=== PATIENT | female | born 1985 | race Caucasian/White ===

== ENCOUNTER 2021-06-14 04:26 | Emergency (ER) | payer SELFPAY ==
--- NOTE | ~2021-06-14 | XR_ITS ---
EXAMINATION: XR CHEST CLINICAL INFORMATION: COVID, difficulty breathing. COMPARISON: None TECHNIQUE: Frontal view of the chest was obtained. FINDINGS: No significant abnormality is noted involving the heart, lungs, mediastinum, bony thorax or soft tissues. XR/XR chest 1V IMPRESSION: No acute cardiopulmonary process.
[2021-06-14 04:44] VITALS: BP 108/59; PULSE 92; RESP 20; TEMP 36.6; O2SAT 99; BMI 21.9
--- NOTE | 2021-06-14 07:01 | ED_ITS ---
HPI - General Adult General Chief complaint: General Medical Stated complaint: COVID + Time Seen by Provider: 06/14/21 06:47 Source: patient and cloud consultant Mode of arrival: ambulatory Limitations: no limitations History of Present Illness HPI narrative: 35 years old female with history of asthma presented with COVID like symptoms. [place] from [place], is sick with COVID like symptoms and patient think she contracted the infection from her , patient is known asthmatic, in having difficulty breathing and wheezing, subjective fever. Been having productive cough with clear sputum. And mild headache, generalized body ache, subjective fever. No lower extremity swelling, Related Data Previous Rx's Medication Instructions Recorded acetaminophen 325 mg tablet 325 mg PO QID PRN #30 tab 06/14/21 (Athenol) albuterol sulfate 90 mcg/actuation 1 puff INHALATION QID PRN #6.7 g 06/14/21 aerosol inhaler (ProAir HFA) Allergies Allergy/AdvReac Type Severity Reaction Status Date / Time Penicillins Allergy Severe Anaphylaxis Verified 06/14/21 06:59 Review of Systems Review of Systems: All other systems are reviewed and are negative Constitutional: Reports as per HPI and Reports no additional constitutional complaints Eyes: Reports as per HPI and Reports no additional eye complaints Reports system reviewed and no additional complaints, except as documented Cardiovascular: Reports as per HPI and Reports no additional cardiovascular complaints Respiratory: Reports as per HPI and Reports no additional respiratory complaints Gastrointestinal: Reports as per HPI and Reports no additional gastrointestinal complaints Genitourinary: Reports no additional female genitourinary complaints Musculoskeletal: Reports no additional musculoskeletal complaints Skin/Breast: Reports system reviewed and no additional complaints, except as docu Psychiatric: Reports no additional psychiatric complaints Endocrine: Reports no additional endocrine complaints Hematologic/Lymphatic: Reports no additional hematologic/lymphatic complaints Allergic/Immunologic: Reports no additional allergic/immunologic complaints Reports system reviewed and no additional complaints, except as documented and Reports Abnormal speech present [facility] Social History Social History Advance Directives: No Advance Directives Information Provided: Yes Physical Exam Vital Signs: Vital Signs: Last Vital Signs Temp 98.5 F 06/14/21 07:27 Pulse 84 06/14/21 08:06 Resp 18 06/14/21 08:06 BP 107/62 06/14/21 07:27 Pulse Ox 96 06/14/21 07:27 BMI result Body Mass Index 21.9 Vital signs have been reviewed as appeared to be correct. Blood pressure normal. Heart rate normal. Respiration rate normal. Temperature normal. Oxygen saturation normal. Appearance: Alert. Oriented X3. No acute distress. Head: Normal external exam. Normocephalic. Atraumatic. No Nice signs noted. No raccoon eyes noted Eyes: PERRLA. EOMI. Conjunctiva and sclera normal. Eyelids normal. ENT: TM's Normal. Pharynx normal. Uvula midline. Moist mucous membranes. No trismus noted. No drooling noted. No muffled voice noted. Neck: Normal inspection. Neck supple. FROM. No adenopathy. Thyroid Normal. No meningeal signs. No neck mass noted. CVS: Normal heart rate and rhythm. Heart sound normal. No murmurs noted. Pulses normal throughout. Respiratory: No respiratory distress. Painless inspiration. Breath sounds normal. Bilateral diffuse mild expiratory wheezing, with prolonged expiration. Abdomen: Soft and nontender. Bowel sounds normal in all 4 quadrants. No distention noted. No organomegaly noted. No visible injury noted. Back: No CVA tenderness. Full range of motion noted. Skin: Skin warm and dry. Normal skin color. Normal skin turgor. No rashes/lesions/lacerations noted. Extremities: No lower extremity edema. Extremities exhibit normal range of motion. Extremities nontender. Neuro: Oriented X 3. Cranial nerve exam: II-XII are grossly intact No motor deficit. No sensory deficit. Reflexes normal. Course Course Course Narrative: Assessment and plan. 35-year-old female came in with flu-like symptoms, patient tested positive for COVID, patient has a sick contact (). Patient with history of asthma physical exam is consistent with acute asthma exacerbation, patient is improving with bronchodilator. Patient also complain of headache as part of COVID infection patient was instructed to take Tylenol for it. Medical Decision Making Lab Data Lab results reviewed: Yes I reviewed the patient's lab results. Labs: Lab Results 06/14/21 06/14/21 06/14/21 Range/Units 07:37 07:37 07:42 Urine Color YELLOW Urine Appearance CLEAR Urine pH 6.0 (5.0-8.0) Ur Specific [place] 1.015 (1.005-1.025) Urine Protein NEG (NEG-TRACE) MG/DL Urine Glucose (UA) NEG (NEG) MG/DL Urine Ketones NEG (NEG) MG/DL Urine Blood TRACE (NEG) Urine Nitrite NEG (NEG) Ur Leukocyte Esterase NEG (NEG) Urine RBC 0-2 (0) /HPF Urine WBC 0-2 (0-4) /HPF Ur Squamous Epith Cells TRACE /LPF Urine Bacteria TRACE /LPF Urine Test NEGATIVE (NEGATIVE) Influenza Type A (PCR) NEGATIVE (Negative) Influenza Type B (PCR) NEGATIVE (Negative) RSV RNA Qual (PCR) NEGATIVE (Negative) SARS-CoV-2 RNA (RT-PCR) POSITIVE A (Negative) Imaging Data Chest x-ray: Attestation: I personally reviewed and interpreted this imaging study as follows: Radiologist's impression: No acute cardiopulmonary process. Discharge Plan Discharge Clinical Impression: COVID-19 virus infection, Asthma exacerbation Patient Disposition: Home, Self-Care Instructions: Asthma (ED), COVID-19 (Coronavirus Disease 2019) (ED) Prescriptions: New albuterol sulfate [ProAir HFA] 90 mcg/actuation HFA aerosol inhaler 1 puff inhalation QID PRN (Reason: shortness of breath or wheezing) Qty: 6.7 RF: 0 acetaminophen [Athenol] 325 mg tablet 325 mg PO QID PRN (Reason: fever or pain) Qty: 30 RF: 0 Referrals: Physician,Unknown J [Primary Care Provider] - 2 days
[2021-06-14] MEDS: Acetaminophen 325 MG TABLET 650 MG PO ×2 (07:25→09:38)
[2021-06-14 07:27] VITALS: BP 107/62; PULSE 86; RESP 16; TEMP 36.9; O2SAT 96
[2021-06-14 07:48] LABS: Appearance Urine CLEAR; Color Urine YELLOW; Glucose Urine UA NEG (NEG); Leukocyte Esterase Urine NEG (NEG); Nitrite Urine NEG (NEG); Specific Gravity - Urine 1.015 (1.005-1.025); UACC Culture Trigger NO; Urine Blood TRACE (NEG); Urine Ketones NEG (NEG); Urine Protein NEG (NEG-TRACE)
[2021-06-14 07:50] LABS: UPreg QC Valid YES; Urine Pregnancy NEGATIVE (NEGATIVE)
[2021-06-14 08:00] LABS: Squamous Epithelial Cell Urine TRACE /LPF
[2021-06-14 08:01] LABS: Bacteria Urine TRACE /LPF; RBC Urine 0-2 /HPF (0); WBC Urine 0-2 /HPF (0-4)
[2021-06-14] MEDS: Albuterol Sulfate 90 MCG 8 GM INHALER 2 PUFF INHALE (08:05)
[2021-06-14 08:06] VITALS: PULSE 84; RESP 18; O2SAT 95
[2021-06-14 08:26] LABS: Influenza A PCR NEGATIVE (Negative); Influenza B PCR NEGATIVE (Negative); Resp Syncy Virus RNA Qual PCR NEGATIVE (Negative); SARS COV2 PCR INHOUSE POSITIVE (Negative)
[2021-06-14 09:38] VITALS: BP 111/42; PULSE 77; RESP 16; TEMP 36.7; O2SAT 99
== END 2021-06-14 09:43 | disposition home or self-care (01) ==
PROVIDERS: Emergency Provider Emergency Medicine
DX: U07.1 COVID-19 (principal); J45.901 Unspecified asthma with (acute) exacerbation; R51.9 Headache, unspecified
CPT/HCPCS: 0241U; 71045; 81001; 81025; 94640; 99284

== ENCOUNTER 2021-08-30 15:41 | Emergency (ER) | payer MEDICAID, SELFPAY ==
[2021-08-30 16:17] VITALS: BP 107/52; PULSE 88; RESP 18; TEMP 36.8; O2SAT 100; BMI 21.1
--- NOTE | 2021-08-30 16:47 | ECG_ITS ---
Test Reason : CP Blood Pressure : / mmHG Vent. Rate : 081 BPM Atrial Rate : 081 BPM P-R Int : 102 ms QRS Dur : 078 ms QT Int : 370 ms P-R-T Axes : -20 079 061 degrees QTc Int : 429 ms Sinus rhythm with short AK Otherwise normal ECG No previous ECGs available Referred By: Barbara Catherine Electronically Signed By:CRISTHIAN LANDAVERDE
--- NOTE | 2021-08-30 16:50 | ED_ITS ---
HPI - General Adult General Chief complaint: General Medical Stated complaint: body aches,chest pain ,vomiting Time Seen by Provider: 08/30/21 16:30 Source: patient Mode of arrival: ambulatory Limitations: no limitations History of Present Illness HPI narrative: Patient is a 35-year-old female with a past medical history of asthma. She presents emergency department today for evaluation of body aches, chest pain, and nausea/vomiting/diarrhea. Diffuse anterior chest pain , made worse by coughing deep breathing, states she has vomited about 5 times, yellow bile, and a couple episodes of diarrhea. She received her COVID-19 booster vaccination yesterday; Moderna. About 4 hours later she developed her symptoms. Reports feeling completely well prior to receiving booster vaccination. She received her 1st 2 doses with Moderna as well, and had no symptoms after. Related Data Previous Rx's Medication Instructions Recorded acetaminophen 325 mg tablet 325 mg PO QID PRN #30 tab 06/14/21 (Athenol) albuterol sulfate 90 mcg/actuation 1 puff INHALATION QID PRN #6.7 g 06/14/21 aerosol inhaler (ProAir HFA) ondansetron 4 mg disintegrating 4 mg PO Q8H PRN #12 tab 08/30/21 tablet Allergies Allergy/AdvReac Type Severity Reaction Status Date / Time Penicillins Allergy Severe Anaphylaxis Verified 06/14/21 06:59 Review of Systems Review of Systems: Constitutional: No weight loss, fever, chills, weakness or fatigue. ENT: No sneezing, congestion, runny nose or sore throat. Skin: No rash or itching. Cardiovascular: Positive chest pain. No palpitations or pedal edema. Respiratory: No shortness of breath, cough or sputum production. Gastrointestinal: Positive nausea, vomiting, diarrhea. No abdominal pain or blood in stool. Genitourinary: No burning micturition. No urinary frequency or incontinence. Neurologic: No headache, dizziness, syncope, unilateral weakness, ataxia, numbness or tingling in the extremities. Musculoskeletal: Generalized body aches Hematologic: No bleeding or bruising. Lymphatics: No enlarged lymph nodes. Psychiatric:No depression or anxiety. Endocrine: No polyuria or polydipsia. Yes all other systems are reviewed and are negative PMFSH Past Medical History Attestation statement: The following information was validated with the patient. Source: old records reviewed Social History Social History Advance Directives: No Advance Directives Information Provided: No Physical Exam ED Vital Signs: Vital Signs - 24 hr 08/30/21 16:17 08/30/21 18:54 Temperature 98.2 F 98.6 F Pulse Rate 88 96 Respiratory Rate 18 16 Blood Pressure 107/52 L 109/55 L Pulse Oximetry 100 99 BMI result Body Mass Index 21.1 Vital signs have been reviewed as normal and appeared to be correct. Blood pressure normal.? Heart rate normal.? Respiration rate normal. Temperature normal.? Oxygen saturation normal. Appearance: Alert.?Oriented to person, place and time. No acute distress.?Normal affect. Eyes: Pupils equal, round and reactive to light.? ENT: Pharynx normal.?? Neck: Normal inspection.? Neck supple.?? CVS: Heart sounds normal. Normal heart rate and rhythm.? Pulses normal.?? Respiratory: No respiratory distress.? Lung sounds clear to auscultation bilaterally?? Abdomen: Soft and non-tender. Normoactive bowel sounds. No pulsatile mass.?? Skin: Skin warm and dry.? Normal skin color.? Normal skin turgor.?? Extremities: No lower extremity edema.? Neuro: Moves all extremities spontaneously. Sensation intact bilaterally. CN II- XII intact. No focal neuro deficits. Ambulates with normal steady gait. Course Course Course Narrative: Patient improved old male being evaluated for body aches, chest pain, N/V/D after receiving COVID-19 booster vaccination. Will obtain basic labs to evaluate for leukocytosis, anemia, abnormal electrolytes, abnormal renal function. EKG and troponin to evaluate for ischemia, possible myocarditis after receiving COVID-19 vaccine, no risk factors so unlikely to be ACS. COVID-19 and influenza testing to be obtained. Patient will receive Tylenol and ibuprofen for body aches, denies nausea at this time. Disposition will be pending results. Reevaluation(s) Reevaluation #1: COVID-19 and influenza testing are negative. CBC reveals a mild leukocytosis. BMP with hypokalemia, 3.0, will replace with potassium chloride 40 mEq, magnesium is normal 2.0. Troponin undetectable, EKG reveals sinus rhythm, no acute concerns for ischemia, therefore unlikely to be ACS or myocarditis. Patient tolerating foor and drink, no nausea or vomiting. Time: 18:58 Medical Decision Making Medical Records Medical records reviewed: Yes I reviewed the patient's medical records. Lab Data Lab results reviewed: Yes I reviewed the patient's lab results. Result diagrams: 08/30/21 17:45 08/30/21 17:45 Labs: Lab Results 08/30/21 08/30/21 08/30/21 Range/Units 17:45 17:45 17:45 WBC 11.9 H (4.8-10.8) X10*3/uL RBC 4.66 (4.20-5.50) X10*6/uL Hgb 12.4 (12.0-16.0) g/dl Hct 37.9 (37.0-47.0) % MCV 81.3 (80.0-98.0) fL MCH 26.6 L (27.0-33.0) pg MCHC 32.7 (31.0-35.0) g/dl RDW 13.6 (11.0-16.0) % Plt Count 298 (160-400) X10*3/uL MPV 10.2 (9.4-12.3) fL Immature Gran % (Auto) 0.5 H (0.0-0.4) % Neut % (Auto) 80.2 H (45-73) % Lymph % (Auto) 10.9 L (20-40) % Whitman % (Auto) 8.0 (2-11) % Eos % (Auto) 0.1 (0-4) % Baso % (Auto) 0.3 (0-2) % Lymph # (Auto) 1.3 (1.2-4.9) X10*3/uL Whitman # (Auto) 1.0 (0.1-1.2) X10*3/uL Eos # (Auto) 0.0 (0.0-0.4) X10*3/uL Baso # (Auto) 0.0 (0.0-0.2) X10*3/uL Abs Immat Gran (auto) 0.06 H (0.00-0.03) X10*3/uL Absolute Neuts (auto) 9.6 H (2.0-8.3) x10*3/uL Absolute Nucleated RBC 0.000 (0.0-0.012) X10*3/uL Nucleated RBC % (auto) 0.0 (0.0-0.2) /100WBC Sodium (135-145) mmol/L Potassium (3.3-5.1) mmol/L Chloride (96-108) mmol/L Carbon Dioxide (22-29) mmol/L Anion Gap (12-20) BUN (9-16) mg/dL Creatinine (0.5-1.4) mg/dL Estim Creat Clear Calc Estimated GFR Random Glucose (60-115) mg/dL Calcium (8.4-10.2) mg/dL Magnesium (1.6-2.6) mg/dL Troponin I High Sens (<3.5-17.0) ng/L COVID-19 (FREDDIE) Negative (Negative) COVID-19 Clin Com See Note Influenza Type A (KIMBERLEY) Negative (Negative) Influenza Type B (KIMBERLEY) Negative (Negative) Influenza A & B Note See Note 08/30/21 08/30/21 Range/Units 17:45 17:45 WBC (4.8-10.8) X10*3/uL RBC (4.20-5.50) X10*6/uL Hgb (12.0-16.0) g/dl Hct (37.0-47.0) % MCV (80.0-98.0) fL MCH (27.0-33.0) pg MCHC (31.0-35.0) g/dl RDW (11.0-16.0) % Plt Count (160-400) X10*3/uL MPV (9.4-12.3) fL Immature Gran % (Auto) (0.0-0.4) % Neut % (Auto) (45-73) % Lymph % (Auto) (20-40) % Whitman % (Auto) (2-11) % Eos % (Auto) (0-4) % Baso % (Auto) (0-2) % Lymph # (Auto) (1.2-4.9) X10*3/uL Whitman # (Auto) (0.1-1.2) X10*3/uL Eos # (Auto) (0.0-0.4) X10*3/uL Baso # (Auto) (0.0-0.2) X10*3/uL Abs Immat Gran (auto) (0.00-0.03) X10*3/uL Absolute Neuts (auto) (2.0-8.3) x10*3/uL Absolute Nucleated RBC (0.0-0.012) X10*3/uL Nucleated RBC % (auto) (0.0-0.2) /100WBC Sodium 137 (135-145) mmol/L Potassium 3.0 L (3.3-5.1) mmol/L Chloride 104 (96-108) mmol/L Carbon Dioxide 22 (22-29) mmol/L Anion Gap 14 (12-20) BUN 11 (9-16) mg/dL Creatinine 0.66 (0.5-1.4) mg/dL Estim Creat Clear Calc 122.9 Estimated GFR > 60 Random Glucose 91 (60-115) mg/dL Calcium 9.5 (8.4-10.2) mg/dL Magnesium 2.0 (1.6-2.6) mg/dL Troponin I High Sens < 3.5 (<3.5-17.0) ng/L COVID-19 (FREDDIE) (Negative) COVID-19 Clin Com Influenza Type A (KIMBERLEY) (Negative) Influenza Type B (KIMBERLEY) (Negative) Influenza A & B Note ECG Data Attestation: I personally reviewed and interpreted this ECG as follows: Prior ECG tracings: not available for review Interpretation: Rate: 80 Rhythm:? Sinus rhythm [place]:? Normal Normal P waves.? Short TN interval; 102, no delta wave Normal QRS complex.?? ST T wave :??No ST elevation, no ST depression, no T-wave inversion qTC: 429 prior studies:?none available The study has been interpreted contemporaneously by me. Discharge Plan Discharge Clinical Impression: Body aches after vaccination, Vomiting Patient Disposition: Home, Self-Care Additional Instructions: Your potassium was low, therefore we replaced that while you were here. Your symptoms are most consistent with reaction after receiving COVID-19 booster vaccination. Please use Tylenol and ibuprofen as needed for body aches, be sure to rest and drink plenty of fluids. You can use Zofran as needed for nausea and vomiting. Please contact your primary care provider to schedule a follow-up appointment within 3 days. You can return to the emergency department with any new or worsening symptoms or concerns. Prescriptions: New ondansetron 4 mg tablet,disintegrating 4 mg PO Q8H PRN (Reason: nausea and vomiting) Qty: 12 0RF No Action albuterol sulfate [ProAir HFA] 90 mcg/actuation HFA aerosol inhaler 1 puff inhalation QID PRN (Reason: shortness of breath or wheezing) Qty: 6.7 0RF acetaminophen [Athenol] 325 mg tablet 325 mg PO QID PRN (Reason: fever or pain) Qty: 30 0RF Interventions: ED Discharge Assessment Last Done: 08/30/21 19:43 Discharge Date/Time: 08/30/21 19:46
[2021-08-30] MEDS: Acetaminophen 325 MG TABLET 975 MG PO (17:04)
[2021-08-30] MEDS: Ibuprofen 600 MG TABLET PO (17:05)
[2021-08-30 17:52] LABS: MANUAL DIFF FLAG NO
[2021-08-30 17:55] LABS: Basophils Percent Auto 0.3 % (0-2); Eosinophils Percent Auto 0.1 % (0-4); Hematocrit 37.9 % (37.0-47.0); Hemoglobin 12.4 g/dl (12.0-16.0); Imm Gran Abs Auto 0.06 X10*3/uL (0.00-0.03); Imm Gran Pct Auto 0.5 % (0.0-0.4); Lymphocytes Absolute Auto 1.3 X10*3/uL (1.2-4.9); Lymphocytes Percent Auto 10.9 % (20-40); Mean Corpuscular HGB Conc 32.7 g/dl (31.0-35.0); Mean Corpuscular Hemoglobin 26.6 pg (27.0-33.0); Mean Corpuscular Volume 81.3 fL (80.0-98.0); Mean Platelet Volume 10.2 fL (9.4-12.3); Neutrophils Absolute Auto 9.6 x10*3/uL (2.0-8.3); Neutrophils Percent Auto 80.2 % (45-73); Platelet Count 298 X10*3/uL (160-400); Red Blood Count 4.66 X10*6/uL (4.20-5.50); Red Cell Distribution Width 13.6 % (11.0-16.0); White Blood Count 11.9 X10*3/uL (4.8-10.8)
[2021-08-30 18:09] LABS: Anion Gap 14 (12-20); Blood Urea Nitrogen 11 mg/dL (9-16); Calcium 9.5 mg/dL (8.4-10.2); Carbon Dioxide 22 mmol/L (22-29); Chloride 104 mmol/L (96-108); Creatinine Clr Calc Pharmacy 122.9; Estimated Glomerular Filt Rate > 60; Glucose Random 91 mg/dL (60-115); Sodium 137 mmol/L (135-145)
[2021-08-30 18:14] LABS: Influenza A Negative (Negative); Influenza B2 Negative (Negative)
[2021-08-30 18:16] LABS: COVID-19 Test Negative (Negative); Troponin-I High Sensitivity < 3.5 ng/L (<3.5-17.0)
[2021-08-30] MEDS: Potassium Chloride Packet 20 MEQ PACKET 40 MEQ PO (18:52)
[2021-08-30 18:54] VITALS: BP 109/55; PULSE 96; RESP 16; TEMP 37; O2SAT 99
--- NOTE | 2021-08-30 19:03 | PC.NURSE ---
PT GIVEN SANDWICH AND DRINK.
== END 2021-08-30 19:46 | disposition home or self-care (01) ==
PROVIDERS: Nurse Practitioner Family; Emergency Provider Emergency Medicine
DX: M79.10 Myalgia, unspecified site (principal); R07.89 Other chest pain; R11.10 Vomiting, unspecified; Z20.822 Contact with and (suspected) exposure to COVID-19; Z79.899 Other long term (current) drug therapy
CPT/HCPCS: 36415; 80048; 83735; 84484; 85025; 87502; 87635; 93005; 99283; 99284

== ENCOUNTER 2021-09-21 13:03 | Outpatient (REF) | payer MEDICAID, SELFPAY ==
--- NOTE | ~2021-09-21 | MM_ITS ---
EXAMINATION: MM DIAGNOSTIC DIGITAL BREAST TOMOSYNTHESIS, BILATERAL US DIAGNOSTIC ULTRASOUND BREAST, LEFT CLINICAL INFORMATION: 35-year-old with superior left breast pain for 1-2 weeks. No erythema or palpable mass. Intermittent milky unilateral left nipple discharge. Breast feeding discontinued approximately 18 months ago. No discharge from right. Bilateral nipple piercings performed approximately 5 days ago. No prior breast imaging. Family history breast cancer, paternal grandmother. The lifetime risk of breast cancer based on the Tyrer-Cuzick Model is 13%. COMPARISON: None (current study represents initial baseline exam). TECHNIQUE: Digital breast tomosynthesis is performed in both the craniocaudal and mediolateral oblique views along with computer-aided detection (CAD). Synthesized 2D images are generated from the tomosynthesis. Additional views are provided: Exaggerated left CC, spot left MLO x2, exaggerated right CC, spot right MLO. Ultrasound left breast is targeted to the area of clinical concern 10:00 through 2:00 position. In addition, subareolar and circumferential periareolar left breast also evaluated with ultrasound. Grayscale imaging and color Doppler are performed without and with harmonics. FINDINGS: The breasts are heterogeneously dense, which may obscure small masses (ACR BI-RADS breast composition Category c). There are no significant masses, abnormal calcifications, or other abnormalities. There is no skin thickening or coarsening of the Panchito's ligaments. The axilla and skin contours are unremarkable. There are bilateral nipple piercings. Ultrasound left breast demonstrates no cystic or solid mass or architectural abnormality. There is no architectural abnormality or focal duct ectasia. No skin thickening or edema tracking in soft tissue planes. Results are discussed with the patient at time of visit. Patient's breast pain may be managed based on the clinical impression. If the spontaneous unilateral left nipple discharge is persistent or increasing, further assessment may be considered with breast MRI without and with contrast. MM/MM tomosynthesis diagnostic BI IMPRESSION: -No mammographic evidence of malignancy or inflammatory changes. -Unremarkable left breast ultrasound.. ASSESSMENT: BI-RADS 1: Negative RECOMMENDATION: 1. Patient's breast pain should be managed based on the clinical impression. If the spontaneous unilateral left nipple discharge is persistent or increasing, further assessment may be considered with breast MRI without and with contrast. 2. Otherwise, routine annual screening mammography, beginning age 40 or earlier as clinical risk factors warrant. This patient's information was entered into a reminder system with a target due date for their next mammogram.
== END 2021-09-21 13:04 | disposition home or self-care (01) ==
LOC: HO.MAMMO 13:03
PROVIDERS: PCP Internal Medicine; Visit Provider Advanced Practice Midwife
DX: N64.4 Mastodynia (principal)
CPT/HCPCS: 76642; 77062; 77066

== ENCOUNTER 2021-10-23 15:13 | Outpatient (REF) | payer MEDICAID, SELFPAY ==
--- NOTE | ~2021-10-23 | MR_ITS ---
EXAMINATION: MR BRAIN WITHOUT AND WITH CONTRAST CLINICAL INFORMATION: 36-year-old female with epilepsy. Patient states syncopal episodes and loss of bladder control with vomiting. COMPARISON: None. TECHNIQUE: Multiplanar, multisequence MRI of the brain was obtained before and after the intravenous administration of 7 mL Gadavist. FINDINGS: Brain Volume: Within normal limits within the limitations of a qualitative assessment. Structural: 6 mm benign pineal cyst. Brain and Meninges: DWI sequence demonstrates no restricted diffusion to suggest acute or subacute cerebral ischemia or postictal state. Gradient refocused imaging demonstrates no evidence for hemorrhage, hemosiderin staining or abnormal mineral deposition. No extra-axial fluid collections are identified. The mesial temporal lobe structures are relatively symmetric in appearance bilaterally and normal in signal intensity without focal mass or abnormal enhancement. Note that the coronal T2-weighted images only acquired half of the normal acquisition. A few punctate FLAIR/T2 signal hyperintensities are seen in the right subinsular white matter and left external capsule which are nonspecific findings without abnormal enhancement. Otherwise, the remainder of the brain is normal in morphology and signal intensity. No intracranial mass lesion, abnormal brain parenchymal or leptomeningeal enhancement, space-occupying process or mass effect. Garcia-white matter interface appears preserved. Ventricles and Subarachnoid Spaces: The ventricular system and subarachnoid spaces are within normal limits without hydrocephalus with a small cavum septum pellucidum. Orbital Structures: Limited visualization. Grossly unremarkable within the limitations of the study. Vascular: Signal voids are noted in the visualized major intracranial vessels. Osseous Structures, Sinuses/Mastoids, Extracranial Soft Tissues: Unremarkable MR/MR head/brain wo/w con IMPRESSION: A few nonspecific nonenhancing punctate T2 hyperintensities in the right subcortical insular white matter and left external capsule posteriorly. Otherwise, unremarkable MRI of the brain without and with contrast.
== END 2021-10-23 15:14 | disposition home or self-care (01) ==
LOC: HO.MRI 15:13
PROVIDERS: Visit Provider Psychiatry & Neurology Neurology
DX: G40.909 Epilepsy, unspecified, not intractable, without status epilepticus (principal)
CPT/HCPCS: 70553; A9585

== ENCOUNTER 2022-02-01 15:09 | Outpatient (REF) | payer MEDICAID, SELFPAY ==
--- NOTE | ~2022-02-01 | US_ITS ---
EXAMINATION: US PELVIS CLINICAL INFORMATION: Ovarian cyst, last menstrual period about 3 years ago. Per maintenance shop welder, patient states history of bilateral ovarian torsion and patient was unsure if her ovaries have been removed. COMPARISON: None TECHNIQUE: Ultrasound of the pelvis is performed using both transabdominal and transvaginal transducers along with Doppler. Transvaginal imaging is performed due to inadequate visualization transabdominally. FINDINGS: The uterus is diffusely heterogeneous and measures 8.2 x 3.9 x 3.8 cm. No discrete fibroids identified. Uterus is retropositioned. No significant free fluid. Endometrium difficult to evaluate as margins are ill defined and demonstrates a possible thickness of 0.3 cm. Right ovary measures 4.4 x 3.5 x 3.6 cm, volume 29.0 mL. 4.3 x 3.3 x 3.4 cm right ovarian cyst is likely simple. Left ovary measures 3.7 x 1.3 x 1.6 cm, volume 4.0 mL. 1.6 x 0.9 x 1.3 cm left ovarian cyst is likely physiologic. Multiple nabothian cysts identified. US/US pelvic and transvaginal IMPRESSION: 1. Endometrium very difficult to visualize and evaluate due to uterine retropositioning and heterogeneity. Imaged portion of endometrium possibly demonstrates thickness of 0.3 cm. 2. Right ovarian 4.3 cm cyst and left ovarian 1.6 cm cyst are likely simple and likely physiologic. 3. No significant free fluid. Recommend correlation with clinical exam, possible gynecologic consultation and followup ultrasound in 6-8 weeks.
== END 2022-02-01 15:10 | disposition home or self-care (01) ==
LOC: HO.US 15:09
PROVIDERS: Visit Provider Advanced Practice Midwife
DX: N83.299 Other ovarian cyst, unspecified side (principal)
CPT/HCPCS: 76830; 76856

== ENCOUNTER 2022-04-04 14:39 | Emergency (ER) | payer OTHER, MEDICAID, SELFPAY ==
[2022-04-04 16:23] VITALS: BP 129/72; PULSE 88; RESP 18; TEMP 37.2; O2SAT 100; BMI 25.1
--- NOTE | 2022-04-04 17:58 | ED_ITS ---
HPI - Wound/Laceration General Chief Complaint: Wound/Laceration Stated Complaint: HAND LACERATION AT WORK Time Seen by Provider: 04/04/22 17:47 Source: patient Mode of arrival: ambulatory Limitations: no limitations History of Present Illness HPI narrative: 36 yo female presents to the ER for evaluation a laceration on her left thumb sustained 1 week ago at work with a snuff box finisher. She reports the laceration aureliano ps opening up whenever she moves her thumb or lifts boxes at work. Today it opened up again and bled. She came to the ER for further evaluation. She reports pain with her fist closing and numbness of the cut itself. Onset (ago): week(s) (1) Extremity Location: left: hand (thenar emienence ) Place: work Patient tetanus UTD: Yes Context: accidental Associated symptoms: pain Treatments prior to arrival: bandage Related Data Previous Rx's Medication Instructions Recorded acetaminophen 325 mg tablet 325 mg PO QID PRN fever or pain 06/14/21 (Athenol) #30 tabs albuterol sulfate 90 mcg/actuation 1 puff inhalation QID PRN 06/14/21 aerosol inhaler (ProAir HFA) shortness of breath or wheezing #6.7 grams ondansetron 4 mg disintegrating 4 mg PO Q8H PRN nausea and 08/30/21 tablet vomiting #12 tabs ibuprofen 600 mg tablet 600 mg PO Q8H PRN pain #20 tabs 04/04/22 Allergies Allergy/AdvReac Type Severity Reaction Status Date / Time Penicillins Allergy Severe Anaphylaxis Verified 06/14/21 06:59 Review of Systems Review of Systems: Constitutional: No Fever, No Chills Cardiovascular: No Chest Pain, No SOB Gastrointestinal: No Nausea, No Vomiting Musculoskeletal: No joint pain, No Myalgias Skin: + Skin Lesions, No rash Neuro: + Weakness, No Numbness Psych: No Anxiety/Panic, No Depression Heme/Lymph: No Bruising, No Lymphadenopathy Physical Exam Vital Signs: Vital Signs: Last Vital Signs Temp 98.9 F 04/04/22 16:23 Pulse 88 04/04/22 16:23 Resp 18 04/04/22 16:23 BP 129/72 04/04/22 16:23 Pulse Ox 100 04/04/22 16:23 O2 Del Method 04/04/22 16:23 BMI result Body Mass Index 25.1 Appearance: Alert. Oriented X3. No acute distress. HEENT: normal inspection CVS: Normal heart rate and rhythm. Pulses normal. Respiratory: No respiratory distress. Skin: Skin warm and dry. Normal skin color. Normal skin turgor. No rashes. Extremities: left thenar eminence with a 2cm linear laceration, well approximate edges, mild surrounding erythema of the wound margins itself, no warmth or drainage. normal ROM of all digits with pain with flexion of thumb at MCP Neuro: Oriented X 3. No motor deficit. No sensory deficit. Course Course Course Narrative: 36-year-old female presents to the ER for evaluation of a linear laceration on her left thenar eminence sustained with a snuff box finisher 1 week ago. The wound is well-approximated and not gaping. She reports it opened up again today with frequent usage at work. For reinforcement and stability the wound reinforced with Steri-Strips for adequate closure. A thumb spica was applied for support. No evidence of tendon involvement as she has normal sensation and range of motion. Wound care discussed. Work note provided for tomorrow per request. Stable for discharge home. Patient agrees with plan. Procedures Laceration Laceration 1: Site: hand Side (If applicable): left Size (cm): 3 Description: linear Depth: simple, single layer Skin layer closed with: other (steri-strips) Discharge Plan Discharge Clinical Impression: Laceration Patient Disposition: Home, Self-Care Additional Instructions: Do not get your steri-strips wet today. After tomorrow you can gently wash with soap and water, then pat dry. Wear the provided splint as needed for support. Take the prescribed anti-inflammatory medication as needed for pain and swelling Prescriptions: New ibuprofen 600 mg tablet 600 mg PO Q8H PRN (Reason: pain) Qty: 20 0RF No Action albuterol sulfate [ProAir HFA] 90 mcg/actuation HFA aerosol inhaler 1 puff inhalation QID PRN (Reason: shortness of breath or wheezing) Qty: 6.7 0RF acetaminophen [Athenol] 325 mg tablet 325 mg PO QID PRN (Reason: fever or pain) Qty: 30 0RF ondansetron 4 mg tablet,disintegrating 4 mg PO Q8H PRN (Reason: nausea and vomiting) Qty: 12 0RF Stand Alone Forms: Work/School Release
== END 2022-04-04 19:37 | disposition home or self-care (01) ==
LOC: HO.ED 18:58
PROVIDERS: Emergency Provider Emergency Medicine; PCP Internal Medicine
DX: S61.012A Laceration without foreign body of left thumb without damage to nail, initial encounter (principal); W27.8XXA Contact with other nonpowered hand tool, initial encounter; Y93.89 Activity, other specified; Y92.512 Supermarket, store or market as the place of occurrence of the external cause; Y99.0 Civilian activity done for income or pay
CPT/HCPCS: 29125; 99283

== ENCOUNTER 2022-05-03 12:35 | Outpatient (REF) | payer MEDICAID, SELFPAY ==
--- NOTE | ~2022-05-03 | US_ITS ---
EXAMINATION: US PELVIS CLINICAL INFORMATION: Bilateral ovarian cysts. COMPARISON: Ultrasound pelvis 02/01/2022. TECHNIQUE: Ultrasound of the pelvis is performed using both transabdominal and transvaginal transducers along with Doppler. Transvaginal imaging is performed due to inadequate visualization transabdominally. FINDINGS: Uterus: The uterus is anteverted and measures 8.2 x 3.6 x 4.7 cm. The ill-defined double wall endometrial thickness is 4 mm. The uterus is smooth in contour and has normal myometrial echogenicity. A small fundal fibroid seen on transabdominal imaging only measuring 1.2 cm is seen, not appreciated previously. Adnexa: Both ovaries are visualized. There is normal color flow to the adnexa. There is no ovarian torsion. There is no pelvic ascites or fluid collection. Right ovary measures 5.1 x 3.3 x 3.7 cm which includes a 3.8 x 2.3 x 4.1 cm (previously 4.3 x 3.3 x 3.4 cm) probable hemorrhagic cyst. Left ovary measures 2.8 x 1.8 x 1.4 cm for a volume of 3.7 mL which includes a 1.7 x 1.6 x 1.2 cm corpus luteum cyst. US/US pelvic and transvaginal IMPRESSION: Bilateral ovarian cysts. No follow up is needed.
== END 2022-05-03 12:36 | disposition home or self-care (01) ==
LOC: HO.US 12:35
PROVIDERS: Visit Provider Advanced Practice Midwife
DX: N83.291 Other ovarian cyst, right side (principal); N83.292 Other ovarian cyst, left side
CPT/HCPCS: 76830; 76856

== ENCOUNTER 2022-07-12 21:08 | Emergency (ER) | payer MEDICAID, SELFPAY ==
--- NOTE | ~2022-07-12 | XR_ITS ---
EXAMINATION: PORTABLE CHEST 1 VIEW CLINICAL INFORMATION: chest wall pain w/ cough . COMPARISON: No recent pertinent prior studies are available for comparison. TECHNIQUE: Portable frontal view of the chest was obtained. FINDINGS: The lungs are well expanded. No focal infiltrate, effusion, edema, or pneumothorax. Cardiac and mediastinal silhouettes are within normal limits for technique. No acute bony abnormality seen. Chronic dense calcification within the right proximal femoral diaphysis again noted XR/XR chest 1V IMPRESSION: No evidence of acute disease.
[2022-07-12 21:18] VITALS: BP 107/42; PULSE 69; RESP 16; TEMP 36.8; O2SAT 99; BMI 23.8
[2022-07-12 22:39] VITALS: BP 114/63; PULSE 81; RESP 16; TEMP 36.7; O2SAT 99
[2022-07-12 23:24] LABS: Influenza A PCR NEGATIVE (Negative); Influenza B PCR NEGATIVE (Negative); Resp Syncy Virus RNA Qual PCR NEGATIVE (Negative); SARS COV2 PCR INHOUSE NEGATIVE (Negative)
--- NOTE | 2022-07-12 23:31 | ED_ITS ---
HPI - General Adult General Chief complaint: General Medical Stated complaint: chest pain,sore throat vomiting Time Seen by Provider: 07/12/22 23:06 Source: patient Mode of arrival: ambulatory Limitations: no limitations History of Present Illness HPI narrative: Patient comes to the emergency room complaining of 4 days of diffuse body aches, eye burning sensation, cough, congestion. Denies fever chills. Patient complaining of nausea, states she has nausea medication at home but make her more nauseous. Related Data Previous Rx's Medication Instructions Recorded acetaminophen 325 mg tablet 325 mg PO QID PRN fever or pain 06/14/21 (Athenol) #30 tabs albuterol sulfate 90 mcg/actuation 1 puff inhalation QID PRN 06/14/21 aerosol inhaler (ProAir HFA) shortness of breath or wheezing #6.7 grams ondansetron 4 mg disintegrating 4 mg PO Q8H PRN nausea and 08/30/21 tablet vomiting #12 tabs ibuprofen 600 mg tablet 600 mg PO Q8H PRN pain #20 tabs 04/04/22 prochlorperazine 25 mg rectal 25 mg SD BID PRN nausea and 07/12/22 suppository (Compazine) vomiting #10 ea Allergies Allergy/AdvReac Type Severity Reaction Status Date / Time Penicillins Allergy Severe Anaphylaxis Verified 06/14/21 06:59 Review of Systems Review of Systems: Constitutional : No Weight loss, No Fever, No Chills, No Night Sweats, No Fatigue, No Malaise ENT/Mouth : No Hearing loss, No Ear Pain, No Nasal Congestion, No Sinus Pain, No Hoarseness, No sore throat, No Rhinorrhea, No Swallowing Difficulty Eyes: No Eye Pain, No Swelling, No Redness, No Foreign Body, No Discharge, No Vision Changes Cardiovascular : No Chest Pain, No SOB, No Dyspnea on Exertion, No Orthopnea, No Edema, No Palpitations Respiratory : Complaining of cough, burning sensation with deep inspiration, no shortness of breath Gastrointestinal : No Nausea, No Vomiting, No Diarrhea, No Constipation, No abdominal Pain, No Hematochezia, No Melena Genitourinary : no irregular bleeding, No Dysuria, No Urinary Frequency, No Hematuria, No Urinary Incontinence, No Urgency, No Flank Pain, No Urinary Flow Changes, No Hesitancy Musculoskeletal : No joint pain, No Myalgias, No Joint Swelling Skin : No Skin Lesions, No rash Neuro : No Weakness, No Numbness, No Paresthesias, No Loss of Consciousness, No Dizziness, No Headache Psych : No Anxiety/Panic, No Depression, No SI/HI/AH/VH, No Social Issues, Heme/Lymph: No Bruising, No Bleeding,No Lymphadenopathy Endocrine : No Polyuria, No Polydipsia, No Temperature Intolerance PMF Past Medical History Medical History (Updated 07/12/22 @ 23:37 by Amber Dickens MD) Asthma exacerbation Social History Social History Advance Directives: No Physical Exam ED Vital Signs: Vital Signs - 24 hr 07/12/22 21:18 07/12/22 22:39 Temperature 98.3 F 98.1 F Pulse Rate 69 81 Respiratory Rate 16 16 Blood Pressure 107/42 L 114/63 Pulse Oximetry 99 99 Oxygen Delivery Method Room Air Room Air BMI result Body Mass Index 23.8 Const Other: Appearance: Alert. Oriented X3. No acute distress. Eyes: Pupils equal, round and reactive to light. Injected sclera bilaterally, no discharge ENT: Pharynx normal. Neck: Normal inspection. Neck supple. No lymph nodes noted. No crepitus CVS: Normal heart rate and rhythm. Pulses normal. Normal S1 and S2 Respiratory: No respiratory distress. Breath sounds normal. No Wheezing. No rales Abdomen: Soft and nontender. No rigidity. No distention. Skin: Skin warm and dry. Normal skin color. Normal skin turgor. Extremities: No lower extremity edema. No Lacerations. No Rash Neuro: Oriented X 3. No motor deficit. No sensory deficit. Moving all extremities. No slurred speech. CN 2 through 12 grossly intact Psych: calm, cooperative, normal affect Course Course Course Narrative: -patient's serology pending. Chest x-ray pending. Medical Decision Making Medical Decision Making [facility] Narrative: -chest x-ray within normal limits, no acute findings. -patient requesting rectal suppositories Lab Data [facility] Lab Attestation statement: I reviewed the patient's lab results. Labs: Lab Results 07/12/22 Range/Units 22:33 Influenza Type A (PCR) NEGATIVE (Negative) Influenza Type B (PCR) NEGATIVE (Negative) RSV RNA Qual (PCR) NEGATIVE (Negative) SARS-CoV-2 RNA (RT-PCR) NEGATIVE (Negative) Independent Interpretation I performed an independent interpretation of an: Plain X-Ray (Chest x-ray main to patient, no acute findings) Radiology Impression Discussion of test interpretation with radiology: I have reviewed the radiologist's reading. Radiologist Impression: FINDINGS: The lungs are well expanded. No focal infiltrate, effusion, edema, or pneumothorax. Cardiac and mediastinal silhouettes are within normal limits for technique. No acute bony abnormality seen. Chronic dense calcification within the right proximal femoral diaphysis again noted XR/XR chest 1V IMPRESSION: No evidence of acute disease. Discharge Plan Discharge Clinical Impression: Acute viral syndrome Patient Disposition: Home, Self-Care Instructions: Viral Syndrome (ED) Additional Instructions: Please follow-up with your primary care physician tomorrow. If you have any worsening or new symptoms, please return to the emergency room or call 911 Prescriptions: New prochlorperazine [Compazine] 25 mg suppository 25 mg SD BID PRN (Reason: nausea and vomiting) Qty: 10 0RF No Action albuterol sulfate [ProAir HFA] 90 mcg/actuation HFA aerosol inhaler 1 puff inhalation QID PRN (Reason: shortness of breath or wheezing) Qty: 6.7 0RF acetaminophen [Athenol] 325 mg tablet 325 mg PO QID PRN (Reason: fever or pain) Qty: 30 0RF ondansetron 4 mg tablet,disintegrating 4 mg PO Q8H PRN (Reason: nausea and vomiting) Qty: 12 0RF ibuprofen 600 mg tablet 600 mg PO Q8H PRN (Reason: pain) Qty: 20 0RF
[2022-07-13] MEDS: Magnesium Hydrox/Alum Hydrox 30 ML ORAL.SUSP PO
[2022-07-13] MEDS: Lidocaine HCl Viscous 2 % 15 ML SOLUTION MUCOUS MEM
== END 2022-07-13 00:14 | disposition home or self-care (01) ==
PROVIDERS: Emergency Provider Emergency Medicine
DX: B34.9 Viral infection, unspecified (principal); R07.89 Other chest pain; M79.10 Myalgia, unspecified site; Z20.822 Contact with and (suspected) exposure to COVID-19; Z20.828 Contact with and (suspected) exposure to other viral communicable diseases; Z79.899 Other long term (current) drug therapy
CPT/HCPCS: 0241U; 71045; 99283

== ENCOUNTER 2022-08-16 12:58 | Outpatient (REF) | payer MEDICAID, SELFPAY ==
--- NOTE | ~2022-08-16 | US_ITS ---
EXAMINATION: US PELVIS CLINICAL INFORMATION: Pelvic and perineal pain; the last menstrual period was on 07/25/2022. COMPARISON: None TECHNIQUE: Ultrasound of the pelvis is performed using both transabdominal and transvaginal transducers along with Doppler. Transvaginal imaging is performed due to inadequate visualization transabdominally. FINDINGS: Uterus: The uterus is anteverted and anteflexed. The uterus measures 8.3 x 3.2 x 4.6 cm. Nabothian cysts are seen within the cervix. The double wall endometrial thickness is 4 mm. The uterus is smooth in contour and has normal myometrial echogenicity. No visible fibroid. Adnexa: Both ovaries are visualized. There is normal color flow to the adnexa. There is no ovarian torsion. There is no pelvic ascites or fluid collection. Right ovary measures 3.0 x 1.3 x 1.9 cm, volume 3.9 mL. The right ovary contains a 1.6 x 1.2 x 1.5 cm hemorrhagic cyst with internal reticulated contents. Left ovary measures 5.1 x 3.5 and 3.4 cm, volume 32.0 mL. The left ovary contains a 3.2 x 2.1 x 2.8 cm hemorrhagic cyst with internal reticulated contents and a further 1.6 x 1.4 x 1.5 cm probable hemorrhagic cyst. US/US pelvic and transvaginal IMPRESSION: 1. There are bilateral ovarian probable hemorrhagic cysts. Recommend repeat pelvic ultrasound examination 6-12 weeks to ensure regression/resolution. 2. Nabothian cysts are seen within the cervix.
== END 2022-08-16 12:59 | disposition home or self-care (01) ==
LOC: HO.US 12:58
PROVIDERS: Visit Provider Nurse Practitioner Family
DX: R10.2 Pelvic and perineal pain (principal)
CPT/HCPCS: 76830; 76856

== ENCOUNTER 2022-10-02 21:03 | Emergency (ER) | payer MEDICAID, SELFPAY ==
[2022-10-02 21:07] VITALS: BP 152/103; PULSE 113; RESP 25; TEMP 37.1; O2SAT 96; BMI 21.1
--- NOTE | 2022-10-02 21:09 | ECG_ITS ---
Test Reason : CHEST PAIN Blood Pressure : / mmHG Vent. Rate : 072 BPM Atrial Rate : 072 BPM P-R Int : 118 ms QRS Dur : 074 ms QT Int : 362 ms P-R-T Axes : 056 071 053 degrees QTc Int : 396 ms Normal sinus rhythm Normal ECG When compared with ECG of 30-AUG-2021 17:30, No significant change was found Referred By: Generic ED Physician Electronically Signed By:CRISTHIAN LANDAVERDE
[2022-10-02 21:30] LABS: MANUAL DIFF FLAG NO
[2022-10-02 21:32] LABS: Basophils Percent Auto 0.2 % (0-2); Eosinophils Absolute Auto 0.1 X10*3/uL (0.0-0.4); Eosinophils Percent Auto 0.5 % (0-4); Hematocrit 40.4 % (37.0-47.0); Imm Gran Abs Auto 0.04 X10*3/uL (0.00-0.03); Imm Gran Pct Auto 0.3 % (0.0-0.4); Lymphocytes Absolute Auto 2.8 X10*3/uL (1.2-4.9); Lymphocytes Percent Auto 23.2 % (20-40); Mean Corpuscular HGB Conc 32.2 g/dl (31.0-35.0); Mean Corpuscular Hemoglobin 25.7 pg (27.0-33.0); Mean Corpuscular Volume 79.8 fL (80.0-98.0); Mean Platelet Volume 10.5 fL (9.4-12.3); Monocytes Absolute Auto 0.6 X10*3/uL (0.1-1.2); Monocytes Percent Auto 4.7 % (2-11); Neutrophils Absolute Auto 8.7 x10*3/uL (2.0-8.3); Neutrophils Percent Auto 71.1 % (45-73); Platelet Count 434 X10*3/uL (160-400); Red Blood Count 5.06 X10*6/uL (4.20-5.50); White Blood Count 12.2 X10*3/uL (4.8-10.8)
[2022-10-02 21:55] LABS: Anion Gap 16 (12-20); Blood Urea Nitrogen 10 mg/dL (9-16); Calcium 9.8 mg/dL (8.4-10.2); Carbon Dioxide 23 mmol/L (22-29); Chloride 106 mmol/L (96-108); Creatinine Clr Calc Pharmacy 105.4; Estimated Glomerular Filt Rate > 60; Glucose Random 86 mg/dL (60-115); Potassium 3.6 mmol/L (3.3-5.1); Sodium 141 mmol/L (135-145)
[2022-10-02 22:14] LABS: Troponin-I High Sensitivity < 2.7 ng/L (<3.5-17.0)
--- NOTE | 2022-10-02 23:42 | ED_ITS ---
HPI - Chest Pain General Chief Complaint: Chest Pain Stated Complaint: Chest pain/anxiety Time Seen by Provider: 10/02/22 23:35 Source: patient, RN notes reviewed and old records reviewed Mode of arrival: ambulatory Limitations: no limitations History of Present Illness HPI narrative: 36-year-old female past medical history significant for asthma, anxiety presents for evaluation of ?panic attacks. ? Patient reports that she got an unexpected call from our baby's father yesterday She stays is a her very stressed and anxious. She is not able to sleep all night and then she felt as if she is having panic attacks all day today She describes this as ?my heart skipping beats, being very tearful and vomiting. ? Denies any abdominal pain. She does endorse some chest pain Denies shortness of breath She states that she takes Risperdal, sertraline and clonazepam at home for her anxiety Denies any history of cardiac disease Related Data Previous Rx's Medication Instructions Recorded acetaminophen 325 mg tablet 325 mg PO QID PRN fever or pain 06/14/21 (Athenol) #30 tabs albuterol sulfate 90 mcg/actuation 1 puff inhalation QID PRN 06/14/21 aerosol inhaler (ProAir HFA) shortness of breath or wheezing #6.7 grams ondansetron 4 mg disintegrating 4 mg PO Q8H PRN nausea and 08/30/21 tablet vomiting #12 tabs ibuprofen 600 mg tablet 600 mg PO Q8H PRN pain #20 tabs 04/04/22 prochlorperazine 25 mg rectal 25 mg RI BID PRN nausea and 07/12/22 suppository (Compazine) vomiting #10 ea Allergies Allergy/AdvReac Type Severity Reaction Status Date / Time Penicillins Allergy Severe Anaphylaxis Verified 06/14/21 06:59 Review of Systems Constitutional: Constitutional: Reports as per HPI, Denies chills, Denies fatigue, Denies fever(s) and Denies headache(s) ENT: Denies headache(s) Cardiovascular: Cardiovascular: Reports chest pain and Denies dyspnea Respiratory: Respiratory: Denies cough and Denies dyspnea Gastrointestinal: Gastrointestinal: Denies abdominal pain, Denies constipation, Reports nausea and Reports vomiting Genitourinary: Genitourinary: Denies dysuria Neurologic: Denies headache(s) and Denies focal weakness Psychiatric: Psychiatric: Reports abnormal sleep pattern and Reports anxiety Endocrine: Endocrine: Denies fatigue PMFSH Past Medical History Medical History (Updated 10/02/22 @ 23:58 by Davin Castorena) Asthma exacerbation Social History Social History Smoked in Last 30 Days: No Use of substances other than those prescribed or required for medical reasons: No Advance Directives: No Advance Directives Information Provided: Yes Physical Exam Vital Signs: Vital Signs: Last Vital Signs Temp 98.8 F 10/02/22 21:07 Pulse 69 10/03/22 00:05 Resp 12 10/03/22 00:05 BP 106/66 10/03/22 00:05 Pulse Ox 98 10/03/22 00:05 O2 Del Method Room Air 10/03/22 00:05 BMI result Body Mass Index 21.1 Const: General: healthy appearing, comfortable, no acute distress, alert and awake Nutritional Appearance: well nourished Orientation/consciousness: patient oriented x3 HEENT: Head: Yes normocephalic and Yes atraumatic Throat: Yes posterior oropharynx normal Eyes: Eyelids: Yes eyelids normal Conjunctivae: conjunctivae normal Sclerae: sclerae normal Corneas: corneas normal Pupils: Equal, round and r eactive pupils present EOM: EOMs intact bilaterally Neck: Neck: Yes full ROM Resp: Effort & Inspection: normal respiratory effort, able to speak in complete sentences, no audible wheezes and not labored Auscultation: clear to auscultation bilaterally Cardio: Rate: regular rate Rhythm: regular rhythm GI: Inspection: No distended Palpation (GI): Soft to palpation, not firm, n ontender, no guarding and not rigid Auscultation: normoactive bowel sounds Skin: General skin exam: no rashes or lesions noted and elasticity normal Neuro: General: patient oriented x3 Cranial nerves: Yes CN's II-XII intact bilaterally, Yes Equal, round and reactive pupils present and Yes Bilaterally intact EOM present Cognition (Neuro): normal cognition Psych: Appearance: grossly normal Mental Status: mental status grossly no rmal Speech and movement: Normal speech and movement present Affect: normal affect and Anxious affect present Attitude: cooperative Course Reevaluation(s) Reevaluation #1: Patient re-evaluated, she normally feels anxious, she also no longer has burning upper abdominal pain. She feels ready for discharge at this time. Time: 00:48 Medications Administered Discontinued Medications Generic Name Dose Route Start Last Admin Trade Name Serena PRN Reason Stop Dose Admin Al Hydroxide/Mg Hydroxide 30 ml 10/02/22 23:49 10/03/22 00:29 Magnesium Hydrox/Alum Hydrox 30 Ml Oral.Susp PO 10/02/22 23:50 30 ml ONCE ONE Administration Lidocaine HCl 15 ml 10/02/22 23:49 10/03/22 00:29 Lidocaine Hcl Viscous 2 % 15 Ml Solution MUCOUS MEM 10/02/22 23:50 15 ml ONCE ONE Administration Lorazepam 2 mg 10/02/22 23:49 10/03/22 00:29 Lorazepam 1 Mg Tablet PO 10/02/22 23:50 2 mg ONCE ONE Administration Ondansetron HCl 4 mg 10/02/22 23:49 10/03/22 00:29 Ondansetron Odt 4 Mg Tab.Rapdis TRANSLINGU 10/02/22 23:50 4 mg ONCE ONE Administration Medical Decision Making Medical Decision Making [facility] Narrative: 36-year-old female presenting for what she describes as panic attacks. The patient does appear very anxious. She had a cardiac workup that included labs, EKG all of which was reassuring. EKG was sinus rhythm without any ischemic changes or ectopy. Will treat the patient's anxiety with Ativan p.o.. She reports that she is having some heartburn due to the vomiting she has been having throughout the day. This which he with a GI cocktail Differential Diagnosis Anxiety Panic disorder Stress Gastritis Gastroenteritis Chest pain ACS less likely Lab Data [facility] Lab Attestation statement: I reviewed the patient's lab results. 10/02/22 21:15 10/02/22 21:15 Labs: Lab Results 10/02/22 10/02/22 10/02/22 Range/Units 21:15 21:15 21:15 WBC 12.2 H (4.8-10.8) X10*3/uL RBC 5.06 (4.20-5.50) X10*6/uL Hgb 13.0 (12.0-16.0) g/dl Hct 40.4 (37.0-47.0) % MCV 79.8 L (80.0-98.0) fL MCH 25.7 L (27.0-33.0) pg MCHC 32.2 (31.0-35.0) g/dl RDW 14.0 (11.0-16.0) % Plt Count 434 H D (160-400) X10*3/uL MPV 10.5 (9.4-12.3) fL Immature Gran % (Auto) 0.3 (0.0-0.4) % Neut % (Auto) 71.1 (45-73) % Lymph % (Auto) 23.2 (20-40) % [place] % (Auto) 4.7 (2-11) % Eos % (Auto) 0.5 (0-4) % Baso % (Auto) 0.2 (0-2) % Lymph # (Auto) 2.8 (1.2-4.9) X10*3/uL [place] # (Auto) 0.6 (0.1-1.2) X10*3/uL Eos # (Auto) 0.1 (0.0-0.4) X10*3/uL Baso # (Auto) 0.0 (0.0-0.2) X10*3/uL Abs Immat Gran (auto) 0.04 H (0.00-0.03) X10*3/uL Absolute Neuts (auto) 8.7 H (2.0-8.3) x10*3/uL Absolute Nucleated RBC 0.000 (0.0-0.012) X10*3/uL Nucleated RBC % (auto) 0.0 (0.0-0.2) /100WBC Sodium 141 (135-145) mmol/L Potassium 3.6 (3.3-5.1) mmol/L Chloride 106 (96-108) mmol/L Carbon Dioxide 23 (22-29) mmol/L Anion Gap 16 (12-20) BUN 10 (9-16) mg/dL Creatinine 0.72 (0.5-1.4) mg/dL Estim Creat Clear Calc 105.4 Estimated GFR > 60 Random Glucose 86 (60-115) mg/dL Calcium 9.8 (8.4-10.2) mg/dL Troponin I High Sens < 2.7 (<3.5-17.0) ng/L Independent Interpretation I performed an independent interpretation of an: EKG Discharge Plan Discharge Clinical Impression: Anxiety Patient Disposition: Home, Self-Care Instructions: Anxiety (ED) Additional Instructions: Your workup in the emergency department today was reassuring. This includes your blood work, EKG Your symptoms are most likely related to anxiety Continue taking your home medications as prescribed Follow-up with your primary doctor Prescriptions: No Action albuterol sulfate [ProAir HFA] 90 mcg/actuation HFA aerosol inhaler 1 puff inhalation QID PRN (Reason: shortness of breath or wheezing) Qty: 6.7 0RF acetaminophen [Athenol] 325 mg tablet 325 mg PO QID PRN (Reason: fever or pain) Qty: 30 0RF ondansetron 4 mg tablet,disintegrating 4 mg PO Q8H PRN (Reason: nausea and vomiting) Qty: 12 0RF ibuprofen 600 mg tablet 600 mg PO Q8H PRN (Reason: pain) Qty: 20 0RF prochlorperazine [Compazine] 25 mg suppository 25 mg RI BID PRN (Reason: nausea and vomiting) Qty: 10 0RF Stand Alone Forms: Work/School Release
[2022-10-03 00:05] VITALS: BP 106/66; PULSE 69; RESP 12; O2SAT 98
[2022-10-03] MEDS: LORazepam 1 MG TABLET 2 MG PO (00:29)
[2022-10-03] MEDS: Magnesium Hydrox/Alum Hydrox 30 ML ORAL.SUSP PO (00:29)
[2022-10-03] MEDS: Lidocaine HCl Viscous 2 % 15 ML SOLUTION MUCOUS MEM (00:29)
[2022-10-03] MEDS: Ondansetron ODT 4 MG TAB.RAPDIS TRANSLINGU (00:29)
--- NOTE | 2022-10-03 00:32 | PC.NURSE ---
pt changed into hospial attire, placed on bedside monitor, medicated per mar, Will continue to monitor.
--- NOTE | 2022-10-03 01:04 | PC.NURSE ---
Reviewed discharge instructions with pt, pt verbalized understanding,
== END 2022-10-03 01:11 | disposition home or self-care (01) ==
PROVIDERS: Emergency Provider Emergency Medicine
DX: F41.9 Anxiety disorder, unspecified (principal)
CPT/HCPCS: 36415; 80048; 84484; 85025; 93005; 99284; 99285

== ENCOUNTER 2023-06-05 12:17 | Outpatient (REF) | payer MEDICAID, SELFPAY ==
[2023-06-05 13:54] LABS: HCG Quantitative < 2 mIU/mL
== END 2023-06-05 12:18 | disposition home or self-care (01) ==
LOC: HO.HHCL 12:17
PROVIDERS: Visit Provider Emergency Medicine
DX: R11.2 Nausea with vomiting, unspecified (principal)
CPT/HCPCS: 36415; 84702

== ENCOUNTER 2023-06-06 12:03 | Outpatient (REF) | payer MEDICAID, SELFPAY | END 2023-06-06 12:04 | disposition home or self-care (01) | LOC: HO.HHCLNP 12:03 | PROVIDERS: Visit Provider Emergency Medicine | DX: R10.13 Epigastric pain (principal) | CPT/HCPCS: 87338 ==

== ENCOUNTER 2023-06-19 12:52 | Inpatient (IN) | payer MEDICAID, OTHER, SELFPAY ==
--- NOTE | 2023-06-19 13:31 | ED.ANXIETY ---
HPI - Anxiety General Chief Complaint: Anxiety Stated Complaint: Panic Attack Time Seen by Provider: 06/19/23 23:20 Source: patient and family Mode of arrival: ambulatory Limitations: no limitations History of Present Illness HPI narrative: 37-year-old female history of anxiety that has been hospitalized in the past at [place] patient takes sertraline and hydroxyzine to control her anxiety patient feels more anxious than her usual is crying, feel SI but no HI, no visual or auditory hallucination. Patient is getting chest tightness. Patient is tearful during the interview, cannot stop the thought racing in her head Related Data Previous Rx's Medication Instructions Recorded acetaminophen 325 mg tablet 325 mg PO QID PRN fever or pain 06/14/21 (Athenol) #30 tabs albuterol sulfate 90 mcg/actuation 1 puff inhalation QID PRN 06/14/21 aerosol inhaler (ProAir HFA) shortness of breath or wheezing #6.7 grams ondansetron 4 mg disintegrating 4 mg PO Q8H PRN nausea and 08/30/21 tablet vomiting #12 tabs ibuprofen 600 mg tablet 600 mg PO Q8H PRN pain #20 tabs 04/04/22 prochlorperazine 25 mg rectal 25 mg PA BID PRN nausea and 07/12/22 suppository (Compazine) vomiting #10 ea Allergies Allergy/AdvReac Type Severity Reaction Status Date / Time Penicillins Allergy Severe Anaphylaxis Verified 06/14/21 06:59 almond Allergy Anaphylaxis Verified 06/19/23 13:36 shrimp Allergy Anaphylaxis Verified 06/19/23 13:36 Review of Systems Review of Systems: All other systems are reviewed and are negative Constitutional: Reports as per HPI and Reports no additional constitutional complaints Eyes: Reports as per HPI and Reports no additional eye complaints Reports system reviewed and no additional complaints, except as documented Cardiovascular: Reports as per HPI and Reports no additional cardiovascular complaints Respiratory: Reports as per HPI and Reports no additional respiratory complaints Gastrointestinal: Reports as per HPI and Reports no additional gastrointestinal complaints Genitourinary: Reports no additional female genitourinary complaints Musculoskeletal: Reports no additional musculoskeletal complaints Skin/Breast: Reports system reviewed and no additional complaints, except as docu Psychiatric: Reports no additional psychiatric complaints Endocrine: Reports no additional endocrine complaints Hematologic/Lymphatic: Reports no additional hematologic/lymphatic complaints Allergic/Immunologic: Reports no additional allergic/immunologic complaints Reports system reviewed and no additional complaints, except as documented and Reports Abnormal speech present [facility] Past Medical History Onset Date is defined in the Problem List Problems that require an onset date and time if occurred within 24 hrs of arrival to the ED Aortic Dissection and Rupture; Neurologic impairment; Cardiopulmonary Arrest; Endotracheal Intubation; Insertion or Replacement of Mechanical Circulatory Assist Device Medical History Asthma exacerbation Social History Social History Alcohol intake: former Smoked in Last 30 Days: No Use of substances other than those prescribed or required for medical reasons: Yes Substance Use Type: Marijuana Substance Use Frequency: Daily Advance Directives: No Advance Directives Information Provided: Yes Physical Exam Vital Signs: Vital Signs: Last Vital Signs Temp 98.3 F 06/20/23 00:18 Pulse 63 06/20/23 06:19 Resp 14 06/20/23 06:19 BP 116/60 06/20/23 06:19 Pulse Ox 97 06/20/23 06:19 O2 Del Method Room Air 06/20/23 06:19 BMI result Body Mass Index 25.7 Vital signs have been reviewed and appear to be correct. Blood pressure elevated. Heart rate normal. Respiratory rate normal. Temperature normal. Oxygen saturation normal. Appearance: Alert. Oriented X3. No acute distress. Tearful during the exam Head: Normal external exam. Normocephalic. Atraumatic. No Nice signs noted. No raccoon eyes noted Eyes: PERRLA. EOMI. Conjunctiva and sclera normal. Eyelids normal. ENT: TM's Normal. Pharynx normal. Uvula midline. Moist mucous membranes. No trismus noted. No drooling noted. No muffled voice noted. Neck: Normal inspection. Neck supple. FROM. No adenopathy. Thyroid Normal. No meningeal signs. No neck mass noted. CVS: Normal heart rate and rhythm. Heart sound normal. No murmurs noted. Pulses normal throughout. Respiratory: No respiratory distress. Painless inspiration. Breath sounds normal. No wheezes/rales/rhonchi noted. Chest nontender. No accessory muscle usage noted or decreased air movement noted. Abdomen: Soft and nontender. Bowel sounds normal in all 4 quadrants. No distention noted. No organomegaly noted. No visible injury noted. Back: No CVA tenderness. Full range of motion noted. Skin: Skin warm and dry. Normal skin color. Normal skin turgor. No rashes/lesions/lacerations noted. Extremities: No lower extremity edema. Extremities exhibit normal range of motion. Extremities nontender. Neuro: Oriented X 3. Cranial nerve exam: II-XII are grossly intact No motor deficit. No sensory deficit. Reflexes normal. Patient Orientation: Person, Place, Time and Situation, okay hygiene and grooming. Fair eye contact, attentive, no tics or tremors. Level of Consciousness: Awake, Appropriate and Alert Patient Behavior: Appropriate, Guarded, Cooperative and Anxious Mood Description: Constricted, Blunted and Apprehensive Affect Description: Constricted, Blunted and Apprehensive Patient Cognition Impaired: No Ability to Follow Directions: Excellent Speech Pattern: Clear, Appropriate and Spontaneous Speech, nonpressured, spontaneous with regular rate and rhythm, normal volume and prosody. No dysarthria. Memory Description: Intact, Immediate Intact and Short Term Intact Hallucinations: None Delusions: Not Present Thought Process: Intact Thought Content: positive for Intact, positive for Logical, denies Homicidal Ideation, admit to suicidal ideation with no plan Depressive Symptoms: Not present. Judgement and Insight: Limited but adequate. Course Course Course Narrative: RME: 37 yo F w/PMHx anxiety presenting to the ED c/o increasing panic attacks x few days. takes Hydroxyzine at home w/o relief, admits to taking 1 extra dose yesterday. admits to assoc chest tightness &abdominal discomfort, N/V. +THC use denies other drugs or ETOH tearful, anxious, crying SL Zofran given in triage Full HPI, ROS and PE to be performed by primary ED provider. Reevaluation(s) Reevaluation #1: Known to have anxiety attacks, came in for panic attack with SI patient only admit to smoking marijuana but no other drug abuse or alcohol abuse, will administer Ativan to calm the patient down, will get care team evaluation. Time: 23:38 Reevaluation #2: 37-year-old female who is evaluated by the care team and due to significant anxiety and suicidality as per the care team patient is inpatient bed search and will be transferred into the pot at this time. Time: 09:53 Medications Administered Generic Name Dose Route Start Last Admin Trade Name Serena PRN Reason Stop Dose Admin Nitrofurantoin Macrocrystals 100 mg 06/20/23 01:00 06/20/23 09:10 Nitrofurantoin Monohyd/M-Cryst 100 Mg Capsule PO 100 mg BID SERENA Administration Discontinued Medications Generic Name Dose Route Start Last Admin Trade Name Serena PRN Reason Stop Dose Admin Acetaminophen 650 mg 06/20/23 00:02 06/20/23 00:08 Acetaminophen 325 Mg Tablet PO 06/20/23 00:03 650 mg ONCE ONE Administration Diphenhydramine HCl 50 mg 06/19/23 23:30 06/20/23 00:08 Diphenhydramine Hcl 25 Mg Capsule PO 06/19/23 23:31 50 mg ONCE ONE Administration Lorazepam 2 mg 06/19/23 23:30 06/20/23 00:09 Lorazepam 1 Mg Tablet PO 06/19/23 23:31 2 mg ONCE ONE Administration Ondansetron HCl 4 mg 06/19/23 13:35 06/19/23 13:38 Ondansetron Odt 4 Mg Tab.Rapdis TRANSLINGU 06/19/23 13:36 4 mg ONCE ONE Administration Medical Decision Making Differential Diagnosis Differential Diagnoses: The differential diagnosis associated with the presentation includes (Anxiety, depression, ACS, electrolyte abnormality, severe anemia.) Admission/Observation Consideration of admission/observation: Escalation of care including admission/observation considered Lab Data MDM Lab Attestation statement: I reviewed the patient's lab results. 06/20/23 00:33 06/20/23 00:33 Labs: Lab Results 06/20/23 Range/Units 00:33 WBC 12.5 H (4.8-10.8) X10*3/uL RBC 4.77 (4.20-5.50) X10*6/uL Hgb 12.2 (12.0-16.0) g/dl Hct 37.1 (37.0-47.0) % MCV 77.8 L (80.0-98.0) fL MCH 25.6 L (27.0-33.0) pg MCHC 32.9 (31.0-35.0) g/dl RDW 13.6 (11.0-16.0) % Plt Count 361 (160-400) X10*3/uL MPV 10.0 (9.4-12.3) fL Immature Gran % (Auto) 0.4 (0.0-0.4) % Neut % (Auto) 63.9 (45-73) % Lymph % (Auto) 28.4 (20-40) % Rich % (Auto) 6.0 (2-11) % Eos % (Auto) 1.0 (0-4) % Baso % (Auto) 0.3 (0-2) % Lymph # (Auto) 3.6 (1.2-4.9) X10*3/uL Rich # (Auto) 0.8 (0.1-1.2) X10*3/uL Eos # (Auto) 0.1 (0.0-0.4) X10*3/uL Baso # (Auto) 0.0 (0.0-0.2) X10*3/uL Abs Immat Gran (auto) 0.05 H (0.00-0.03) X10*3/uL Absolute Neuts (auto) 8.0 (2.0-8.3) x10*3/uL Absolute Nucleated RBC 0.000 (0.0-0.012) X10*3/uL Nucleated RBC % (auto) 0.0 (0.0-0.2) /100WBC Smear Tech's Comments VERIFIED Sodium 140 (135-145) mmol/L Potassium 3.2 L (3.3-5.1) mmol/L Chloride 105 (96-108) mmol/L Carbon Dioxide 27 (22-29) mmol/L Anion Gap 11 L (12-20) BUN 13 (9-16) mg/dL Creatinine 0.76 (0.5-1.4) mg/dL Estim Creat Clear Calc 106.9 Estimated GFR > 60 Random Glucose 101 (60-115) mg/dL Calcium 9.2 D (8.4-10.2) mg/dL Troponin I High Sens < 2.7 (<3.5-17.0) ng/L Lipase 23 (8-78) U/L Urine Color Dark Yellow Urine Appearance Turbid Urine pH 6.0 (5.0-9.0) Ur Specific [place] >= 1.030 H (1.005-1.025) Urine Protein 30 (1+) H (Neg-Trace) mg/dL Urine Glucose (UA) Negative (Negative) mg/dL Urine Ketones 40 (Negative) mg/dL Urine Blood Large (3+) H (Negative) Urine Nitrite Negative (Negative) Ur Leukocyte Esterase Moderate (2+) H (Negative) Urine RBC 11-20 H (0-2) /HPF Urine WBC 21-50 H (0-5) /HPF Ur Squamous Epith Cells >20 (0-2) /HPF Urine Bacteria 4+ (None Seen) Hyaline Casts 0-2 (0-2) /LPF Urine Test NEGATIVE (NEGATIVE) Urine Opiates Screen Not Detected (Not Detect) Urine Fentanyl Screen Not Detected (Not Detect) Ur Barbiturates Screen Not Detected (Not Detect) Ur Phencyclidine Scrn Not Detected (Not Detect) Ur Amphetamines Screen Not Detected (Not Detect) U Benzodiazepines Scrn Not Detected (Not Detect) Urine Cocaine Screen POSITIVE H (Not Detect) U Marijuana (THC) Screen POSITIVE H (Not Detect) Ethyl Alcohol < 10 mg/dL Discharge Plan Discharge Clinical Impression: Acute anxiety, UTI (urinary tract infection), Substance abuse Patient Disposition: Still a Patient Prescriptions: No Action albuterol sulfate [ProAir HFA] 90 mcg/actuation HFA aerosol inhaler 1 puff inhalation QID PRN (Reason: shortness of breath or wheezing) Qty: 6.7 0RF acetaminophen [Athenol] 325 mg tablet 325 mg PO QID PRN (Reason: fever or pain) Qty: 30 0RF ondansetron 4 mg tablet,disintegrating 4 mg PO Q8H PRN (Reason: nausea and vomiting) Qty: 12 0RF ibuprofen 600 mg tablet 600 mg PO Q8H PRN (Reason: pain) Qty: 20 0RF prochlorperazine [Compazine] 25 mg suppository 25 mg PA BID PRN (Reason: nausea and vomiting) Qty: 10 0RF
[2023-06-19 13:33] VITALS: BP 122/89; PULSE 96; RESP 22; TEMP 36.7; O2SAT 98; BMI 25.7
[2023-06-20 00:18] VITALS: BP 112/65; PULSE 75; RESP 12; TEMP 36.8; O2SAT 98
--- NOTE | 2023-06-20 00:28 | PC.NURSE ---
Patient is a 37 years old female presenting to ED for evaluation of worsening anxiety, chest tightness, headache, poor PO tolerance d/t nausea and diarrhea. Patient takes Sertraline and Hydroxyzine to control anxiety, patient endorses intermittent visual and auditory hallucinations, denies SI/HI at present. EKG completed and labs drawn by education technician. Patient placed on lunchroom monitor HR 78-80, normal sinus rhythm. Patient medicated per AUG, call zhao within patient's reach. 1:1 sitter at bedside.
[2023-06-20 00:41] LABS: Basophils Percent Auto 0.3 % (0-2); Eosinophils Absolute Auto 0.1 X10*3/uL (0.0-0.4); Hematocrit 37.1 % (37.0-47.0); Hemoglobin 12.2 g/dl (12.0-16.0); Imm Gran Abs Auto 0.05 X10*3/uL (0.00-0.03); Imm Gran Pct Auto 0.4 % (0.0-0.4); Lymphocytes Absolute Auto 3.6 X10*3/uL (1.2-4.9); Lymphocytes Percent Auto 28.4 % (20-40); MANUAL DIFF FLAG SCAN; Mean Corpuscular HGB Conc 32.9 g/dl (31.0-35.0); Mean Corpuscular Hemoglobin 25.6 pg (27.0-33.0); Mean Corpuscular Volume 77.8 fL (80.0-98.0); Monocytes Absolute Auto 0.8 X10*3/uL (0.1-1.2); Neutrophils Percent Auto 63.9 % (45-73); Platelet Count 361 X10*3/uL (160-400); Red Blood Count 4.77 X10*6/uL (4.20-5.50); Red Cell Distribution Width 13.6 % (11.0-16.0); SCAN SMEAR FLAG 1; White Blood Count 12.5 X10*3/uL (4.8-10.8)
[2023-06-20 00:43] LABS: Appearance Urine Turbid; Color Urine Dark Yellow; Glucose Urine UA Negative (Negative); Leukocyte Esterase Urine Moderate (2+) (Negative); Nitrite Urine Negative (Negative); Specific Gravity - Urine >= 1.030 (1.005-1.025); UMIC TRIGGER UACC YES; Urine Blood Large (3+) (Negative); Urine Ketones 40 mg/dL (Negative); Urine Protein 30 (1+) mg/dL (Neg-Trace)
[2023-06-20 00:44] LABS: UPreg QC Valid YES; Urine Pregnancy NEGATIVE (NEGATIVE)
[2023-06-20 00:47] LABS: Bacteria Urine 4+ (None Seen); Hyaline Casts Urine 0-2 /LPF (0-2); Squamous Epithelial Cell Urine >20 /HPF (0-2); UACC Culture Trigger YES; WBC Urine 21-50 /HPF (0-5)
[2023-06-20 00:50] LABS: Amphetamine Screen Urine Not Detected (Not Detect); Barbiturates, Urine Not Detected (Not Detect); Benzodiazepines Screen Urine Not Detected (Not Detect); Cannabinoid Screen Urine POSITIVE (Not Detect); Cocaine Screen Urine POSITIVE (Not Detect); Fentanyl, urine Not Detected (Not Detect); Opiate Screen Urine Not Detected (Not Detect); Phencyclidine Screen Urine Not Detected (Not Detect)
[2023-06-20 00:54] LABS: Anion Gap 11 (12-20); Blood Urea Nitrogen 13 mg/dL (9-16); Calcium 9.2 mg/dL (8.4-10.2); Carbon Dioxide 27 mmol/L (22-29); Chloride 105 mmol/L (96-108); Creatinine Clr Calc Pharmacy 106.9; Estimated Glomerular Filt Rate > 60; Glucose Random 101 mg/dL (60-115); Lipase 23 U/L (8-78); Potassium 3.2 mmol/L (3.3-5.1); Sodium 140 mmol/L (135-145)
[2023-06-20 00:55] LABS: Ethanol < 10 mg/dL
[2023-06-20 01:08] LABS: Troponin-I High Sensitivity < 2.7 ng/L (<3.5-17.0)
[2023-06-20 01:10] LABS: SLIDE REVIEW VERIFIED
[2023-06-20 02:12] VITALS: BP 126/62; PULSE 82; RESP 16; TEMP 37.1; O2SAT 99
[2023-06-20 02:32] VITALS: PULSE 68; RESP 16; O2SAT 96
[2023-06-20 04:10] VITALS: PULSE 68; RESP 16; O2SAT 98
[2023-06-20 06:19] VITALS: BP 116/60; PULSE 63; RESP 14; O2SAT 97
--- NOTE | 2023-06-20 09:59 | PHA.MEDREC ---
Pharmacy Consult ? Medication Reconciliation Pharmacy has completed the medication reconciliation. Spoke to patient at bedside, she was able to name hydroxyzine and sertraline, agreeable to other listed meds from claim history. Did state that she no longer takes clonazepam.
--- NOTE | 2023-06-20 15:46 | PC.NURSE ---
pt arrived on the unit at 1407 on a CV via wheelchair. Skin check performed, vitals taken and wnl. Pt placed on 15min checks for safety. Admission to be complete.
[2023-06-20 17:03] VITALS: BP 116/59; PULSE 78; TEMP 36.8; O2SAT 97
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
[2023-06-21 09:21] VITALS: BP 116/60; PULSE 75; TEMP 36.9; O2SAT 98
[2023-06-21 09:27] LABS: Alanine Aminotransferase 17 U/L (0-31); Albumin Level 4.5 g/dL (3.5-5.0); Alkaline Phosphatase 92 U/L (39-117); Anion Gap 13 (12-20); Aspartate Amino Transferase 20 U/L (5-31); Bilirubin Total 0.7 mg/dL (0.0-1.0); Blood Urea Nitrogen 13 mg/dL (9-16); Calcium 9.7 mg/dL (8.4-10.2); Carbon Dioxide 27 mmol/L (22-29); Chloride 105 mmol/L (96-108); Cholesterol 121 mg/dL (<200); Creatinine Clr Calc Pharmacy 99.1; Estimated Glomerular Filt Rate > 60; Glucose Random 101 mg/dL (60-115); HDL Cholesterol 31 mg/dL (>40); LDL Cholesterol Calculated 68 mg/dL (<100); Magnesium 2.4 mg/dL (1.6-2.6); Potassium 3.9 mmol/L (3.3-5.1); Sodium 141 mmol/L (135-145); Total Protein 8.3 g/dL (6.5-8.0); Triglycerides 111 mg/dL (<150)
[2023-06-21 09:41] LABS: Free T4 (Free Thyroxine) 1.22 ng/dL (0.71-1.85); Thyroid Stimulating Hormone 0.65 uIU/mL (0.32-4.0)
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
[2023-06-21 18:00] VITALS: BP 124/70; PULSE 93; RESP 16; TEMP 36.5; O2SAT 99
--- NOTE | 2023-06-21 19:46 | PC.NURSE ---
Assumed care of this pt at 19:00. PT visibly anxious and pacing, pt report she is having a difficult time due to the intensity of the milieu at this time as several patients have had outbursts. PT requested evening medications and withdrew to her room where she feels safest. Plan of care ongoing.
[2023-06-22 08:10] VITALS: BP 119/56; PULSE 64; RESP 18; TEMP 36.6; O2SAT 98
[2023-06-22] MEDS: Ibuprofen 400 MG TABLET PO (14:23)
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
[2023-06-22 18:00] VITALS: BP 112/55; PULSE 95; O2SAT 99
[2023-06-23 08:30] VITALS: BP 114/56; PULSE 85; RESP 18; TEMP 36.7; O2SAT 99
[2023-06-23] MEDS: Throat Lozenge, Medicated LOZENGE 1 LOZENGE MUCOUS MEM (10:28)
[2023-06-23 18:00] VITALS: BP 117/54; PULSE 80; RESP 18; TEMP 36.7; O2SAT 99
[2023-06-24 08:20] VITALS: BP 114/68; PULSE 109; RESP 18; TEMP 37.1; O2SAT 98
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
[2023-06-24 15:45] VITALS: BP 118/59; PULSE 102; RESP 16; TEMP 37.1; O2SAT 97
[2023-06-24] MEDS: hydrOXYzine HCL 50 MG TABLET PO (17:26)
[2023-06-24] MEDS: risperiDONE 1 MG TABLET PO (17:26)
[2023-06-24] MEDS: Benztropine Mesylate 0.5 MG TABLET PO (20:13)
[2023-06-24] MEDS: Prazosin HCL 1 MG CAPSULE 2 MG PO (20:13)
[2023-06-24] MEDS: QUEtiapine Fumarate 25 MG TABLET PO (20:14)
[2023-06-24] MEDS: Nitrofurantoin Monohyd/M-Cryst 100 MG CAPSULE PO (20:14)
[2023-06-24] MEDS: traZODone HCL 50 MG TABLET PO (20:14)
[2023-06-24] MEDS: QUEtiapine Fumarate 50 MG TABLET PO (20:14)
[2023-06-25 06:00] VITALS: BP 140/77; PULSE 123; RESP 18; TEMP 36.6; O2SAT 99
[2023-06-25] MEDS: Sertraline HCL 25 MG TABLET 75 MG PO (08:05)
[2023-06-25] MEDS: Multivitamin TABLET 1 TAB PO (08:05)
[2023-06-25] MEDS: Nitrofurantoin Monohyd/M-Cryst 100 MG CAPSULE PO ×3 (08:05→19:36)
[2023-06-25] MEDS: Benztropine Mesylate 0.5 MG TABLET PO ×3 (08:05→19:36)
[2023-06-25] MEDS: QUEtiapine Fumarate 25 MG TABLET PO ×3 (08:05→19:31)
[2023-06-25] MEDS: LORazepam 1 MG TABLET PO ×4 (08:12→21:36)
[2023-06-25] MEDS: Throat Lozenge, Medicated LOZENGE 1 LOZENGE MUCOUS MEM (08:14)
[2023-06-25] MEDS: Acetaminophen 325 MG TABLET 650 MG PO (09:54)
[2023-06-25 12:36] VITALS: BP 117/64; PULSE 124
[2023-06-25] MEDS: cloNIDine HCL 0.1 MG TABLET PO (12:37)
[2023-06-25] MEDS: Magnesium Hydrox/Alum Hydrox 30 ML ORAL.SUSP PO (14:45)
[2023-06-25 16:20] VITALS: BP 110/59; PULSE 92; RESP 16; TEMP 36.7; O2SAT 98
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
[2023-06-25] MEDS: hydrOXYzine HCL 50 MG TABLET PO (17:14)
[2023-06-25 19:30] VITALS: BP 117/59; PULSE 99
[2023-06-25] MEDS: traZODone HCL 50 MG TABLET PO ×2 (19:31→21:36)
[2023-06-25] MEDS: risperiDONE 2 MG TABLET PO ×2 (19:32→19:35)
[2023-06-25] MEDS: Prazosin HCL 1 MG CAPSULE 2 MG PO (19:32)
[2023-06-25] MEDS: Dry Mouth Spray 60 ML SPRAY 1 SPRAY MUCOUS MEM (19:41)
[2023-06-25] MEDS: Clindamycin HCL 300 MG CAPSULE PO (20:17)
[2023-06-26] MEDS: Omeprazole 20 MG CAPSULE.DR PO ×2 (06:16→16:00)
[2023-06-26] MEDS: Benztropine Mesylate 0.5 MG TABLET PO ×2 (08:19→19:47)
[2023-06-26] MEDS: Sertraline HCL 25 MG TABLET 75 MG PO (08:19)
[2023-06-26] MEDS: Clindamycin HCL 300 MG CAPSULE PO ×2 (08:19→19:47)
[2023-06-26] MEDS: Nitrofurantoin Monohyd/M-Cryst 100 MG CAPSULE PO ×2 (08:19→19:47)
[2023-06-26] MEDS: Multivitamin TABLET 1 TAB PO (08:19)
[2023-06-26] MEDS: Phenazopyridine HCL 100 MG TABLET PO ×2 (08:19→19:00)
[2023-06-26] MEDS: QUEtiapine Fumarate 25 MG TABLET PO ×3 (08:19→19:47)
[2023-06-26] MEDS: cloNIDine HCL 0.1 MG TABLET PO (08:20)
[2023-06-26] MEDS: Ibuprofen 400 MG TABLET PO (08:23)
[2023-06-26 08:25] VITALS: BP 125/64; PULSE 133; RESP 18; TEMP 36.5; O2SAT 98
[2023-06-26] MEDS: LORazepam 1 MG TABLET PO ×2 (09:31→16:01)
[2023-06-26] MEDS: Magnesium Hydrox/Alum Hydrox 30 ML ORAL.SUSP PO (11:03)
[2023-06-26] MEDS: hydrOXYzine HCL 50 MG TABLET PO (11:03)
[2023-06-26] MEDS: QUEtiapine Fumarate 50 MG TABLET PO (12:23)
[2023-06-26] MEDS: Gabapentin 100 MG CAPSULE 200 MG PO (14:12)
[2023-06-26] MEDS: Milk of Magnesia 30 ML ORAL.SUSP PO (15:09)
[2023-06-26] MEDS: risperiDONE 1 MG TABLET PO ×2 (16:01→20:29)
[2023-06-26 16:50] VITALS: BP 114/63; PULSE 91; RESP 16; TEMP 36.8; O2SAT 96
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
[2023-06-26 19:45] VITALS: BP 116/61; PULSE 97
[2023-06-26] MEDS: Docusate Sodium 100 MG CAPSULE PO (19:47)
[2023-06-26] MEDS: traZODone HCL 50 MG TABLET PO ×2 (19:47→20:30)
[2023-06-26] MEDS: Prazosin HCL 1 MG CAPSULE 2 MG PO (19:47)
[2023-06-26] MEDS: risperiDONE 2 MG TABLET PO (19:47)
[2023-06-26] MEDS: Acetaminophen 325 MG TABLET 650 MG PO (20:29)
[2023-06-27] MEDS: Omeprazole 20 MG CAPSULE.DR PO ×2 (05:48→16:41)
[2023-06-27 08:20] VITALS: BP 127/66; PULSE 100; RESP 18; TEMP 36.9; O2SAT 99
[2023-06-27] MEDS: Sertraline HCL 25 MG TABLET 75 MG PO (08:26)
[2023-06-27] MEDS: Benztropine Mesylate 0.5 MG TABLET PO ×2 (08:27→19:38)
[2023-06-27] MEDS: Multivitamin TABLET 1 TAB PO (08:27)
[2023-06-27] MEDS: QUEtiapine Fumarate 25 MG TABLET PO ×3 (08:27→19:39)
[2023-06-27] MEDS: Clindamycin HCL 300 MG CAPSULE PO ×2 (08:27→19:40)
[2023-06-27] MEDS: Phenazopyridine HCL 100 MG TABLET PO ×2 (08:27→16:42)
[2023-06-27] MEDS: Docusate Sodium 100 MG CAPSULE PO ×2 (08:27→19:40)
[2023-06-27] MEDS: Nitrofurantoin Monohyd/M-Cryst 100 MG CAPSULE PO ×2 (08:27→19:40)
[2023-06-27] MEDS: Gabapentin 100 MG CAPSULE 200 MG PO ×2 (08:27→14:55)
[2023-06-27] MEDS: polyethylene glycoL 3350 17 GM POWD.PACK PO (09:53)
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
[2023-06-27] MEDS: Dry Mouth Spray 60 ML SPRAY 1 SPRAY MUCOUS MEM (10:54)
[2023-06-27] MEDS: LORazepam 1 MG TABLET PO ×2 (10:55→16:43)
[2023-06-27 11:53] VITALS: BMI 26.8
[2023-06-27] MEDS: bisacodyL 5 MG TABLET.DR 10 MG PO (12:49)
[2023-06-27] MEDS: hydrOXYzine HCL 50 MG TABLET PO (12:54)
[2023-06-27] MEDS: risperiDONE 1 MG TABLET PO (16:41)
[2023-06-27] MEDS: Acetaminophen 325 MG TABLET 650 MG PO (16:41)
[2023-06-27 19:35] VITALS: BP 121/87; PULSE 99; TEMP 36.6
[2023-06-27] MEDS: traZODone HCL 100 MG TABLET PO (19:38)
[2023-06-27] MEDS: risperiDONE 2 MG TABLET PO (19:39)
[2023-06-27] MEDS: Prazosin HCL 1 MG CAPSULE 2 MG PO (19:40)
[2023-06-28] MEDS: Omeprazole 20 MG CAPSULE.DR PO ×2 (06:07→15:39)
[2023-06-28] MEDS: Nitrofurantoin Monohyd/M-Cryst 100 MG CAPSULE PO ×2 (08:10→19:46)
[2023-06-28] MEDS: Benztropine Mesylate 0.5 MG TABLET PO ×2 (08:10→19:44)
[2023-06-28] MEDS: Clindamycin HCL 300 MG CAPSULE PO ×2 (08:11→19:46)
[2023-06-28] MEDS: Multivitamin TABLET 1 TAB PO (08:11)
[2023-06-28] MEDS: QUEtiapine Fumarate 25 MG TABLET PO ×3 (08:11→19:46)
[2023-06-28] MEDS: Sertraline HCL 25 MG TABLET 75 MG PO (08:11)
[2023-06-28] MEDS: Gabapentin 100 MG CAPSULE 200 MG PO ×2 (08:11→14:09)
[2023-06-28] MEDS: Docusate Sodium 100 MG CAPSULE PO ×2 (08:11→19:45)
[2023-06-28 08:25] VITALS: BP 145/82; PULSE 86; RESP 16; TEMP 36.6; O2SAT 100
[2023-06-28] MEDS: polyethylene glycoL 3350 17 GM POWD.PACK PO (08:33)
[2023-06-28] MEDS: Acetaminophen 325 MG TABLET 650 MG PO (09:53)
[2023-06-28] MEDS: LORazepam 1 MG TABLET PO ×2 (09:53→15:39)
[2023-06-28] MEDS: Dry Mouth Spray 60 ML SPRAY 1 SPRAY MUCOUS MEM (10:40)
[2023-06-28] MEDS: hydrOXYzine HCL 50 MG TABLET PO (10:41)
[2023-06-28] MEDS: risperiDONE 1 MG TABLET PO (13:14)
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
[2023-06-28 18:00] VITALS: BP 123/79; PULSE 85; RESP 17; TEMP 36.9; O2SAT 97
[2023-06-28] MEDS: Prazosin HCL 1 MG CAPSULE 3 MG PO (19:45)
[2023-06-28] MEDS: risperiDONE 2 MG TABLET PO (19:46)
[2023-06-28] MEDS: traZODone HCL 100 MG TABLET PO (19:46)
[2023-06-28] MEDS: Cocoa Butter/Zinc Oxide SUPP.RECT 1 SUPP PR (19:50)
[2023-06-29] MEDS: Omeprazole 20 MG CAPSULE.DR PO ×2 (06:41→16:10)
[2023-06-29] MEDS: Benztropine Mesylate 0.5 MG TABLET PO ×2 (08:09→19:38)
[2023-06-29] MEDS: Gabapentin 100 MG CAPSULE 200 MG PO ×2 (08:10→14:18)
[2023-06-29] MEDS: QUEtiapine Fumarate 25 MG TABLET PO ×3 (08:10→19:38)
[2023-06-29] MEDS: Sertraline HCL 25 MG TABLET 75 MG PO (08:10)
[2023-06-29] MEDS: Multivitamin TABLET 1 TAB PO (08:10)
[2023-06-29] MEDS: Docusate Sodium 100 MG CAPSULE PO ×2 (08:10→19:38)
[2023-06-29] MEDS: Clindamycin HCL 300 MG CAPSULE PO ×2 (08:13→19:38)
[2023-06-29] MEDS: Acetaminophen 325 MG TABLET 650 MG PO ×2 (08:42→16:10)
[2023-06-29] MEDS: Nitrofurantoin Monohyd/M-Cryst 100 MG CAPSULE PO ×2 (08:42→19:38)
[2023-06-29] MEDS: Magnesium Hydrox/Alum Hydrox 30 ML ORAL.SUSP PO (08:42)
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
[2023-06-29] MEDS: polyethylene glycoL 3350 17 GM POWD.PACK PO (09:49)
[2023-06-29] MEDS: LORazepam 1 MG TABLET PO ×2 (10:26→16:10)
[2023-06-29] MEDS: hydrOXYzine HCL 50 MG TABLET PO ×2 (10:26→20:42)
[2023-06-29 11:42] VITALS: BP 119/67; PULSE 95; RESP 18; TEMP 36.4; O2SAT 98
[2023-06-29] MEDS: risperiDONE 1 MG TABLET PO (12:33)
[2023-06-29] MEDS: Ibuprofen 400 MG TABLET PO (12:33)
[2023-06-29 18:00] VITALS: BP 119/67; PULSE 97; RESP 16; TEMP 36.9; O2SAT 98
[2023-06-29] MEDS: Prazosin HCL 1 MG CAPSULE 3 MG PO (19:37)
[2023-06-29] MEDS: traZODone HCL 100 MG TABLET PO (19:38)
[2023-06-29] MEDS: Cocoa Butter/Zinc Oxide SUPP.RECT 1 SUPP PR (19:38)
[2023-06-29] MEDS: risperiDONE 2 MG TABLET PO (19:38)
[2023-06-30] MEDS: Omeprazole 20 MG CAPSULE.DR PO ×2 (06:44→16:22)
[2023-06-30] MEDS: Sertraline HCL 25 MG TABLET 75 MG PO (07:58)
[2023-06-30] MEDS: Clindamycin HCL 300 MG CAPSULE PO ×2 (07:59→18:57)
[2023-06-30] MEDS: Docusate Sodium 100 MG CAPSULE PO ×2 (07:59→19:49)
[2023-06-30] MEDS: QUEtiapine Fumarate 25 MG TABLET PO ×3 (07:59→19:48)
[2023-06-30] MEDS: Multivitamin TABLET 1 TAB PO (07:59)
[2023-06-30] MEDS: Gabapentin 100 MG CAPSULE 200 MG PO ×2 (07:59→14:15)
[2023-06-30] MEDS: Benztropine Mesylate 0.5 MG TABLET PO ×2 (07:59→19:48)
[2023-06-30 08:15] VITALS: BP 127/61; PULSE 104; RESP 18; TEMP 36.6; O2SAT 98
[2023-06-30] MEDS: polyethylene glycoL 3350 17 GM POWD.PACK PO (09:19)
[2023-06-30] MEDS: LORazepam 1 MG TABLET PO ×2 (09:19→13:24)
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
[2023-06-30] MEDS: hydrOXYzine HCL 50 MG TABLET PO (10:18)
[2023-06-30] MEDS: Ibuprofen 400 MG TABLET PO ×2 (12:46→18:57)
[2023-06-30] MEDS: Acetaminophen 325 MG TABLET 650 MG PO ×2 (13:24→18:57)
[2023-06-30] MEDS: Dry Mouth Spray 60 ML SPRAY 1 SPRAY MUCOUS MEM (14:30)
[2023-06-30 17:24] VITALS: BP 131/65; PULSE 100; RESP 18; TEMP 36.6; O2SAT 97
[2023-06-30] MEDS: Cocoa Butter/Zinc Oxide SUPP.RECT 1 SUPP PR (19:48)
[2023-06-30] MEDS: traZODone HCL 100 MG TABLET PO (19:48)
[2023-06-30] MEDS: Prazosin HCL 5 MG CAPSULE PO (19:49)
[2023-07-01] MEDS: Omeprazole 20 MG CAPSULE.DR PO ×2 (05:36→16:43)
[2023-07-01 08:09] VITALS: BP 128/62; PULSE 106; RESP 16; TEMP 36.4; O2SAT 98
[2023-07-01] MEDS: Gabapentin 100 MG CAPSULE 200 MG PO (08:26)
[2023-07-01] MEDS: Sertraline HCL 25 MG TABLET 75 MG PO (08:26)
[2023-07-01] MEDS: Benztropine Mesylate 0.5 MG TABLET PO ×2 (08:27→19:37)
[2023-07-01] MEDS: QUEtiapine Fumarate 25 MG TABLET PO (08:27)
[2023-07-01] MEDS: Docusate Sodium 100 MG CAPSULE PO ×2 (08:27→19:37)
[2023-07-01] MEDS: Multivitamin TABLET 1 TAB PO (08:27)
[2023-07-01] MEDS: Clindamycin HCL 300 MG CAPSULE PO ×2 (08:27→19:37)
[2023-07-01] MEDS: polyethylene glycoL 3350 17 GM POWD.PACK PO (09:07)
[2023-07-01] MEDS: hydrOXYzine HCL 50 MG TABLET PO ×2 (09:10→15:48)
[2023-07-01] MEDS: LORazepam 1 MG TABLET PO ×2 (09:41→19:36)
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
[2023-07-01] MEDS: OLANZapine 5 MG TABLET PO (15:09)
--- NOTE | 2023-07-01 15:29 | PC.NURSE ---
suture removal not performed. worklist item documented on wrong pt
[2023-07-01 16:10] VITALS: BP 105/66; PULSE 100; RESP 18; TEMP 36.9; O2SAT 98
[2023-07-01] MEDS: HaloperidoL 5 MG TABLET PO (17:52)
[2023-07-01] MEDS: Cocoa Butter/Zinc Oxide SUPP.RECT 1 SUPP PR (19:36)
[2023-07-01] MEDS: Prazosin HCL 5 MG CAPSULE PO (19:36)
[2023-07-01] MEDS: OLANZapine 10 MG TABLET PO (19:36)
[2023-07-01] MEDS: Ibuprofen 400 MG TABLET PO (19:36)
[2023-07-01] MEDS: traZODone HCL 100 MG TABLET PO (19:37)
--- NOTE | 2023-07-01 19:42 | PC.NURSE ---
Assumed care of this pt at 19:30. Pt standing in hallway and receiving evening scheduled meds from FREDERICK Mcclain. Offers no complaints at this time. Plan of care ongoing.
[2023-07-02] MEDS: Omeprazole 20 MG CAPSULE.DR PO ×3 (06:22→19:32)
[2023-07-02 08:17] VITALS: BP 116/63; PULSE 98; RESP 16; TEMP 36.7; O2SAT 98
[2023-07-02] MEDS: OLANZapine 10 MG TABLET PO ×2 (08:17→19:32)
[2023-07-02] MEDS: Multivitamin TABLET 1 TAB PO (08:17)
[2023-07-02] MEDS: Sertraline HCL 25 MG TABLET 75 MG PO (08:17)
[2023-07-02] MEDS: Docusate Sodium 100 MG CAPSULE PO ×2 (08:17→19:32)
[2023-07-02] MEDS: Benztropine Mesylate 0.5 MG TABLET PO ×2 (08:17→19:32)
[2023-07-02] MEDS: Clindamycin HCL 300 MG CAPSULE PO (08:17)
[2023-07-02] MEDS: OLANZapine 5 MG TABLET PO ×2 (09:19→15:35)
[2023-07-02] MEDS: polyethylene glycoL 3350 17 GM POWD.PACK PO (11:24)
[2023-07-02] MEDS: hydrOXYzine HCL 50 MG TABLET PO ×2 (11:28→17:30)
[2023-07-02] MEDS: LORazepam 1 MG TABLET PO ×2 (13:02→19:32)
[2023-07-02 18:00] VITALS: BP 122/66; PULSE 100; RESP 16; TEMP 36.8; O2SAT 98
[2023-07-02] MEDS: Cocoa Butter/Zinc Oxide SUPP.RECT 1 SUPP PR (19:32)
[2023-07-02] MEDS: Loperamide HCl 2 MG CAPSULE PO (19:32)
[2023-07-02] MEDS: traZODone HCL 100 MG TABLET PO (19:32)
[2023-07-02] MEDS: Prazosin HCL 5 MG CAPSULE PO (19:32)
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
[2023-07-03 08:15] VITALS: BP 130/65; PULSE 110; RESP 18; TEMP 36.8; O2SAT 98
[2023-07-03] MEDS: OLANZapine 10 MG TABLET PO ×2 (08:19→19:29)
[2023-07-03] MEDS: Benztropine Mesylate 0.5 MG TABLET PO ×2 (08:20→19:29)
[2023-07-03] MEDS: Sertraline HCL 25 MG TABLET 75 MG PO (08:20)
[2023-07-03] MEDS: Omeprazole 20 MG CAPSULE.DR PO ×2 (08:20→15:49)
[2023-07-03] MEDS: Multivitamin TABLET 1 TAB PO (08:20)
[2023-07-03] MEDS: Docusate Sodium 100 MG CAPSULE PO ×2 (08:20→19:29)
[2023-07-03] MEDS: polyethylene glycoL 3350 17 GM POWD.PACK PO (09:39)
[2023-07-03] MEDS: LORazepam 1 MG TABLET PO ×3 (09:40→19:29)
[2023-07-03] MEDS: OLANZapine 5 MG TABLET PO (10:59)
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
[2023-07-03] MEDS: Acetaminophen 325 MG TABLET 650 MG PO (14:02)
[2023-07-03] MEDS: hydrOXYzine HCL 50 MG TABLET PO ×2 (14:29→22:08)
[2023-07-03] MEDS: Ibuprofen 400 MG TABLET PO (15:49)
[2023-07-03] MEDS: Magnesium Hydrox/Alum Hydrox 30 ML ORAL.SUSP PO (17:40)
[2023-07-03 18:00] VITALS: BP 124/68; PULSE 95; RESP 17; TEMP 36.7; O2SAT 98
[2023-07-03] MEDS: traZODone HCL 100 MG TABLET PO (19:28)
[2023-07-03] MEDS: Prazosin HCL 5 MG CAPSULE PO (19:28)
[2023-07-03] MEDS: Cocoa Butter/Zinc Oxide SUPP.RECT 1 SUPP PR (19:29)
[2023-07-04] MEDS: Omeprazole 20 MG CAPSULE.DR PO ×2 (05:48→16:16)
[2023-07-04] MEDS: Docusate Sodium 100 MG CAPSULE PO ×2 (08:18→19:41)
[2023-07-04] MEDS: Multivitamin TABLET 1 TAB PO (08:18)
[2023-07-04] MEDS: OLANZapine 10 MG TABLET PO ×2 (08:18→19:42)
[2023-07-04] MEDS: Benztropine Mesylate 0.5 MG TABLET PO ×2 (08:18→19:41)
[2023-07-04] MEDS: Sertraline HCL 25 MG TABLET 75 MG PO (08:18)
[2023-07-04 08:20] VITALS: BP 146/70; PULSE 118; RESP 18; TEMP 36.4; O2SAT 97
[2023-07-04] MEDS: Dry Mouth Spray 60 ML SPRAY 1 SPRAY MUCOUS MEM ×3 (08:33→19:45)
[2023-07-04] MEDS: Magnesium Hydrox/Alum Hydrox 30 ML ORAL.SUSP PO (08:48)
[2023-07-04] MEDS: LORazepam 1 MG TABLET PO ×3 (09:34→19:42)
[2023-07-04] MEDS: polyethylene glycoL 3350 17 GM POWD.PACK PO (10:08)
[2023-07-04 11:01] VITALS: BMI 27.6
[2023-07-04] MEDS: hydrOXYzine HCL 50 MG TABLET PO ×2 (11:44→18:45)
[2023-07-04] MEDS: HaloperidoL 5 MG TABLET PO ×2 (11:45→18:45)
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
[2023-07-04 18:00] VITALS: BP 123/69; PULSE 99; RESP 12; TEMP 36.9; O2SAT 97
[2023-07-04] MEDS: Acetaminophen 325 MG TABLET 650 MG PO (18:44)
[2023-07-04 19:35] VITALS: BP 142/72; PULSE 97
[2023-07-04] MEDS: traZODone HCL 100 MG TABLET PO (19:41)
[2023-07-04] MEDS: Cocoa Butter/Zinc Oxide SUPP.RECT 1 SUPP PR (19:41)
[2023-07-04] MEDS: Prazosin HCL 5 MG CAPSULE PO (19:42)
[2023-07-04] MEDS: OLANZapine 5 MG TABLET PO (21:31)
[2023-07-05] MEDS: Omeprazole 20 MG CAPSULE.DR PO (06:19)
[2023-07-05 08:15] VITALS: BP 135/74; PULSE 98; RESP 18; TEMP 36.8; O2SAT 100
[2023-07-05] MEDS: polyethylene glycoL 3350 17 GM POWD.PACK PO (08:30)
[2023-07-05] MEDS: Multivitamin TABLET 1 TAB PO (08:30)
[2023-07-05] MEDS: Benztropine Mesylate 0.5 MG TABLET PO (08:30)
[2023-07-05] MEDS: Sertraline HCL 25 MG TABLET 75 MG PO (08:30)
[2023-07-05] MEDS: Docusate Sodium 100 MG CAPSULE PO (08:30)
[2023-07-05] MEDS: OLANZapine 10 MG TABLET PO (08:30)
[2023-07-05] MEDS: LORazepam 1 MG TABLET PO (09:19)
[2023-07-05] MEDS: hydrOXYzine HCL 50 MG TABLET PO (10:33)
[2023-07-05] MEDS: HaloperidoL 5 MG TABLET PO (10:33)
--- NOTE | 2023-07-06 00:26 | PC.NURSE ---
Late entry for 06/26/23 at 2034. Patient was given Ativan 1 mg po prn for anxiety. The medication did not show as being scanned.
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
== END 2023-07-05 11:30 | disposition home or self-care (01) | DRG 755 ==
LOC: HO.ED 06-20 10:09 → HO.PM5 06-20 13:08
PROVIDERS: Psychiatry & Neurology Psychiatry; Admitting Provider Clinical Nurse Specialist Psychiatric/Mental Health, Adult; Emergency Provider Emergency Medicine; Visit Provider Clinical Nurse Specialist Psychiatric/Mental Health, Adult
DX: F43.11 Post-traumatic stress disorder, acute (principal); R45.851 Suicidal ideations; N39.0 Urinary tract infection, site not specified; F41.1 Generalized anxiety disorder; F19.10 Other psychoactive substance abuse, uncomplicated; Z20.822 Contact with and (suspected) exposure to COVID-19; Z23 Encounter for immunization; Z62.810 Personal history of physical and sexual abuse in childhood; Z79.51 Long term (current) use of inhaled steroids; Z87.891 Personal history of nicotine dependence; Z79.899 Other long term (current) drug therapy
CPT/HCPCS: 0241U; 36415; 70220; 71046; 80048; 80053; 80061; 80307; 81001; 81025; 82607; 82746; 83036; 83690; 83735; 84439; 84443; 84484; 85025; 87070; 87086; 87088; 87186; 87205; 87635; 90686; 93005; 99285; S9485

== ENCOUNTER → 2023-06-19 13:36 | Outpatient (BNV) | payer MEDICAID, SELFPAY | PROVIDERS: Visit Provider Internal Medicine Cardiovascular Disease | DX: R41.9 Unspecified symptoms and signs involving cognitive functions and awareness (principal) | CPT/HCPCS: 93010 ==

== ENCOUNTER → 2023-06-20 12:51 | Outpatient (BNV) | payer OTHER, SELFPAY | PROVIDERS: Admitting Provider Clinical Nurse Specialist Psychiatric/Mental Health, Adult; Emergency Provider Emergency Medicine; Visit Provider Clinical Nurse Specialist Psychiatric/Mental Health, Adult | DX: F43.11 Post-traumatic stress disorder, acute (principal); N39.0 Urinary tract infection, site not specified | CPT/HCPCS: 99231; 99232 ==

== ENCOUNTER → 2023-07-17 13:15 | Outpatient (BNV) | payer OTHER, SELFPAY | PROVIDERS: Visit Provider Psychiatry & Neurology Psychiatry | DX: F31.9 Bipolar disorder, unspecified (principal); F43.10 Post-traumatic stress disorder, unspecified; F41.3 Other mixed anxiety disorders; F14.10 Cocaine abuse, uncomplicated; F12.10 Cannabis abuse, uncomplicated | CPT/HCPCS: 90837; 99213; 99214 ==

== ENCOUNTER → 2023-07-23 13:18 | Outpatient (REF) | payer MEDICAID, SELFPAY ==
--- NOTE | 2023-07-23 13:22 | ECG_ITS ---
Test Reason : QTC PROLONGNATION Blood Pressure : / mmHG Vent. Rate : 086 BPM Atrial Rate : 086 BPM P-R Int : 128 ms QRS Dur : 078 ms QT Int : 372 ms P-R-T Axes : 048 074 046 degrees QTc Int : 445 ms Normal sinus rhythm Normal ECG When compared with ECG of 20-JUN-2023 00:10, No significant change was found Referred By: Janelle Pierson Electronically Signed By:CRISTHIAN LANDAVERDE
== END ==
LOC: HO.CARD 13:18
PROVIDERS: Visit Provider Psychiatry & Neurology Psychiatry
DX: F40.01 Agoraphobia with panic disorder (principal)
CPT/HCPCS: 93005

== ENCOUNTER → 2023-07-23 13:22 | Outpatient (BNV) | payer MEDICAID, SELFPAY | PROVIDERS: Visit Provider Internal Medicine | DX: I45.81 Long QT syndrome (principal) | CPT/HCPCS: 93010 ==

== ENCOUNTER 2023-07-26 13:15 | Outpatient (RCR) | payer OTHER, SELFPAY ==
[2023-07-11 10:51] VITALS: BP 130/77; PULSE 77; TEMP 37.2
[2023-07-11 10:57] VITALS: BMI 28.2
--- NOTE | 2023-07-11 12:05 | PC.ADMIT ---
Patient is a 37 year old female who was referred by [facility] where she was admitted d/t severe anxiety, depression, SI, AH, and VH. Patient stated her brought her to the hospital after she spoke to crisis on the phone as they recommended she go to the hospital for an evaluation. Prior to hospitalization she reports she was having severe anxiety VH- seeing shadows and AH-hearing someone calling her when there was no one present. She stated she was scared when she started to hear a voice telling her to hang herself and that is why she called crisis. Patient reports trauma history. Patient currently is unemployed. She stated she I quit her job of 2 years d/t severe anxiety and panic attacks. She reports smoking marijuana up to 1/2 to 1 joint BID. Patient currently is alert and oriented x4. Calm and cooerative. She presented with depressed mood and anxious affect. Denied SI, AH, VH. She was given a copy of her safety plan if needed and I reviewed the plan with her. Medications reconciled with patient and patient's discharge paperwork from inpatient loc.
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
--- NOTE | 2023-07-11 18:40 | HO.PHP ---
Client's case has been opened and reviewed in treatment team.
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
[2023-07-16 14:24] LABS: Amphetamine Screen Urine Not Detected (Not Detect); Barbiturates, Urine Not Detected (Not Detect); Benzodiazepines Screen Urine Not Detected (Not Detect); Cocaine Screen Urine Not Detected (Not Detect); Opiate Screen Urine Not Detected (Not Detect); Phencyclidine Screen Urine Not Detected (Not Detect)
[2023-07-16 14:25] LABS: Cannabinoid Screen Urine POSITIVE (Not Detect); Fentanyl, urine Not Detected (Not Detect)
--- NOTE | 2023-07-16 17:19 | HO.PHP ---
PHP staff member faxed over a referral for OP therapy and Med Management to [facility][NOTE 3] lydia Traylor. PHP staff is awaiting scheduled dates and times.
--- NOTE | 2023-07-17 13:44 | HO.PHP ---
[facility] staff member received Kymberly's appointments from [facility], through [facility]. Kymberly has an OP intake appointment on July 22, 2023 at 12 PM with Henrry Farris at [address] [place] [address]. Kymberly has a med provider appointment on July 31, 2023 at 9 AM with Yonny Du at [address] [place] [address].
--- NOTE | 2023-07-18 17:23 | HO.PHPPROGNO ---
Subjective Subjective Date of Service: 07/18/23 Reason For Visit: PTSD,DAVE Interim History: For the past few days just feeling like everything is too much Patient reports a lot of mood instability, mood swings laughing, crying at the same time, for no reason she says she has no control over her emotions. Describes a lot of anger, lability and emotional incontinence. She can not separate her emotions, they are often just welling up in her at the same time. She was diagnosed many times with Bipolar Disorder back in [place]. SHe says she generally does not have long high or low episodes, but rather experiences constant emotional turmoil all the time, everyday, which is becomes more severe and dysregulated with stressors. She can not recall a recent time when her mood was stable. She continues to assert that her new medications have made little impact on stabilizing or improving her overall mood. She reports her was concerned because she was fighting in her sleep (he was up watching tv). He tried waking her but apparently she fell back asleep. Her reports she had a similar episode the following night (last night). She does not recall these episodes. She still feels depressed, sad, angry and fearful. She endorses feelings of hopelessness, helplessness and questioning the point of life, but denies any SI and cites her son as protective against those types of thoughts. She reports that Wednesdays are particularly difficult. She has a scheduled phone call with her son, but sometimes she gets so unraveled she will experience panic attacks or get so overwhelmed to the point to is unable to make the call. For these reasons, she delayed making the call to her son and once she did she was unable to speak to him because she was unable to reach his father. She complains of excessive sweating for the past 2 months, especially prevalent in the AM, however she reports sweating precedes starting on olanzapine and Haldol, and she is not clear whether the sweating is caused by any of her medications. VS from 07/11 was stable. She is agreeable to getting lab work done. In reviewing history, patient has reports 2 month hx of high anxiety, agoraphobia, restlessness, insomnia,nightmares, agitation, sweating, worsening mood,depression, hallucinations (apparently BZD withdrawal can extend for several weeks (according to [facility]). We had started on gabapentin to target anxiety, and also aim to potentially modulate any benzodiazepine withdrawal symptoms. She has been taking 300 mg BID, denies any adverse effects, has not appreciated any benefit thus far. We will continue to titrate gabapentin to 600 mg BID-TID as tolerated. At this point, i am not sure there would be any benefit from restabilishing a Klonopin taper, since perhaps the worst of the withdrawal sx would have passed weeks ago. We also discussed moving some of the prazosin to the AM to cover anxiety during the day, seeing as her BP may not allow for much further increased to overall prazosin dose, which is currently at 1 mg in AM/5 mg at night. Will increase AM dose to 2 mg and reduce night time to 3 mg and reassess next week. Medication Compliance: Yes Side effects from medications: No Attending Groups: Yes Review of Systems Acute medical concerns: No Mental Status Exam Mental Status Exam Narrative: MSE Alert, oriented, in no acute distress. Calm, cooperative, engaged. No psychomotor agitation or neurovegetative retardation. Eye contact maintained. Mood anxious, depressed, affect variable.. Speech normal. Thought process linear, coherent. Thought content related to stressors, denies hopelessness,SI or HI. No paranoia or delusional content elicited. No evidence of psychosis. Insight and judgment impaired. Diagnostics Vital Signs (24Hr): BMI result Body Mass Index 28.2 Assessment & Plan Assessment & Plan (1) Bipolar disorder, unspecified: Status: Acute Code(s): F31.9 - Bipolar disorder, unspecified (2) PTSD (post-traumatic stress disorder): Status: Acute Code(s): F43.10 - Post-traumatic stress disorder, unspecified (3) Other mixed anxiety disorders: Status: Acute Code(s): F41.3 - Other mixed anxiety disorders (4) Cannabis abuse: Status: Acute Code(s): F12.10 - Cannabis abuse, uncomplicated (5) Cocaine abuse: Status: Acute Code(s): F14.10 - Cocaine abuse, uncomplicated Plan increase gabapentin to 600 mg BID (will consider TID) increase prazosin to 2 mg qAM decrease prazosin to 3 mg qHS start lithium 150 mg BID, will increase to 300 mg BID as tolerated, then lithium level from after 5 days hold olanzapine 10 mg qAM continue olanzapine 10 mg qHS switch Haldol 5 mg BID to PRN dosing twice during the day as needed for acute anxiety for now will continue benztropine 0.5 mg BID (to be taken with Haldol) offered to send her short script of clonazepam to take weekly for phone call with her son Patient educated on: diagnosis, medication risk/benefits and substance abuse Informed Consent: understands Reason for contiued partial hosp. stay Substantial Risk for: inability to function, rapid decompensation and med/psych decompensation Certification I certify that partial hospital treatment is medically necessary due to the symptoms and problems resulting from the patient's mental illness and the failure to treat the patient at the partial hospital level of care would likely result in the patient requiring inpatient psychiatric care which could not be prevented at a less intensive level of care. Total time managing care of this patient today __30__ minutes. Discharge Plan Discharge Attending provider: Janelle Pierson Additional Instructions: Kymberly has an OP intake appointment on July 22, 2023 at 12 PM with Henrry Farris at [address] [place] [address]. Kymberly has a med provider appointment on July 31, 2023 at 9 AM with Yonny Du at [address] [place] [address]. Medications: New sertraline 100 mg tablet 100 mg PO DAILY Qty: 20 0RF metformin 500 mg tablet 500 mg PO .QHS Qty: 20 0RF gabapentin 600 mg tablet See Rx Instructions .ROUTE .COMPLEX Qty: 20 0RF Rx Instructions: start at 1/2 tablet po BID for one week, then increase to 1 tablet po BID lithium carbonate 300 mg tablet See Rx Instructions .ROUTE .COMPLEX Qty: 30 0RF Rx Instructions: start 1/2 tablet po BID for 4 days, then increase to 1 tablet po BID prazosin 2 mg capsule 2 mg PO BID Qty: 30 0RF Continued fluticasone propionate [Flovent HFA] 110 mcg/actuation HFA aerosol inhaler 1 puff inhalation BID Vitamin Plus Low Iron 27 mg iron- 1 mg tablet 1 tab PO DAILY sertraline 25 mg Tablet 75 mg PO DAILY Qty: 90 0RF albuterol sulfate [Ventolin HFA] 90 mcg/actuation Hfa Aerosol Inhaler 1 puff inhalation RQ4H PRN (Reason: Wheezing) Qty: 1 0RF polyethylene glycol 3350 17 gram Powder In Packet 17 g PO DAILY Qty: 226.8 0RF Calmol-4 76-10 % Suppository 1 supp [place] BEDTIME Qty: 0 0RF benztropine 0.5 mg Tablet 0.5 mg PO BID Qty: 20 0RF olanzapine 10 mg Tablet 10 mg PO BID Qty: 20 0RF prazosin 5 mg Capsule 5 mg PO BEDTIME Qty: 10 1RF Protocol: Hold for SBP< HOLD for SBP < : 90 trazodone 100 mg Tablet 100 mg PO BEDTIME Qty: 10 1RF docusate sodium 100 mg Capsule 100 mg PO BID Qty: 20 0RF omeprazole 20 mg Capsule,Delayed Release(Dr/Ec) 20 mg PO BID@0630,1630 Qty: 20 0RF hydroxyzine pamoate 25 mg capsule 50 mg PO Q6H PRN (Reason: anxiety) Qty: 30 1RF Changed prazosin 1 mg capsule 1 mg PO QAM Qty: 30 0RF Discontinued haloperidol 5 mg Tablet 5 mg PO BID PRN (Reason: agitation, grounding) Qty: 14 0RF olanzapine 5 mg Tablet 5 mg PO BID PRN (Reason: anxiety, agitation) Qty: 10 0RF Stand Alone Forms: Patient Portal Discharge page
--- NOTE | 2023-07-24 14:27 | PC.NURSE ---
Reviewed with Dr Pierson that Kymberly's rash on her forehead has improved however patient has a rash on her L upper arm. Per Dr Pierson patient is to continue holding H. Rivera Colon and also hold Gabapentin and she will see patient tomorrow. Reviewed instructions with Kymberly to continue to hold H. Rivera Colon in addition to holding Gabapentin which she agreed to do.
--- NOTE | 2023-07-25 17:50 | HO.PHPPROGNO ---
Subjective Subjective Date of Service: 07/25/23 Reason For Visit: PTSD,DAVE Interim History: Patient seen for follow up. SHe is noting a rash that is across her forehead and ears and neck. She is also noted to have dyed her hair bright pink and also says she believes she has had rashes similar to this before, but could not give any specific history regarding this. Nonethless she will be leaving tomorrow and it is unclear whether this may be due to the gabapentin or lithium, for safety sake I will have her hold both. This is unfortunate as she seems calmer with the addition of lithium over the weekend. Mood is more stable, since she started on the lithium 1/2 tablet of 300 mg and increased to BID dosing. SHe is still dealing with anxiety. She found the clonazepam very helpful and was able to make phone call with her son. She. She reports her mood is good, just anxiety is the main issue. She is open to starting on ziprasidone as a PRN medication for her anxiety and says she will start today so that we can review findings tomorrow. She says she is feeling more motivated and more hopeful. She denies any hopelessness or SI. Medication Compliance: Yes Side effects from medications: No Attending Groups: Yes Review of Systems Acute medical concerns: No Mental Status Exam Mental Status Exam Narrative: Alert, oriented, in no acute distress. Calm, cooperative. Eye contact good. Mood anxious but otherwise okay , affect variable, some anxiety. Speech normal. Thought process linear, coherent. Thought content related to stressors, denies any helplessness, hopelessness or SI.? No aggressive ideation or HI. No paranoia or delusional content elicited. No evidence of psychosis. Insight and judgment fair-good. Diagnostics Vital Signs (24Hr): BMI result Body Mass Index 28.2 Assessment & Plan Assessment & Plan (1) Bipolar disorder, unspecified: Status: Acute Code(s): F31.9 - Bipolar disorder, unspecified (2) PTSD (post-traumatic stress disorder): Status: Acute Code(s): F43.10 - Post-traumatic stress disorder, unspecified (3) Other mixed anxiety disorders: Status: Acute Code(s): F41.3 - Other mixed anxiety disorders (4) Cocaine abuse: Status: Acute Code(s): F14.10 - Cocaine abuse, uncomplicated (5) Cannabis abuse: Status: Acute Code(s): F12.10 - Cannabis abuse, uncomplicated Plan stop gabapentin (@600 mg BID) - unclear if med is causing rash, she can revisit this with her OP provider stop lithium (@150 mg BID) - unclear if med is causing rash, she can revisit this with her OP provider will start ziprasidone 20 mg BID PRN for anxiety,agitation, PTSD symptoms continue clonazepam 0.5 mg, 30-45 min prior to phone call with son on Wednesdays continue prazosin 2 mg BID continue olanzapine 10 mg qHS metformin 500 mg (split bid dosing) follow up tomorrow anticipate discharge tomorrow Patient educated on: diagnosis, medication risk/benefits and substance abuse Informed Consent: understands Reason for contiued partial hosp. stay Substantial Risk for: med/psych decompensation Certification I certify that partial hospital treatment is medically necessary due to the symptoms and problems resulting from the patient's mental illness and the failure to treat the patient at the partial hospital level of care would likely result in the patient requiring inpatient psychiatric care which could not be prevented at a less intensive level of care. Total time managing care of this patient today __30__ minutes. Discharge Plan Discharge Attending provider: Janelle Pierson Additional Instructions: Kymberly has an OP intake appointment on July 22, 2023 at 12 PM with Henrry Farris at [address] [place] [address]. Kymberly has a med provider appointment on July 31, 2023 at 9 AM with Yonny Du at [address] [place] [address]. Medications: New ziprasidone HCl 20 mg capsule 20 mg PO BID PRN (Reason: agitation) Qty: 20 0RF Rx Instructions: give with food (meal/snack) olanzapine 10 mg tablet 10 mg PO BEDTIME Qty: 20 0RF Continued fluticasone propionate [Flovent HFA] 110 mcg/actuation HFA aerosol inhaler 1 puff inhalation BID Vitamin Plus Low Iron 27 mg iron- 1 mg tablet 1 tab PO DAILY albuterol sulfate [Ventolin HFA] 90 mcg/actuation Hfa Aerosol Inhaler 1 puff inhalation RQ4H PRN (Reason: Wheezing) Qty: 1 0RF polyethylene glycol 3350 17 gram Powder In Packet 17 g PO DAILY Qty: 226.8 0RF Calmol-4 76-10 % Suppository 1 supp IN BEDTIME Qty: 0 0RF clonazepam 0.5 mg tablet 0.5 mg PO DAILY PRN (Reason: as directed) Qty: 8 0RF metformin 500 mg tablet 500 mg PO .QHS Qty: 30 0RF sertraline 100 mg tablet 100 mg PO DAILY 30 Days Qty: 30 0RF docusate sodium 100 mg Capsule 100 mg PO BID Qty: 30 0RF omeprazole 20 mg Capsule,Delayed Release(Dr/Ec) 20 mg PO BID@0630,1630 Qty: 30 0RF prazosin 2 mg capsule 2 mg PO BID Qty: 60 0RF Changed hydroxyzine pamoate 25 mg capsule 25 mg PO BID PRN (Reason: anxiety) Qty: 60 0RF Discontinued benztropine 0.5 mg Tablet 0.5 mg PO BID Qty: 30 1RF haloperidol 5 mg Tablet 5 mg PO BID PRN (Reason: agitation, grounding) Qty: 14 0RF olanzapine 5 mg Tablet 5 mg PO BID PRN (Reason: anxiety, agitation) Qty: 10 0RF olanzapine 10 mg Tablet 10 mg PO BID Qty: 30 1RF prazosin 5 mg Capsule 5 mg PO BEDTIME Qty: 15 1RF Protocol: Hold for SBP< HOLD for SBP < : 90 trazodone 100 mg Tablet 100 mg PO BEDTIME Qty: 15 1RF sertraline 25 mg Tablet 75 mg PO DAILY Qty: 90 0RF Stand Alone Forms: Patient Portal Discharge page Patient Education: Depression (DC)
--- NOTE | 2023-07-26 15:24 | HO.PHPPROGNO ---
Subjective Subjective Date of Service: 07/26/23 Reason For Visit: PTSD,DAVE Interim History: Patient seen for follow-up, anticipating discharge at the end of program today.? Reports no acute issues or concerns. Medication compliant, medications well-tolerated. Denies any adverse effects.? Mood is stable.? Denies any hopelessness or SI. Denies thoughts of harming self or others at this time. Denies any aggressive ideation or HI. Denies any paranoia or AH or VH. Sleep, appetite, energy stable. Mental Status Exam Mental Status Exam Narrative: Alert, oriented, in no acute distress. Calm, cooperative. Eye contact good. Mood euthymic, affect variable, some anxiety, appropriate. Speech normal. Thought process linear, coherent. Thought content related to stressors, denies any helplessness, hopelessness or SI.? No aggressive ideation or HI. No paranoia or delusional content elicited. No evidence of psychosis. Insight and judgment fair-good. Diagnostics Vital Signs (24Hr): BMI result Body Mass Index 28.2 Assessment & Plan Assessment & Plan (1) Bipolar disorder, unspecified: Status: Acute Code(s): F31.9 - Bipolar disorder, unspecified (2) PTSD (post-traumatic stress disorder): Status: Acute Code(s): F43.10 - Post-traumatic stress disorder, unspecified (3) Other mixed anxiety disorders: Status: Acute Code(s): F41.3 - Other mixed anxiety disorders (4) Cannabis abuse: Status: Acute Code(s): F12.10 - Cannabis abuse, uncomplicated Plan Discharge from [facility] continue regular medications Medication changes: Olanzapine decreased from 20 mg to 10 mg/d. Prazosin changed from 5 mg QHS to 2 mg BID. Zoloft increased to 100 mg. Discontinued meds: Haldol 5 mg BID. benztropine 0.5 mg BID. trazodone 100 mg. (gabapentin or lithium caused rash, both were discontinued) New medications: Geodon 20 mg BID, metformin 500 mg qd, clonazepam 0.5 mg on Wednesdays, will defer further medication management to outpatient provider Refills sent to pharmacy Patient educated on: diagnosis, medication risk/benefits and substance abuse Informed Consent: understands Reason for contiued partial hosp. stay Substantial Risk for: stable for discharge Certification I certify that partial hospital treatment is medically necessary due to the symptoms and problems resulting from the patient's mental illness and the failure to treat the patient at the partial hospital level of care would likely result in the patient requiring inpatient psychiatric care which could not be prevented at a less intensive level of care. Total time managing care of this patient today _30___ minutes. Discharge Plan Discharge Attending provider: Janelle Pierson Additional Instructions: Kymberly has an OP intake appointment on July 22, 2023 at 12 PM with Henrry Farris at [address] [place] [address]. Kymberly has a med provider appointment on July 31, 2023 at 9 AM with Yonny Du at [address] [place] [address]. Medications: New ziprasidone HCl 20 mg capsule 20 mg PO BID PRN (Reason: agitation) Qty: 20 0RF Rx Instructions: give with food (meal/snack) olanzapine 10 mg tablet 10 mg PO BEDTIME Qty: 20 0RF Continued fluticasone propionate [Flovent HFA] 110 mcg/actuation HFA aerosol inhaler 1 puff inhalation BID Vitamin Plus Low Iron 27 mg iron- 1 mg tablet 1 tab PO DAILY albuterol sulfate [Ventolin HFA] 90 mcg/actuation Hfa Aerosol Inhaler 1 puff inhalation RQ4H PRN (Reason: Wheezing) Qty: 1 0RF polyethylene glycol 3350 17 gram Powder In Packet 17 g PO DAILY Qty: 226.8 0RF Calmol-4 76-10 % Suppository 1 supp [place] BEDTIME Qty: 0 0RF clonazepam 0.5 mg tablet 0.5 mg PO DAILY PRN (Reason: as directed) Qty: 8 0RF metformin 500 mg tablet 500 mg PO .QHS Qty: 30 0RF sertraline 100 mg tablet 100 mg PO DAILY 30 Days Qty: 30 0RF docusate sodium 100 mg Capsule 100 mg PO BID Qty: 30 0RF omeprazole 20 mg Capsule,Delayed Release(Dr/Ec) 20 mg PO BID@0630,1630 Qty: 30 0RF prazosin 2 mg capsule 2 mg PO BID Qty: 60 0RF Changed hydroxyzine pamoate 25 mg capsule 25 mg PO BID PRN (Reason: anxiety) Qty: 60 0RF Discontinued benztropine 0.5 mg Tablet 0.5 mg PO BID Qty: 30 1RF haloperidol 5 mg Tablet 5 mg PO BID PRN (Reason: agitation, grounding) Qty: 14 0RF olanzapine 5 mg Tablet 5 mg PO BID PRN (Reason: anxiety, agitation) Qty: 10 0RF olanzapine 10 mg Tablet 10 mg PO BID Qty: 30 1RF prazosin 5 mg Capsule 5 mg PO BEDTIME Qty: 15 1RF Protocol: Hold for SBP< HOLD for SBP < : 90 trazodone 100 mg Tablet 100 mg PO BEDTIME Qty: 15 1RF sertraline 25 mg Tablet 75 mg PO DAILY Qty: 90 0RF Stand Alone Forms: Patient Portal Discharge page Patient Education: Depression (DC)
== END 2023-07-26 23:59 | disposition home or self-care (01) ==
LOC: HO.PHPA 13:15
PROVIDERS: Visit Provider Psychiatry & Neurology Psychiatry
DX: F31.9 Bipolar disorder, unspecified (principal); F43.10 Post-traumatic stress disorder, unspecified; F41.3 Other mixed anxiety disorders; F12.10 Cannabis abuse, uncomplicated; F14.10 Cocaine abuse, uncomplicated; Z79.899 Other long term (current) drug therapy
CPT/HCPCS: 80307; 90791; 90853

== ENCOUNTER 2023-07-31 10:44 | Outpatient (REF) | payer MEDICAID, SELFPAY ==
[2023-07-31 12:26] LABS: Lithium 0.39 mmol/L (0.60-1.20)
[2023-07-31 12:50] LABS: Anion Gap 12 (12-20); Blood Urea Nitrogen 12 mg/dL (9-16); Calcium 9.7 mg/dL (8.4-10.2); Carbon Dioxide 27 mmol/L (22-29); Chloride 105 mmol/L (96-108); Estimated Glomerular Filt Rate > 60; Glucose Random 99 mg/dL (60-115); Potassium 3.8 mmol/L (3.3-5.1); Sodium 140 mmol/L (135-145); Thyroid Stimulating Hormone 2.27 uIU/mL (0.32-4.0)
== END 2023-07-31 10:45 | disposition home or self-care (01) ==
LOC: HO.HHCL 10:44
PROVIDERS: Visit Provider Clinical Nurse Specialist Psychiatric/Mental Health, Adult
DX: Z79.899 Other long term (current) drug therapy (principal)
CPT/HCPCS: 36415; 80048; 80178; 84443

== ENCOUNTER 2023-08-23 05:13 | Inpatient (IN) | payer OTHER, SELFPAY ==
--- NOTE | 2023-08-23 | ECG_ITS ---
Test Reason : CHECK QT Blood Pressure : / mmHG Vent. Rate : 082 BPM Atrial Rate : 082 BPM P-R Int : 138 ms QRS Dur : 076 ms QT Int : 352 ms P-R-T Axes : 048 065 044 degrees QTc Int : 411 ms Normal sinus rhythm with sinus arrhythmia Normal ECG When compared with ECG of 23-JUL-2023 13:24, No significant change was found Referred By: Marcos Perez Electronically Signed By:Lavon Huynh
--- NOTE | ~2023-08-23 | US_ITS ---
EXAMINATION: US ABDOMEN LIMITED CLINICAL INFORMATION: Right upper quadrant pain. COMPARISON: None available. TECHNIQUE: Real-time imaging of the right upper quadrant abdominal viscera. FINDINGS: PANCREAS: Normal. LIVER: The liver is normal in size. The liver contour is normal. Parenchymal echogenicity is increased. No focal hepatic lesion. There is no intrahepatic biliary duct dilatation seen. GALLBLADDER: The gallbladder wall thickness is 0.2 cm. The gallbladder is physiologically distended without evidence of stones, sludge, polyps, wall thickening or pericholecystic fluid. COMMON BILE DUCT: Normal in caliber measuring 0.4 cm in diameter. RIGHT KIDNEY: Normal. No hydronephrosis. No renal calculi or focal parenchymal lesions. The kidney measures 12.0 cm in maximum dimension. FREE FLUID: None. US/US abdomen limited IMPRESSION: 1. Diffusely echogenic liver without focal lesion. 2. Visualized pancreas, gallbladder, CBD and right kidney is unremarkable.
--- NOTE | ~2023-08-23 | CT_ITS ---
EXAMINATION: CT ABDOMEN AND PELVIS WITH CONTRAST CLINICAL INFORMATION: Abdominal pain COMPARISON: None available. TECHNIQUE: Multidetector volumetric images were obtained from the superior aspect of the liver through the pubic symphysis following administration 85 mL of Omnipaque 350 intravenous contrast. Sagittal and coronal reformatted images were obtained on the technologist's workstation. Oral contrast: No This CT examination was performed using dose optimization techniques as appropriate, variously including the following: *Automated exposure control *Adjustment of mA and/or kV according to patient size (this includes techniques or standardized protocols for targeted exams where dose is matched to indication/reason for exam; i.e. extremities or head) *Use of iterative reconstruction technique DLP: 598 mGy-cm FINDINGS: BEEF BONER: Right abdominal surgical clips. Nonobstructive bowel pattern. Right iliac sclerotic focus. LUNG BASES: Mild atelectasis. Nonenlarged heart. No pericardial effusion. LIVER, GALLBLADDER, AND BILIARY TREE: Prominent liver with diffuse mild hypoattenuation to the liver parenchyma. Too small to characterize right hepatic subcapsular hypodensities. No biliary ductal dilatation is present. The gallbladder is unremarkable with no evidence of radiopaque gallstones, gallbladder wall thickening, or obvious pericholecystic inflammatory changes. PANCREAS: Unremarkable. SPLEEN: Unremarkable. ADRENAL GLANDS: Unremarkable. KIDNEYS AND URETERS: The kidneys are normal in size, shape, and attenuation. No hydronephrosis or hydroureter. 3 mm right lower pole nonobstructing renal calculus. No perinephric stranding. BLADDER: Decompressed. GASTROINTESTINAL TRACT: Small hiatal hernia. Decompressed stomach. Nonobstructive bowel pattern. Appendix not seen with certainty. Right lower quadrant clips are identified. Mild diverticulosis without diverticulitis. Redundant sigmoid colon. ABDOMINAL WALL: Small fat filled umbilical hernia. LYMPH NODES: Normal. VASCULAR: Unremarkable. PELVIC VISCERA: Anteriorly positioned ovaries with right dominant follicles/cysts. OSSEOUS AND SOFT TISSUE STRUCTURES: Left groin surgical clips. Likely benign right iliac bone island. No suspicious osseous lesions. Unremarkable. CT/CT abdomen pelvis w IV con IMPRESSION: No acute intra-abdominal or pelvic pathology. Diverticulosis without diverticulitis. 3 mm nonobstructing right lower pole renal calculus. Enlarged fatty liver, question too small to characterize hepatic cyst(s). Fleischner guidelines were followed.
[2023-08-23 05:24] VITALS: BP 130/79; PULSE 91; RESP 18; TEMP 36.7; O2SAT 99; BMI 29.7
[2023-08-23] MEDS: Ondansetron ODT 4 MG TAB.RAPDIS TRANSLINGU (06:03)
[2023-08-23] MEDS: LORazepam 2 MG/ML VIAL IM (06:03)
[2023-08-23] MEDS: Magnesium Hydrox/Alum Hydrox 30 ML ORAL.SUSP PO ×3 (06:03→17:27)
[2023-08-23] MEDS: Lidocaine HCl Viscous 2 % 15 ML SOLUTION MUCOUS MEM (06:03)
[2023-08-23 06:05] LABS: MANUAL DIFF FLAG NO
--- NOTE | 2023-08-23 06:06 | ED_ITS ---
HPI - Psych General Chief Complaint: Psychiatric Symptoms Stated Complaint: SI Time Seen by Provider: 08/23/23 05:43 Source: patient and old records reviewed Mode of arrival: ambulatory Limitations: no limitations History of Present Illness HPI Narrative: 37 yo female with PMH Of MDD, anxiety, PTSD, substance abuse, PTSD notes she has had increased nausea/vomiting, stress, acid reflux then started with vomiting, increased GERD symptoms and diarrhea. She has not taken her medications in 4 days due to this. She has had to go through this before. She now has SI and wants to jump out of window of her house. complaint: suicidal ideation, feels depressed and anxiety Onset (ago): day(s) (4) Duration: getting worse History of same: Yes Relieving factors: none Exacerbating factors: other Context: not taking psychiatric medications Associated psychiatric symptoms: depression and suicidal ideation Associated symptoms: nausea and vomiting Treatments prior to arrival: none If self harm: admits thoughts of self harm and has plan Related Data Home Medications Medication Instructions Recorded Confirmed fluticasone propionate 110 1 puff inhalation BID 06/20/23 07/11/23 mcg/actuation HFA aerosol inhaler (Flovent HFA) vitamin with calcium 1 tab PO DAILY 06/20/23 07/11/23 no.72-iron 27 mg-folic acid 1 mg tablet ( Vitamins Plus Low Iron) Previous Rx's Medication Instructions Recorded albuterol sulfate 90 mcg/actuation 1 puff inhalation RQ4H PRN 07/04/23 aerosol inhaler (Ventolin HFA) Wheezing #1 inhaler cocoa butter-zinc oxide 76 %-10 % 1 supp OK BEDTIME #0 ea 07/04/23 rectal suppository (Calmol-4) polyethylene glycol 3350 17 gram 17 g PO DAILY #226.8 grams 07/04/23 oral powder packet clonazepam 0.5 mg tablet 0.5 mg PO DAILY PRN as directed #8 07/25/23 tabs olanzapine 10 mg tablet 10 mg PO BEDTIME #20 tabs 07/25/23 ziprasidone HCl 20 mg capsule 20 mg PO BID PRN agitation #20 caps 07/25/23 docusate sodium 100 mg capsule 100 mg PO BID #30 caps 07/26/23 hydroxyzine pamoate 25 mg capsule 25 mg PO BID PRN anxiety #60 caps 07/26/23 metformin 500 mg tablet 500 mg PO .QHS #30 tabs 07/26/23 omeprazole 20 mg capsule,delayed 20 mg PO BID@0630,1630 #30 caps 07/26/23 release prazosin 2 mg capsule 2 mg PO BID #60 caps 07/26/23 sertraline 100 mg tablet 100 mg PO DAILY 30 days #30 tabs 07/26/23 Allergies Allergy/AdvReac Type Severity Reaction Status Date / Time Penicillins Allergy Severe Anaphylaxis Verified 06/14/21 06:59 almond Allergy Anaphylaxis Verified 06/19/23 13:36 shrimp Allergy Anaphylaxis Verified 06/19/23 13:36 peanuts Allergy Severe Anaphylaxis Uncoded 06/21/23 11:26 Review of Systems 2 Review of Systems: Constitutional : No Weight loss, No Fever, No Chills ENT/Mouth : No sore throat, No Rhinorrhea Eyes: No Swelling, No Redness Cardiovascular : No Chest Pain, No SOB, NoEdema Respiratory : No Cough, No Sputum, No Wheezing Gastrointestinal : Positive Nausea, Positive Vomiting, positive Diarrhea, positive abdominal Pain, No Hematochezia, No Melena Genitourinary : No Dysuria, No Urinary Frequency, No Hematuria, No Urgency Musculoskeletal : No joint pain, No Myalgias, No Joint Swelling Skin : No Skin Lesions, No rash Neuro : No Weakness, No Numbness, No Dizziness, No Headache Psych : pos Anxiety/Panic, pos Depression, pos SI, no HI All other systems reviewed and are negative. [facility] Past Medical History Attestation statement: The following information was validated with the patient. Source: old records reviewed Medical History History of irregular heartbeat Acute posttraumatic stress disorder UTI (urinary tract infection) Asthma exacerbation Social History Social History Household Members: Significant Other Household Members Other:: Every other week, partners 2 children come to stay with him Saturday- Saturday Housing: Apartment Do you presently have visiting nurse or other home services: No Alcohol intake: former Patient Tobacco Use Status: Former Tobacco user e-Cigarette/Vaping Use: Former Use Second Hand Smoke Exposure: Yes Substance Use Type: Marijuana and Caffiene Advance Directives: No Advance Directives Information Provided: No Patient : No service: No Sexual orientation: Straight/Heterosexual Physical Exam 2 Vital Signs: Vital Signs: Last Vital Signs Temp 98.0 F 08/23/23 05:24 Pulse 91 08/23/23 05:24 Resp 18 08/23/23 05:24 BP 130/79 08/23/23 05:24 Pulse Ox 99 08/23/23 05:24 O2 Del Method Room Air 08/23/23 05:24 BMI result Body Mass Index 29.7 Appearance: Alert. Oriented X3. No acute distress. Eyes: Pupils equal, round and reactive to light. ENT: Pharynx normal. Neck: Normal inspection. Neck supple. CVS: Normal heart rate and rhythm. Pulses normal. Respiratory: No respiratory distress. Breath sounds normal. Abdomen: Soft and mild epigastric pain no rebound or guarding Skin: Skin warm and dry. Normal skin color. Normal skin turgor. Extremities: No lower extremity edema. No calf ttp Neuro: Oriented X 3. No motor deficit. No sensory deficit. CN2-12 intact Course Course Course Narrative: signed out to Dr. Perez pending US and labs, CARE team. Medications Administered Discontinued Medications Generic Name Dose Route Start Last Admin Trade Name Tobyq PRN Reason Stop Dose Admin Al Hydroxide/Mg Hydroxide 30 ml 08/23/23 05:53 08/23/23 06:03 Magnesium Hydrox/Alum Hydrox 30 Ml Oral.Susp PO 08/23/23 05:54 30 ml ONCE ONE Administration Lidocaine HCl 15 ml 08/23/23 05:53 08/23/23 06:03 Lidocaine Hcl Viscous 2 % 15 Ml Solution MUCOUS MEM 08/23/23 05:54 15 ml ONCE ONE Administration Lorazepam 2 mg 08/23/23 05:53 08/23/23 06:03 Lorazepam 2 Mg/Ml Vial IM 08/23/23 05:54 2 mg STAT STA Administration Ondansetron HCl 4 mg 08/23/23 05:53 08/23/23 06:03 Ondansetron Odt 4 Mg Tab.Rapdis TRANSLINGU 08/23/23 05:54 4 mg ONCE ONE Administration Medical Decision Making Medical Decision Making [facility] Narrative: 37 yo female with PMH Of MDD, anxiety, PTSD, substance abuse, PTSD here with n/v/d and upper abdominal pain she has had appendectomy in the past. At this time will need basic labs, UA, US to evaluate gallbladder. She will be given GI cocktail, ODT zofran, IM ativan at her request for anxiety this is not sedation or restraint. Possible PUD, biliary colic, cyclical vomiting, anxiety Differential Diagnosis Differential Diagnoses: The differential diagnosis associated with the presentation includes PUD, biliary colic, cyclical vomiting, anxiety, depression Admission/Observation Consideration of admission/observation: Escalation of care including admission/observation considered Lab Data MDM Lab Attestation statement: I reviewed the patient's lab results. 08/23/23 06:04 08/23/23 06:04 Labs: Lab Results 08/23/23 Range/Units 06:04 WBC 17.5 H (4.8-10.8) X10*3/uL RBC 4.92 (4.20-5.50) X10*6/uL Hgb 12.4 (12.0-16.0) g/dl Hct 38.2 (37.0-47.0) % MCV 77.6 L (80.0-98.0) fL MCH 25.2 L (27.0-33.0) pg MCHC 32.5 (31.0-35.0) g/dl RDW 14.0 (11.0-16.0) % Plt Count 514 H D (160-400) X10*3/uL MPV 9.5 (9.4-12.3) fL Immature Gran % (Auto) 0.6 H (0.0-0.4) % Neut % (Auto) 85.9 H (45-73) % Lymph % (Auto) 9.3 L (20-40) % Towner % (Auto) 3.3 (2-11) % Eos % (Auto) 0.6 (0-4) % Baso % (Auto) 0.3 (0-2) % Lymph # (Auto) 1.6 (1.2-4.9) X10*3/uL Towner # (Auto) 0.6 (0.1-1.2) X10*3/uL Eos # (Auto) 0.1 (0.0-0.4) X10*3/uL Baso # (Auto) 0.1 (0.0-0.2) X10*3/uL Abs Immat Gran (auto) 0.11 H (0.00-0.03) X10*3/uL Absolute Neuts (auto) 15.0 H (2.0-8.3) x10*3/uL Absolute Nucleated RBC 0.000 (0.0-0.012) X10*3/uL Nucleated RBC % (auto) 0.0 (0.0-0.2) /100WBC Sodium 139 (135-145) mmol/L Potassium 3.8 (3.3-5.1) mmol/L Chloride 106 (96-108) mmol/L Carbon Dioxide 25 (22-29) mmol/L Anion Gap 12 (12-20) BUN 11 (9-16) mg/dL Creatinine 0.77 (0.5-1.4) mg/dL Estim Creat Clear Calc 121.6 Estimated GFR > 60 Random Glucose 127 H (60-115) mg/dL Calcium 9.6 (8.4-10.2) mg/dL Magnesium 1.9 (1.6-2.6) mg/dL Total Bilirubin 0.4 (0.0-1.0) mg/dL Direct Bilirubin 0.2 (0.0-0.5) mg/dL AST 15 (5-31) U/L ALT 16 (0-31) U/L Alkaline Phosphatase 88 (39-117) U/L Total Protein 8.1 H (6.5-8.0) g/dL Albumin 4.3 (3.5-5.0) g/dL Lipase 17 (8-78) U/L Ethyl Alcohol < 10 mg/dL Influenza Type A (PCR) NEGATIVE (Negative) Influenza Type B (PCR) NEGATIVE (Negative) RSV RNA Qual (PCR) NEGATIVE (Negative) SARS-CoV-2 RNA (RT-PCR) NEGATIVE (Negative) External Record Review External record reviewed: Inpatient record Discharge Plan Discharge Clinical Impression: Anxiety and depression Nausea & vomiting Qualifiers: Vomiting type: unspecified Qualified Code(s): R11.2 - Nausea with vomiting, unspecified Patient Disposition: Still a Patient Prescriptions: No Action fluticasone propionate [Flovent HFA] 110 mcg/actuation HFA aerosol inhaler 1 puff inhalation BID Vitamin Plus Low Iron 27 mg iron- 1 mg tablet 1 tab PO DAILY albuterol sulfate [Ventolin HFA] 90 mcg/actuation Hfa Aerosol Inhaler 1 puff inhalation RQ4H PRN (Reason: Wheezing) Qty: 1 0RF polyethylene glycol 3350 17 gram Powder In Packet 17 g PO DAILY Qty: 226.8 0RF Calmol-4 76-10 % Suppository 1 supp OK BEDTIME Qty: 0 0RF clonazepam 0.5 mg tablet 0.5 mg PO DAILY PRN (Reason: as directed) Qty: 8 0RF ziprasidone HCl 20 mg capsule 20 mg PO BID PRN (Reason: agitation) Qty: 20 0RF Rx Instructions: give with food (meal/snack) olanzapine 10 mg tablet 10 mg PO BEDTIME Qty: 20 0RF metformin 500 mg tablet 500 mg PO .QHS Qty: 30 0RF sertraline 100 mg tablet 100 mg PO DAILY 30 Days Qty: 30 0RF docusate sodium 100 mg Capsule 100 mg PO BID Qty: 30 0RF omeprazole 20 mg Capsule,Delayed Release(Dr/Ec) 20 mg PO BID@0630,1630 Qty: 30 0RF hydroxyzine pamoate 25 mg capsule 25 mg PO BID PRN (Reason: anxiety) Qty: 60 0RF prazosin 2 mg capsule 2 mg PO BID Qty: 60 0RF Interventions: Mitchell-Suicide Risk Severity Scale Last Done: 08/23/23 06:07
[2023-08-23 06:10] LABS: Basophils Absolute Auto 0.1 X10*3/uL (0.0-0.2); Basophils Percent Auto 0.3 % (0-2); Eosinophils Absolute Auto 0.1 X10*3/uL (0.0-0.4); Eosinophils Percent Auto 0.6 % (0-4); Hematocrit 38.2 % (37.0-47.0); Hemoglobin 12.4 g/dl (12.0-16.0); Imm Gran Abs Auto 0.11 X10*3/uL (0.00-0.03); Imm Gran Pct Auto 0.6 % (0.0-0.4); Lymphocytes Absolute Auto 1.6 X10*3/uL (1.2-4.9); Lymphocytes Percent Auto 9.3 % (20-40); Mean Corpuscular HGB Conc 32.5 g/dl (31.0-35.0); Mean Corpuscular Hemoglobin 25.2 pg (27.0-33.0); Mean Corpuscular Volume 77.6 fL (80.0-98.0); Mean Platelet Volume 9.5 fL (9.4-12.3); Monocytes Absolute Auto 0.6 X10*3/uL (0.1-1.2); Monocytes Percent Auto 3.3 % (2-11); Neutrophils Percent Auto 85.9 % (45-73); Platelet Count 514 X10*3/uL (160-400); Red Blood Count 4.92 X10*6/uL (4.20-5.50); White Blood Count 17.5 X10*3/uL (4.8-10.8)
[2023-08-23 06:33] LABS: Alanine Aminotransferase 16 U/L (0-31); Albumin Level 4.3 g/dL (3.5-5.0); Alkaline Phosphatase 88 U/L (39-117); Anion Gap 12 (12-20); Aspartate Amino Transferase 15 U/L (5-31); Bilirubin Direct 0.2 mg/dL (0.0-0.5); Bilirubin Total 0.4 mg/dL (0.0-1.0); Blood Urea Nitrogen 11 mg/dL (9-16); Calcium 9.6 mg/dL (8.4-10.2); Carbon Dioxide 25 mmol/L (22-29); Chloride 106 mmol/L (96-108); Creatinine Clr Calc Pharmacy 121.6; Estimated Glomerular Filt Rate > 60; Ethanol < 10 mg/dL; Glucose Random 127 mg/dL (60-115); Lipase 17 U/L (8-78); Magnesium 1.9 mg/dL (1.6-2.6); Potassium 3.8 mmol/L (3.3-5.1); Sodium 139 mmol/L (135-145); Total Protein 8.1 g/dL (6.5-8.0)
[2023-08-23 06:42] LABS: Influenza A PCR NEGATIVE (Negative); Influenza B PCR NEGATIVE (Negative); Resp Syncy Virus RNA Qual PCR NEGATIVE (Negative); SARS COV2 PCR INHOUSE NEGATIVE (Negative)
[2023-08-23 07:46] VITALS: BP 97/52; PULSE 80; RESP 17; TEMP 36.7; O2SAT 100
--- NOTE | 2023-08-23 08:22 | PC.NURSE ---
patient resting quietly in room, awaiting results from ultrasound. plan for patient to be moved to pod pending results of ultrasound - patient observer remains in place for patient safety.
[2023-08-23 08:44] VITALS: BP 117/58; PULSE 100; RESP 18; O2SAT 98
[2023-08-23 08:55] LABS: MANUAL DIFF FLAG NO
[2023-08-23 08:57] LABS: Basophils Absolute Auto 0.1 X10*3/uL (0.0-0.2); Basophils Percent Auto 0.3 % (0-2); Eosinophils Percent Auto 0.2 % (0-4); Hematocrit 37.9 % (37.0-47.0); Hemoglobin 12.1 g/dl (12.0-16.0); Imm Gran Pct Auto 0.6 % (0.0-0.4); Lymphocytes Absolute Auto 2.4 X10*3/uL (1.2-4.9); Lymphocytes Percent Auto 13.7 % (20-40); Mean Corpuscular HGB Conc 31.9 g/dl (31.0-35.0); Mean Corpuscular Hemoglobin 24.7 pg (27.0-33.0); Mean Corpuscular Volume 77.3 fL (80.0-98.0); Mean Platelet Volume 9.4 fL (9.4-12.3); Monocytes Absolute Auto 0.6 X10*3/uL (0.1-1.2); Monocytes Percent Auto 3.6 % (2-11); Neutrophils Absolute Auto 14.4 x10*3/uL (2.0-8.3); Neutrophils Percent Auto 81.6 % (45-73); Platelet Count 466 X10*3/uL (160-400); Red Cell Distribution Width 13.9 % (11.0-16.0); White Blood Count 17.7 X10*3/uL (4.8-10.8)
--- NOTE | 2023-08-23 09:00 | PC.NURSE ---
patient complaining of dizziness to patient observer, vss. ambulated with steady gait to the bathroom to provide urine sample. repeat cbc obtained
[2023-08-23 09:07] LABS: Appearance Urine Cloudy; Color Urine Dark Yellow; Glucose Urine UA Negative (Negative); Leukocyte Esterase Urine Moderate (2+) (Negative); Nitrite Urine Negative (Negative); Specific Gravity - Urine 1.025 (1.005-1.025); UMIC TRIGGER UACC YES; Urine Blood Small (1+) (Negative); Urine Ketones Trace mg/dL (Negative); Urine Protein Trace mg/dL (Neg-Trace)
[2023-08-23 09:08] LABS: UPreg QC Valid YES; Urine Pregnancy NEGATIVE (NEGATIVE)
[2023-08-23 09:19] LABS: Bacteria Urine 3+ (None Seen); Squamous Epithelial Cell Urine >20 /HPF (0-2); UACC Culture Trigger YES
[2023-08-23 09:22] LABS: Amphetamine Screen Urine Not Detected (Not Detect); Barbiturates, Urine Not Detected (Not Detect); Benzodiazepines Screen Urine Not Detected (Not Detect); Cannabinoid Screen Urine POSITIVE (Not Detect); Cocaine Screen Urine POSITIVE (Not Detect); Fentanyl, urine Not Detected (Not Detect); Opiate Screen Urine Not Detected (Not Detect); Phencyclidine Screen Urine Not Detected (Not Detect)
[2023-08-23] MEDS: 0.9 % Sodium Chloride 1,000 ML 999 ML IVCONT (09:28)
--- NOTE | 2023-08-23 09:29 | PC.NURSE ---
repeat cbc continues to show elevated wbc. IV established, labs drawn and sent. fluids infusing at this time. awaiting ct scan
[2023-08-23 09:45] LABS: Lactic Acid 0.7 mmol/L (0.5-2.0)
[2023-08-23] MEDS: iohexoL 350 MG/ML 100 ML INFUS..BTL 85 ML IV (09:53)
[2023-08-23 10:52] VITALS: BP 117/64; PULSE 79; RESP 18; TEMP 36.9; O2SAT 98
[2023-08-23] MEDS: Acetaminophen 325 MG TABLET 650 MG PO ×2 (12:49→20:54)
--- NOTE | 2023-08-23 15:38 | PC.NURSE ---
requesting medication for her abd pain, this RN requested Maalox from MD Perez, awaiting orders.
--- NOTE | 2023-08-23 16:18 | PC.NURSE ---
nurse to nurse report given to M3 RN
[2023-08-23 17:08] VITALS: BP 119/67; PULSE 76; RESP 18; TEMP 36.5; O2SAT 97
[2023-08-23] MEDS: Omeprazole 20 MG CAPSULE.DR PO (17:13)
[2023-08-23] MEDS: clonazePAM 0.5 MG TABLET PO (17:15)
[2023-08-23 18:15] VITALS: BMI 30.1
--- NOTE | 2023-08-23 18:57 | PC.NURSE ---
Pt is on 15 min checks, skin check completed, meal for 08/23/23 and 08/24/23 done and ordered, safety tool done, will pass on to next RN
[2023-08-23] MEDS: traZODone HCL 50 MG TABLET PO (20:49)
[2023-08-23] MEDS: metFORMIN HCl 500 MG TABLET PO (20:49)
[2023-08-23] MEDS: Prazosin HCL 1 MG CAPSULE 2 MG PO (20:50)
[2023-08-23] MEDS: hydrOXYzine HCL 25 MG TABLET PO (20:50)
[2023-08-23] MEDS: OLANZapine 10 MG TABLET PO (20:50)
[2023-08-23] MEDS: Docusate Sodium 100 MG CAPSULE PO (20:50)
[2023-08-23] MEDS: Fluticasone Propionate 100 MCG BLST.W.DEV 1 PUFF INHALE (20:54)
--- NOTE | 2023-08-24 00:09 | PC.ADMIT ---
Pt is a 37 yearold female who self presented to [facility] ED via EMS reporting abdominal pain, not taking her psychiatric medication and suicidal thoughts to jump out of her house. Pt is known to [facility] and CARE Team from prior interventions. Pt was last assessed by the CARE Team on for increased panic, auditory hallucinations/ hearing voices of children and suicidal ideation with hopelessness. Pt was discharged on 07/06/23 from and completed PHP 07/11/23 to 07/26/23. Pt was referred to the CARE Team upon medical clearance for treatment recommendations. Pt states she has been struggling with her mental health for the past week; Pt has been experiencing increased in suicidal thoughts, hearing voices and feeling unsafe being alone. Precipitating Factors: Pt reports the exacerbation of her mental health complaints appear to be related to psychosocial stressors; Pt states her daughters father recently had a medical event, she has [place], she has had increase in panic attacks and not feeling medically well. Pt reports she has not been medication complaint for 5 days. Patient reported elevated anxiety and depression, reporting panic attach in the past few days. Patient reports having suicidal thoughts. Her plan was to jump out her 4th floor window. No plan reported in the hospital. Patient reports auditory hallucinations of children's voices. Patient was placed on 15 minute visual safety checks. Cooperative with nursing assessment.
[2023-08-24 07:40] VITALS: BP 97/59; PULSE 88; RESP 14; TEMP 36.2; O2SAT 99
[2023-08-24 07:41] LABS: MANUAL DIFF FLAG NO
[2023-08-24 07:49] LABS: Basophils Percent Auto 0.4 % (0-2); Eosinophils Absolute Auto 0.2 X10*3/uL (0.0-0.4); Eosinophils Percent Auto 1.6 % (0-4); Hematocrit 37.5 % (37.0-47.0); Hemoglobin 12.1 g/dl (12.0-16.0); Imm Gran Abs Auto 0.05 X10*3/uL (0.00-0.03); Imm Gran Pct Auto 0.5 % (0.0-0.4); Lymphocytes Absolute Auto 2.7 X10*3/uL (1.2-4.9); Lymphocytes Percent Auto 24.5 % (20-40); Mean Corpuscular HGB Conc 32.3 g/dl (31.0-35.0); Mean Corpuscular Hemoglobin 25.1 pg (27.0-33.0); Mean Corpuscular Volume 77.8 fL (80.0-98.0); Mean Platelet Volume 9.6 fL (9.4-12.3); Monocytes Absolute Auto 0.6 X10*3/uL (0.1-1.2); Monocytes Percent Auto 5.3 % (2-11); Neutrophils Absolute Auto 7.4 x10*3/uL (2.0-8.3); Neutrophils Percent Auto 67.7 % (45-73); Platelet Count 446 X10*3/uL (160-400); Red Blood Count 4.82 X10*6/uL (4.20-5.50)
[2023-08-24] MEDS: Fluticasone Propionate 100 MCG BLST.W.DEV 1 PUFF INHALE ×2 (08:25→20:08)
[2023-08-24] MEDS: Docusate Sodium 100 MG CAPSULE PO ×2 (08:26→20:07)
[2023-08-24] MEDS: Prazosin HCL 1 MG CAPSULE 2 MG PO ×2 (08:26→20:06)
[2023-08-24] MEDS: Sertraline HCL 100 MG TABLET PO (08:26)
[2023-08-24] MEDS: Multivitamin TABLET 1 TAB PO (08:26)
[2023-08-24] MEDS: Omeprazole 20 MG CAPSULE.DR PO ×2 (08:26→15:33)
[2023-08-24] MEDS: polyethylene glycoL 3350 17 GM POWD.PACK PO (08:26)
[2023-08-24] MEDS: Magnesium Hydrox/Alum Hydrox 30 ML ORAL.SUSP PO ×2 (09:21→19:33)
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
[2023-08-24] MEDS: hydrOXYzine HCL 25 MG TABLET PO ×2 (13:29→17:07)
[2023-08-24] MEDS: clonazePAM 0.5 MG TABLET PO (13:29)
[2023-08-24] MEDS: Ondansetron ODT 4 MG TAB.RAPDIS TRANSLINGU (14:32)
[2023-08-24] MEDS: Sucralfate 1 GM TABLET PO ×2 (15:33→20:07)
[2023-08-24 20:00] VITALS: BP 112/60; PULSE 74; RESP 16; TEMP 36.5; O2SAT 98
[2023-08-24] MEDS: traZODone HCL 50 MG TABLET PO ×2 (20:06→21:10)
[2023-08-24] MEDS: OLANZapine 10 MG TABLET PO (20:07)
[2023-08-24] MEDS: metFORMIN HCl 500 MG TABLET PO (20:07)
[2023-08-24] MEDS: Ziprasidone 20 MG CAPSULE PO (20:08)
[2023-08-25 07:50] VITALS: BP 104/49; PULSE 80; RESP 14; TEMP 36.5; O2SAT 97
[2023-08-25] MEDS: Docusate Sodium 100 MG CAPSULE PO (08:26)
[2023-08-25] MEDS: Sertraline HCL 100 MG TABLET PO (08:27)
[2023-08-25] MEDS: Multivitamin TABLET 1 TAB PO (08:27)
[2023-08-25] MEDS: Omeprazole 20 MG CAPSULE.DR PO ×2 (08:27→16:13)
[2023-08-25] MEDS: Sucralfate 1 GM TABLET PO ×4 (08:28→20:35)
[2023-08-25] MEDS: Prazosin HCL 1 MG CAPSULE 2 MG PO ×2 (08:28→20:34)
[2023-08-25] MEDS: Fluticasone Propionate 100 MCG BLST.W.DEV 1 PUFF INHALE ×2 (09:22→20:43)
[2023-08-25] MEDS: Ondansetron ODT 4 MG TAB.RAPDIS TRANSLINGU (09:23)
[2023-08-25] MEDS: clonazePAM 0.5 MG TABLET PO ×2 (10:58→13:18)
[2023-08-25] MEDS: Ziprasidone 20 MG CAPSULE PO (10:58)
[2023-08-25] MEDS: hydrOXYzine HCL 25 MG TABLET PO ×3 (13:18→20:34)
--- NOTE | 2023-08-25 14:12 | P.PNPSI_ITS ---
Subjective Subjective Date of Service: 08/25/23 Reason For Visit: SI Subjective Notes: Conditional Voluntary Interim History: Attending groups. Anxious- also trying non med approaches for same. Sleep broken. Still AH- noises. No SI today. Feels safe. No abdo pain today Review of Systems Review of Systems nil acute Mental Status Exam Mental Status Exam Narrative: Pleasant. Engaged. Hospital clothing. Fair self-care. Alert and oriented. Endorses depression, suicidal thoughts and hallucinations telling her to kill herself. That being said does feels safe and supported in the hospital setting. No delusions. Insight and judgment fair Diagnostics Vital Signs (24Hr): Vital Signs - 24 hr 08/24/23 20:00 08/25/23 07:50 Temperature 97.7 F 97.7 F Pulse Rate 74 80 Respiratory Rate 16 14 Blood Pressure 112/60 104/49 L Pulse Oximetry 98 97 Oxygen Delivery Method Room Air Room Air BMI result Body Mass Index 30.1 Labs 08/24/23 07:35 08/23/23 06:04 Labs: Laboratory Results - last 48 hr 08/24/23 07:35 WBC 11.0 H RBC 4.82 Hgb 12.1 Hct 37.5 MCV 77.8 L MCH 25.1 L MCHC 32.3 RDW 14.0 Plt Count 446 H MPV 9.6 Immature Gran % (Auto) 0.5 H Neut % (Auto) 67.7 Lymph % (Auto) 24.5 [place] % (Auto) 5.3 Eos % (Auto) 1.6 Baso % (Auto) 0.4 Lymph # (Auto) 2.7 [place] # (Auto) 0.6 Eos # (Auto) 0.2 Baso # (Auto) 0.0 Abs Immat Gran (auto) 0.05 H Absolute Neuts (auto) 7.4 Absolute Nucleated RBC 0.000 Nucleated RBC % (auto) 0.0 Imaging Radiology Impressions: ITS Impressions Abdomen Ultrasound 08/23/23 07:33 IMPRESSION: 1. Diffusely echogenic liver without focal lesion. 2. Visualized pancreas, gallbladder, CBD and right kidney is unremarkable. Abdomen/Pelvis CT 08/23/23 09:48 IMPRESSION: No acute intra-abdominal or pelvic pathology. Diverticulosis without diverticulitis. 3 mm nonobstructing right lower pole renal calculus. Enlarged fatty liver, question too small to characterize hepatic cyst(s). Fleischner guidelines were followed. Medications Medications Current Medications Acetaminophen (Acetaminophen 325 Mg Tablet) 650 mg PO Q6H PRN PRN Reason: Headache/Pain Mild Scale (1-3) Last Admin: 08/23/23 20:54 Dose: 650 mg Al Hydroxide/Mg Hydroxide (Magnesium Hydrox/Alum Hydrox 30 Ml Oral.Susp) 30 ml PO Q6H PRN PRN Reason: Heartburn/Nausea Last Admin: 08/24/23 19:33 Dose: 30 ml Albuterol Sulfate (Albuterol Sulfate 90 Mcg 8 Gm Inhaler) 1 puff INHALE RQ4H PRN PRN Reason: Wheezing Clonazepam (Clonazepam 0.5 Mg Tablet) 0.5 mg PO DAILY PRN PRN Reason: as directed Last Admin: 08/25/23 10:58 Dose: 0.5 mg Docusate Sodium (Docusate Sodium 100 Mg Capsule) 100 mg PO BID [facility] Last Admin: 08/25/23 08:26 Dose: 100 mg Fluticasone Propionate (Fluticasone Propionate 100 Mcg Blst.W.Dev) 1 puff INHALE RBID [facility] Last Admin: 08/25/23 09:22 Dose: 1 puff Hydroxyzine HCl (Hydroxyzine Hcl 25 Mg Tablet) 25 mg PO Q6H PRN PRN Reason: Anxiety Last Admin: 08/24/23 17:07 Dose: 25 mg Hydroxyzine HCl (Hydroxyzine Hcl 25 Mg Tablet) 25 mg PO QID [facility] Last Admin: 08/25/23 13:18 Dose: 25 mg Magnesium Hydroxide (Milk Of Magnesia 30 Ml Oral.Susp) 30 ml PO DAILY PRN PRN Reason: Constipation Metformin HCl (Metformin Hcl 500 Mg Tablet) 500 mg PO BEDTIME [facility] Last Admin: 08/24/23 20:07 Dose: 500 mg Multivitamins/Vitamin C (Multivitamin Tablet) 1 tab PO DAILY [facility] Last Admin: 08/25/23 08:27 Dose: 1 tab Nicotine Polacrilex (Nicotine Polacrilex 2 Mg Gum) 4 mg BUCCAL Q2H PRN PRN Reason: Nicotine Cravings Olanzapine (Olanzapine 10 Mg Tablet) 10 mg PO BEDTIME [facility] Last Admin: 08/24/23 20:07 Dose: 10 mg Omeprazole (Omeprazole 20 Mg Capsule.Dr) 20 mg PO BID@0630,1630 [facility] Last Admin: 08/25/23 08:27 Dose: 20 mg Ondansetron HCl (Ondansetron Odt 4 Mg Tab.Rapdis) 4 mg TRANSLINGU Q6H PRN PRN Reason: Nausea and Vomiting Last Admin: 08/25/23 09:23 Dose: 4 mg Polyethylene Glycol (Polyethylene Glycol 3350 17 Gm Powd.Pack) 17 gm PO DAILY [facility] Last Admin: 08/25/23 09:19 Dose: Not Given Prazosin HCl (Prazosin Hcl 1 Mg Capsule) 2 mg PO BID [facility]; Protocol Last Admin: 08/25/23 08:28 Dose: 2 mg Sertraline HCl (Sertraline Hcl 100 Mg Tablet) 100 mg PO DAILY [facility] Last Admin: 08/25/23 08:27 Dose: 100 mg Sucralfate (Sucralfate 1 Gm Tablet) 1 gm PO QIDACHS [facility] Last Admin: 08/25/23 12:26 Dose: 1 gm Trazodone HCl (Trazodone Hcl 50 Mg Tablet) 50 mg PO BEDTIME MRX1 PRN PRN Reason: Insomnia Last Admin: 08/24/23 21:10 Dose: 50 mg Trazodone HCl (Trazodone Hcl 100 Mg Tablet) 100 mg PO BEDTIME [facility] Ziprasidone (Ziprasidone 20 Mg Capsule) 20 mg PO BID PRN PRN Reason: agitation Last Admin: 08/25/23 10:58 Dose: 20 mg Allergies Allergies Allergy/AdvReac Type Severity Reaction Status Date / Time Penicillins Allergy Severe Anaphylaxis Verified 08/23/23 13:22 almond Allergy Anaphylaxis Verified 08/23/23 13:22 shrimp Allergy Anaphylaxis Verified 08/23/23 13:22 peanuts Allergy Severe Anaphylaxis Uncoded 08/23/23 13:22 Assessment & Plan Assessment & Plan (1) PTSD (post-traumatic stress disorder): Status: Acute Code(s): F43.10 - Post-traumatic stress disorder, unspecified (2) Major depression with psychotic features: Status: Acute Code(s): F32.3 - Major depressive disorder, single episode, severe with psychotic features Plan Presents with major depressive disorder and psychosis in the context of recent psychiatricocial stressors, being off medications in the context of anxiety and nausea. Experiencing command hallucinations and suicidal ideation and therefore potential danger to self. Medical workup reassuring. Will order Carafate in addition to omeprazole and maintain medications from recent discharge ie restart same , having been off them for around 3-4 days. 08/24: increase olanzapine to 15mg. Schedule atarax and prn doses too Reason for continued inpatient stay Substantial Risk for: harm to self Time Spent With Patient Time: Total time managing care of this patient today ____ minutes.
[2023-08-25 20:20] VITALS: BP 129/65; PULSE 82; RESP 16; TEMP 36.9; O2SAT 98
[2023-08-25] MEDS: Acetaminophen 325 MG TABLET 650 MG PO (20:33)
[2023-08-25] MEDS: OLANZapine 7.5 MG TABLET 15 MG PO (20:34)
[2023-08-25] MEDS: traZODone HCL 50 MG TABLET 150 MG PO (20:35)
[2023-08-25] MEDS: metFORMIN HCl 500 MG TABLET PO (20:35)
[2023-08-26] MEDS: Ondansetron ODT 4 MG TAB.RAPDIS TRANSLINGU (07:55)
[2023-08-26] MEDS: Sertraline HCL 100 MG TABLET PO (08:23)
[2023-08-26] MEDS: Fluticasone Propionate 100 MCG BLST.W.DEV 1 PUFF INHALE ×2 (08:23→21:13)
[2023-08-26] MEDS: Multivitamin TABLET 1 TAB PO (08:24)
[2023-08-26] MEDS: Omeprazole 20 MG CAPSULE.DR PO ×2 (08:24→15:41)
[2023-08-26] MEDS: hydrOXYzine HCL 25 MG TABLET PO ×6 (08:24→22:19)
[2023-08-26] MEDS: Sucralfate 1 GM TABLET PO ×4 (08:24→21:10)
[2023-08-26] MEDS: Prazosin HCL 1 MG CAPSULE 2 MG PO (08:24)
[2023-08-26 08:25] VITALS: BP 114/54; PULSE 90; RESP 16; TEMP 37.4; O2SAT 98
[2023-08-26] MEDS: clonazePAM 0.5 MG TABLET PO (10:19)
[2023-08-26] MEDS: Ziprasidone 20 MG CAPSULE PO (12:04)
--- NOTE | 2023-08-26 12:27 | MHC.CLN ---
NUTRITION CONSULT FOR ABDOMINAL ISSUES RELATED TO STRESS. REVIEW OF EMR SHOWS PATIENT NOT TAKING PSYCH MEDS PRIOR TO ADM DUE TO VOMITING. WEIGHT HX SHOWS WEIGHT GAIN TREND X 2 YEARS WITH SIGNIFICANT WEIGHT GAIN +12% X 2 MONTHS. ANTICIPATE RESOLUTION OF ABDOMINAL ISSUES WITH REDUCED STRESS/MEDS DURING PSYCH ADM.
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
[2023-08-26 20:53] VITALS: BP 116/57; PULSE 72; RESP 16; TEMP 36.8; O2SAT 98
[2023-08-26] MEDS: traZODone HCL 50 MG TABLET 150 MG PO (21:10)
[2023-08-26] MEDS: OLANZapine 7.5 MG TABLET 15 MG PO (21:10)
[2023-08-26] MEDS: Prazosin HCL 1 MG CAPSULE 3 MG PO (21:10)
[2023-08-26] MEDS: Docusate Sodium 100 MG CAPSULE PO (21:10)
[2023-08-26] MEDS: metFORMIN HCl 500 MG TABLET PO (21:10)
[2023-08-26] MEDS: Acetaminophen 325 MG TABLET 650 MG PO (22:19)
[2023-08-26] MEDS: traZODone HCL 50 MG TABLET PO (22:19)
[2023-08-27 08:16] VITALS: BP 120/56; PULSE 85; RESP 16; TEMP 36.4; O2SAT 97
[2023-08-27] MEDS: Docusate Sodium 100 MG CAPSULE PO ×2 (08:28→20:25)
[2023-08-27] MEDS: Multivitamin TABLET 1 TAB PO (08:28)
[2023-08-27] MEDS: Sucralfate 1 GM TABLET PO ×4 (08:29→20:24)
[2023-08-27] MEDS: hydrOXYzine HCL 25 MG TABLET PO ×5 (08:29→20:24)
[2023-08-27] MEDS: Prazosin HCL 1 MG CAPSULE 2 MG PO (08:29)
[2023-08-27] MEDS: Ondansetron ODT 4 MG TAB.RAPDIS TRANSLINGU (08:30)
[2023-08-27] MEDS: Omeprazole 20 MG CAPSULE.DR PO ×2 (08:30→16:58)
[2023-08-27] MEDS: Sertraline HCL 100 MG TABLET PO (08:30)
[2023-08-27] MEDS: polyethylene glycoL 3350 17 GM POWD.PACK PO (08:31)
[2023-08-27] MEDS: Fluticasone Propionate 100 MCG BLST.W.DEV 1 PUFF INHALE ×2 (08:31→20:23)
[2023-08-27] MEDS: clonazePAM 0.5 MG TABLET PO (10:22)
[2023-08-27] MEDS: Acetaminophen 325 MG TABLET 650 MG PO (10:22)
[2023-08-27] MEDS: Capsaicin 0.025% Cream 60 GM TUBE 1 APPL TOPICAL ×2 (10:23→18:47)
[2023-08-27] MEDS: Ziprasidone 20 MG CAPSULE PO ×2 (12:27→18:57)
[2023-08-27] MEDS: Sulfamethox/Trimeth 800/160 TABLET 1 TAB PO (15:39)
--- NOTE | 2023-08-27 15:39 | HO.PSYCHPN ---
Subjective Subjective Date of Service: 08/27/23 Reason For Visit: SI Interim History: calm, coopperative. nightmares and poor sleep, agrees to increase HS prazosin to 5 mg. UA results noted, antibiotics ordered for 3 days. per staff, dep/anx 10. attending groups. taking lots of PRNs. taking meds. some SI. no plan or intent. slept about 8 hours. Mental Status Exam Mental Status Exam Narrative: Pleasant. Engaged. adequately dressed and groomed. Alert and oriented. no PMA/PMR. speech nml rate and amount, nml ZANDRA. thoughts linear and logical. affect non-labile, constricted. mood anxious. no SI/HI/AVH expressed. Diagnostics Vital Signs (24Hr): Vital Signs - 24 hr 08/26/23 20:53 08/27/23 08:16 Temperature 98.2 F 97.5 F Pulse Rate 72 85 Respiratory Rate 16 16 Blood Pressure 116/57 L 120/56 L Pulse Oximetry 98 97 Oxygen Delivery Method Room Air Room Air BMI result Body Mass Index 30.1 Labs 08/24/23 07:35 08/23/23 06:04 Imaging Radiology Impressions: ITS Impressions Abdomen Ultrasound 08/23/23 07:33 IMPRESSION: 1. Diffusely echogenic liver without focal lesion. 2. Visualized pancreas, gallbladder, CBD and right kidney is unremarkable. Abdomen/Pelvis CT 08/23/23 09:48 IMPRESSION: No acute intra-abdominal or pelvic pathology. Diverticulosis without diverticulitis. 3 mm nonobstructing right lower pole renal calculus. Enlarged fatty liver, question too small to characterize hepatic cyst(s). Fleischner guidelines were followed. Medications Medications Current Medications Acetaminophen (Acetaminophen 325 Mg Tablet) 650 mg PO Q6H PRN PRN Reason: Headache/Pain Mild Scale (1-3) Last Admin: 08/27/23 10:22 Dose: 650 mg Al Hydroxide/Mg Hydroxide (Magnesium Hydrox/Alum Hydrox 30 Ml Oral.Susp) 30 ml PO Q6H PRN PRN Reason: Heartburn/Nausea Last Admin: 08/24/23 19:33 Dose: 30 ml Albuterol Sulfate (Albuterol Sulfate 90 Mcg 8 Gm Inhaler) 1 puff INHALE RQ4H PRN PRN Reason: Wheezing Capsaicin (Capsaicin 0.025% Cream 60 Gm Tube) 1 appl TOPICAL QID PRN; Protocol PRN Reason: low back pain Last Admin: 08/27/23 10:23 Dose: 1 appl Clonazepam (Clonazepam 0.5 Mg Tablet) 0.5 mg PO DAILY PRN PRN Reason: as directed Last Admin: 08/27/23 10:22 Dose: 0.5 mg Docusate Sodium (Docusate Sodium 100 Mg Capsule) 100 mg PO BID [facility] Last Admin: 08/27/23 08:28 Dose: 100 mg Fluticasone Propionate (Fluticasone Propionate 100 Mcg Blst.W.Dev) 1 puff INHALE RBID [facility] Last Admin: 08/27/23 08:31 Dose: 1 puff Hydroxyzine HCl (Hydroxyzine Hcl 25 Mg Tablet) 25 mg PO Q6H PRN PRN Reason: Anxiety Last Admin: 08/27/23 15:03 Dose: 25 mg Hydroxyzine HCl (Hydroxyzine Hcl 25 Mg Tablet) 25 mg PO QID [facility] Last Admin: 08/27/23 12:27 Dose: 25 mg Magnesium Hydroxide (Milk Of Magnesia 30 Ml Oral.Susp) 30 ml PO DAILY PRN PRN Reason: Constipation Metformin HCl (Metformin Hcl 500 Mg Tablet) 500 mg PO BEDTIME [facility] Last Admin: 08/26/23 21:10 Dose: 500 mg Multivitamins/Vitamin C (Multivitamin Tablet) 1 tab PO DAILY [facility] Last Admin: 08/27/23 08:28 Dose: 1 tab Nicotine Polacrilex (Nicotine Polacrilex 2 Mg Gum) 4 mg BUCCAL Q2H PRN PRN Reason: Nicotine Cravings Olanzapine (Olanzapine 7.5 Mg Tablet) 15 mg PO BEDTIME [facility] Last Admin: 08/26/23 21:10 Dose: 15 mg Omeprazole (Omeprazole 20 Mg Capsule.Dr) 20 mg PO BID@0630,1630 [facility] Last Admin: 08/27/23 08:30 Dose: 20 mg Ondansetron HCl (Ondansetron Odt 4 Mg Tab.Rapdis) 4 mg TRANSLINGU Q6H PRN PRN Reason: Nausea and Vomiting Last Admin: 08/27/23 08:30 Dose: 4 mg Polyethylene Glycol (Polyethylene Glycol 3350 17 Gm Powd.Pack) 17 gm PO DAILY [facility] Last Admin: 08/27/23 08:31 Dose: 17 gm Prazosin HCl (Prazosin Hcl 1 Mg Capsule) 2 mg PO DAILY [facility]; Protocol Last Admin: 08/27/23 08:29 Dose: 2 mg Prazosin HCl (Prazosin Hcl 5 Mg Capsule) 5 mg PO BEDTIME [facility]; Protocol Sertraline HCl (Sertraline Hcl 100 Mg Tablet) 100 mg PO DAILY [facility] Last Admin: 08/27/23 08:30 Dose: 100 mg Sucralfate (Sucralfate 1 Gm Tablet) 1 gm PO QIDACHS [facility] Last Admin: 08/27/23 12:27 Dose: 1 gm Trazodone HCl (Trazodone Hcl 50 Mg Tablet) 50 mg PO BEDTIME MRX1 PRN PRN Reason: Insomnia Last Admin: 08/26/23 22:19 Dose: 50 mg Trazodone HCl (Trazodone Hcl 50 Mg Tablet) 150 mg PO BEDTIME [facility] Last Admin: 08/26/23 21:10 Dose: 150 mg Trimethoprim/Sulfamethoxazole (Sulfamethox/Trimeth 800/160 Tablet) 1 tab PO Q12H [facility] Stop: 08/30/23 14:14 Ziprasidone (Ziprasidone 20 Mg Capsule) 20 mg PO BID PRN PRN Reason: agitation Last Admin: 08/27/23 12:27 Dose: 20 mg Allergies Allergies Allergy/AdvReac Type Severity Reaction Status Date / Time Penicillins Allergy Severe Anaphylaxis Verified 08/23/23 13:22 almond Allergy Anaphylaxis Verified 08/23/23 13:22 shrimp Allergy Anaphylaxis Verified 08/23/23 13:22 peanuts Allergy Severe Anaphylaxis Uncoded 08/23/23 13:22 Assessment & Plan Assessment & Plan (1) PTSD (post-traumatic stress disorder): Status: Acute Code(s): F43.10 - Post-traumatic stress disorder, unspecified (2) Major depression with psychotic features: Status: Acute Code(s): F32.3 - Major depressive disorder, single episode, severe with psychotic features Plan Presents with major depressive disorder and psychosis in the context of recent psychiatricocial stressors, being off medications in the context of anxiety and nausea. Experiencing command hallucinations and suicidal ideation and therefore potential danger to self. Medical workup reassuring. Will order Carafate in addition to omeprazole and maintain medications from recent discharge ie restart same , having been off them for around 3-4 days. 08/24: increase olanzapine to 15mg. Schedule atarax and prn doses too. 08/25: increase prazosin to 3 mg. encouraged to use geodon PRNs. anxious, tearful. c/o trauma nightmares. 08/26: calm, cooperative. poor sleep with nightmares, increase prazosin to 5 QHS. continue morning prazosin of 2 mg. Reason for continued inpatient stay Substantial Risk for: harm to self, inability to function and rapid decompensation Time Spent With Patient Time: Total time managing care of this patient today __25__ minutes.
[2023-08-27 20:15] VITALS: BP 120/57; PULSE 68; RESP 16; TEMP 36.7; O2SAT 100
[2023-08-27] MEDS: OLANZapine 7.5 MG TABLET 15 MG PO (20:23)
[2023-08-27] MEDS: traZODone HCL 50 MG TABLET 150 MG PO (20:24)
[2023-08-27] MEDS: metFORMIN HCl 500 MG TABLET PO (20:25)
[2023-08-27] MEDS: Prazosin HCL 5 MG CAPSULE PO (20:25)
[2023-08-27] MEDS: traZODone HCL 50 MG TABLET PO (21:18)
[2023-08-28] MEDS: Sulfamethox/Trimeth 800/160 TABLET 1 TAB PO ×2 (05:02→14:10)
[2023-08-28 08:47] VITALS: BP 117/53; PULSE 73; RESP 14; TEMP 37.1; O2SAT 97
[2023-08-28] MEDS: Omeprazole 20 MG CAPSULE.DR PO ×2 (09:13→16:48)
[2023-08-28] MEDS: Docusate Sodium 100 MG CAPSULE PO ×2 (09:15→19:57)
[2023-08-28] MEDS: Prazosin HCL 1 MG CAPSULE 2 MG PO (09:15)
[2023-08-28] MEDS: Multivitamin TABLET 1 TAB PO (09:16)
[2023-08-28] MEDS: Sucralfate 1 GM TABLET PO ×4 (09:16→19:58)
[2023-08-28] MEDS: hydrOXYzine HCL 25 MG TABLET PO ×3 (09:16→18:33)
[2023-08-28] MEDS: polyethylene glycoL 3350 17 GM POWD.PACK PO (09:16)
[2023-08-28] MEDS: Sertraline HCL 100 MG TABLET PO (09:31)
[2023-08-28] MEDS: Fluticasone Propionate 100 MCG BLST.W.DEV 1 PUFF INHALE ×2 (09:34→19:59)
[2023-08-28] MEDS: Capsaicin 0.025% Cream 60 GM TUBE 1 APPL TOPICAL ×3 (09:34→19:59)
[2023-08-28] MEDS: clonazePAM 0.5 MG TABLET PO (11:18)
[2023-08-28 13:04] LABS: Influenza A PCR NEGATIVE (Negative); Influenza B PCR NEGATIVE (Negative); Resp Syncy Virus RNA Qual PCR NEGATIVE (Negative); SARS COV2 PCR INHOUSE NEGATIVE (Negative)
[2023-08-28] MEDS: Ziprasidone 20 MG CAPSULE PO (14:10)
--- NOTE | 2023-08-28 15:01 | P.PNPSI_ITS ---
Subjective Subjective Date of Service: 08/28/23 Reason For Visit: SI Interim History: reports she is feeling manic and sad at the same time. reports anxiety has improved a bit. still struggling with sleep and nightmares, agrees to increase HS prazosin to 6 mg and HS olanzapine to 20 mg. also agrees to increase zoloft from 100 to 150 mg as of tomorrow for depression and anxiety. per staff, dep 10 anx 8. visible, bad dreams. anxious and mad. using lots of PRNs. +AH. + nightmares. slept about 4 hours. Mental Status Exam Mental Status Exam Narrative: Pleasant. Engaged. adequately dressed and groomed. Alert and oriented. no PMA/PMR. speech nml rate and amount, nml ZANDRA. thoughts linear and logical. affect non-labile, constricted. mood manic and sad at the same time. no SI/HI/AVH expressed. Diagnostics Vital Signs (24Hr): Vital Signs - 24 hr 08/27/23 20:15 08/28/23 08:47 Temperature 98.1 F 98.8 F Pulse Rate 68 73 Respiratory Rate 16 14 Blood Pressure 120/57 L 117/53 L Pulse Oximetry 100 97 Oxygen Delivery Method Room Air Room Air BMI result Body Mass Index 30.1 Labs 08/24/23 07:35 08/23/23 06:04 Labs: Laboratory Results - last 48 hr 08/28/23 11:00 Influenza Type A (PCR) NEGATIVE Influenza Type B (PCR) NEGATIVE RSV RNA Qual (PCR) NEGATIVE SARS-CoV-2 RNA (RT-PCR) NEGATIVE Imaging Radiology Impressions: ITS Impressions Abdomen Ultrasound 08/23/23 07:33 IMPRESSION: 1. Diffusely echogenic liver without focal lesion. 2. Visualized pancreas, gallbladder, CBD and right kidney is unremarkable. Abdomen/Pelvis CT 08/23/23 09:48 IMPRESSION: No acute intra-abdominal or pelvic pathology. Diverticulosis without diverticulitis. 3 mm nonobstructing right lower pole renal calculus. Enlarged fatty liver, question too small to characterize hepatic cyst(s). Fleischner guidelines were followed. Medications Medications Current Medications Acetaminophen (Acetaminophen 325 Mg Tablet) 650 mg PO Q6H PRN PRN Reason: Headache/Pain Mild Scale (1-3) Last Admin: 08/27/23 10:22 Dose: 650 mg Al Hydroxide/Mg Hydroxide (Magnesium Hydrox/Alum Hydrox 30 Ml Oral.Susp) 30 ml PO Q6H PRN PRN Reason: Heartburn/Nausea Last Admin: 08/24/23 19:33 Dose: 30 ml Albuterol Sulfate (Albuterol Sulfate 90 Mcg 8 Gm Inhaler) 1 puff INHALE RQ4H PRN PRN Reason: Wheezing Capsaicin (Capsaicin 0.025% Cream 60 Gm Tube) 1 appl TOPICAL QID PRN; Protocol PRN Reason: low back pain Last Admin: 08/28/23 14:10 Dose: 1 appl Clonazepam (Clonazepam 0.5 Mg Tablet) 0.5 mg PO DAILY PRN PRN Reason: as directed Last Admin: 08/28/23 11:18 Dose: 0.5 mg Docusate Sodium (Docusate Sodium 100 Mg Capsule) 100 mg PO BID [facility] Last Admin: 08/28/23 09:15 Dose: 100 mg Fluticasone Propionate (Fluticasone Propionate 100 Mcg Blst.W.Dev) 1 puff INHALE RBID [facility] Last Admin: 08/28/23 09:34 Dose: 1 puff Hydroxyzine HCl (Hydroxyzine Hcl 25 Mg Tablet) 25 mg PO Q6H PRN PRN Reason: Anxiety Last Admin: 08/28/23 11:18 Dose: 25 mg Magnesium Hydroxide (Milk Of Magnesia 30 Ml Oral.Susp) 30 ml PO DAILY PRN PRN Reason: Constipation Metformin HCl (Metformin Hcl 500 Mg Tablet) 500 mg PO BEDTIME [facility] Last Admin: 08/27/23 20:25 Dose: 500 mg Multivitamins/Vitamin C (Multivitamin Tablet) 1 tab PO DAILY [facility] Last Admin: 08/28/23 09:16 Dose: 1 tab Nicotine Polacrilex (Nicotine Polacrilex 2 Mg Gum) 4 mg BUCCAL Q2H PRN PRN Reason: Nicotine Cravings Olanzapine (Olanzapine 10 Mg Tablet) 20 mg PO BEDTIME [facility] Omeprazole (Omeprazole 20 Mg Capsule.Dr) 20 mg PO BID@0630,1630 [facility] Last Admin: 08/28/23 09:13 Dose: 20 mg Ondansetron HCl (Ondansetron Odt 4 Mg Tab.Rapdis) 4 mg TRANSLINGU Q6H PRN PRN Reason: Nausea and Vomiting Last Admin: 08/27/23 08:30 Dose: 4 mg Polyethylene Glycol (Polyethylene Glycol 3350 17 Gm Powd.Pack) 17 gm PO DAILY [facility] Last Admin: 08/28/23 09:16 Dose: 17 gm Prazosin HCl (Prazosin Hcl 1 Mg Capsule) 2 mg PO DAILY [facility]; Protocol Last Admin: 08/28/23 09:15 Dose: 2 mg Prazosin HCl (Prazosin Hcl 1 Mg Capsule) 6 mg PO BEDTIME [facility]; Protocol Sertraline HCl (Sertraline Hcl 50 Mg Tablet) 150 mg PO DAILY [facility] Sucralfate (Sucralfate 1 Gm Tablet) 1 gm PO QIDACHS [facility] Last Admin: 08/28/23 11:18 Dose: 1 gm Trazodone HCl (Trazodone Hcl 50 Mg Tablet) 50 mg PO BEDTIME MRX1 PRN PRN Reason: Insomnia Last Admin: 08/27/23 21:18 Dose: 50 mg Trazodone HCl (Trazodone Hcl 50 Mg Tablet) 150 mg PO BEDTIME [facility] Last Admin: 08/27/23 20:24 Dose: 150 mg Trimethoprim/Sulfamethoxazole (Sulfamethox/Trimeth 800/160 Tablet) 1 tab PO Q12H [facility] Stop: 08/30/23 14:14 Last Admin: 08/28/23 14:10 Dose: 1 tab Ziprasidone (Ziprasidone 20 Mg Capsule) 20 mg PO BID PRN PRN Reason: agitation Last Admin: 08/28/23 14:10 Dose: 20 mg Allergies Allergies Allergy/AdvReac Type Severity Reaction Status Date / Time Penicillins Allergy Severe Anaphylaxis Verified 08/23/23 13:22 almond Allergy Anaphylaxis Verified 08/23/23 13:22 shrimp Allergy Anaphylaxis Verified 08/23/23 13:22 peanuts Allergy Severe Anaphylaxis Uncoded 08/23/23 13:22 Assessment & Plan Assessment & Plan (1) PTSD (post-traumatic stress disorder): Status: Acute Code(s): F43.10 - Post-traumatic stress disorder, unspecified (2) Major depression with psychotic features: Status: Acute Code(s): F32.3 - Major depressive disorder, single episode, severe with psychotic features Plan Presents with major depressive disorder and psychosis in the context of recent psychiatricocial stressors, being off medications in the context of anxiety and nausea. Experiencing command hallucinations and suicidal ideation and therefore potential danger to self. Medical workup reassuring. Will order Carafate in addition to omeprazole and maintain medications from recent discharge ie restart same , having been off them for around 3-4 days. 08/24: increase olanzapine to 15mg. Schedule atarax and prn doses too. 08/25: increase prazosin to 3 mg. encouraged to use geodon PRNs. anxious, tearful. c/o trauma nightmares. 08/26: calm, cooperative. poor sleep with nightmares, increase prazosin to 5 QHS. continue morning prazosin of 2 mg. 08/27: stable presentation. nightmares and insomnia continue. prazosin increased to 6 mg QHS, olanzapine increased to 20 mg QHS. sertraline increased to 150 mg for depression and anxiety. Reason for continued inpatient stay Substantial Risk for: inability to function and rapid decompensation Time Spent With Patient Time: Total time managing care of this patient today __ 25__ minutes.
[2023-08-28] MEDS: Ondansetron ODT 4 MG TAB.RAPDIS TRANSLINGU (19:26)
[2023-08-28 19:48] VITALS: BP 121/58; PULSE 96; RESP 18; TEMP 36.9; O2SAT 99
[2023-08-28] MEDS: OLANZapine 10 MG TABLET 20 MG PO (19:57)
[2023-08-28] MEDS: traZODone HCL 50 MG TABLET 150 MG PO (19:57)
[2023-08-28] MEDS: metFORMIN HCl 500 MG TABLET PO (19:57)
[2023-08-28] MEDS: Prazosin HCL 1 MG CAPSULE 6 MG PO (19:58)
[2023-08-28] MEDS: Acetaminophen 325 MG TABLET 650 MG PO (21:25)
[2023-08-28] MEDS: traZODone HCL 50 MG TABLET PO (21:25)
[2023-08-29] MEDS: Ondansetron ODT 4 MG TAB.RAPDIS TRANSLINGU ×2 (01:35→21:31)
[2023-08-29] MEDS: Omeprazole 20 MG CAPSULE.DR PO ×2 (06:01→17:30)
[2023-08-29] MEDS: Sulfamethox/Trimeth 800/160 TABLET 1 TAB PO ×2 (06:01→18:59)
[2023-08-29 07:00] VITALS: BMI 29.3
[2023-08-29 08:10] VITALS: BP 118/56; PULSE 87; RESP 16; TEMP 37.2; O2SAT 96
[2023-08-29] MEDS: Fluticasone Propionate 100 MCG BLST.W.DEV 1 PUFF INHALE ×2 (08:16→20:22)
[2023-08-29] MEDS: polyethylene glycoL 3350 17 GM POWD.PACK PO (08:17)
[2023-08-29] MEDS: Sertraline HCL 50 MG TABLET 150 MG PO (08:19)
[2023-08-29] MEDS: Sucralfate 1 GM TABLET PO ×4 (08:19→20:24)
[2023-08-29] MEDS: Docusate Sodium 100 MG CAPSULE PO ×2 (08:20→20:22)
[2023-08-29] MEDS: Prazosin HCL 1 MG CAPSULE 2 MG PO (08:20)
[2023-08-29] MEDS: Multivitamin TABLET 1 TAB PO (08:20)
[2023-08-29] MEDS: hydrOXYzine HCL 25 MG TABLET PO ×2 (11:32→17:31)
[2023-08-29 11:58] LABS: Appearance Urine Cloudy; Color Urine Yellow; Glucose Urine UA Negative (Negative); Leukocyte Esterase Urine Trace (Negative); Nitrite Urine Negative (Negative); Specific Gravity - Urine 1.015 (1.005-1.025); UMIC TRIGGER UACC YES; Urine Blood Trace (Negative); Urine Ketones Negative (Negative); Urine Protein Negative (Neg-Trace)
[2023-08-29] MEDS: Capsaicin 0.025% Cream 60 GM TUBE 1 APPL TOPICAL ×2 (11:58→19:00)
[2023-08-29 12:01] LABS: Bacteria Urine 2+ (None Seen); Hyaline Casts Urine 0-2 /LPF (0-2); Squamous Epithelial Cell Urine >20 /HPF (0-2); UACC Culture Trigger YES
[2023-08-29] MEDS: clonazePAM 0.5 MG TABLET PO (14:08)
--- NOTE | 2023-08-29 15:33 | P.PNPSI_ITS ---
Subjective Subjective Date of Service: 08/29/23 Reason For Visit: SI Interim History: slept well, no nightmares. c/o dysuria, will collect second U/A. susceptibilities from initial U/A reviewed, bactrim should work. prt staff, taking meds. attended 1 group last night. quiet, pleasant. +AH. c/o back pain. slept about 8 hours. Mental Status Exam Mental Status Exam Narrative: Pleasant. Engaged. adequately dressed and groomed. Alert and oriented. no PMA/PMR. speech nml rate and amount, nml ZANDRA. thoughts linear and logical. affect non-labile, constricted. mood improved. no SI/HI/AVH expressed. Diagnostics Vital Signs (24Hr): Vital Signs - 24 hr 08/28/23 19:48 08/29/23 08:10 Temperature 98.4 F 99.0 F Pulse Rate 96 87 Respiratory Rate 18 16 Blood Pressure 121/58 L 118/56 L Pulse Oximetry 99 96 Oxygen Delivery Method Room Air Room Air BMI result Body Mass Index 29.3 Labs 08/24/23 07:35 08/23/23 06:04 Labs: Laboratory Results - last 48 hr 08/28/23 08/29/23 11:00 11:49 Urine Color Yellow Urine Appearance Cloudy Urine pH 7.0 Ur Specific Lee 1.015 Urine Protein Negative Urine Glucose (UA) Negative Urine Ketones Negative Urine Blood Trace H Urine Nitrite Negative Ur Leukocyte Esterase Trace H Urine RBC 11-20 H Urine WBC 6-10 H Ur Squamous Epith Cells >20 Urine Bacteria 2+ Hyaline Casts 0-2 Influenza Type A (PCR) NEGATIVE Influenza Type B (PCR) NEGATIVE RSV RNA Qual (PCR) NEGATIVE SARS-CoV-2 RNA (RT-PCR) NEGATIVE Imaging Radiology Impressions: ITS Impressions Abdomen Ultrasound 08/23/23 07:33 IMPRESSION: 1. Diffusely echogenic liver without focal lesion. 2. Visualized pancreas, gallbladder, CBD and right kidney is unremarkable. Abdomen/Pelvis CT 08/23/23 09:48 IMPRESSION: No acute intra-abdominal or pelvic pathology. Diverticulosis without diverticulitis. 3 mm nonobstructing right lower pole renal calculus. Enlarged fatty liver, question too small to characterize hepatic cyst(s). Fleischner guidelines were followed. Medications Medications Current Medications Acetaminophen (Acetaminophen 325 Mg Tablet) 650 mg PO Q6H PRN PRN Reason: Headache/Pain Mild Scale (1-3) Last Admin: 08/28/23 21:25 Dose: 650 mg Al Hydroxide/Mg Hydroxide (Magnesium Hydrox/Alum Hydrox 30 Ml Oral.Susp) 30 ml PO Q6H PRN PRN Reason: Heartburn/Nausea Last Admin: 08/24/23 19:33 Dose: 30 ml Albuterol Sulfate (Albuterol Sulfate 90 Mcg 8 Gm Inhaler) 1 puff INHALE RQ4H PRN PRN Reason: Wheezing Capsaicin (Capsaicin 0.025% Cream 60 Gm Tube) 1 appl TOPICAL QID PRN; Protocol PRN Reason: low back pain Last Admin: 08/29/23 11:58 Dose: 1 appl Clonazepam (Clonazepam 0.5 Mg Tablet) 0.5 mg PO DAILY PRN PRN Reason: as directed Last Admin: 08/29/23 14:08 Dose: 0.5 mg Docusate Sodium (Docusate Sodium 100 Mg Capsule) 100 mg PO BID [facility] Last Admin: 08/29/23 08:20 Dose: 100 mg Fluticasone Propionate (Fluticasone Propionate 100 Mcg Blst.W.Dev) 1 puff INHALE RBID [facility] Last Admin: 08/29/23 08:16 Dose: 1 puff Hydroxyzine HCl (Hydroxyzine Hcl 25 Mg Tablet) 25 mg PO Q6H PRN PRN Reason: Anxiety Last Admin: 08/29/23 11:32 Dose: 25 mg Magnesium Hydroxide (Milk Of Magnesia 30 Ml Oral.Susp) 30 ml PO DAILY PRN PRN Reason: Constipation Metformin HCl (Metformin Hcl 500 Mg Tablet) 500 mg PO BEDTIME [facility] Last Admin: 08/28/23 19:57 Dose: 500 mg Multivitamins/Vitamin C (Multivitamin Tablet) 1 tab PO DAILY [facility] Last Admin: 08/29/23 08:20 Dose: 1 tab Nicotine Polacrilex (Nicotine Polacrilex 2 Mg Gum) 4 mg BUCCAL Q2H PRN PRN Reason: Nicotine Cravings Olanzapine (Olanzapine 10 Mg Tablet) 20 mg PO BEDTIME [facility] Last Admin: 08/28/23 19:57 Dose: 20 mg Omeprazole (Omeprazole 20 Mg Capsule.Dr) 20 mg PO BID@0630,1630 [facility] Last Admin: 08/29/23 06:01 Dose: 20 mg Ondansetron HCl (Ondansetron Odt 4 Mg Tab.Rapdis) 4 mg TRANSLINGU Q6H PRN PRN Reason: Nausea and Vomiting Last Admin: 08/29/23 01:35 Dose: 4 mg Polyethylene Glycol (Polyethylene Glycol 3350 17 Gm Powd.Pack) 17 gm PO DAILY [facility] Last Admin: 08/29/23 08:17 Dose: 17 gm Prazosin HCl (Prazosin Hcl 1 Mg Capsule) 2 mg PO DAILY [facility]; Protocol Last Admin: 08/29/23 08:20 Dose: 2 mg Prazosin HCl (Prazosin Hcl 1 Mg Capsule) 6 mg PO BEDTIME [facility]; Protocol Last Admin: 08/28/23 19:58 Dose: 6 mg Sertraline HCl (Sertraline Hcl 50 Mg Tablet) 150 mg PO DAILY [facility] Last Admin: 08/29/23 08:19 Dose: 150 mg Sucralfate (Sucralfate 1 Gm Tablet) 1 gm PO QIDACHS [facility] Last Admin: 08/29/23 11:32 Dose: 1 gm Trazodone HCl (Trazodone Hcl 50 Mg Tablet) 50 mg PO BEDTIME MRX1 PRN PRN Reason: Insomnia Last Admin: 08/28/23 21:25 Dose: 50 mg Trazodone HCl (Trazodone Hcl 50 Mg Tablet) 150 mg PO BEDTIME [facility] Last Admin: 08/28/23 19:57 Dose: 150 mg Trimethoprim/Sulfamethoxazole (Sulfamethox/Trimeth 800/160 Tablet) 1 tab PO Q12H [facility] Last Admin: 08/29/23 06:01 Dose: 1 tab Ziprasidone (Ziprasidone 20 Mg Capsule) 20 mg PO BID PRN PRN Reason: agitation Last Admin: 08/28/23 14:10 Dose: 20 mg Allergies Allergies Allergy/AdvReac Type Severity Reaction Status Date / Time Penicillins Allergy Severe Anaphylaxis Verified 08/23/23 13:22 almond Allergy Anaphylaxis Verified 08/23/23 13:22 shrimp Allergy Anaphylaxis Verified 08/23/23 13:22 peanuts Allergy Severe Anaphylaxis Uncoded 08/23/23 13:22 Assessment & Plan Assessment & Plan (1) PTSD (post-traumatic stress disorder): Status: Acute Code(s): F43.10 - Post-traumatic stress disorder, unspecified (2) Major depression with psychotic features: Status: Acute Code(s): F32.3 - Major depressive disorder, single episode, severe with psychotic features Plan Presents with major depressive disorder and psychosis in the context of recent psychiatricocial stressors, being off medications in the context of anxiety and nausea. Experiencing command hallucinations and suicidal ideation and therefore potential danger to self. Medical workup reassuring. Will order Carafate in addition to omeprazole and maintain medications from recent discharge ie restart same , having been off them for around 3-4 days. 08/24: increase olanzapine to 15mg. Schedule atarax and prn doses too. 08/25: increase prazosin to 3 mg. encouraged to use geodon PRNs. anxious, tearful. c/o trauma nightmares. 08/26: calm, cooperative. poor sleep with nightmares, increase prazosin to 5 QHS. continue morning prazosin of 2 mg. 08/27: stable presentation. nightmares and insomnia continue. prazosin increased to 6 mg QHS, olanzapine increased to 20 mg QHS. sertraline increased to 150 mg for depression and anxiety. 08/28: slept well, no nightmares last night. happy with current regimen. continue current mgmt. Reason for continued inpatient stay Substantial Risk for: harm to self, inability to function and rapid decompensation Time Spent With Patient Time: Total time managing care of this patient today __25__ minutes.
[2023-08-29 20:15] VITALS: BP 123/67; PULSE 82; RESP 18; TEMP 36.8; O2SAT 100
[2023-08-29] MEDS: metFORMIN HCl 500 MG TABLET PO (20:22)
[2023-08-29] MEDS: OLANZapine 10 MG TABLET 20 MG PO (20:23)
[2023-08-29] MEDS: Prazosin HCL 1 MG CAPSULE 6 MG PO (20:24)
[2023-08-29] MEDS: traZODone HCL 50 MG TABLET PO ×2 (20:25→21:30)
[2023-08-29] MEDS: traZODone HCL 50 MG TABLET 150 MG PO (20:25)
[2023-08-29] MEDS: Ziprasidone 20 MG CAPSULE PO (20:25)
[2023-08-29] MEDS: Magnesium Hydrox/Alum Hydrox 30 ML ORAL.SUSP PO (20:29)
[2023-08-29] MEDS: Acetaminophen 325 MG TABLET 650 MG PO (20:43)
[2023-08-30] MEDS: Omeprazole 20 MG CAPSULE.DR PO ×2 (06:48→16:47)
[2023-08-30 07:58] VITALS: BP 113/53; PULSE 77; RESP 18; TEMP 36.8; O2SAT 96
[2023-08-30] MEDS: polyethylene glycoL 3350 17 GM POWD.PACK PO (08:01)
[2023-08-30] MEDS: Sertraline HCL 50 MG TABLET 150 MG PO (08:02)
[2023-08-30] MEDS: Fluticasone Propionate 100 MCG BLST.W.DEV 1 PUFF INHALE ×2 (08:03→20:28)
[2023-08-30] MEDS: Multivitamin TABLET 1 TAB PO (08:03)
[2023-08-30] MEDS: Sucralfate 1 GM TABLET PO ×4 (08:03→20:28)
[2023-08-30] MEDS: Prazosin HCL 1 MG CAPSULE 2 MG PO (08:03)
[2023-08-30] MEDS: Docusate Sodium 100 MG CAPSULE PO ×2 (08:03→20:28)
[2023-08-30] MEDS: Sulfamethox/Trimeth 800/160 TABLET 1 TAB PO ×3 (08:03→20:28)
[2023-08-30] MEDS: Acetaminophen 325 MG TABLET 650 MG PO (08:09)
[2023-08-30 08:54] LABS: COVID-19 Test Negative (Negative); IDNOW Serial# 152EDE1D
[2023-08-30 08:58] LABS: Creatinine Clr Calc Pharmacy 96.8; Estimated Glomerular Filt Rate > 60
[2023-08-30] MEDS: hydrOXYzine HCL 25 MG TABLET PO ×2 (10:38→14:51)
[2023-08-30] MEDS: clonazePAM 0.5 MG TABLET PO (14:02)
[2023-08-30] MEDS: Capsaicin 0.025% Cream 60 GM TUBE 1 APPL TOPICAL (14:03)
--- NOTE | 2023-08-30 16:00 | HO.PSYCHPN ---
Subjective Subjective Date of Service: 08/30/23 Reason For Visit: SI Interim History: reports increased anxiety last night due to disturbances on the unit. poor sleep because of that. concerned about new teeth grinding as well. would like to continue current regimen. per staff, depressed and anxious. showered. taking meds. seeing shadows. no AH. pleasant. slept 8 hours. COVID NEG today. Mental Status Exam Mental Status Exam Narrative: Pleasant. Engaged. adequately dressed and groomed. Alert and oriented. no PMA/PMR. speech nml rate and amount, nml ZANDRA. thoughts linear and logical. affect non-labile, constricted. mood anxious. no SI/HI/AVH expressed. Diagnostics Vital Signs (24Hr): Vital Signs - 24 hr 08/29/23 20:15 08/30/23 07:58 Temperature 98.2 F 98.2 F Pulse Rate 82 77 Respiratory Rate 18 18 Blood Pressure 123/67 113/53 L Pulse Oximetry 100 96 Oxygen Delivery Method Room Air Room Air BMI result Body Mass Index 29.3 Labs 08/24/23 07:35 08/30/23 08:22 Labs: Laboratory Results - last 48 hr 08/29/23 08/30/23 08/30/23 11:49 08:22 08:26 Creatinine 0.96 Estim Creat Clear Calc 96.8 Estimated GFR > 60 Urine Color Yellow Urine Appearance Cloudy Urine pH 7.0 Ur Specific [place] 1.015 Urine Protein Negative Urine Glucose (UA) Negative Urine Ketones Negative Urine Blood Trace H Urine Nitrite Negative Ur Leukocyte Esterase Trace H Urine RBC 11-20 H Urine WBC 6-10 H Ur Squamous Epith Cells >20 Urine Bacteria 2+ Hyaline Casts 0-2 COVID-19 (FREDDIE) Negative COVID-19 Clin Com See Note Imaging Radiology Impressions: ITS Impressions Abdomen Ultrasound 08/23/23 07:33 IMPRESSION: 1. Diffusely echogenic liver without focal lesion. 2. Visualized pancreas, gallbladder, CBD and right kidney is unremarkable. Abdomen/Pelvis CT 08/23/23 09:48 IMPRESSION: No acute intra-abdominal or pelvic pathology. Diverticulosis without diverticulitis. 3 mm nonobstructing right lower pole renal calculus. Enlarged fatty liver, question too small to characterize hepatic cyst(s). Fleischner guidelines were followed. Medications Medications Current Medications Acetaminophen (Acetaminophen 325 Mg Tablet) 650 mg PO Q6H PRN PRN Reason: Headache/Pain Mild Scale (1-3) Last Admin: 08/30/23 08:09 Dose: 650 mg Al Hydroxide/Mg Hydroxide (Magnesium Hydrox/Alum Hydrox 30 Ml Oral.Susp) 30 ml PO Q6H PRN PRN Reason: Heartburn/Nausea Last Admin: 08/29/23 20:29 Dose: 30 ml Albuterol Sulfate (Albuterol Sulfate 90 Mcg 8 Gm Inhaler) 1 puff INHALE RQ4H PRN PRN Reason: Wheezing Capsaicin (Capsaicin 0.025% Cream 60 Gm Tube) 1 appl TOPICAL QID PRN; Protocol PRN Reason: low back pain Last Admin: 08/30/23 14:03 Dose: 1 appl Clonazepam (Clonazepam 0.5 Mg Tablet) 0.5 mg PO DAILY PRN PRN Reason: as directed Last Admin: 08/30/23 14:02 Dose: 0.5 mg Docusate Sodium (Docusate Sodium 100 Mg Capsule) 100 mg PO BID [facility] Last Admin: 08/30/23 08:03 Dose: 100 mg Fluticasone Propionate (Fluticasone Propionate 100 Mcg Blst.W.Dev) 1 puff INHALE RBID [facility] Last Admin: 08/30/23 08:03 Dose: 1 puff Hydroxyzine HCl (Hydroxyzine Hcl 25 Mg Tablet) 25 mg PO Q4H PRN PRN Reason: Anxiety Last Admin: 08/30/23 14:51 Dose: 25 mg Magnesium Hydroxide (Milk Of Magnesia 30 Ml Oral.Susp) 30 ml PO DAILY PRN PRN Reason: Constipation Metformin HCl (Metformin Hcl 500 Mg Tablet) 500 mg PO BEDTIME [facility] Last Admin: 08/29/23 20:22 Dose: 500 mg Multivitamins/Vitamin C (Multivitamin Tablet) 1 tab PO DAILY [facility] Last Admin: 08/30/23 08:03 Dose: 1 tab Nicotine Polacrilex (Nicotine Polacrilex 2 Mg Gum) 4 mg BUCCAL Q2H PRN PRN Reason: Nicotine Cravings Olanzapine (Olanzapine 10 Mg Tablet) 20 mg PO BEDTIME [facility] Last Admin: 08/29/23 20:23 Dose: 20 mg Omeprazole (Omeprazole 20 Mg Capsule.Dr) 20 mg PO BID@0630,1630 [facility] Last Admin: 08/30/23 06:48 Dose: 20 mg Ondansetron HCl (Ondansetron Odt 4 Mg Tab.Rapdis) 4 mg TRANSLINGU Q6H PRN PRN Reason: Nausea and Vomiting Last Admin: 08/29/23 21:31 Dose: 4 mg Polyethylene Glycol (Polyethylene Glycol 3350 17 Gm Powd.Pack) 17 gm PO DAILY [facility] Last Admin: 08/30/23 08:01 Dose: 17 gm Prazosin HCl (Prazosin Hcl 1 Mg Capsule) 2 mg PO DAILY [facility]; Protocol Last Admin: 08/30/23 08:03 Dose: 2 mg Prazosin HCl (Prazosin Hcl 1 Mg Capsule) 6 mg PO BEDTIME [facility]; Protocol Last Admin: 08/29/23 20:24 Dose: 6 mg Sertraline HCl (Sertraline Hcl 50 Mg Tablet) 150 mg PO DAILY [facility] Last Admin: 08/30/23 08:02 Dose: 150 mg Sucralfate (Sucralfate 1 Gm Tablet) 1 gm PO QIDACHS [facility] Last Admin: 08/30/23 11:40 Dose: 1 gm Trazodone HCl (Trazodone Hcl 50 Mg Tablet) 50 mg PO BEDTIME [facility] PRN PRN Reason: Insomnia Last Admin: 08/29/23 21:30 Dose: 50 mg Trazodone HCl (Trazodone Hcl 50 Mg Tablet) 150 mg PO BEDTIME [facility] Last Admin: 08/29/23 20:25 Dose: 150 mg Trimethoprim/Sulfamethoxazole (Sulfamethox/Trimeth 800/160 Tablet) 1 tab PO BID [facility] Last Admin: 08/30/23 11:40 Dose: 1 tab Ziprasidone (Ziprasidone 20 Mg Capsule) 20 mg PO BID PRN PRN Reason: agitation Last Admin: 08/29/23 20:25 Dose: 20 mg Allergies Allergies Allergy/AdvReac Type Severity Reaction Status Date / Time Penicillins Allergy Severe Anaphylaxis Verified 08/23/23 13:22 almond Allergy Anaphylaxis Verified 08/23/23 13:22 shrimp Allergy Anaphylaxis Verified 08/23/23 13:22 peanuts Allergy Severe Anaphylaxis Uncoded 08/23/23 13:22 Assessment & Plan Assessment & Plan (1) PTSD (post-traumatic stress disorder): Status: Acute Code(s): F43.10 - Post-traumatic stress disorder, unspecified (2) Major depression with psychotic features: Status: Acute Code(s): F32.3 - Major depressive disorder, single episode, severe with psychotic features Plan Presents with major depressive disorder and psychosis in the context of recent psychiatricocial stressors, being off medications in the context of anxiety and nausea. Experiencing command hallucinations and suicidal ideation and therefore potential danger to self. Medical workup reassuring. Will order Carafate in addition to omeprazole and maintain medications from recent discharge ie restart same , having been off them for around 3-4 days. 08/24: increase olanzapine to 15mg. Schedule atarax and prn doses too. 08/25: increase prazosin to 3 mg. encouraged to use geodon PRNs. anxious, tearful. c/o trauma nightmares. 08/26: calm, cooperative. poor sleep with nightmares, increase prazosin to 5 QHS. continue morning prazosin of 2 mg. 08/27: stable presentation. nightmares and insomnia continue. prazosin increased to 6 mg QHS, olanzapine increased to 20 mg QHS. sertraline increased to 150 mg for depression and anxiety. 08/28: slept well, no nightmares last night. happy with current regimen. continue current mgmt. 08/29: more anxious and worse sleep last night due to multiple disturbances on the unit. reports new-onset bruxism; T/C if increase in SSRI dosing responsible. wants to keep regimen as it is for now. Reason for continued inpatient stay Substantial Risk for: inability to function and rapid decompensation Time Spent With Patient Time: Total time managing care of this patient today __25__ minutes.
[2023-08-30 19:45] VITALS: BP 131/64; PULSE 96; RESP 18; TEMP 36.7; O2SAT 99
[2023-08-30] MEDS: OLANZapine 10 MG TABLET 20 MG PO (20:27)
[2023-08-30] MEDS: metFORMIN HCl 500 MG TABLET PO (20:28)
[2023-08-30] MEDS: Prazosin HCL 1 MG, Prazosin HCL 5 MG 6 MG PO (21:19)
[2023-08-30] MEDS: traZODone HCL 100 MG TABLET 250 MG PO (21:20)
[2023-08-31 06:00] VITALS: BP 112/56; PULSE 87; RESP 14; TEMP 37.5
[2023-08-31] MEDS: Fluticasone Propionate 100 MCG BLST.W.DEV 1 PUFF INHALE ×2 (08:42→20:23)
[2023-08-31] MEDS: Sulfamethox/Trimeth 800/160 TABLET 1 TAB PO ×2 (08:43→20:16)
[2023-08-31] MEDS: Docusate Sodium 100 MG CAPSULE PO ×2 (08:43→20:17)
[2023-08-31] MEDS: Multivitamin TABLET 1 TAB PO (08:43)
[2023-08-31] MEDS: Sertraline HCL 50 MG TABLET 150 MG PO (08:43)
[2023-08-31] MEDS: Prazosin HCL 1 MG CAPSULE 2 MG PO (08:43)
[2023-08-31] MEDS: Sucralfate 1 GM TABLET PO ×4 (08:44→20:17)
[2023-08-31] MEDS: Omeprazole 20 MG CAPSULE.DR PO ×2 (08:44→17:03)
[2023-08-31] MEDS: Capsaicin 0.025% Cream 60 GM TUBE 1 APPL TOPICAL ×2 (08:48→17:04)
[2023-08-31] MEDS: polyethylene glycoL 3350 17 GM POWD.PACK PO (09:06)
[2023-08-31] MEDS: hydrOXYzine HCL 25 MG TABLET PO ×2 (11:03→19:06)
[2023-08-31] MEDS: clonazePAM 0.5 MG TABLET PO (11:41)
--- NOTE | 2023-08-31 11:55 | HO.PSYCHPN ---
Subjective Subjective Date of Service: 08/31/23 Reason For Visit: SI Subjective Notes: Conditional Voluntary Interim History: Pt reports feeling better but being triggered by loud and agitated pts on the unit. She denied SI/HI. She denies side effects with medications. She reports seroquel has been very helpful for anxiety. She states she had nightmare last night. Review of Systems Review of Systems nil acute Mental Status Exam Mental Status Exam Narrative: Pleasant. Engaged. adequately dressed and groomed. Alert and oriented. no PMA/PMR. speech nml rate and amount, nml ZANDRA. thoughts linear and logical. affect non-labile, constricted. mood anxious. no SI/HI/AVH expressed. Diagnostics Vital Signs (24Hr): Vital Signs - 24 hr 08/30/23 19:45 08/31/23 06:00 Temperature 98.1 F 99.5 F Pulse Rate 96 87 Respiratory Rate 18 14 Blood Pressure 131/64 112/56 L Pulse Oximetry 99 Oxygen Delivery Method Room Air Room Air BMI result Body Mass Index 29.3 Labs 08/24/23 07:35 08/30/23 08:22 Labs: Laboratory Results - last 48 hr 08/29/23 08/30/23 08/30/23 11:49 08:22 08:26 Creatinine 0.96 Estim Creat Clear Calc 96.8 Estimated GFR > 60 Urine Color Yellow Urine Appearance Cloudy Urine pH 7.0 Ur Specific [place] 1.015 Urine Protein Negative Urine Glucose (UA) Negative Urine Ketones Negative Urine Blood Trace H Urine Nitrite Negative Ur Leukocyte Esterase Trace H Urine RBC 11-20 H Urine WBC 6-10 H Ur Squamous Epith Cells >20 Urine Bacteria 2+ Hyaline Casts 0-2 COVID-19 ([facility]EDDIE) Negative COVID-19 Clin Com See Note Imaging Radiology Impressions: ITS Impressions Abdomen Ultrasound 08/23/23 07:33 IMPRESSION: 1. Diffusely echogenic liver without focal lesion. 2. Visualized pancreas, gallbladder, CBD and right kidney is unremarkable. Abdomen/Pelvis CT 08/23/23 09:48 IMPRESSION: No acute intra-abdominal or pelvic pathology. Diverticulosis without diverticulitis. 3 mm nonobstructing right lower pole renal calculus. Enlarged fatty liver, question too small to characterize hepatic cyst(s). Fleischner guidelines were followed. Medications Medications Current Medications Acetaminophen (Acetaminophen 325 Mg Tablet) 650 mg PO Q6H PRN PRN Reason: Headache/Pain Mild Scale (1-3) Last Admin: 08/30/23 08:09 Dose: 650 mg Al Hydroxide/Mg Hydroxide (Magnesium Hydrox/Alum Hydrox 30 Ml Oral.Susp) 30 ml PO Q6H PRN PRN Reason: Heartburn/Nausea Last Admin: 08/29/23 20:29 Dose: 30 ml Albuterol Sulfate (Albuterol Sulfate 90 Mcg 8 Gm Inhaler) 1 puff INHALE RQ4H PRN PRN Reason: Wheezing Capsaicin (Capsaicin 0.025% Cream 60 Gm Tube) 1 appl TOPICAL QID PRN; Protocol PRN Reason: low back pain Last Admin: 08/31/23 08:48 Dose: 1 appl Clonazepam (Clonazepam 0.5 Mg Tablet) 0.5 mg PO DAILY PRN PRN Reason: as directed Last Admin: 08/31/23 11:41 Dose: 0.5 mg Docusate Sodium (Docusate Sodium 100 Mg Capsule) 100 mg PO BID [facility] Last Admin: 08/31/23 08:43 Dose: 100 mg Fluticasone Propionate (Fluticasone Propionate 100 Mcg Blst.W.Dev) 1 puff INHALE RBID [facility] Last Admin: 08/31/23 08:42 Dose: 1 puff Hydroxyzine HCl (Hydroxyzine Hcl 25 Mg Tablet) 25 mg PO Q4H PRN PRN Reason: Anxiety Last Admin: 08/31/23 11:03 Dose: 25 mg Magnesium Hydroxide (Milk Of Magnesia 30 Ml Oral.Susp) 30 ml PO DAILY PRN PRN Reason: Constipation Metformin HCl (Metformin Hcl 500 Mg Tablet) 500 mg PO BEDTIME [facility] Last Admin: 08/30/23 20:28 Dose: 500 mg Multivitamins/Vitamin C (Multivitamin Tablet) 1 tab PO DAILY [facility] Last Admin: 08/31/23 08:43 Dose: 1 tab Nicotine Polacrilex (Nicotine Polacrilex 2 Mg Gum) 4 mg BUCCAL Q2H PRN PRN Reason: Nicotine Cravings Olanzapine (Olanzapine 10 Mg Tablet) 20 mg PO BEDTIME [facility] Last Admin: 08/30/23 20:27 Dose: 20 mg Omeprazole (Omeprazole 20 Mg Capsule.Dr) 20 mg PO BID@0630,1630 [facility] Last Admin: 08/31/23 08:44 Dose: 20 mg Ondansetron HCl (Ondansetron Odt 4 Mg Tab.Rapdis) 4 mg TRANSLINGU Q6H PRN PRN Reason: Nausea and Vomiting Last Admin: 08/29/23 21:31 Dose: 4 mg Polyethylene Glycol (Polyethylene Glycol 3350 17 Gm Powd.Pack) 17 gm PO DAILY [facility] Last Admin: 08/31/23 09:06 Dose: 17 gm Prazosin HCl (Prazosin Hcl 1 Mg Capsule) 2 mg PO DAILY [facility]; Protocol Last Admin: 08/31/23 08:43 Dose: 2 mg Prazosin HCl 1 mg/ Prazosin (HCl 5 mg) 6 mg PO BEDTIME [facility]; Protocol Last Admin: 08/30/23 21:19 Dose: 6 mg Sertraline HCl (Sertraline Hcl 50 Mg Tablet) 150 mg PO DAILY [facility] Last Admin: 08/31/23 08:43 Dose: 150 mg Sucralfate (Sucralfate 1 Gm Tablet) 1 gm PO QIDACHS [facility] Last Admin: 08/31/23 11:03 Dose: 1 gm Trazodone HCl (Trazodone Hcl 100 Mg Tablet) 250 mg PO BEDTIME [facility] Last Admin: 08/30/23 21:20 Dose: 250 mg Trimethoprim/Sulfamethoxazole (Sulfamethox/Trimeth 800/160 Tablet) 1 tab PO BID [facility] Last Admin: 08/31/23 08:43 Dose: 1 tab Ziprasidone (Ziprasidone 20 Mg Capsule) 20 mg PO BID PRN PRN Reason: agitation Last Admin: 08/29/23 20:25 Dose: 20 mg Allergies Allergies Allergy/AdvReac Type Severity Reaction Status Date / Time Penicillins Allergy Severe Anaphylaxis Verified 08/23/23 13:22 almond Allergy Anaphylaxis Verified 08/23/23 13:22 shrimp Allergy Anaphylaxis Verified 08/23/23 13:22 peanuts Allergy Severe Anaphylaxis Uncoded 08/23/23 13:22 Assessment & Plan Assessment & Plan (1) PTSD (post-traumatic stress disorder): Status: Acute Code(s): F43.10 - Post-traumatic stress disorder, unspecified (2) Major depression with psychotic features: Status: Acute Code(s): F32.3 - Major depressive disorder, single episode, severe with psychotic features Plan Presents with major depressive disorder and psychosis in the context of recent psychiatricocial stressors, being off medications in the context of anxiety and nausea. Experiencing command hallucinations and suicidal ideation and therefore potential danger to self. Medical workup reassuring. Will order Carafate in addition to omeprazole and maintain medications from recent discharge ie restart same , having been off them for around 3-4 days. 08/24: increase olanzapine to 15mg. Schedule atarax and prn doses too. 08/25: increase prazosin to 3 mg. encouraged to use geodon PRNs. anxious, tearful. c/o trauma nightmares. 08/26: calm, cooperative. poor sleep with nightmares, increase prazosin to 5 QHS. continue morning prazosin of 2 mg. 08/27: stable presentation. nightmares and insomnia continue. prazosin increased to 6 mg QHS, olanzapine increased to 20 mg QHS. sertraline increased to 150 mg for depression and anxiety. 08/28: slept well, no nightmares last night. happy with current regimen. continue current mgmt. 08/29: more anxious and worse sleep last night due to multiple disturbances on the unit. reports new-onset bruxism; T/C if increase in SSRI dosing responsible. wants to keep regimen as it is for now. 08/30 continue tx. Reason for continued inpatient stay Substantial Risk for: inability to function Time Spent With Patient Time: Total time managing care of this patient today ____ minutes.
[2023-08-31] MEDS: QUEtiapine Fumarate 50 MG TABLET PO ×3 (13:04→20:18)
[2023-08-31] MEDS: Magnesium Hydrox/Alum Hydrox 30 ML ORAL.SUSP PO (13:36)
[2023-08-31 19:58] VITALS: BP 131/62; PULSE 90; RESP 16; TEMP 36.8; O2SAT 99
[2023-08-31] MEDS: traZODone HCL 100 MG TABLET 250 MG PO (20:16)
[2023-08-31] MEDS: Prazosin HCL 1 MG, Prazosin HCL 5 MG 6 MG PO (20:16)
[2023-08-31] MEDS: metFORMIN HCl 500 MG TABLET PO (20:16)
[2023-08-31] MEDS: OLANZapine 10 MG TABLET 20 MG PO (20:17)
[2023-09-01 09:35] VITALS: BP 128/65; PULSE 120; RESP 16; TEMP 37.1; O2SAT 99
[2023-09-01] MEDS: Omeprazole 20 MG CAPSULE.DR PO ×2 (09:37→17:02)
[2023-09-01] MEDS: Sertraline HCL 50 MG TABLET 150 MG PO (09:37)
[2023-09-01] MEDS: polyethylene glycoL 3350 17 GM POWD.PACK PO (09:37)
[2023-09-01] MEDS: Fluticasone Propionate 100 MCG BLST.W.DEV 1 PUFF INHALE ×2 (09:37→20:07)
[2023-09-01] MEDS: QUEtiapine Fumarate 50 MG TABLET PO ×3 (09:38→20:08)
[2023-09-01] MEDS: Docusate Sodium 100 MG CAPSULE PO ×2 (09:38→20:09)
[2023-09-01] MEDS: Sucralfate 1 GM TABLET PO ×4 (09:38→20:09)
[2023-09-01] MEDS: Prazosin HCL 1 MG CAPSULE 3 MG PO (09:38)
[2023-09-01] MEDS: Multivitamin TABLET 1 TAB PO (09:38)
[2023-09-01] MEDS: Sulfamethox/Trimeth 800/160 TABLET 1 TAB PO ×2 (09:38→20:09)
[2023-09-01] MEDS: hydrOXYzine HCL 25 MG TABLET PO ×3 (11:59→21:20)
[2023-09-01] MEDS: clonazePAM 0.5 MG TABLET PO (14:29)
[2023-09-01] MEDS: Capsaicin 0.025% Cream 60 GM TUBE 1 APPL TOPICAL (18:54)
[2023-09-01 20:00] VITALS: BP 130/68; PULSE 86; RESP 16; TEMP 36.5; O2SAT 99
[2023-09-01] MEDS: traZODone HCL 100 MG TABLET 250 MG PO (20:07)
[2023-09-01] MEDS: Prazosin HCL 1 MG, Prazosin HCL 5 MG 6 MG PO (20:07)
[2023-09-01] MEDS: OLANZapine 10 MG TABLET 20 MG PO (20:08)
[2023-09-01] MEDS: metFORMIN HCl 500 MG TABLET PO (20:08)
--- NOTE | 2023-09-01 20:11 | HO.PSYCHPN ---
Subjective Subjective Date of Service: 09/01/23 Reason For Visit: SI Subjective Notes: Conditional Voluntary Interim History: Pt reports feeling better but being triggered by loud and agitated pts on the unit. She denied SI/HI. She denies side effects with medications. She reports seroquel has been very helpful for anxiety. She states last night she did not have nightmares. Review of Systems Review of Systems nil acute Mental Status Exam Mental Status Exam Narrative: Pleasant. Engaged. adequately dressed and groomed. Alert and oriented. no PMA/PMR. speech nml rate and amount, nml ZANDRA. thoughts linear and logical. affect non-labile, constricted. mood anxious. no SI/HI/AVH expressed. Diagnostics Vital Signs (24Hr): Vital Signs - 24 hr 09/01/23 09:35 Temperature 98.8 F Pulse Rate 120 H Respiratory Rate 16 Blood Pressure 128/65 Pulse Oximetry 99 Oxygen Delivery Method Room Air BMI result Body Mass Index 29.3 Labs 08/24/23 07:35 08/30/23 08:22 Imaging Radiology Impressions: ITS Impressions Abdomen Ultrasound 08/23/23 07:33 IMPRESSION: 1. Diffusely echogenic liver without focal lesion. 2. Visualized pancreas, gallbladder, CBD and right kidney is unremarkable. Abdomen/Pelvis CT 08/23/23 09:48 IMPRESSION: No acute intra-abdominal or pelvic pathology. Diverticulosis without diverticulitis. 3 mm nonobstructing right lower pole renal calculus. Enlarged fatty liver, question too small to characterize hepatic cyst(s). Fleischner guidelines were followed. Medications Medications Current Medications Acetaminophen (Acetaminophen 325 Mg Tablet) 650 mg PO Q6H PRN PRN Reason: Headache/Pain Mild Scale (1-3) Last Admin: 08/30/23 08:09 Dose: 650 mg Al Hydroxide/Mg Hydroxide (Magnesium Hydrox/Alum Hydrox 30 Ml Oral.Susp) 30 ml PO Q6H PRN PRN Reason: Heartburn/Nausea Last Admin: 08/31/23 13:36 Dose: 30 ml Albuterol Sulfate (Albuterol Sulfate 90 Mcg 8 Gm Inhaler) 1 puff INHALE RQ4H PRN PRN Reason: Wheezing Capsaicin (Capsaicin 0.025% Cream 60 Gm Tube) 1 appl TOPICAL QID PRN; Protocol PRN Reason: low back pain Last Admin: 09/01/23 18:54 Dose: 1 appl Clonazepam (Clonazepam 0.5 Mg Tablet) 0.5 mg PO DAILY PRN PRN Reason: as directed Last Admin: 09/01/23 14:29 Dose: 0.5 mg Docusate Sodium (Docusate Sodium 100 Mg Capsule) 100 mg PO BID [facility] Last Admin: 09/01/23 20:09 Dose: 100 mg Fluticasone Propionate (Fluticasone Propionate 100 Mcg Blst.W.Dev) 1 puff INHALE RBID [facility] Last Admin: 09/01/23 20:07 Dose: 1 puff Hydroxyzine HCl (Hydroxyzine Hcl 25 Mg Tablet) 25 mg PO Q4H PRN PRN Reason: Anxiety Last Admin: 09/01/23 17:03 Dose: 25 mg Magnesium Hydroxide (Milk Of Magnesia 30 Ml Oral.Susp) 30 ml PO DAILY PRN PRN Reason: Constipation Metformin HCl (Metformin Hcl 500 Mg Tablet) 500 mg PO BEDTIME [facility] Last Admin: 09/01/23 20:08 Dose: 500 mg Multivitamins/Vitamin C (Multivitamin Tablet) 1 tab PO DAILY [facility] Last Admin: 09/01/23 09:38 Dose: 1 tab Nicotine Polacrilex (Nicotine Polacrilex 2 Mg Gum) 4 mg BUCCAL Q2H PRN PRN Reason: Nicotine Cravings Olanzapine (Olanzapine 10 Mg Tablet) 20 mg PO BEDTIME [facility] Last Admin: 09/01/23 20:08 Dose: 20 mg Omeprazole (Omeprazole 20 Mg Capsule.Dr) 20 mg PO BID@0630,1630 [facility] Last Admin: 09/01/23 17:02 Dose: 20 mg Ondansetron HCl (Ondansetron Odt 4 Mg Tab.Rapdis) 4 mg TRANSLINGU Q6H PRN PRN Reason: Nausea and Vomiting Last Admin: 08/29/23 21:31 Dose: 4 mg Polyethylene Glycol (Polyethylene Glycol 3350 17 Gm Powd.Pack) 17 gm PO DAILY [facility] Last Admin: 09/01/23 09:37 Dose: 17 gm Prazosin HCl 1 mg/ Prazosin (HCl 5 mg) 6 mg PO BEDTIME [facility]; Protocol Last Admin: 09/01/23 20:07 Dose: 6 mg Prazosin HCl (Prazosin Hcl 1 Mg Capsule) 3 mg PO DAILY [facility]; Protocol Last Admin: 09/01/23 09:38 Dose: 3 mg Quetiapine Fumarate (Quetiapine Fumarate 50 Mg Tablet) 50 mg PO TID [facility] Last Admin: 09/01/23 20:08 Dose: 50 mg Sertraline HCl (Sertraline Hcl 50 Mg Tablet) 150 mg PO DAILY [facility] Last Admin: 09/01/23 09:37 Dose: 150 mg Sucralfate (Sucralfate 1 Gm Tablet) 1 gm PO QIDACHS [facility] Last Admin: 09/01/23 20:09 Dose: 1 gm Trazodone HCl (Trazodone Hcl 100 Mg Tablet) 250 mg PO BEDTIME [facility] Last Admin: 09/01/23 20:07 Dose: 250 mg Trimethoprim/Sulfamethoxazole (Sulfamethox/Trimeth 800/160 Tablet) 1 tab PO BID [facility] Last Admin: 09/01/23 20:09 Dose: 1 tab Ziprasidone (Ziprasidone 20 Mg Capsule) 20 mg PO BID PRN PRN Reason: agitation Last Admin: 08/29/23 20:25 Dose: 20 mg Allergies Allergies Allergy/AdvReac Type Severity Reaction Status Date / Time Penicillins Allergy Severe Anaphylaxis Verified 08/23/23 13:22 almond Allergy Anaphylaxis Verified 08/23/23 13:22 shrimp Allergy Anaphylaxis Verified 08/23/23 13:22 peanuts Allergy Severe Anaphylaxis Uncoded 08/23/23 13:22 Assessment & Plan Assessment & Plan (1) PTSD (post-traumatic stress disorder): Status: Acute Code(s): F43.10 - Post-traumatic stress disorder, unspecified (2) Major depression with psychotic features: Status: Acute Code(s): F32.3 - Major depressive disorder, single episode, severe with psychotic features Plan Presents with major depressive disorder and psychosis in the context of recent psychiatricocial stressors, being off medications in the context of anxiety and nausea. Experiencing command hallucinations and suicidal ideation and therefore potential danger to self. Medical workup reassuring. Will order Carafate in addition to omeprazole and maintain medications from recent discharge ie restart same , having been off them for around 3-4 days. 08/24: increase olanzapine to 15mg. Schedule atarax and prn doses too. 08/25: increase prazosin to 3 mg. encouraged to use geodon PRNs. anxious, tearful. c/o trauma nightmares. 08/26: calm, cooperative. poor sleep with nightmares, increase prazosin to 5 QHS. continue morning prazosin of 2 mg. 08/27: stable presentation. nightmares and insomnia continue. prazosin increased to 6 mg QHS, olanzapine increased to 20 mg QHS. sertraline increased to 150 mg for depression and anxiety. 08/28: slept well, no nightmares last night. happy with current regimen. continue current mgmt. 08/29: more anxious and worse sleep last night due to multiple disturbances on the unit. reports new-onset bruxism; T/C if increase in SSRI dosing responsible. wants to keep regimen as it is for now. 08/30 continue tx 08/31 continue tx. Reason for continued inpatient stay Substantial Risk for: inability to function Time Spent With Patient Time: Total time managing care of this patient today ____ minutes.
--- NOTE | 2023-09-01 21:21 | PC.NURSE ---
Kymberly reported some anxiety, was given Atarax Po prn.
[2023-09-02 07:15] VITALS: BP 106/57; PULSE 108; RESP 16; TEMP 36.3; O2SAT 100
[2023-09-02] MEDS: Fluticasone Propionate 100 MCG BLST.W.DEV 1 PUFF INHALE ×2 (08:10→20:20)
[2023-09-02] MEDS: polyethylene glycoL 3350 17 GM POWD.PACK PO (08:11)
[2023-09-02] MEDS: Prazosin HCL 1 MG CAPSULE 3 MG PO (08:12)
[2023-09-02] MEDS: Multivitamin TABLET 1 TAB PO (08:12)
[2023-09-02] MEDS: Sertraline HCL 50 MG TABLET 150 MG PO (08:13)
[2023-09-02] MEDS: Omeprazole 20 MG CAPSULE.DR PO ×2 (08:13→18:12)
[2023-09-02] MEDS: Sucralfate 1 GM TABLET PO ×4 (08:13→20:22)
[2023-09-02] MEDS: Docusate Sodium 100 MG CAPSULE PO ×2 (08:13→20:20)
[2023-09-02] MEDS: Sulfamethox/Trimeth 800/160 TABLET 1 TAB PO ×2 (08:13→20:21)
[2023-09-02] MEDS: QUEtiapine Fumarate 50 MG TABLET PO ×3 (08:13→20:21)
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
[2023-09-02] MEDS: hydrOXYzine HCL 25 MG TABLET PO ×2 (12:15→18:13)
[2023-09-02] MEDS: clonazePAM 0.5 MG TABLET PO (14:44)
[2023-09-02] MEDS: Acetaminophen 325 MG TABLET 650 MG PO (14:59)
[2023-09-02] MEDS: Capsaicin 0.025% Cream 60 GM TUBE 1 APPL TOPICAL ×2 (15:01→20:24)
[2023-09-02 20:00] VITALS: BP 119/58; PULSE 92; RESP 15; TEMP 36.7; O2SAT 98
[2023-09-02] MEDS: OLANZapine 10 MG TABLET 20 MG PO (20:20)
[2023-09-02] MEDS: metFORMIN HCl 500 MG TABLET PO (20:21)
[2023-09-02] MEDS: Prazosin HCL 1 MG, Prazosin HCL 5 MG 6 MG PO (20:21)
[2023-09-02] MEDS: traZODone HCL 100 MG TABLET 250 MG PO (20:22)
[2023-09-03 07:45] VITALS: BP 123/58; PULSE 96; RESP 20; TEMP 37; O2SAT 96
[2023-09-03] MEDS: Fluticasone Propionate 100 MCG BLST.W.DEV 1 PUFF INHALE (08:23)
[2023-09-03] MEDS: polyethylene glycoL 3350 17 GM POWD.PACK PO (08:25)
[2023-09-03] MEDS: Prazosin HCL 1 MG CAPSULE 3 MG PO (08:26)
[2023-09-03] MEDS: Docusate Sodium 100 MG CAPSULE PO (08:27)
[2023-09-03] MEDS: QUEtiapine Fumarate 50 MG TABLET PO (08:27)
[2023-09-03] MEDS: Sulfamethox/Trimeth 800/160 TABLET 1 TAB PO (08:27)
[2023-09-03] MEDS: Omeprazole 20 MG CAPSULE.DR PO (08:27)
[2023-09-03] MEDS: Sucralfate 1 GM TABLET PO (08:27)
[2023-09-03] MEDS: Multivitamin TABLET 1 TAB PO (08:27)
[2023-09-03] MEDS: Sertraline HCL 50 MG TABLET 150 MG PO (08:28)
[2023-09-03] MEDS: clonazePAM 0.5 MG TABLET PO (09:54)
== END 2023-09-03 11:24 | disposition home or self-care (01) | DRG 751 ==
LOC: HO.ED 12:38 → HO.PADLT16 16:16
PROVIDERS: Emergency Medicine; Admitting Provider Psychiatry & Neurology Psychiatry; Emergency Provider Emergency Medicine; Visit Provider Psychiatry & Neurology Psychiatry
DX: F33.1 Major depressive disorder, recurrent, moderate (principal); R45.851 Suicidal ideations; F43.12 Post-traumatic stress disorder, chronic; K21.9 Gastro-esophageal reflux disease without esophagitis; Z20.822 Contact with and (suspected) exposure to COVID-19; Z79.84 Long term (current) use of oral hypoglycemic drugs; Z87.891 Personal history of nicotine dependence; Z79.899 Other long term (current) drug therapy
CPT/HCPCS: 0241U; 36415; 74177; 76705; 80048; 80076; 80307; 81001; 81025; 82565; 83605; 83690; 83735; 85025; 87040; 87086; 87088; 87186; 87635; 93005; 99285; J2060; Q9967; S9485

== ENCOUNTER → 2023-08-23 12:39 | Outpatient (BNV) | payer MEDICAID, SELFPAY | PROVIDERS: Admitting Provider Psychiatry & Neurology Psychiatry; Emergency Provider Emergency Medicine; Visit Provider Internal Medicine Cardiovascular Disease | DX: I45.81 Long QT syndrome (principal) | CPT/HCPCS: 93010 ==

== ENCOUNTER → 2023-08-23 15:27 | Outpatient (BNV) | payer OTHER, SELFPAY | PROVIDERS: Admitting Provider Psychiatry & Neurology Psychiatry; Emergency Provider Emergency Medicine; Visit Provider Psychiatry & Neurology Psychiatry | DX: F33.3 Major depressive disorder, recurrent, severe with psychotic symptoms (principal); F43.12 Post-traumatic stress disorder, chronic | CPT/HCPCS: 99231; 99232 ==

== ENCOUNTER 2023-10-30 12:53 | Day surgery (SDC) | payer MEDICAID, SELFPAY ==
[2023-10-07 14:31] VITALS: BMI 31.0
--- NOTE | 2023-10-08 09:59 | HO.ANESPROP2 ---
Documented by User: Shruti Back NP 10/15/23 12:32 HPI - Anesthesia Eval Consult details Narrative: 37yo F for Upper Endoscopy, 10/30/23 +tox screen 08/2023 PMF Active Problems Active Problems: All Active Problems Major depression with psychotic features (Acute) Anxiety and depression (Acute) Nausea & vomiting (Acute) Bipolar disorder, unspecified (Acute) Other mixed anxiety disorders (Acute) Cocaine abuse (Acute) Cannabis abuse (Acute) PTSD (post-traumatic stress disorder) (Acute) DAVE (generalized anxiety disorder) (Acute) MDD (major depressive disorder), recurrent episode (Acute) Substance abuse (Acute) Acute anxiety (Acute) COVID-19 virus infection (Acute) Acute posttraumatic stress disorder (Acute) Past Medical History Medical History (Updated 10/07/23 @ 14:31 by Yajaira Holman RN) Substance abuse Bipolar disorder Anxiety Depression History of irregular heartbeat Acute posttraumatic stress disorder UTI (urinary tract infection) Asthma exacerbation Surgical History Surgical History (Updated 10/07/23 @ 14:30 by Yajaira Holman RN) History of surgery Hx of section Social History Social History Household Members: Unknown / Unable to assess Household Members Other:: Every other week, partners 2 children come to stay with him Saturday- Saturday Housing: Apartment Do you presently have visiting nurse or other home services: No Alcohol intake: former Patient Tobacco Use Status: Former Tobacco user Quit Date: 2 years e-Cigarette/Vaping Use: Former Use Second Hand Smoke Exposure: Yes Use of substances other than those prescribed or required for medical reasons: Yes Substance Use Type: Marijuana Are you DNR?: No Advance Directives: No Advance Directives Information Provided: Yes service: No Sexual orientation: Straight/Heterosexual Meds Allergies Allergy/AdvReac Type Severity Reaction Status Date / Time almond Allergy Severe Anaphylaxis Verified 10/30/23 13:20 Penicillins Allergy Severe Anaphylaxis Verified 10/30/23 13:20 shrimp Allergy Severe Anaphylaxis Verified 10/30/23 13:20 peanuts Allergy Severe Anaphylaxis Uncoded 10/30/23 13:20 Home Medications ?Medication ?Instructions ?Recorded ?Confirmed ?Last Taken ?Type vitamin with calcium 1 tab PO DAILY 06/20/23 10/07/23 08/19/23 History no.72-iron 27 mg-folic acid 1 mg tablet ( Vitamins Plus Low Iron) fluticasone furoate 100 1 inh inhalation DAILY 10/07/23 10/07/23 Unknown History mcg/actuation blister powder for inhalation (Arnuity Ellipta) Exam Height,Weight and Vital Signs: Height 5 ft 9 in Weight 95.254 kg Assessment and Plan Assessment Anesthesia Assessment: Chart Reviewed Documented by User: Franki Tavarez MD 10/30/23 14:06 [facility] Past Medical History Medical History (Updated 10/07/23 @ 14:31 by Yajaira Holman RN) Substance abuse Bipolar disorder Anxiety Depression History of irregular heartbeat Acute posttraumatic stress disorder UTI (urinary tract infection) Asthma exacerbation Family History Family history of problems with anesthesia: No Surgical History Surgical History (Updated 10/07/23 @ 14:30 by Yajaira Holman RN) History of surgery Hx of section History of Problems with Anesthesia: No Social History Social History Household Members: Unknown / Unable to assess Household Members Other:: Every other week, partners 2 children come to stay with him Saturday- Saturday Housing: Apartment Do you presently have visiting nurse or other home services: No Alcohol intake: former Patient Tobacco Use Status: Former Tobacco user Quit Date: 2 years e-Cigarette/Vaping Use: Former Use Second Hand Smoke Exposure: Yes Use of substances other than those prescribed or required for medical reasons: Yes Substance Use Type: Marijuana Are you DNR?: No Advance Directives: No Advance Directives Information Provided: Yes service: No Sexual orientation: Straight/Heterosexual Meds Allergies Allergy/AdvReac Type Severity Reaction Status Date / Time almond Allergy Severe Anaphylaxis Verified 10/30/23 13:20 Penicillins Allergy Severe Anaphylaxis Verified 10/30/23 13:20 shrimp Allergy Severe Anaphylaxis Verified 10/30/23 13:20 peanuts Allergy Severe Anaphylaxis Uncoded 10/30/23 13:20 Home Medications ?Medication ?Instructions ?Recorded ?Confirmed ?Last Taken ?Type vitamin with calcium 1 tab PO DAILY 06/20/23 10/07/23 08/19/23 History no.72-iron 27 mg-folic acid 1 mg tablet ( Vitamins Plus Low Iron) fluticasone furoate 100 1 inh inhalation DAILY 10/07/23 10/07/23 Unknown History mcg/actuation blister powder for inhalation (Arnuity Ellipta) Exam Airway Mallampati Class: II TM Dist: <=3cm Neck ROM: Full Loose/Missing/Broken Teeth: No Heart: rrr Lungs: cta Assessment and Plan Assessment Anesthesia Assessment: Anesthesia Plan Discussed Final Anesthetic Review Family History of Problems with Anesthesia: No History of Problems with Anesthesia: No NPO: Yes ASA Class: II Final Preanesthetic Review: No Changes in Pt Med Stat, Meds/Allgs Chart Reviewed, Consent Obtained/Reviewed and Anes Risks/Benef Reviewed Patient Risk: Intermediate Procedure Risk: Intermediate Anesthetic Plan Anesthetic Plan: MAC: Disposition: Standard PACU
[2023-10-30 13:07] VITALS: BMI 22.0
[2023-10-30 13:12] VITALS: BP 123/71; PULSE 90; RESP 18; TEMP 36.2; O2SAT 96
[2023-10-30 13:13] LABS: UPreg QC Valid YES; Urine Pregnancy NEGATIVE (NEGATIVE)
[2023-10-30 13:19] LABS: Amphetamine Screen Urine Not Detected (Not Detect); Barbiturates, Urine Not Detected (Not Detect); Benzodiazepines Screen Urine Not Detected (Not Detect); Buprenorphine Scr Not Detected (Not Detect); Cannabinoid Screen Urine POSITIVE (Not Detect); Cocaine Screen Urine Not Detected (Not Detect); Fentanyl, urine Not Detected (Not Detect); Methadone Screen, Urine Not Detected (Not Detect); Opiate Screen Urine Not Detected (Not Detect); Oxycodone Screen Urine Not Detected (Not Detect); Phencyclidine Screen Urine Not Detected (Not Detect)
[2023-10-30] MEDS: Lactated Ringers 1,000 ML 100 ML IVCONT (13:35)
--- NOTE | 2023-10-30 14:05 | MHC.SHP ---
Pre-Procedural Eval Section A - 24 Hr Update-Section A only Date of Service: 10/30/23 Section B - Complete if H&P > 30 days Chief Complaint: Epigastric pain Details of Present Illness: see H&P no changes Relevant Family History (Specify if Yes): No Relevant Social History: None Present Medications: see Short Stay Collaborative assessment Medical History: No relevant PMH History of Previous Operations: No relevant previous surgery Allergies: Allergies Allergy/AdvReac Type Severity Reaction Status Date / Time almond Allergy Severe Anaphylaxis Verified 10/30/23 13:20 Penicillins Allergy Severe Anaphylaxis Verified 10/30/23 13:20 shrimp Allergy Severe Anaphylaxis Verified 10/30/23 13:20 peanuts Allergy Severe Anaphylaxis Uncoded 10/30/23 13:20 Review of Systems Sugical H&P ROS: Negative: Constitution, Cardiovascular, Respiratory, Neurological, Psychiatric, Hem-Onc, Allergic/Immunologic, Gastrointestinal, Genitourinary, Musculoskeletal, Integumentary, Endocrine and Eyes/Ears/Nose/Throat Exam Surgical H&P Exam: Normal: HEENT, Normal: Heart, Normal: Lungs, Normal: Extremities, Normal: Abdomen, Normal: Skin and Normal: Neurological Plan Diagnosis/Plan: Unchanged I have reviewed the history and physical and performed a pertinent physical examination on my patient. No changes have occurred unless specified. Time Spent With Patient Time: Total time managing care of this patient today ____ minutes.
[2023-10-30 14:33] VITALS: BP 115/66; PULSE 79; RESP 19; TEMP 36.4; O2SAT 96
[2023-10-30 14:48] VITALS: BP 118/71; PULSE 78; RESP 18; TEMP 36.6; O2SAT 96
--- NOTE | 2023-10-30 16:11 | OP_ITS ---
DATE OF SERVICE: 10/30/2023 SURGEON: Arnulfo Amezquita MD INDICATIONS: Epigastric pain. PREOPERATIVE DIAGNOSIS: POSTOPERATIVE DIAGNOSIS: PROCEDURE PERFORMED: Upper endoscopy with biopsy. ESTIMATED BLOOD LOSS: COMPLICATIONS: ANESTHESIA: Monitored anesthesia care. ASSISTANTS: SPECIMENS: DESCRIPTION OF PROCEDURE: A history and physical was performed. The risks and benefits of the procedure explained to the patient and informed consent was obtained. The patient was placed in the left lateral decubitus position. The Olympus video gastroscope was introduced into the esophagus, stomach, and duodenum. Examination was performed and the scope was removed. She tolerated the procedure well and was returned to recovery area in stable condition. FINDINGS: Esophagus: The esophagus was normal. There was a prolapsing hiatal hernia. Biopsies were obtained from the EG junction. Stomach: The stomach showed no evidence of masses, ulcers, or polyps. Antral biopsies were obtained. Duodenum: The bulb and 2nd portion were normal. Random biopsies were obtained from the 2nd portion. IMPRESSION: Gastroesophageal reflux disease. RECOMMENDATION: Follow up the biopsy results. MD VALERIE Houston/MOD[facility] / [id number]
== END 2023-10-30 15:22 | disposition home or self-care (01) ==
PROVIDERS: Nurse Practitioner; Visit Provider Internal Medicine Gastroenterology
PROC: 0DJ08ZZ Inspection of Upper Intestinal Tract, Via Natural or Artificial Opening Endoscopic (ICD-10-PCS; CPT 43235; principal; 2023-10-30 14:00)
DX: R10.13 Epigastric pain (principal); K92.0 Hematemesis; K21.00 Gastro-esophageal reflux disease with esophagitis, without bleeding; K44.9 Diaphragmatic hernia without obstruction or gangrene; J45.909 Unspecified asthma, uncomplicated; Z88.0 Allergy status to penicillin
CPT/HCPCS: 43239; 80307; 81025; 88305; 88313; 88342; J2250; J2704

== ENCOUNTER 2023-11-11 09:25 | Inpatient (IN) | payer OTHER, MEDICAID, SELFPAY ==
--- NOTE | ~2023-11-11 | XR_ITS ---
EXAMINATION: XR ABDOMEN COMPLETE CLINICAL INDICATION: Assess stool burden COMPARISON: None available. TECHNIQUE: 2 supine and upright views of the abdomen. FINDINGS: The bowel gas pattern is normal with no evidence of ileus or obstruction. There are no significant air-fluid levels. There is a moderate amount stool from cecum through the descending colon consistent with constipation. No unusual soft tissue calcifications are noted. The bones are unremarkable. Surgical clip is seen in the right lower quadrant. 2 coils project over the right ilium. A metallic ornament is seen in the region of the umbilicus. The upright view does not include dome of the diaphragm precluding evaluation for free air. XR/XR abdomen min 2V IMPRESSION: Moderate amount of stool from the cecum through the descending colon consistent with constipation.
[2023-11-11 09:30] VITALS: BP 113/80; PULSE 97; RESP 18; TEMP 36.6; O2SAT 97; BMI 31.7
[2023-11-11 10:00] VITALS: BP 110/58; PULSE 66; RESP 18; TEMP 37.1; O2SAT 95
--- NOTE | 2023-11-11 10:17 | ED.PSYCH ---
HPI - Psych General Chief Complaint: Psychiatric Symptoms Stated Complaint: Crisis SI Time Seen by Provider: 11/11/23 10:08 Source: patient and RN notes reviewed Mode of arrival: ambulatory Limitations: no limitations History of Present Illness ED Provider: Tiesha Ingram PA-C HPI Narrative: This is a 38-year-old female, with a history of bipolar disorder, PTSD, GERD, MDD, who presents emergency department with complaints of suicidal ideation with plan to jump out of her window. Patient states that she has been out of her medications for the last 3 weeks as her psychiatrist has retired. She states that over the last several weeks she has been very anxious and has had thoughts of harming herself which started yesterday. She informed her that she was experiencing these symptoms and was told to come to the emergency room. She also endorses epigastric burning sensation with associated nausea and vomiting. She denies any headaches, dizziness, blurred vision, chest pain, shortness of breath, diarrhea or constipation. No bloody or black stool. Denies alcohol or drug use. Reporting urinary frequency, no other urinary symptoms. No other complaints or concerns at this time. MD complaint: suicidal ideation and feels depressed Duration: constant History of same: Yes Relieving factors: none Exacerbating factors: medication Associated psychiatric symptoms: suicidal ideation Treatments prior to arrival: none If self harm: admits thoughts of self harm and has plan Details of plan: Jump out of window Related Data Home Medications ?Medication ?Instructions ?Recorded ?Confirmed fluticasone furoate 100 1 inh inhalation DAILY 10/07/23 11/11/23 mcg/actuation blister powder for inhalation (Arnuity Ellipta) benztropine 0.5 mg tablet 0.5 mg PO BID 11/11/23 11/11/23 sertraline 100 mg tablet 100 mg PO DAILY 11/11/23 11/11/23 Previous Rx's ?Medication ?Instructions ?Recorded albuterol sulfate 90 mcg/actuation 1 puff inhalation RQ4H PRN 07/04/23 aerosol inhaler (Ventolin HFA) Wheezing #1 inhaler ziprasidone HCl 20 mg capsule 20 mg PO BID PRN agitation #20 caps 07/25/23 docusate sodium 100 mg capsule 100 mg PO BID #30 caps 07/26/23 hydroxyzine pamoate 25 mg capsule 25 mg PO BID PRN anxiety #60 caps 07/26/23 omeprazole 20 mg capsule,delayed 20 mg PO BID@0630,1630 #30 caps 07/26/23 release olanzapine 10 mg tablet 20 mg (2 x 10 mg) PO BEDTIME 30 09/02/23 days #60 tabs prazosin 1 mg capsule 3 mg PO DAILY 30 days #90 caps 09/02/23 quetiapine 50 mg tablet 50 mg PO TID 30 days #90 tabs 09/02/23 sucralfate 1 gram tablet 1 g PO QIDACHS #0 tabs 09/02/23 trazodone 100 mg tablet 250 mg (2.5 x 100 mg) PO BEDTIME 09/02/23 30 days #75 tabs Allergies Allergy/AdvReac Type Severity Reaction Status Date / Time almond Allergy Severe Anaphylaxis Verified 11/11/23 09:31 Penicillins Allergy Severe Anaphylaxis Verified 11/11/23 09:31 shrimp Allergy Severe Anaphylaxis Verified 11/11/23 09:31 peanuts Allergy Severe Anaphylaxis Uncoded 11/11/23 09:31 Review of Systems Review of Systems: Yes all other systems are reviewed and are negative Constitutional: Constitutional: Reports as per [facility] Past Medical History Attestation statement: The following information was validated with the patient. Medical History Substance abuse Bipolar disorder Anxiety Depression Anxiety and depression Nausea & vomiting History of irregular heartbeat Acute posttraumatic stress disorder UTI (urinary tract infection) Asthma exacerbation Surgical History History of surgery Hx of section Social History Social History Household Members: Unknown / Unable to assess Household Members Other:: Every other week, partners 2 children come to stay with him Saturday- Saturday Housing: Apartment Do you presently have visiting nurse or other home services: No Alcohol intake: former Patient Tobacco Use Status: Former Tobacco user Quit Date: 2 years Smoked in Last 30 Days: No e-Cigarette/Vaping Use: Former Use Second Hand Smoke Exposure: Yes Use of substances other than those prescribed or required for medical reasons: Yes Substance Use Type: Marijuana Substance Use Frequency: Daily Last Used Substance: Days (ago) Any prior treatment program specific to substance use: No Advance Directives: No Advance Directives Information Provided: No Do you have a plan to hurt others: No Plan Patient : No service: No Sexual orientation: Straight/Heterosexual Physical Exam Vital Signs: Vital Signs: Last Vital Signs Temp 97.7 F 11/12/23 06:44 Pulse 67 11/12/23 06:44 Resp 18 11/12/23 06:44 BP 117/58 L 11/12/23 06:44 Pulse Ox 98 11/12/23 06:44 O2 Del Method Room Air 11/12/23 06:44 BMI result Body Mass Index 31.7 Const: General: cooperative, comfortable and no acute distress Orientation/consciousness: patient oriented x3 Limitations: no limitations HEENT: Head: Yes normal to inspection, Yes normocephalic and Yes atraumatic Ears: hearing grossly normal bilaterally General nose exam: Normal external nose present Face and sinus: Yes normal facial exam Mouth: Normal oral and palatal mucosa present, oropharynx normal and moist mucous membranes Throat: Yes posterior oropharynx normal Eyes: General: appearance normal, both eyes and all related structures Eyelids: Yes eyelids normal Conjunctivae: conjunctivae normal Sclerae: sclerae normal Pupils: Equal, round and reactive pupils present EOM: EOMs intact bilaterally Neck: Neck: Yes normal visual inspection, Yes full ROM and Yes no lymphadenopathy Lymphatic: no lymphadenopathy noted Chest: Chest palpation & inspection: normal inspection of the chest Resp: Effort & Inspection: normal respiratory effort and able to speak in complete sentences Auscultation: clear to auscultation bilaterally, no crackles, no rales, no rhonchi and no wheezes Cardio: Rate: regular rate Rhythm: regular rhythm Heart sounds: S1 normal heart sound present and S2 normal heart sound present GI: Inspection: Yes normal to inspection Skin: General skin exam: no rashes or lesions noted Trauma: no lacerations or abrasions Wounds: no wounds Neuro: General: patient oriented x3 and moves all extremities Cranial nerves: Yes Equal, round and reactive pupils present Extrem: General: Yes normal to inspection Right upper extremity: normal to inspection Left upper extremity: normal to inspection Right lower extremity: normal to inspection Left lower extremity: normal to inspection Course Reevaluation(s) Reevaluation #1: Labs and urine returns, patient has slight leukocytosis at 14.6, likely reactive secondary to increasing anxiety. Patient feeling better after receiving Zofran and Maalox with lidocaine. Viral swabs negative. EKG nondiagnostic. Does not require repeat troponin as epigastric pain has been occurring for several days. Urine appears to be contaminated > will await culture for ?UTI. She only has urinary frequency. At this time, patient is medically cleared. Patient placed in physician observation pending care team consult Time: 13:28 Reevaluation #2: Physician observation continued. No acute events overnight, voluntary bed search. VS stable. will continue to monitor. 11/12/23 11am Medications Administered Generic Name Dose Route Start Last Admin Trade Name Freq PRN Reason Stop Dose Admin Benztropine Mesylate 0.5 mg 11/11/23 14:45 11/12/23 08:06 Benztropine Mesylate 0.5 Mg Tablet PO 0.5 mg BID SERENA Administration Docusate Sodium 100 mg 11/11/23 14:45 11/12/23 08:05 Docusate Sodium 100 Mg Capsule PO 100 mg BID SERENA Administration Pt Own (Fluticasone 1 inhalation 11/11/23 18:30 11/12/23 08:05 Furoate [Arnuity INHALE 1 inhalation Ellipta] 100 Mcg/ DAILY SERENA Administration Actuation Blister Olanzapine 20 mg 11/11/23 21:00 11/11/23 19:48 Olanzapine 10 Mg Tablet PO 20 mg BEDTIME SERENA Administration Omeprazole 20 mg 11/11/23 16:30 11/12/23 08:06 Omeprazole 20 Mg Capsule. PO 20 mg BID@0630,1630 SERENA Administration Prazosin HCl 3 mg 11/11/23 14:45 11/12/23 08:06 Prazosin Hcl 1 Mg Capsule PO 3 mg DAILY SERENA Administration Protocol Quetiapine Fumarate 50 mg 11/11/23 15:00 11/12/23 08:06 Quetiapine Fumarate 50 Mg Tablet PO 50 mg TID SERENA Administration Sertraline HCl 100 mg 11/11/23 14:45 11/12/23 08:06 Sertraline Hcl 100 Mg Tablet PO 100 mg DAILY SERENA Administration Sucralfate 1 gm 11/11/23 16:30 11/12/23 08:06 Sucralfate 1 Gm Tablet PO 1 gm QIDACHS SERENA Administration Trazodone HCl 250 mg 11/11/23 21:00 11/11/23 19:48 Trazodone Hcl 50 Mg Tablet PO 250 mg BEDTIME SERENA Administration Discontinued Medications Generic Name Dose Route Start Last Admin Trade Name Serena PRN Reason Stop Dose Admin Al Hydroxide/Mg Hydroxide 30 ml 11/11/23 11:01 11/11/23 11:11 Magnesium Hydrox/Alum Hydrox 30 Ml Oral.Susp PO 11/11/23 11:02 30 ml ONCE ONE Administration Lidocaine HCl 15 ml 11/11/23 11:01 11/11/23 11:11 Lidocaine Hcl Viscous 2 % 15 Ml Solution MUCOUS MEM 11/11/23 11:02 15 ml ONCE ONE Administration Lorazepam 1 mg 11/11/23 10:23 11/11/23 10:28 Lorazepam 1 Mg Tablet PO 11/11/23 10:24 1 mg ONCE ONE Administration Ondansetron HCl 4 mg 11/11/23 11:11/11/23 11:11 Ondansetron Odt 4 Mg Tab.Rapdis TRANSLINGU 11/11/23 11:02 4 mg ONCE ONE Administration Medical Decision Making Medical Decision Making [facility] Narrative: This is a 38-year-old female, with a history of bipolar disorder, PTSD, GERD, MDD, who presents emergency department with complaints of suicidal ideation with plan to jump out of her window. On arrival, pt anxious appearing. VSS. She is cooperative alert and A&Ox4. Has been without her psych medications for 3 weeks. She is also endorsing epigastric burning and GERD symptoms which she has had for several days.Lungs CTA, abdomen soft, NTTP. Plan: Labs, EKG, Differential Diagnosis Differential Diagnoses: The differential diagnosis associated with the presentation includes SI, HI, anxiety, depression Admission/Observation Consideration of admission/observation: Escalation of care including admission/observation considered pt requiring psych admission Lab Data [facility] Lab Attestation statement: I reviewed the patient's lab results. Slight leukocytosis at 14.6, likely reactive due to anxiety. chemistry nondiagnostic, trop neg. urine contaminated - unable to discern if infectious, will await culture 11/11/23 10:33 11/11/23 10:33 Labs: Lab Results 11/11/23 11/11/23 Range/Units 10: 13:39 WBC 14.6 H (4.8-10.8) X10*3/uL RBC 5.20 (4.20-5.50) X10*6/uL Hgb 12.6 (12.0-16.0) g/dl Hct 38.5 (37.0-47.0) % MCV 74.0 L (80.0-98.0) fL MCH 24.2 L (27.0-33.0) pg MCHC 32.7 (31.0-35.0) g/dl RDW 14.7 (11.0-16.0) % Plt Count 469 H (160-400) X10*3/uL MPV 9.9 (9.4-12.3) fL Immature Gran % (Auto) 0.5 H (0.0-0.4) % Neut % (Auto) 86.5 H (45-73) % Lymph % (Auto) 9.3 L (20-40) % [place] % (Auto) 3.3 (2-11) % Eos % (Auto) 0.2 (0-4) % Baso % (Auto) 0.2 (0-2) % Lymph # (Auto) 1.4 (1.2-4.9) X10*3/uL [place] # (Auto) 0.5 (0.1-1.2) X10*3/uL Eos # (Auto) 0.0 (0.0-0.4) X10*3/uL Baso # (Auto) 0.0 (0.0-0.2) X10*3/uL Abs Immat Gran (auto) 0.08 H (0.00-0.03) X10*3/uL Absolute Neuts (auto) 12.6 H (2.0-8.3) x10*3/uL Absolute Nucleated RBC 0.000 (0.0-0.012) X10*3/uL Nucleated RBC % (auto) 0.0 (0.0-0.2) /100WBC Sodium 142 (135-145) mmol/L Potassium 4.2 (3.3-5.1) mmol/L Chloride 109 H (96-108) mmol/L Carbon Dioxide 25 (22-29) mmol/L Anion Gap 12 (12-20) BUN 16 (9-16) mg/dL Creatinine 0.84 (0.5-1.4) mg/dL Estim Creat Clear Calc 113.9 Estimated GFR > 60 Random Glucose 112 (60-115) mg/dL Calcium 9.9 (8.4-10.2) mg/dL Total Bilirubin 0.8 (0.0-1.0) mg/dL Direct Bilirubin 0.3 (0.0-0.5) mg/dL AST 20 (5-31) U/L ALT 27 (0-31) U/L Alkaline Phosphatase 114 (39-117) U/L Troponin I High Sens < 2.7 (<3.5-17.0) ng/L Total Protein 8.7 H (6.5-8.0) g/dL Albumin 4.6 (3.5-5.0) g/dL Lipase 20 (8-78) U/L Urine Color Dark Yellow Yellow Urine Appearance Cloudy Cloudy Urine pH 6.5 7.0 (5.0-9.0) Ur Specific [place] >= 1.030 H >= 1.030 H (1.005-1.025) Urine Protein 30 (1+) H Negative (Neg-Trace) mg/dL Urine Glucose (UA) Negative Negative (Negative) mg/dL Urine Ketones Trace Trace (Negative) mg/dL Urine Blood Moderate (2+) H Small (1+) H (Negative) Urine Nitrite Negative Negative (Negative) Ur Leukocyte Esterase Trace H Negative (Negative) Urine RBC >20 H >20 H (0-2) /HPF Urine WBC 0-5 0-5 (0-5) /HPF Ur Squamous Epith Cells >20 11-20 (0-2) /HPF Urine Bacteria 3+ 2+ (None Seen) Hyaline Casts 0-2 0-2 (0-2) /LPF Urine Test NEGATIVE (NEGATIVE) Urine Opiates Screen Not Detected (Not Detect) Ur Buprenorphine Scrn Not Detected (Not Detect) ng/mL Ur Oxycodone Screen Not Detected (Not Detect) ng/mL Urine Methadone Screen Not Detected (Not Detect) ng/mL Urine Fentanyl Screen Not Detected (Not Detect) Ur Barbiturates Screen Not Detected (Not Detect) Ur Phencyclidine Scrn Not Detected (Not Detect) Ur Amphetamines Screen Not Detected (Not Detect) U Benzodiazepines Scrn Not Detected (Not Detect) Urine Cocaine Screen POSITIVE H (Not Detect) U Marijuana (THC) Screen POSITIVE H (Not Detect) Influenza Type A (PCR) NEGATIVE (Negative) Influenza Type B (PCR) NEGATIVE (Negative) RSV RNA Qual (PCR) NEGATIVE (Negative) SARS-CoV-2 RNA (RT-PCR) NEGATIVE (Negative) Independent Interpretation I performed an independent interpretation of an: EKG Interpretation: Test Reason : QT INTERVAL Blood Pressure : / mmHG Vent. Rate : 061 BPM Atrial Rate : 061 BPM P-R Int : 130 ms QRS Dur : 076 ms QT Int : 398 ms P-R-T Axes : -07 065 058 degrees QTc Int : 400 ms Normal sinus rhythm Normal ECG When compared with ECG of 23-AUG-2023 12:39, No significant change was found NSR at a ventricular rate of 61bpm, MO interval 130, qtc 400, no st elevation or depression Discharge Plan Discharge Clinical Impression: Anxiety, Suicide ideation Prescriptions: No Action albuterol sulfate [Ventolin HFA] 90 mcg/actuation Hfa Aerosol Inhaler 1 puff inhalation RQ4H PRN (Reason: Wheezing) Qty: 1 0RF ziprasidone HCl 20 mg capsule 20 mg PO BID PRN (Reason: agitation) Qty: 20 0RF Rx Instructions: give with food (meal/snack) docusate sodium 100 mg Capsule 100 mg PO BID Qty: 30 0RF omeprazole 20 mg Capsule,Delayed Release(Dr/Ec) 20 mg PO BID@0630,1630 Qty: 30 0RF hydroxyzine pamoate 25 mg capsule 25 mg PO BID PRN (Reason: anxiety) Qty: 60 0RF prazosin 1 mg Capsule 3 mg PO DAILY 30 Days Qty: 90 0RF Protocol: Hold for SBP< HOLD for SBP < : 90 sucralfate 1 gram Tablet 1 g PO QIDACHS Qty: 0 0RF olanzapine 10 mg Tablet 20 mg PO BEDTIME 30 Days Qty: 60 0RF trazodone 100 mg Tablet 250 mg PO BEDTIME 30 Days Qty: 75 0RF quetiapine 50 mg Tablet 50 mg PO TID 30 Days Qty: 90 0RF Arnuity Ellipta 100 mcg/actuation blister with device 1 inh INHALATION DAILY benztropine 0.5 mg tablet 0.5 mg PO BID sertraline 100 mg tablet 100 mg PO DAILY Interventions: [place]-Suicide Risk Severity Scale Last Done: 11/11/23 09:52 Print Language: Somali
--- NOTE | 2023-11-11 10:23 | ECG_ITS ---
Test Reason : QT INTERVAL Blood Pressure : / mmHG Vent. Rate : 061 BPM Atrial Rate : 061 BPM P-R Int : 130 ms QRS Dur : 076 ms QT Int : 398 ms P-R-T Axes : -07 065 058 degrees QTc Int : 400 ms Normal sinus rhythm Normal ECG When compared with ECG of 23-AUG-2023 12:39, No significant change was found Referred By: Tiesha Ingram Electronically Signed By:CRISTHIAN LANDAVERDE
[2023-11-11] MEDS: LORazepam 1 MG TABLET PO (10:28)
[2023-11-11 10:38] LABS: MANUAL DIFF FLAG NO
[2023-11-11 10:42] LABS: Appearance Urine Cloudy; Color Urine Dark Yellow; Glucose Urine UA Negative (Negative); Leukocyte Esterase Urine Trace (Negative); Nitrite Urine Negative (Negative); PH 6.5 (5.0-9.0); Specific Gravity - Urine >= 1.030 (1.005-1.025); UMIC TRIGGER UACC YES; Urine Blood Moderate (2+) (Negative); Urine Ketones Trace mg/dL (Negative); Urine Protein 30 (1+) mg/dL (Neg-Trace)
[2023-11-11 10:44] LABS: Bacteria Urine 3+ (None Seen); Hyaline Casts Urine 0-2 /LPF (0-2); RBC Urine >20 /HPF (0-2); Squamous Epithelial Cell Urine >20 /HPF (0-2); WBC Urine 0-5 /HPF (0-5)
[2023-11-11 10:49] LABS: Basophils Percent Auto 0.2 % (0-2); Eosinophils Percent Auto 0.2 % (0-4); Hematocrit 38.5 % (37.0-47.0); Hemoglobin 12.6 g/dl (12.0-16.0); Imm Gran Abs Auto 0.08 X10*3/uL (0.00-0.03); Imm Gran Pct Auto 0.5 % (0.0-0.4); Lymphocytes Absolute Auto 1.4 X10*3/uL (1.2-4.9); Lymphocytes Percent Auto 9.3 % (20-40); Mean Corpuscular HGB Conc 32.7 g/dl (31.0-35.0); Mean Corpuscular Hemoglobin 24.2 pg (27.0-33.0); Mean Platelet Volume 9.9 fL (9.4-12.3); Monocytes Absolute Auto 0.5 X10*3/uL (0.1-1.2); Monocytes Percent Auto 3.3 % (2-11); Neutrophils Absolute Auto 12.6 x10*3/uL (2.0-8.3); Neutrophils Percent Auto 86.5 % (45-73); Platelet Count 469 X10*3/uL (160-400); Red Cell Distribution Width 14.7 % (11.0-16.0); White Blood Count 14.6 X10*3/uL (4.8-10.8)
[2023-11-11 10:54] LABS: Alanine Aminotransferase 27 U/L (0-31); Albumin Level 4.6 g/dL (3.5-5.0); Alkaline Phosphatase 114 U/L (39-117); Anion Gap 12 (12-20); Aspartate Amino Transferase 20 U/L (5-31); Bilirubin Direct 0.3 mg/dL (0.0-0.5); Bilirubin Total 0.8 mg/dL (0.0-1.0); Blood Urea Nitrogen 16 mg/dL (9-16); Calcium 9.9 mg/dL (8.4-10.2); Carbon Dioxide 25 mmol/L (22-29); Chloride 109 mmol/L (96-108); Creatinine Clr Calc Pharmacy 113.9; Estimated Glomerular Filt Rate > 60; Glucose Random 112 mg/dL (60-115); Lipase 20 U/L (8-78); Potassium 4.2 mmol/L (3.3-5.1); Sodium 142 mmol/L (135-145); Total Protein 8.7 g/dL (6.5-8.0)
[2023-11-11 11:00] LABS: Troponin-I High Sensitivity < 2.7 ng/L (<3.5-17.0)
[2023-11-11] MEDS: Ondansetron ODT 4 MG TAB.RAPDIS TRANSLINGU (11:11)
[2023-11-11] MEDS: Lidocaine HCl Viscous 2 % 15 ML SOLUTION MUCOUS MEM (11:11)
[2023-11-11] MEDS: Magnesium Hydrox/Alum Hydrox 30 ML ORAL.SUSP PO (11:11)
[2023-11-11 11:20] LABS: Influenza A PCR NEGATIVE (Negative); Influenza B PCR NEGATIVE (Negative); Resp Syncy Virus RNA Qual PCR NEGATIVE (Negative); SARS COV2 PCR INHOUSE NEGATIVE (Negative)
[2023-11-11 13:49] LABS: Appearance Urine Cloudy; Color Urine Yellow; Glucose Urine UA Negative (Negative); Leukocyte Esterase Urine Negative (Negative); Nitrite Urine Negative (Negative); Specific Gravity - Urine >= 1.030 (1.005-1.025); UMIC TRIGGER UACC YES; Urine Blood Small (1+) (Negative); Urine Ketones Trace mg/dL (Negative); Urine Protein Negative (Neg-Trace)
[2023-11-11 13:50] LABS: UPreg QC Valid YES; Urine Pregnancy NEGATIVE (NEGATIVE)
[2023-11-11 13:51] LABS: Bacteria Urine 2+ (None Seen); Hyaline Casts Urine 0-2 /LPF (0-2); RBC Urine >20 /HPF (0-2); WBC Urine 0-5 /HPF (0-5)
[2023-11-11 13:57] LABS: Amphetamine Screen Urine Not Detected (Not Detect); Barbiturates, Urine Not Detected (Not Detect); Benzodiazepines Screen Urine Not Detected (Not Detect); Buprenorphine Scr Not Detected (Not Detect); Cannabinoid Screen Urine POSITIVE (Not Detect); Cocaine Screen Urine POSITIVE (Not Detect); Fentanyl, urine Not Detected (Not Detect); Methadone Screen, Urine Not Detected (Not Detect); Opiate Screen Urine Not Detected (Not Detect); Oxycodone Screen Urine Not Detected (Not Detect); Phencyclidine Screen Urine Not Detected (Not Detect)
--- NOTE | 2023-11-11 14:50 | PHA.MEDREC ---
Pharmacy Consult ? Medication Reconciliation Pharmacy has completed the medication reconciliation. Reviewed med rec done by nursing
[2023-11-11] MEDS: Prazosin HCL 1 MG CAPSULE 3 MG PO (15:05)
[2023-11-11] MEDS: Benztropine Mesylate 0.5 MG TABLET PO ×2 (15:05→19:49)
[2023-11-11] MEDS: Sertraline HCL 100 MG TABLET PO (15:05)
[2023-11-11] MEDS: Docusate Sodium 100 MG CAPSULE PO ×2 (15:06→19:48)
[2023-11-11] MEDS: QUEtiapine Fumarate 50 MG TABLET PO ×2 (15:06→19:48)
--- NOTE | 2023-11-11 15:44 | PC.NURSE ---
Medication Communication Pharmacy requesting patient bring in Arnuity inhaler from home. Informed patient of request. Patient informed RN that she will contact her to have it brought it. Will pass on in report.
[2023-11-11 16:20] VITALS: BP 121/48; PULSE 82; TEMP 37.3; O2SAT 98
[2023-11-11] MEDS: Sucralfate 1 GM TABLET PO ×2 (16:28→19:48)
[2023-11-11] MEDS: Omeprazole 20 MG CAPSULE.DR PO (16:28)
[2023-11-11] MEDS: traZODone HCL 50 MG TABLET 250 MG PO (19:48)
[2023-11-11] MEDS: OLANZapine 10 MG TABLET 20 MG PO (19:48)
--- NOTE | 2023-11-12 06:34 | PC.NURSE ---
Patient slept through the night, meds and meals compliant, denied SI/HI/AVH, no other distress observed/reported, VSS, patient was assessed by care team disposition is voluntary inpatient bed search, will continue to monitor.
[2023-11-12 06:44] VITALS: BP 117/58; PULSE 67; RESP 18; TEMP 36.5; O2SAT 98
[2023-11-12] MEDS: Docusate Sodium 100 MG CAPSULE PO ×2 (08:05→20:56)
[2023-11-12] MEDS: Benztropine Mesylate 0.5 MG TABLET PO ×2 (08:06→20:56)
[2023-11-12] MEDS: Sucralfate 1 GM TABLET PO ×4 (08:06→20:56)
[2023-11-12] MEDS: QUEtiapine Fumarate 50 MG TABLET PO ×3 (08:06→20:57)
[2023-11-12] MEDS: Prazosin HCL 1 MG CAPSULE 3 MG PO (08:06)
[2023-11-12] MEDS: Omeprazole 20 MG CAPSULE.DR PO ×2 (08:06→17:06)
[2023-11-12] MEDS: Sertraline HCL 100 MG TABLET PO (08:06)
--- NOTE | 2023-11-12 08:49 | PC.NURSE ---
Assumed care of patient at 0645, patient appears to be in no apparent distress this am. Took morning medications without issue and ate breakfast. Continue plan of care for inpatient admission
[2023-11-12] MEDS: hydrOXYzine HCL 25 MG TABLET PO (11:38)
[2023-11-12 14:19] VITALS: RESP 16
[2023-11-12] MEDS: Ondansetron ODT 4 MG TAB.RAPDIS TRANSLINGU (15:01)
[2023-11-12 15:23] VITALS: BP 107/63; PULSE 87; RESP 20; TEMP 37.1; O2SAT 95
[2023-11-12] MEDS: Ibuprofen 600 MG TABLET PO (17:06)
--- NOTE | 2023-11-12 17:34 | PC.NURSE ---
Patient continues to have relatively uneventful day, reporting back pain and some anxiety, both medicated per MAR. Patient aware of plan of care for continued inpatient bedsearch
--- NOTE | 2023-11-12 19:10 | PC.NURSE ---
patient appears to remain at rest at present respirations are even and unlabored patient appears in no distress
[2023-11-12 20:53] VITALS: BP 112/71; PULSE 73; RESP 16; TEMP 36.4; O2SAT 97
[2023-11-12] MEDS: traZODone HCL 50 MG TABLET 250 MG PO (20:56)
[2023-11-12] MEDS: OLANZapine 10 MG TABLET 20 MG PO (20:57)
[2023-11-13 07:22] VITALS: RESP 16
--- NOTE | 2023-11-13 07:23 | PC.NURSE ---
Assumed care of patient at 0645, patient appears to be sleeping, respirations even and unlabored, no apparent distress noted. Continue plan of care for inpatient bedsearch
[2023-11-13] MEDS: Omeprazole 20 MG CAPSULE.DR PO ×2 (07:32→16:02)
[2023-11-13] MEDS: Sucralfate 1 GM TABLET PO ×4 (07:32→20:43)
[2023-11-13] MEDS: QUEtiapine Fumarate 50 MG TABLET PO ×3 (08:46→20:42)
[2023-11-13] MEDS: Prazosin HCL 1 MG CAPSULE 3 MG PO ×2 (08:46→20:44)
[2023-11-13] MEDS: Benztropine Mesylate 0.5 MG TABLET PO ×2 (08:46→20:41)
[2023-11-13] MEDS: Sertraline HCL 100 MG TABLET PO (08:46)
[2023-11-13] MEDS: Docusate Sodium 100 MG CAPSULE PO ×2 (08:54→20:42)
[2023-11-13] MEDS: Ziprasidone 20 MG CAPSULE PO ×2 (09:09→20:45)
[2023-11-13 11:30] VITALS: BP 113/71; PULSE 70; RESP 18; TEMP 36.8; O2SAT 98
[2023-11-13] MEDS: Capsaicin 0.025% Cream 60 GM TUBE 1 APPL TOPICAL (13:12)
[2023-11-13] MEDS: Nicotine Polacrilex 2 MG GUM BUCCAL ×2 (13:12→20:44)
[2023-11-13] MEDS: Nicotine 14 MG PATCH.TD24 TRANSDERMA (13:32)
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
[2023-11-13] MEDS: polyethylene glycoL 3350 17 GM POWD.PACK PO (15:05)
[2023-11-13] MEDS: Acetaminophen 325 MG TABLET 650 MG PO (17:28)
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
[2023-11-13 20:40] VITALS: BP 124/73; PULSE 78; RESP 18; TEMP 36.8; O2SAT 98
[2023-11-13] MEDS: traZODone HCL 50 MG TABLET 250 MG PO (20:42)
[2023-11-13] MEDS: OLANZapine 10 MG TABLET 20 MG PO (20:42)
[2023-11-13] MEDS: Albuterol Sulfate 90 MCG 8 GM INHALER 1 PUFF INHALE (20:45)
[2023-11-14 07:00] VITALS: BMI 30.6
[2023-11-14] MEDS: Omeprazole 20 MG CAPSULE.DR PO ×2 (07:23→17:38)
[2023-11-14] MEDS: Sucralfate 1 GM TABLET PO ×4 (07:23→20:25)
[2023-11-14 07:39] VITALS: BP 118/74; PULSE 115; RESP 16; TEMP 36.6; O2SAT 99
[2023-11-14 07:47] VITALS: PULSE 88
[2023-11-14] MEDS: Albuterol Sulfate 90 MCG 8 GM INHALER 1 PUFF INHALE ×2 (08:12→20:35)
[2023-11-14] MEDS: Nicotine 14 MG PATCH.TD24 TRANSDERMA (08:13)
[2023-11-14] MEDS: Docusate Sodium 100 MG CAPSULE PO ×2 (08:13→20:25)
[2023-11-14] MEDS: QUEtiapine Fumarate 50 MG TABLET PO ×3 (08:13→20:25)
[2023-11-14] MEDS: Sertraline HCL 100 MG TABLET PO (08:13)
[2023-11-14] MEDS: Benztropine Mesylate 0.5 MG TABLET PO (08:13)
[2023-11-14] MEDS: polyethylene glycoL 3350 17 GM POWD.PACK PO (08:14)
[2023-11-14] MEDS: Nicotine Polacrilex 2 MG GUM BUCCAL ×2 (09:30→19:14)
[2023-11-14] MEDS: hydrOXYzine HCL 25 MG TABLET PO (09:30)
[2023-11-14] MEDS: QUEtiapine Fumarate 100 MG TABLET PO ×2 (10:47→22:11)
[2023-11-14] MEDS: Fluticasone/Vilanterol 100/25 BLST.W.DEV 1 PUFF INHALE (10:49)
[2023-11-14] MEDS: Mineral OiL enema 133 ML ENEMA PR (10:54)
--- NOTE | 2023-11-14 12:35 | HO.PSYCHPN ---
Subjective Subjective Date of Service: 11/14/23 Reason For Visit: SI Interim History: c/o nightmares, waking up drenched in sweat. agreeable to increase prazosin to 4 mg. also c/o constipation, enema ordered. agreable to DC cogentin as likely not needed and as causing constipation. also agreeable to use seroquel PRN anxiety and DC geodon. per staff, worsened PTSD Sx. slept 8 hours overnight. constipation. Mental Status Exam Mental Status Exam Narrative: Pleasant. Engaged. adequately dressed and groomed. Alert and oriented. no PMA/PMR. speech nml rate and amount, nml ZANDRA. thoughts linear and logical. affect non-labile, constricted. mood depressed and anxious. +passive SI. seeing shadows. no HI/AH expressed. Diagnostics Vital Signs (24Hr): Vital Signs - 24 hr 11/13/23 20:40 11/14/23 07:39 11/14/23 07:47 Temperature 98.3 F 97.8 F Pulse Rate 78 115 H 88 Respiratory Rate 18 16 Blood Pressure 124/73 118/74 Pulse Oximetry 98 99 Oxygen Delivery Method Room Air Room Air BMI result Body Mass Index 30.6 Labs 11/11/23 10:33 11/11/23 10:33 Medications Medications Current Medications Acetaminophen (Acetaminophen 325 Mg Tablet) 650 mg PO Q6H PRN PRN Reason: Headache/Pain Mild Scale (1-3) Last Admin: 11/13/23 17:28 Dose: 650 mg Al Hydroxide/Mg Hydroxide (Magnesium Hydrox/Alum Hydrox 30 Ml Oral.Susp) 30 ml PO Q6H PRN PRN Reason: Heartburn/Nausea Albuterol Sulfate (Albuterol Sulfate 90 Mcg 8 Gm Inhaler) 1 puff INHALE RQ4H PRN PRN Reason: Wheezing Last Admin: 11/14/23 08:12 Dose: 1 puff Capsaicin (Capsaicin 0.025% Cream 60 Gm Tube) 1 appl TOPICAL QID PRN; Protocol PRN Reason: Pain, Moderate(Pain Scale 4-6) Last Admin: 11/13/23 13:12 Dose: 1 appl Docusate Sodium (Docusate Sodium 100 Mg Capsule) 100 mg PO BID SERENA Last Admin: 11/14/23 08:13 Dose: 100 mg Fluticasone/Vilanterol (Fluticasone/Vilanterol 100/25 Blst.W.Dev) 1 puff INHALE RDAILY REPLACED BY [facility] Last Admin: 11/14/23 10:49 Dose: 1 puff Hydroxyzine HCl (Hydroxyzine Hcl 50 Mg Tablet) 50 mg PO BID PRN PRN Reason: anxiety Magnesium Hydroxide (Milk Of Magnesia 30 Ml Oral.Susp) 30 ml PO DAILY PRN PRN Reason: Constipation Nicotine (Nicotine 14 Mg Patch.Td24) 14 mg TRANSDERMA DAILY REPLACED BY [facility] Last Admin: 11/14/23 08:13 Dose: 14 mg Nicotine Polacrilex (Nicotine Polacrilex 2 Mg Gum) 2 mg BUCCAL Q2H PRN PRN Reason: Nicotine Cravings Last Admin: 11/14/23 09:30 Dose: 2 mg Pt Own (Fluticasone Furoate [Arnuity Ellipta] 100 Mcg/Actuation Blister 1 inhalation INHALE DAILY REPLACED BY [facility] Last Admin: 11/14/23 10:44 Dose: Not Given Olanzapine (Olanzapine 10 Mg Tablet) 20 mg PO BEDTIME REPLACED BY [facility] Last Admin: 11/13/23 20:42 Dose: 20 mg Omeprazole (Omeprazole 20 Mg Capsule.Dr) 20 mg PO BID@0630,1630 REPLACED BY [facility] Last Admin: 11/14/23 07:23 Dose: 20 mg Polyethylene Glycol (Polyethylene Glycol 3350 17 Gm Powd.Pack) 17 gm PO DAILY PRN PRN Reason: constipation Last Admin: 11/14/23 08:14 Dose: 17 gm Prazosin HCl (Prazosin Hcl 1 Mg Capsule) 4 mg PO BEDTIME REPLACED BY [facility]; Protocol Quetiapine Fumarate (Quetiapine Fumarate 50 Mg Tablet) 50 mg PO TID REPLACED BY [facility] Last Admin: 11/14/23 08:13 Dose: 50 mg Quetiapine Fumarate (Quetiapine Fumarate 100 Mg Tablet) 100 mg PO BID PRN PRN Reason: severe anxiety Last Admin: 11/14/23 10:47 Dose: 100 mg Sertraline HCl (Sertraline Hcl 100 Mg Tablet) 100 mg PO DAILY REPLACED BY [facility] Last Admin: 11/14/23 08:13 Dose: 100 mg Sucralfate (Sucralfate 1 Gm Tablet) 1 gm PO QIDACHS REPLACED BY [facility] Last Admin: 11/14/23 10:47 Dose: 1 gm Trazodone HCl (Trazodone Hcl 50 Mg Tablet) 250 mg PO BEDTIME REPLACED BY [facility] Last Admin: 05/29/24 20:42 Dose: 250 mg Allergies Allergies Allergy/AdvReac Type Severity Reaction Status Date / Time almond Allergy Severe Anaphylaxis Verified 11/11/23 09:31 Penicillins Allergy Severe Anaphylaxis Verified 11/11/23 09:31 shrimp Allergy Severe Anaphylaxis Verified 11/11/23 09:31 peanuts Allergy Severe Anaphylaxis Uncoded 11/11/23 09:31 Assessment & Plan Assessment & Plan (1) Cocaine abuse: Status: Acute Code(s): F14.10 - Cocaine abuse, uncomplicated (2) Cannabis abuse: Status: Acute Code(s): F12.10 - Cannabis abuse, uncomplicated (3) PTSD (post-traumatic stress disorder): Status: Acute Code(s): F43.10 - Post-traumatic stress disorder, unspecified (4) MDD (major depressive disorder), recurrent episode: Status: Acute Code(s): F33.9 - Major depressive disorder, recurrent, unspecified Plan 11/12: restart home medications. stabilize inpatient. T/C PHP at discharge. 11/13: PEG and enema unsuccessful for constipation. KUB today. increase prazosin to 4 mg QHS for nightmares. DC cogentin as not indicated and constipating. D/C geodon PRN anxiety/agitation in favor of seroquel trial. Reason for continued inpatient stay Substantial Risk for: harm to self, inability to function and rapid decompensation Time Spent With Patient Time: Total time managing care of this patient today _35___ minutes.
[2023-11-14] MEDS: Capsaicin 0.025% Cream 60 GM TUBE 1 APPL TOPICAL (13:26)
[2023-11-14] MEDS: Acetaminophen 325 MG TABLET 650 MG PO (14:52)
[2023-11-14] MEDS: Milk of Magnesia 30 ML ORAL.SUSP PO (17:45)
[2023-11-14 20:10] VITALS: BP 114/72; PULSE 76; RESP 18; TEMP 36.7; O2SAT 97
[2023-11-14] MEDS: OLANZapine 10 MG TABLET 20 MG PO (20:25)
[2023-11-14] MEDS: Lactulose 20 GM/30 ML SOLUTION 30 GM PO (20:25)
[2023-11-14] MEDS: Prazosin HCL 1 MG CAPSULE 4 MG PO (20:25)
[2023-11-14] MEDS: TRAZODONE HCL 250 MG PO (20:36)
[2023-11-15] MEDS: Omeprazole 20 MG CAPSULE.DR PO ×2 (07:13→16:32)
[2023-11-15] MEDS: Sucralfate 1 GM TABLET PO ×4 (07:15→20:09)
[2023-11-15 08:00] VITALS: BP 98/64; PULSE 132; RESP 20; TEMP 36.7; O2SAT 99
[2023-11-15 08:30] VITALS: PULSE 94
[2023-11-15] MEDS: Docusate Sodium 100 MG CAPSULE PO ×2 (08:33→20:10)
[2023-11-15] MEDS: Sertraline HCL 100 MG TABLET PO (08:34)
[2023-11-15] MEDS: QUEtiapine Fumarate 50 MG TABLET PO ×3 (08:34→20:09)
[2023-11-15] MEDS: Fluticasone/Vilanterol 100/25 BLST.W.DEV 1 PUFF INHALE (08:35)
[2023-11-15] MEDS: Nicotine 14 MG PATCH.TD24 TRANSDERMA (08:35)
[2023-11-15] MEDS: Lactulose 20 GM/30 ML SOLUTION 30 GM PO ×3 (08:36→20:12)
[2023-11-15] MEDS: QUEtiapine Fumarate 100 MG TABLET PO (09:46)
[2023-11-15] MEDS: hydrOXYzine HCL 50 MG TABLET PO (12:13)
[2023-11-15] MEDS: Nicotine Polacrilex 2 MG GUM BUCCAL ×2 (12:31→16:41)
[2023-11-15] MEDS: Acetaminophen 325 MG TABLET 650 MG PO (12:37)
[2023-11-15] MEDS: Capsaicin 0.025% Cream 60 GM TUBE 1 APPL TOPICAL (12:41)
[2023-11-15] MEDS: LORazepam 1 MG TABLET PO (12:55)
--- NOTE | 2023-11-15 14:00 | P.PNPSI_ITS ---
Subjective Subjective Date of Service: 11/15/23 Reason For Visit: SI Interim History: very anxious due to loud, aggressive, threatening peer. staying in her room. c/o depression, agrees to increase zoloft to 150 mg daily. reports she did sleep better last night and without nightmares. +SI today. per staff, dep and anxious. taking meds. upset with constipation. KUB showed moderate stool burden. c/o VH. +grps. no AH. Mental Status Exam Mental Status Exam Narrative: Pleasant. Engaged. adequately dressed and groomed. Alert and oriented. no PMA/PMR. speech nml rate and amount, nml ZANDRA. thoughts linear and logical. affect non-labile, constricted. mood depressed and anxious. +SI. seeing shadows. no HI/AH expressed. Diagnostics Vital Signs (24Hr): Vital Signs - 24 hr 11/14/23 20:10 11/15/23 08:00 11/15/23 08:30 Temperature 98.1 F 98.0 F Pulse Rate 76 132 H 94 Respiratory Rate 18 20 Blood Pressure 114/72 98/64 Pulse Oximetry 97 99 Oxygen Delivery Method Room Air Room Air BMI result Body Mass Index 30.6 Labs 11/11/23 10:33 11/11/23 10:33 Imaging Radiology Impressions: ITS Impressions Abdomen X-Ray 11/14/23 12:24 IMPRESSION: Moderate amount of stool from the cecum through the descending colon consistent with constipation. Medications Medications Current Medications Acetaminophen (Acetaminophen 325 Mg Tablet) 650 mg PO Q6H PRN PRN Reason: Headache/Pain Mild Scale (1-3) Last Admin: 11/15/23 12:37 Dose: 650 mg Al Hydroxide/Mg Hydroxide (Magnesium Hydrox/Alum Hydrox 30 Ml Oral.Susp) 30 ml PO Q6H PRN PRN Reason: Heartburn/Nausea Albuterol Sulfate (Albuterol Sulfate 90 Mcg 8 Gm Inhaler) 1 puff INHALE RQ4H PRN PRN Reason: Wheezing Last Admin: 11/14/23 20:35 Dose: 1 puff Capsaicin (Capsaicin 0.025% Cream 60 Gm Tube) 1 appl TOPICAL QID PRN; Protocol PRN Reason: Pain, Moderate(Pain Scale 4-6) Last Admin: 11/15/23 12:41 Dose: 1 appl Docusate Sodium (Docusate Sodium 100 Mg Capsule) 100 mg PO BID SERENA Last Admin: 11/15/23 08:33 Dose: 100 mg Fluticasone/Vilanterol (Fluticasone/Vilanterol 100/25 Blst.W.Dev) 1 puff INHALE RDAILY [facility] Last Admin: 11/15/23 08:35 Dose: 1 puff Hydroxyzine HCl (Hydroxyzine Hcl 50 Mg Tablet) 50 mg PO BID PRN PRN Reason: anxiety Last Admin: 11/15/23 12:13 Dose: 50 mg Lactulose (Lactulose 20 Gm/30 Ml Solution) 30 gm PO TID [facility] Last Admin: 11/15/23 08:36 Dose: 30 gm Magnesium Hydroxide (Milk Of Magnesia 30 Ml Oral.Susp) 30 ml PO DAILY PRN PRN Reason: Constipation Last Admin: 11/14/23 17:45 Dose: 30 ml Nicotine (Nicotine 14 Mg Patch.Td24) 14 mg TRANSDERMA DAILY [facility] Last Admin: 11/15/23 08:35 Dose: 14 mg Nicotine Polacrilex (Nicotine Polacrilex 2 Mg Gum) 2 mg BUCCAL Q2H PRN PRN Reason: Nicotine Cravings Last Admin: 11/15/23 12:31 Dose: 2 mg Pt Own (Fluticasone Furoate [Arnuity Ellipta] 100 Mcg/Actuation Blister 1 inhalation INHALE DAILY [facility] Last Admin: 11/15/23 09:02 Dose: Not Given Olanzapine (Olanzapine 10 Mg Tablet) 20 mg PO BEDTIME [facility] Last Admin: 11/14/23 20:25 Dose: 20 mg Omeprazole (Omeprazole 20 Mg Capsule.Dr) 20 mg PO BID@0630,1630 [facility] Last Admin: 11/15/23 07:13 Dose: 20 mg Polyethylene Glycol (Polyethylene Glycol 3350 17 Gm Powd.Pack) 17 gm PO DAILY PRN PRN Reason: constipation Last Admin: 11/14/23 08:14 Dose: 17 gm Prazosin HCl (Prazosin Hcl 1 Mg Capsule) 4 mg PO BEDTIME [facility]; Protocol Last Admin: 11/14/23 20:25 Dose: 4 mg Quetiapine Fumarate (Quetiapine Fumarate 50 Mg Tablet) 50 mg PO TID [facility] Last Admin: 11/15/23 08:34 Dose: 50 mg Quetiapine Fumarate (Quetiapine Fumarate 100 Mg Tablet) 100 mg PO BID PRN PRN Reason: severe anxiety Last Admin: 11/15/23 09:46 Dose: 100 mg Sertraline HCl (Sertraline Hcl 50 Mg Tablet) 150 mg PO DAILY [facility] Sucralfate (Sucralfate 1 Gm Tablet) 1 gm PO QIDACHS [facility] Last Admin: 11/15/23 12:13 Dose: 1 gm Trazodone HCl 200 mg/ (Trazodone HCl 50 mg) 250 mg PO BEDTIME [facility] Last Admin: 11/14/23 20:36 Dose: 250 mg Allergies Allergies Allergy/AdvReac Type Severity Reaction Status Date / Time almond Allergy Severe Anaphylaxis Verified 11/11/23 09:31 Penicillins Allergy Severe Anaphylaxis Verified 11/11/23 09:31 shrimp Allergy Severe Anaphylaxis Verified 11/11/23 09:31 peanuts Allergy Severe Anaphylaxis Uncoded 11/11/23 09:31 Assessment & Plan Assessment & Plan (1) Cocaine abuse: Status: Acute Code(s): F14.10 - Cocaine abuse, uncomplicated (2) Cannabis abuse: Status: Acute Code(s): F12.10 - Cannabis abuse, uncomplicated (3) PTSD (post-traumatic stress disorder): Status: Acute Code(s): F43.10 - Post-traumatic stress disorder, unspecified (4) MDD (major depressive disorder), recurrent episode: Status: Acute Code(s): F33.9 - Major depressive disorder, recurrent, unspecified Plan 11/12: restart home medications. stabilize inpatient. T/C PHP at discharge. 11/13: PEG and enema unsuccessful for constipation. KUB today. increase prazosin to 4 mg QHS for nightmares. DC cogentin as not indicated and constipating. D/C geodon PRN anxiety/agitation in favor of seroquel trial. 11/14: no nightmares last night and better sleep. very anxious today 2/2 loud, aggressive, threatening peer. asking for numerous PRNs. one-time ativan order allowed. increase zoloft to 150 mg daily for depression. +SI. Reason for continued inpatient stay Substantial Risk for: harm to self, inability to function and rapid decompensation Time Spent With Patient Time: Total time managing care of this patient today __25__ minutes.
[2023-11-15 20:00] VITALS: BP 110/68; PULSE 92; RESP 16; TEMP 37.1; O2SAT 98
[2023-11-15] MEDS: Prazosin HCL 1 MG CAPSULE 4 MG PO (20:10)
[2023-11-15] MEDS: OLANZapine 10 MG TABLET 20 MG PO (20:10)
[2023-11-15] MEDS: TRAZODONE HCL 250 MG PO (20:11)
--- NOTE | 2023-11-16 06:22 | PC.NURSE ---
Kymberly turned in her nicotine patch, stated it fell off in the shower.
[2023-11-16 07:40] VITALS: BP 120/59; PULSE 95; RESP 16; TEMP 36.7; O2SAT 98
[2023-11-16] MEDS: Omeprazole 20 MG CAPSULE.DR PO ×2 (07:57→17:09)
[2023-11-16] MEDS: Nicotine 14 MG PATCH.TD24 TRANSDERMA (08:21)
[2023-11-16] MEDS: Docusate Sodium 100 MG CAPSULE PO ×2 (08:23→20:34)
[2023-11-16] MEDS: Fluticasone/Vilanterol 100/25 BLST.W.DEV 1 PUFF INHALE (08:23)
[2023-11-16] MEDS: Sucralfate 1 GM TABLET PO ×4 (08:24→20:35)
[2023-11-16] MEDS: QUEtiapine Fumarate 50 MG TABLET PO (08:24)
[2023-11-16] MEDS: Sertraline HCL 50 MG TABLET 150 MG PO (08:25)
[2023-11-16] MEDS: hydrOXYzine HCL 50 MG TABLET PO ×2 (09:05→20:40)
--- NOTE | 2023-11-16 11:15 | P.PNPSI_ITS ---
Subjective Subjective Date of Service: 11/16/23 Reason For Visit: SI Subjective Notes: Conditional Voluntary Interim History: Met with patient. Discussed with Nursing. Overall continues to have auditory and visual hallucinations. Reports they are worse today and more upsetting and distressing. Telling her to hurt herself. No desire to act upon same, but also very upsetting. Feeling supported by staff. Positive that bowel regimen showed positive results yesterday. Sleep okay. No agitation. Overall will increase olanzapine to 30 mg and also Seroquel 100 mg 3 times per day with 100 mg as needed. Will continue to monitor bowel regimen in the context of med changes. Medication Compliance: Yes Side effects from medications: No Attending Groups: Yes Review of Systems Acute medical concerns: No Review of Systems Review of Systems Yes all other systems are reviewed and are negative Mental Status Exam Mental Status Exam Narrative: Pleasant. Engaged. adequately dressed and groomed. Alert and oriented. no PMA/PMR. speech nml rate and amount, nml ZANDRA. thoughts linear and logical. affect non-labile, constricted. mood depressed and anxious. +SI. Ah and VH. Insight and judgment fair. Diagnostics Vital Signs (24Hr): Vital Signs - 24 hr 11/15/23 20:00 11/16/23 07:40 Temperature 98.8 F 98.1 F Pulse Rate 92 95 Respiratory Rate 16 16 Blood Pressure 110/68 120/59 L Pulse Oximetry 98 98 Oxygen Delivery Method Room Air Room Air BMI result Body Mass Index 30.6 Labs 11/11/23 10:33 11/11/23 10:33 Imaging Radiology Impressions: ITS Impressions Abdomen X-Ray 11/14/23 12:24 IMPRESSION: Moderate amount of stool from the cecum through the descending colon consistent with constipation. Medications Medications Current Medications Acetaminophen (Acetaminophen 325 Mg Tablet) 650 mg PO Q6H PRN PRN Reason: Headache/Pain Mild Scale (1-3) Last Admin: 11/15/23 12:37 Dose: 650 mg Al Hydroxide/Mg Hydroxide (Magnesium Hydrox/Alum Hydrox 30 Ml Oral.Susp) 30 ml PO Q6H PRN PRN Reason: Heartburn/Nausea Albuterol Sulfate (Albuterol Sulfate 90 Mcg 8 Gm Inhaler) 1 puff INHALE RQ4H PRN PRN Reason: Wheezing Last Admin: 11/14/23 20:35 Dose: 1 puff Capsaicin (Capsaicin 0.025% Cream 60 Gm Tube) 1 appl TOPICAL QID PRN; Protocol PRN Reason: Pain, Moderate(Pain Scale 4-6) Last Admin: 11/15/23 12:41 Dose: 1 appl Docusate Sodium (Docusate Sodium 100 Mg Capsule) 100 mg PO BID [facility] Last Admin: 11/16/23 08:23 Dose: 100 mg Fluticasone/Vilanterol (Fluticasone/Vilanterol 100/25 Blst.W.Dev) 1 puff INHALE RDAILY [facility] Last Admin: 11/16/23 08:23 Dose: 1 puff Hydroxyzine HCl (Hydroxyzine Hcl 50 Mg Tablet) 50 mg PO BID PRN PRN Reason: anxiety Last Admin: 11/16/23 09:05 Dose: 50 mg Lactulose (Lactulose 20 Gm/30 Ml Solution) 30 gm PO TID [facility] Last Admin: 11/16/23 08:56 Dose: Not Given Magnesium Hydroxide (Milk Of Magnesia 30 Ml Oral.Susp) 30 ml PO DAILY PRN PRN Reason: Constipation Last Admin: 11/14/23 17:45 Dose: 30 ml Nicotine (Nicotine 14 Mg Patch.Td24) 14 mg TRANSDERMA DAILY [facility] Last Admin: 11/16/23 08:21 Dose: 14 mg Nicotine Polacrilex (Nicotine Polacrilex 2 Mg Gum) 2 mg BUCCAL Q2H PRN PRN Reason: Nicotine Cravings Last Admin: 11/15/23 16:41 Dose: 2 mg Pt Own (Fluticasone Furoate [Arnuity Ellipta] 100 Mcg/Actuation Blister 1 inhalation INHALE DAILY [facility] Last Admin: 11/16/23 08:40 Dose: Not Given Olanzapine (Olanzapine 10 Mg Tablet) 20 mg PO BEDTIME [facility] Last Admin: 11/15/23 20:10 Dose: 20 mg Omeprazole (Omeprazole 20 Mg Capsule.Dr) 20 mg PO BID@0630,1630 [facility] Last Admin: 11/16/23 07:57 Dose: 20 mg Polyethylene Glycol (Polyethylene Glycol 3350 17 Gm Powd.Pack) 17 gm PO DAILY PRN PRN Reason: constipation Last Admin: 11/14/23 08:14 Dose: 17 gm Prazosin HCl (Prazosin Hcl 1 Mg Capsule) 4 mg PO BEDTIME [facility]; Protocol Last Admin: 11/15/23 20:10 Dose: 4 mg Quetiapine Fumarate (Quetiapine Fumarate 50 Mg Tablet) 50 mg PO TID [facility] Last Admin: 11/16/23 08:24 Dose: 50 mg Quetiapine Fumarate (Quetiapine Fumarate 100 Mg Tablet) 100 mg PO BID PRN PRN Reason: severe anxiety Last Admin: 11/15/23 09:46 Dose: 100 mg Sertraline HCl (Sertraline Hcl 50 Mg Tablet) 150 mg PO DAILY [facility] Last Admin: 11/16/23 08:25 Dose: 150 mg Sucralfate (Sucralfate 1 Gm Tablet) 1 gm PO QIDACHS [facility] Last Admin: 11/16/23 08:24 Dose: 1 gm Trazodone HCl 200 mg/ (Trazodone HCl 50 mg) 250 mg PO BEDTIME [facility] Last Admin: 11/15/23 20:11 Dose: 250 mg Allergies Allergies Allergy/AdvReac Type Severity Reaction Status Date / Time almond Allergy Severe Anaphylaxis Verified 11/11/23 09:31 Penicillins Allergy Severe Anaphylaxis Verified 11/11/23 09:31 shrimp Allergy Severe Anaphylaxis Verified 11/11/23 09:31 peanuts Allergy Severe Anaphylaxis Uncoded 11/11/23 09:31 Assessment & Plan Assessment & Plan (1) Cocaine abuse: Status: Acute Code(s): F14.10 - Cocaine abuse, uncomplicated (2) Cannabis abuse: Status: Acute Code(s): F12.10 - Cannabis abuse, uncomplicated (3) PTSD (post-traumatic stress disorder): Status: Acute Code(s): F43.10 - Post-traumatic stress disorder, unspecified (4) MDD (major depressive disorder), recurrent episode: Status: Acute Code(s): F33.9 - Major depressive disorder, recurrent, unspecified Plan 11/12: restart home medications. stabilize inpatient. T/C PHP at discharge. 11/13: PEG and enema unsuccessful for constipation. KUB today. increase prazosin to 4 mg QHS for nightmares. DC cogentin as not indicated and constipating. D/C geodon PRN anxiety/agitation in favor of seroquel trial. 11/14: no nightmares last night and better sleep. very anxious today 2/2 loud, aggressive, threatening peer. asking for numerous PRNs. one-time ativan order allowed. increase zoloft to 150 mg daily for depression. +SI. 11/16/2023: Overall will increase olanzapine to 30 mg and also Seroquel 100 mg 3 times per day with 100 mg as needed. Will continue to monitor bowel regimen in the context of med changes. Reason for continued inpatient stay Substantial Risk for: harm to self Time Spent With Patient Time: Total time managing care of this patient today ____ minutes.
[2023-11-16] MEDS: QUEtiapine Fumarate 100 MG TABLET PO ×4 (12:15→20:41)
[2023-11-16] MEDS: Nicotine Polacrilex 2 MG GUM BUCCAL (12:17)
[2023-11-16] MEDS: Lactulose 20 GM/30 ML SOLUTION 30 GM PO ×2 (15:03→20:36)
[2023-11-16 20:30] VITALS: BP 126/79; PULSE 109; RESP 16; TEMP 36.9; O2SAT 98
[2023-11-16] MEDS: TRAZODONE HCL 250 MG PO (20:33)
[2023-11-16] MEDS: OLANZapine 10 MG TABLET 30 MG PO (20:35)
[2023-11-16] MEDS: Prazosin HCL 1 MG CAPSULE 4 MG PO (20:36)
[2023-11-16] MEDS: Acetaminophen 325 MG TABLET 650 MG PO (20:41)
[2023-11-17 07:15] VITALS: BP 117/70; PULSE 101; RESP 18; TEMP 36.5; O2SAT 96
[2023-11-17] MEDS: Fluticasone/Vilanterol 100/25 BLST.W.DEV 1 PUFF INHALE (08:52)
[2023-11-17] MEDS: Lactulose 20 GM/30 ML SOLUTION 30 GM PO ×3 (08:53→21:03)
[2023-11-17] MEDS: Nicotine 14 MG PATCH.TD24 TRANSDERMA (08:55)
[2023-11-17] MEDS: Omeprazole 20 MG CAPSULE.DR PO ×2 (08:56→17:09)
[2023-11-17] MEDS: Sucralfate 1 GM TABLET PO ×4 (08:56→21:00)
[2023-11-17] MEDS: QUEtiapine Fumarate 100 MG TABLET PO ×4 (08:56→21:00)
[2023-11-17] MEDS: Docusate Sodium 100 MG CAPSULE PO ×2 (08:56→21:00)
[2023-11-17] MEDS: Sertraline HCL 50 MG TABLET 150 MG PO (08:56)
[2023-11-17] MEDS: hydrOXYzine HCL 50 MG TABLET PO ×2 (09:15→21:00)
--- NOTE | 2023-11-17 11:15 | HO.PSYCHPN ---
Subjective Subjective Date of Service: 11/17/23 Reason For Visit: SI Interim History: Met with patient. Discussed with Nursing. Overall continues to have auditory and visual hallucinations- is doing better with medication change yesterday. Slept well. Less stressed and anxious. Most disturbed by visual hallucinations/shadows. Feeling supported by staff. Medication Compliance: Yes Side effects from medications: No Attending Groups: Yes Review of Systems Acute medical concerns: No Review of Systems Review of Systems Yes all other systems are reviewed and are negative Constitutional: Reports as per HPI Mental Status Exam Mental Status Exam Narrative: Pleasant. Engaged. adequately dressed and groomed. Alert and oriented. no PMA/PMR. speech nml rate and amount, nml ZANDRA. thoughts linear and logical. affect non-labile, constricted. mood depressed and anxious. No SI. Ah and VH. Insight and judgment fair. Diagnostics Vital Signs (24Hr): Vital Signs - 24 hr 11/16/23 20:30 11/17/23 07:15 Temperature 98.5 F 97.7 F Pulse Rate 109 H 101 H Respiratory Rate 16 18 Blood Pressure 126/79 117/70 Pulse Oximetry 98 96 Oxygen Delivery Method Room Air Room Air BMI result Body Mass Index 30.6 Labs 11/11/23 10:33 11/11/23 10:33 Imaging Radiology Impressions: ITS Impressions Abdomen X-Ray 11/14/23 12:24 IMPRESSION: Moderate amount of stool from the cecum through the descending colon consistent with constipation. Medications Medications Current Medications Acetaminophen (Acetaminophen 325 Mg Tablet) 650 mg PO Q6H PRN PRN Reason: Headache/Pain Mild Scale (1-3) Last Admin: 11/16/23 20:41 Dose: 650 mg Al Hydroxide/Mg Hydroxide (Magnesium Hydrox/Alum Hydrox 30 Ml Oral.Susp) 30 ml PO Q6H PRN PRN Reason: Heartburn/Nausea Albuterol Sulfate (Albuterol Sulfate 90 Mcg 8 Gm Inhaler) 1 puff INHALE RQ4H PRN PRN Reason: Wheezing Last Admin: 11/14/23 20:35 Dose: 1 puff Capsaicin (Capsaicin 0.025% Cream 60 Gm Tube) 1 appl TOPICAL QID PRN; Protocol PRN Reason: Pain, Moderate(Pain Scale 4-6) Last Admin: 11/15/23 12:41 Dose: 1 appl Docusate Sodium (Docusate Sodium 100 Mg Capsule) 100 mg PO BID SERENA Last Admin: 11/17/23 08:56 Dose: 100 mg Fluticasone/Vilanterol (Fluticasone/Vilanterol 100/25 Blst.W.Dev) 1 puff INHALE RDAILY [facility] Last Admin: 11/17/23 08:52 Dose: 1 puff Hydroxyzine HCl (Hydroxyzine Hcl 50 Mg Tablet) 50 mg PO BID PRN PRN Reason: anxiety Last Admin: 11/17/23 09:15 Dose: 50 mg Lactulose (Lactulose 20 Gm/30 Ml Solution) 30 gm PO TID [facility] Last Admin: 11/17/23 08:53 Dose: 30 gm Magnesium Hydroxide (Milk Of Magnesia 30 Ml Oral.Susp) 30 ml PO DAILY PRN PRN Reason: Constipation Last Admin: 11/14/23 17:45 Dose: 30 ml Nicotine (Nicotine 14 Mg Patch.Td24) 14 mg TRANSDERMA DAILY [facility] Last Admin: 11/17/23 08:55 Dose: 14 mg Nicotine Polacrilex (Nicotine Polacrilex 2 Mg Gum) 2 mg BUCCAL Q2H PRN PRN Reason: Nicotine Cravings Last Admin: 11/16/23 12:17 Dose: 2 mg Pt Own (Fluticasone Furoate [Arnuity Ellipta] 100 Mcg/Actuation Blister 1 inhalation INHALE DAILY [facility] Last Admin: 11/17/23 09:16 Dose: Not Given Olanzapine (Olanzapine 10 Mg Tablet) 30 mg PO BEDTIME [facility] Last Admin: 11/16/23 20:35 Dose: 30 mg Omeprazole (Omeprazole 20 Mg Capsule.Dr) 20 mg PO BID@0630,1630 [facility] Last Admin: 11/17/23 08:56 Dose: 20 mg Polyethylene Glycol (Polyethylene Glycol 3350 17 Gm Powd.Pack) 17 gm PO DAILY PRN PRN Reason: constipation Last Admin: 11/14/23 08:14 Dose: 17 gm Prazosin HCl (Prazosin Hcl 1 Mg Capsule) 4 mg PO BEDTIME [facility]; Protocol Last Admin: 11/16/23 20:36 Dose: 4 mg Quetiapine Fumarate (Quetiapine Fumarate 100 Mg Tablet) 100 mg PO BID PRN PRN Reason: severe anxiety Last Admin: 11/16/23 20:41 Dose: 100 mg Quetiapine Fumarate (Quetiapine Fumarate 100 Mg Tablet) 100 mg PO TID [facility] Last Admin: 11/17/23 08:56 Dose: 100 mg Sertraline HCl (Sertraline Hcl 50 Mg Tablet) 150 mg PO DAILY [facility] Last Admin: 11/17/23 08:56 Dose: 150 mg Sucralfate (Sucralfate 1 Gm Tablet) 1 gm PO QIDACHS [facility] Last Admin: 11/17/23 08:56 Dose: 1 gm Trazodone HCl 200 mg/ (Trazodone HCl 50 mg) 250 mg PO BEDTIME [facility] Last Admin: 11/16/23 20:33 Dose: 250 mg Allergies Allergies Allergy/AdvReac Type Severity Reaction Status Date / Time almond Allergy Severe Anaphylaxis Verified 11/11/23 09:31 Penicillins Allergy Severe Anaphylaxis Verified 11/11/23 09:31 shrimp Allergy Severe Anaphylaxis Verified 11/11/23 09:31 peanuts Allergy Severe Anaphylaxis Uncoded 11/11/23 09:31 Assessment & Plan Assessment & Plan (1) Cocaine abuse: Status: Acute Code(s): F14.10 - Cocaine abuse, uncomplicated (2) Cannabis abuse: Status: Acute Code(s): F12.10 - Cannabis abuse, uncomplicated (3) PTSD (post-traumatic stress disorder): Status: Acute Code(s): F43.10 - Post-traumatic stress disorder, unspecified (4) MDD (major depressive disorder), recurrent episode: Status: Acute Code(s): F33.9 - Major depressive disorder, recurrent, unspecified Plan 11/12: restart home medications. stabilize inpatient. T/C PHP at discharge. 11/13: PEG and enema unsuccessful for constipation. KUB today. increase prazosin to 4 mg QHS for nightmares. DC cogentin as not indicated and constipating. D/C geodon PRN anxiety/agitation in favor of seroquel trial. 11/14: no nightmares last night and better sleep. very anxious today 2/2 loud, aggressive, threatening peer. asking for numerous PRNs. one-time ativan order allowed. increase zoloft to 150 mg daily for depression. +SI. 11/16/2023: Overall will increase olanzapine to 30 mg and also Seroquel 100 mg 3 times per day with 100 mg as needed. Will continue to monitor bowel regimen in the context of med changes. 11/17/2023: No changes Reason for continued inpatient stay Substantial Risk for: rapid decompensation Time Spent With Patient Time: Total time managing care of this patient today ____ minutes.
[2023-11-17] MEDS: Nicotine Polacrilex 2 MG GUM BUCCAL (12:05)
[2023-11-17] MEDS: Mineral Oil/Petrolatum,White 106 GM Tube 1 APPL TOPICAL ×2 (17:09→21:05)
[2023-11-17 20:30] VITALS: BP 122/71; PULSE 100; RESP 18; TEMP 36.7; O2SAT 98
[2023-11-17] MEDS: OLANZapine 10 MG TABLET 30 MG PO (20:59)
[2023-11-17] MEDS: TRAZODONE HCL 250 MG PO (21:00)
[2023-11-17] MEDS: Prazosin HCL 1 MG CAPSULE 4 MG PO (21:00)
[2023-11-18 07:40] VITALS: BP 121/64; PULSE 92; RESP 16; TEMP 36.9; O2SAT 99
[2023-11-18] MEDS: Fluticasone/Vilanterol 100/25 BLST.W.DEV 1 PUFF INHALE (08:38)
[2023-11-18] MEDS: Omeprazole 20 MG CAPSULE.DR PO ×2 (08:38→17:05)
[2023-11-18] MEDS: Sucralfate 1 GM TABLET PO ×4 (08:38→20:50)
[2023-11-18] MEDS: Nicotine 14 MG PATCH.TD24 TRANSDERMA (08:38)
[2023-11-18] MEDS: Docusate Sodium 100 MG CAPSULE PO ×2 (08:39→20:50)
[2023-11-18] MEDS: Mineral Oil/Petrolatum,White 106 GM Tube 1 APPL TOPICAL ×2 (08:40→20:54)
[2023-11-18] MEDS: QUEtiapine Fumarate 100 MG TABLET PO ×5 (08:40→20:49)
[2023-11-18] MEDS: Sertraline HCL 50 MG TABLET 150 MG PO (08:40)
[2023-11-18] MEDS: Lactulose 20 GM/30 ML SOLUTION 30 GM PO ×3 (08:40→20:52)
[2023-11-18] MEDS: Capsaicin 0.025% Cream 60 GM TUBE 1 APPL TOPICAL (08:44)
[2023-11-18] MEDS: hydrOXYzine HCL 50 MG TABLET PO (11:01)
[2023-11-18] MEDS: Milk of Magnesia 30 ML ORAL.SUSP PO (15:07)
--- NOTE | 2023-11-18 15:24 | P.PNPSI_ITS ---
Subjective Subjective Date of Service: 11/18/23 Reason For Visit: SI Interim History: c/o poor sleep last night. roommate up x2 in the night screaming from nightmares. had BM saturday, none since. angry mood, no SI. CAH to cut self but feels she is able to ignore it easily. does report shadow scaring me. asks for increase in hydroxyzine dosing. amenable to increase prazosin to 5 mg QHS. per staff, anxious, variable affect. calm, pleasant, cooperative. +AH, but they are better than they were prior. waking up sweaty. taking seroquel and hydroxyzine at HS. Mental Status Exam Mental Status Exam Narrative: Pleasant. Engaged. adequately dressed and groomed. Alert and oriented. no PMA/PMR. speech nml rate and amount, nml ZANDRA. thoughts linear and logical. affect non-labile, constricted. mood angry. No SI. VH of shadows. CAH to cut self. Insight and judgment fair. Diagnostics Vital Signs (24Hr): Vital Signs - 24 hr 11/17/23 20:30 11/18/23 07:40 Temperature 98.0 F 98.5 F Pulse Rate 100 92 Respiratory Rate 18 16 Blood Pressure 122/71 121/64 Pulse Oximetry 98 99 Oxygen Delivery Method Room Air Room Air BMI result Body Mass Index 30.6 Labs 11/11/23 10:33 11/11/23 10:33 Imaging Radiology Impressions: ITS Impressions Abdomen X-Ray 11/14/23 12:24 IMPRESSION: Moderate amount of stool from the cecum through the descending colon consistent with constipation. Medications Medications Current Medications Acetaminophen (Acetaminophen 325 Mg Tablet) 650 mg PO Q6H PRN PRN Reason: Headache/Pain Mild Scale (1-3) Last Admin: 11/16/23 20:41 Dose: 650 mg Al Hydroxide/Mg Hydroxide (Magnesium Hydrox/Alum Hydrox 30 Ml Oral.Susp) 30 ml PO Q6H PRN PRN Reason: Heartburn/Nausea Albuterol Sulfate (Albuterol Sulfate 90 Mcg 8 Gm Inhaler) 1 puff INHALE RQ4H PRN PRN Reason: Wheezing Last Admin: 11/14/23 20:35 Dose: 1 puff Capsaicin (Capsaicin 0.025% Cream 60 Gm Tube) 1 appl TOPICAL QID PRN; Protocol PRN Reason: Pain, Moderate(Pain Scale 4-6) Last Admin: 11/18/23 08:44 Dose: 1 appl Docusate Sodium (Docusate Sodium 100 Mg Capsule) 100 mg PO BID [facility] Last Admin: 11/18/23 08:39 Dose: 100 mg Fluticasone/Vilanterol (Fluticasone/Vilanterol 100/25 Blst.W.Dev) 1 puff INHALE RDAILY [facility] Last Admin: 11/18/23 08:38 Dose: 1 puff Hydroxyzine HCl (Hydroxyzine Hcl 25 Mg Tablet) 75 mg PO BID PRN PRN Reason: anxiety Lactulose (Lactulose 20 Gm/30 Ml Solution) 30 gm PO TID [facility] Last Admin: 11/18/23 15:07 Dose: 30 gm Magnesium Hydroxide (Milk Of Magnesia 30 Ml Oral.Susp) 30 ml PO DAILY PRN PRN Reason: Constipation Last Admin: 11/18/23 15:07 Dose: 30 ml Multi-Ingred Cream/Lotion/Oil/Oint (Mineral Oil/Petrolatum,White 106 Gm Tube) 1 appl TOPICAL BID [facility]; Protocol Last Admin: 11/18/23 08:40 Dose: 1 appl Nicotine (Nicotine 14 Mg Patch.Td24) 14 mg TRANSDERMA DAILY [facility] Last Admin: 11/18/23 08:38 Dose: 14 mg Nicotine Polacrilex (Nicotine Polacrilex 2 Mg Gum) 2 mg BUCCAL Q2H PRN PRN Reason: Nicotine Cravings Last Admin: 11/17/23 12:05 Dose: 2 mg Pt Own (Fluticasone Furoate [Arnuity Ellipta] 100 Mcg/Actuation Blister 1 inhalation INHALE DAILY [facility] Last Admin: 11/18/23 08:45 Dose: Not Given Olanzapine (Olanzapine 10 Mg Tablet) 30 mg PO BEDTIME [facility] Last Admin: 11/17/23 20:59 Dose: 30 mg Omeprazole (Omeprazole 20 Mg Capsule.Dr) 20 mg PO BID@0630,1630 [facility] Last Admin: 11/18/23 08:38 Dose: 20 mg Polyethylene Glycol (Polyethylene Glycol 3350 17 Gm Powd.Pack) 17 gm PO DAILY PRN PRN Reason: constipation Last Admin: 11/14/23 08:14 Dose: 17 gm Prazosin HCl (Prazosin Hcl 5 Mg Capsule) 5 mg PO BEDTIME [facility]; Protocol Quetiapine Fumarate (Quetiapine Fumarate 100 Mg Tablet) 100 mg PO BID PRN PRN Reason: severe anxiety Last Admin: 11/17/23 21:00 Dose: 100 mg Quetiapine Fumarate (Quetiapine Fumarate 100 Mg Tablet) 100 mg PO TID [facility] Last Admin: 11/18/23 15:07 Dose: 100 mg Sertraline HCl (Sertraline Hcl 50 Mg Tablet) 150 mg PO DAILY [facility] Last Admin: 11/18/23 08:40 Dose: 150 mg Sucralfate (Sucralfate 1 Gm Tablet) 1 gm PO QIDACHS [facility] Last Admin: 11/18/23 12:30 Dose: 1 gm Trazodone HCl 200 mg/ (Trazodone HCl 50 mg) 250 mg PO BEDTIME [facility] Last Admin: 11/17/23 21:00 Dose: 250 mg Allergies Allergies Allergy/AdvReac Type Severity Reaction Status Date / Time almond Allergy Severe Anaphylaxis Verified 11/11/23 09:31 Penicillins Allergy Severe Anaphylaxis Verified 11/11/23 09:31 shrimp Allergy Severe Anaphylaxis Verified 11/11/23 09:31 peanuts Allergy Severe Anaphylaxis Uncoded 11/11/23 09:31 Assessment & Plan Assessment & Plan (1) Cocaine abuse: Status: Acute Code(s): F14.10 - Cocaine abuse, uncomplicated (2) Cannabis abuse: Status: Acute Code(s): F12.10 - Cannabis abuse, uncomplicated (3) PTSD (post-traumatic stress disorder): Status: Acute Code(s): F43.10 - Post-traumatic stress disorder, unspecified (4) MDD (major depressive disorder), recurrent episode: Status: Acute Code(s): F33.9 - Major depressive disorder, recurrent, unspecified Plan 11/12: restart home medications. stabilize inpatient. T/C PHP at discharge. 11/13: PEG and enema unsuccessful for constipation. KUB today. increase prazosin to 4 mg QHS for nightmares. DC cogentin as not indicated and constipating. D/C geodon PRN anxiety/agitation in favor of seroquel trial. 11/14: no nightmares last night and better sleep. very anxious today 2/2 loud, aggressive, threatening peer. asking for numerous PRNs. one-time ativan order allowed. increase zoloft to 150 mg daily for depression. +SI. 11/16/2023: Overall will increase olanzapine to 30 mg and also Seroquel 100 mg 3 times per day with 100 mg as needed. Will continue to monitor bowel regimen in the context of med changes. 11/17/2023: No changes 11/17: stable. modest improvement in Sx. increase prazosin to 5 mg QHS. increase hydroxyzine to 75 mg per dose. +CAH to cut self and seeing shadows, which she finds quite anxiogenic. Reason for continued inpatient stay Substantial Risk for: harm to self, inability to function and rapid decompensation Time Spent With Patient Time: Total time managing care of this patient today __25__ minutes.
[2023-11-18 20:04] VITALS: BP 124/64; PULSE 104; RESP 16; TEMP 37.1; O2SAT 98
[2023-11-18] MEDS: TRAZODONE HCL 250 MG PO (20:49)
[2023-11-18] MEDS: hydrOXYzine HCL 25 MG TABLET 75 MG PO (20:49)
[2023-11-18] MEDS: OLANZapine 10 MG TABLET 30 MG PO (20:50)
[2023-11-18] MEDS: Prazosin HCL 5 MG CAPSULE PO (20:50)
[2023-11-18] MEDS: Acetaminophen 325 MG TABLET 650 MG PO (21:03)
[2023-11-19] MEDS: Sucralfate 1 GM TABLET PO ×4 (05:27→20:54)
[2023-11-19] MEDS: Omeprazole 20 MG CAPSULE.DR PO ×2 (05:27→16:28)
--- NOTE | 2023-11-19 06:36 | PC.NURSE ---
Kymberly was given her 0730 Carafate at 0530 for abdominal pain, early administration approved by Dr. Rosales
[2023-11-19 07:44] VITALS: BP 110/57; PULSE 81; RESP 16; TEMP 36.7; O2SAT 97
[2023-11-19] MEDS: Nicotine 14 MG PATCH.TD24 TRANSDERMA (08:24)
[2023-11-19] MEDS: Sertraline HCL 50 MG TABLET 150 MG PO (08:25)
[2023-11-19] MEDS: Lactulose 20 GM/30 ML SOLUTION 30 GM PO ×3 (08:26→20:56)
[2023-11-19] MEDS: QUEtiapine Fumarate 100 MG TABLET PO ×5 (08:26→20:50)
[2023-11-19] MEDS: Docusate Sodium 100 MG CAPSULE PO ×2 (08:26→20:55)
[2023-11-19] MEDS: Fluticasone/Vilanterol 100/25 BLST.W.DEV 1 PUFF INHALE (08:27)
[2023-11-19] MEDS: Mineral Oil/Petrolatum,White 106 GM Tube 1 APPL TOPICAL (08:33)
--- NOTE | 2023-11-19 11:04 | PC.NURSE ---
pt c/o 01/24 anxiety, requested and received PRN seroquel.
[2023-11-19] MEDS: Nicotine Polacrilex 2 MG GUM BUCCAL (11:43)
[2023-11-19] MEDS: hydrOXYzine HCL 25 MG TABLET 75 MG PO ×2 (13:07→20:51)
--- NOTE | 2023-11-19 15:49 | P.PNPSI_ITS ---
Subjective Subjective Date of Service: 11/19/23 Reason For Visit: SI Interim History: calm, cooperative. proudly states she attended all groups this morning despite strong anxiety. slept well, no sweats or nightmares. agreeable to saturday discharge, reports her does not work on fridays and can come in and pick her up. per staff, dep 9 anx 8. tearful, labile. sleeping better - no nightmares. slept about 7 hours. Mental Status Exam Mental Status Exam Narrative: Pleasant. Engaged. adequately dressed and groomed. Alert and oriented. no PMA/PMR. speech nml rate and amount, nml ZANDRA. thoughts linear and logical. affect non-labile, constricted. mood anxious. No SI/HI/AVH expressed. Insight and judgment fair. Diagnostics Vital Signs (24Hr): Vital Signs - 24 hr 11/18/23 20:04 11/19/23 07:44 Temperature 98.7 F 98.1 F Pulse Rate 104 H 81 Respiratory Rate 16 16 Blood Pressure 124/64 110/57 L Pulse Oximetry 98 97 Oxygen Delivery Method Room Air Room Air BMI result Body Mass Index 30.6 Labs 11/11/23 10:33 11/11/23 10:33 Imaging Radiology Impressions: ITS Impressions Abdomen X-Ray 11/14/23 12:24 IMPRESSION: Moderate amount of stool from the cecum through the descending colon consistent with constipation. Medications Medications Current Medications Acetaminophen (Acetaminophen 325 Mg Tablet) 650 mg PO Q6H PRN PRN Reason: Headache/Pain Mild Scale (1-3) Last Admin: 11/18/23 21:03 Dose: 650 mg Al Hydroxide/Mg Hydroxide (Magnesium Hydrox/Alum Hydrox 30 Ml Oral.Susp) 30 ml PO Q6H PRN PRN Reason: Heartburn/Nausea Albuterol Sulfate (Albuterol Sulfate 90 Mcg 8 Gm Inhaler) 1 puff INHALE RQ4H PRN PRN Reason: Wheezing Last Admin: 11/14/23 20:35 Dose: 1 puff Capsaicin (Capsaicin 0.025% Cream 60 Gm Tube) 1 appl TOPICAL QID PRN; Protocol PRN Reason: Pain, Moderate(Pain Scale 4-6) Last Admin: 11/18/23 08:44 Dose: 1 appl Docusate Sodium (Docusate Sodium 100 Mg Capsule) 100 mg PO BID [facility] Last Admin: 11/19/23 08:26 Dose: 100 mg Fluticasone/Vilanterol (Fluticasone/Vilanterol 100/25 Blst.W.Dev) 1 puff INHALE RDAILY [facility] Last Admin: 11/19/23 08:27 Dose: 1 puff Hydroxyzine HCl (Hydroxyzine Hcl 25 Mg Tablet) 75 mg PO BID PRN PRN Reason: anxiety Last Admin: 11/19/23 13:07 Dose: 75 mg Lactulose (Lactulose 20 Gm/30 Ml Solution) 30 gm PO TID [facility] Last Admin: 11/19/23 15:01 Dose: 30 gm Magnesium Hydroxide (Milk Of Magnesia 30 Ml Oral.Susp) 30 ml PO DAILY PRN PRN Reason: Constipation Last Admin: 11/18/23 15:07 Dose: 30 ml Multi-Ingred Cream/Lotion/Oil/Oint (Mineral Oil/Petrolatum,White 106 Gm Tube) 1 appl TOPICAL BID [facility]; Protocol Last Admin: 11/19/23 08:33 Dose: 1 appl Nicotine (Nicotine 14 Mg Patch.Td24) 14 mg TRANSDERMA DAILY [facility] Last Admin: 11/19/23 08:24 Dose: 14 mg Nicotine Polacrilex (Nicotine Polacrilex 2 Mg Gum) 2 mg BUCCAL Q2H PRN PRN Reason: Nicotine Cravings Last Admin: 11/19/23 11:43 Dose: 2 mg Pt Own (Fluticasone Furoate [Arnuity Ellipta] 100 Mcg/Actuation Blister 1 inhalation INHALE DAILY [facility] Last Admin: 11/19/23 08:30 Dose: Not Given Olanzapine (Olanzapine 10 Mg Tablet) 30 mg PO BEDTIME [facility] Last Admin: 11/18/23 20:50 Dose: 30 mg Omeprazole (Omeprazole 20 Mg Capsule.Dr) 20 mg PO BID@0630,1630 [facility] Last Admin: 11/19/23 05:27 Dose: 20 mg Polyethylene Glycol (Polyethylene Glycol 3350 17 Gm Powd.Pack) 17 gm PO DAILY [facility] Prazosin HCl (Prazosin Hcl 5 Mg Capsule) 5 mg PO BEDTIME [facility]; Protocol Last Admin: 11/18/23 20:50 Dose: 5 mg Quetiapine Fumarate (Quetiapine Fumarate 100 Mg Tablet) 100 mg PO BID PRN PRN Reason: severe anxiety Last Admin: 11/19/23 11:02 Dose: 100 mg Quetiapine Fumarate (Quetiapine Fumarate 100 Mg Tablet) 100 mg PO TID [facility] Last Admin: 11/19/23 14:13 Dose: 100 mg Sertraline HCl (Sertraline Hcl 50 Mg Tablet) 150 mg PO DAILY [facility] Last Admin: 11/19/23 08:25 Dose: 150 mg Sucralfate (Sucralfate 1 Gm Tablet) 1 gm PO QIDACHS [facility] Last Admin: 11/19/23 11:02 Dose: 1 gm Trazodone HCl 200 mg/ (Trazodone HCl 50 mg) 250 mg PO BEDTIME [facility] Last Admin: 11/18/23 20:49 Dose: 250 mg Allergies Allergies Allergy/AdvReac Type Severity Reaction Status Date / Time almond Allergy Severe Anaphylaxis Verified 11/11/23 09:31 Penicillins Allergy Severe Anaphylaxis Verified 11/11/23 09:31 shrimp Allergy Severe Anaphylaxis Verified 11/11/23 09:31 peanuts Allergy Severe Anaphylaxis Uncoded 11/11/23 09:31 Assessment & Plan Assessment & Plan (1) Cocaine abuse: Status: Acute Code(s): F14.10 - Cocaine abuse, uncomplicated (2) Cannabis abuse: Status: Acute Code(s): F12.10 - Cannabis abuse, uncomplicated (3) PTSD (post-traumatic stress disorder): Status: Acute Code(s): F43.10 - Post-traumatic stress disorder, unspecified (4) MDD (major depressive disorder), recurrent episode: Status: Acute Code(s): F33.9 - Major depressive disorder, recurrent, unspecified Plan 11/12: restart home medications. stabilize inpatient. T/C PHP at discharge. 11/13: PEG and enema unsuccessful for constipation. KUB today. increase prazosin to 4 mg QHS for nightmares. DC cogentin as not indicated and constipating. D/C geodon PRN anxiety/agitation in favor of seroquel trial. 11/14: no nightmares last night and better sleep. very anxious today 2/2 loud, aggressive, threatening peer. asking for numerous PRNs. one-time ativan order allowed. increase zoloft to 150 mg daily for depression. +SI. 11/16/2023: Overall will increase olanzapine to 30 mg and also Seroquel 100 mg 3 times per day with 100 mg as needed. Will continue to monitor bowel regimen in the context of med changes. 11/17/2023: No changes 11/17: stable. modest improvement in Sx. increase prazosin to 5 mg QHS. increase hydroxyzine to 75 mg per dose. +CAH to cut self and seeing shadows, which she finds quite anxiogenic. 11/18: stable. no nightmares or sweats last night, slept well. continues anxious days, but pushing herself to confront it. planning for saturday discharge, no med changes today. Reason for continued inpatient stay Substantial Risk for: rapid decompensation Time Spent With Patient Time: Total time managing care of this patient today __25__ minutes.
[2023-11-19] MEDS: Cyclobenzaprine HCl 5 MG TABLET PO ×2 (16:28→20:50)
[2023-11-19 20:00] VITALS: BP 126/75; PULSE 100; RESP 16; TEMP 37.1; O2SAT 99
[2023-11-19] MEDS: OLANZapine 10 MG TABLET 30 MG PO (20:52)
[2023-11-19] MEDS: Prazosin HCL 5 MG CAPSULE PO (20:55)
[2023-11-19] MEDS: TRAZODONE HCL 250 MG PO (20:57)
[2023-11-20] MEDS: Omeprazole 20 MG CAPSULE.DR PO ×2 (07:32→16:22)
[2023-11-20 07:56] VITALS: BP 130/64; PULSE 97; RESP 16; TEMP 36.7; O2SAT 97
[2023-11-20] MEDS: polyethylene glycoL 3350 17 GM POWD.PACK PO (08:02)
[2023-11-20] MEDS: Sertraline HCL 50 MG TABLET 150 MG PO (08:03)
[2023-11-20] MEDS: Docusate Sodium 100 MG CAPSULE PO ×2 (08:04→20:03)
[2023-11-20] MEDS: Sucralfate 1 GM TABLET PO ×4 (08:04→20:03)
[2023-11-20] MEDS: QUEtiapine Fumarate 100 MG TABLET PO ×4 (08:05→20:04)
[2023-11-20] MEDS: Lactulose 20 GM/30 ML SOLUTION 30 GM PO ×3 (08:05→19:59)
[2023-11-20] MEDS: Fluticasone/Vilanterol 100/25 BLST.W.DEV 1 PUFF INHALE (08:06)
[2023-11-20] MEDS: Nicotine 14 MG PATCH.TD24 TRANSDERMA (08:06)
[2023-11-20] MEDS: Acetaminophen 325 MG TABLET 650 MG PO ×2 (08:10→16:24)
[2023-11-20] MEDS: Cyclobenzaprine HCl 5 MG TABLET PO ×3 (08:10→20:04)
[2023-11-20] MEDS: hydrOXYzine HCL 25 MG TABLET 75 MG PO ×2 (13:20→20:01)
[2023-11-20] MEDS: Capsaicin 0.025% Cream 60 GM TUBE 1 APPL TOPICAL (13:20)
--- NOTE | 2023-11-20 13:59 | HO.PSYCHPN ---
Subjective Subjective Date of Service: 11/20/23 Reason For Visit: SI Interim History: calm, cooperative. slight nightmare last night. VS stable and good. would like to increase prazosin to 6 mg QHS. went out for [employer] yesterday, about which she is quite proud. planning for discharge saturday. c/o left ear pain, exacerbated with jaw opening. h/o ear infections. per staff, denies depression, endorses anxiety 8. taking PRNs for anxiety. slept about 8 hours. c.o pain and anxiety. Mental Status Exam Mental Status Exam Narrative: Pleasant. Engaged. adequately dressed and groomed. Alert and oriented. no PMA/PMR. speech nml rate and amount, nml ZANDRA. thoughts linear and logical. affect non-labile, constricted. mood anxious. No SI/HI/AVH expressed. Insight and judgment fair. Diagnostics Vital Signs (24Hr): Vital Signs - 24 hr 11/19/23 20:00 11/20/23 07:56 Temperature 98.7 F 98.1 F Pulse Rate 100 97 Respiratory Rate 16 16 Blood Pressure 126/75 130/64 Pulse Oximetry 99 97 Oxygen Delivery Method Room Air Room Air BMI result Body Mass Index 30.6 Labs 11/11/23 10:33 11/11/23 10:33 Imaging Radiology Impressions: ITS Impressions Abdomen X-Ray 11/14/23 12:24 IMPRESSION: Moderate amount of stool from the cecum through the descending colon consistent with constipation. Medications Medications Current Medications Acetaminophen (Acetaminophen 325 Mg Tablet) 650 mg PO Q6H PRN PRN Reason: Headache/Pain Mild Scale (1-3) Last Admin: 11/20/23 08:10 Dose: 650 mg Al Hydroxide/Mg Hydroxide (Magnesium Hydrox/Alum Hydrox 30 Ml Oral.Susp) 30 ml PO Q6H PRN PRN Reason: Heartburn/Nausea Albuterol Sulfate (Albuterol Sulfate 90 Mcg 8 Gm Inhaler) 1 puff INHALE RQ4H PRN PRN Reason: Wheezing Last Admin: 11/14/23 20:35 Dose: 1 puff Capsaicin (Capsaicin 0.025% Cream 60 Gm Tube) 1 appl TOPICAL QID PRN; Protocol PRN Reason: Pain, Moderate(Pain Scale 4-6) Last Admin: 11/20/23 13:20 Dose: 1 appl Cyclobenzaprine HCl (Cyclobenzaprine Hcl 5 Mg Tablet) 5 mg PO TID PRN PRN Reason: back spasm Last Admin: 11/20/23 08:10 Dose: 5 mg Docusate Sodium (Docusate Sodium 100 Mg Capsule) 100 mg PO BID [facility] Last Admin: 11/20/23 08:04 Dose: 100 mg Fluticasone/Vilanterol (Fluticasone/Vilanterol 100/25 Blst.W.Dev) 1 puff INHALE RDAILY [facility] Last Admin: 11/20/23 08:06 Dose: 1 puff Hydroxyzine HCl (Hydroxyzine Hcl 25 Mg Tablet) 75 mg PO BID PRN PRN Reason: anxiety Last Admin: 11/20/23 13:20 Dose: 75 mg Lactulose (Lactulose 20 Gm/30 Ml Solution) 30 gm PO TID [facility] Last Admin: 11/20/23 08:05 Dose: 30 gm Magnesium Hydroxide (Milk Of Magnesia 30 Ml Oral.Susp) 30 ml PO DAILY PRN PRN Reason: Constipation Last Admin: 11/18/23 15:07 Dose: 30 ml Multi-Ingred Cream/Lotion/Oil/Oint (Mineral Oil/Petrolatum,White 106 Gm Tube) 1 appl TOPICAL BID [facility]; Protocol Last Admin: 11/20/23 08:12 Dose: Not Given Nicotine (Nicotine 14 Mg Patch.Td24) 14 mg TRANSDERMA DAILY [facility] Last Admin: 11/20/23 08:06 Dose: 14 mg Nicotine Polacrilex (Nicotine Polacrilex 2 Mg Gum) 2 mg BUCCAL Q2H PRN PRN Reason: Nicotine Cravings Last Admin: 11/19/23 11:43 Dose: 2 mg Pt Own (Fluticasone Furoate [Arnuity Ellipta] 100 Mcg/Actuation Blister 1 inhalation INHALE DAILY [facility] Last Admin: 11/20/23 08:11 Dose: Not Given Olanzapine (Olanzapine 10 Mg Tablet) 30 mg PO BEDTIME [facility] Last Admin: 11/19/23 20:52 Dose: 30 mg Omeprazole (Omeprazole 20 Mg Capsule.Dr) 20 mg PO BID@0630,1630 [facility] Last Admin: 11/20/23 07:32 Dose: 20 mg Polyethylene Glycol (Polyethylene Glycol 3350 17 Gm Powd.Pack) 17 gm PO DAILY [facility] Last Admin: 11/20/23 08:02 Dose: 17 gm Prazosin HCl (Prazosin Hcl 1 Mg Capsule) 6 mg PO BEDTIME [facility]; Protocol Quetiapine Fumarate (Quetiapine Fumarate 100 Mg Tablet) 100 mg PO BID PRN PRN Reason: severe anxiety Last Admin: 11/20/23 13:20 Dose: 100 mg Quetiapine Fumarate (Quetiapine Fumarate 100 Mg Tablet) 100 mg PO TID [facility] Last Admin: 11/20/23 08:05 Dose: 100 mg Sertraline HCl (Sertraline Hcl 50 Mg Tablet) 150 mg PO DAILY [facility] Last Admin: 11/20/23 08:03 Dose: 150 mg Sucralfate (Sucralfate 1 Gm Tablet) 1 gm PO QIDACHS [facility] Last Admin: 11/20/23 11:36 Dose: 1 gm Trazodone HCl 200 mg/ (Trazodone HCl 50 mg) 250 mg PO BEDTIME [facility] Last Admin: 11/19/23 20:57 Dose: 250 mg Allergies Allergies Allergy/AdvReac Type Severity Reaction Status Date / Time almond Allergy Severe Anaphylaxis Verified 11/11/23 09:31 Penicillins Allergy Severe Anaphylaxis Verified 11/11/23 09:31 shrimp Allergy Severe Anaphylaxis Verified 11/11/23 09:31 peanuts Allergy Severe Anaphylaxis Uncoded 11/11/23 09:31 Assessment & Plan Assessment & Plan (1) Cocaine abuse: Status: Acute Code(s): F14.10 - Cocaine abuse, uncomplicated (2) Cannabis abuse: Status: Acute Code(s): F12.10 - Cannabis abuse, uncomplicated (3) PTSD (post-traumatic stress disorder): Status: Acute Code(s): F43.10 - Post-traumatic stress disorder, unspecified (4) MDD (major depressive disorder), recurrent episode: Status: Acute Code(s): F33.9 - Major depressive disorder, recurrent, unspecified Plan 11/12: restart home medications. stabilize inpatient. T/C PHP at discharge. 11/13: PEG and enema unsuccessful for constipation. KUB today. increase prazosin to 4 mg QHS for nightmares. DC cogentin as not indicated and constipating. D/C geodon PRN anxiety/agitation in favor of seroquel trial. 11/14: no nightmares last night and better sleep. very anxious today 2/2 loud, aggressive, threatening peer. asking for numerous PRNs. one-time ativan order allowed. increase zoloft to 150 mg daily for depression. +SI. 11/16/2023: Overall will increase olanzapine to 30 mg and also Seroquel 100 mg 3 times per day with 100 mg as needed. Will continue to monitor bowel regimen in the context of med changes. 11/17/2023: No changes 11/17: stable. modest improvement in Sx. increase prazosin to 5 mg QHS. increase hydroxyzine to 75 mg per dose. +CAH to cut self and seeing shadows, which she finds quite anxiogenic. 11/18: stable. no nightmares or sweats last night, slept well. continues anxious days, but pushing herself to confront it. planning for saturday discharge, no med changes today. 11/19: mild nightmare, increase prazosin to 6 mg. managing anxiety on intense unit well. planning for saturday discharge. hospitalist consult for ear pain. Reason for continued inpatient stay Substantial Risk for: rapid decompensation Time Spent With Patient Time: Total time managing care of this patient today __35__ minutes.
--- NOTE | 2023-11-20 14:27 | PM.EVENT ---
Event Note Date of Service: 11/20/23 Event Note: 38-year-old female admitted to adult Psychiatry with consult placed to hospitalist service for evaluation of left ear pain. She reports she developed left ear pain starting yesterday that is mild but worsened with opening and closing of the jaw. Denies any fevers, chills, sore throat, congestion, cough. No rhinorrhea. She states she had similar pain in the ear last year due to cerumen impaction. On exam, there is mild pain with manipulation of the pinna and canal is mildly erythematous without edema or purulent drainage. TM is intact, pearly jones, with good cone of light. No air-fluid levels noted A/P: There may be a component of mild otitis externa in the left ear. Will treat with Cortisporin drops to the left ear. Given exacerbation of pain with opening and closing of the jaw, there also may be increased pressure in the Eustachian tube. Will prescribe Flonase nasal spray No evidence of otitis media Can also use ibuprofen/tylenol and warm compresses to the ear for symptomatic relief Thank you for allowing me to participate in this consult. Signing off at this time. Please do not hesitate to call for further questions or for any acute medical concerns Time Spent With Patient Time: Total time managing care of this patient today ____ minutes.
[2023-11-20] MEDS: NeoMYCIN/Polymyxin/HC Otic Sol BOTTLE 4 DROP EAR-LEFT ×2 (14:58→20:05)
[2023-11-20] MEDS: Nicotine Polacrilex 2 MG GUM BUCCAL (18:48)
[2023-11-20 19:55] VITALS: BP 125/72; PULSE 102; RESP 16; TEMP 37.4; O2SAT 98
[2023-11-20 20:01] VITALS: BP 125/72
[2023-11-20] MEDS: Prazosin HCL 1 MG CAPSULE 6 MG PO (20:01)
[2023-11-20] MEDS: OLANZapine 10 MG TABLET 30 MG PO (20:01)
[2023-11-20] MEDS: TRAZODONE HCL 250 MG PO (20:03)
[2023-11-21] MEDS: Sucralfate 1 GM TABLET PO ×4 (06:43→20:21)
[2023-11-21] MEDS: Omeprazole 20 MG CAPSULE.DR PO ×2 (06:43→15:34)
[2023-11-21 08:25] VITALS: BP 121/60; PULSE 90; RESP 16; TEMP 37.4; O2SAT 96
[2023-11-21] MEDS: Fluticasone/Vilanterol 100/25 BLST.W.DEV 1 PUFF INHALE (08:28)
[2023-11-21] MEDS: Docusate Sodium 100 MG CAPSULE PO ×2 (08:29→20:20)
[2023-11-21] MEDS: QUEtiapine Fumarate 100 MG TABLET PO ×5 (08:29→23:31)
[2023-11-21] MEDS: Sertraline HCL 50 MG TABLET 150 MG PO (08:29)
[2023-11-21] MEDS: polyethylene glycoL 3350 17 GM POWD.PACK PO (08:31)
[2023-11-21] MEDS: Nicotine 14 MG PATCH.TD24 TRANSDERMA (08:32)
[2023-11-21] MEDS: NeoMYCIN/Polymyxin/HC Otic Sol BOTTLE 4 DROP EAR-LEFT ×3 (08:33→20:22)
[2023-11-21] MEDS: Capsaicin 0.025% Cream 60 GM TUBE 1 APPL TOPICAL (09:16)
[2023-11-21] MEDS: Mineral Oil/Petrolatum,White 106 GM Tube 1 APPL TOPICAL (09:22)
[2023-11-21] MEDS: Acetaminophen 325 MG TABLET 650 MG PO (10:28)
--- NOTE | 2023-11-21 13:28 | HO.PSYCHPN ---
Subjective Subjective Date of Service: 11/21/23 Reason For Visit: SI Subjective Notes: Conditional Voluntary Interim History: Reviewed with Dr. Vidal. active on unit. Pt reports having some anxiety about leaving tomorrow but feeling ready to go . She reports sleeping well. denies SI/HI/AH but states she continues to still see shadows . Medication Compliance: Yes Side effects from medications: No Attending Groups: Yes Review of Systems Constitutional: Reports as per HPI Eyes: Reports as per HPI Reports as per HPI Cardiovascular: Reports as per HPI Respiratory: Reports as per HPI Gastrointestinal: Reports as per HPI Genitourinary: Reports as per HPI Musculoskeletal: Reports as per HPI Skin/Breast: Reports as per HPI Reports as per HPI Psychiatric: Reports as per HPI Endocrine: Reports as per HPI Hematologic/Lymphatic: Reports as per HPI Allergic/Immunologic: Reports as per HPI Mental Status Exam Mental Status Exam Narrative: Pt is alert and oriented; behavior is cooperative, friendly and calm; dressed in casual attire; mood is described as good but anxious ; eye contact appropriate; Speech is normal rate, volume and not pressured; thought process is organized; Thought content is on discharge; denies SI/HI/AH, pt reports she continues to see shadows . Diagnostics Vital Signs (24Hr): Vital Signs - 24 hr 11/20/23 19:55 11/20/23 20:01 11/21/23 08:25 Temperature 99.3 F 99.3 F Pulse Rate 102 H 90 Respiratory Rate 16 16 Blood Pressure 125/72 125/72 121/60 Pulse Oximetry 98 96 Oxygen Delivery Method Room Air Room Air BMI result Body Mass Index 30.6 Labs 11/11/23 10:33 11/11/23 10:33 Imaging Radiology Impressions: ITS Impressions Abdomen X-Ray 11/14/23 12:24 IMPRESSION: Moderate amount of stool from the cecum through the descending colon consistent with constipation. Medications Medications Current Medications Acetaminophen (Acetaminophen 325 Mg Tablet) 650 mg PO Q6H PRN PRN Reason: Headache/Pain Mild Scale (1-3) Last Admin: 11/21/23 10:28 Dose: 650 mg Al Hydroxide/Mg Hydroxide (Magnesium Hydrox/Alum Hydrox 30 Ml Oral.Susp) 30 ml PO Q6H PRN PRN Reason: Heartburn/Nausea Albuterol Sulfate (Albuterol Sulfate 90 Mcg 8 Gm Inhaler) 1 puff INHALE RQ4H PRN PRN Reason: Wheezing Last Admin: 11/14/23 20:35 Dose: 1 puff Capsaicin (Capsaicin 0.025% Cream 60 Gm Tube) 1 appl TOPICAL QID PRN; Protocol PRN Reason: Pain, Moderate(Pain Scale 4-6) Last Admin: 11/21/23 09:16 Dose: 1 appl Cyclobenzaprine HCl (Cyclobenzaprine Hcl 5 Mg Tablet) 5 mg PO TID PRN PRN Reason: back spasm Last Admin: 11/20/23 20:04 Dose: 5 mg Docusate Sodium (Docusate Sodium 100 Mg Capsule) 100 mg PO BID [facility] Last Admin: 11/21/23 08:29 Dose: 100 mg Fluticasone Propionate (Fluticasone Propionate Nasal 16 Gm [place]) 1 spray NOSTRIL-L BID [facility] Last Admin: 11/21/23 09:27 Dose: Not Given Fluticasone/Vilanterol (Fluticasone/Vilanterol 100/25 Blst.W.Dev) 1 puff INHALE RDAILY [facility] Last Admin: 11/21/23 08:28 Dose: 1 puff Hydroxyzine HCl (Hydroxyzine Hcl 25 Mg Tablet) 75 mg PO BID PRN PRN Reason: anxiety Last Admin: 11/20/23 20:01 Dose: 75 mg Lactulose (Lactulose 20 Gm/30 Ml Solution) 30 gm PO TID [facility] Last Admin: 11/21/23 09:27 Dose: Not Given Magnesium Hydroxide (Milk Of Magnesia 30 Ml Oral.Susp) 30 ml PO DAILY PRN PRN Reason: Constipation Last Admin: 11/18/23 15:07 Dose: 30 ml Multi-Ingred Cream/Lotion/Oil/Oint (Mineral Oil/Petrolatum,White 106 Gm Tube) 1 appl TOPICAL BID [facility]; Protocol Last Admin: 11/21/23 09:22 Dose: 1 appl Neomycin/Polymyxin/Hydrocortisone (Neomycin/Polymyxin/Hc Otic Carmen Bottle) 4 drop EAR-LEFT TID [facility] Last Admin: 11/21/23 08:33 Dose: 4 drop Nicotine (Nicotine 14 Mg Patch.Td24) 14 mg TRANSDERMA DAILY [facility] Last Admin: 11/21/23 08:32 Dose: 14 mg Nicotine Polacrilex (Nicotine Polacrilex 2 Mg Gum) 2 mg BUCCAL Q2H PRN PRN Reason: Nicotine Cravings Last Admin: 11/20/23 18:48 Dose: 2 mg Pt Own (Fluticasone Furoate [Arnuity Ellipta] 100 Mcg/Actuation Blister 1 inhalation INHALE DAILY [facility] Last Admin: 11/21/23 09:29 Dose: Not Given Olanzapine (Olanzapine 10 Mg Tablet) 30 mg PO BEDTIME [facility] Last Admin: 11/20/23 20:01 Dose: 30 mg Omeprazole (Omeprazole 20 Mg Capsule.Dr) 20 mg PO BID@0630,1630 [facility] Last Admin: 11/21/23 06:43 Dose: 20 mg Polyethylene Glycol (Polyethylene Glycol 3350 17 Gm Powd.Pack) 17 gm PO DAILY [facility] Last Admin: 11/21/23 08:31 Dose: 17 gm Prazosin HCl (Prazosin Hcl 1 Mg Capsule) 6 mg PO BEDTIME [facility]; Protocol Last Admin: 11/20/23 20:01 Dose: 6 mg Quetiapine Fumarate (Quetiapine Fumarate 100 Mg Tablet) 100 mg PO BID PRN PRN Reason: severe anxiety Last Admin: 11/20/23 13:20 Dose: 100 mg Quetiapine Fumarate (Quetiapine Fumarate 100 Mg Tablet) 100 mg PO TID [facility] Last Admin: 11/21/23 08:29 Dose: 100 mg Sertraline HCl (Sertraline Hcl 50 Mg Tablet) 150 mg PO DAILY [facility] Last Admin: 11/21/23 08:29 Dose: 150 mg Simethicone (Simethicone 80 Mg Tab.Chew) 80 mg PO TID PRN PRN Reason: Gas Sucralfate (Sucralfate 1 Gm Tablet) 1 gm PO QIDACHS [facility] Last Admin: 11/21/23 11:49 Dose: 1 gm Trazodone HCl 200 mg/ (Trazodone HCl 50 mg) 250 mg PO BEDTIME [facility] Last Admin: 11/20/23 20:03 Dose: 250 mg Allergies Allergies Allergy/AdvReac Type Severity Reaction Status Date / Time almond Allergy Severe Anaphylaxis Verified 11/11/23 09:31 Penicillins Allergy Severe Anaphylaxis Verified 11/11/23 09:31 shrimp Allergy Severe Anaphylaxis Verified 11/11/23 09:31 peanuts Allergy Severe Anaphylaxis Uncoded 11/11/23 09:31 Assessment & Plan Assessment & Plan (1) Cocaine abuse: Status: Acute Code(s): F14.10 - Cocaine abuse, uncomplicated (2) Cannabis abuse: Status: Acute Code(s): F12.10 - Cannabis abuse, uncomplicated (3) PTSD (post-traumatic stress disorder): Status: Acute Code(s): F43.10 - Post-traumatic stress disorder, unspecified (4) MDD (major depressive disorder), recurrent episode: Status: Acute Code(s): F33.9 - Major depressive disorder, recurrent, unspecified Plan 11/12: restart home medications. stabilize inpatient. T/C PHP at discharge. 11/13: PEG and enema unsuccessful for constipation. KUB today. increase prazosin to 4 mg QHS for nightmares. DC cogentin as not indicated and constipating. D/C geodon PRN anxiety/agitation in favor of seroquel trial. 11/14: no nightmares last night and better sleep. very anxious today 07/19 loud, aggressive, threatening peer. asking for numerous PRNs. one-time ativan order allowed. increase zoloft to 150 mg daily for depression. +SI. 11/16/2023: Overall will increase olanzapine to 30 mg and also Seroquel 100 mg 3 times per day with 100 mg as needed. Will continue to monitor bowel regimen in the context of med changes. 11/17/2023: No changes 11/17: stable. modest improvement in Sx. increase prazosin to 5 mg QHS. increase hydroxyzine to 75 mg per dose. +CAH to cut self and seeing shadows, which she finds quite anxiogenic. 11/18: stable. no nightmares or sweats last night, slept well. continues anxious days, but pushing herself to confront it. planning for saturday discharge, no med changes today. 11/19: mild nightmare, increase prazosin to 6 mg. managing anxiety on intense unit well. planning for saturday discharge. hospitalist consult for ear pain. 11/20: active on unit. Pt reports having some anxiety about leaving tomorrow but feeling ready to go . She reports sleeping well. denies SI/HI/AH but states she continues to still see shadows . Patient educated on: diagnosis, medication risk/benefits and therapeutic strategies Informed Consent: understands Reason for continued inpatient stay Substantial Risk for: med/psych decompensation Time Spent With Patient Time: Total time managing care of this patient today _20___ minutes.
[2023-11-21] MEDS: Cyclobenzaprine HCl 5 MG TABLET PO (14:15)
[2023-11-21] MEDS: Lactulose 20 GM/30 ML SOLUTION 30 GM PO ×2 (15:36→20:14)
[2023-11-21 20:00] VITALS: BP 121/63; PULSE 107; RESP 16; TEMP 37.2; O2SAT 97
[2023-11-21] MEDS: TRAZODONE HCL 250 MG PO (20:18)
[2023-11-21] MEDS: OLANZapine 10 MG TABLET 30 MG PO (20:20)
[2023-11-21] MEDS: hydrOXYzine HCL 25 MG TABLET 75 MG PO (20:20)
[2023-11-21 20:21] VITALS: BP 121/63
[2023-11-21] MEDS: Prazosin HCL 1 MG CAPSULE 6 MG PO (20:21)
[2023-11-22] MEDS: Omeprazole 20 MG CAPSULE.DR PO (06:24)
[2023-11-22 07:50] VITALS: BP 105/52; PULSE 92; RESP 16; TEMP 36.9; O2SAT 96
[2023-11-22] MEDS: Nicotine 14 MG PATCH.TD24 TRANSDERMA (08:03)
[2023-11-22] MEDS: Fluticasone/Vilanterol 100/25 BLST.W.DEV 1 PUFF INHALE (08:03)
[2023-11-22] MEDS: Lactulose 20 GM/30 ML SOLUTION 30 GM PO (08:04)
[2023-11-22] MEDS: polyethylene glycoL 3350 17 GM POWD.PACK PO (08:04)
[2023-11-22] MEDS: Sertraline HCL 50 MG TABLET 150 MG PO (08:05)
[2023-11-22] MEDS: Docusate Sodium 100 MG CAPSULE PO (08:06)
[2023-11-22] MEDS: Sucralfate 1 GM TABLET PO ×2 (08:06→11:45)
[2023-11-22] MEDS: QUEtiapine Fumarate 100 MG TABLET PO ×2 (08:06→11:44)
[2023-11-22] MEDS: Capsaicin 0.025% Cream 60 GM TUBE 1 APPL TOPICAL (08:13)
[2023-11-22] MEDS: NeoMYCIN/Polymyxin/HC Otic Sol BOTTLE 4 DROP EAR-LEFT (08:13)
[2023-11-22] MEDS: Mineral Oil/Petrolatum,White 106 GM Tube 1 APPL TOPICAL (08:14)
[2023-11-22] MEDS: hydrOXYzine HCL 25 MG TABLET 75 MG PO (08:16)
[2023-11-22] MEDS: Fluticasone Propionate Nasal 16 GM SPRAY 1 SPRAY NOSTRIL-L (10:20)
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
== END 2023-11-22 12:50 | disposition home or self-care (01) | DRG 751 ==
LOC: HO.ED 10:36 → HO.PADLT16 11-13 11:02
PROVIDERS: Physician Assistant Medical; Admitting Provider Psychiatry & Neurology Psychiatry; Emergency Provider Student in an Organized Health Care Education/Training Program; PCP Nurse Practitioner Family; Visit Provider Psychiatry & Neurology Psychiatry
DX: F33.9 Major depressive disorder, recurrent, unspecified (principal); R45.851 Suicidal ideations; Z91.148 Patient's other noncompliance with medication regimen for other reason; K59.00 Constipation, unspecified; F43.10 Post-traumatic stress disorder, unspecified; H60.92 Unspecified otitis externa, left ear; F12.10 Cannabis abuse, uncomplicated; F14.10 Cocaine abuse, uncomplicated; Z20.822 Contact with and (suspected) exposure to COVID-19; Z91.51 Personal history of suicidal behavior; Z79.51 Long term (current) use of inhaled steroids; Z87.891 Personal history of nicotine dependence; Z79.899 Other long term (current) drug therapy
CPT/HCPCS: 0241U; 74019; 80048; 80076; 80307; 81001; 81025; 83690; 84484; 85025; 93005; 99285; S9485

== ENCOUNTER → 2023-11-11 10:23 | Outpatient (BNV) | payer MEDICAID, SELFPAY | PROVIDERS: Emergency Provider Student in an Organized Health Care Education/Training Program; PCP Nurse Practitioner Family; Visit Provider Internal Medicine | DX: I45.81 Long QT syndrome (principal) | CPT/HCPCS: 93010 ==

== ENCOUNTER → 2023-11-13 10:56 | Outpatient (BNV) | payer MEDICAID, SELFPAY | PROVIDERS: Admitting Provider Psychiatry & Neurology Psychiatry; Emergency Provider Student in an Organized Health Care Education/Training Program; PCP Nurse Practitioner Family; Visit Provider Physician Assistant | DX: Z00.00 Encounter for general adult medical examination without abnormal findings (principal) | CPT/HCPCS: 99499 ==

== ENCOUNTER → 2023-11-13 10:56 | Outpatient (BNV) | payer OTHER, SELFPAY | PROVIDERS: Admitting Provider Psychiatry & Neurology Psychiatry; Emergency Provider Student in an Organized Health Care Education/Training Program; PCP Nurse Practitioner Family; Visit Provider Psychiatry & Neurology Psychiatry | DX: F33.3 Major depressive disorder, recurrent, severe with psychotic symptoms (principal); F14.10 Cocaine abuse, uncomplicated; F12.10 Cannabis abuse, uncomplicated; F43.11 Post-traumatic stress disorder, acute | CPT/HCPCS: 99231; 99232; 99233 ==

== ENCOUNTER 2024-05-26 09:15 | Outpatient (REF) | payer OTHER, SELFPAY ==
--- OUTSIDE RECORDS SUMMARY | 2024-05-27 19:24 | XMS_ITS | Clinical Summary ---
Author Organization Unknown Care Team Providers Care Child Care Team Lead Name Role Phone KATHERIN VARGHESE, EDA Unavailable Unavailable TRU MACK, NANCY Unavailable Unavailable RUI MACK, JOSELYN Unavailable Unavailable Payers Payer Name Policy Type Policy Number Effective Date Expira tion Date MEDICAID [facility] [id number] Problems Condition Name Condition Details Condition Category Status Onset Date Resolution Date Last Treatment Date Treating Clinician Comments POST-TRAUMAT IC STRESS DISORDER, UNSPECIFIED Active 08-22 00:00: 00 TYPE 2 DIABETES MELLITUS WITHOUT COMPLICATION S Active 08-22 00:00: 00 MAJOR DEPRESSIVE DISORDER, RECURRENT, MODERATE Active 08-22 00:00: 00 Allergies, Adverse Reactions, Alerts Allergy Name Allergy Type Status Severity Reaction(s) Onset Date Inactive Date Treating Clinician Comments ALMONDS Propensity to adverse reactions Active 2023-08 12:45:3 7 PEANUT Propensity to adverse reactions Active 2023-08 12:46:5 8 SHRIMP/SH ELL FISH Propensity to adverse reactions Active 2023-08 12:45:4 8 PCNS Propensity to adverse reactions Active 2023-08 12:47:0 8 Medications Ordered Medication Name Filled Medication Name Start Date Stop Date Current Medication? Ordering Clinician Indication Dosage Frequency Signature (SIG) Comments Components Arnuity Ellipta 100 mcg/actuati on powder for inhalation 09-03 00:00: 00 Yes [id number] Per instruc tions EVERY DAY AT Per instructio ns EVERY DAY AT (route: inhalation ) Med Classific ation: Respirato ry Therapy Agents metformin 500 mg tablet 09-03 00:00: 00 Yes [id number] 1 tablet AT BEDTIME 1 tablet AT BEDTIME (route: oral) Med Classific ation: Endocrine Vitamins Plus Low Iron 27 mg iron-1 mg tablet 09-03 00:00: 00 Yes [id number] Per instruc tions EVERY DAY Per instructio ns EVERY DAY (route: oral) Med Classific ation: Electroly te Balance-N utritiona l Products Calmol-4 76 %-10 % rectal suppository 09-03 00:00: 00 Yes [id number] 1 supposi tory, rectal BEDTIME 1 suppositor y, rectal BEDTIME (route: rectal) Med Classific ation: Anorectal Preparati ons capsaicin 0.025 % topical cream 09-03 00:00: 00 Yes [id number] Per instruc tions 4 TIMES DAILY Per instructio ns 4 TIMES DAILY (route: topical) Med Classific ation: Dermatolo gical clonazepam 0.5 mg tablet 09-03 00:00: 00 Yes [id number] 1 tablet NOON 1 tablet NOON (route: oral) Med Classific ation: Central Nervous System Agents docusate sodium 100 mg capsule 09-03 00:00: 00 Yes [id number] 1 capsule 2 TIMES DAILY 1 capsule 2 TIMES DAILY (route: oral) Med Classific ation: Gastroint estinal Therapy Agents fluticasone propionate 110 mcg/actuati on HFA aerosol inhaler 09-03 00:00: 00 Yes [id number] 1 puff 2 TIMES DAILY 1 puff 2 TIMES DAILY (route: inhalation ) Med Classific ation: Respirato ry Therapy Agents hydroxyzine pamoate 25 mg capsule 09-03 00:00: 00 Yes [id number] 1 capsule 2 TIMES DAILY 1 capsule 2 TIMES DAILY (route: oral) Med Classific ation: Central Nervous System Agents omeprazole 20 mg capsule,del ayed release 09-03 00:00: 00 Yes [id number] 1 capsule 2 TIMES DAILY 1 capsule 2 TIMES DAILY (route: oral) Med Classific ation: Gastroint estinal Therapy Agents polyethylen e glycol 3350 17 gram/dose oral powder 09-03 00:00: 00 Yes [id number] 17 gram DAILY 17 gram DAILY (route: oral) Med Classific ation: Gastroint estinal Therapy Agents prazosin 1 mg capsule 09-03 00:00: 00 Yes [id number] 3 capsule EVERY AM 3 capsule EVERY AM (route: oral) Med Classific ation: Cardiovas cular Therapy Agents prazosin 2 mg capsule 09-03 00:00: 00 Yes [id number] 3 capsule BEDTIME 3 capsule BEDTIME (route: oral) Med Classific ation: Cardiovas cular Therapy Agents quetiapine 50 mg tablet 09-03 00:00: 00 Yes [id number] 1 tablet 3 TIMES DAILY 1 tablet 3 TIMES DAILY (route: oral) Med Classific ation: Central Nervous System Agents sertraline 50 mg tablet 09-03 00:00: 00 Yes [id number] 3 tablet EVERY AM 3 tablet EVERY AM (route: oral) Med Classific ation: Central Nervous System Agents sucralfate 1 gram tablet 09-03 00:00: 00 Yes [id number] 1 tablet 4 TIMES DAILY 1 tablet 4 TIMES DAILY (route: oral) Med Classific ation: Gastroint estinal Therapy Agents Ventolin HFA 90 mcg/actuati on aerosol inhaler 09-03 00:00: 00 Yes [id number] 1 puff EVERY 4 HOURS 1 puff EVERY 4 HOURS (route: inhalation ) Med Classific ation: Respirato ry Therapy Agents ziprasidone 20 mg capsule 09-03 00:00: 00 Yes [id number] 1 capsule 2 TIMES DAILY 1 capsule 2 TIMES DAILY (route: oral) Med Classific ation: Central Nervous System Agents Vital Signs Vital Name Observation Time Observation Value Commen ts Temperature 2023-12-20 11:17:00.000 97.6 [degF] Temperature 2023-12-03 10:18:00.000 98.2 [degF] Temperature 2023-11-29 11:45:00.000 98.9 [degF] Temperature 2023-11-08 11:18:00.000 98.6 [degF] Pulse 2023-12-03 10:19:00.000 60 /min Pulse 2023-11-29 11:45:00.000 79 /min Pulse 2023-11-08 11:18:00.000 82 /min Respirations 2023-12-20 11:17:00.000 16 /min Respirations 2023-12-03 10:18:00.000 18 /min Respirations 2023-11-29 11:45:00.000 16 /min Respirations 2023-11-08 11:18:00.000 14 /min Systolic Blood Pressure 2023-12-20 11:17:00.000 112 mm [Hg] Systolic Blood Pressure 2023-12-03 10:18:00.000 127 mm [Hg] Systolic Blood Pressure 2023-11-29 11:45:00.000 129 mm [Hg] Systolic Blood Pressure 2023-11-08 11:18:00.000 127 mm [Hg] Diastolic Blood Pressure 2023-12-20 11:17:00.000 70 mm [Hg] Diastolic Blood Pressure 2023-12-03 10:18:00.000 85 mm [Hg] Diastolic Blood Pressure 2023-11-29 11:45:00.000 87 mm [Hg] Diastolic Blood Pressure 2023-11-08 11:18:00.000 84 mm [Hg] Plan of Treatment Planned Activity Planned Date Details Comments Future Scheduled Test SKILLED NU RSE TO EVALUATE PATIENT, IDENTIFY PRIMARY AND CO-MORBID CONDITIONS CODED PER CODING GUIDELINES, AND DEVELOP PATIENT SPECIFIC PLAN OF CARE THAT INCLUDES PATIENT GOAL FOR HOME HEALTH. [code = SKILLED NURSE TO EVALUATE PATIENT, IDENTIFY PRIMARY AND CO-MORBID CONDITIONS CODED PER CODING GUIDELINES, AND DEVELOP PATIENT SPECIFIC PLAN OF CARE THAT INCLUDES PATIENT GOAL FOR HOME HEALTH.] Future Scheduled Test SKILLED NU RSE TO PRE-POUR MEDICATION PER MEDICATION LIST THROUGH TO NEXT VISIT [code = SKILLED NURSE TO PRE-POUR MEDICATION PER MEDICATION LIST THROUGH TO NEXT VISIT] Future Scheduled Test SKILLED NU RSE TO O/A OF PATIENTS MENTAL/BEHAVIORAL STATUS, ASSESS VITAL SIGNS WEEKLY. ALLOW 2 PRNS FOR MEDICATION MANAGEMENT. [code = SKILLED NURSE TO O/A OF PATIENTS MENTAL/BEHAVIORAL STATUS, ASSESS VITAL SIGNS WEEKLY. ALLOW 2 PRNS FOR MEDICATION MANAGEMENT.] Future Scheduled Test SKILLED NU RSE FOR O/A OF GENERAL HEALTH STATUS OF PAIN, CARDIAC, RESPIRATORY, GASTROINTESTINAL, GENITOURINARY, SKIN, NEUROLOGIC, ENDOCRINE SYSTEMS TO IDENTIFY CHANGES ASSOCIATED WITH EXACERBATION FOR EARLY INTERVENTION OF COMPLICATIONS WEEKLY [code = SKILLED NURSE FOR O/A OF GENERAL HEALTH STATUS OF PAIN, CARDIAC, RESPIRATORY, GASTROINTESTINAL, GENITOURINARY, SKIN, NEUROLOGIC, ENDOCRINE SYSTEMS TO IDENTIFY CHANGES ASSOCIATED WITH EXACERBATION FOR EARLY INTERVENTION OF COMPLICATIONS WEEKLY] Future Scheduled Test SKILLED NU RSE FOR O/A AND SKILLED TEACHING OF COPING SKILLS TO MANAGE ANXIETY AND MAINTAIN SAFETY. [code = SKILLED NURSE FOR O/A AND SKILLED TEACHING OF COPING SKILLS TO MANAGE ANXIETY AND MAINTAIN SAFETY.] Future Scheduled Test SKILLED NU RSE FOR O/A AND SKILLED TEACHING RELATED TO MANAGEMENT OF DEPRESSIVE SYMPTOMS AND/OR DEPRESSION. SN TO REPORT SIGNIFICANT CHANGE IN DEPRESSIVE SYMPTOMS TO CLINICAL PROVIDER FOR EARLY INTERVENTION. [code = SKILLED NURSE FOR O/A AND SKILLED TEACHING RELATED TO MANAGEMENT OF DEPRESSIVE SYMPTOMS AND/OR DEPRESSION. SN TO REPORT SIGNIFICANT CHANGE IN DEPRESSIVE SYMPTOMS TO CLINICAL PROVIDER FOR EARLY INTERVENTION.] Future Scheduled Test SKILLED NU RSE FOR O/A AND TEACHING OF DIABETIC MANAGEMENT INCLUDING BLOOD SUGAR MONITORING/USE OF GLUCOMETER, DIABETIC DIET, LOWER EXTREMITY SKIN INSPECTION, PROPER SKIN/FOOT CARE, AND SIGNS AND SYMPTOMS HYPO/HYPERGLYCEMIA TO REPORT. [code = SKILLED NURSE FOR O/A AND TEACHING OF DIABETIC MANAGEMENT INCLUDING BLOOD SUGAR MONITORING/USE OF GLUCOMETER, DIABETIC DIET, LOWER EXTREMITY SKIN INSPECTION, PROPER SKIN/FOOT CARE, AND SIGNS AND SYMPTOMS HYPO/HYPERGLYCEMIA TO REPORT.] Future Scheduled Test SKILLED NU RSE TO REVIEW PATIENT MEDICATIONS. INSTRUCT PATIENT/CAREGIVER ON MONITORING OF EFFECTIVENESS, ADVERSE DRUG REACTIONS, SIDE EFFECTS OF ALL MEDICATIONS (PRESCRIPTION/-OTC), AND HOW AND WHEN TO REPORT PROBLEMS. [code = SKILLED NURSE TO REVIEW PATIENT MEDICATIONS. INSTRUCT PATIENT/CAREGIVER ON MONITORING OF EFFECTIVENESS, ADVERSE DRUG REACTIONS, SIDE EFFECTS OF ALL MEDICATIONS (PRESCRIPTION/-OTC), AND HOW AND WHEN TO REPORT PROBLEMS. ] Future Scheduled Test SKILLED NU RSE TO ASSESS PATIENTS PSYCHOSOCIAL STATUS TO IDENTIFY POTENTIAL ISSUES THAT MAY COMPLICATE THE PROVISION OF THE PLAN OF CARE INCLUDING THE PATIENTS ABILITY TO ACCESS COMMUNITY RESOURCES AND PSYCHOSOCIAL SUPPORT SERVICES. [code = SKILLED NURSE TO ASSESS PATIENTS PSYCHOSOCIAL STATUS TO IDENTIFY POTENTIAL ISSUES THAT MAY COMPLICATE THE PROVISION OF THE PLAN OF CARE INCLUDING THE PATIENTS ABILITY TO ACCESS COMMUNITY RESOURCES AND PSYCHOSOCIAL SUPPORT SERVICES.] Future Scheduled Test SKILLED NU RSE WILL MAINTAIN SITUATIONAL AWARENESS FOR SAFETY AND WILL NOTIFY CLINICAL OCCUPATIONAL MEDICINE PHYSICIAN AND PHYSICIAN/PROVIDER WITH ANY CHANGE IN CONDITION. [code = SKILLED NURSE WILL MAINTAIN SITUATIONAL AWARENESS FOR SAFETY AND WILL NOTIFY CLINICAL OCCUPATIONAL MEDICINE PHYSICIAN AND PHYSICIAN/PROVIDER WITH ANY CHANGE IN CONDITION.] Goal 2023-10-30 Patient Goal - TO TAKE ME ME DS RIGHT Goal 2023-12-26 Patient Goal - TO TAKE ME ME DS RIGHT Goal Provider Goal - A PLAN OF CARE WILL BE ESTABLISHED THAT MEETS PATIENT'S MCC NEEDS AND INCLUDES PATIENT GOAL FOR HOME HEALTH. Goal Provider Goal - PATIENT WILL COMPLY WITH MEDICATION WHEN SKILLED NURSE PRE-POURS MEDICATION THROUGHOUT CERTIFICATION PERIOD. Goal Provider Goal - ALTERED MENTAL/BEHAVIORAL STATUS WILL BE IDENTIFIED PROMPTLY AND INTERVENTION INITIATED QUICKLY TO MINIMIZE ASSOCIATED RISKS THROUGHOUT CERTIFICATION PERIOD. Goal Provider Goal - CHANGE IN GENERAL HEALTH STATUS WILL BE IDENTIFIED AND REPORTED TO PHYSICIAN FOR PROMPT INTERVENTION TO MINIMIZE ASSOCIATED RISKS THROUGHOUT CERTIFICATION PERIOD. Goal Provider Goal - PATIENT WILL BE ABLE TO PERFORM DAILY FUNCTIONS AND HAVE OPTIMAL IMPROVEMENT IN LEVEL OF ANXIETY THROUGHOUT CERTIFICATION PERIOD. Goal Provider Goal - PATIENT WILL REMAIN SAFE WITHOUT DECOMPENSATION IN DEPRESSIVE CONDITION, WHILE MAINTAINING OPTIMAL LEVEL OF MENTAL HEALTH AND WELL BEING THROUGHOUT CERTIFICATION PERIOD. Goal Provider Goal - PATIENT/CAREGIVER WILL VERBALIZE/DEMONSTRATE KNOWLEDGE OF DIABETIC MANAGEMENT. CHANGES IN DIABETIC STATUS WILL BE IDENTIFIED AND REPORTED TO PHYSICIAN FOR PROMPT INTERVENTION THROUGHOUT THE CERTIFICATION PERIOD. Goal Provider Goal - PATIENT/CAREGIVER WILL VERBALIZE UNDERSTANDING OF EDUCATION PROVIDED ON MEDICATIONS BY THE END OF THE CERTIFICATION PERIOD. Goal Provider Goal - PSYCHOSOCIAL NEEDS WILL BE IDENTIFIED AND PLAN IMPLEMENTED TO MINIMIZE RISK THROUGHOUT CERTIFICATION PERIOD. Goal Provider Goal - PATIENT WILL REMAIN SAFE IN THE COMMUNITY AND WILL BE FREE OF DANGER TO SELF AND OTHERS THROUGHOUT THE CERTIFICATION PERIOD. Reason for Visit INDEPENDENT IN THE HOME Encounters Start Date/Time End Date/Time Encounter Type Admission Type Attending [facility] Care Department Encounter ID Discharge Date Discharge Status Discharge Condition Discharge Reason Percent Goals Met 2023-09-04 00:00:00 2023-12-26 00:00:00 Outpatient RECERTIFIC JOSELYN [facility] [id number] 2023-12-26 00:00:00 DISCHARGE TO HOME OR SELF CARE INDEPENDEN T IN THE HOME NON COMPLIANT WITH PLAN OF TREATMENT 25.93
== END 2024-05-26 09:16 | disposition home or self-care (01) ==
LOC: HO.HHCX 09:15
PROVIDERS: PCP General Practice; Visit Provider Internal Medicine Geriatric Medicine
DX: R60.0 Localized edema (principal); M79.642 Pain in left hand; M79.641 Pain in right hand
CPT/HCPCS: 73130

== ENCOUNTER 2024-05-26 09:29 | Outpatient (REF) | payer MEDICAID, SELFPAY ==
[2024-05-26 11:50] LABS: MANUAL DIFF FLAG NO
[2024-05-26 11:56] LABS: Basophils Absolute Auto 0.1 X10*3/uL (0.0-0.2); Basophils Percent Auto 0.4 % (0-2); Eosinophils Absolute Auto 0.1 X10*3/uL (0.0-0.4); Eosinophils Percent Auto 0.5 % (0-4); Hematocrit 36.9 % (37.0-47.0); Hemoglobin 11.9 g/dl (12.0-16.0); Imm Gran Abs Auto 0.08 X10*3/uL (0.00-0.03); Imm Gran Pct Auto 0.7 % (0.0-0.4); Lymphocytes Absolute Auto 1.7 X10*3/uL (1.2-4.9); Lymphocytes Percent Auto 14.4 % (20-40); Mean Corpuscular HGB Conc 32.2 g/dl (31.0-35.0); Mean Corpuscular Hemoglobin 23.7 pg (27.0-33.0); Mean Corpuscular Volume 73.4 fL (80.0-98.0); Mean Platelet Volume 10.6 fL (9.4-12.3); Monocytes Absolute Auto 0.5 X10*3/uL (0.1-1.2); Monocytes Percent Auto 4.1 % (2-11); Neutrophils Absolute Auto 9.3 x10*3/uL (2.0-8.3); Neutrophils Percent Auto 79.9 % (45-73); Platelet Count 372 X10*3/uL (160-400); Red Blood Count 5.03 X10*6/uL (4.20-5.50); Red Cell Distribution Width 16.6 % (11.0-16.0); White Blood Count 11.7 X10*3/uL (4.8-10.8)
[2024-05-26 12:16] LABS: Rheumatoid Factor < 13.0 IU/mL (<15.0)
[2024-05-26 12:30] LABS: Erythrocyte Sedimentation Rate 19 MM/HR (0-20)
[2024-05-26 12:32] LABS: Alanine Aminotransferase 38 U/L (0-31); Albumin Level 4.2 g/dL (3.5-5.0); Alkaline Phosphatase 88 U/L (39-117); Anion Gap 15 (12-20); Aspartate Amino Transferase 33 U/L (5-31); Bilirubin Total 0.3 mg/dL (0.0-1.0); Blood Urea Nitrogen 16 mg/dL (9-16); Calcium 9.2 mg/dL (8.4-10.2); Carbon Dioxide 25 mmol/L (22-29); Chloride 106 mmol/L (96-108); Estimated Glomerular Filt Rate > 60; Glucose Random 110 mg/dL (60-115); Potassium 4.5 mmol/L (3.3-5.1); Sodium 141 mmol/L (135-145); Total Protein 7.8 g/dL (6.5-8.0)
[2024-05-26 13:08] LABS: Creatinine Urine 174.83 mg/dL; Microalbum/Creatinine Ratio Ur 5.1 ug/mg cr (<30)
--- OUTSIDE RECORDS SUMMARY | 2024-05-27 19:29 | XMS_ITS | Clinical Summary ---
Author Organization Unknown Care Team Providers Care Union Organiser Name Role Phone KATHERIN VARGHESE, EDA Unavailable Unavailable TRU MACK, NANCY Unavailable Unavailable RUI MACK, JOSELYN Unavailable Unavailable Payers Payer Name Policy Type Policy Number Effective Date Expira tion Date MEDICAID [facility] [id number] Problems Condition Name Condition Details Condition Category [...] powder for inhalation 09-03 00:00: 00 Yes [id number] Per instruc tions EVERY DAY AT Per instructio ns EVERY DAY AT (route: inhalation ) Med Classific ation: Respirato ry Therapy Agents metformin 500 mg tablet 09-03 00:00: 00 Yes [id number] 1 tablet AT BEDTIME 1 tablet AT BEDTIME (route: oral) Med Classific ation: Endocrine Vitamins Plus Low Iron 27 mg iron-1 mg tablet 09-03 00:00: 00 Yes [id number] Per instruc tions EVERY DAY Per instructio ns EVERY DAY (route: oral) Med Classific ation: Electroly te Balance-N utritiona l Products Calmol-4 76 %-10 % rectal suppository 09-03 00:00: 00 Yes [id number] 1 supposi tory, rectal BEDTIME 1 suppositor y, rectal BEDTIME (route: rectal) Med Classific ation: Anorectal Preparati ons capsaicin 0.025 % topical cream 09-03 00:00: 00 Yes [id number] Per instruc tions 4 TIMES DAILY Per instructio ns 4 TIMES DAILY (route: topical) Med Classific ation: Dermatolo gical clonazepam 0.5 mg tablet 09-03 00:00: 00 Yes [id number] 1 tablet NOON 1 tablet NOON (route: oral) Med Classific ation: Central Nervous System Agents docusate sodium 100 mg capsule 09-03 00:00: 00 Yes [id number] 1 capsule 2 TIMES DAILY 1 capsule 2 TIMES DAILY (route: oral) Med Classific ation: Gastroint estinal Therapy Agents fluticasone propionate 110 mcg/actuati on HFA aerosol inhaler 09-03 00:00: 00 Yes [id number] 1 puff 2 TIMES DAILY 1 puff 2 TIMES DAILY (route: inhalation ) Med Classific ation: Respirato ry Therapy Agents hydroxyzine pamoate 25 mg capsule 09-03 00:00: 00 Yes [id number] 1 capsule 2 TIMES DAILY 1 capsule 2 TIMES DAILY (route: oral) Med Classific ation: Central Nervous System Agents omeprazole 20 mg capsule,del ayed release 09-03 00:00: 00 Yes [id number] 1 capsule 2 TIMES DAILY 1 capsule 2 TIMES DAILY (route: oral) Med Classific ation: Gastroint estinal Therapy Agents polyethylen e glycol 3350 17 gram/dose oral powder 09-03 00:00: 00 Yes [id number] 17 gram DAILY 17 gram DAILY (route: oral) Med Classific ation: Gastroint estinal Therapy Agents prazosin 1 mg capsule 09-03 00:00: 00 Yes [id number] 3 capsule EVERY AM 3 capsule EVERY AM (route: oral) Med Classific ation: Cardiovas cular Therapy Agents prazosin 2 mg capsule 09-03 00:00: 00 Yes [id number] 3 capsule BEDTIME 3 capsule BEDTIME (route: oral) Med Classific ation: Cardiovas cular Therapy Agents quetiapine 50 mg tablet 09-03 00:00: 00 Yes [id number] 1 tablet 3 TIMES DAILY 1 tablet 3 TIMES DAILY (route: oral) Med Classific ation: Central Nervous System Agents sertraline 50 mg tablet 09-03 00:00: 00 Yes [id number] 3 tablet EVERY AM 3 tablet EVERY AM (route: oral) Med Classific ation: Central Nervous System Agents sucralfate 1 gram tablet 09-03 00:00: 00 Yes [id number] 1 tablet 4 TIMES DAILY 1 tablet 4 TIMES DAILY (route: oral) Med Classific ation: Gastroint estinal Therapy Agents Ventolin HFA 90 mcg/actuati on aerosol inhaler 09-03 00:00: 00 Yes [id number] 1 puff EVERY 4 HOURS 1 puff EVERY 4 HOURS (route: inhalation ) Med Classific ation: Respirato ry Therapy Agents ziprasidone 20 mg capsule 09-03 00:00: 00 Yes [id number] 1 capsule 2 TIMES DAILY 1 capsule [...] AWARENESS FOR SAFETY AND WILL NOTIFY CLINICAL CARRIAGE RIDER AND PHYSICIAN/PROVIDER WITH ANY CHANGE IN CONDITION. [code = SKILLED NURSE WILL MAINTAIN SITUATIONAL AWARENESS FOR SAFETY AND WILL NOTIFY CLINICAL CARRIAGE RIDER AND PHYSICIAN/PROVIDER WITH ANY CHANGE IN CONDITION.] Goal 2023-10-30 Patient Goal - TO TAKE ME ME DS RIGHT Goal 2023-12-26 Patient Goal - TO TAKE ME ME DS RIGHT Goal Provider Goal - A PLAN OF CARE WILL BE ESTABLISHED THAT MEETS PATIENT'S CUSTODIAL NEEDS AND INCLUDES PATIENT GOAL FOR HOME [...] End Date/Time Encounter Type Admission Type Attending [facility] Care Department Encounter ID Discharge Date Discharge Status Discharge Condition Discharge Reason Percent Goals Met 2023-09-04 00:00:00 2023-12-26 00:00:00 Outpatient RECERTIFIC JOSELYN FORRESTER [facility] [id number] 2023-12-26 00:00:00 DISCHARGE TO HOME OR SELF CARE INDEPENDEN T IN THE HOME NON COMPLIANT WITH PLAN OF TREATMENT 25.93
--- OUTSIDE RECORDS SUMMARY | 2024-05-27 19:29 | XMS_ITS | Clinical Summary ---
Author Organization Unknown Care Team Providers Care Health Promotion Manager Name Role Phone KATHERIN VARGHESE, EDA Unavailable Unavailable TRU MACK, NANCY Unavailable Unavailable RUI MACK, JOSELYN Unavailable Unavailable Payers Payer Name Policy Type Policy Number Effective Date Expira tion Date MEDICAID [facility] [id number] Problems Condition Name Condition Details Condition Category [...] powder for inhalation 09-03 00:00: 00 Yes [id number] Per instruc tions EVERY DAY AT Per instructio ns EVERY DAY AT (route: inhalation ) Med Classific ation: Respirato ry Therapy Agents metformin 500 mg tablet 09-03 00:00: 00 Yes [id number] 1 tablet AT BEDTIME 1 tablet AT BEDTIME (route: oral) Med Classific ation: Endocrine Vitamins Plus Low Iron 27 mg iron-1 mg tablet 09-03 00:00: 00 Yes [id number] Per instruc tions EVERY DAY Per instructio ns EVERY DAY (route: oral) Med Classific ation: Electroly te Balance-N utritiona l Products Calmol-4 76 %-10 % rectal suppository 09-03 00:00: 00 Yes [id number] 1 supposi tory, rectal BEDTIME 1 suppositor y, rectal BEDTIME (route: rectal) Med Classific ation: Anorectal Preparati ons capsaicin 0.025 % topical cream 09-03 00:00: 00 Yes [id number] Per instruc tions 4 TIMES DAILY Per instructio ns 4 TIMES DAILY (route: topical) Med Classific ation: Dermatolo gical clonazepam 0.5 mg tablet 09-03 00:00: 00 Yes [id number] 1 tablet NOON 1 tablet NOON (route: oral) Med Classific ation: Central Nervous System Agents docusate sodium 100 mg capsule 09-03 00:00: 00 Yes [id number] 1 capsule 2 TIMES DAILY 1 capsule 2 TIMES DAILY (route: oral) Med Classific ation: Gastroint estinal Therapy Agents fluticasone propionate 110 mcg/actuati on HFA aerosol inhaler 09-03 00:00: 00 Yes [id number] 1 puff 2 TIMES DAILY 1 puff 2 TIMES DAILY (route: inhalation ) Med Classific ation: Respirato ry Therapy Agents hydroxyzine pamoate 25 mg capsule 09-03 00:00: 00 Yes [id number] 1 capsule 2 TIMES DAILY 1 capsule 2 TIMES DAILY (route: oral) Med Classific ation: Central Nervous System Agents omeprazole 20 mg capsule,del ayed release 09-03 00:00: 00 Yes [id number] 1 capsule 2 TIMES DAILY 1 capsule 2 TIMES DAILY (route: oral) Med Classific ation: Gastroint estinal Therapy Agents polyethylen e glycol 3350 17 gram/dose oral powder 09-03 00:00: 00 Yes [id number] 17 gram DAILY 17 gram DAILY (route: oral) Med Classific ation: Gastroint estinal Therapy Agents prazosin 1 mg capsule 09-03 00:00: 00 Yes [id number] 3 capsule EVERY AM 3 capsule EVERY AM (route: oral) Med Classific ation: Cardiovas cular Therapy Agents prazosin 2 mg capsule 09-03 00:00: 00 Yes [id number] 3 capsule BEDTIME 3 capsule BEDTIME (route: oral) Med Classific ation: Cardiovas cular Therapy Agents quetiapine 50 mg tablet 09-03 00:00: 00 Yes [id number] 1 tablet 3 TIMES DAILY 1 tablet 3 TIMES DAILY (route: oral) Med Classific ation: Central Nervous System Agents sertraline 50 mg tablet 09-03 00:00: 00 Yes [id number] 3 tablet EVERY AM 3 tablet EVERY AM (route: oral) Med Classific ation: Central Nervous System Agents sucralfate 1 gram tablet 09-03 00:00: 00 Yes [id number] 1 tablet 4 TIMES DAILY 1 tablet 4 TIMES DAILY (route: oral) Med Classific ation: Gastroint estinal Therapy Agents Ventolin HFA 90 mcg/actuati on aerosol inhaler 09-03 00:00: 00 Yes [id number] 1 puff EVERY 4 HOURS 1 puff EVERY 4 HOURS (route: inhalation ) Med Classific ation: Respirato ry Therapy Agents ziprasidone 20 mg capsule 09-03 00:00: 00 Yes [id number] 1 capsule 2 TIMES DAILY 1 capsule [...] AWARENESS FOR SAFETY AND WILL NOTIFY CLINICAL CNC MILLING MACHINIST AND PHYSICIAN/PROVIDER WITH ANY CHANGE IN CONDITION. [code = SKILLED NURSE WILL MAINTAIN SITUATIONAL AWARENESS FOR SAFETY AND WILL NOTIFY CLINICAL CNC MILLING MACHINIST AND PHYSICIAN/PROVIDER WITH ANY CHANGE IN CONDITION.] Goal 2023-10-30 Patient Goal - TO TAKE ME ME DS RIGHT Goal 2023-12-26 Patient Goal - TO TAKE ME ME DS RIGHT Goal Provider Goal - A PLAN OF CARE WILL BE ESTABLISHED THAT MEETS PATIENT'S JAIL NEEDS AND INCLUDES PATIENT GOAL FOR HOME [...] End Date/Time Encounter Type Admission Type Attending [facility] Care Department Encounter ID Discharge Date Discharge Status Discharge Condition Discharge Reason Percent Goals Met 2023-09-04 00:00:00 2023-12-26 00:00:00 Outpatient RECERTIFIC JOSELYN FORRESTER [facility] [id number] 2023-12-26 00:00:00 DISCHARGE TO HOME OR SELF CARE INDEPENDEN T IN THE HOME NON COMPLIANT WITH PLAN OF TREATMENT 25.93
== END 2024-05-26 09:30 | disposition home or self-care (01) ==
LOC: HO.HHCL 09:29
PROVIDERS: Visit Provider Internal Medicine Geriatric Medicine
DX: R79.89 Other specified abnormal findings of blood chemistry (principal)
CPT/HCPCS: 36415; 80053; 82043; 82570; 85025; 85652; 86431

== ENCOUNTER 2024-08-31 07:17 | Inpatient (IN) | payer OTHER, SELFPAY ==
--- NOTE | 2024-08-31 | ECG_ITS ---
Test Reason : r/o prolonged qt Blood Pressure : */* mmHG Vent. Rate : 106 BPM Atrial Rate : 106 BPM P-R Int : 118 ms QRS Dur : 76 ms QT Int : 326 ms P-R-T Axes : 54 71 41 degrees QTcB Int : 433 ms Sinus tachycardia Otherwise normal ECG When compared with ECG of 11-Nov-2023 10:44, Vent. rate has increased by 45 bpm Referred By: Catherine Vitale Electronically Signed By: Lavon Huynh
--- NOTE | ~2024-08-31 | CT_ITS ---
EXAMINATION: CT ABDOMEN AND PELVIS WITH CONTRAST CLINICAL INFORMATION: Abdominal pain. COMPARISON: August 23, 2023. TECHNIQUE: Multidetector volumetric images were obtained from the superior aspect of the liver through the pubic symphysis following administration 85 mL of Omnipaque 350 intravenous contrast. Sagittal and coronal reformatted images were obtained on the technologist's workstation. Oral contrast: No This CT examination was performed using dose optimization techniques as appropriate, variously including the following: *Automated exposure control *Adjustment of mA and/or kV according to patient size (this includes techniques or standardized protocols for targeted exams where dose is matched to indication/reason for exam; i.e. extremities or head) *Use of iterative reconstruction technique. DLP: 760 mGy centimeter. FINDINGS: LUNG BASES: 1 mm calcified pulmonary nodule, right lung base likely granuloma. LIVER, GALLBLADDER, AND BILIARY TREE: Liver measures 15 cm. Decreased enhancement pattern adjacent to the falciform ligament related to focal fatty infiltration. There is a less than 9 mm irregular hypodensity in the periphery of the right hepatic lobe. Portal veins, hepatic veins and intrahepatic portion of the IVC are patent. No intrahepatic biliary ductal dilatation. No pericholecystic fluid collection or gallbladder wall thickening. Common bile duct measures 3 mm. PANCREAS: No focal lesion. No peripancreatic fluid collection. No main pancreatic ductal dilatation. SPLEEN: 10 cm. No focal lesion. ADRENAL GLANDS: No nodular lesions. Mild soft tissue fullness, left adrenal gland. KIDNEYS AND URETERS: No hydronephrosis. No gross nephrolithiasis. No gross renal mass. Normal enhancement pattern of the renal parenchyma. BLADDER: Fluid-filled. GASTROINTESTINAL TRACT: Status post appendectomy. Nonspecific gas and fluid-filled mildly prominent distal small bowel loops. No intestinal obstruction pattern. No intestinal wall thickening. Collapsed appearance of the left hemicolon, splenic colonic flexure, and proximal transverse colon. No ascites. No pneumoperitoneum. No pneumatosis intestinalis.. ABDOMINAL WALL: There is metallic piercing in the umbilical's. Diastases in the periumbilical region. No gross hernia. LYMPH NODES: No lymphadenopathy, mesenteric or retroperitoneal. VASCULAR: No aneurysm or dissection. PELVIC VISCERA: No gross masses. OSSEOUS STRUCTURES: No acute fracture. Probable bony island in the posterior iliac bones, right acetabulum and greater trochanter right femur. Facet joint hypertrophy at L4-5 and L5-S1. Sclerosis and sacroiliac joints.. 1 mm retrolisthesis L4-5. CT/CT abdomen pelvis w IV con IMPRESSION: Consider mild enterocolitis in the correct clinical settings. Subcentimeter hypodensity right hepatic lobe. Spondylosis L4-5 and L5-S1. Fleischner guidelines were followed. Electronically signed by: Kali Loewry MD 08/31/2024 01:48 PM EDT
[2024-08-31 07:18] VITALS: BP 132/76; PULSE 115; RESP 20; TEMP 36.3; O2SAT 98; BMI 34.7
--- NOTE | 2024-08-31 07:39 | ED.PSYCH ---
HPI - Psych General Chief Complaint: Psychiatric Symptoms Stated Complaint: SI / vomiting Time Seen by Provider: 08/31/24 07:25 History of Present Illness HPI Narrative: Patient is a 38-year-old female presents today with having suicidal thoughts after using marijuana mixed with cocaine. Patient having some abdominal pain also had some nausea vomiting some diarrhea. Generalized malaise. Some mild coughing. Patient is also having some menstrual cramps. Patient attempted to cut herself. Also had thoughts about jumping off a bridge. Not taking any medications. Patient supposed to be on multiple meds. Came to the ED for help. Related Data Previous Rx's ?Medication ?Instructions ?Recorded albuterol sulfate 90 mcg/actuation 1 puff inhalation RQ4H PRN 11/22/23 aerosol inhaler (Ventolin HFA) Wheezing 30 days #1 inhaler capsaicin 0.025 % topical cream 1 appl topical QID PRN Pain, 11/22/23 Moderate(Pain Scale 4-6) 30 days #50 grams clonazepam 2 mg tablet (Klonopin) 2 mg PO .qweekly PRN 2 hours prior 11/22/23 to anxiety provoking event 1 month #5 tabs docusate sodium 100 mg capsule 100 mg PO BID 30 days #30 caps 11/22/23 fluticasone furoate 100 1 inh inhalation DAILY 30 days #1 11/22/23 mcg/actuation blister powder for ea inhalation (Arnuity Ellipta) fluticasone propionate 50 1 spray NOSTRIL-L BID 30 days #1 11/22/23 mcg/actuation nasal inhaler spray,suspension hydroxyzine HCl 25 mg tablet 75 mg (3 x 25 mg) PO BID PRN 11/22/23 anxiety 30 days #180 tabs lactulose 20 gram/30 mL oral 30 g (45 mL) PO TID 30 days #4,050 11/22/23 solution mL ehtwqrqf-twkrrbrnx-jwcoalbiq 3.5 4 drp otic (ear) left TID 7 days 11/22/23 mg/mL-10,000 unit/mL-1 % ear #10 mL solution nicotine (polacrilex) 2 mg gum 2 mg buccal Q2H PRN Nicotine 11/22/23 Cravings 30 days #90 ea nicotine 14 mg/24 hr daily 14 mg transdermal DAILY 28 days 11/22/23 transdermal patch #28 ea olanzapine 10 mg tablet 30 mg (3 x 10 mg) PO BEDTIME 30 11/22/23 days #90 tabs omeprazole 20 mg capsule,delayed 20 mg PO BID@0630,1630 30 days #30 11/22/23 release caps polyethylene glycol 3350 17 gram 17 g PO DAILY 30 days #30 ea 11/22/23 oral powder packet prazosin 1 mg capsule 6 mg PO BEDTIME 30 days #180 caps 11/22/23 quetiapine 100 mg tablet 100 mg PO BID PRN severe anxiety 11/22/23 30 days #60 tabs quetiapine 100 mg tablet 100 mg PO TID 30 days #90 tabs 11/22/23 sertraline 50 mg tablet 150 mg (3 x 50 mg) PO DAILY 30 11/22/23 days #90 tabs sucralfate 1 gram tablet 1 g PO QIDACHS 30 days #120 tabs 11/22/23 trazodone 100 mg tablet 250 mg (2.5 x 100 mg) PO BEDTIME 11/22/23 30 days #75 tabs white petrolatum-mineral oil 1 appl topical BID 30 days #454 11/22/23 topical cream (Dermacerin topical grams cream) Allergies Allergy/AdvReac Type Severity Reaction Status Date / Time almond Allergy Severe Anaphylaxis Verified 08/31/24 07:22 Penicillins Allergy Severe Anaphylaxis Verified 08/31/24 07:22 shrimp Allergy Severe Anaphylaxis Verified 08/31/24 07:22 peanuts Allergy Severe Anaphylaxis Uncoded 08/31/24 07:22 Review of Systems Review of Systems: Positive nausea vomiting diarrhea positive diffuse abdominal cramps Yes all other systems are reviewed and are negative [facility] Past Medical History Attestation statement: The following information was validated with the patient. Medical History Substance abuse Bipolar disorder Anxiety Depression Anxiety and depression Nausea & vomiting History of irregular heartbeat Acute posttraumatic stress disorder UTI (urinary tract infection) Asthma exacerbation Surgical History History of surgery Hx of section Social History Social History Household Members: Significant Other Household Members Other:: Every other week, partners 2 children come to stay with him Saturday- Saturday Housing: Apartment Do you presently have visiting nurse or other home services: No Alcohol intake: former Patient Tobacco Use Status: Former Tobacco user Tobacco use type: Smokeless Tobacco Cigarette Packs Per Day: 0.5 Cigarettes Per Day: 10.0 Years Smoked: 23 Smoked in Last 30 Days: No e-Cigarette/Vaping Use: Currently Using Second Hand Smoke Exposure: Yes Use of substances other than those prescribed or required for medical reasons: No Substance Use Type: Crack/Cocaine and Marijuana Advance Directives: No Advance Directives Information Provided: Yes Patient : No service: No Sexual orientation: Straight/Heterosexual Physical Exam Vital Signs: Vital Signs: Last Vital Signs Temp 96.8 F 08/31/24 09:50 Pulse 82 08/31/24 12:22 Resp 18 08/31/24 12:22 BP 110/62 08/31/24 12:22 Pulse Ox 96 08/31/24 12:22 O2 Del Method Room Air 08/31/24 09:50 BMI result Body Mass Index 34.7 Appearance: Alert. Oriented X3. No acute distress. Eyes: Pupils equal, round and reactive to light. ENT: Pharynx normal. Neck: Normal inspection. Neck supple. No lymph nodes noted. No crepitus CVS: Normal heart rate and rhythm. Pulses normal. Normal S1 and S2 Respiratory: No respiratory distress. Breath sounds normal. No Wheezing. No rales Abdomen: Soft and nontender. No rigidity. No distention. good BS x4 Skin: Skin warm and dry. Normal skin color. Normal skin turgor. Extremities: No lower extremity edema. Neurovascular intact to all extremities. No Lacerations. No Rash Neuro: Oriented X 3. No motor deficit. No sensory deficit. Moving all extermities. No slurred speech. Cranial nerves grossly intact Medications Administered Discontinued Medications Generic Name Dose Route Start Last Admin Trade Name Freq PRN Reason Stop Dose Admin Sodium Chloride 1,000 mls @ 999 mls/hr 08/31/24 07:45 08/31/24 09:58 Ns IV 08/31/24 08:45 Infused .Q1H1M SERENA Infusion Sodium Chloride 1,000 mls @ 999 mls/hr 08/31/24 07:45 08/31/24 09:58 Ns IV 08/31/24 08:45 Infused .Q1H1M SERENA Infusion Iohexol 100 ml 08/31/24 13:24 08/31/24 13:24 Iohexol 350 Mg/Ml 100 Ml Infus..Btl IV 08/31/24 13:25 85 ml ONCE ONE Administration Ketorolac Tromethamine 15 mg 08/31/24 09:09 08/31/24 09:33 Ketorolac Tromethamine 15 Mg/Ml Vial IVPUSH 08/31/24 09:10 15 mg ONCE ONE Administration Ondansetron HCl 4 mg 08/31/24 08:08 08/31/24 08:11 Ondansetron Hcl 4 Mg/2 Ml Vial IVPUSH 08/31/24 08:09 4 mg ONCE ONE Administration Trimethoprim/Sulfamethoxazole 1 tab 08/31/24 12:04 08/31/24 12:20 Sulfamethox/Trimeth 800/160 Tablet PO 08/31/24 12:05 1 tab ONCE ONE Administration Medical Decision Making Medical Decision Making [facility] Narrative: patient presents today with having abdominal pain not feeling well. The abdominal pain happened after using marijuana mixed with cocaine. Patient is CT scan of the abdomen showed some possible mild colitis. There is no evidence for obstruction abscess perforation patient's urine showed no signs of infection test was negative no evidence for related issues. Has suicidal thoughts will get crisis evaluate patient pain more likely related to menstruation. Areas a very questionable urinary tract infection a dose of antibiotic was given. Will prescribe a 3 day course with Bactrim. Close follow-up on an outpatient basis. Currently awaiting final crisis evaluation as patient had suicidal thoughts thoughts of cutting CT scan of the abdomen pelvis showed no acute evidence of obstruction abscess perforation. A small cyst was noted in the liver. Will need follow-up on an outpatient basis. Urine showed no signs of infection. Differential Diagnosis Differential Diagnoses: The differential diagnosis associated with the presentation includes anxiety depression suicidal ideation urinary tract infection obstruction abscess Admission/Observation Consideration of admission/observation: Escalation of care including admission/observation considered Consult Healthcare Provider Management of the patient was discussed with: Pelt Inspector ( care team c) Lab Data [facility] Lab Attestation statement: I reviewed the patient's lab results. 08/31/24 07:58 08/31/24 07:57 Labs: Lab Results 08/31/24 08/31/24 Range/Units 07:57 07:58 WBC 12.8 H (4.8-10.8) X10*3/uL RBC 5.32 (4.20-5.50) X10*6/uL Hgb 12.2 (12.0-16.0) g/dl Hct 37.8 (37.0-47.0) % MCV 71.1 L (80.0-98.0) fL MCH 22.9 L (27.0-33.0) pg MCHC 32.3 (31.0-35.0) g/dl RDW 15.3 (11.0-16.0) % Plt Count 434 H (160-400) X10*3/uL MPV 9.6 (9.4-12.3) fL Immature Gran % (Auto) 0.4 (0.0-0.4) % Neut % (Auto) 81.2 H (45-73) % Lymph % (Auto) 14.0 L (20-40) % [place] % (Auto) 3.9 (2-11) % Eos % (Auto) 0.2 (0-4) % Baso % (Auto) 0.3 (0-2) % Lymph # (Auto) 1.8 (1.2-4.9) X10*3/uL [place] # (Auto) 0.5 (0.1-1.2) X10*3/uL Eos # (Auto) 0.0 (0.0-0.4) X10*3/uL Baso # (Auto) 0.0 (0.0-0.2) X10*3/uL Abs Immat Gran (auto) 0.05 H (0.00-0.03) X10*3/uL Absolute Neuts (auto) 10.4 H (2.0-8.3) x10*3/uL Absolute Nucleated RBC 0.000 (0.0-0.012) X10*3/uL Nucleated RBC % (auto) 0.0 (0.0-0.2) /100WBC Sodium 141 (135-145) mmol/L Potassium 3.6 (3.3-5.1) mmol/L Chloride 108 (96-108) mmol/L Carbon Dioxide 20 L (22-29) mmol/L Anion Gap 17 (12-20) BUN 19 H (9-16) mg/dL Creatinine 0.90 (0.5-1.4) mg/dL Estim Creat Clear Calc 100.7 Estimated GFR > 60 Random Glucose 131 H (60-115) mg/dL Calcium 9.3 (8.4-10.2) mg/dL Total Bilirubin 0.8 (0.0-1.0) mg/dL AST 29 (5-31) U/L ALT 32 H (0-31) U/L Alkaline Phosphatase 97 (39-117) U/L Total Protein 9.4 H (6.5-8.0) g/dL Albumin 4.4 (3.5-5.0) g/dL Urine Color [place] A Urine Appearance Turbid Urine pH 6.0 (5.0-9.0) Ur Specific [place] >= 1.030 H (1.005-1.025) Urine Protein 100 (2+) H (Neg-Trace) mg/dL Urine Glucose (UA) Negative (Negative) mg/dL Urine Ketones Negative (Negative) mg/dL Urine Blood Large (3+) H (Negative) Urine Nitrite Negative (Negative) Ur Leukocyte Esterase Small (1+) H (Negative) Urine RBC >20 H (0-2) /HPF Urine WBC 6-10 H (0-5) /HPF Ur Squamous Epith Cells 11-20 (0-2) /HPF Urine Bacteria 4+ (None Seen) Hyaline Casts 0-2 (0-2) /LPF Urine Test NEGATIVE (NEGATIVE) Salicylates < 5.0 L (15-30) mg/dL Urine Opiates Screen Not Detected (Not Detect) Ur Buprenorphine Scrn Not Detected (Not Detect) ng/mL Ur Oxycodone Screen Not Detected (Not Detect) ng/mL Urine Methadone Screen Not Detected (Not Detect) ng/mL Urine Fentanyl Screen Not Detected (Not Detect) Acetaminophen < 3 (<30) mcg/mL Ur Barbiturates Screen Not Detected (Not Detect) Ur Phencyclidine Scrn Not Detected (Not Detect) Ur Amphetamines Screen Not Detected (Not Detect) U Benzodiazepines Scrn Not Detected (Not Detect) Urine Cocaine Screen POSITIVE H (Not Detect) U Marijuana (THC) Screen POSITIVE H (Not Detect) Influenza Type A (PCR) NEGATIVE (Negative) Influenza Type B (PCR) NEGATIVE (Negative) RSV RNA Qual (PCR) NEGATIVE (Negative) SARS-CoV-2 RNA (RT-PCR) NEGATIVE (Negative) Radiology Impression Discussion of test interpretation with radiology: I have reviewed the radiologist's reading. Radiologist Impression: Consider mild enterocolitis in the correct clinical settings. Subcentimeter hypodensity right hepatic lobe. Spondylosis L4-5 and L5-S1. Discharge Plan Discharge Clinical Impression: Hepatic cyst, Suicidal ideation, Urinary tract infection Patient Disposition: Still a Patient Interventions: [place]-Suicide Risk Severity Scale Last Done: 08/31/24 12:23
[2024-08-31 08:05] LABS: MANUAL DIFF FLAG NO
[2024-08-31 08:06] LABS: Basophils Percent Auto 0.3 % (0-2); Eosinophils Percent Auto 0.2 % (0-4); Hematocrit 37.8 % (37.0-47.0); Hemoglobin 12.2 g/dl (12.0-16.0); Imm Gran Abs Auto 0.05 X10*3/uL (0.00-0.03); Imm Gran Pct Auto 0.4 % (0.0-0.4); Lymphocytes Absolute Auto 1.8 X10*3/uL (1.2-4.9); Mean Corpuscular HGB Conc 32.3 g/dl (31.0-35.0); Mean Corpuscular Hemoglobin 22.9 pg (27.0-33.0); Mean Corpuscular Volume 71.1 fL (80.0-98.0); Mean Platelet Volume 9.6 fL (9.4-12.3); Monocytes Absolute Auto 0.5 X10*3/uL (0.1-1.2); Monocytes Percent Auto 3.9 % (2-11); Neutrophils Absolute Auto 10.4 x10*3/uL (2.0-8.3); Neutrophils Percent Auto 81.2 % (45-73); Platelet Count 434 X10*3/uL (160-400); Red Blood Count 5.32 X10*6/uL (4.20-5.50); Red Cell Distribution Width 15.3 % (11.0-16.0); White Blood Count 12.8 X10*3/uL (4.8-10.8)
[2024-08-31] MEDS: 0.9 % Sodium Chloride 1,000 ML 999 ML IV ×2 (08:06)
[2024-08-31 08:09] VITALS: BP 116/72; PULSE 99; RESP 18; TEMP 36.7; O2SAT 95
[2024-08-31] MEDS: ondansetron HCL 4 MG/2 ML VIAL IVPUSH (08:11)
[2024-08-31 08:12] LABS: Appearance Urine Turbid; Color Urine Orange; Glucose Urine UA Negative (Negative); Leukocyte Esterase Urine Small (1+) (Negative); Nitrite Urine Negative (Negative); Specific Gravity - Urine >= 1.030 (1.005-1.025); UMIC TRIGGER UACC YES; Urine Blood Large (3+) (Negative); Urine Ketones Negative (Negative); Urine Protein 100 (2+) mg/dL (Neg-Trace)
[2024-08-31 08:17] LABS: Bacteria Urine 4+ (None Seen); Hyaline Casts Urine 0-2 /LPF (0-2); RBC Urine >20 /HPF (0-2); UACC Culture Trigger YES
[2024-08-31 08:20] LABS: Alanine Aminotransferase 32 U/L (0-31); Albumin Level 4.4 g/dL (3.5-5.0); Alkaline Phosphatase 97 U/L (39-117); Anion Gap 17 (12-20); Aspartate Amino Transferase 29 U/L (5-31); Bilirubin Total 0.8 mg/dL (0.0-1.0); Blood Urea Nitrogen 19 mg/dL (9-16); Calcium 9.3 mg/dL (8.4-10.2); Carbon Dioxide 20 mmol/L (22-29); Chloride 108 mmol/L (96-108); Creatinine Clr Calc Pharmacy 100.7; Estimated Glomerular Filt Rate > 60; Glucose Random 131 mg/dL (60-115); Potassium 3.6 mmol/L (3.3-5.1); Sodium 141 mmol/L (135-145); Total Protein 9.4 g/dL (6.5-8.0)
[2024-08-31 08:21] LABS: Acetaminophen LAB < 3 mcg/mL (<30); Salicylate < 5.0 mg/dL (15-30)
[2024-08-31 08:22] LABS: Amphetamine Screen Urine Not Detected (Not Detect); Barbiturates, Urine Not Detected (Not Detect); Benzodiazepines Screen Urine Not Detected (Not Detect); Buprenorphine Scr Not Detected (Not Detect); Cannabinoid Screen Urine POSITIVE (Not Detect); Cocaine Screen Urine POSITIVE (Not Detect); Fentanyl, urine Not Detected (Not Detect); Methadone Screen, Urine Not Detected (Not Detect); Opiate Screen Urine Not Detected (Not Detect); Oxycodone Screen Urine Not Detected (Not Detect); Phencyclidine Screen Urine Not Detected (Not Detect)
--- OUTSIDE RECORDS SUMMARY | 2024-08-31 08:30 | XMS_ITS ---
Author Organization [facility] Address [address] [place] [address] Care Team Providers Care Waterproofer Helper Name Role Phone CAROLYN KAUR M.D. Primary Care Provider Arnulfo Draper Jr [phone] REASON FOR VISIT epigastric pain Problems Problem Type SNOMED Code ICD Code Onset Dates Problem Status W/U Status Risk Notes Problem Gastroesophageal reflux disease (888499856) Gastroesophageal reflux disease (K21.9) Active confirmed Encounters Encounter Location Date Provider Diagnosis [facility] Out[address], [place] [id number] 10/30/2023 Arnulfo Amezquita Jr Abdominal pain, epigastric R10.13 and Gastroesophageal reflux disease K21.9 Assessments Encounter Date Diagnosis (ICD Code) Assessment Notes Treatment Notes Treatment Clinical Notes Section Notes 10/30/2023 Abdominal pain, epigastric (ICD-10 - R10.13) 10/30/2023 Gastroesophageal reflux disease (ICD-10 - K21.9) Plan Of Treatment No Information Progress Notes * AXEL RYAN MARYENDOB:01/1986 (38 yo F)Acc No.[id number]:10/30/2023 EGD/MAC Patient:?AXEL RYANMARY HAL Provider:?Arnulfo Amezquita MD :1985???Age:38 Y???Sex:Female D ate:10/30/2023 Address:[address] [facility] [facility], [id number] Pcp:CAROLYN KAUR M.D. Subjective: * Chief Complaints: * ???1. Epigastric pain. * Medical History:? Objective: * Vitals:? Assessment: * Assessment: 1.?Abdominal pain, epigastri c - R10.13 (Primary)???2.?Gastroesophageal reflux disease - K21.9??? Plan: * Treatment: * Procedure Codes:?58998 UPPER GI ENDOSCOPY, BIOPSY * * The named appointment provid er may or may not be the originator of this progress note, and it is not deemed complete until electronically signed by the appointment provider. Sign off status: Pending * Provider:?Arnulfo Amezquita MD Date:?0 10/30/2023 Generated for Denita vela/Alec/Debbi on:?08/31/2024 08:30 AM EDT
--- OUTSIDE RECORDS SUMMARY | 2024-08-31 08:30 | XMS_ITS | Clinical Summary ---
Author Organization [employer] Address [address] [place] [address] [address] [place] [address] Care Team Providers Care Shear Assembler Name Role Phone Adrianne Becerril MD Primary Care Provider [phone] Allergies Active Allergy Reactions Criticality Noted Date Comments Parlin (Diagnostic) Unknown 06/12/2024 Parlin Oil 07/05/2022 Penicillin G 09/13/2021 Penicillins 07/05/2022 Flavoring Agent (Non-Screening) 09/2022 Medications * This document contains information received from the source organization and may not represent a complete record from that organization. Vit-Fe Fumarate-FA ( Plus) 27-1 MG tablet One tablet by mouth daily 30 tablet 11 3 Active docusate sodium (Colace) 100 MG capsule Take 1 capsule by mouth 2 times daily. 4 Active omeprazole (PriLOSEC) [address] capsule TAKE 1 CAPSULE BY MOUTH TWICE DAILY AT 630 am AND 430 pm 4 Active polyethylene glycol, PEG, 3350 (Glycolax) 17 GM/SCOOP powder TAKE 17 GM MIXED IN 8 OUNCES OF WATER, COFFEE OR TEA ONCE DAILY 4 Active metFORMIN (Glucophage) 500 MG tablet Take 1 tablet by mouth at bedtime. 4 Active hydrOXYzine pamoate (Vistaril) 25 MG capsule Take 1 capsule by mouth if needed in the morning and at bedtime for anxiety. Active OLANZapine (ZyPREXA) 10 MG tablet Take 2 tablets by mouth at bedtime. Active sertraline (Zoloft) 50 MG tablet Take 3 tablets by mouth Once daily. Active prazosin (Minipress) 2 MG capsule Take 3 capsules by mouth at bedtime. Active ziprasidone (Geodon) 20 MG capsule Take 1 capsule by mouth if needed in the morning and at bedtime (agitation or anxiety). 4 Active traZODone (Desyrel) 100 MG tablet Take 2.5 tablets by mouth at bedtime. Active capsaicin (Zostrix) 0.025 % cream Apply 1 gram to affected area four times a day as needed for back pain Active prazosin (Minipress) 1 MG capsuleIndication s:Panic disorder TAKE 3 CAPSULES BY MOUTH EVERY MORNING 90 capsule 4 Active EPINEPHrine (Epipen) 0.3 MG/0.3ML injection syringe Inject 0.3 mL (0.3 mg) as directed 1 (one) time if needed for anaphylaxis. Inject into upper leg. Call 911 after use. 2 each 1 4 Active albuterol (Ventolin HFA) 108 (90 Base) MCG/ACT inhalerIndication s:Mild persistent asthma with acute exacerbation Inhale 2 puffs by mouth every 4 to 6 hours as needed 18 g 4 Active Arnuity Ellipta 100 MCG/ACT inhaler Inhale 1 puff Once per day. 1 each 4 Active Spacer/Aero-Holdi ng Chambers (OptiChamber Clara) misc 1 each every 4 (four) hours if needed (asthma). 1 each 4 Active Diclofenac Sodium (Voltaren) 1 % gelIndications:Bi lateral hand swelling Apply thin layer twice a day to both hands 50 g 1 4 Active fluticasone (Flonase) 50 MCG/ACT nasal spray Administer 1 spray into each nostril 2 times daily. 4 Active hydrOXYzine HCl (Atarax) 25 MG tabletIndications :Severe episode of recurrent major depressive disorder, with psychotic features (CMS/HCC) TAKE 3 TABLETS BY MOUTH TWICE DAILY NEEDED FOR ANXIETY 4 Active lactulose (Chronulac) 10 GM/15ML solution TAKE 45 ML BY MOUTH THREE TIMES DAILY FOR 30 DAYS 4 Active nicotine (Nicoderm, Step 2) 14 MG/24HR patchIndications: Smoking APPLY 1 PATCH TOPICALLY TO THE SKIN IN THE MORNING DO NOT SMOKE WHILE USING PATCH 4 Active nicotine polacrilex (Nicorette) 2 MG gumIndications:Sm oking CHEW 1 PIECE OF GUM DIRECTED EVERY 2 HOURS NEEDED FOR SMOKING CESSATION 4 Active ondansetron (Zofran) 4 MG tabletIndications :Epigastric pain take 1 tablet by mouth every 8 hours as needed for nausea and vomiting 4 Active QUEtiapine (SEROquel) 100 MG tabletIndications :Severe episode of recurrent major depressive disorder, with psychotic features (CMS/HCC) TAKE 1 TABLET BY MOUTH THREE TIMES DAILY FOR ANXIETY AND VOICES 4 Active QUEtiapine Fumarate 150 MG tabletIndications :Severe episode of recurrent major depressive disorder, with psychotic features (CMS/HCC) TAKE 1 TABLET BY MOUTH EVERY DAY AT NIGHT AT BEDTIME NEEDED FOR SLEEP 4 Active Skin Protectants, Misc. (Minerin Creme) cream apply to the affected area(s) twice daily 4 Active sucralfate (Carafate) 1 g tabletIndications :Epigastric pain TAKE 1 TABLET BY MOUTH FOUR TIMES DAILY BEFORE MEALS AND AT BEDTIME 4 Active hydrOXYzine pamoate (Vistaril) 100 MG capsuleIndication s:DAVE (generalized anxiety disorder) TAKE 1 CAPSULE BY MOUTH TWICE DAILY NEEDED FOR ANXIETY 4 Active sertraline (Zoloft) 100 MG tabletIndications :Severe episode of recurrent major depressive disorder, with psychotic features (CMS/HCC) TAKE 2 AND 1/2 TABLETS BY MOUTH EVERY DAY (FOR MOOD) 4 Active clonazePAM (KlonoPIN) 2 MG tabletIndications :DAVE (generalized anxiety disorder) Take 1 tablet (2 mg) by mouth if needed each day for anxiety. 6 tablet 4 Active benztropine (Cogentin) 0.5 MG tabletIndications :Severe episode of recurrent major depressive disorder, with psychotic features (CMS/HCC) TAKE 1 TABLET BY MOUTH TWICE DAILY 180 tablet 3 5 Active Active Problems Problem Noted Date Diagnosed Date Epigastric pain 06/12/2024 PTSD (post-traumatic stress disorder) 04/02/2024 Mild persistent asthma without complication 03/17 Severe episode of recurrent major depressive disorder, with psychotic features 04/12/2023 Assessment & Plan (11/28/2023 7:35 PM EDT): -advised continuation of prescribed psych medication -advised follow-up with psych provider and therapist -advised to reach out to crisis with increased depression/ SI -reminded of upcoming appointment with PCP Assessment & Plan (07/24/2023 8:26 AM EST): Continue with current services. Connected to [facility] for therapy and psychiatry Recommendation of crisis evaluation- patient declined- provided [facility] information and highly encouraged to utilize if needed Will complete Partial Hospitalization program- ends 07/26/2023 May reach out to [facility] team if needed [facility]'s contact information provided Presents with depressed mood, loss of interests/pleasure , changes in sleep difficulty falling asleep and difficulty staying asleep , change in appetite or weight reduce appetite, trouble concentrating, thoughts of worthlessness or guilt, thoughts about or suicide, fatigue/loss of energy, SI w/ structured plan for suicide via hanging self with rope, irritability, mood swings, lack of motivation, hallucinations, excessive worry/anxiety, difficulty controlling worry, restless/keyed up/On edge, easily fatigued, difficulty concentrating/Mind going blank , irritability, muscle tension, and sleep disturbance difficulty falling asleep, difficulty staying asleep , and restless, unsatisfying sleep, Flashbacks, Intrusive trauma memories and thoughts, Nightmares/night terrors, Hypervigilance, Avoidance of trauma reminders/triggers, Increased startle response, Fear and distrust in relationships, Hypo-vigilance, Isolation from normal social supports, Withdrawn, and Difficulty with crowds, and palpitations, sweating, trembling/shaking, sensation of shortness of breath/smothering, Chest pain/discomfort, nausea/abdominal distress for a period of 18+ mo in context of family issues, employment concern, and children residing in other family member's custody Assessment & Plan (04/15/2023 8:21 AM EDT): Kymberly reports experiencing panic attacks. She reports feeling chest pain, paresthesias, palpitations, and shaking. She also reports anhedonia, feeling depressed, sleep disturbances trouble falling asleep, feeling tired, poor appetite sometimes overeating, guilt, trouble concentrating, moving and speaking slowly, and passive SI, no plan, feeling anxious, not able to control worry, worrying about different things, trouble relaxing, restlessness irritability, and fearfulness. Kymberly also reports about 1 month onset of seeing shadows walking by her. Kymberly agrees to follow up with me next week during [facility] visit, use coping skills including those practiced today, contact [facility] or go in person to reengage in services. I provided Kymberly with my information, in case she needs additional support. Panic disorder 04/12/2023 Assessment & Plan (11/28/2023 7:28 PM EDT): -medication refill provided per patient request DAVE (generalized anxiety disorder) 04/12/2023 Nausea and vomiting 07/05/2022 Cysts of both ovaries 07/05/2022 Encounters Date Type Department Care Team Description 08/31/2024 Orders Only GENERIC EXTERNAL DATA DEPARTMENT Provider, Generic External Data 08/28/2024 Population Health Risk Score [facility] ([facility]) Department [address] [id number] Provider, Population Health Generic 08/21/2024 Telephone [facility] [address] [place] [address] Adrianne Becerril MD No Show 07/29/2024 3:30 PM EST Office Visit [facility] [address] [place], [place] [phone] Tarka, Josefa, OD Hypermetropia, bilateral (Primary Dx); Dry eyes, bilateral 07/29/2024 Travel 07/27/2024 Telephone [facility] [address] [place] [phone] Kamila Perez RN 07/24/2024 Telephone [facility] [address] [place] [address] Mercy Coornel MA Results 07/12/2024 Refill [facility] [address] [place] [address] Roxanne Lee FNP Severe episode of recurrent major depressive disorder, with psychotic features (CMS/HCC) 07/02/2024 Telephone [facility] [address] [place] [phone] Kymberly Hartmann RN 06/12/2024 1:45 PM EST Office Visit [facility] [address] [place] [phone] Adrianne Becerril MD Severe episode of recurrent major depressive disorder, with psychotic features (CMS/HCC) (Primary Dx); Class 1 obesity without serious comorbidity with body mass index (BMI) of 34.0 to 34.9 in adult, unspecified obesity type; Strep throat; DAVE (generalized anxiety disorder); Epigastric pain; Smoking; Blurry vision, bilateral 06/12/2024 Travel 06/03/2024 Patient Outreach [facility] [address] [place] [phone] Adrianne Becerril MD Pre-visit Planning ([facility] screening completed on 07/19/2023) from Last 3 Months Immunizations Name Administration Dates Next Due Influenza injectable quadrivalent preservative f ree 06/25/2023 Influenza, IIV3, injectable 08/06/2023 Moderna Covid-19 Vaccine 12+ 11/11/2020,10/14/19 21 Family History Medical History Relation Name Comments Cancer Father's Sister Heart disease Maternal Grandmother Asthma Mother due to asthma attack Cancer Paternal Grandmother Heart disease Paternal Grandmother Relation Name Status Comments Father's Sister Maternal Grandmother Mother Paternal Grandmother Social History Tobacco Use Types Packs/Day Years Used Date Smoking Tobacco: Former Smokeless Tobacco: Never Tobacco Cessation:Counseling Given: Not Answered Alcohol Use Standard Drinks/Week Comments Not Currently 0 (1 standard drink = 0.6 oz pur e alcohol) Depression Answer Date Recorded Patient Health Questionnaire-9 Score 25 07/23/2023 Patient Health Questionnaire-9 Score 25 07/23/2023 Last PHQ-9: Questionnaire Data Not on file 0 07/23/2023 Housing Stability Answer Date Recorded What is your housing situation today? I have [facility] 04/09/[address] you li ve. Do you have problems with any of the following? None of the above 04/09/2023 Food Insecurity Answer Date Recorded Within the past 12 months, y ou worried that your food would run out before you got money to buy more: Sometimes True 2023 Within the past 12 months,th e food you bought just didn't last and you didn't have enough money to get more: Sometimes True 07/19/2023 Transportation Answer Date Recorded In the past 12 months, has l ack of transportation kept you from medical appts, meetings, work or from getting things needed for daily living? No 04/09/2023 Utilities Answer Date Recorded In the past 12 months, has t he electric, gas, oil or water company threatened to shut off services in your home? No 04/09/2023 Depression Answer Date Recorded Patient Health Questionnaire-2 Score 6 07/23/2023 Comments No Sex and Gender Information Value Date Recorded Sex Assigned at Female 04/16/2022 10:40 AM EDT Legal Sex Female 10:40 AM EDT Gender Identity Female 04/16/2022 10:40 AM EDT Sexual Orientation Straight 04/16/2022 10 :40 AM EDT Last Filed Vital Signs Vital Sign Reading Time Taken Comments Blood Pressure 118/60 06/12/2024 2:02 PM EST Pulse 88 06/12/2024 2:02 PM EST Temperature 36.6 ??C (97.8 ??F) 06/12/2024 2:02 PM ES T Respiratory Rate 17 06/12/2024 2:02 PM EST Oxygen Saturation 97% 05/26/2024 8:49 AM EST Inhaled Oxygen Concentration - - Weight 106 kg (233 lb) 06/12/2024 2:02 PM EST Height 175.3 cm (5' 9 ) 06/12/2024 2:02 PM EST Body Mass Index 34.41 06/12/2024 2:02 PM EST Plan of Treatment Health Maintenance Due Date Last Done Comments Family Planning (PISQ) 2001 DTaP/Tdap/Td Vaccines (1 - Tdap) 2005 Hepatitis B Vaccines (1 of 3 - 19+ 3-dose series) 2005 Pneumococcal Vaccine: Pediatrics (0 to 5 Years) and At-Risk Patients (6 to 49) Years) (1 of 2 - PCV) 2005 Depression Monitoring (PHQ-9) 01/21/2024, 07/23/2023 COVID-19 Vaccine (4 - 2023-2 5 season) 2024 08/29/2021, 11/11/2020, 10/13/2020 Influenza Vaccine (#1) 2024 , 06/25/2023 SDOH Screening 07/19/2024 07/19/2023 Depression Screening 07/23/2024 07/23/2023, 07/23/2023 Pap Smear 09/11/2024 09/11/2021 Alcohol/Substance Use Screening 06/12/2025 06/12/2024 Diabetes: Hemoglobin A1C 06/26/2025 025, 09/05/2021 Tobacco Screening 07/29/2025 07/29/2024 Cervical Cancer Screening 09/11/2026 HPV/Cotest 09/11/2026 09/11/2021 Lipid Panel 07/27/2027 07/27/2022, 09/05/2021 Zoster Vaccines (1 of 2) 2036 RSV Patients and Patients Aged 60 years or older (1 - 1-dose 75+ series) 2061 Hepatitis C Screening Completed 09/05/2021 HIV Screening Completed 07/27/2022, 09/05/2021 HIB Vaccines Aged Out No longer eligi ble based on patient's age to complete this topic HPV Vaccines Aged Out No longer eligi ble based on patient's age to complete this topic Hepatitis A Vaccines Aged Out No long er eligible based on patient's age to complete this topic IPV Vaccines Aged Out No longer eligi ble based on patient's age to complete this topic Meningococcal Vaccine Aged Out No shannan abad eligible based on patient's age to complete this topic RSV under 20 months Aged Out No longe r eligible based on patient's age to complete this topic Rotavirus Vaccines Aged Out No longer eligible based on patient's age to complete this topic Procedures Procedure Name Priority Date/Time Associated Diagnosis Comments DRUG MONITOR, PANEL 1, SCREEN, URINE Routine 08/31/2024 7:58 AM EDT ACETAMINOPHEN LEVEL Routine 08/31/2024 7 :58 AM EDT SALICYLATE Routine 08/31/2024 7:58 AM EDT URINALYSIS, COMPLETE, WITH REFLEX TO CULTURE Routine 08/31/2024 7:58 AM EDT CBC WITH AUTO DIFFERENTIAL Routine 08/31/2024 7:58 AM EDT COMPREHENSIVE METABOLIC PANEL Routine 08/31/2024 7:57 AM EDT TSH W/REFLEX TO FT4 Routine 06/26/2024 1 2:44 PM EST Class 1 obesity without serious comorbidity with body mass index (BMI) of 34.0 to 34.9 in adult, unspecified obesity type HEMOGLOBIN A1C Routine 06/26/2024 12:44 PM EST Class 1 obesity without serious comorbidity with body mass index (BMI) of 34.0 to 34.9 in adult, unspecified obesity type HIV 1 RNA, QN PCR W/RFL ALBARO (RTI,PI,INTEGRASE) Routine 07/27/2022 12:01 PM EST Routine screening for STI (sexually transmitted infection) LIPID PANEL, STANDARD Routine 07/27/2022 12:01 PM EST Routine health maintenance THINPREP IMAGING PAP AND HPV MRNA E6/E7 WITH REFLEX TO HPV 16,18/45 Routine 09/11/2021 9:58 AM EDT ZZZ HISTORICAL HEPATITIS C AB W/REFL TO HCV RNA, QN, PCR Routine 09/05/2021 2:03 PM EDT from Last 3 Months or Most Recently Relevant to Health Maintenance Results * (ABNORMAL) Urinalysis, Complete, with Reflex to Culture (08/31/2024 7:58 AM EDT) Color Urine [place](A) [facility] Appearance Urine Turbid [facility] PH 6.0 5.0 - 9.0 [facility] Glucose Urine UA Negative Negative mg/dL [facility] Urine Blood Large (3+)(A) Negative [facility] Specific Oolitic - Urine >=1.030(H) 1.005 - 1.025 [facility] Urine Protein 100 (2+)(A) Neg-Trace mg/dL [facility] Urine Ketones Negative Negative mg/dL [facility] Nitrite Urine Negative Negative [facility] Leukocyte Esterase Urine Small (1+)(A) Negative [facility] RBC Urine >20(A) 0 - 2 /HPF [facility] Urine WBC 6-10(A) 0 - 5 /HPF [facility] Urine Squamous Epithelial Cell 11-20 0 - 2 /HPF [facility] Urine Bacteria 4+ None Seen [facility] Hyaline Casts, Urine 0-2 0 - 2 /LPF [facility] 08/31/2024 7:58 AM EDT 08/31/2024 8:02 AM EDT Narrative [facility] - 08/31/2024 8:19 AM EDT [id number], Clean Catch us Generic External Data Provider LAB URINE ORDERAB LES Final Result [facility] [address] [place] [phone] * (ABNORMAL) Drug Monitoring, Panel 1, Screen, Urine (08/31/2024 7:58 AM EDT) Opiate Screen Urine Not Detected Not Detect [facility] Comment:Opiate cut-off is 30 0 ng/mL.Positive results are unconfirmed and should not be used fornon-medical purposes. Barbiturates, Urine Not Detected Not Detect [facility] Comment:Barbiturate cut-off is 200 ng/mL.Positive results are unconfirmed and should not be used fornon-medical purposes. Phencyclidine Screen Urine Not Detected Not Detect [facility] Comment:Phencyclidine cut-of f is 25 ng/mL.Positive results are unconfirmed and should not be used fornon-medical purposes. Amphetamine Screen Urine Not Detected Not Detect [facility] Comment:Amphetamine cut-off is 1000 ng/mL.Positive results are unconfirmed and should not be used fornon-medical purposes. Benzodiazepines Screen Urine Not Detected Not Detect [facility] Comment:Benzodiazepine cut-o ff is 200 ng/mL.Positive results are unconfirmed and should not be used fornon-medical purposes. Cocaine Screen Urine POSITIVE(A) Not Detect [facility] Comment:Cocaine cut-off is 3 00 ng/mL.Positive results are unconfirmed and should not be used fornon-medical purposes. Cannabinoid Screen Urine POSITIVE(A) Not Detect [facility] Comment:Cannabinoid cut-off is 50 ng/mL.Positive results are unconfirmed and should not be used fornon-medical purposes. Methadone Screen, Urine Not Detected Not Detect ng/mL [facility] Comment:Methadone cut-off is 300 ng/mL.Positive results are unconfirmed and should not be used fornon-medical purposes. FENTANYL URINE Not Detected Not Detect [facility] Comment:Fentanyl cut-off is 1 ng/mL.Positive results are unconfirmed and should not be used fornon-medical purposes. Oxycodone Urine Screen Not Detected Not Detect ng/mL [facility] Comment:Oxycodone cut-off is 100 ng/mL.Positive results are unconfirmed and should not be used fornon-medical purposes. Buprenorphine Screen Not Detected Not Detect ng/mL [facility] Comment:Buprenorphine cut-of f is 5 ng/mL.Positive results are unconfirmed and should not be used fornon-medical purposes. 08/31/2024 7:58 AM EDT 08/31/2024 8:02 AM EDT us Generic External Data Provider LAB URINE ORDERAB LES Final Result [facility] [address] [place] [address] [phone] * (ABNORMAL) CBC auto differential (08/31/2024 7:58 AM EDT) White Blood Count 12.8(H) 4.8 - 10.8 X10*3/uL [facility] Red Blood Count 5.32 4.20 - 5.50 X10*6/uL [facility] Hemoglobin 12.2 12.0 - 16.0 g/dl [facility] Hematocrit 37.8 37.0 - 47.0 % [facility] Mean Corpuscular Volume 71.1(L) 80.0 - 98.0 fL [facility] Mean Corpuscular Hemoglobin 22.9(L) 27.0 - 33.0 pg [facility] Mean Corpuscular HGB Conc 32.3 31.0 - 35.0 g/dl [facility] Red Cell Distribution Width 15.3 11.0 - 16.0 % [facility] Platelet Count 434(H) 160 - 400 X10*3/uL [facility] Mean Platelet Volume 9.6 9.4 - 12.3 fL [facility] Neutrophils Percent Auto 81.2(H) 45 - 73 % [facility] Imm Gran Pct Auto 0.4 0.0 - 0.4 % [facility] Lymphocytes Percent Auto 14.0(L) 20 - 40 % [facility] Monocytes Percent Auto 3.9 2 - 11 % [facility] Eosinophils Percent Auto 0.2 0 - 4 % [facility] Basophils Percent Auto 0.3 0 - 2 % [facility] NRBC Pct Auto 0.0 0.0 - 0.2 /100WBC [facility] Neutrophils Absolute Auto 10.4(H) 2.0 - 8.3 x10*3/uL [facility] Imm Gran Abs Auto 0.05(H) 0.00 - 0.03 X10*3/uL [facility] Lymphocytes Absolute Auto 1.8 1.2 - 4.9 X10*3/uL [facility] Monocytes Absolute Auto 0.5 0.1 - 1.2 X10*3/uL [facility] Eosinophils Absolute Auto 0.0 0.0 - 0.4 X10*3/uL [facility] Basophils Absolute Auto 0.0 0.0 - 0.2 X10*3/uL [facility] NRBC Abs Auto 0.000 0.0 - 0.012 X10*3/uL [facility] 08/31/2024 7:58 AM EDT 08/31/2024 8:02 AM EDT Generic External Data Provider LAB BLOOD ORDERAB LES Final Result Performing Organization Address [facility] Co de Phone Number [facility] [address] [place] [phone] * Acetaminophen level (08/31/2024 7:58 AM EDT) Pathologist [facility] Acetaminophen LAB <3 <30 mcg/mL [facility] 08/31/2024 7:58 AM EDT 08/31/2024 8:02 AM EDT Generic External Data Provider LAB BLOOD ORDERAB LES Final Result Performing Organization Address [facility] Phone Number [facility] [address] [place] [phone] * (ABNORMAL) Salicylate (08/31/2024 7:58 AM EDT) Pathologist [facility] Salicylate <5.0(L) 15 - 30 mg/dL [facility] 08/31/2024 7:58 AM EDT 08/31/2024 8:02 AM EDT Generic External Data Provider LAB BLOOD ORDERAB LES Final Result Performing Organization Address [facility] de Phone Number [facility] [address] [place] [phone] * (ABNORMAL) Comprehensive Metabolic Panel (08/31/2024 7:57 AM EDT) Pathologist [facility] Sodium 141 135 - 145 mmol/L [facility] Potassium 3.6 3.3 - 5.1 mmol/L [facility] Chloride 108 96 - 108 mmol/L [facility] Carbon Dioxide 20(L) 22 - 29 mmol/L [facility] Anion Gap 17 12 - 20 [facility] Urea Nitrogen (BUN) 19(H) 9 - 16 mg/dL [facility] Creatinine, Serum 0.90 0.5 - 1.4 mg/dL [facility] Creatinine Clr Calc Pharmacy 100.7 [facility] Comment:Provided height and weight: 167.64 cm,97.5 kg.eGFR (calculated from the MDRD study equation) and eCrCl(calculated from the Cockcroft-Gault equation) are based ondifferent parameters and may not yield comparable results.If eCrCl result is absurd, please check patient'sheight/weight. Estimated Glomerular Filt Rate >60 [facility] Comment:Chronic Kidney Disea se: Estimated GFR < 60 mL/min/1.56h5Lacnoh Kidney Disease: Estimated GFR < 15 mL/min/1.73m2 Glucose 131(H) 60 - 115 mg/dL [facility] Calcium 9.3 8.4 - 10.2 mg/dL [facility] Bilirubin, Total 0.8 0.0 - 1.0 mg/dL [facility] Aspartate Amino Transferase 29 5 - 31 U/L [facility] Alanine Aminotransferase 32(H) 0 - 31 U/L [facility] Total Protein 9.4(H) 6.5 - 8.0 g/dL [facility] Albumin Level 4.4 3.5 - 5.0 g/dL [facility] Alkaline Phosphatase 97 39 - 117 U/L [facility] 08/31/2024 7:57 AM EDT 08/31/2024 8:02 AM EDT us Generic External Data Provider LAB BLOOD ORDERAB LES Final Result [facility] [address] [place] [phone] * TSH W/Reflex to FT4 (06/26/2024 12:44 PM EST) TSH reflex Free T4 1.62 0.32 - 4.0 uIU/mL [facility] Blood Venous blood specimen / Unknown 06/26/2024 12:44 PM EST 06/26/2024 4:04 PM EST Adrianne Becerril MD LAB BLOOD ORDERABLES Final Res ult Performing Organization Address [facility] Co de Phone Number [facility] [address] [place] [phone] * Hemoglobin A1c (06/26/2024 12:44 PM EST) Hemoglobin A1c 5.8 <6.0 % [facility] Comment:Hemoglobin A1C Refer ence Range Adults: 4.8 - 6.0 % Non diabetic: < 6.0 % Goal: < 7.0 %Additional Action Suggested: > 8.0 %Note: Hemoglobin A1c results are invalid for patients with abnormal amounts of HbF. Blood transfusions may impact the HbA1c concentration in the patient sample. Estimated Average Glucose 120 mg/dL [facility] Comment:eAG = Estimated ave rage glucose which is %A1C expressed asaverage glucose, using the formula of the K4G-[id number] Glucose study (ADAG), Diabetes Care, Vol.31,#8,Jan. 2007 Blood Venous blood specimen / Unknown 06/26/2024 12:44 PM EST 06/26/2024 4:04 PM EST Adrianne Becerril MD LAB BLOOD ORDERABLES Final Res ult Performing Organization Address City/[facility]/ZIP Co de Phone Number [facility] [address] [place] [phone] * HIV-1 RNA, Quantitative, Real-Time PCR with Reflex to Genotype (RTI, PI, Integrase) (07/27/2022 12:01 PM EST) HIV 1 RNA, QN PCR NOT DETECTED copies/mL [facility], HIV 1 RNA, QN PCR NOT DETECTED Log copies/mL [facility], Comment: REFERENCE RANGE: NOT DETECTED copies/mL ?NOT DETECTED ??Log copies/mL This test was performed using Real-Time Polymerase Chain Reaction. Reportable range is 20 to 10,000,000 copies/mL (1.30-7.00 Log copies/mL). 07/27/2022 12:0 1 PM EST 07/27/2022 12:01 PM EST Narrative [facility] - 07/31/2022 2:16 AM EST FASTING:YES FASTING: YES Roxanne Lee [facility] LAB BLOOD ORDERABLES Final Resu lt [facility] [address], [place] [address] [facility] [facility], [address] [facility] [place] [address] * (ABNORMAL) Lipid Panel, Standard (07/27/2022 12:01 PM EST) [facility] Cholesterol, Total 121 <200 mg/dL [facility] [place] [facility] [facility] HDL Cholesterol 41(L) > OR = 50 mg/dL [facility] [place] [facility] Triglycerides 50 <150 mg/dL [facility] [place] [facility] LDL Cholesterol 68 mg/dL (calc) [facility] Comment: Reference range: <100 Desirable range <100 mg/dL for primary prevention; ?? <70 mg/dL for patients with CHD or diabetic patients with > or = 2 CHD risk factors. LDL-C is now calculated using the Anshu-Sheila calculation, which is a validated novel method providing better accuracy than the Friedewald equation in the estimation of LDL-C. Anshu SS et al. YVES. 2013;310(19): 2096-1477 (http://education.[employer]/faq/OWY946) Chol/HDLC Ratio 3.0 <5.0 (calc) [facility] [place] [facility] Non-HDL Cholesterol 80 <130 mg/dL (calc) [facility] [place] [facility] Comment: For patients with diabetes plus 1 major ASCVD risk factor, treating to a non-HDL-C goal of <100 mg/dL (LDL-C of <70 mg/dL) is considered a therapeutic option. Blood Venous blood specimen / Unknown 07/27/2022 12:01 PM EST 07/27/2022 12:01 PM EST Narrative [facility] - 07/31/2022 2:16 AM EST FASTING:YES FASTING: YES Roxanne Lee [employer] LAB BLOOD ORDERABLES Final Resu lt [facility] [address] [place] [address], [facility], [place] [address] [facility] [address] [place] [address], (Nl2) [place] [address] * THINPREP TIS PAP AND HPV mRNA E6/E7 WITH REFLEX TO HPV 16,18/45 (09/11/2021 9:58 AM EDT) Clinical Information: None given [facility] COMMENT SEE COMMENT [facility] Comment: EXPLANATORY NOTE: ? The Pap is a screening test for cervical cancer. It is ?? not a diagnostic test and is subject to false negative ?? and false positive results. It is most reliable when a ?? satisfactory sample, regularly obtained, is submitted ?? with relevant clinical findings and history, and when ?? the Pap result is evaluated along with historic and ?? current clinical information. ?? COMMENT: This Pap test has been evaluated with computer assisted technology. [employer] SYSTEM Cost Accountant: SEE COMMENT [facility] Comment: CMG, CT(ASCP) CT screening location: [address] ??[id number] HPV nRNA E6/E7 Not Detected Not Detected [facility] Comment: Methodology: Records Analysis Manager-Mediated Amplification This assay detects E6/E7 viral messenger RNA (mRNA) from 14 high-risk HPV types (16,18,31,33,35,39,45,51,52,56,58,59,66,68). ? The analytical performance characteristics of this assay have been determined by [facility]. The modifications have not been cleared or approved by the FDA. This assay has been validated pursuant to the CLIA regulations and is used for clinical purposes. ?? For additional information, please refer to http://[employer] 1/faq/NTQ183j6 (This link if provided for information/ educational purposes only.) Interpretation/Re sult: Negative for intraepithelial lesion or malignancy. [facility] LMP: NONE [facility] Prev. BX: NONE GIVEN [facility] Prev. PAP: NONE GIVEN [facility] SOURCE: None given [facility] Statement Of Adequacy: SEE COMMENT [facility] Comment: Satisfactory for evaluation. Endocervical/transformation zone component absent. Age and/or menstrual status not provided 09/11/2021 9:58 AM EDT us Nataly Herndon CNM LAB PATHOLOGY ORDERABLES Final Result Performing Organization Address [facility] de Phone Number [facility] [address] * HEPATITIS C AB W/REFL TO HCV RNA, QN, PCR (09/05/2021 2:03 PM EDT) HEPATITIS C ANTIBODY NON-REACT OBIE NON-REACT OBIE [facility] INDEX 0.02 <1.00 [facility] Comment: ?? HCV antibody was non-reactive. There is no laboratory ?? evidence of HCV infection. ?? In most cases, no further action is required. However, if recent HCV exposure is suspected, a test for HCV RNA (test code 58749) is suggested. ?? For additional information please refer to http://[employer].Opt[employer] 1/faq/KJO52t2 (This link is being provided for informational/ educational purposes only.) ?? 09/05/2021 2:03 PM EDT us Denise Wharton MD HISTORICAL/NON ORDERABLE LAB S Final Result Performing Organization Address [facility] Co de Phone Number [facility] [address] from Last 3 Months or Most Recently Relevant to Health Maintenance Insurance HSN PARTIAL * Guarantor: Kymberly Melgar Account Type Relation to Patient Date of Phone Billing Address Personal/Family Self [address] Care Teams Shear Assembler Relationship Specialty Start Date End Date Adrianne Becerril MD [address] [place] [address] PCP - General Family Medicine 02/14/24 Angelica Merrill Capacitor RepairerMedia Developer 09/12/23
--- OUTSIDE RECORDS SUMMARY | 2024-08-31 08:30 | XMS_ITS | Encounter Summary ---
Author Organization Hers Address [address] [facility] 7t [place] [address] Care Team Providers Care Pole Lift Operator Name Role Phone Adrianne Becerril MD Primary Care Provider [phone] Encounter Details Date Type Department Care Team ([facility] st Contact Info) Description 08/28/2024 Population Health Risk Score [facility] () Department [address] [facility] [address] [place] [phone] Provider, Population Health Generic Social History Tobacco Use Types Packs/Day Years Used Date Smoking Tobacco: Former Smokeless Tobacco: Never Alcohol Use Standard Drinks/Week Comments Not Currently [...] Orientation Straight 04/16/2022 10 :40 AM EDT documented as of this encounter Plan of Treatment Not on file documented as of this encounter Visit Diagnoses Not on filedocumented in this encounter Additional Health Concerns Assessment Noted Time PHQ-9 Depression Total Score: 25 024 1:37 PM EST documented as of this encounter Care Teams Pole Lift Operator Relationship Specialty Start Date End Date Adrianne Becerril MD [address] [place] [address] PCP - General Family Medicine 02/14/24 Angelica Merrill Email Marketing SpecialistConsumer Recruiter 09/12/23 documented as of this encounter
--- OUTSIDE RECORDS SUMMARY | 2024-08-31 08:30 | XMS_ITS | Encounter Summary ---
Author Organization [employer] Address [address] [place] [address] 7t [place] [address] Care Team Providers Care Used Car Lot Porter Name Role Phone Roxanne Lee Primary Care Provider [phone] Adrianne Becerril MD Primary Care Provider [phone] Encounter Details Date Type Department Care Team ([facility] st Contact Info) Description 11/19/2022 Orders Only [facility] [address] [place] [address] Roxanne Lee FNP [address] [place] [address] Social History Tobacco Use Types Packs/Day Years Used Date Smoking Tobacco: Former Cigarettes 2 13 1 - 04/04/2022 Smokeless Tobacco: Never Alcohol Use Standard Drinks/Week Comments Not Currently 0 (1 standard drink = 0.6 oz pur e alcohol) Depression Answer Date Recorded Patient Health Questionnaire-9 Score 21 07/20/2022 Depression Answer Date Recorded Patient Health Questionnaire-2 Score 6 07/20/2022 Comments Unknown Sex and Gender Information Value Date Recorded [...] Assessment Noted Time PHQ-9 Depression Total Score: 21 023 9:06 AM EST documented as of this encounter Care Teams Used Car Lot Porter Relationship Specialty Start Date End Date Roxanne Lee FNP [address] [place] [address] PCP - General Family Medicine 07/27/22 02/13/24 Adrianne Becerril MD [address] [place] [address] PCP - General Family Medicine 02/14/24 Angelica Merrill Flagstone LayerTiller Worker 09/12/23 documented as of this encounter
--- OUTSIDE RECORDS SUMMARY | 2024-08-31 08:30 | XMS_ITS | Encounter Summary ---
Author Organization [employer] Address [address] [facility] 7 [place] [address] Care Team Providers Care Correctional Supply Supervisor Name Role Phone Adrianne Becerril MD Primary Care Provider [phone] Reason for Visit * Reason Onset Date Comments No Show 08/21/2024 Encounter Details Date Type Department Care Team ([facility] Contact Info) Description 08/21/2024 Telephone [facility] [address] [place], [place] [phone] Adrianne Becerril MD [address] [place] [address] No Show Social History Tobacco Use Types Packs/Day Years [...] AM EDT documented as of this encounter Miscellaneous Notes * Telephone Encounter - Cindy Cristobal - 08/21/2024 4:00 PM EST Pt no showed to appt on 08/21/24 documented in this encounter Plan of Treatment Not on file documented as of this encounter Visit Diagnoses Not on filedocumented in this encounter Additional Health Concerns Assessment Noted Time PHQ-9 Depression Total Score: 25 024 1:37 PM EST documented as of this encounter Care Teams Correctional Supply Supervisor Relationship Specialty Start Date End Date Adrianne Becerril MD [address] [place] [address] PCP - General Family Medicine 02/14/24 Angelica Merrill Siding MechanicCement Finisher Helper 09/12/23 documented as of this encounter
--- OUTSIDE RECORDS SUMMARY | 2024-08-31 08:30 | XMS_ITS | Encounter Summary ---
Author Organization [employer] Address [address] [facility] 7t [place] [address] Care Team Providers Care Lumber Sorter Machine Name Role Phone Adrianne Becerril MD Primary Care Provider Encounter Details Date Type Department Care Team ([facility] Contact Info) Description 08/31/2024 Orders Only GENERIC EXTERNAL DATA DEPARTMENT Provider, Generic External Data Social History Tobacco Use Types Packs/Day Years [...] on file documented as of this encounter Procedures Procedure Name Priority Date/Time Associated Diagnosis Comments URINALYSIS, COMPLETE, WITH REFLEX TO CULTURE Routine 08/31/2024 7:58 AM EDT DRUG MONITOR, PANEL 1, SCREEN, URINE Routine 08/31/2024 7:58 AM EDT CBC WITH AUTO DIFFERENTIAL Routine 08/31/2024 7:58 AM EDT ACETAMINOPHEN LEVEL Routine 08/31/2024 7 :58 AM EDT SALICYLATE Routine 08/31/2024 7:58 AM EDT COMPREHENSIVE METABOLIC PANEL Routine 08/31/2024 7:57 AM EDT documented in this encounter Results * (ABNORMAL) Drug Monitoring, Panel 1, Screen, Urine (08/31/2024 7:58 AM EDT) Opiate Screen Urine Not Detected Not Detect [facility] Comment:Opiate cut-off is 30 0 ng/mL.Positive results are unconfirmed and should not be used fornon-medical purposes. Barbiturates, Urine Not Detected Not Detect [facility] Comment:Barbiturate cut-off is 200 ng/mL.Positive results are unconfirmed and should not be used fornon-medical purposes. Phencyclidine Screen Urine Not Detected Not Detect [facility] Comment:Phencyclidine cut-of f is 25 ng/mL.Positive results are unconfirmed and should not be used fornon-medical purposes. Amphetamine Screen Urine Not Detected Not Detect [facility] Comment:Amphetamine cut-off is 1000 ng/mL.Positive results are unconfirmed and should not be used fornon-medical purposes. Benzodiazepines Screen Urine Not Detected Not Detect [facility] Comment:Benzodiazepine cut-o ff is 200 ng/mL.Positive results are unconfirmed and should not be used fornon-medical purposes. Cocaine Screen Urine POSITIVE(A) Not Detect [facility] Comment:Cocaine cut-off is 3 00 ng/mL.Positive results are unconfirmed and should not be used fornon-medical purposes. Cannabinoid Screen Urine POSITIVE(A) Not Detect [facility] Comment:Cannabinoid cut-off is 50 ng/mL.Positive results are unconfirmed and should not be used fornon-medical purposes. Methadone Screen, Urine Not Detected Not Detect ng/mL [facility] Comment:Methadone cut-off is 300 ng/mL.Positive results are unconfirmed and should not be used fornon-medical purposes. FENTANYL URINE Not Detected Not Detect [facility] Comment:Fentanyl cut-off is 1 ng/mL.Positive results are unconfirmed and should not be used fornon-medical purposes. Oxycodone Urine Screen Not Detected Not Detect ng/mL [facility] Comment:Oxycodone cut-off is 100 ng/mL.Positive results are unconfirmed and should not be used fornon-medical purposes. Buprenorphine Screen Not Detected Not Detect ng/mL [facility] Comment:Buprenorphine cut-of f is 5 ng/mL.Positive results are unconfirmed and should not be used fornon-medical purposes. 08/31/2024 7:58 AM EDT 08/31/2024 8:02 AM EDT us Generic External Data Provider LAB URINE ORDERAB LES Final Result [facility] [address] [place] [address] [phone] * Acetaminophen level (08/31/2024 7:58 AM EDT) [facility] Acetaminophen LAB <3 <30 mcg/mL [facility] 08/31/2024 7:58 AM EDT 08/31/2024 8:02 AM EDT us Generic External Data Provider LAB BLOOD ORDERAB LES Final Result Performing Organization Address City/[facility]/ZIP Co de Phone Number [facility] [address] [place] [phone] * (ABNORMAL) Salicylate (08/31/2024 7:58 AM EDT) Salicylate <5.0(L) 15 - 30 mg/dL [facility] 08/31/2024 7:58 AM EDT 08/31/2024 8:02 AM EDT us Generic External Data Provider LAB BLOOD ORDERAB LES Final Result Performing Organization Address [facility] de Phone Number [facility] [address] [place] [phone] * (ABNORMAL) Urinalysis, Complete, with Reflex to Culture (08/31/2024 7:58 AM EDT) Color Urine Twiggs(A) [facility] Appearance Urine Turbid [facility] PH 6.0 5.0 - 9.0 [facility] Glucose Urine UA Negative Negative mg/dL [facility] Urine Blood Large (3+)(A) Negative [facility] Specific [place] - Urine >=1.030(H) 1.005 - 1.025 [facility] Urine Protein 100 (2+)(A) Neg-Trace mg/dL [facility] Urine Ketones Negative Negative mg/dL [facility] Nitrite Urine Negative Negative [facility] Leukocyte Esterase Urine Small (1+)(A) Negative [facility] RBC Urine >20(A) 0 - 2 /HPF [facility] Urine WBC 6-10(A) 0 - 5 /HPF [facility] Urine Squamous Epithelial Cell 11-20 0 - 2 /HPF [facility] Urine Bacteria 4+ None Seen [facility] Hyaline Casts, Urine 0-2 0 - 2 /LPF [facility] 08/31/2024 7:58 AM EDT 08/31/2024 8:02 AM EDT Narrative [facility] - 08/31/2024 8:19 AM EDT [id number], Clean Catch us Generic External Data Provider LAB URINE ORDERAB LES Final Result [facility] [address] [place] [address] [phone] * (ABNORMAL) CBC auto differential (08/31/2024 7:58 AM EDT) White Blood Count 12.8(H) 4.8 - 10.8 X10*3/uL [facility] Red Blood Count 5.32 4.20 - 5.50 X10*6/uL [facility] Hemoglobin 12.2 12.0 - 16.0 g/dl [facility] Hematocrit 37.8 37.0 - 47.0 % [facility] Mean Corpuscular Volume 71.1(L) 80.0 - 98.0 fL [facility] Mean Corpuscular Hemoglobin 22.9(L) 27.0 - 33.0 pg [facility] Mean Corpuscular HGB Conc 32.3 31.0 - 35.0 g/dl [facility] Red Cell Distribution Width 15.3 11.0 - 16.0 % [facility] Platelet Count 434(H) 160 - 400 X10*3/uL [facility] Mean Platelet Volume 9.6 9.4 - 12.3 fL [facility] Neutrophils Percent Auto 81.2(H) 45 - 73 % [facility] Imm Gran Pct Auto 0.4 0.0 - 0.4 % [facility] Lymphocytes Percent Auto 14.0(L) 20 - 40 % [facility] Monocytes Percent Auto 3.9 2 - 11 % [facility] Eosinophils Percent Auto 0.2 0 - 4 % [facility] Basophils Percent Auto 0.3 0 - 2 % [facility] NRBC Pct Auto 0.0 0.0 - 0.2 /100WBC [facility] Neutrophils Absolute Auto 10.4(H) 2.0 - 8.3 x10*3/uL [facility] Imm Gran Abs Auto 0.05(H) 0.00 - 0.03 X10*3/uL [facility] Lymphocytes Absolute Auto 1.8 1.2 - 4.9 X10*3/uL [facility] Monocytes Absolute Auto 0.5 0.1 - 1.2 X10*3/uL [facility] Eosinophils Absolute Auto 0.0 0.0 - 0.4 X10*3/uL [facility] Basophils Absolute Auto 0.0 0.0 - 0.2 X10*3/uL [facility] NRBC Abs Auto 0.000 0.0 - 0.012 X10*3/uL [facility] 08/31/2024 7:58 AM EDT 08/31/2024 8:02 AM EDT us Generic External Data Provider LAB BLOOD ORDERAB LES Final Result [facility] [address] [place] [phone] * (ABNORMAL) Comprehensive Metabolic Panel (08/31/2024 7:57 AM EDT) Sodium 141 135 - 145 mmol/L [facility] Potassium 3.6 3.3 - 5.1 mmol/L [facility] Chloride 108 96 - 108 mmol/L [facility] Carbon Dioxide 20(L) 22 - 29 mmol/L [facility] Anion Gap 17 12 - 20 [facility] Urea Nitrogen (BUN) 19(H) 9 - 16 mg/dL [facility] Creatinine, Serum 0.90 0.5 - 1.4 mg/dL [facility] Creatinine Clr Calc Pharmacy 100.7 [facility] Comment:Provided height and weight: 167.64 cm,97.5 kg.eGFR (calculated from the MDRD study equation) and eCrCl(calculated from the Cockcroft-Gault equation) are based ondifferent parameters and may not yield comparable results.If eCrCl result is absurd, please check patient'sheight/weight. Estimated Glomerular Filt Rate >60 [facility] Comment:Chronic Kidney Disea se: Estimated GFR < 60 mL/min/1.50n4Xnpieg Kidney Disease: Estimated GFR < 15 mL/min/1.73m2 Glucose 131(H) 60 - 115 mg/dL [facility] Calcium 9.3 8.4 - 10.2 mg/dL [facility] Bilirubin, Total 0.8 0.0 - 1.0 mg/dL [facility] Aspartate Amino Transferase 29 5 - 31 U/L [facility] Alanine Aminotransferase 32(H) 0 - 31 U/L [facility] Total Protein 9.4(H) 6.5 - 8.0 g/dL [facility] Albumin Level 4.4 3.5 - 5.0 g/dL [facility] Alkaline Phosphatase 97 39 - 117 U/L [facility] 08/31/2024 7:57 AM EDT 08/31/2024 8:02 AM EDT us Generic External Data Provider LAB BLOOD ORDERAB LES Final Result Performing Organization Address City/State/[facility] Co de Phone Number [facility] [address] [place] [address] [phone] documented in this encounter Visit Diagnoses Not on filedocumented in this encounter Additional Health Concerns Assessment Noted Time PHQ-9 Depression Total Score: 25 024 1:37 PM EST documented as of this encounter Care Teams Lumber Sorter Machine Relationship Specialty Start Date End Date Adrianne Becerril MD [address] [place] [phone] PCP - General Family Medicine 02/14/24 Angelica Merrill Custom Shop WorkerSteel Die Printer 09/12/23 documented as of this encounter
--- OUTSIDE RECORDS SUMMARY | 2024-08-31 08:31 | XMS_ITS ---
Author Organization [facility] Address [address] [place] [id number] Care Team Providers Care Ada Accommodation Consultant Name Role Phone CAROLYN KAUR M.D. Primary Care Provider Arnulfo Draper Jr [phone] REASON FOR VISIT pathology Encounters Encounter Location Date Provider Diagnosis [facility] [address] [place] [phone] 11/06/2023 Arnulfo Amezquita Jr Epigastric pain R10.13 Assessments Encounter Date Diagnosis (ICD Code) Assessment Notes Treatment Notes Treatment Clinical Notes Section Notes 11/06/2023 Epigastric pain (ICD-10 - R10.13) Plan Of Treatment Pending Test Test Name Order Date CELIAC PANEL #10 11/06/2023 Progress Notes * AXEL RYAN MARYALBERTOB:01/1986 (38 yo F)Acc No.[id number]:11/06/2023 Patient:?MARY YANES HAL :1985???Age:38 Y???Sex:Female Address:[address], [place], [address] Subjective: * Chief Complaints: * ???Pathology * Medical History:? * Surgical History:? * Hospitalization/Major Diagno stic Procedure:? * Medications:? Objective: Assessment: * Assessment: 1.?Epigastric pain - R10.13 (Primary)? Plan: * Treatment: * Procedure Codes:? * true * Date:? Generated for Denita vela/Alec/Madysonitting on:?08/31/2024 08:30 AM EDT
--- OUTSIDE RECORDS SUMMARY | 2024-08-31 08:31 | XMS_ITS ---
Author Organization [facility] Address [address] [place] [address] Care Team Providers Care Attending Anesthesiologist Name Role Phone ACROLYN KAUR M.D. Primary Care Provider Arnulfo Draper Jr REASON FOR VISIT epigastric pain Encounters Encounter Location Date Provider Diagnosis [facility] [address] [place] [phone] 10/09/2023 Arnulfo Amezquita Jr Plan Of Treatment No Information Progress Notes * LORETTA YANESOB:01/1986 (38 yo F)Acc No.[id number]:10/09/2023 EGD/MAC Patient:?MARY YANES Provider:?Arnulfo Amezquita MD :1985???Age:37 Y???Sex:Female D ate:10/09/2023 Address:[address], [place], [place] Pcp:CAROLYN KAUR M.D. Subjective: * Chief Complaints: * ???1. Epigastric pain. * Medical History:? Objective: * Vitals:? Assessment: Plan: * Treatment: * * The named appointment provid er may or may not be the originator of this progress note, and it is not deemed complete until electronically signed by the appointment provider. Sign off status: Pending * Provider:?Arnulfo Amezquita MD Date:?0 10/09/2023 Generated for Denita vela/Alec/Sabinasmitting on:?08/31/2024 08:30 AM EDT
[2024-08-31 08:55] LABS: Influenza A PCR NEGATIVE (Negative); Influenza B PCR NEGATIVE (Negative); Resp Syncy Virus RNA Qual PCR NEGATIVE (Negative); SARS COV2 PCR INHOUSE NEGATIVE (Negative)
[2024-08-31] MEDS: Ketorolac Tromethamine 15 MG/ML VIAL IVPUSH ×2 (09:33→15:22)
[2024-08-31 09:50] VITALS: BP 103/64; PULSE 74; RESP 18; TEMP 36; O2SAT 97
--- NOTE | 2024-08-31 10:22 | MHC.CARE ---
Pt meets criteria for IPLOC. Pt is on a Section 12 and provider is in agreement.
[2024-08-31] MEDS: Sulfamethox/Trimeth 800/160 TABLET 1 TAB PO (12:20)
[2024-08-31 12:22] VITALS: BP 110/62; PULSE 82; RESP 18; O2SAT 96
[2024-08-31 12:23] LABS: UPreg QC Valid YES; Urine Pregnancy NEGATIVE (NEGATIVE)
[2024-08-31] MEDS: iohexoL 350 MG/ML 100 ML INFUS..BTL IV (13:24)
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
--- NOTE | 2024-08-31 15:27 | PC.NURSE ---
pt medicated per MAR for 8/10 lower abd cramping/pain, menses started 2 prior to arrival - reports hx of similar cramping.
--- NOTE | 2024-08-31 16:43 | PC.NURSE ---
med rec completed w patient at bedside.
[2024-08-31] MEDS: Magnesium Hydrox/Alum Hydrox 30 ML ORAL.SUSP PO (17:11)
[2024-08-31 17:27] VITALS: BP 120/72; PULSE 80; RESP 14; TEMP 37; O2SAT 98; BMI 35.0
--- NOTE | 2024-08-31 18:52 | PC.NURSE ---
Kymberly was admitted to at 1710? from [facility] Main ED on CV for treatment of depression and suicidality Precipitant of admission include SIB cutting arm and stopping all meds 3 days ago when told her he is her and she has 1 month to move out.? Kymberly reports command AH to cut and kill herself, poor sleep x 5 days, increase in anxiety and depression. She is alert, fully oriented and cooperative with admission process.? Mood is depressed Affect is anxious. She is perseverative about the issues with her .? Thought Process is linear and organized.? She confirms SI with no plan or intent to harm self on the unit. She denies HI. Appetite is poor with recent 20 lb weight loss. She uses marijuana daily. She recently inadvertently smoked marijuana laced with cocaine. She has asthma and a peanut allergy. She was receiving IV toradol for menstrual cramps in ED. She continues to ? menses pain. Goal of admission is to restart medications and stay in a safe place while experiencing AH? Safety Checks are q 15 minutes.
[2024-08-31 20:00] VITALS: BP 117/65; PULSE 71; RESP 16; TEMP 36.8; O2SAT 95
[2024-08-31 20:09] LABS: Alanine Aminotransferase 29 U/L (0-31); Albumin Level 3.8 g/dL (3.5-5.0); Alkaline Phosphatase 88 U/L (39-117); Anion Gap 11 (12-20); Aspartate Amino Transferase 28 U/L (5-31); Bilirubin Total 0.7 mg/dL (0.0-1.0); Blood Urea Nitrogen 19 mg/dL (9-16); Calcium 8.8 mg/dL (8.4-10.2); Carbon Dioxide 24 mmol/L (22-29); Chloride 111 mmol/L (96-108); Creatinine Clr Calc Pharmacy 113.9; Estimated Glomerular Filt Rate > 60; Glucose Fasting 89 mg/dL (60-99); Potassium 3.7 mmol/L (3.3-5.1); Sodium 142 mmol/L (135-145); Total Protein 8.2 g/dL (6.5-8.0)
[2024-08-31] MEDS: Docusate Sodium 100 MG CAPSULE PO (20:17)
[2024-08-31] MEDS: OLANZapine 10 MG TABLET 30 MG PO (20:17)
[2024-08-31] MEDS: traZODone HCL 50 MG TABLET 250 MG PO (20:17)
[2024-08-31] MEDS: Gabapentin 100 MG CAPSULE PO (20:18)
[2024-08-31] MEDS: Fluticasone Propionate 100 MCG BLST.W.DEV 1 PUFF INHALE (20:54)
[2024-08-31] MEDS: Fluticasone Propionate Nasal 16 GM SPRAY 1 SPRAY NOSTRIL-L (20:55)
[2024-09-01] MEDS: Omeprazole 20 MG CAPSULE.DR PO ×2 (06:27→16:27)
[2024-09-01 07:40] VITALS: BP 132/77; PULSE 80; RESP 16; TEMP 37.1; O2SAT 98
[2024-09-01] MEDS: Docusate Sodium 100 MG CAPSULE PO ×2 (08:01→20:46)
[2024-09-01] MEDS: clonazePAM 1 MG TABLET 2 MG PO (08:01)
[2024-09-01] MEDS: Gabapentin 100 MG CAPSULE PO ×3 (08:01→20:47)
[2024-09-01] MEDS: Sertraline HCL 100 MG TABLET 200 MG PO (08:18)
[2024-09-01] MEDS: Fluticasone Propionate Nasal 16 GM SPRAY 1 SPRAY NOSTRIL-L ×2 (08:19→20:45)
[2024-09-01] MEDS: Fluticasone Propionate 100 MCG BLST.W.DEV 1 PUFF INHALE ×2 (08:19→20:45)
[2024-09-01] MEDS: Mineral Oil/Petrolatum,White 106 GM Tube 1 APPL TOPICAL ×2 (08:19→20:50)
[2024-09-01 08:43] LABS: Cholesterol 175 mg/dL (<200); HDL Cholesterol 30 mg/dL (>40); LDL Cholesterol Calculated 116 mg/dL (<100); Triglycerides 148 mg/dL (<150)
[2024-09-01] MEDS: Nicotine 14 MG PATCH.TD24 TRANSDERMA (09:40)
[2024-09-01] MEDS: Magnesium Hydrox/Alum Hydrox 30 ML ORAL.SUSP PO (10:51)
[2024-09-01] MEDS: hydrOXYzine HCL 50 MG TABLET 100 MG PO (14:04)
--- NOTE | 2024-09-01 14:15 | MHC.CLN ---
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 LABS UNREMARKABLE REGULAR DIET WITH ALLERGY TO SHRIMP, PEANUTS AND ALMONDS PO INTAKE GOOD PT IS VERY LOW NUTRITION RISK AT THIS TIME CONTINUE CURRENT CARE PLAN
[2024-09-01] MEDS: Acetaminophen 325 MG TABLET 650 MG PO (15:46)
[2024-09-01 20:45] VITALS: BP 110/62; PULSE 80; RESP 16; TEMP 36.6; O2SAT 96
[2024-09-01] MEDS: traZODone HCL 50 MG TABLET 250 MG PO (20:46)
[2024-09-01] MEDS: OLANZapine 10 MG TABLET 30 MG PO (20:47)
[2024-09-01] MEDS: Benztropine Mesylate 0.5 MG TABLET PO (20:49)
[2024-09-02] MEDS: Omeprazole 20 MG CAPSULE.DR PO ×2 (06:26→15:48)
[2024-09-02 07:38] VITALS: BP 115/69; PULSE 89; RESP 14; TEMP 36.7; O2SAT 96
[2024-09-02] MEDS: Sertraline HCL 100 MG TABLET 200 MG PO (08:05)
[2024-09-02] MEDS: Benztropine Mesylate 0.5 MG TABLET PO ×2 (08:05→20:38)
[2024-09-02] MEDS: Gabapentin 100 MG CAPSULE PO ×3 (08:05→20:38)
[2024-09-02] MEDS: Docusate Sodium 100 MG CAPSULE PO ×2 (08:05→20:38)
[2024-09-02] MEDS: Nicotine 14 MG PATCH.TD24 TRANSDERMA (08:09)
[2024-09-02] MEDS: clonazePAM 1 MG TABLET 2 MG PO (08:18)
[2024-09-02] MEDS: Fluticasone Propionate 100 MCG BLST.W.DEV 1 PUFF INHALE ×2 (08:19→20:36)
[2024-09-02] MEDS: Fluticasone Propionate Nasal 16 GM SPRAY 1 SPRAY NOSTRIL-L ×2 (08:19→20:36)
--- NOTE | 2024-09-02 08:47 | P.PNPSI_ITS ---
Subjective Subjective Date of Service: 09/02/24 Reason For Visit: Crisis Subjective Notes: Conditional Voluntary Interim History: Active on unit. social with peers. attending groups. medication compliant. Patient continues to report feeling anxious and depressed today; pt stated, I tried calling my and when I spoke to him he told me I can't go back home . She reports suicidal ideation with no plan. +AH telling her to harm herself. Pt reports not sleeping well d/t nightmares; discussed Prazosin; start: Prazosin 1mg PO bedtime Medication Compliance: Yes Side effects from medications: No Attending Groups: Yes Mental Status Exam Mental Status Exam Narrative: Pt is alert and oriented; behavior is cooperative and calm; dressed in casual attire; mood is described as depressed and anxious ; eye contact appropriate; Speech is normal rate, volume and not pressured; thought process is organized and goal directed; Thought content is on tx; denies HI/VH. Patient reports suicidal ideation with no plan. Auditory hallucinations that are telling her to hurt herself. Diagnostics Vital Signs (24Hr): Vital Signs - 24 hr 09/01/24 20:45 09/02/24 07:38 Temperature 98 F 98.0 F Pulse Rate 80 89 Respiratory Rate 16 14 Blood Pressure 110/62 115/69 Pulse Oximetry 96 96 Oxygen Delivery Method Room Air Room Air BMI result Body Mass Index 35.0 Labs 08/31/24 07:58 08/31/24 19:39 Labs: Laboratory Results - last 48 hr 08/31/24 08/31/24 09/01/24 07:58 19:39 07:55 Sodium 142 Potassium 3.7 Chloride 111 H Carbon Dioxide 24 Anion Gap 11 L BUN 19 H Creatinine 0.80 Estim Creat Clear Calc 113.9 Estimated GFR > 60 Fasting Glucose 89 Calcium 8.8 Total Bilirubin 0.7 AST 28 ALT 29 Alkaline Phosphatase 88 Total Protein 8.2 H Albumin 3.8 Triglycerides 148 Cholesterol 175 LDL Cholesterol, Calc 116 H HDL Cholesterol 30 L Urine Test NEGATIVE Influenza Type A (PCR) NEGATIVE Influenza Type B (PCR) NEGATIVE RSV RNA Qual (PCR) NEGATIVE SARS-CoV-2 RNA (RT-PCR) NEGATIVE Imaging Radiology Impressions: ITS Impressions Abdomen/Pelvis CT 08/31/24 13:19 IMPRESSION: Consider mild enterocolitis in the correct clinical settings. Subcentimeter hypodensity right hepatic lobe. Spondylosis L4-5 and L5-S1. Fleischner guidelines were followed. Electronically signed by: Kali Lowery MD 08/31/2024 01:48 PM EDT Medications Medications Current Medications Acetaminophen (Acetaminophen 325 Mg Tablet) 650 mg PO Q6H PRN PRN Reason: Headache/Pain, Scale 1-10 Last Admin: 09/01/24 15:46 Dose: 650 mg Al Hydroxide/Mg Hydroxide (Magnesium Hydrox/Alum Hydrox 30 Ml Oral.Susp) 30 ml PO Q6H PRN PRN Reason: Heartburn/Nausea Last Admin: 09/01/24 10:51 Dose: 30 ml Albuterol Sulfate (Albuterol Sulfate 90 Mcg 8 Gm Inhaler) 1 puff INHALE RQ4H PRN PRN Reason: Wheezing Benztropine Mesylate (Benztropine Mesylate 0.5 Mg Tablet) 0.5 mg PO BID [facility] Last Admin: 09/02/24 08:05 Dose: 0.5 mg Capsaicin (Capsaicin 0.025% Cream 60 Gm Tube) 1 appl TOPICAL QID PRN; Protocol PRN Reason: muscle aches Clonazepam (Clonazepam 1 Mg Tablet) 2 mg PO DAILY PRN PRN Reason: 2 hours prior to anxiety provoking event Last Admin: 09/02/24 08:18 Dose: 2 mg Docusate Sodium (Docusate Sodium 100 Mg Capsule) 100 mg PO BID [facility] Last Admin: 09/02/24 08:05 Dose: 100 mg Fluticasone Propionate (Fluticasone Propionate 100 Mcg Blst.W.Dev) 1 puff INHALE RBID [facility] Last Admin: 09/02/24 08:19 Dose: 1 puff Fluticasone Propionate (Fluticasone Propionate Nasal 16 Gm [place]) 1 spray NOSTRIL-L BID [facility] Last Admin: 09/02/24 08:19 Dose: 1 spray Gabapentin (Gabapentin 100 Mg Capsule) 100 mg PO TID [facility] Last Admin: 09/02/24 08:05 Dose: 100 mg Hydroxyzine HCl (Hydroxyzine Hcl 50 Mg Tablet) 100 mg PO TID PRN PRN Reason: anxiety Last Admin: 09/01/24 14:04 Dose: 100 mg Magnesium Hydroxide (Milk Of Magnesia 30 Ml Oral.Susp) 30 ml PO DAILY PRN PRN Reason: Constipation Multi-Ingred Cream/Lotion/Oil/Oint (Mineral Oil/Petrolatum,White 106 Gm Tube) 1 appl TOPICAL BID PRN; Protocol PRN Reason: Dry Skin Last Admin: 09/01/24 20:50 Dose: 1 appl Nicotine (Nicotine 14 Mg Patch.Td24) 14 mg TRANSDERMA DAILY [facility] Last Admin: 09/02/24 08:09 Dose: 14 mg Nicotine Polacrilex (Nicotine Polacrilex 2 Mg Gum) 2 mg BUCCAL Q2H PRN PRN Reason: Nicotine Cravings Olanzapine (Olanzapine 10 Mg Tablet) 30 mg PO BEDTIME [facility] Last Admin: 09/01/24 20:47 Dose: 30 mg Omeprazole (Omeprazole 20 Mg Capsule.Dr) 20 mg PO BID@0630,1630 [facility] Last Admin: 09/02/24 06:26 Dose: 20 mg Ondansetron HCl (Ondansetron Odt 4 Mg Tab.Rapdis) 4 mg TRANSLINGU Q6H PRN PRN Reason: Nausea and Vomiting Polyethylene Glycol (Polyethylene Glycol 3350 17 Gm Powd.Pack) 17 gm PO DAILY PRN PRN Reason: Constipation Quetiapine Fumarate (Quetiapine Fumarate 50 Mg Tablet) 50 mg PO TID PRN PRN Reason: panic attack Sertraline HCl (Sertraline Hcl 100 Mg Tablet) 200 mg PO DAILY [facility] Last Admin: 09/02/24 08:05 Dose: 200 mg Trazodone HCl (Trazodone Hcl 50 Mg Tablet) 250 mg PO BEDTIME [facility] Last Admin: 09/01/24 20:46 Dose: 250 mg Trimethoprim/Sulfamethoxazole (Sulfamethox/Trimeth 800/160 Tablet) 1 tab PO BID ONE Stop: 09/03/24 14:03 Allergies Allergies Allergy/AdvReac Type Severity Reaction Status Date / Time almond Allergy Severe Anaphylaxis Verified 08/31/24 07:22 Penicillins Allergy Severe Anaphylaxis Verified 08/31/24 07:22 shrimp Allergy Severe Anaphylaxis Verified 08/31/24 07:22 peanuts Allergy Severe Anaphylaxis Uncoded 08/31/24 07:22 Assessment & Plan Assessment & Plan (1) MDD (major depressive disorder), recurrent episode: Status: Acute Code(s): F33.9 - Major depressive disorder, recurrent, unspecified (2) PTSD (post-traumatic stress disorder): Status: Acute Code(s): F43.10 - Post-traumatic stress disorder, unspecified (3) Cocaine use disorder: Status: Acute Code(s): F14.10 - Cocaine abuse, uncomplicated Plan Patient is a 38-year-old female with history of MDD, PTSD and cocaine use disorder who self presented to [facility] reporting that she smoked marijuana 2 days ago and believes it was laced with cocaine which has resulted in her feeling depressed with suicidal ideation. Plan: CV 15 minute safety checks Continue home medication Obtain collateral Encourage groups Discharge planning 09/02: Active on unit. social with peers. attending groups. medication compliant. Patient continues to report feeling anxious and depressed today; pt stated, I tried calling my and when I spoke to him he told me I can't go back home . She reports suicidal ideation with no plan. +AH telling her to harm herself. Pt reports not sleeping well d/t nightmares; discussed Prazosin; start: Prazosin 1mg PO bedtime Patient educated on: diagnosis, medication risk/benefits and therapeutic strategies Reason for continued inpatient stay Substantial Risk for: harm to self and med/psych decompensation Time Spent With Patient Time: Total time managing care of this patient today _20___ minutes.
[2024-09-02] MEDS: hydrOXYzine HCL 50 MG TABLET 100 MG PO ×2 (08:58→16:45)
[2024-09-02] MEDS: Sulfamethox/Trimeth 800/160 TABLET 1 TAB PO ×2 (12:22→20:38)
[2024-09-02] MEDS: Acetaminophen 325 MG TABLET 650 MG PO (15:53)
[2024-09-02 19:47] VITALS: BP 112/59; PULSE 77; RESP 16; TEMP 36.9; O2SAT 96
[2024-09-02] MEDS: traZODone HCL 50 MG TABLET 250 MG PO (20:36)
[2024-09-02] MEDS: Prazosin HCL 1 MG CAPSULE PO (20:37)
[2024-09-02] MEDS: OLANZapine 10 MG TABLET 30 MG PO (20:39)
[2024-09-03] MEDS: Omeprazole 20 MG CAPSULE.DR PO ×2 (06:39→15:31)
[2024-09-03 07:00] VITALS: BMI 35.5
[2024-09-03 07:45] VITALS: BP 108/54; PULSE 85; RESP 16; TEMP 36.7; O2SAT 94
[2024-09-03] MEDS: Nicotine 14 MG PATCH.TD24 TRANSDERMA (08:59)
[2024-09-03] MEDS: Fluticasone Propionate Nasal 16 GM SPRAY 1 SPRAY NOSTRIL-L ×2 (08:59→21:11)
[2024-09-03] MEDS: Fluticasone Propionate 100 MCG BLST.W.DEV 1 PUFF INHALE ×2 (08:59→21:10)
[2024-09-03] MEDS: Sulfamethox/Trimeth 800/160 TABLET 1 TAB PO ×2 (09:00→21:14)
[2024-09-03] MEDS: Gabapentin 100 MG CAPSULE PO ×3 (09:00→21:12)
[2024-09-03] MEDS: Docusate Sodium 100 MG CAPSULE PO ×2 (09:00→21:12)
[2024-09-03] MEDS: Sertraline HCL 100 MG TABLET 200 MG PO (09:00)
[2024-09-03] MEDS: Benztropine Mesylate 0.5 MG TABLET PO ×2 (09:01→21:12)
[2024-09-03] MEDS: Acetaminophen 325 MG TABLET 650 MG PO (09:52)
[2024-09-03] MEDS: QUEtiapine Fumarate 50 MG TABLET PO ×3 (11:58→21:16)
--- NOTE | 2024-09-03 12:17 | HO.PSYCHPN ---
Subjective Subjective Date of Service: 09/03/24 Reason For Visit: Crisis Interim History: Reports increase in sx today, passive SI without plan. Thoughts of SIBS with a dietary fork. Safety tray ordered. Describes nightmares, voices to self harm while in the shower, however states she does feel safe in hospital. Discussed seeing her daughter in [place] along with the loss of her relationship. Concerns about needing to find another place to live. Medication Compliance: Yes Side effects from medications: No Attending Groups: Yes Review of Systems Acute medical concerns: No Review of Systems Review of Systems menses, cramping Mental Status Exam Mental Status Exam Patient Appearance: Fatigued Patient Orientation: Person, Place, Time and Situation Level of Consciousness: Alert Patient Behavior: Talkative and Good Eye Contact Mood Description: Depressed Affect Description: Flat Patient Cognition Impaired: No Ability to Follow Directions: Good Speech Pattern: Spontaneous Speech and Soft-Spoken Memory Description: Intact Hallucinations: Auditory Delusions: Present Thought Process: Rumination Thought Content: positive for Perseveration and positive for Suicidal Ideation Depressive Symptoms: Thoughts of /Suicide Judgement: Fair Diagnostics Vital Signs (24Hr): Vital Signs - 24 hr 09/02/24 19:47 09/03/24 07:45 Temperature 98.5 F 98.0 F Pulse Rate 77 85 Respiratory Rate 16 16 Blood Pressure 112/59 L 108/54 L Pulse Oximetry 96 94 Oxygen Delivery Method Room Air Room Air BMI result Body Mass Index 35.0 Labs 08/31/24 07:58 08/31/24 19:39 Imaging Radiology Impressions: ITS Impressions Abdomen/Pelvis CT 08/31/24 13:19 IMPRESSION: Consider mild enterocolitis in the correct clinical settings. Subcentimeter hypodensity right hepatic lobe. Spondylosis L4-5 and L5-S1. Fleischner guidelines were followed. Electronically signed by: Kali Lowery MD 08/31/2024 01:48 PM EDT RP Medications Medications Current Medications Acetaminophen (Acetaminophen 325 Mg Tablet) 650 mg PO Q6H PRN PRN Reason: Headache/Pain, Scale 1-10 Last Admin: 09/03/24 09:52 Dose: 650 mg Al Hydroxide/Mg Hydroxide (Magnesium Hydrox/Alum Hydrox 30 Ml Oral.Susp) 30 ml PO Q6H PRN PRN Reason: Heartburn/Nausea Last Admin: 09/01/24 10:51 Dose: 30 ml Albuterol Sulfate (Albuterol Sulfate 90 Mcg 8 Gm Inhaler) 1 puff INHALE RQ4H PRN PRN Reason: Wheezing Benztropine Mesylate (Benztropine Mesylate 0.5 Mg Tablet) 0.5 mg PO BID [facility] Last Admin: 09/03/24 09:01 Dose: 0.5 mg Capsaicin (Capsaicin 0.025% Cream 60 Gm Tube) 1 appl TOPICAL QID PRN; Protocol PRN Reason: muscle aches Clonazepam (Clonazepam 1 Mg Tablet) 2 mg PO DAILY PRN PRN Reason: 2 hours prior to anxiety provoking event Last Admin: 09/02/24 08:18 Dose: 2 mg Docusate Sodium (Docusate Sodium 100 Mg Capsule) 100 mg PO BID [facility] Last Admin: 09/03/24 09:00 Dose: 100 mg Fluticasone Propionate (Fluticasone Propionate 100 Mcg Blst.W.Dev) 1 puff INHALE RBID [facility] Last Admin: 09/03/24 08:59 Dose: 1 puff Fluticasone Propionate (Fluticasone Propionate Nasal 16 Gm [place]) 1 spray NOSTRIL-L BID [facility] Last Admin: 09/03/24 08:59 Dose: 1 spray Gabapentin (Gabapentin 100 Mg Capsule) 100 mg PO TID [facility] Last Admin: 09/03/24 09:00 Dose: 100 mg Hydroxyzine HCl (Hydroxyzine Hcl 50 Mg Tablet) 100 mg PO TID PRN PRN Reason: anxiety Last Admin: 09/02/24 16:45 Dose: 100 mg Ibuprofen (Ibuprofen 400 Mg Tablet) 400 mg PO Q6H PRN PRN Reason: Menstrual Cramps Magnesium Hydroxide (Milk Of Magnesia 30 Ml Oral.Susp) 30 ml PO DAILY PRN PRN Reason: Constipation Multi-Ingred Cream/Lotion/Oil/Oint (Mineral Oil/Petrolatum,White 106 Gm Tube) 1 appl TOPICAL BID PRN; Protocol PRN Reason: Dry Skin Last Admin: 09/01/24 20:50 Dose: 1 appl Nicotine (Nicotine 14 Mg Patch.Td24) 14 mg TRANSDERMA DAILY [facility] Last Admin: 09/03/24 08:59 Dose: 14 mg Nicotine Polacrilex (Nicotine Polacrilex 2 Mg Gum) 2 mg BUCCAL Q2H PRN PRN Reason: Nicotine Cravings Olanzapine (Olanzapine 10 Mg Tablet) 30 mg PO BEDTIME [facility] Last Admin: 09/02/24 20:39 Dose: 30 mg Omeprazole (Omeprazole 20 Mg Capsule.Dr) 20 mg PO BID@0630,1630 [facility] Last Admin: 09/03/24 06:39 Dose: 20 mg Ondansetron HCl (Ondansetron Odt 4 Mg Tab.Rapdis) 4 mg TRANSLINGU Q6H PRN PRN Reason: Nausea and Vomiting Polyethylene Glycol (Polyethylene Glycol 3350 17 Gm Powd.Pack) 17 gm PO DAILY PRN PRN Reason: Constipation Prazosin HCl (Prazosin Hcl 1 Mg Capsule) 2 mg PO BEDTIME [facility]; Protocol Quetiapine Fumarate (Quetiapine Fumarate 50 Mg Tablet) 50 mg PO TID PRN PRN Reason: panic attack Last Admin: 09/03/24 11:58 Dose: 50 mg Sertraline HCl (Sertraline Hcl 100 Mg Tablet) 200 mg PO DAILY [facility] Last Admin: 09/03/24 09:00 Dose: 200 mg Trazodone HCl (Trazodone Hcl 50 Mg Tablet) 250 mg PO BEDTIME [facility] Last Admin: 09/02/24 20:36 Dose: 250 mg Trimethoprim/Sulfamethoxazole (Sulfamethox/Trimeth 800/160 Tablet) 1 tab PO BID [facility] [place] Last Admin: 09/03/24 09:00 Dose: 1 tab Allergies Allergies Allergy/AdvReac Type Severity Reaction Status Date / Time almond Allergy Severe Anaphylaxis Verified 08/31/24 07:22 Penicillins Allergy Severe Anaphylaxis Verified 08/31/24 07:22 shrimp Allergy Severe Anaphylaxis Verified 08/31/24 07:22 peanuts Allergy Severe Anaphylaxis Uncoded 08/31/24 07:22 Assessment & Plan Assessment & Plan (1) MDD (major depressive disorder), recurrent episode: Status: Acute Code(s): F33.9 - Major depressive disorder, recurrent, unspecified (2) PTSD (post-traumatic stress disorder): Status: Acute Code(s): F43.10 - Post-traumatic stress disorder, unspecified (3) Cocaine use disorder: Status: Acute Code(s): F14.10 - Cocaine abuse, uncomplicated Plan Patient is a 38-year-old female with history of MDD, PTSD and cocaine use disorder who self presented [place] [facility] reporting that she smoked marijuana 2 days ago and believes it was laced with cocaine which has resulted in her feeling depressed with suicidal ideation. Plan: CV 15 minute safety checks Continue home medication Obtain collateral Encourage groups Discharge planning 09/02: Active on unit. social with peers. attending groups. medication compliant. Patient continues to report feeling anxious and depressed today; pt stated, I tried calling my and when I spoke to him he told me I can't go back home . She reports suicidal ideation with no plan. +AH telling her to harm herself. Pt reports not sleeping well d/t nightmares; discussed Prazosin; start: Prazosin 1mg PO bedtime. 09/03: Reports passive SI, wanting to self harm with a fork. Safety tray ordered. Reports Prazosin needs to increase as she reports taking 8 mg by history-we increased to 2 mg. Ibuprofen prn for menstrual cramping. Patient educated on: medication risk/benefits Reason for continued inpatient stay Substantial Risk for: rapid decompensation Time Spent With Patient Time: Total time managing care of this patient today ____ minutes.
[2024-09-03] MEDS: Ibuprofen 400 MG TABLET PO ×2 (12:58→21:15)
[2024-09-03] MEDS: clonazePAM 1 MG TABLET 2 MG PO (15:56)
[2024-09-03 19:33] VITALS: BP 110/66; PULSE 73; RESP 16; TEMP 36.7; O2SAT 99
[2024-09-03] MEDS: OLANZapine 10 MG TABLET 30 MG PO (21:12)
[2024-09-03] MEDS: traZODone HCL 50 MG TABLET 250 MG PO (21:13)
[2024-09-03] MEDS: hydrOXYzine HCL 50 MG TABLET 100 MG PO (21:15)
[2024-09-03 21:17] VITALS: BP 110/53
[2024-09-03] MEDS: Prazosin HCL 1 MG CAPSULE 2 MG PO (21:17)
[2024-09-04] MEDS: Omeprazole 20 MG CAPSULE.DR PO ×2 (06:20→16:24)
[2024-09-04 07:40] VITALS: BP 113/69; PULSE 93; RESP 18; TEMP 36.9; O2SAT 96
[2024-09-04] MEDS: Sertraline HCL 100 MG TABLET 200 MG PO (08:39)
[2024-09-04] MEDS: Gabapentin 100 MG CAPSULE PO ×3 (08:39→20:33)
[2024-09-04] MEDS: Benztropine Mesylate 0.5 MG TABLET PO ×2 (08:40→20:32)
[2024-09-04] MEDS: Fluticasone Propionate 100 MCG BLST.W.DEV 1 PUFF INHALE (08:40)
[2024-09-04] MEDS: Docusate Sodium 100 MG CAPSULE PO ×2 (08:40→20:32)
[2024-09-04] MEDS: Sulfamethox/Trimeth 800/160 TABLET 1 TAB PO ×2 (08:40→20:33)
[2024-09-04] MEDS: Nicotine 14 MG PATCH.TD24 TRANSDERMA (08:40)
[2024-09-04] MEDS: Fluticasone Propionate Nasal 16 GM SPRAY 1 SPRAY NOSTRIL-L (08:40)
[2024-09-04] MEDS: QUEtiapine Fumarate 50 MG TABLET PO ×3 (08:43→20:32)
[2024-09-04] MEDS: hydrOXYzine HCL 50 MG TABLET 100 MG PO ×2 (10:30→16:24)
[2024-09-04] MEDS: Magnesium Hydrox/Alum Hydrox 30 ML ORAL.SUSP PO (11:39)
[2024-09-04] MEDS: Ibuprofen 400 MG TABLET PO (12:38)
[2024-09-04] MEDS: clonazePAM 1 MG TABLET 2 MG PO (13:04)
--- NOTE | 2024-09-04 15:16 | HO.PSYCHPN ---
Subjective Subjective Date of Service: 09/04/24 Reason For Visit: Crisis Subjective Notes: Conditional Voluntary Interim History: Active on unit, attending groups. Continues anxious regarding returning home and wanting her to leave. Pt stated, he told me I have until October to move out. I just want my own place . Pt reports she plans on contacting [employer] to find housing. Continues to reports suicidal ideation with no plan. Medication Compliance: Yes Side effects from medications: No Attending Groups: Yes Mental Status Exam Mental Status Exam Narrative: Pt is alert and oriented; behavior is cooperative and calm; dressed in casual attire; mood is described as depressed and anxious ; eye contact appropriate; Speech is normal rate, volume and not pressured; thought process is organized and goal directed; Thought content is on tx; HI/VH/VH not expressed. Patient reports suicidal ideation with no plan. Diagnostics Vital Signs (24Hr): Vital Signs - 24 hr 09/03/24 19:33 09/03/24 21:17 09/04/24 07:40 Temperature 98.0 F 98.4 F Pulse Rate 73 93 Respiratory Rate 16 18 Blood Pressure 110/66 110/53 L 113/69 Pulse Oximetry 99 96 Oxygen Delivery Method Room Air Room Air BMI result Body Mass Index 35.5 Labs 08/31/24 07:58 08/31/24 19:39 Imaging Radiology Impressions: ITS Impressions Abdomen/Pelvis CT 08/31/24 13:19 IMPRESSION: Consider mild enterocolitis in the correct clinical settings. Subcentimeter hypodensity right hepatic lobe. Spondylosis L4-5 and L5-S1. Fleischner guidelines were followed. Electronically signed by: Kali Lowery MD 08/31/2024 01:48 PM EDT Medications Medications Current Medications Acetaminophen (Acetaminophen 325 Mg Tablet) 650 mg PO Q6H PRN PRN Reason: Headache/Pain, Scale 1-10 Last Admin: 09/03/24 09:52 Dose: 650 mg Al Hydroxide/Mg Hydroxide (Magnesium Hydrox/Alum Hydrox 30 Ml Oral.Susp) 30 ml PO Q6H PRN PRN Reason: Heartburn/Nausea Last Admin: 09/04/24 11:39 Dose: 30 ml Albuterol Sulfate (Albuterol Sulfate 90 Mcg 8 Gm Inhaler) 1 puff INHALE RQ4H PRN PRN Reason: Wheezing Benztropine Mesylate (Benztropine Mesylate 0.5 Mg Tablet) 0.5 mg PO BID [facility] Last Admin: 09/04/24 08:40 Dose: 0.5 mg Capsaicin (Capsaicin 0.025% Cream 60 Gm Tube) 1 appl TOPICAL QID PRN; Protocol PRN Reason: muscle aches Clonazepam (Clonazepam 1 Mg Tablet) 2 mg PO DAILY PRN PRN Reason: 2 hours prior to anxiety provoking event Last Admin: 09/04/24 13:04 Dose: 2 mg Docusate Sodium (Docusate Sodium 100 Mg Capsule) 100 mg PO BID [facility] Last Admin: 09/04/24 08:40 Dose: 100 mg Fluticasone Propionate (Fluticasone Propionate 100 Mcg Blst.W.Dev) 1 puff INHALE RBID [facility] Last Admin: 09/04/24 08:40 Dose: 1 puff Fluticasone Propionate (Fluticasone Propionate Nasal 16 Gm [place]) 1 spray NOSTRIL-L BID [facility] Last Admin: 09/04/24 08:40 Dose: 1 spray Gabapentin (Gabapentin 100 Mg Capsule) 100 mg PO TID [facility] Last Admin: 09/04/24 14:16 Dose: 100 mg Hydroxyzine HCl (Hydroxyzine Hcl 50 Mg Tablet) 100 mg PO TID PRN PRN Reason: anxiety Last Admin: 09/04/24 10:30 Dose: 100 mg Ibuprofen (Ibuprofen 400 Mg Tablet) 400 mg PO Q6H PRN PRN Reason: Menstrual Cramps Last Admin: 09/04/24 12:38 Dose: 400 mg Magnesium Hydroxide (Milk Of Magnesia 30 Ml Oral.Susp) 30 ml PO DAILY PRN PRN Reason: Constipation Multi-Ingred Cream/Lotion/Oil/Oint (Mineral Oil/Petrolatum,White 106 Gm Tube) 1 appl TOPICAL BID PRN; Protocol PRN Reason: Dry Skin Last Admin: 09/01/24 20:50 Dose: 1 appl Nicotine (Nicotine 14 Mg Patch.Td24) 14 mg TRANSDERMA DAILY [facility] Last Admin: 09/04/24 08:40 Dose: 14 mg Nicotine Polacrilex (Nicotine Polacrilex 2 Mg Gum) 2 mg BUCCAL Q2H PRN PRN Reason: Nicotine Cravings Olanzapine (Olanzapine 10 Mg Tablet) 30 mg PO BEDTIME [facility] Last Admin: 09/03/24 21:12 Dose: 30 mg Omeprazole (Omeprazole 20 Mg Capsule.Dr) 20 mg PO BID@0630,1630 [facility] Last Admin: 09/04/24 06:20 Dose: 20 mg Ondansetron HCl (Ondansetron Odt 4 Mg Tab.Rapdis) 4 mg TRANSLINGU Q6H PRN PRN Reason: Nausea and Vomiting Polyethylene Glycol (Polyethylene Glycol 3350 17 Gm Powd.Pack) 17 gm PO DAILY PRN PRN Reason: Constipation Prazosin HCl (Prazosin Hcl 1 Mg Capsule) 2 mg PO BEDTIME [facility]; Protocol Last Admin: 09/03/24 21:17 Dose: 2 mg Quetiapine Fumarate (Quetiapine Fumarate 50 Mg Tablet) 50 mg PO TID PRN PRN Reason: panic attack Last Admin: 09/04/24 13:04 Dose: 50 mg Sertraline HCl (Sertraline Hcl 100 Mg Tablet) 200 mg PO DAILY [facility] Last Admin: 09/04/24 08:39 Dose: 200 mg Trazodone HCl (Trazodone Hcl 50 Mg Tablet) 250 mg PO BEDTIME [facility] Last Admin: 09/03/24 21:13 Dose: 250 mg Trimethoprim/Sulfamethoxazole (Sulfamethox/Trimeth 800/160 Tablet) 1 tab PO BID [facility] Last Admin: 09/04/24 08:40 Dose: 1 tab Allergies Allergies Allergy/AdvReac Type Severity Reaction Status Date / Time almond Allergy Severe Anaphylaxis Verified 08/31/24 07:22 Penicillins Allergy Severe Anaphylaxis Verified 08/31/24 07:22 shrimp Allergy Severe Anaphylaxis Verified 08/31/24 07:22 peanuts Allergy Severe Anaphylaxis Uncoded 08/31/24 07:22 Assessment & Plan Assessment & Plan (1) MDD (major depressive disorder), recurrent episode: Status: Acute Code(s): F33.9 - Major depressive disorder, recurrent, unspecified (2) PTSD (post-traumatic stress disorder): Status: Acute Code(s): F43.10 - Post-traumatic stress disorder, unspecified (3) Cocaine use disorder: Status: Acute Code(s): F14.10 - Cocaine abuse, uncomplicated Plan Patient is a 38-year-old female with history of MDD, PTSD and cocaine use disorder who self presented to [facility] reporting that she smoked marijuana 2 days ago and believes it was laced with cocaine which has resulted in her feeling depressed with suicidal ideation. Plan: CV 15 minute safety checks Continue home medication Obtain collateral Encourage groups Discharge planning 09/02: Active on unit. social with peers. attending groups. medication compliant. Patient continues to report feeling anxious and depressed today; pt stated, I tried calling my and when I spoke to him he told me I can't go back home . She reports suicidal ideation with no plan. +AH telling her to harm herself. Pt reports not sleeping well d/t nightmares; discussed Prazosin; start: Prazosin 1mg PO bedtime. 09/03: Reports passive SI, wanting to self harm with a fork. Safety tray ordered. Reports Prazosin needs to increase as she reports taking 8 mg by history-we increased to 2 mg. Ibuprofen prn for menstrual cramping. 09/04: Active on unit, attending groups. Continues anxious regarding returning home and wanting her to leave. Pt stated, he told me I have until October to move out. I just want my own place . Pt reports she plans on contacting [employer] to find housing. Continues to reports suicidal ideation with no plan. Patient educated on: diagnosis and medication risk/benefits Reason for continued inpatient stay Substantial Risk for: harm to self and med/psych decompensation Time Spent With Patient Time: Total time managing care of this patient today _20___ minutes.
[2024-09-04 20:00] VITALS: BP 111/58; PULSE 82; RESP 16; TEMP 36.5; O2SAT 98
[2024-09-04] MEDS: traZODone HCL 50 MG TABLET 250 MG PO (20:31)
[2024-09-04 20:32] VITALS: BP 134/80
[2024-09-04] MEDS: OLANZapine 10 MG TABLET 30 MG PO (20:32)
[2024-09-04] MEDS: Prazosin HCL 1 MG CAPSULE 2 MG PO (20:32)
[2024-09-05] MEDS: Omeprazole 20 MG CAPSULE.DR PO ×2 (06:13→16:46)
[2024-09-05 08:00] VITALS: BP 114/64; PULSE 95; TEMP 36.9; O2SAT 96
--- NOTE | 2024-09-05 09:00 | HO.PSYCHPN ---
Subjective Subjective Date of Service: 09/05/24 Reason For Visit: Crisis Interim History: Active on unit, attending groups. Remains anxious about her living situation. Says she is not feeling ready to be discharged. Says is still anxious. Says she has bad dreams and sees shadows. Continues to reports suicidal ideation with no plan. Review of Systems Review of Systems menses, cramping Yes all other systems are reviewed and are negative Mental Status Exam Mental Status Exam Narrative: Pt is alert and oriented; behavior is cooperative and calm; dressed in casual attire; mood is described as depressed and anxious ; eye contact appropriate; Speech is normal rate, volume and not pressured; thought process is organized and goal directed; Thought content is on tx; HI/VH/VH not expressed. Patient reports suicidal ideation with no plan. Patient Appearance: Fatigued Patient Orientation: Person, Place, Time and Situation Level of Consciousness: Alert Patient Behavior: Talkative and Good Eye Contact Mood Description: Depressed Affect Description: Flat Patient Cognition Impaired: No Ability to Follow Directions: Good Speech Pattern: Spontaneous Speech and Soft-Spoken Memory Description: Intact Diagnostics Vital Signs (24Hr): Vital Signs - 24 hr 09/04/24 20:00 09/04/24 20:32 09/05/24 08:00 Temperature 97.7 F 98.4 F Pulse Rate 82 95 Respiratory Rate 16 Blood Pressure 111/58 L 134/80 114/64 Pulse Oximetry 98 96 Oxygen Delivery Method Room Air Room Air BMI result Body Mass Index 35.5 Labs 08/31/24 07:58 08/31/24 19:39 Imaging Radiology Impressions: ITS Impressions Abdomen/Pelvis CT 08/31/24 13:19 IMPRESSION: Consider mild enterocolitis in the correct clinical settings. Subcentimeter hypodensity right hepatic lobe. Spondylosis L4-5 and L5-S1. Fleischner guidelines were followed. Electronically signed by: Kali Lowery MD 08/31/2024 01:48 PM EDT Medications Medications Current Medications Acetaminophen (Acetaminophen 325 Mg Tablet) 650 mg PO Q6H PRN PRN Reason: Headache/Pain, Scale 1-10 Last Admin: 09/03/24 09:52 Dose: 650 mg Al Hydroxide/Mg Hydroxide (Magnesium Hydrox/Alum Hydrox 30 Ml Oral.Susp) 30 ml PO Q6H PRN PRN Reason: Heartburn/Nausea Last Admin: 09/04/24 11:39 Dose: 30 ml Albuterol Sulfate (Albuterol Sulfate 90 Mcg 8 Gm Inhaler) 1 puff INHALE RQ4H PRN PRN Reason: Wheezing Benztropine Mesylate (Benztropine Mesylate 0.5 Mg Tablet) 0.5 mg PO BID [facility] Last Admin: 09/04/24 20:32 Dose: 0.5 mg Capsaicin (Capsaicin 0.025% Cream 60 Gm Tube) 1 appl TOPICAL QID PRN; Protocol PRN Reason: muscle aches Clonazepam (Clonazepam 1 Mg Tablet) 2 mg PO DAILY PRN PRN Reason: 2 hours prior to anxiety provoking event Last Admin: 09/04/24 13:04 Dose: 2 mg Docusate Sodium (Docusate Sodium 100 Mg Capsule) 100 mg PO BID [facility] Last Admin: 09/04/24 20:32 Dose: 100 mg Fluticasone Propionate (Fluticasone Propionate 100 Mcg Blst.W.Dev) 1 puff INHALE RBID [facility] Last Admin: 09/04/24 20:38 Dose: Not Given Fluticasone Propionate (Fluticasone Propionate Nasal 16 Gm [place]) 1 spray NOSTRIL-L BID [facility] Last Admin: 09/04/24 20:38 Dose: Not Given Gabapentin (Gabapentin 100 Mg Capsule) 100 mg PO TID [facility] Last Admin: 09/04/24 20:33 Dose: 100 mg Hydroxyzine HCl (Hydroxyzine Hcl 50 Mg Tablet) 100 mg PO TID PRN PRN Reason: anxiety Last Admin: 09/04/24 16:24 Dose: 100 mg Ibuprofen (Ibuprofen 400 Mg Tablet) 400 mg PO Q6H PRN PRN Reason: Menstrual Cramps Last Admin: 09/04/24 12:38 Dose: 400 mg Magnesium Hydroxide (Milk Of Magnesia 30 Ml Oral.Susp) 30 ml PO DAILY PRN PRN Reason: Constipation Multi-Ingred Cream/Lotion/Oil/Oint (Mineral Oil/Petrolatum,White 106 Gm Tube) 1 appl TOPICAL BID PRN; Protocol PRN Reason: Dry Skin Last Admin: 09/01/24 20:50 Dose: 1 appl Nicotine (Nicotine 14 Mg Patch.Td24) 14 mg TRANSDERMA DAILY [facility] Last Admin: 09/04/24 08:40 Dose: 14 mg Nicotine Polacrilex (Nicotine Polacrilex 2 Mg Gum) 2 mg BUCCAL Q2H PRN PRN Reason: Nicotine Cravings Olanzapine (Olanzapine 10 Mg Tablet) 30 mg PO BEDTIME [facility] Last Admin: 09/04/24 20:32 Dose: 30 mg Omeprazole (Omeprazole 20 Mg Capsule.Dr) 20 mg PO BID@0630,1630 [facility] Last Admin: 09/05/24 06:13 Dose: 20 mg Ondansetron HCl (Ondansetron Odt 4 Mg Tab.Rapdis) 4 mg TRANSLINGU Q6H PRN PRN Reason: Nausea and Vomiting Polyethylene Glycol (Polyethylene Glycol 3350 17 Gm Powd.Pack) 17 gm PO DAILY PRN PRN Reason: Constipation Prazosin HCl (Prazosin Hcl 1 Mg Capsule) 2 mg PO BEDTIME [facility]; Protocol Last Admin: 09/04/24 20:32 Dose: 2 mg Quetiapine Fumarate (Quetiapine Fumarate 50 Mg Tablet) 50 mg PO TID PRN PRN Reason: panic attack Last Admin: 09/04/24 20:32 Dose: 50 mg Sertraline HCl (Sertraline Hcl 100 Mg Tablet) 200 mg PO DAILY [facility] Last Admin: 09/04/24 08:39 Dose: 200 mg Trazodone HCl (Trazodone Hcl 50 Mg Tablet) 250 mg PO BEDTIME [facility] Last Admin: 09/04/24 20:31 Dose: 250 mg Trimethoprim/Sulfamethoxazole (Sulfamethox/Trimeth 800/160 Tablet) 1 tab PO BID [facility] Last Admin: 09/04/24 20:33 Dose: 1 tab Allergies Allergies Allergy/AdvReac Type Severity Reaction Status Date / Time almond Allergy Severe Anaphylaxis Verified 08/31/24 07:22 Penicillins Allergy Severe Anaphylaxis Verified 08/31/24 07:22 shrimp Allergy Severe Anaphylaxis Verified 08/31/24 07:22 peanuts Allergy Severe Anaphylaxis Uncoded 08/31/24 07:22 Assessment & Plan Assessment & Plan (1) MDD (major depressive disorder), recurrent episode: Status: Acute Code(s): F33.9 - Major depressive disorder, recurrent, unspecified (2) PTSD (post-traumatic stress disorder): Status: Acute Code(s): F43.10 - Post-traumatic stress disorder, unspecified (3) Cocaine use disorder: Status: Acute Code(s): F14.10 - Cocaine abuse, uncomplicated Plan Patient is a 38-year-old female with history of MDD, PTSD and cocaine use disorder who self presented to [facility] reporting that she smoked marijuana 2 days ago and believes it was laced with cocaine which has resulted in her feeling depressed with suicidal ideation. Plan: CV 15 minute safety checks Continue home medication Obtain collateral Encourage groups Discharge planning 09/02: Active on unit. social with peers. attending groups. medication compliant. Patient continues to report feeling anxious and depressed today; pt stated, I tried calling my and when I spoke to him he told me I can't go back home . She reports suicidal ideation with no plan. +AH telling her to harm herself. Pt reports not sleeping well d/t nightmares; discussed Prazosin; start: Prazosin 1mg PO bedtime. 09/03: Reports passive SI, wanting to self harm with a fork. Safety tray ordered. Reports Prazosin needs to increase as she reports taking 8 mg by history-we increased to 2 mg. Ibuprofen prn for menstrual cramping. 09/04: Active on unit, attending groups. Continues anxious regarding returning home and wanting her to leave. Pt stated, he told me I have until October to move out. I just want my own place . Pt reports she plans on contacting [employer] to find housing. Continues to reports suicidal ideation with no plan. 09/05: Increase Prazosin 3 mg HS. Reason for continued inpatient stay Substantial Risk for: harm to self, inability to function and rapid decompensation Time Spent With Patient Time: Total time managing care of this patient today ____ minutes.
[2024-09-05] MEDS: Fluticasone Propionate 100 MCG BLST.W.DEV 1 PUFF INHALE ×2 (09:23→21:39)
[2024-09-05] MEDS: Fluticasone Propionate Nasal 16 GM SPRAY 1 SPRAY NOSTRIL-L ×2 (09:23→21:38)
[2024-09-05] MEDS: Docusate Sodium 100 MG CAPSULE PO ×2 (09:24→21:40)
[2024-09-05] MEDS: Sulfamethox/Trimeth 800/160 TABLET 1 TAB PO ×2 (09:24→21:41)
[2024-09-05] MEDS: Sertraline HCL 100 MG TABLET 200 MG PO (09:24)
[2024-09-05] MEDS: Gabapentin 100 MG CAPSULE PO ×3 (09:24→21:40)
[2024-09-05] MEDS: Benztropine Mesylate 0.5 MG TABLET PO ×2 (09:25→21:41)
[2024-09-05] MEDS: Nicotine 14 MG PATCH.TD24 TRANSDERMA (09:26)
[2024-09-05] MEDS: Magnesium Hydrox/Alum Hydrox 30 ML ORAL.SUSP PO (09:29)
[2024-09-05] MEDS: QUEtiapine Fumarate 50 MG TABLET PO ×2 (10:57→21:41)
[2024-09-05] MEDS: Acetaminophen 325 MG TABLET 650 MG PO (12:34)
[2024-09-05] MEDS: hydrOXYzine HCL 50 MG TABLET 100 MG PO ×2 (12:37→21:41)
[2024-09-05 20:00] VITALS: BP 113/56; PULSE 75; RESP 16; TEMP 36.4; O2SAT 95
[2024-09-05] MEDS: traZODone HCL 50 MG TABLET 250 MG PO (21:39)
[2024-09-05 21:40] VITALS: BP 113/56
[2024-09-05] MEDS: OLANZapine 10 MG TABLET 30 MG PO (21:40)
[2024-09-05] MEDS: Prazosin HCL 1 MG CAPSULE 3 MG PO (21:40)
[2024-09-05] MEDS: clonazePAM 1 MG TABLET 2 MG PO (21:41)
[2024-09-06] MEDS: QUEtiapine Fumarate 50 MG TABLET PO ×4 (00:40→21:26)
[2024-09-06] MEDS: Omeprazole 20 MG CAPSULE.DR PO ×2 (06:23→16:37)
[2024-09-06] MEDS: hydrOXYzine HCL 50 MG TABLET 100 MG PO ×2 (06:29→16:36)
[2024-09-06 08:00] VITALS: PULSE 96; RESP 14; TEMP 36.8; O2SAT 98
[2024-09-06] MEDS: Fluticasone Propionate 100 MCG BLST.W.DEV 1 PUFF INHALE ×2 (08:41→21:18)
[2024-09-06] MEDS: Fluticasone Propionate Nasal 16 GM SPRAY 1 SPRAY NOSTRIL-L ×2 (08:41→21:17)
[2024-09-06] MEDS: Mineral Oil/Petrolatum,White 106 GM Tube 1 APPL TOPICAL ×2 (08:42→15:12)
[2024-09-06] MEDS: Sertraline HCL 100 MG TABLET 200 MG PO (08:45)
[2024-09-06] MEDS: Gabapentin 100 MG CAPSULE PO ×3 (08:46→21:15)
[2024-09-06] MEDS: Docusate Sodium 100 MG CAPSULE PO ×2 (08:46→21:17)
[2024-09-06] MEDS: Benztropine Mesylate 0.5 MG TABLET PO ×2 (08:46→21:15)
[2024-09-06] MEDS: Sulfamethox/Trimeth 800/160 TABLET 1 TAB PO ×2 (08:46→21:16)
[2024-09-06] MEDS: Nicotine 14 MG PATCH.TD24 TRANSDERMA (09:03)
[2024-09-06] MEDS: Acetaminophen 325 MG TABLET 650 MG PO (10:43)
--- NOTE | 2024-09-06 12:11 | HO.PSYCHPN ---
Subjective Subjective Date of Service: 09/06/24 Reason For Visit: Crisis Interim History: Active on unit, attending groups. Says she is feeling so so. . Sleep was disrupted last night. Remains anxious. Mood remains sad. Engaged when talking with roommate. Remains anxious about her living situation. Says she is not feeling ready to be discharged. No active SI. Review of Systems Review of Systems menses, cramping Yes all other systems are reviewed and are negative Mental Status Exam Mental Status Exam Narrative: Pt is alert and oriented; behavior is cooperative and calm; dressed in casual attire; mood is described as depressed and anxious ; eye contact appropriate; Speech is normal rate, volume and not pressured; thought process is organized and goal directed; Thought content is on tx; HI/VH/VH not expressed. Patient reports suicidal ideation with no plan. Patient Appearance: Fatigued Patient Orientation: Person, Place, Time and Situation Level of Consciousness: Alert Patient Behavior: Talkative and Good Eye Contact Mood Description: Depressed Affect Description: Flat Patient Cognition Impaired: No Ability to Follow Directions: Good Speech Pattern: Spontaneous Speech and Soft-Spoken Memory Description: Intact Diagnostics Vital Signs (24Hr): Vital Signs - 24 hr 09/05/24 20:00 09/05/24 21:40 09/06/24 08:00 Temperature 97.6 F 98.2 F Pulse Rate 75 96 Respiratory Rate 16 14 Blood Pressure 113/56 L 113/56 L Pulse Oximetry 95 98 Oxygen Delivery Method Room Air Room Air BMI result Body Mass Index 35.5 Labs 08/31/24 07:58 08/31/24 19:39 Imaging Radiology Impressions: ITS Impressions Abdomen/Pelvis CT 08/31/24 13:19 IMPRESSION: Consider mild enterocolitis in the correct clinical settings. Subcentimeter hypodensity right hepatic lobe. Spondylosis L4-5 and L5-S1. Fleischner guidelines were followed. Electronically signed by: Kali Lowery MD 08/31/2024 01:48 PM EDT Medications Medications Current Medications Acetaminophen (Acetaminophen 325 Mg Tablet) 650 mg PO Q6H PRN PRN Reason: Headache/Pain, Scale 1-10 Last Admin: 09/06/24 10:43 Dose: 650 mg Al Hydroxide/Mg Hydroxide (Magnesium Hydrox/Alum Hydrox 30 Ml Oral.Susp) 30 ml PO Q6H PRN PRN Reason: Heartburn/Nausea Last Admin: 09/05/24 09:29 Dose: 30 ml Albuterol Sulfate (Albuterol Sulfate 90 Mcg 8 Gm Inhaler) 1 puff INHALE RQ4H PRN PRN Reason: Wheezing Benztropine Mesylate (Benztropine Mesylate 0.5 Mg Tablet) 0.5 mg PO BID [facility] Last Admin: 09/06/24 08:46 Dose: 0.5 mg Capsaicin (Capsaicin 0.025% Cream 60 Gm Tube) 1 appl TOPICAL QID PRN; Protocol PRN Reason: muscle aches Clonazepam (Clonazepam 1 Mg Tablet) 2 mg PO DAILY PRN PRN Reason: 2 hours prior to anxiety provoking event Last Admin: 09/05/24 21:41 Dose: 2 mg Docusate Sodium (Docusate Sodium 100 Mg Capsule) 100 mg PO BID [facility] Last Admin: 09/06/24 08:46 Dose: 100 mg Fluticasone Propionate (Fluticasone Propionate 100 Mcg Blst.W.Dev) 1 puff INHALE RBID [facility] Last Admin: 09/06/24 08:41 Dose: 1 puff Fluticasone Propionate (Fluticasone Propionate Nasal 16 Gm [place]) 1 spray NOSTRIL-L BID [facility] Last Admin: 09/06/24 08:41 Dose: 1 spray Gabapentin (Gabapentin 100 Mg Capsule) 100 mg PO TID [facility] Last Admin: 09/06/24 08:46 Dose: 100 mg Hydroxyzine HCl (Hydroxyzine Hcl 50 Mg Tablet) 100 mg PO TID PRN PRN Reason: anxiety Last Admin: 09/06/24 06:29 Dose: 100 mg Ibuprofen (Ibuprofen 400 Mg Tablet) 400 mg PO Q6H PRN PRN Reason: Menstrual Cramps Last Admin: 09/04/24 12:38 Dose: 400 mg Magnesium Hydroxide (Milk Of Magnesia 30 Ml Oral.Susp) 30 ml PO DAILY PRN PRN Reason: Constipation Multi-Ingred Cream/Lotion/Oil/Oint (Mineral Oil/Petrolatum,White 106 Gm Tube) 1 appl TOPICAL BID PRN; Protocol PRN Reason: Dry Skin Last Admin: 09/06/24 08:42 Dose: 1 appl Multi-Ingred Cream/Lotion/Oil/Oint (Mineral Oil/Petrolatum,White 106 Gm Tube) 1 appl TOPICAL BID PRN; Protocol PRN Reason: Dryness Nicotine (Nicotine 14 Mg Patch.Td24) 14 mg TRANSDERMA DAILY [facility] Last Admin: 09/06/24 09:03 Dose: 14 mg Nicotine Polacrilex (Nicotine Polacrilex 2 Mg Gum) 2 mg BUCCAL Q2H PRN PRN Reason: Nicotine Cravings Olanzapine (Olanzapine 10 Mg Tablet) 30 mg PO BEDTIME [facility] Last Admin: 09/05/24 21:40 Dose: 30 mg Omeprazole (Omeprazole 20 Mg Capsule.Dr) 20 mg PO BID@0630,1630 [facility] Last Admin: 09/06/24 06:23 Dose: 20 mg Ondansetron HCl (Ondansetron Odt 4 Mg Tab.Rapdis) 4 mg TRANSLINGU Q6H PRN PRN Reason: Nausea and Vomiting Polyethylene Glycol (Polyethylene Glycol 3350 17 Gm Powd.Pack) 17 gm PO DAILY PRN PRN Reason: Constipation Prazosin HCl (Prazosin Hcl 1 Mg Capsule) 3 mg PO BEDTIME [facility]; Protocol Last Admin: 09/05/24 21:40 Dose: 3 mg Quetiapine Fumarate (Quetiapine Fumarate 50 Mg Tablet) 50 mg PO TID PRN PRN Reason: panic attack Last Admin: 09/06/24 08:48 Dose: 50 mg Sertraline HCl (Sertraline Hcl 100 Mg Tablet) 200 mg PO DAILY [facility] Last Admin: 09/06/24 08:45 Dose: 200 mg Trazodone HCl (Trazodone Hcl 50 Mg Tablet) 250 mg PO BEDTIME [facility] Last Admin: 09/05/24 21:39 Dose: 250 mg Trimethoprim/Sulfamethoxazole (Sulfamethox/Trimeth 800/160 Tablet) 1 tab PO BID [facility] Last Admin: 09/06/24 08:46 Dose: 1 tab Allergies Allergies Allergy/AdvReac Type Severity Reaction Status Date / Time almond Allergy Severe Anaphylaxis Verified 08/31/24 07:22 Penicillins Allergy Severe Anaphylaxis Verified 08/31/24 07:22 shrimp Allergy Severe Anaphylaxis Verified 08/31/24 07:22 peanuts Allergy Severe Anaphylaxis Uncoded 08/31/24 07:22 Assessment & Plan Assessment & Plan (1) MDD (major depressive disorder), recurrent episode: Status: Acute Code(s): F33.9 - Major depressive disorder, recurrent, unspecified (2) PTSD (post-traumatic stress disorder): Status: Acute Code(s): F43.10 - Post-traumatic stress disorder, unspecified (3) Cocaine use disorder: Status: Acute Code(s): F14.10 - Cocaine abuse, uncomplicated Plan Patient is a 38-year-old female with history of MDD, PTSD and cocaine use disorder who self presented to [facility] reporting that she smoked marijuana 2 days ago and believes it was laced with cocaine which has resulted in her feeling depressed with suicidal ideation. Plan: CV 15 minute safety checks Continue home medication Obtain collateral Encourage groups Discharge planning 09/02: Active on unit. social with peers. attending groups. medication compliant. Patient continues to report feeling anxious and depressed today; pt stated, I tried calling my and when I spoke to him he told me I can't go back home . She reports suicidal ideation with no plan. +AH telling her to harm herself. Pt reports not sleeping well d/t nightmares; discussed Prazosin; start: Prazosin 1mg PO bedtime. 09/03: Reports passive SI, wanting to self harm with a fork. Safety tray ordered. Reports Prazosin needs to increase as she reports taking 8 mg by history-we increased to 2 mg. Ibuprofen prn for menstrual cramping. 09/04: Active on unit, attending groups. Continues anxious regarding returning home and wanting her to leave. Pt stated, he told me I have until October to move out. I just want my own place . Pt reports she plans on contacting [employer] to find housing. Continues to reports suicidal ideation with no plan. 09/05: Increase Prazosin 3 mg HS. 09/06: Increase Prazosin to 5 mg HS. Continue current management and treatment plan. Reason for continued inpatient stay Substantial Risk for: harm to self, inability to function and rapid decompensation Time Spent With Patient Time: Total time managing care of this patient today ____ minutes.
[2024-09-06 21:00] VITALS: BP 109/60; PULSE 79; RESP 18; TEMP 36.6; O2SAT 95
[2024-09-06] MEDS: traZODone HCL 50 MG TABLET 250 MG PO (21:14)
[2024-09-06] MEDS: OLANZapine 10 MG TABLET 30 MG PO (21:15)
[2024-09-06 21:16] VITALS: BP 109/58
[2024-09-06] MEDS: Prazosin HCL 5 MG CAPSULE PO (21:16)
[2024-09-06] MEDS: clonazePAM 1 MG TABLET 2 MG PO (21:26)
[2024-09-07] MEDS: Omeprazole 20 MG CAPSULE.DR PO ×2 (06:26→16:56)
[2024-09-07 07:49] VITALS: BP 118/59; PULSE 114; RESP 14; TEMP 36.4; O2SAT 97
[2024-09-07] MEDS: Fluticasone Propionate 100 MCG BLST.W.DEV 1 PUFF INHALE ×2 (08:27→20:20)
[2024-09-07] MEDS: Fluticasone Propionate Nasal 16 GM SPRAY 1 SPRAY NOSTRIL-L ×2 (08:27→20:20)
[2024-09-07] MEDS: Sertraline HCL 100 MG TABLET 200 MG PO (08:27)
[2024-09-07] MEDS: Benztropine Mesylate 0.5 MG TABLET PO ×2 (08:28→20:22)
[2024-09-07] MEDS: Docusate Sodium 100 MG CAPSULE PO ×2 (08:28→20:36)
[2024-09-07] MEDS: Gabapentin 100 MG CAPSULE PO ×3 (08:28→20:25)
[2024-09-07] MEDS: Sulfamethox/Trimeth 800/160 TABLET 1 TAB PO ×2 (08:29→20:22)
[2024-09-07] MEDS: Nicotine 14 MG PATCH.TD24 TRANSDERMA (08:29)
[2024-09-07] MEDS: Ibuprofen 400 MG TABLET PO (08:57)
[2024-09-07] MEDS: QUEtiapine Fumarate 50 MG TABLET PO ×2 (08:57→14:21)
[2024-09-07] MEDS: Mineral Oil/Petrolatum,White 106 GM Tube 1 APPL TOPICAL (09:40)
--- NOTE | 2024-09-07 09:41 | P.PNPSI_ITS ---
Subjective Subjective Date of Service: 09/07/24 Reason For Visit: Crisis Subjective Notes: Conditional Voluntary Interim History: Active on unit, attending groups. Continues to report feeling anxious and depressed regarding her situation. She reports suicidal ideation with no plan. +AH at times. denies HI/VH. Patient is hoping she is feeling ready to go back home by the end of the week. Medication Compliance: Yes Side effects from medications: No Attending Groups: Yes Mental Status Exam Mental Status Exam Narrative: Pt is alert and oriented; behavior is cooperative and calm; dressed in casual attire; mood is described as depressed and anxious ; eye contact appropriate; Speech is normal rate, volume and not pressured; thought process is organized; Thought content is on tx; HI/VH. Patient reports suicidal ideation with no plan. +AH that comes and goes Diagnostics Vital Signs (24Hr): Vital Signs - 24 hr 09/06/24 21:00 09/06/24 21:16 09/07/24 07:49 Temperature 98 F 97.6 F Pulse Rate 79 114 H Respiratory Rate 18 14 Blood Pressure 109/60 109/58 L 118/59 L Pulse Oximetry 95 97 Oxygen Delivery Method Room Air Room Air BMI result Body Mass Index 35.5 Labs 08/31/24 07:58 08/31/24 19:39 Imaging Radiology Impressions: ITS Impressions Abdomen/Pelvis CT 08/31/24 13:19 IMPRESSION: Consider mild enterocolitis in the correct clinical settings. Subcentimeter hypodensity right hepatic lobe. Spondylosis L4-5 and L5-S1. Fleischner guidelines were followed. Electronically signed by: Kali Lowery MD 08/31/2024 01:48 PM EDT Medications Medications Current Medications Acetaminophen (Acetaminophen 325 Mg Tablet) 650 mg PO Q6H PRN PRN Reason: Headache/Pain, Scale 1-10 Last Admin: 09/06/24 10:43 Dose: 650 mg Al Hydroxide/Mg Hydroxide (Magnesium Hydrox/Alum Hydrox 30 Ml Oral.Susp) 30 ml PO Q6H PRN PRN Reason: Heartburn/Nausea Last Admin: 09/05/24 09:29 Dose: 30 ml Albuterol Sulfate (Albuterol Sulfate 90 Mcg 8 Gm Inhaler) 1 puff INHALE RQ4H PRN PRN Reason: Wheezing Benztropine Mesylate (Benztropine Mesylate 0.5 Mg Tablet) 0.5 mg PO BID [facility] Last Admin: 09/07/24 08:28 Dose: 0.5 mg Capsaicin (Capsaicin 0.025% Cream 60 Gm Tube) 1 appl TOPICAL QID PRN; Protocol PRN Reason: muscle aches Clonazepam (Clonazepam 1 Mg Tablet) 2 mg PO DAILY PRN PRN Reason: 2 hours prior to anxiety provoking event Last Admin: 09/06/24 21:26 Dose: 2 mg Docusate Sodium (Docusate Sodium 100 Mg Capsule) 100 mg PO BID [facility] Last Admin: 09/07/24 08:28 Dose: 100 mg Fluticasone Propionate (Fluticasone Propionate 100 Mcg Blst.W.Dev) 1 puff INHALE RBID [facility] Last Admin: 09/07/24 08:27 Dose: 1 puff Fluticasone Propionate (Fluticasone Propionate Nasal 16 Gm [place]) 1 spray NOSTRIL-L BID [facility] Last Admin: 09/07/24 08:27 Dose: 1 spray Gabapentin (Gabapentin 100 Mg Capsule) 100 mg PO TID [facility] Last Admin: 09/07/24 08:28 Dose: 100 mg Hydroxyzine HCl (Hydroxyzine Hcl 50 Mg Tablet) 100 mg PO TID PRN PRN Reason: anxiety Last Admin: 09/06/24 16:36 Dose: 100 mg Ibuprofen (Ibuprofen 400 Mg Tablet) 400 mg PO Q6H PRN PRN Reason: Menstrual Cramps Last Admin: 09/07/24 08:57 Dose: 400 mg Magnesium Hydroxide (Milk Of Magnesia 30 Ml Oral.Susp) 30 ml PO DAILY PRN PRN Reason: Constipation Multi-Ingred Cream/Lotion/Oil/Oint (Mineral Oil/Petrolatum,White 106 Gm Tube) 1 appl TOPICAL BID PRN; Protocol PRN Reason: Dry Skin Last Admin: 09/06/24 15:12 Dose: 1 appl Multi-Ingred Cream/Lotion/Oil/Oint (Mineral Oil/Petrolatum,White 106 Gm Tube) 1 appl TOPICAL BID PRN; Protocol PRN Reason: Dryness Nicotine (Nicotine 14 Mg Patch.Td24) 14 mg TRANSDERMA DAILY [facility] Last Admin: 09/07/24 08:29 Dose: 14 mg Nicotine Polacrilex (Nicotine Polacrilex 2 Mg Gum) 2 mg BUCCAL Q2H PRN PRN Reason: Nicotine Cravings Olanzapine (Olanzapine 10 Mg Tablet) 30 mg PO BEDTIME [facility] Last Admin: 09/06/24 21:15 Dose: 30 mg Omeprazole (Omeprazole 20 Mg Capsule.Dr) 20 mg PO BID@0630,1630 [facility] Last Admin: 09/07/24 06:26 Dose: 20 mg Ondansetron HCl (Ondansetron Odt 4 Mg Tab.Rapdis) 4 mg TRANSLINGU Q6H PRN PRN Reason: Nausea and Vomiting Polyethylene Glycol (Polyethylene Glycol 3350 17 Gm Powd.Pack) 17 gm PO DAILY PRN PRN Reason: Constipation Prazosin HCl (Prazosin Hcl 5 Mg Capsule) 5 mg PO BEDTIME [facility]; Protocol Last Admin: 09/06/24 21:16 Dose: 5 mg Quetiapine Fumarate (Quetiapine Fumarate 50 Mg Tablet) 50 mg PO TID PRN PRN Reason: panic attack Last Admin: 09/07/24 08:57 Dose: 50 mg Sertraline HCl (Sertraline Hcl 100 Mg Tablet) 200 mg PO DAILY [facility] Last Admin: 09/07/24 08:27 Dose: 200 mg Trazodone HCl (Trazodone Hcl 50 Mg Tablet) 250 mg PO BEDTIME [facility] Last Admin: 09/06/24 21:14 Dose: 250 mg Trimethoprim/Sulfamethoxazole (Sulfamethox/Trimeth 800/160 Tablet) 1 tab PO BID [facility] Last Admin: 09/07/24 08:29 Dose: 1 tab Allergies Allergies Allergy/AdvReac Type Severity Reaction Status Date / Time almond Allergy Severe Anaphylaxis Verified 08/31/24 07:22 Penicillins Allergy Severe Anaphylaxis Verified 08/31/24 07:22 shrimp Allergy Severe Anaphylaxis Verified 08/31/24 07:22 peanuts Allergy Severe Anaphylaxis Uncoded 08/31/24 07:22 Assessment & Plan Assessment & Plan (1) MDD (major depressive disorder), recurrent episode: Status: Acute Code(s): F33.9 - Major depressive disorder, recurrent, unspecified (2) PTSD (post-traumatic stress disorder): Status: Acute Code(s): F43.10 - Post-traumatic stress disorder, unspecified (3) Cocaine use disorder: Status: Acute Code(s): F14.10 - Cocaine abuse, uncomplicated Plan Patient is a 38-year-old female with history of MDD, PTSD and cocaine use disorder who self presented to [facility] reporting that she smoked marijuana 2 days ago and believes it was laced with cocaine which has resulted in her feeling depressed with suicidal ideation. Plan: CV 15 minute safety checks Continue home medication Obtain collateral Encourage groups Discharge planning 09/02: Active on unit. social with peers. attending groups. medication compliant. Patient continues to report feeling anxious and depressed today; pt stated, I tried calling my and when I spoke to him he told me I can't go back home . She reports suicidal ideation with no plan. +AH telling her to harm herself. Pt reports not sleeping well d/t nightmares; discussed Prazosin; start: Prazosin 1mg PO bedtime. 09/03: Reports passive SI, wanting to self harm with a fork. Safety tray ordered. Reports Prazosin needs to increase as she reports taking 8 mg by history-we increased to 2 mg. Ibuprofen prn for menstrual cramping. 09/04: Active on unit, attending groups. Continues anxious regarding returning home and wanting her to leave. Pt stated, he told me I have until October to move out. I just want my own place . Pt reports she plans on contacting [employer] to find housing. Continues to reports suicidal ideation with no plan. 09/05: Increase Prazosin 3 mg HS. 09/06: Increase Prazosin to 5 mg HS. Continue current management and treatment plan. 09/07: Continues to report feeling anxious and depressed regarding her situation. She reports suicidal ideation with no plan. +AH at times. denies HI/VH. Patient is hoping she is feeling ready to go back home by the end of the week. added zyprexa 5mg PO BID PRN Patient educated on: diagnosis, medication risk/benefits and therapeutic strategies Reason for continued inpatient stay Substantial Risk for: med/psych decompensation Time Spent With Patient Time: Total time managing care of this patient today _20___ minutes.
[2024-09-07] MEDS: Lidocaine 4 % Patch ADH..PATCH 1 PATCH TRANSDERMA (11:56)
[2024-09-07] MEDS: hydrOXYzine HCL 50 MG TABLET 100 MG PO (12:29)
[2024-09-07] MEDS: Magnesium Hydrox/Alum Hydrox 30 ML ORAL.SUSP PO (15:15)
[2024-09-07] MEDS: Capsaicin 0.025% Cream 60 GM TUBE 1 APPL TOPICAL (15:16)
[2024-09-07 20:19] VITALS: BP 119/58; PULSE 88; RESP 18; TEMP 36.4; O2SAT 96
[2024-09-07] MEDS: Prazosin HCL 5 MG CAPSULE PO (20:22)
[2024-09-07] MEDS: traZODone HCL 50 MG TABLET 250 MG PO (20:22)
[2024-09-07] MEDS: OLANZapine 10 MG TABLET 30 MG PO (20:23)
[2024-09-08] MEDS: Omeprazole 20 MG CAPSULE.DR PO ×2 (06:23→16:40)
[2024-09-08 08:00] VITALS: BP 111/75; PULSE 99; RESP 16; TEMP 37.1; O2SAT 96
[2024-09-08] MEDS: Sertraline HCL 100 MG TABLET 200 MG PO (08:33)
[2024-09-08] MEDS: Sulfamethox/Trimeth 800/160 TABLET 1 TAB PO ×2 (08:33→21:00)
[2024-09-08] MEDS: Gabapentin 100 MG CAPSULE PO ×3 (08:33→21:00)
[2024-09-08] MEDS: QUEtiapine Fumarate 50 MG TABLET PO (08:33)
[2024-09-08] MEDS: Benztropine Mesylate 0.5 MG TABLET PO ×2 (08:34→21:00)
[2024-09-08] MEDS: Docusate Sodium 100 MG CAPSULE PO ×2 (08:34→21:00)
[2024-09-08] MEDS: Capsaicin 0.025% Cream 60 GM TUBE 1 APPL TOPICAL (08:34)
[2024-09-08] MEDS: hydrOXYzine HCL 50 MG TABLET 100 MG PO (08:34)
[2024-09-08] MEDS: Mineral Oil/Petrolatum,White 106 GM Tube 1 APPL TOPICAL (08:35)
[2024-09-08] MEDS: Fluticasone Propionate 100 MCG BLST.W.DEV 1 PUFF INHALE ×2 (08:36→20:58)
[2024-09-08] MEDS: Lidocaine 4 % Patch ADH..PATCH 1 PATCH TRANSDERMA (08:37)
[2024-09-08] MEDS: Nicotine 14 MG PATCH.TD24 TRANSDERMA (08:37)
[2024-09-08] MEDS: clonazePAM 1 MG TABLET 2 MG PO (08:44)
[2024-09-08] MEDS: Fluticasone Propionate Nasal 16 GM SPRAY 1 SPRAY NOSTRIL-L ×2 (08:48→20:59)
--- NOTE | 2024-09-08 09:29 | P.PNPSI_ITS ---
Subjective Subjective Date of Service: 09/08/24 Reason For Visit: Crisis Subjective Notes: Conditional Voluntary Interim History: Pt reports feeling irritable d/t getting into an argument with her partner on the phone. She reports sleeping well last night. denies SI/HI/VH. Continues to report auditory hallucinations at times; pt stated, one tells me to do something good and another tells me something bad . Continue current tx plan. Medication Compliance: Yes Side effects from medications: No Attending Groups: Intermittent Mental Status Exam Mental Status Exam Narrative: Pt is alert and oriented; behavior is cooperative and calm; dressed in casual attire; mood is described as irritable ; eye contact appropriate; Speech is normal rate, volume and not pressured; thought process is organized; Thought content is on tx; denies SI/HI/VH. +AH that comes and goes Diagnostics Vital Signs (24Hr): Vital Signs - 24 hr 09/07/24 20:19 09/08/24 08:00 Temperature 97.6 F 98.7 F Pulse Rate 88 99 Respiratory Rate 18 16 Blood Pressure 119/58 L 111/75 Pulse Oximetry 96 96 Oxygen Delivery Method Room Air Room Air BMI result Body Mass Index 35.5 Labs 08/31/24 07:58 08/31/24 19:39 Imaging Radiology Impressions: ITS Impressions Abdomen/Pelvis CT 08/31/24 13:19 IMPRESSION: Consider mild enterocolitis in the correct clinical settings. Subcentimeter hypodensity right hepatic lobe. Spondylosis L4-5 and L5-S1. Fleischner guidelines were followed. Electronically signed by: Kali Lowery MD 08/31/2024 01:48 PM EDT Medications Medications Current Medications Acetaminophen (Acetaminophen 325 Mg Tablet) 650 mg PO Q6H PRN PRN Reason: Headache/Pain, Scale 1-10 Last Admin: 09/06/24 10:43 Dose: 650 mg Al Hydroxide/Mg Hydroxide (Magnesium Hydrox/Alum Hydrox 30 Ml Oral.Susp) 30 ml PO Q6H PRN PRN Reason: Heartburn/Nausea Last Admin: 09/07/24 15:15 Dose: 30 ml Albuterol Sulfate (Albuterol Sulfate 90 Mcg 8 Gm Inhaler) 1 puff INHALE RQ4H PRN PRN Reason: Wheezing Benztropine Mesylate (Benztropine Mesylate 0.5 Mg Tablet) 0.5 mg PO BID [facility] Last Admin: 09/08/24 08:34 Dose: 0.5 mg Capsaicin (Capsaicin 0.025% Cream 60 Gm Tube) 1 appl TOPICAL QID PRN; Protocol PRN Reason: muscle aches Last Admin: 09/08/24 08:34 Dose: 1 appl Clonazepam (Clonazepam 1 Mg Tablet) 2 mg PO DAILY PRN PRN Reason: 2 hours prior to anxiety provoking event Last Admin: 09/08/24 08:44 Dose: 2 mg Docusate Sodium (Docusate Sodium 100 Mg Capsule) 100 mg PO BID [facility] Last Admin: 09/08/24 08:34 Dose: 100 mg Fluticasone Propionate (Fluticasone Propionate 100 Mcg Blst.W.Dev) 1 puff INHALE RBID [facility] Last Admin: 09/08/24 08:36 Dose: 1 puff Fluticasone Propionate (Fluticasone Propionate Nasal 16 Gm [place]) 1 spray NOSTRIL-L BID [facility] Last Admin: 09/08/24 08:48 Dose: 1 spray Gabapentin (Gabapentin 100 Mg Capsule) 100 mg PO TID [facility] Last Admin: 09/08/24 08:33 Dose: 100 mg Hydroxyzine HCl (Hydroxyzine Hcl 50 Mg Tablet) 100 mg PO TID PRN PRN Reason: anxiety Last Admin: 09/08/24 08:34 Dose: 100 mg Ibuprofen (Ibuprofen 400 Mg Tablet) 400 mg PO Q6H PRN PRN Reason: Pain, Moderate(Pain Scale 4-6) Lidocaine (Lidocaine 4 % Patch Adh..Patch) 1 patch TRANSDERMA DAILY [facility]; Protocol Last Admin: 09/08/24 08:37 Dose: 1 patch Magnesium Hydroxide (Milk Of Magnesia 30 Ml Oral.Susp) 30 ml PO DAILY PRN PRN Reason: Constipation Multi-Ingred Cream/Lotion/Oil/Oint (Mineral Oil/Petrolatum,White 106 Gm Tube) 1 appl TOPICAL BID PRN; Protocol PRN Reason: Dry Skin Last Admin: 09/08/24 08:35 Dose: 1 appl Nicotine (Nicotine 14 Mg Patch.Td24) 14 mg TRANSDERMA DAILY [facility] Last Admin: 09/08/24 08:37 Dose: 14 mg Nicotine Polacrilex (Nicotine Polacrilex 2 Mg Gum) 2 mg BUCCAL Q2H PRN PRN Reason: Nicotine Cravings Olanzapine (Olanzapine 10 Mg Tablet) 30 mg PO BEDTIME [facility] Last Admin: 09/07/24 20:23 Dose: 30 mg Olanzapine (Olanzapine 5 Mg Tablet) 5 mg PO BID PRN PRN Reason: Psychosis Omeprazole (Omeprazole 20 Mg Capsule.Dr) 20 mg PO BID@0630,1630 [facility] Last Admin: 09/08/24 06:23 Dose: 20 mg Ondansetron HCl (Ondansetron Odt 4 Mg Tab.Rapdis) 4 mg TRANSLINGU Q6H PRN PRN Reason: Nausea and Vomiting Polyethylene Glycol (Polyethylene Glycol 3350 17 Gm Powd.Pack) 17 gm PO DAILY PRN PRN Reason: Constipation Prazosin HCl (Prazosin Hcl 5 Mg Capsule) 5 mg PO BEDTIME [facility]; Protocol Last Admin: 09/07/24 20:22 Dose: 5 mg Quetiapine Fumarate (Quetiapine Fumarate 50 Mg Tablet) 50 mg PO TID PRN PRN Reason: panic attack Last Admin: 09/08/24 08:33 Dose: 50 mg Sertraline HCl (Sertraline Hcl 100 Mg Tablet) 200 mg PO DAILY [facility] Last Admin: 09/08/24 08:33 Dose: 200 mg Trazodone HCl (Trazodone Hcl 50 Mg Tablet) 250 mg PO BEDTIME [facility] Last Admin: 09/07/24 20:22 Dose: 250 mg Trimethoprim/Sulfamethoxazole (Sulfamethox/Trimeth 800/160 Tablet) 1 tab PO BID [facility] Last Admin: 09/08/24 08:33 Dose: 1 tab Allergies Allergies Allergy/AdvReac Type Severity Reaction Status Date / Time almond Allergy Severe Anaphylaxis Verified 08/31/24 07:22 Penicillins Allergy Severe Anaphylaxis Verified 08/31/24 07:22 shrimp Allergy Severe Anaphylaxis Verified 08/31/24 07:22 peanuts Allergy Severe Anaphylaxis Uncoded 08/31/24 07:22 Assessment & Plan Assessment & Plan (1) MDD (major depressive disorder), recurrent episode: Status: Acute Code(s): F33.9 - Major depressive disorder, recurrent, unspecified (2) PTSD (post-traumatic stress disorder): Status: Acute Code(s): F43.10 - Post-traumatic stress disorder, unspecified (3) Cocaine use disorder: Status: Acute Code(s): F14.10 - Cocaine abuse, uncomplicated Plan Patient is a 38-year-old female with history of MDD, PTSD and cocaine use disorder who self presented to [facility] reporting that she smoked marijuana 2 days ago and believes it was laced with cocaine which has resulted in her feeling depressed with suicidal ideation. Plan: CV 15 minute safety checks Continue home medication Obtain collateral Encourage groups Discharge planning 09/02: Active on unit. social with peers. attending groups. medication compliant. Patient continues to report feeling anxious and depressed today; pt stated, I tried calling my and when I spoke to him he told me I can't go back home . She reports suicidal ideation with no plan. +AH telling her to harm herself. Pt reports not sleeping well d/t nightmares; discussed Prazosin; start: Prazosin 1mg PO bedtime. 09/03: Reports passive SI, wanting to self harm with a fork. Safety tray ordered. Reports Prazosin needs to increase as she reports taking 8 mg by history-we increased to 2 mg. Ibuprofen prn for menstrual cramping. 09/04: Active on unit, attending groups. Continues anxious regarding returning home and wanting her to leave. Pt stated, he told me I have until October to move out. I just want my own place . Pt reports she plans on contacting [employer] to find housing. Continues to reports suicidal ideation with no plan. 09/05: Increase Prazosin 3 mg HS. 09/06: Increase Prazosin to 5 mg HS. Continue current management and treatment plan. 09/07: Continues to report feeling anxious and depressed regarding her situation. She reports suicidal ideation with no plan. +AH at times. denies HI/VH. Patient is hoping she is feeling ready to go back home by the end of the week. added zyprexa 5mg PO BID PRN 09/08: Pt reports feeling irritable d/t getting into an argument with her partner on the phone. She reports sleeping well last night. denies SI/HI/VH. Continues to report auditory hallucinations at times; pt stated, one tells me to do something good and another tells me something bad . Continue current tx plan. Patient educated on: diagnosis, medication risk/benefits and therapeutic strategies Reason for continued inpatient stay Substantial Risk for: med/psych decompensation Time Spent With Patient Time: Total time managing care of this patient today _20___ minutes.
[2024-09-08] MEDS: OLANZapine 5 MG TABLET PO (12:18)
[2024-09-08] MEDS: Ibuprofen 400 MG TABLET PO (12:19)
[2024-09-08] MEDS: polyethylene glycoL 3350 17 GM POWD.PACK PO (14:08)
[2024-09-08] MEDS: Milk of Magnesia 30 ML ORAL.SUSP PO (14:09)
[2024-09-08] MEDS: Flu Vacc TS2024-25(6mos up)/PF 0.5 ML SYRINGE IM (15:33)
[2024-09-08] MEDS: Acetaminophen 325 MG TABLET 650 MG PO (17:33)
[2024-09-08 20:15] VITALS: BP 119/57; PULSE 86; RESP 18; TEMP 36.9; O2SAT 86
[2024-09-08] MEDS: Albuterol Sulfate 90 MCG 8 GM INHALER 1 PUFF INHALE (20:48)
[2024-09-08 20:59] VITALS: BP 119/57
[2024-09-08] MEDS: Prazosin HCL 5 MG CAPSULE PO (20:59)
[2024-09-08] MEDS: traZODone HCL 50 MG TABLET 250 MG PO (21:00)
[2024-09-08] MEDS: OLANZapine 10 MG TABLET 30 MG PO (21:00)
[2024-09-09] MEDS: Omeprazole 20 MG CAPSULE.DR PO ×2 (05:52→17:14)
[2024-09-09 08:00] VITALS: BP 130/71; PULSE 99; RESP 16; TEMP 36.6; O2SAT 98
[2024-09-09] MEDS: polyethylene glycoL 3350 17 GM POWD.PACK PO (08:21)
[2024-09-09] MEDS: Fluticasone Propionate Nasal 16 GM SPRAY 1 SPRAY NOSTRIL-L ×2 (08:22→21:26)
[2024-09-09] MEDS: Docusate Sodium 100 MG CAPSULE PO ×2 (08:22→21:30)
[2024-09-09] MEDS: QUEtiapine Fumarate 50 MG TABLET PO ×2 (08:22→17:32)
[2024-09-09] MEDS: Benztropine Mesylate 0.5 MG TABLET PO ×2 (08:22→21:30)
[2024-09-09] MEDS: Fluticasone Propionate 100 MCG BLST.W.DEV 1 PUFF INHALE (08:22)
[2024-09-09] MEDS: Ibuprofen 400 MG TABLET PO (08:23)
[2024-09-09] MEDS: Sertraline HCL 100 MG TABLET 200 MG PO (08:23)
[2024-09-09] MEDS: Gabapentin 100 MG CAPSULE PO ×3 (08:23→21:30)
[2024-09-09] MEDS: Sulfamethox/Trimeth 800/160 TABLET 1 TAB PO (08:23)
[2024-09-09] MEDS: Nicotine 14 MG PATCH.TD24 TRANSDERMA (08:24)
[2024-09-09] MEDS: Lidocaine 4 % Patch ADH..PATCH 1 PATCH TRANSDERMA (08:25)
[2024-09-09] MEDS: Mineral Oil/Petrolatum,White 106 GM Tube 1 APPL TOPICAL (08:30)
[2024-09-09] MEDS: Capsaicin 0.025% Cream 60 GM TUBE 1 APPL TOPICAL (08:30)
--- NOTE | 2024-09-09 08:59 | HO.PSYCHPN ---
Subjective Subjective Date of Service: 09/09/24 Reason For Visit: Crisis Subjective Notes: Conditional Voluntary Interim History: Pt reports feeling sad today d/t missing her children. Patient reports she is focused on obtaining an apartment when discharged. denies SI/HI/VH. +AH but less. C/O constipation, ordered senna and lactulose. Planning for discharge on Saturday. Medication Compliance: Yes Side effects from medications: No Attending Groups: Yes Mental Status Exam Mental Status Exam Narrative: Pt is alert and oriented; behavior is cooperative and calm; dressed in casual attire; mood is described as sad ; eye contact appropriate; Speech is normal rate, volume and not pressured; thought process is organized; Thought content is on discharge; denies SI/HI/VH. +AH that comes and goes Diagnostics Vital Signs (24Hr): Vital Signs - 24 hr 09/08/24 20:15 09/08/24 20:59 09/09/24 08:00 Temperature 98.4 F 97.8 F Pulse Rate 86 99 Respiratory Rate 18 16 Blood Pressure 119/57 L 119/57 L 130/71 Pulse Oximetry 86 L 98 Oxygen Delivery Method Room Air Room Air BMI result Body Mass Index 35.5 Labs 08/31/24 07:58 08/31/24 19:39 Imaging Radiology Impressions: ITS Impressions Abdomen/Pelvis CT 08/31/24 13:19 IMPRESSION: Consider mild enterocolitis in the correct clinical settings. Subcentimeter hypodensity right hepatic lobe. Spondylosis L4-5 and L5-S1. Fleischner guidelines were followed. Electronically signed by: Kali Lowery MD 08/31/2024 01:48 PM EDT Medications Medications Current Medications Acetaminophen (Acetaminophen 325 Mg Tablet) 650 mg PO Q6H PRN PRN Reason: Headache/Pain, Scale 1-10 Last Admin: 09/08/24 17:33 Dose: 650 mg Al Hydroxide/Mg Hydroxide (Magnesium Hydrox/Alum Hydrox 30 Ml Oral.Susp) 30 ml PO Q6H PRN PRN Reason: Heartburn/Nausea Last Admin: 09/07/24 15:15 Dose: 30 ml Albuterol Sulfate (Albuterol Sulfate 90 Mcg 8 Gm Inhaler) 1 puff INHALE RQ4H PRN PRN Reason: Wheezing Last Admin: 09/08/24 20:48 Dose: 1 puff Benztropine Mesylate (Benztropine Mesylate 0.5 Mg Tablet) 0.5 mg PO BID [facility] Last Admin: 09/09/24 08:22 Dose: 0.5 mg Capsaicin (Capsaicin 0.025% Cream 60 Gm Tube) 1 appl TOPICAL QID PRN; Protocol PRN Reason: muscle aches Last Admin: 09/09/24 08:30 Dose: 1 appl Clonazepam (Clonazepam 1 Mg Tablet) 2 mg PO DAILY PRN PRN Reason: 2 hours prior to anxiety provoking event Last Admin: 09/08/24 08:44 Dose: 2 mg Docusate Sodium (Docusate Sodium 100 Mg Capsule) 100 mg PO BID [facility] Last Admin: 09/09/24 08:22 Dose: 100 mg Fluticasone Propionate (Fluticasone Propionate 100 Mcg Blst.W.Dev) 1 puff INHALE RBID [facility] Last Admin: 09/09/24 08:22 Dose: 1 puff Fluticasone Propionate (Fluticasone Propionate Nasal 16 Gm [place]) 1 spray NOSTRIL-L BID [facility] Last Admin: 09/09/24 08:22 Dose: 1 spray Gabapentin (Gabapentin 100 Mg Capsule) 100 mg PO TID [facility] Last Admin: 09/09/24 08:23 Dose: 100 mg Hydroxyzine HCl (Hydroxyzine Hcl 50 Mg Tablet) 100 mg PO TID PRN PRN Reason: anxiety Last Admin: 09/08/24 08:34 Dose: 100 mg Ibuprofen (Ibuprofen 400 Mg Tablet) 400 mg PO Q6H PRN PRN Reason: Pain, Moderate(Pain Scale 4-6) Last Admin: 09/09/24 08:23 Dose: 400 mg Lidocaine (Lidocaine 4 % Patch Adh..Patch) 1 patch TRANSDERMA DAILY [facility]; Protocol Last Admin: 09/09/24 08:25 Dose: 1 patch Magnesium Hydroxide (Milk Of Magnesia 30 Ml Oral.Susp) 30 ml PO DAILY PRN PRN Reason: Constipation Last Admin: 09/08/24 14:09 Dose: 30 ml Multi-Ingred Cream/Lotion/Oil/Oint (Mineral Oil/Petrolatum,White 106 Gm Tube) 1 appl TOPICAL BID PRN; Protocol PRN Reason: Dry Skin Last Admin: 09/09/24 08:30 Dose: 1 appl Nicotine (Nicotine 14 Mg Patch.Td24) 14 mg TRANSDERMA DAILY [facility] Last Admin: 09/09/24 08:24 Dose: 14 mg Nicotine Polacrilex (Nicotine Polacrilex 2 Mg Gum) 2 mg BUCCAL Q2H PRN PRN Reason: Nicotine Cravings Olanzapine (Olanzapine 10 Mg Tablet) 30 mg PO BEDTIME [facility] Last Admin: 09/08/24 21:00 Dose: 30 mg Olanzapine (Olanzapine 5 Mg Tablet) 5 mg PO BID PRN PRN Reason: Psychosis Last Admin: 09/08/24 12:18 Dose: 5 mg Omeprazole (Omeprazole 20 Mg Capsule.Dr) 20 mg PO BID@0630,1630 [facility] Last Admin: 09/09/24 05:52 Dose: 20 mg Ondansetron HCl (Ondansetron Odt 4 Mg Tab.Rapdis) 4 mg TRANSLINGU Q6H PRN PRN Reason: Nausea and Vomiting Polyethylene Glycol (Polyethylene Glycol 3350 17 Gm Powd.Pack) 17 gm PO DAILY PRN PRN Reason: Constipation Last Admin: 09/09/24 08:21 Dose: 17 gm Prazosin HCl (Prazosin Hcl 5 Mg Capsule) 5 mg PO BEDTIME [facility]; Protocol Last Admin: 09/08/24 20:59 Dose: 5 mg Quetiapine Fumarate (Quetiapine Fumarate 50 Mg Tablet) 50 mg PO TID PRN PRN Reason: panic attack Last Admin: 09/09/24 08:22 Dose: 50 mg Senna/Docusate Sodium (Sennosides/Docusate Sodium Tablet) 1 tab PO DAILY PRN PRN Reason: Constipation Sertraline HCl (Sertraline Hcl 100 Mg Tablet) 200 mg PO DAILY [facility] Last Admin: 09/09/24 08:23 Dose: 200 mg Trazodone HCl (Trazodone Hcl 50 Mg Tablet) 250 mg PO BEDTIME [facility] Last Admin: 09/08/24 21:00 Dose: 250 mg Trimethoprim/Sulfamethoxazole (Sulfamethox/Trimeth 800/160 Tablet) 1 tab PO BID [facility] Last Admin: 09/09/24 08:23 Dose: 1 tab Allergies Allergies Allergy/AdvReac Type Severity Reaction Status Date / Time almond Allergy Severe Anaphylaxis Verified 08/31/24 07:22 Penicillins Allergy Severe Anaphylaxis Verified 08/31/24 07:22 shrimp Allergy Severe Anaphylaxis Verified 08/31/24 07:22 peanuts Allergy Severe Anaphylaxis Uncoded 08/31/24 07:22 Assessment & Plan Assessment & Plan (1) MDD (major depressive disorder), recurrent episode: Status: Acute Code(s): F33.9 - Major depressive disorder, recurrent, unspecified (2) PTSD (post-traumatic stress disorder): Status: Acute Code(s): F43.10 - Post-traumatic stress disorder, unspecified (3) Cocaine use disorder: Status: Acute Code(s): F14.10 - Cocaine abuse, uncomplicated Plan Patient is a 38-year-old female with history of MDD, PTSD and cocaine use disorder who self presented to [facility] reporting that she smoked marijuana 2 days ago and believes it was laced with cocaine which has resulted in her feeling depressed with suicidal ideation. Plan: CV 15 minute safety checks Continue home medication Obtain collateral Encourage groups Discharge planning 09/02: Active on unit. social with peers. attending groups. medication compliant. Patient continues to report feeling anxious and depressed today; pt stated, I tried calling my and when I spoke to him he told me I can't go back home . She reports suicidal ideation with no plan. +AH telling her to harm herself. Pt reports not sleeping well d/t nightmares; discussed Prazosin; start: Prazosin 1mg PO bedtime. 09/03: Reports passive SI, wanting to self harm with a fork. Safety tray ordered. Reports Prazosin needs to increase as she reports taking 8 mg by history-we increased to 2 mg. Ibuprofen prn for menstrual cramping. 09/04: Active on unit, attending groups. Continues anxious regarding returning home and wanting her to leave. Pt stated, he told me I have until October to move out. I just want my own place . Pt reports she plans on contacting [employer] to find housing. Continues to reports suicidal ideation with no plan. 09/05: Increase Prazosin 3 mg HS. 09/06: Increase Prazosin to 5 mg HS. Continue current management and treatment plan. 09/07: Continues to report feeling anxious and depressed regarding her situation. She reports suicidal ideation with no plan. +AH at times. denies HI/VH. Patient is hoping she is feeling ready to go back home by the end of the week. added zyprexa 5mg PO BID PRN 09/08: Pt reports feeling irritable d/t getting into an argument with her partner on the phone. She reports sleeping well last night. denies SI/HI/VH. Continues to report auditory hallucinations at times; pt stated, one tells me to do something good and another tells me something bad . Continue current tx plan 08/30: Pt reports feeling sad today d/t missing her children. Patient reports she is focused on obtaining an apartment when discharged. denies SI/HI/VH. +AH but less. C/O constipation, ordered senna and lactulose. Planning for discharge on Saturday. Patient educated on: diagnosis, medication risk/benefits and therapeutic strategies Reason for continued inpatient stay Substantial Risk for: med/psych decompensation Time Spent With Patient Time: Total time managing care of this patient today _20___ minutes.
[2024-09-09] MEDS: hydrOXYzine HCL 50 MG TABLET 100 MG PO ×2 (09:49→21:30)
[2024-09-09] MEDS: OLANZapine 5 MG TABLET PO (10:58)
[2024-09-09] MEDS: Sennosides/Docusate Sodium TABLET 1 TAB PO (11:37)
[2024-09-09] MEDS: Cyclobenzaprine HCl 5 MG TABLET PO (11:37)
[2024-09-09] MEDS: Lactulose 20 GM/30 ML SOLUTION 40 GM PO (11:37)
[2024-09-09] MEDS: clonazePAM 1 MG TABLET 2 MG PO (17:32)
[2024-09-09] MEDS: Milk of Magnesia 30 ML ORAL.SUSP PO (17:44)
[2024-09-09 20:00] VITALS: BP 114/58; PULSE 90; RESP 16; TEMP 36.9; O2SAT 95
[2024-09-09] MEDS: traZODone HCL 50 MG TABLET 250 MG PO (21:27)
[2024-09-09] MEDS: Albuterol Sulfate 90 MCG 8 GM INHALER 1 PUFF INHALE (21:27)
[2024-09-09 21:28] VITALS: BP 114/58
[2024-09-09] MEDS: Prazosin HCL 5 MG CAPSULE PO (21:28)
[2024-09-09] MEDS: OLANZapine 10 MG TABLET 30 MG PO (21:30)
[2024-09-09] MEDS: Acetaminophen 325 MG TABLET 650 MG PO (21:32)
[2024-09-10] MEDS: Omeprazole 20 MG CAPSULE.DR PO ×2 (05:57→15:42)
[2024-09-10] MEDS: Albuterol Sulfate 90 MCG 8 GM INHALER 1 PUFF INHALE ×2 (06:01→21:46)
[2024-09-10 08:06] VITALS: BP 141/68; PULSE 106; RESP 16; TEMP 36.4; O2SAT 97
[2024-09-10] MEDS: Fluticasone Propionate Nasal 16 GM SPRAY 1 SPRAY NOSTRIL-L ×2 (09:01→22:23)
[2024-09-10] MEDS: Fluticasone Propionate 100 MCG BLST.W.DEV 1 PUFF INHALE (09:01)
[2024-09-10] MEDS: Nicotine 14 MG PATCH.TD24 TRANSDERMA (09:01)
[2024-09-10] MEDS: Gabapentin 100 MG CAPSULE PO ×3 (09:03→21:53)
[2024-09-10] MEDS: Sertraline HCL 100 MG TABLET 200 MG PO (09:03)
[2024-09-10] MEDS: Docusate Sodium 100 MG CAPSULE PO ×2 (09:03→21:51)
[2024-09-10] MEDS: Benztropine Mesylate 0.5 MG TABLET PO ×2 (09:03→21:53)
[2024-09-10] MEDS: Lidocaine 4 % Patch ADH..PATCH 1 PATCH TRANSDERMA (09:04)
[2024-09-10] MEDS: hydrOXYzine HCL 50 MG TABLET 100 MG PO ×2 (09:11→21:51)
[2024-09-10] MEDS: Ibuprofen 400 MG TABLET PO (09:11)
[2024-09-10 09:26] VITALS: BMI 36.6
[2024-09-10] MEDS: Milk of Magnesia 30 ML ORAL.SUSP PO (10:52)
[2024-09-10] MEDS: OLANZapine 5 MG TABLET PO (12:10)
[2024-09-10] MEDS: Mineral Oil/Petrolatum,White 106 GM Tube 1 APPL TOPICAL ×2 (12:10→21:48)
[2024-09-10] MEDS: Capsaicin 0.025% Cream 60 GM TUBE 1 APPL TOPICAL ×2 (12:11→21:49)
--- NOTE | 2024-09-10 12:46 | P.PNPSI_ITS ---
Subjective Subjective Date of Service: 09/10/24 Reason For Visit: Crisis Subjective Notes: Conditional Voluntary Interim History: Pt reports feeling good today; pt stated, I'm feeling better. I'm getting repared mentally to go home and I'm going to go to [facility] tomorrow to see if they can help me find an apartment . Pt reports sleeping well last night. She reports having bowel movement last evening. denies SI/HI/VH. +AH but a lot less . Patient plans on following up with her outpatient providers. Medication Compliance: Yes Side effects from medications: No Attending Groups: Yes Mental Status Exam Mental Status Exam Narrative: Pt is alert and oriented; behavior is cooperative and calm; dressed in casual attire; mood is described as good ; eye contact appropriate; Speech is normal rate, volume and not pressured; thought process is organized; Thought content is on discharge; denies SI/HI/VH. Pt reports auditory hallucinations that are a lot less . Diagnostics Vital Signs (24Hr): Vital Signs - 24 hr 09/09/24 20:00 09/09/24 21:28 09/10/24 08:06 Temperature 98.5 F 97.6 F Pulse Rate 90 106 H Respiratory Rate 16 16 Blood Pressure 114/58 L 114/58 L 141/68 H Pulse Oximetry 95 97 Oxygen Delivery Method Room Air Room Air BMI result Body Mass Index 36.6 Labs 08/31/24 07:58 08/31/24 19:39 Imaging Radiology Impressions: ITS Impressions Abdomen/Pelvis CT 08/31/24 13:19 IMPRESSION: Consider mild enterocolitis in the correct clinical settings. Subcentimeter hypodensity right hepatic lobe. Spondylosis L4-5 and L5-S1. Fleischner guidelines were followed. Electronically signed by: Kali Lowery MD 08/31/2024 01:48 PM EDT Medications Medications Current Medications Acetaminophen (Acetaminophen 325 Mg Tablet) 650 mg PO Q6H PRN PRN Reason: Headache/Pain, Scale 1-10 Last Admin: 09/09/24 21:32 Dose: 650 mg Al Hydroxide/Mg Hydroxide (Magnesium Hydrox/Alum Hydrox 30 Ml Oral.Susp) 30 ml PO Q6H PRN PRN Reason: Heartburn/Nausea Last Admin: 09/07/24 15:15 Dose: 30 ml Albuterol Sulfate (Albuterol Sulfate 90 Mcg 8 Gm Inhaler) 1 puff INHALE RQ4H PRN PRN Reason: Wheezing Last Admin: 09/10/24 06:01 Dose: 1 puff Benztropine Mesylate (Benztropine Mesylate 0.5 Mg Tablet) 0.5 mg PO BID [facility] Last Admin: 09/10/24 09:03 Dose: 0.5 mg Capsaicin (Capsaicin 0.025% Cream 60 Gm Tube) 1 appl TOPICAL QID PRN; Protocol PRN Reason: muscle aches Last Admin: 09/10/24 12:11 Dose: 1 appl Clonazepam (Clonazepam 1 Mg Tablet) 2 mg PO DAILY PRN PRN Reason: 2 hours prior to anxiety provoking event Last Admin: 09/09/24 17:32 Dose: 2 mg Cyclobenzaprine HCl (Cyclobenzaprine Hcl 5 Mg Tablet) 5 mg PO DAILY PRN PRN Reason: Muscle Spasm Last Admin: 09/09/24 11:37 Dose: 5 mg Docusate Sodium (Docusate Sodium 100 Mg Capsule) 100 mg PO BID [facility] Last Admin: 09/10/24 09:03 Dose: 100 mg Fluticasone Propionate (Fluticasone Propionate 100 Mcg Blst.W.Dev) 1 puff INHALE RBID [facility] Last Admin: 09/10/24 09:01 Dose: 1 puff Fluticasone Propionate (Fluticasone Propionate Nasal 16 Gm [place]) 1 spray NOSTRIL-L BID [facility] Last Admin: 09/10/24 09:01 Dose: 1 spray Gabapentin (Gabapentin 100 Mg Capsule) 100 mg PO TID [facility] Last Admin: 09/10/24 09:03 Dose: 100 mg Hydroxyzine HCl (Hydroxyzine Hcl 50 Mg Tablet) 100 mg PO TID PRN PRN Reason: anxiety Last Admin: 09/10/24 09:11 Dose: 100 mg Ibuprofen (Ibuprofen 400 Mg Tablet) 400 mg PO Q6H PRN PRN Reason: Pain, Moderate(Pain Scale 4-6) Last Admin: 09/10/24 09:11 Dose: 400 mg Lidocaine (Lidocaine 4 % Patch Adh..Patch) 1 patch TRANSDERMA DAILY [facility]; Protocol Last Admin: 09/10/24 09:04 Dose: 1 patch Magnesium Hydroxide (Milk Of Magnesia 30 Ml Oral.Susp) 30 ml PO DAILY PRN PRN Reason: Constipation Last Admin: 09/10/24 10:52 Dose: 30 ml Multi-Ingred Cream/Lotion/Oil/Oint (Mineral Oil/Petrolatum,White 106 Gm Tube) 1 appl TOPICAL BID PRN; Protocol PRN Reason: Dry Skin Last Admin: 09/10/24 12:10 Dose: 1 appl Nicotine (Nicotine 14 Mg Patch.Td24) 14 mg TRANSDERMA DAILY [facility] Last Admin: 09/10/24 09:01 Dose: 14 mg Nicotine Polacrilex (Nicotine Polacrilex 2 Mg Gum) 2 mg BUCCAL Q2H PRN PRN Reason: Nicotine Cravings Olanzapine (Olanzapine 10 Mg Tablet) 30 mg PO BEDTIME [facility] Last Admin: 09/09/24 21:30 Dose: 30 mg Olanzapine (Olanzapine 5 Mg Tablet) 5 mg PO BID PRN PRN Reason: Psychosis Last Admin: 09/10/24 12:10 Dose: 5 mg Omeprazole (Omeprazole 20 Mg Capsule.Dr) 20 mg PO BID@0630,1630 [facility] Last Admin: 09/10/24 05:57 Dose: 20 mg Polyethylene Glycol (Polyethylene Glycol 3350 17 Gm Powd.Pack) 17 gm PO DAILY PRN PRN Reason: Constipation Last Admin: 09/09/24 08:21 Dose: 17 gm Prazosin HCl (Prazosin Hcl 5 Mg Capsule) 5 mg PO BEDTIME [facility]; Protocol Last Admin: 09/09/24 21:28 Dose: 5 mg Quetiapine Fumarate (Quetiapine Fumarate 50 Mg Tablet) 50 mg PO TID PRN PRN Reason: panic attack Last Admin: 09/09/24 17:32 Dose: 50 mg Senna/Docusate Sodium (Sennosides/Docusate Sodium Tablet) 1 tab PO DAILY PRN PRN Reason: Constipation Last Admin: 09/09/24 11:37 Dose: 1 tab Sertraline HCl (Sertraline Hcl 100 Mg Tablet) 200 mg PO DAILY [facility] Last Admin: 09/10/24 09:03 Dose: 200 mg Trazodone HCl (Trazodone Hcl 50 Mg Tablet) 250 mg PO BEDTIME [facility] Last Admin: 09/09/24 21:27 Dose: 250 mg Allergies Allergies Allergy/AdvReac Type Severity Reaction Status Date / Time almond Allergy Severe Anaphylaxis Verified 08/31/24 07:22 Penicillins Allergy Severe Anaphylaxis Verified 08/31/24 07:22 shrimp Allergy Severe Anaphylaxis Verified 08/31/24 07:22 peanuts Allergy Severe Anaphylaxis Uncoded 08/31/24 07:22 Assessment & Plan Assessment & Plan (1) MDD (major depressive disorder), recurrent episode: Status: Acute Code(s): F33.9 - Major depressive disorder, recurrent, unspecified (2) PTSD (post-traumatic stress disorder): Status: Acute Code(s): F43.10 - Post-traumatic stress disorder, unspecified (3) Cocaine use disorder: Status: Acute Code(s): F14.10 - Cocaine abuse, uncomplicated Plan Patient is a 38-year-old female with history of MDD, PTSD and cocaine use disorder who self presented to [facility] reporting that she smoked marijuana 2 days ago and believes it was laced with cocaine which has resulted in her feeling depressed with suicidal ideation. Plan: CV 15 minute safety checks Continue home medication Obtain collateral Encourage groups Discharge planning 09/02: Active on unit. social with peers. attending groups. medication compliant. Patient continues to report feeling anxious and depressed today; pt stated, I tried calling my and when I spoke to him he told me I can't go back home . She reports suicidal ideation with no plan. +AH telling her to harm herself. Pt reports not sleeping well d/t nightmares; discussed Prazosin; start: Prazosin 1mg PO bedtime. 09/03: Reports passive SI, wanting to self harm with a fork. Safety tray ordered. Reports Prazosin needs to increase as she reports taking 8 mg by history-we increased to 2 mg. Ibuprofen prn for menstrual cramping. 09/04: Active on unit, attending groups. Continues anxious regarding returning home and wanting her to leave. Pt stated, he told me I have until October to move out. I just want my own place . Pt reports she plans on contacting [facility] to find housing. Continues to reports suicidal ideation with no plan. 09/05: Increase Prazosin 3 mg HS. 09/06: Increase Prazosin to 5 mg HS. Continue current management and treatment plan. 09/07: Continues to report feeling anxious and depressed regarding her situation. She reports suicidal ideation with no plan. +AH at times. denies HI/VH. Patient is hoping she is feeling ready to go back home by the end of the week. added zyprexa 5mg PO BID PRN 09/08: Pt reports feeling irritable d/t getting into an argument with her partner on the phone. She reports sleeping well last night. denies SI/HI/VH. Continues to report auditory hallucinations at times; pt stated, one tells me to do something good and another tells me something bad . Continue current tx plan 09/09: Pt reports feeling sad today d/t missing her children. Patient reports she is focused on obtaining an apartment when discharged. denies SI/HI/VH. +AH but less. C/O constipation, ordered senna and lactulose. Planning for discharge on Saturday. 09/10: Pt reports feeling good today; pt stated, I'm feeling better. I'm getting repared mentally to go home and I'm going to go to [facility] tomorrow to see if they can help me find an apartment . Pt reports sleeping well last night. She reports having bowel movement last evening. denies SI/HI/VH. +AH but a lot less . Patient plans on following up with her outpatient providers. Patient educated on: diagnosis, medication risk/benefits and therapeutic strategies Reason for continued inpatient stay Substantial Risk for: stable for discharge Time Spent With Patient Time: Total time managing care of this patient today _20___ minutes.
[2024-09-10] MEDS: clonazePAM 1 MG TABLET 2 MG PO (14:20)
[2024-09-10] MEDS: Cyclobenzaprine HCl 5 MG TABLET PO (17:20)
[2024-09-10 20:00] VITALS: BP 108/61; PULSE 65; RESP 16; TEMP 36.4; O2SAT 97
[2024-09-10] MEDS: Acetaminophen 325 MG TABLET 650 MG PO (21:50)
[2024-09-10] MEDS: QUEtiapine Fumarate 50 MG TABLET PO (21:53)
[2024-09-10] MEDS: traZODone HCL 50 MG TABLET 250 MG PO (21:53)
[2024-09-10] MEDS: OLANZapine 10 MG TABLET 30 MG PO (21:53)
[2024-09-10 21:57] VITALS: BP 129/60
[2024-09-10] MEDS: Prazosin HCL 5 MG CAPSULE PO (21:57)
[2024-09-11] MEDS: Omeprazole 20 MG CAPSULE.DR PO (06:17)
[2024-09-11] MEDS: hydrOXYzine HCL 50 MG TABLET 100 MG PO ×2 (06:34→12:23)
[2024-09-11 08:00] VITALS: BP 121/58; PULSE 99; RESP 14; TEMP 37.1; O2SAT 96
[2024-09-11] MEDS: Gabapentin 100 MG CAPSULE PO (08:07)
[2024-09-11] MEDS: Sertraline HCL 100 MG TABLET 200 MG PO (08:07)
[2024-09-11] MEDS: Fluticasone Propionate Nasal 16 GM SPRAY 1 SPRAY NOSTRIL-L (08:08)
[2024-09-11] MEDS: Fluticasone Propionate 100 MCG BLST.W.DEV 1 PUFF INHALE (08:08)
[2024-09-11] MEDS: Docusate Sodium 100 MG CAPSULE PO (08:08)
[2024-09-11] MEDS: Benztropine Mesylate 0.5 MG TABLET PO (08:08)
[2024-09-11] MEDS: Nicotine 14 MG PATCH.TD24 TRANSDERMA (08:09)
[2024-09-11] MEDS: Lidocaine 4 % Patch ADH..PATCH 1 PATCH TRANSDERMA (08:10)
[2024-09-11] MEDS: Naloxone HCl Nasal TAKE HOME 4 MG SPRAY 8 MG NOSTRILALT (08:12)
[2024-09-11] MEDS: Ibuprofen 400 MG TABLET PO (08:52)
--- NOTE | 2024-09-11 09:17 | P.DS_ITS ---
DS: Providers Provider Date of Service: 09/11/24 Date of admission: 08/31/24 14:47 Date of discharge: 09/11/24 Primary care physician: Adrianne Becerril MD Admitting clinician: Olamide Alex Attending physician on admission: Darwin Vidal Attending physician on discharge: Darwin Vidal Discharging clinician: Olamide Alex DS: Diagnosis Discharge Diagnosis (1) MDD (major depressive disorder), recurrent episode: Status: Acute (2) PTSD (post-traumatic stress disorder): Status: Acute (3) Cocaine use disorder: Status: Acute DS: Medications Discharge Medications Home Medications: Previous Rx's ?Medication ?Instructions ?Recorded capsaicin 0.025 % topical cream 1 appl topical QID PRN Pain, 11/22/23 Moderate(Pain Scale 4-6) 30 days #50 grams fluticasone propionate 50 1 spray NOSTRIL-L BID 30 days #1 11/22/23 mcg/actuation nasal inhaler spray,suspension nicotine (polacrilex) 2 mg gum 2 mg buccal Q2H PRN Nicotine 11/22/23 Cravings 30 days #90 ea nicotine 14 mg/24 hr daily 14 mg transdermal DAILY 28 days 11/22/23 transdermal patch #28 ea albuterol sulfate 90 mcg/actuation 1 puff inhalation RQ4H PRN 09/10/24 aerosol inhaler (Ventolin HFA) Wheezing 30 days #1 inhaler benztropine 0.5 mg tablet 0.5 mg PO BID 30 days #60 tabs 09/10/24 clonazepam 2 mg tablet 2 mg PO DAILY PRN anxiety 7 days 09/10/24 #7 tabs docusate sodium 100 mg capsule 100 mg PO BID 30 days #60 caps 09/10/24 fluticasone propionate 100 1 inh inhalation BID 30 days #60 ea 09/10/24 mcg/actuation blister powder for inhalation gabapentin 100 mg capsule 100 mg PO TID depressive disorder 09/10/24 30 days #90 caps hydroxyzine pamoate 100 mg capsule 100 mg PO TID PRN anxiety 30 days 09/10/24 #90 caps olanzapine 10 mg tablet 30 mg (3 x 10 mg) PO BEDTIME 30 09/10/24 days #90 tabs omeprazole 20 mg capsule,delayed 20 mg PO BID@0630,1630 30 days #60 09/10/24 release caps polyethylene glycol 3350 17 gram 17 g PO DAILY 30 days #30 ea 09/10/24 oral powder packet prazosin 5 mg capsule 5 mg PO BEDTIME 30 days #30 caps 09/10/24 quetiapine 50 mg tablet 50 mg PO TID PRN panic attack 30 09/10/24 days #90 tabs sertraline 100 mg tablet 200 mg (2 x 100 mg) PO DAILY 30 09/10/24 days #60 tabs trazodone 100 mg tablet 250 mg (2.5 x 100 mg) PO BEDTIME 09/10/24 30 days #75 tabs white petrolatum-mineral oil 1 appl topical BID 30 days #454 09/10/24 topical cream (Dermacerin topical grams cream) Mental Status Exam Mental Status Exam Narrative: Pt is alert and oriented; behavior is cooperative and calm; dressed in casual attire; mood is described as good ; eye contact appropriate; Speech is normal rate, volume and not pressured; thought process is organized; Thought content is on discharge; denies SI/HI/VH. Pt reports auditory hallucinations that are a lot less . Data Data Completed and Pending Completed studies during hospitalization [Text1]: 08/31/24 Unknown Urine clean catch - Clean Catch Midstream Urine Culture - Final Strep agalactiae (Grp B) Imaging Diagnostic Imaging Impressions Abdomen/Pelvis CT 08/31/24 13:19 IMPRESSION: Consider mild enterocolitis in the correct clinical settings. Subcentimeter hypodensity right hepatic lobe. Spondylosis L4-5 and L5-S1. Fleischner guidelines were followed. Electronically signed by: Kali Lowery MD 08/31/2024 01:48 PM EDT DS: Summary Hospital Course Hospital Course: Patient is a 38-year-old female with history of MDD, PTSD and cocaine use disorder who self presented to [facility] reporting that she smoked marijuana 2 days ago and believes it was laced with cocaine which has resulted in her feeling depressed with suicidal ideation. Per crisis report, patient reports 2 days ago she smoked cannabis with her sister and believes it was laced with cocaine. She reported that since smoking she has had pain, vomiting, and tried to cut herself. She has been medication noncompliant the last 3 days. Patient reports has never self-harmed but has thoughts to jump out of a 4th floor window. History of attending PHP. Currently reports suicidal ideation with plan to jump into traffic or cut herself. Denies HI. Reports AH that tell her she is not good enough and a bad mother. Visual hallucinations of black shadows. Utox positive for cocaine and cannabis. Patient reports she smokes cannabis daily but denies any other substance use. During admission assessment, patient presents alert and oriented x3. Calm and cooperative. Patient reports feeling anxious and depressed; patient stated, I want my system to be clean from cocaine and marijuana. My told me I have 1 month to leave the house because he does not want someone like me in his life. To him I'm an addict if I use cocaine for 1 day . Patient reports she has been experiencing panic attacks since her told her that she must move out. Patient reports she has not been taking her medications for the past 4 days. She reports suicidal ideation with no plan. She also reports auditory hallucinations that are telling her to harm herself. Denies HI/VH. Patient re ports she has outpatient providers through [facility]. Plan: CV 15 minute safety checks Continue home medication Obtain collateral Encourage groups Discharge planning Active on unit. social with peers. attending groups. medication compliant. Patient continues to report feeling anxious and depressed today; pt stated, I tried calling my and when I spoke to him he told me I can't go back home . She reports suicidal ideation with no plan. +AH telling her to harm herself. Pt reports not sleeping well d/t nightmares; discussed Prazosin; start: Prazosin 1mg PO bedtime. Reports passive SI, wanting to self harm with a fork. Safety tray ordered. Reports Prazosin needs to increase as she reports taking 8 mg by history-we increased to 2 mg. Ibuprofen prn for menstrual cramping. Active on unit, attending groups. Continues anxious regarding returning home and wanting her to leave. Pt stated, he told me I have until October to move out. I just want my own place . Pt reports she plans on contacting [employer] to find housing. Continues to reports suicidal ideation with no plan. Increase Prazosin 3 mg HS. Increase Prazosin to 5 mg HS. Continue current management and treatment plan. Continues to report feeling anxious and depressed regarding her situation. She reports suicidal ideation with no plan. +AH at times. denies HI/VH. Patient is hoping she is feeling ready to go back home by the end of the week. added zyprexa 5mg PO BID PRN Pt reports feeling irritable d/t getting into an argument with her partner on the phone. She reports sleeping well last night. denies SI/HI/VH. Continues to report auditory hallucinations at times; pt stated, one tells me to do something good and another tells me something bad . Continue current tx plan Pt reports feeling sad today d/t missing her children. Patient reports she is focused on obtaining an apartment when discharged. denies SI/HI/VH. +AH but less. C/O constipation, ordered senna and lactulose. Planning for discharge on Saturday. Pt reports feeling good today; pt stated, I'm feeling better. I'm getting prepared mentally to go home and [facility]'m going to go [facility] tomorrow to see if they can help me find an apartment . Pt reports sleeping well last night. She reports having bowel movement last evening. denies SI/HI/VH. +AH but a lot less . Patient plans on following up with her outpatient providers. Observed laughing and joking with peers and staff. Patient continues to report feeling good and ready to leave ; she continues to discuss her plan to follow up with her outpatient providers and going to [facility]. Continues to reports auditory hallucinations which she states she always has but are quieter . denies SI/HI/VH. Status at Discharge Cognitive/behavioral status at discharge: Patient has insight and demonstrates good judgment in terms of wanting to pursue treatment. Patient has a safety plan that includes presenting to the closest ER or calling 911 if feeling unsafe. Functional status at discharge: independent ambulation Overall status at discharge: patient is back to baseline Time Spent with Patient Time attestation: Total time managing care of this patient today _20___ minutes. Time spent: Less than 30 minutes Discharge Plan Discharge Anticipated Discharge Date/Time: 09/11/24 14:00 Patient Disposition: Home, Self-Care Discharge Diagnosis: MDD, PTSD, cocaine use d/o Referrals: Reno Rodriguez (Therapy) [Other] - 09/14/24 3:00 pm (TELEHEALTH APPOINTMENT) Cande Chilel (Psychiatry) [Other] - 09/24/24 11:40 am (TELEHEALTH APPOINTMENT) Adrianne Becerril MD [Primary Care Provider] - 09/17/24 2:00 pm (09-08-24 Your follow up appt for primary care will be with Dr. Marquez on 09-17-24 @ 2pm. Per [facility] no fax needed.) Discharge Medications: New prazosin 5 mg Capsule 5 mg PO BEDTIME 30 Days Qty: 30 0RF Protocol: Hold for SBP< HOLD for SBP < : 90 benztropine 0.5 mg Tablet 0.5 mg PO BID 30 Days Qty: 60 0RF clonazepam 2 mg tablet 2 mg PO DAILY PRN (Reason: anxiety) 7 Days Qty: 7 3RF Continued nicotine 14 mg/24 hr Patch 24 Hour 14 mg transdermal DAILY 28 Days Qty: 28 0RF nicotine (polacrilex) 2 mg Gum 2 mg buccal Q2H PRN (Reason: Nicotine Cravings) 30 Days Qty: 90 0RF fluticasone propionate 50 mcg/actuation [place],Suspension 1 spray NOSTRIL-L BID 30 Days Qty: 1 0RF capsaicin 0.025 % Cream 1 appl topical QID PRN (Reason: Pain, Moderate(Pain Scale 4-6)) 30 Days Qty: 50 0RF Protocol: Apply to: Apply to: lower back docusate sodium 100 mg Capsule 100 mg PO BID 30 Days Qty: 60 0RF albuterol sulfate [Ventolin HFA] 90 mcg/actuation Hfa Aerosol Inhaler 1 puff inhalation RQ4H PRN (Reason: Wheezing) 30 Days Qty: 1 0RF hydroxyzine pamoate 100 mg capsule 100 mg PO TID PRN (Reason: anxiety) 30 Days Qty: 90 0RF polyethylene glycol 3350 17 gram Powder In Packet 17 g PO DAILY 30 Days Qty: 30 0RF sertraline 100 mg tablet 200 mg PO DAILY 30 Days Qty: 60 0RF olanzapine 10 mg Tablet 30 mg PO BEDTIME 30 Days Qty: 90 0RF trazodone 100 mg Tablet 250 mg PO BEDTIME 30 Days Qty: 75 0RF fluticasone propionate 100 mcg/actuation Blister With Device 1 inh INHALATION BID 30 Days Qty: 60 0RF omeprazole 20 mg Capsule,Delayed Release(Dr/Ec) 20 mg PO BID@0630,1630 30 Days Qty: 60 0RF gabapentin 100 mg capsule 100 mg PO TID 30 Days Qty: 90 0RF Dermacerin Cream 1 appl topical BID 30 Days Qty: 454 0RF Protocol: Apply to: Apply to: thighs quetiapine 50 mg tablet 50 mg PO TID PRN (Reason: panic attack) 30 Days Qty: 90 0RF Discontinued ekzsermc-lmecurplt-EQ 3.5-10,000-1 mg/mL-unit/mL-% Solution 4 drp otic (ear) left TID 7 Days Qty: 10 0RF clonazepam [Klonopin] 2 mg tablet 2 mg PO .qweekly PRN (Reason: 2 hours prior to anxiety provoking event) 30 Days Qty: 5 0RF Discharge Orders: Discharge Order (Routine); Ordered 09/11/24 Ordered By: Olamide Alex Diet: Regular diet Activity on Discharge: As tolerated Stand Alone Forms: Patient Portal Discharge page, Community Support Print Language: Somali Activity Restrictions/Additional Instructions: Consider mild enterocolitis in the correct clinical settings. Subcentimeter hypodensity right hepatic lobe. Spondylosis L4-5 and L5-S1. a subcentimeter hypodensity in the right liver was found. Please closely follow-up on an outpatient basis. Risk of malignancy exists. Care Plan Goals: Maintain mood and safe behaviors Take medications as prescribed Continue to pursue sobriety Practice coping skills Continue with outpatient providers and reach out to them as needed Health Concerns: Mood stability and behaviors Sobriety Plan of Treatment: Follow up with your PCP, psychiatric provider and other outpatient providers regarding above concerns Take medications as prescribed Assessment: Patient has insight and demonstrates good judgment in terms of wanting to pursue treatment. Patient has a safety plan that includes presenting to the closest ER or calling 911 if feeling unsafe.
[2024-09-11] MEDS: QUEtiapine Fumarate 50 MG TABLET PO (10:24)
[2024-09-11] MEDS: clonazePAM 1 MG TABLET 2 MG PO (12:22)
[2024-09-11] MEDS: Cyclobenzaprine HCl 5 MG TABLET PO (12:23)
== END 2024-09-11 13:20 | disposition home or self-care (01) | DRG 751 ==
LOC: HO.ED 14:05 → HO.PADLT16 14:47
PROVIDERS: Admitting Provider Registered Nurse; Emergency Provider Emergency Medicine Emergency Medical Services; PCP General Practice; Responsible Provider Registered Nurse; Visit Provider Psychiatry & Neurology Psychiatry
DX: F33.9 Major depressive disorder, recurrent, unspecified (principal); R45.851 Suicidal ideations; F14.10 Cocaine abuse, uncomplicated; F43.10 Post-traumatic stress disorder, unspecified; Z20.822 Contact with and (suspected) exposure to COVID-19; Z23 Encounter for immunization; Z79.51 Long term (current) use of inhaled steroids; Z87.891 Personal history of nicotine dependence; Z79.899 Other long term (current) drug therapy
CPT/HCPCS: 0241U; 36415; 74177; 80053; 80061; 80143; 80179; 80307; 81001; 81025; 85025; 87086; 87147; 90656; 93005; 99285; J1885; J2405; Q9967; S9485

== ENCOUNTER → 2024-08-31 07:32 | Outpatient (BNV) | payer MEDICAID, SELFPAY | PROVIDERS: Admitting Provider Registered Nurse; Emergency Provider Emergency Medicine Emergency Medical Services; PCP General Practice; Visit Provider Internal Medicine Cardiovascular Disease | DX: R00.0 Tachycardia, unspecified (principal) | CPT/HCPCS: 93010 ==

== ENCOUNTER → 2024-08-31 07:38 | Outpatient (BNV) | payer MEDICAID, SELFPAY | PROVIDERS: Emergency Provider Emergency Medicine Emergency Medical Services; PCP General Practice; Visit Provider Radiology Diagnostic Radiology | DX: R93.2 Abnormal findings on diagnostic imaging of liver and biliary tract (principal); M47.817 Spondylosis without myelopathy or radiculopathy, lumbosacral region | CPT/HCPCS: 74177 ==

== ENCOUNTER → 2024-08-31 14:47 | Outpatient (BNV) | payer OTHER, SELFPAY | PROVIDERS: Admitting Provider Registered Nurse; Emergency Provider Emergency Medicine Emergency Medical Services; PCP General Practice; Responsible Provider Registered Nurse; Visit Provider Registered Nurse | DX: F33.2 Major depressive disorder, recurrent severe without psychotic features (principal); F14.10 Cocaine abuse, uncomplicated; F43.11 Post-traumatic stress disorder, acute | CPT/HCPCS: 99232; 99233 ==

== ENCOUNTER 2024-10-21 08:11 | Inpatient (IN) | payer MEDICAID, OTHER, SELFPAY ==
--- NOTE | ~2024-10-21 | XR_ITS ---
EXAMINATION: XR RIBS 3 VIEWS MINIMUM WITH CHEST LEFT HISTORY: pain, injury COMPARISON: Comparison is made with the prior examination of the chest dated 06/21/2023. FINDINGS: A single PA view of the chest and 3 views of the left ribs are submitted. The lungs are expanded and clear. There is no pleural effusion, pneumothorax, or pulmonary vascular congestion. The heart is normal in size. The left ribs are intact. No fracture is seen. XR/XR ribs LT min 3V w CXR1V IMPRESSION: No acute cardiopulmonary abnormality. No evidence of fracture of the left ribs. Electronically signed by: Tavares Andres MD 10/21/2024 09:56 AM EDT
[2024-10-21 08:29] VITALS: BP 125/59; PULSE 82; RESP 18; TEMP 36.3; O2SAT 99; BMI 32.0
--- NOTE | 2024-10-21 08:35 | ECG_ITS ---
Test Reason : med clearance Blood Pressure : */* mmHG Vent. Rate : 74 BPM Atrial Rate : 74 BPM P-R Int : 140 ms QRS Dur : 74 ms QT Int : 370 ms P-R-T Axes : 33 58 53 degrees QTcB Int : 410 ms Normal sinus rhythm Nonspecific T wave abnormality Abnormal ECG When compared with ECG of 31-Aug-2024 07:32, No significant change was found Referred By: Generic ED Physician Electronically Signed By: CRISTHIAN LANDAVERDE
[2024-10-21 08:52] LABS: MANUAL DIFF FLAG NO
[2024-10-21 08:56] LABS: Basophils Percent Auto 0.3 % (0-2); Eosinophils Absolute Auto 0.1 X10*3/uL (0.0-0.4); Eosinophils Percent Auto 0.4 % (0-4); Hematocrit 36.9 % (37.0-47.0); Hemoglobin 12.1 g/dl (12.0-16.0); Imm Gran Abs Auto 0.05 X10*3/uL (0.00-0.03); Imm Gran Pct Auto 0.4 % (0.0-0.4); Lymphocytes Absolute Auto 2.2 X10*3/uL (1.2-4.9); Lymphocytes Percent Auto 18.5 % (20-40); Mean Corpuscular HGB Conc 32.8 g/dl (31.0-35.0); Mean Corpuscular Hemoglobin 22.8 pg (27.0-33.0); Mean Corpuscular Volume 69.6 fL (80.0-98.0); Mean Platelet Volume 9.4 fL (9.4-12.3); Monocytes Absolute Auto 0.5 X10*3/uL (0.1-1.2); Neutrophils Absolute Auto 9.1 x10*3/uL (2.0-8.3); Neutrophils Percent Auto 76.4 % (45-73); Platelet Count 479 X10*3/uL (160-400); Red Cell Distribution Width 17.1 % (11.0-16.0); White Blood Count 11.9 X10*3/uL (4.8-10.8)
--- NOTE | 2024-10-21 08:58 | ED_ITS ---
HPI - General Adult General Chief complaint: Psychiatric Symptoms Stated complaint: Med Refill Vomiting Time Seen by Provider: 10/21/24 08:56 Source: patient Mode of arrival: ambulatory Limitations: no limitations History of Present Illness ED Provider: Allyson Ferrara PA-C HPI narrative: Patient is a 38 year old assigned female at with a history of cocaine use disorder, MDD, DAVE, bipolar disorder, and cocaine use disorder presenting to the emergency department today with suicidal ideation, auditory hallucinations, left rib pain after a fall, and increased anxiety. Patient states that yesterday she had a panic attack that caused her to fall and land on her left ribs which continue to hurt. Patient states that she is also having period cramping. Patient states that she has not been on her psychiatric medications for over a month because her prescriber stopped prescribing them. Patient states that she is hearing voices and having thoughts of hurting herself but nobody else. Patient denies any dizziness, lightheadedness, abdominal pain, nausea, vomiting, fever, chills, blurry vision, double vision, loss of vision, chest pain, difficulty breathing, shortness of breath, back pain, night sweats, pain with urination, increased urinary frequency, increased urinary urgency, blood in her urine or stool, syncope or a near syncopal episode, recent trauma or falls, bowel incontinence, bladder incontinence, or any other complaints at this time. Related Data Home Medications ?Medication ?Instructions ?Recorded ?Confirmed [id number] 2 tab PO Q4H PRN Period Cramps 10/21/24 10/21/24 500 mg-60 mg-15 mg tablet (Midol Complete) benztropine 0.5 mg tablet 0.5 mg PO BID 10/21/24 10/21/24 capsaicin 0.025 % topical cream 1 appl topical QID PRN pain 10/21/24 10/21/24 clonazepam 2 mg tablet 2 mg PO DAILY PRN anxiety 10/21/24 10/21/24 fluticasone furoate 200 1 inh inhalation DAILY 10/21/24 10/21/24 mcg/actuation blister powder for inhalation (Arnuity Ellipta) fluticasone propionate 50 1 spray intranasal BID PRN Allergy 10/21/24 10/21/24 mcg/actuation nasal Symptoms spray,suspension nicotine (polacrilex) 2 mg gum 2 mg PO Q2H PRN Nicotine Cravings 10/21/24 10/21/24 nicotine 14 mg/24 hr daily 1 patch topical DAILY PRN Nicotine 10/21/24 10/21/24 transdermal patch Cravings ondansetron HCl 4 mg tablet 8 mg PO Q12H PRN nausea/vomiting 10/21/24 10/21/24 white petrolatum-mineral oil 1 appl topical BID PRN Dry Skin 10/21/24 10/21/24 topical cream (Dermacerin topical cream) Previous Rx's ?Medication ?Instructions ?Recorded albuterol sulfate 90 mcg/actuation 1 puff inhalation RQ4H PRN 09/10/24 aerosol inhaler (Ventolin HFA) Wheezing 30 days #1 inhaler docusate sodium 100 mg capsule 100 mg PO BID 30 days #60 caps 09/10/24 gabapentin 100 mg capsule 100 mg PO TID depressive disorder 09/10/24 30 days #90 caps hydroxyzine pamoate 100 mg capsule 100 mg PO TID PRN anxiety 30 days 09/10/24 #90 caps olanzapine 10 mg tablet 30 mg (3 x 10 mg) PO BEDTIME 30 09/10/24 days #90 tabs omeprazole 20 mg capsule,delayed 20 mg PO BID@0630,1630 30 days #60 09/10/24 release caps polyethylene glycol 3350 17 gram 17 g PO DAILY 30 days #30 ea 09/10/24 oral powder packet prazosin 5 mg capsule 5 mg PO BEDTIME 30 days #30 caps 09/10/24 quetiapine 50 mg tablet 50 mg PO TID PRN panic attack 30 09/10/24 days #90 tabs sertraline 100 mg tablet 200 mg (2 x 100 mg) PO DAILY 30 09/10/24 days #60 tabs trazodone 100 mg tablet 250 mg (2.5 x 100 mg) PO BEDTIME 09/10/24 30 days #75 tabs Allergies Allergy/AdvReac Type Severity Reaction Status Date / Time almond Allergy Severe Anaphylaxis Verified 10/21/24 08:33 Penicillins Allergy Severe Anaphylaxis Verified 10/21/24 08:33 shrimp Allergy Severe Anaphylaxis Verified 10/21/24 08:33 peanuts Allergy Severe Anaphylaxis Uncoded 08/31/24 07:22 Review of Systems 2 Constitutional: Constitutional: Reports no additional constitutional complaints, Denies chills, Denies fever(s) and Denies night sweats Eyes: Eyes: Reports no additional eye complaints, Denies blurry vision, Denies change in vision, Denies diplopia, Denies eye discharge, Denies loss of vision and Denies eye pain ENT: Denies dizziness Cardiovascular: Cardiovascular: Reports no additional cardiovascular complaints, Denies chest pain, Denies lightheadedness, Denies Loss of Consciousness and Denies dyspnea Respiratory: Respiratory: Reports no additional respiratory complaints and Denies dyspnea Gastrointestinal: Gastrointestinal: Reports no additional gastrointestinal complaints, Denies abdominal pain, Denies melena, Denies hematochezia, Denies change in bowel habits, Denies change in stool character and Reports GI cramping (normal period cramping) Genitourinary: Genitourinary: Denies hematuria, Denies urinary frequency, Denies dysuria, Denies urinary incontinence, Denies urinary hesitancy and Denies urinary urgency Musculoskeletal: Musculoskeletal: Reports no additional musculoskeletal complaints, Denies numbness and Denies tingling Comments: left sided rib pain Neurologic: Denies dizziness, Denies loss of vision, Denies numbness and Denies tingling Psychiatric: Psychiatric: Reports anxiety, Reports auditory hallucinations, Denies homicidal ideation and Reports suicidal ideation Endocrine: Endocrine: Reports no additional endocrine complaints Hematologic/Lymphatic: Hematologic/Lymphatic: Reports no additional hematologic/lymphatic complaints Allergic/Immunologic: Allergic/Immunologic: Reports no additional allergic/immunologic complaints PMFSH Past Medical History Attestation statement: The following information was validated with the patient. Source: old records reviewed and nursing notes reviewed Medical History Urinary tract infection Suicidal ideation Substance abuse Bipolar disorder Anxiety Depression Anxiety and depression Nausea & vomiting History of irregular heartbeat Acute posttraumatic stress disorder UTI (urinary tract infection) Asthma exacerbation Surgical History History of surgery Hx of section Social History Social History Household Members: Spouse and Children Household Members Other:: Every other week, partners 2 children come to stay with him Saturday- Saturday Housing: Apartment Do you presently have visiting nurse or other home services: No Alcohol intake: former Patient Tobacco Use Status: Former Tobacco user Tobacco use type: Smokeless Tobacco Cigarette Packs Per Day: 0.5 Cigarettes Per Day: 10.0 Years Smoked: 23 e-Cigarette/Vaping Use: Currently Using Second Hand Smoke Exposure: Yes Substance Use Type: Crack/Cocaine and Marijuana Advance Directives: No Advance Directives Information Provided: Yes service: No Sexual orientation: Straight/Heterosexual Physical Exam ED Vital Signs: Vital Signs - 24 hr 10/21/24 12:38 10/21/24 14:26 10/21/24 19:55 Temperature 97.2 F 98.3 F 97.3 F Pulse Rate 68 66 64 Respiratory Rate 14 14 18 Blood Pressure 100/58 L 185/96 H 103/64 Pulse Oximetry 97 99 97 Oxygen Delivery Method Room Air Room Air Room Air 10/21/24 20:19 10/22/24 05:51 Temperature 97.7 F Pulse Rate 65 Respiratory Rate 16 Blood Pressure 103/64 115/62 Pulse Oximetry 99 Oxygen Delivery Method Room Air BMI result Body Mass Index 32.0 Const General: cooperative, no acute distress, alert and awake Nutritional Appearance: well nourished Orientation/consciousness: patient oriented x3 HENMT Head: Yes normal to inspection and Yes atraumatic Ears: hearing grossly normal bilaterally and external ears normal General nose exam: Normal external nose present, no nasal discharge noted and no epistaxis Face and sinus: Yes normal facial exam, No abrasion and No laceration Mouth: Normal oral and palatal mucosa present, no drooling and no muffled voice Eyes General: appearance normal, both eyes and all related structures Periorbital: periorbital findings normal Eyelids: Yes eyelids normal Conjunctivae: conjunctivae normal Pupils: Equal, round and reactive pupils present EOM: EOMs intact bilaterally Neck Neck: Yes normal visual inspection, Yes full ROM and Yes no lymphadenopathy Resp Effort & Inspection: normal respiratory effort and able to speak in complete sentences Neuro General: patient oriented x3, moves all extremities and CN's II-XI intact bilaterally Cranial nerves: Yes Equal, round and reactive pupils present Cognition (Neuro): normal cognition Extrem General: Yes normal to inspection, Yes full ROM and Yes capillary refill normal Psych Appearance: grossly normal Mental Status: mental status grossly normal Affect: normal affect Attitude: cooperative Thought process: Normal thought process present Thought content: Normal thought content present Insight: Good insight present (Psych) Medications Administered Generic Name Dose Route Start Last Admin Trade Name Freq PRN Reason Stop Dose Admin Docusate Sodium 100 mg 10/21/24 21:00 10/22/24 08:16 Docusate Sodium 100 Mg Capsule PO 100 mg BID SERENA Administration Fluticasone Propionate 1 puff 10/21/24 20:00 10/22/24 08:15 Fluticasone Propionate 250 Mcg Blst.W.Dev INHALE 1 puff RBID SERENA Administration Gabapentin 100 mg 10/21/24 21:00 10/22/24 08:16 Gabapentin 100 Mg Capsule PO 100 mg TID SERENA Administration Hydroxyzine HCl 100 mg 10/21/24 15:53 10/22/24 08:18 Hydroxyzine Hcl 50 Mg Tablet PO 100 mg TID PRN Administration anxiety Nitrofurantoin Macrocrystals 100 mg 10/21/24 09:45 10/22/24 08:16 Nitrofurantoin Monohyd/M-Cryst 100 Mg Capsule PO 10/28/24 09:44 100 mg BID SERENA Administration Olanzapine 30 mg 10/21/24 21:00 10/21/24 20:20 Olanzapine 10 Mg Tablet PO 30 mg BEDTIME SERENA Administration Omeprazole 20 mg 10/21/24 16:30 10/22/24 05:26 Omeprazole 20 Mg Capsule.Dr PO 20 mg BID@0630,1630 SERENA Administration Polyethylene Glycol 17 gm 10/22/24 09:00 10/22/24 08:16 Polyethylene Glycol 3350 17 Gm Powd.Pack PO 17 gm DAILY SERENA Administration Prazosin HCl 5 mg 10/21/24 21:00 10/21/24 20:19 Prazosin Hcl 5 Mg Capsule PO 5 mg BEDTIME SERENA Administration Protocol Quetiapine Fumarate 50 mg 10/21/24 15:53 10/22/24 08:18 Quetiapine Fumarate 50 Mg Tablet PO 50 mg TID PRN Administration panic attack Sertraline HCl 200 mg 10/22/24 09:00 10/22/24 08:23 Sertraline Hcl 100 Mg Tablet PO 200 mg DAILY SERENA Administration Trazodone HCl 250 mg 10/21/24 21:00 10/21/24 20:20 Trazodone Hcl 50 Mg Tablet PO 250 mg BEDTIME SERENA Administration Discontinued Medications Generic Name Dose Route Start Last Admin Trade Name Serena PRN Reason Stop Dose Admin Ibuprofen 600 mg 10/21/24 09:07 10/21/24 09:27 Ibuprofen 600 Mg Tablet PO 10/21/24 09:08 600 mg ONCE ONE Administration Ibuprofen 600 mg 10/22/24 08:21 10/22/24 08:24 Ibuprofen 600 Mg Tablet PO 10/22/24 08:22 600 mg ONCE ONE Administration Lorazepam 2 mg 10/21/24 09:34 10/21/24 09:48 Lorazepam 1 Mg Tablet PO 10/21/24 09:35 2 mg ONCE ONE Administration Ondansetron HCl 4 mg 10/21/24 13:57 10/21/24 14:09 Ondansetron Odt 4 Mg Tab.Rapdis TRANSLINGU 10/21/24 13:58 4 mg ONCE ONE Administration Medical Decision Making Medical Decision Making MDM Narrative: Patient is a 38 year old assigned female at with a history of cocaine use disorder, MDD, DAVE, bipolar disorder, and cocaine use disorder presenting to the emergency department today with suicidal ideation, auditory hallucinations, left rib pain after a fall, and increased anxiety. Patient's physical exam was as noted in the physical exam portion of this note. Patient's blood work was unremarkable. Patient's urine showed a possibel UTI, given her symptoms of period cramping and UA - will treat. Patient's left ribs / chest x-ray showed no acute process. Patient was evaluated by the CARE team who recommended inpatient level of psychiatric care. I explained my physical exam findings as well as all test results to the patient. I answered all questions asked by the patient. Patient received PO ibuprofen for menstral cramps, PO Ativan for anxiety, and PO cefuroxime for UTI. Patient will remain in observation in the department pending either admission to our psychiatric inpatient unit or transfer to an appropriate psychiatric facility. Time: 12:34 Date: 10/22/24 Provider: Brian Daurte MD Physician observation ended at 12:32 hours. was evaluated by the care team recommended admission For further psychiatric treatment. The patient My accepted to our inpatient psychiatric unit for safety, mood stabilization, medication evaluation and participation in therapy treatment options. Differential Diagnosis Differential Diagnoses: The differential diagnosis associated with the presentation includes SI Auditory hallucinations UTI Rib contusion Admission/Observation Consideration of admission/observation: Escalation of care including admission/observation considered Patient will either be admitted here to our inpatient psychiatric facility or transferred to an appropriate psychiatric facility. Consult Healthcare Provider Management of the patient was discussed with: Behavioral Health Provider (spoke with the CARE team as noted in the MDM Rationale portion of this note. ) Lab Data MDM Lab Attestation statement: I reviewed the patient's lab results. My interpretation of these results are in the MDM Rationale portion of this note. 10/21/24 08:45 10/21/24 08:45 Labs: Lab Results 10/21/24 10/21/24 Range/Units 08:45 09:01 WBC 11.9 H (4.8-10.8) X10*3/uL RBC 5.30 (4.20-5.50) X10*6/uL Hgb 12.1 (12.0-16.0) g/dl Hct 36.9 L (37.0-47.0) % MCV 69.6 L (80.0-98.0) fL MCH 22.8 L (27.0-33.0) pg MCHC 32.8 (31.0-35.0) g/dl RDW 17.1 H (11.0-16.0) % Plt Count 479 H (160-400) X10*3/uL MPV 9.4 (9.4-12.3) fL Immature Gran % (Auto) 0.4 (0.0-0.4) % Neut % (Auto) 76.4 H (45-73) % Lymph % (Auto) 18.5 L (20-40) % [place] % (Auto) 4.0 (2-11) % Eos % (Auto) 0.4 (0-4) % Baso % (Auto) 0.3 (0-2) % Lymph # (Auto) 2.2 (1.2-4.9) X10*3/uL [place] # (Auto) 0.5 (0.1-1.2) X10*3/uL Eos # (Auto) 0.1 (0.0-0.4) X10*3/uL Baso # (Auto) 0.0 (0.0-0.2) X10*3/uL Abs Immat Gran (auto) 0.05 H (0.00-0.03) X10*3/uL Absolute Neuts (auto) 9.1 H (2.0-8.3) x10*3/uL Absolute Nucleated RBC 0.000 (0.0-0.012) X10*3/uL Nucleated RBC % (auto) 0.0 (0.0-0.2) /100WBC Sodium 140 (135-145) mmol/L Potassium 4.4 (3.3-5.1) mmol/L Chloride 108 (96-108) mmol/L Carbon Dioxide 23 (22-29) mmol/L Anion Gap 13 (12-20) BUN 14 (9-16) mg/dL Creatinine 0.81 (0.5-1.4) mg/dL Estim Creat Clear Calc 118.7 Estimated GFR > 60 Random Glucose 100 (60-115) mg/dL Calcium 9.3 (8.4-10.2) mg/dL Total Bilirubin 0.6 (0.0-1.0) mg/dL AST 22 (5-31) U/L ALT 25 (0-31) U/L Alkaline Phosphatase 101 (39-117) U/L Total Protein 8.7 H (6.5-8.0) g/dL Albumin 4.4 (3.5-5.0) g/dL Urine Color RED Urine Appearance Cloudy Urine pH 6.5 (5.0-9.0) Ur Specific [place] 1.020 (1.005-1.025) Urine Protein 300 (3+) H (Neg-Trace) mg/dL Urine Glucose (UA) 100 H (Negative) mg/dL Urine Ketones 15 (Negative) mg/dL Urine Blood Large (3+) H (Negative) Urine Nitrite Positive H (Negative) Ur Leukocyte Esterase Small (1+) H (Negative) Urine RBC >20 H (0-2) /HPF Urine WBC >50 H (0-5) /HPF Ur Squamous Epith Cells 6-10 (0-2) /HPF Urine Bacteria 4+ (None Seen) Hyaline Casts 0-2 (0-2) /LPF Urine Opiates Screen Not Detected (Not Detect) Ur Buprenorphine Scrn Not Detected (Not Detect) ng/mL Ur Oxycodone Screen Not Detected (Not Detect) ng/mL Urine Methadone Screen Not Detected (Not Detect) ng/mL Urine Fentanyl Screen Not Detected (Not Detect) Ur Barbiturates Screen Not Detected (Not Detect) Ur Phencyclidine Scrn Not Detected (Not Detect) Ur Amphetamines Screen Not Detected (Not Detect) U Benzodiazepines Scrn Not Detected (Not Detect) Urine Cocaine Screen Not Detected (Not Detect) U Marijuana (THC) Screen POSITIVE H (Not Detect) Independent Interpretation I performed an independent interpretation of an: EKG and Plain X-Ray Interpretation: My interpretation is in agreement with the radiologist's impression of this imaging study. L EXAMINATION: XR RIBS 3 VIEWS MINIMUM WITH CHEST LEFT HISTORY: pain, injury COMPARISON: Comparison is made with the prior examination of the chest dated 06/21/2023. FINDINGS: A single PA view of the chest and 3 views of the left ribs are submitted. The lungs are expanded and clear. There is no pleural effusion, pneumothorax, or pulmonary vascular congestion. The heart is normal in size. The left ribs are intact. No fracture is seen. XR/XR ribs LT min 3V w CXR1V IMPRESSION: No acute cardiopulmonary abnormality. No evidence of fracture of the left ribs. Electronically signed by: Tavares Andres MD 10/21/2024 09:56 AM EDT RP Dictated By: Tavares Andres MD Signed By: Electronically signed by Tavares Andres MD 10/21/24 0956 I independently interpreted this EKG and am in agreement with the below findings: Vent. Rate: 74 BPM Atrial Rate: 74 BPM P-R Int: 140 ms QRS Dur: 74 ms QT Int: 370 ms P-R-T Axes: 33 58 53 degrees QTcB Int: 410 ms Normal sinus rhythm Nonspecific T wave abnormality When compared with ECG of 31-Aug-2024 07:32, No significant change was found DD/ [id number] Radiology Impression Discussion of test interpretation with radiology: I have reviewed the radiologist's reading. External Record Review External record reviewed: Inpatient record and Outpatient record Critical Care Time Critical Care Time Critical Care Time: Yes Total Critical Care Time: 32 Attestation: I spent 32 minutes of Critical Care Time with this patient. This does not include time spent on separately reported billable procedures. Discharge Plan Discharge Clinical Impression: Suicidal ideation, UTI (urinary tract infection), Auditory hallucination Patient Disposition: Admitted As Inpatient Interventions: [place]-Suicide Risk Severity Scale Last Done: 10/22/24 10:00 Discharge Date/Time: 10/22/24 12:33
[2024-10-21 09:07] LABS: Alanine Aminotransferase 25 U/L (0-31); Albumin Level 4.4 g/dL (3.5-5.0); Alkaline Phosphatase 101 U/L (39-117); Anion Gap 13 (12-20); Aspartate Amino Transferase 22 U/L (5-31); Bilirubin Total 0.6 mg/dL (0.0-1.0); Blood Urea Nitrogen 14 mg/dL (9-16); Calcium 9.3 mg/dL (8.4-10.2); Carbon Dioxide 23 mmol/L (22-29); Chloride 108 mmol/L (96-108); Creatinine Clr Calc Pharmacy 118.7; Estimated Glomerular Filt Rate > 60; Glucose Random 100 mg/dL (60-115); Potassium 4.4 mmol/L (3.3-5.1); Sodium 140 mmol/L (135-145); Total Protein 8.7 g/dL (6.5-8.0)
[2024-10-21 09:08] LABS: Appearance Urine Cloudy; Color Urine RED; Glucose Urine UA 100 mg/dL (Negative); Leukocyte Esterase Urine Small (1+) (Negative); Nitrite Urine Positive (Negative); PH 6.5 (5.0-9.0); UMIC TRIGGER UACC YES; Urine Blood Large (3+) (Negative); Urine Ketones 15 mg/dL (Negative); Urine Protein 300 (3+) mg/dL (Neg-Trace)
[2024-10-21 09:15] LABS: Bacteria Urine 4+ (None Seen); Hyaline Casts Urine 0-2 /LPF (0-2); RBC Urine >20 /HPF (0-2); UACC Culture Trigger YES; WBC Urine >50 /HPF (0-5)
[2024-10-21] MEDS: Ibuprofen 600 MG TABLET PO (09:27)
[2024-10-21 09:37] LABS: Amphetamine Screen Urine Not Detected (Not Detect); Barbiturates, Urine Not Detected (Not Detect); Benzodiazepines Screen Urine Not Detected (Not Detect); Buprenorphine Scr Not Detected (Not Detect); Cannabinoid Screen Urine POSITIVE (Not Detect); Cocaine Screen Urine Not Detected (Not Detect); Fentanyl, urine Not Detected (Not Detect); Methadone Screen, Urine Not Detected (Not Detect); Opiate Screen Urine Not Detected (Not Detect); Oxycodone Screen Urine Not Detected (Not Detect); Phencyclidine Screen Urine Not Detected (Not Detect)
[2024-10-21] MEDS: LORazepam 1 MG TABLET 2 MG PO (09:48)
[2024-10-21] MEDS: Nitrofurantoin Monohyd/M-Cryst 100 MG CAPSULE PO ×2 (09:49→20:20)
--- OUTSIDE RECORDS SUMMARY | 2024-10-21 11:10 | XMS_ITS | Patient Health Record ---
Author Organization [facility] Address [address] [place] [address] Care Team Providers Care Assembler Movement Name Role Phone CAROLYN KAUR M.D. Primary Care Provider Arnulfo Draper Jr Unavailable [phone] Allergies Allergen (clinical drug ingredient) Drug/Non Drug Allergy documented on EMR Reaction Allergy Type Onset Date Status Penicillin Unknown Drug Allergy Active almond allergenic extract [place] (Diagnostic) Unknown Drug Allergy Active Results Component Value Reference Range Notes Ur Preg Test Reviewed date:10/31/2023 07:42:02 AM Interpretation: Performing Lab:[facility], [address] [place] [phone] Notes/Report: Urine NEGATIVE NEGATIVE This test was developed to detect early . False negative results may occur after the 5th - 7th week of when using this test method. If clinically indicated, consider a serum hCG. Drug Screen Urine Reviewed date:10/31/2023 07:42:29 AM Interpretation: Performing Lab:[address] [phone] Notes/Report: Opiate Screen Urine Not Detected Not Detect Opiate cut-off is 300 ng/mL. Positive results are unconfirmed and should not be used for non-medical purposes. Barbiturates, Urine Not Detected Not Detect Barbiturate cut-off is 200 ng/mL. Positive results are unconfirmed and should not be used for non-medical purposes. Phencyclidine Screen Urine Not Detected Not Detect Phencyclidine cut-off is 25 ng/mL. Positive results are unconfirmed and should not be used for non-medical purposes. Amphetamine Screen Urine Not Detected Not Detect Amphetamine cut-off is 1000 ng/mL. Positive results are unconfirmed and should not be used for non-medical purposes. Benzodiazepines Screen Urine Not Detected Not Detect Benzodiazepine cut-off is 200 ng/mL. Positive results are unconfirmed and should not be used for non-medical purposes. Cocaine Screen Urine Not Detected Not Detect Cocaine cut-off is 300 ng/mL. Positive results are unconfirmed and should not be used for non-medical purposes. Cannabinoid Screen Urine POSITIVE Not Detect Cannabinoid cut-off is 50 ng/mL. Positive results are unconfirmed and should not be used for non-medical purposes. Methadone Screen, Urine Not Detected Not Detect ng/mL Methadone cut-off is 300 ng/mL. Positive results are unconfirmed and should not be used for non-medical purposes. Fentanyl, urine Not Detected Not Detect Fentanyl cut-off is 1 ng/mL. Positive results are unconfirmed and should not be used for non-medical purposes. Oxycodone Screen Urine Not Detected Not Detect ng/mL Oxycodone cut-off is 100 ng/mL. Positive results are unconfirmed and should not be used for non-medical purposes. Buprenorphine Scr Not Detected Not Detect ng/mL Buprenorphine cut-off is 5 ng/mL. Positive results are unconfirmed and should not be used for non-medical purposes. Pathology Reviewed date:11/06/2023 08:03:47 AM Interpretation: Performing Lab:[facility], [address] [place] [phone] Notes/Report: ----- Name: Alise Yanes Age/Sex: 38/F : 1985 Unit#: [id number] Attend Dr: Arnulfo Amezquita MD Re10/30/23 Status : [facility] Location: HO.SSS Disch: ----- SPEC : [id number] RECD : 10/31/23 STATUS: [facility] NUM: [id number] DEO: 10/30/[address] [facility] [address]: Arnulfo Amezquita MD ENTERED: 10/31/23 SP TYPE: Surgical OTHR DR: ORDERED: HE Stain/9, Gross Micro L4/3, IHC, Special st. 2, H. pylori/3, AB/PAS/3 Diagnosis A. Duodenum, biopsy: Duodenal mucosa with mildly increased intraepithelial lymphocytes and preserved villou s architecture. See comment. B. Stomach, antrum, biopsy: Antral-type and oxyntic mucosa with moderate chronic inactive inflammatio n; no Helicobacter organisms seen. C. EG junction, biopsy: - Active esophagitis (maximum eosinophil count 1 per high powered field). - No glandular epith elium present. COMMENT: The finding s in the duodenum are non-specific. The differential diagnosis is broad and includes infection (e.g. viral or H. pylori), medication/drugs (e.g. NSAIDs), gluten sensitivity/c eliac disease, bacterial overgrowth, tropical sprue, immunodeficiency syndromes (e.g. IgA deficiency, CVID), autoimmune enteropathy, Crohns and collagen vascular disease, am edgar others. Please correlate with clinical and other laboratory findings. Clinical History Pre-Op Dx: Epigastri c pain Post-Op Dx: GERD Microscopic Description A-C. Microscopic sec tions examined. No metaplastic changes are seen, supported by AB/PAS stains (A and B); no Helicobacter organisms are seen, supported by H. pylori immunostain (B). Material Received A. Duodenal bx B. Antrum bx C. EG junction bx Gross Description Received in three parts. Part A: Received in formalin labeled ?duodenal bx? are 2 donohue irregular tissue fragments measuring 0.2 and 0. 3 cm, submitted in toto in a cassette labeled A. Part B: Received in formalin labeled ?antrum bx? are 2 jones-donohue irregular and rectangular CONTINUED ON NEXT PAGE ----- Name: Alise Yanes Age/Sex: 38/F : 1985 Unit#: [id number] Attend Dr: Arnulfo Amezquita MD Re10/30/23 Status : [facility] Location: HOSSS Disch: ----- SPEC : [id number] RECD : 10/31/23 STATUS: [facility] NUM: [id number] DEO: 10/30/23-[address] [facility] [address]: Arnulfo Amezquita MD ENTERED: 10/31/23 39 SP TYPE: Surgical OTHR DR: ORDERED: HE Stain/9, Gross Micro L4/3, IHC, Special st. 2/3, H. pylori/3, AB/PAS/3 Gross Description (Continued) tissue fragments measuring 0.25 and 0.4 cm, submitted in toto in a cassette labeled B. Part C: Received in formalin labeled ?EG junction bx? are 2 jones-white irregular and rectangular tissue fragments measuring 0.25 and 0.4 cm, submitted in toto in a cassette labeled C. CEDS Special studies orde red and performed: Immunostain for H. pylori on B; AB/PAS stains on A and B ----- Signed (signature on file) Alex Harry MD 11/04/23 1015 ----- END OF REPORT Reason For Referral No Information Medications Medication SIG (Take, Route, Fr equency, Duration) Notes Start Date End Date Status Omeprazole 20 MG 1 Orally b.i.d. for 30 day(s) 09/09/2023 Active clonazePAM 0.5 MG TAKE 1 TABLET BY EMILY ONCE DAILY NEEDED DIRECTED Oral for 30 Active EPINEPHrine 0.3 MG/0.3ML INJECT INTRAMUS CULARLY DIRECTED ON PACKAGE AND GO TO EMERGENCY ROOM Injection for 1 Active OLANZapine 10 MG TAKE 1 TABLET BY EMILY TWICE DAILY Oral for 90 Active Prazosin HCl 1 MG TAKE 3 CAPSULES BY M OUT EVERY DAY Oral for 30 Active Benztropine Mesylate 0.5 MG TAKE 1 TABLET BY MOUTH TWICE DAILY Oral for 90 Active Haloperidol 5 MG TAKE 1 TABLET BY EMILY TWICE DAILY Oral for 30 Active metFORMIN HCl 500 MG TAKE 1 TABLET BY MO [facility] AT BEDTIME Oral for 30 Active traZODone HCl 100 MG TAKE 2 AND 1/2 TABL ETS BY MOUTH EVERY DAY AT BEDTIME Oral for 30 Active Capsaicin 0.025 % APPLY 1 GRAM TOPICAL LY TO AFFECTED AREA(S) FOUR TIMES DAILY NEEDED External for 30 Active QUEtiapine Fumarate 50 MG TAKE 1 TABLET BY MOUTH THREE TIMES DAILY Oral for 30 Active Sertraline HCl 50 MG TAKE 3 TABLETS BY M OUT EVERY DAY Oral for 30 Active Omeprazole 20 MG TAKE 1 CAPSULE BY MO UTH TWICE DAILY AT 630am AND 430pm Oral for 15 Active hydrOXYzine Pamoate 25 MG TAKE 1 CAPSULE BY MOUTH TWICE DAILY NEEDED ANXIETY Oral for 30 Active Ziprasidone HCl 20 MG TAKE 1 CAPSULE BY MOUTH TWICE DAILY NEEDED FOR AGITATION OR ANXIETY Oral for 30 Active Arnuity Ellipta 100 MCG/ACT INHALE 1 PUFF BY MOUTH EVERY DAY AT THE SAME TIME Inhalation for 30 Active 27-1 MG TAKE 1 TABLET BY EMILY TH EVERY DAY Oral for 90 Active Immunizations Vaccine Route Administration Date Status Comme nts Influenza Unknown 08/06/2023 Administered Problems Problem Type SNOMED Code ICD Code Onset Dates Problem Status W/U Status Risk Notes Problem 03981937 Epigastric pain (R10.13) Active confirmed Problem Gastroesophageal reflux disease (K21.9) Active confirmed Problem 8873337 Hematemesis with nausea (K92.0) Active confirmed Problem 94166124 Nausea and vomit ing, unspecified vomiting type (R11.2) Active confirmed Encounters Encounter Location Date Provider Diagnosis [facility] Outpatient [address], [place] [phone] 10/30/2023 Arnulfo Amezquita Jr Abdominal pain, epigastric R10.13 and Gastroesophageal reflux disease K21.9 [facility] [address] [place] [address] 11/06/2023 Arnulfo Amezquita Jr Epigastric pain R10.13 Assessments Encounter Date Diagnosis (ICD Code) Assessment Notes Treatment Notes Treatment Clinical Notes Section Notes 10/30/2023 Gastroesophageal reflux disease (ICD-10 - K21.9) 10/30/2023 Abdominal pain, epigastric (ICD-10 - R10.13) 11/06/2023 Epigastric pain (ICD-10 - R10.13) Plan Of Treatment Pending Test Test Name Order Date CELIAC PANEL #10 11/06/2023 Future Test Test Name Order Date UPPER GI ENDOSCOPY 09/09/2023 Insurance Providers Payer Name Payer Address Payer Phone Subscriber Number Group Number Insured Name Patient Relationship to Insured Coverage Start Date Coverage End Date MEDICA[employer] OF [employer] [address] [place] [address] [phone] [id number] ALISE YANES Self - patient is the insured Medical (General) History Medical History History ICD Code Asthma Anxiety/depression Panic attacks Substance abuse Surgical History Surgery Date(Month/Year) section and ovary surgery Hospitalization History Reason Date(Month/Year) 13 days in the hospital for a panic merle ck last week
--- OUTSIDE RECORDS SUMMARY | 2024-10-21 11:10 | XMS_ITS | Encounter Summary ---
Author Organization [employer] Address [address] [place] [address] Care Team Providers Care Chief Operator Name Role Phone Adrianne Becerril MD Primary Care Provider [phone] Encounter Details Date Type Department Care Team ([facility] Contact Info) Description 10/21/2024 Orders Only GENERIC EXTERNAL DATA DEPARTMENT Provider, Generic External Data Social History Tobacco Use Types Packs/Day Years Used Date Smoking Tobacco: Former Passive Smoke Exposure: Past Smokeless Tobacco: Never Alcohol Use Standard Drinks/Week Comments Not Currently 0 (1 standard drink = 0.6 oz pur e alcohol) Depression Answer Date Recorded Patient Health Questionnaire-9 Score 0 09/17/2024 Patient Health Questionnaire-9 Score 0 09/17/2024 Last PHQ-9: Questionnaire Data Not on file 0 09/17/2024 Housing Stability Answer Date Recorded What is your housing situation today? I have housing today, but I am worried about losing housing in the future 10/07/[address] you li ve. Do you have problems with any of the following? None of the above 10/07/2024 Food Insecurity Answer Date Recorded Within the past 12 months, y ou worried that your food would run out before you got money to buy more: Sometimes True 2024 Within the past 12 months,th e food you bought just didn't last and you didn't have enough money to get more: Sometimes True 10/07/2024 Transportation Answer Date Recorded In the past 12 months, has l ack of transportation kept you from medical appts, meetings, work or from getting things needed for daily living? Yes, it has kept me from medical appointments or getting medications. 10/07/2024 Utilities Answer Date Recorded In the past 12 months, has t he electric, gas, oil or water company threatened to shut off services in your home? No 09/17/2024 Depression Answer Date Recorded Patient Health Questionnaire-2 Score 0 09/17/2024 Internet Access Answer Date Recorded Internet Access Q1 Yes 10/07/2024 Internet Access Q2 I do not want or need it 09/16 Comments No Sex and Gender Information Value Date Recorded Sex Assigned at Female 04/16/2022 10:40 AM EDT Legal Sex Female 10:40 AM EDT Gender Identity Female 04/16/2022 10:40 AM EDT Sexual Orientation Straight 04/16/2022 10 :40 AM EDT documented as of this encounter Plan of Treatment Not on file documented as of this encounter Procedures Procedure Name Priority Date/Time Associated Diagnosis Comments XR RIBS 3 VIEWS LEFT W CHEST Routine 10/21/2024 9:07 AM EDT URINALYSIS, COMPLETE, WITH REFLEX TO CULTURE Routine 10/21/2024 9:01 AM EDT DRUG MONITOR, PANEL 1, SCREEN, URINE Routine 10/21/2024 9:01 AM EDT CBC WITH AUTO DIFFERENTIAL Routine 10/21/2024 8:45 AM EDT COMPREHENSIVE METABOLIC PANEL Routine 10/21/2024 8:45 AM EDT documented in this encounter Results * XR Ribs 3 Views Left w/ Chest (10/21/2024 9:07 AM EDT) Anatomical Region Laterality Modality Radiographic Danyell ging 10/21/2024 9:07 AM EDT Narrative 10/21/2024 9:59 AM EDT ? [facility] ?[address] ?[place] [address] ?XRay Report ? Signed ? Patient: Manan Kumar,Kymberly ?MR#: [id number] ?? [id number] ? : 1985 ?Acct:[id number] ? Age/Sex: 38 / F ?ADM Date: 05/07/25 ? Loc: HO.ED ? Attending Dr: ? Ordering Physician: Allyson Ferrara ?? Date of Service: 10/21/24 ?? Procedure(s): XR ribs LT min 3V w CXR1V ?? Accession Number(s): [id number] ? cc: Allyson Ferrara; Adrianne Becerril ? EXAMINATION: ??XR RIBS 3 VIEWS MINIMUM WITH CHEST LEFT ? HISTORY: pain, injury ? COMPARISON: Comparison is made with the prior examination of the chest ?? dated 06/21/2023. ? FINDINGS: ??A single PA view of the chest and 3 views of the left ribs ?? are submitted. The lungs are expanded and clear. There is no pleural ?? effusion, pneumothorax, or pulmonary vascular congestion. The heart is ?? normal in size. The left ribs are intact. No fracture is seen. ? XR/XR ribs LT min 3V w CXR1V ?? IMPRESSION: ?? No acute cardiopulmonary abnormality. No evidence of fracture of the ?? left ribs. ? Electronically signed by: ??Tavares Andres MD ??10/21/2024 09:56 AM EDT ? Dictated By: ?Tavares Andres MD ? Signed By: ?<Electronically signed by Tavares Andres MD in OV> ?10/21/24 0956 ? DD/ 0907 ? TD/TT: 10/21/24 0940 ? [employer]sman: ? Procedure Note Jamarcus Flanagan - 10/21/[address] [address] XRay Report Signed Patient: Kymberly MelgarMR#: [id number] : 1985Acct:[id number] Age/Sex: 38 / FADM Date: 10/21/24 Loc: HO.ED Attending Dr: Ordering Physician: Allyson Ferrara Date of Service: 10/21/24 Procedure(s): XR ribs LT min 3V w CXR1V Accession Number(s): [id number] cc: Allyson Ferrara; Adrianne Becerril EXAMINATION: XR RIBS 3 VIEWS MINIMUM WITH CHEST LEFT HISTORY: pain, injury COMPARISON: Comparison is made with the prior examination of the chest dated 06/21/2023. FINDINGS: A single PA view of the chest and 3 views of the left ribs are submitted. The lungs are expanded and clear. There is no pleural effusion, pneumothorax, or pulmonary vascular congestion. The heart is normal in size. The left ribs are intact. No fracture is seen. XR/XR ribs LT min 3V w CXR1V IMPRESSION: No acute cardiopulmonary abnormality. No evidence of fracture of the left ribs. Electronically signed by: Tavares Andres MD 10/21/2024 09:56 AM EDT RP Dictated By: Tavares Andres MD Signed By: <Electronically signed by Tavares Andres MD in OV> 10/21/24 0956 DD/ TD/TT: 10/21/24 0940 [employer]: [facility] External Provider IMG XR PROCEDURES Final Result * (ABNORMAL) Drug Monitoring, Panel 1, Screen, Urine (10/21/2024 9:01 AM EDT) Opiate Screen Urine Not Detected Not Detect [facility] Comment:Opiate cut-off is 30 0 ng/mL.Positive results are unconfirmed and should not be used fornon-medical purposes. Barbiturates, Urine Not Detected Not Detect [facility] Comment:Barbiturate cut-off is 200 ng/mL.Positive results are unconfirmed and should not be used fornon-medical purposes. Phencyclidine Screen Urine Not Detected Not Detect [facility] Comment:Phencyclidine cut-of f is 25 ng/mL.Positive results are unconfirmed and should not be used fornon-medical purposes. Amphetamine Screen Urine Not Detected Not Detect [facility] Comment:Amphetamine cut-off is 1000 ng/mL.Positive results are unconfirmed and should not be used fornon-medical purposes. Benzodiazepines Screen Urine Not Detected Not Detect [facility] Comment:Benzodiazepine cut-o ff is 200 ng/mL.Positive results are unconfirmed and should not be used fornon-medical purposes. Cocaine Screen Urine Not Detected Not Detect [facility] Comment:Cocaine cut-off is 3 00 ng/mL.Positive results are unconfirmed and should not be used fornon-medical purposes. Cannabinoid Screen Urine POSITIVE(A) Not Detect [facility] Comment:Cannabinoid cut-off is 50 ng/mL.Positive results are unconfirmed and should not be used fornon-medical purposes. Methadone Screen, Urine Not Detected Not Detect ng/mL [facility] Comment:Methadone cut-off is 300 ng/mL.Positive results are unconfirmed and should not be used fornon-medical purposes. FENTANYL URINE Not Detected Not Detect [facility] Comment:Fentanyl cut-off is 1 ng/mL.Positive results are unconfirmed and should not be used fornon-medical purposes. Oxycodone Urine Screen Not Detected Not Detect ng/mL [facility] Comment:Oxycodone cut-off is 100 ng/mL.Positive results are unconfirmed and should not be used fornon-medical purposes. Buprenorphine Screen Not Detected Not Detect ng/mL [facility] Comment:Buprenorphine cut-of f is 5 ng/mL.Positive results are unconfirmed and should not be used fornon-medical purposes. 10/21/2024 9:01 AM EDT 10/21/2024 9:24 AM EDT us Generic External Data Provider LAB URINE ORDERAB LES Final Result [facility] [address] [place] [phone] * (ABNORMAL) Urinalysis, Complete, with Reflex to Culture (10/21/2024 9:01 AM EDT) Color Urine RED [facility] Appearance Urine Cloudy [facility] PH 6.5 5.0 - 9.0 [facility] Glucose Urine UA 100(A) Negative mg/dL [facility] Urine Blood Large (3+)(A) Negative [facility] Specific [place] - Urine 1.020 1.005 - 1.025 [facility] Urine Protein 300 (3+)(A) Neg-Trace mg/dL [facility] Urine Ketones 15 Negative mg/dL [facility] Nitrite Urine Positive(A ) Negative [facility] Leukocyte Esterase Urine Small (1+)(A) Negative [facility] RBC Urine >20(A) 0 - 2 /HPF [facility] Urine WBC >50(A) 0 - 5 /HPF [facility] Urine Squamous Epithelial Cell 6-10 0 - 2 /HPF [facility] Urine Bacteria 4+ None Seen [facility] Hyaline Casts, Urine 0-2 0 - 2 /LPF [facility] 10/21/2024 9:01 AM EDT 10/21/2024 9:05 AM EDT Narrative [facility] - 10/21/2024 9:16 AM EDT [id number], [employer] us Generic External Data Provider LAB URINE ORDERAB LES Final Result [facility] [address] [place] [phone] * (ABNORMAL) Comprehensive Metabolic Panel (10/21/2024 8:45 AM EDT) Sodium 140 135 - 145 mmol/L [facility] Potassium 4.4 3.3 - 5.1 mmol/L [facility] Chloride 108 96 - 108 mmol/L [facility] Carbon Dioxide 23 22 - 29 mmol/L [facility] Anion Gap 13 12 - 20 [facility] Urea Nitrogen (BUN) 14 9 - 16 mg/dL [facility] Creatinine, Serum 0.81 0.5 - 1.4 mg/dL [facility] Creatinine Clr Calc Pharmacy 118.7 [facility] Comment:Provided height and weight: 175.26 cm,98.4 kg.eGFR (calculated from the MDRD study equation) and eCrCl(calculated from the Cockcroft-Gault equation) are based ondifferent parameters and may not yield comparable results.If eCrCl result is absurd, please check patient'sheight/weight. Estimated Glomerular Filt Rate >60 [facility] Comment:Chronic Kidney Disea se: Estimated GFR < 60 mL/min/1.72v0Aydonm Kidney Disease: Estimated GFR < 15 mL/min/1.73m2 Glucose 100 60 - 115 mg/dL [facility] Calcium 9.3 8.4 - 10.2 mg/dL [facility] Bilirubin, Total 0.6 0.0 - 1.0 mg/dL [facility] Aspartate Amino Transferase 22 5 - 31 U/L [facility] Alanine Aminotransferase 25 0 - 31 U/L [facility] Total Protein 8.7(H) 6.5 - 8.0 g/dL [facility] Albumin Level 4.4 3.5 - 5.0 g/dL [facility] Alkaline Phosphatase 101 39 - 117 U/L [facility] 10/21/2024 8:45 AM EDT 10/21/2024 8:50 AM EDT us Generic External Data Provider LAB BLOOD ORDERAB LES Final Result [facility] [address] [place] [address] [phone] * (ABNORMAL) CBC auto differential (10/21/2024 8:45 AM EDT) White Blood Count 11.9(H) 4.8 - 10.8 X10*3/uL [facility] Red Blood Count 5.30 4.20 - 5.50 X10*6/uL [facility] Hemoglobin 12.1 12.0 - 16.0 g/dl [facility] Hematocrit 36.9(L) 37.0 - 47.0 % [facility] Mean Corpuscular Volume 69.6(L) 80.0 - 98.0 fL [facility] Mean Corpuscular Hemoglobin 22.8(L) 27.0 - 33.0 pg [facility] Mean Corpuscular HGB Conc 32.8 31.0 - 35.0 g/dl [facility] Red Cell Distribution Width 17.1(H) 11.0 - 16.0 % [facility] Platelet Count 479(H) 160 - 400 X10*3/uL [facility] Mean Platelet Volume 9.4 9.4 - 12.3 fL [facility] Neutrophils Percent Auto 76.4(H) 45 - 73 % [facility] Imm Gran Pct Auto 0.4 0.0 - 0.4 % [facility] Lymphocytes Percent Auto 18.5(L) 20 - 40 % [facility] Monocytes Percent Auto 4.0 2 - 11 % [facility] Eosinophils Percent Auto 0.4 0 - 4 % [facility] Basophils Percent Auto 0.3 0 - 2 % [facility] NRBC Pct Auto 0.0 0.0 - 0.2 /100WBC [facility] Neutrophils Absolute Auto 9.1(H) 2.0 - 8.3 x10*3/uL [facility] Imm Gran Abs Auto 0.05(H) 0.00 - 0.03 X10*3/uL [facility] Lymphocytes Absolute Auto 2.2 1.2 - 4.9 X10*3/uL [facility] Monocytes Absolute Auto 0.5 0.1 - 1.2 X10*3/uL [facility] Eosinophils Absolute Auto 0.1 0.0 - 0.4 X10*3/uL [facility] Basophils Absolute Auto 0.0 0.0 - 0.2 X10*3/uL [facility] NRBC Abs Auto 0.000 0.0 - 0.012 X10*3/uL [facility] 10/21/2024 8:45 AM EDT 10/21/2024 8:50 AM EDT us Generic External Data Provider LAB BLOOD ORDERAB LES Final Result [facility] [address] [place] [phone] documented in this encounter Visit Diagnoses Not on filedocumented in this encounter Additional Health Concerns Assessment Noted Time PHQ-9 Depression Total Score: 0 09/18/19 25 1:38 PM EDT documented as of this encounter Care Teams Chief Operator Relationship Specialty Start Date End Date Adrianne Becerril MD [address] [place] [address] PCP - General Family Medicine 02/14/[address] Justice[employer] Cleaner 09/12/23 documented as of this encounter
--- OUTSIDE RECORDS SUMMARY | 2024-10-21 11:10 | XMS_ITS | Encounter Summary ---
Author Organization [employer] Address [address] [place] [address] 7 [place] [address] Care Team Providers Care Ld Teacher Name Role Phone Adrianne Becerril MD Primary Care Provider [phone] Reason for Visit * Reason Onset Date Comments Med Refill 10/13/2024 Encounter Details Date Type Department Care Team ([facility] st Contact Info) Description 10/13/2024 Refill [facility] [address] [place] [address] Kristie Bañuelos MD [address] [place] [address] Severe episode of recurrent major depressive disorder, with psychotic features (CMS/HCC) Social History Tobacco Use Types Packs/Day Years [...] documented as of this encounter Visit Diagnoses Diagnosis Severe episode of recurrent major depressive disorder, with psychotic features (CMS/HCC) documented in this encounter Additional Health Concerns Assessment Noted Time PHQ-9 Depression Total Score: 0 09/18/19 25 1:38 PM EDT documented as of this encounter Care Teams Ld Teacher Relationship Specialty Start Date End Date Adrianne Becerril MD [address] [place] [address] PCP - General Family Medicine 02/14/24 Angelica Merrill Degree ClerkWelfare Manager 09/12/23 documented as of this encounter
--- OUTSIDE RECORDS SUMMARY | 2024-10-21 11:10 | XMS_ITS ---
Author Organization [facility] Address [address] [place] [address] Care Team Providers Care Executive Consultant Name Role Phone CAROLYN KAUR M.D. Primary Care Provider Arnulfo Draper Jr [phone] REASON FOR VISIT epigastric pain Problems Problem Type SNOMED Code ICD Code Onset Dates Problem Status W/U Status Risk Notes Problem Gastroesophageal reflux disease (K21.9) Active confirmed Encounters Encounter Location Date Provider Diagnosis [facility] [place] [address] [place], [place] [id number] 10/30/2023 Arnulfo Amezquita Jr Abdominal pain, epigastric R10.13 and Gastroesophageal reflux disease K21.9 Assessments Encounter Date Diagnosis (ICD Code) Assessment Notes Treatment Notes Treatment Clinical Notes Section Notes 10/30/2023 Abdominal pain, epigastric (ICD-10 - R10.13) 10/30/2023 Gastroesophageal reflux disease (ICD-10 - K21.9) Plan Of Treatment No Information Progress Notes * MARY YANESENDOB:01/1986 (38 yo F)Acc No.[id number]:10/30/2023 EGD/MAC Patient:?MARY YANES Provider:?Arnulfo Amezquita MD :1985???Age:38 Y???Sex:Female D ate:10/30/2023 Address:[address] [facility] [place] [place] Pcp:CAROLYN KAUR M.D. Subjective: * Chief Complaints: * ???1. Epigastric pain. * Medical History:? Objective: * Vitals:? Assessment: * Assessment: 1.?Abdominal pain, epigastri c - R10.13 (Primary)???2.?Gastroesophageal reflux disease - K21.9??? Plan: * Treatment: * Procedure Codes:?63130 UPPER GI ENDOSCOPY, BIOPSY * * The named appointment provid er may or may not be the originator of this progress note, and it is not deemed complete until electronically signed by the appointment provider. Sign off status: Pending * Provider:?Arnulfo Amezquita MD Date:?0 10/30/2023 Generated for Denita vela/Alec/eTanjelsmitting on:?10/21/2024 11:10 AM EDT
--- OUTSIDE RECORDS SUMMARY | 2024-10-21 11:10 | XMS_ITS ---
Author Organization [facility] Address [address] [place] [phone] Care Team Providers Care Cutter Operator Name Role Phone CAROLYN KAUR M.D. Primary Care Provider Arnulfo Draper Jr REASON FOR VISIT pathology Encounters Encounter Location Date Provider Diagnosis [facility] [address] [place] [phone] 11/06/2023 Arnulfo Amezquita Jr Epigastric pain R10.13 Assessments Encounter Date Diagnosis (ICD Code) Assessment Notes Treatment Notes Treatment Clinical Notes Section Notes 11/06/2023 Epigastric pain (ICD-10 - R10.13) Plan Of Treatment Pending Test Test Name Order Date CELIAC PANEL #10 11/06/2023 Progress Notes * AXEL RYAN MARYALBERTOB:01/1986 (38 yo F)Acc No.[id number]:11/06/2023 Patient:?MARY YANES HAL :1985???Age:38 Y???Sex:Female Address:[address] [facility], [facility] [place], [address] Subjective: * Chief Complaints: * ???Pathology * Medical History:? * Surgical History:? * Hospitalization/Major Diagno stic Procedure:? * Medications:? Objective: Assessment: * Assessment: 1.?Epigastric pain - R10.13 (Primary)? Plan: * Treatment: * Procedure Codes:? * true * Date:? Generated for Denita vela/Alec/Madysonitting on:?10/21/2024 11:10 AM EDT
--- OUTSIDE RECORDS SUMMARY | 2024-10-21 11:10 | XMS_ITS | Encounter Summary ---
Author Organization [employer] Address [address] [facility] [address] [place] [address] Care Team Providers Care Pencil Inspector Name Role Phone Adrianne Becerril MD Primary Care Provider [phone] Reason for Visit * Reason Onset Date Comments Med Refill 10/13/2024 Encounter Details Date Type Department Care Team ([facility] st Contact Info) Description 10/13/2024 Refill [facility] [address] [place] [address] Nathan Arrington MD [address] [place] [address] Social History Tobacco Use Types Packs/Day Years [...] documented as of this encounter Care Teams Pencil Inspector Relationship Specialty Start Date End Date Adrianne Becerril MD [address] [place] [address] PCP - General Family Medicine 02/14/24 Angelica Merrill Marine Cargo SpecialistVehicle Fuel Systems Converter 09/12/23 documented as of this encounter
--- OUTSIDE RECORDS SUMMARY | 2024-10-21 11:10 | XMS_ITS | Encounter Summary ---
Author Organization [employer] Address [address] [place] [address] 7[address] [place] [address] Care Team Providers Care Dry Chain Worker Name Role Phone Roxanne Lee Primary Care Provider [phone] Adrianne Becerril MD Primary Care Provider [phone] Encounter Details Date Type Department Care Team ([facility] Contact Info) Description 11/19/2022 Orders Only [facility] MEDICINE [address] [place] [address] Roxanne Lee FNP [address] [place] [address] Social History Tobacco Use Types Packs/Day Years [...] documented as of this encounter Care Teams Dry Chain Worker Relationship Specialty Start Date End Date Roxanne Lee FNP [address] [place] [address] PCP - General Family Medicine 07/27/22 02/13/24 Adrianne Becerril MD [address] [place] [address] PCP - General Family Medicine 02/14/24 Angelica Merrill Sales DriverAlgebra Teacher 09/12/23 documented as of this encounter
--- OUTSIDE RECORDS SUMMARY | 2024-10-21 11:10 | XMS_ITS | Encounter Summary ---
Author Organization [employer] Address [address] [facility] 7 [place] [address] Care Team Providers Care Merchandising Assistant Name Role Phone Adrianne Becerril MD Primary Care Provider [phone] Reason for Visit * Reason Onset Date Comments Med Refill 10/13/2024 Encounter Details Date Type Department Care Team ([facility] st Contact Info) Description 10/13/2024 Refill [facility] [address] [place] [address] Roxanne Lee FNP [address] [place] [address] Social History Tobacco Use Types Packs/Day Years [...] documented as of this encounter Care Teams Merchandising Assistant Relationship Specialty Start Date End Date Adrianne Becerril MD [address] [place] [address] PCP - General Family Medicine 02/14/24 Angelica Merrill Blast SetterMock Up Assembler 09/12/23 documented as of this encounter
--- OUTSIDE RECORDS SUMMARY | 2024-10-21 11:10 | XMS_ITS ---
Author Organization [facility] Address [address] [place] [address] Care Team Providers Care Domestic Helper Name Role Phone CAROLYN KAUR M.D. Primary Care Provider Arnulfo Draper Jr [phone] REASON FOR VISIT epigastric pain Encounters Encounter Location Date Provider Diagnosis [facility] [place] [address] [place] [phone] 10/09/2023 Arnulfo Amezquita Jr Plan Of Treatment No Information Progress Notes * LORETTA YANESOB:01/1986 (38 yo F)Acc No.[id number]:10/09/2023 EGD/MAC Patient:?MARY YANES Provider:?Arnulfo Amezquita MD :1985???Age:37 Y???Sex:Female D ate:10/09/2023 Address:[address] [facility], [place], [place] Pcp:CAROLYN KAUR M.D. Subjective: * Chief Complaints: [...] Amezquita MD Date:?0 10/09/2023 Generated for Denita vela/Alec/Madysonitting on:?10/21/2024 11:10 AM EDT
--- OUTSIDE RECORDS SUMMARY | 2024-10-21 11:10 | XMS_ITS | Clinical Summary ---
Author Organization [employer] Address [address] [place] [address] Care Team Providers Care Postmaster Name Role Phone Adrianne Becerril MD Primary Care Provider [phone] Allergies Active Allergy Reactions Criticality Noted Date Comments Mitchell (Diagnostic) Unknown 06/12/2024 Mitchell Oil 07/05/2022 Penicillin G 09/13/2021 Penicillins 07/05/2022 Flavoring Agent (Non-Screening) 09/2022 Medications * This document contains information received from the source organization and may not represent a complete record from that organization. Vit-Fe Fumarate-FA ( Plus) 27-1 MG tablet One tablet by mouth daily 30 tablet 11 05/20/20 23 Active Additional Information Patient not taking.Reported on 10/14/2024 polyethylene glycol, PEG, 3350 (Glycolax) 17 GM/SCOOP powder TAKE 17 GM MIXED IN 8 OUNCES OF WATER, COFFEE OR TEA ONCE DAILY 07/05/19 24 Active OLANZapine (ZyPREXA) 10 MG tablet Take 2 tablets by mouth at bedtime. Active ziprasidone (Geodon) 20 MG capsule Take 1 capsule by mouth if needed in the morning and at bedtime (agitation or anxiety). 08/12/19 24 Active traZODone (Desyrel) 100 MG tablet Take 2.5 tablets by mouth at bedtime. Active Arnuity Ellipta 100 MCG/ACT inhaler Inhale 1 puff Once per day. 1 each 04/01/20 24 Active Spacer/Aero-Hol ding Chambers (OptiChamber Clara) misc 1 each every 4 (four) hours if needed (asthma). 1 each 04/01/20 24 Active fluticasone (Flonase) 50 MCG/ACT nasal spray Administer 1 spray into each nostril 2 times daily. 11/22/19 24 Active lactulose (Chronulac) 10 GM/15ML solution TAKE 45 ML BY MOUTH THREE TIMES DAILY FOR 30 DAYS 11/22/19 24 Active nicotine (Nicoderm, Step 2) 14 MG/24HR patchIndication s:Smoking APPLY 1 PATCH TOPICALLY TO THE SKIN IN THE MORNING DO NOT SMOKE WHILE USING PATCH 11/22/19 24 Active nicotine polacrilex (Nicorette) 2 MG gumIndications: Smoking CHEW 1 PIECE OF GUM DIRECTED EVERY 2 HOURS NEEDED FOR SMOKING CESSATION 11/22/19 24 Active QUEtiapine (SEROquel) 100 MG tabletIndicatio ns:Severe episode of recurrent major depressive disorder, with psychotic features (CMS/HCC) TAKE 1 TABLET BY MOUTH THREE TIMES DAILY FOR ANXIETY AND VOICES 05/18/20 24 Active hydrOXYzine pamoate (Vistaril) 100 MG capsuleIndicati ons:DAVE (generalized anxiety disorder) TAKE 1 CAPSULE BY MOUTH TWICE DAILY NEEDED FOR ANXIETY 05/28/20 24 Active sertraline (Zoloft) 100 MG tabletIndicatio ns:Severe episode of recurrent major depressive disorder, with psychotic features (CMS/HCC) TAKE 2 AND 1/2 TABLETS BY MOUTH EVERY DAY (FOR MOOD) 05/18/20 24 Active clonazePAM (KlonoPIN) 2 MG tabletIndicatio ns:DAVE (generalized anxiety disorder) Take 1 tablet (2 mg) by mouth if needed each day for anxiety. 6 tablet 06/12/20 24 Active gabapentin (Neurontin) 100 MG capsule Take 1 capsule by mouth 3 times daily. 08/13/19 25 Active prazosin (Minipress) 5 MG capsule Take 1 capsule by mouth at bedtime. Active ondansetron (Zofran) 4 MG tabletIndicatio ns:Nausea and vomiting, unspecified vomiting type Take 2 tablets (8 mg) by mouth every 12 (twelve) hours if needed for nausea or vomiting. 20 tablet 09/18/19 25 Active benztropine (Cogentin) 0.5 MG tabletIndicatio ns:Severe episode of recurrent major depressive disorder, with psychotic features (CMS/HCC) Take 1 tablet (0.5 mg) by mouth 2 times daily. 180 tablet 09/18/19 Active metFORMIN (Glucophage) 500 MG tablet TAKE 1 TABLET BY MOUTH AT BEDTIME 30 tablet 10/10/19 Active Additional Information Patient not taking.Reported on 10/14/2024 albuterol (Ventolin HFA) 108 (90 Base) MCG/ACT inhalerIndicati ons:Mild persistent asthma with acute exacerbation Inhale 2 puffs by mouth every 4 to 6 hours as needed 18 g 10/10/19 Active fluticasone furoate (Arnuity Ellipta) 200 MCG/ACT inhaler Inhale 1 puff Once per day. Rinse mouth with water after use to reduce aftertaste and incidence of candidiasis. Do not swallow. 1 each 10/10/19 25 2025 Active omeprazole (PriLOSEC) [address] capsule Take 1 capsule (20 mg) by mouth before breakfast and before evening meal. Do not crush or chew.TAKE 1 CAPSULE BY MOUTH TWICE DAILY AT 630 am AND 430 pm 180 capsule 10/10/19 Active docusate sodium (Colace) 100 MG capsule Take 1 capsule (100 mg) by mouth 2 times daily. 180 capsule 10/10/19 Active Diclofenac Sodium (Voltaren) 1 % gelIndications: Bilateral hand swelling Apply thin layer twice a day to both hands 50 g 1 10/15/19 Active EPINEPHrine (Epipen) 0.3 MG/0.3ML injection syringe Inject 0.3 mL (0.3 mg) as directed 1 (one) time if needed for anaphylaxis. Inject into upper leg. Call 911 after use. 2 each 10/15/19 Active docusate sodium (Colace) 100 MG capsule Take 1 capsule by mouth 2 times daily. 07/05/19 24 2024 Discontinued(R eorder (will not trigger notification to Pharmacy)) omeprazole (PriLOSEC) [address] capsule TAKE 1 CAPSULE BY MOUTH TWICE DAILY AT 630 am AND 430 pm 07/05/19 24 2024 Discontinued(R eorder (will not trigger notification to Pharmacy)) EPINEPHrine (Epipen) 0.3 MG/0.3ML injection syringe Inject 0.3 mL (0.3 mg) as directed 1 (one) time if needed for anaphylaxis. Inject into upper leg. Call 911 after use. 2 each 1 01/17/20 24 2024 Discontinued(R eorder (will not trigger notification to Pharmacy)) albuterol (Ventolin HFA) 108 (90 Base) MCG/ACT inhalerIndicati ons:Mild persistent asthma with acute exacerbation Inhale 2 puffs by mouth every 4 to 6 hours as needed 18 g 04/01/20 24 2024 Discontinued(R eorder (will not trigger notification to Pharmacy)) Diclofenac Sodium (Voltaren) 1 % gelIndications: Bilateral hand swelling Apply thin layer twice a day to both hands 50 g 1 05/26/20 24 2024 Discontinued(R eorder (will not trigger notification to Pharmacy)) Active Problems Problem Noted Date Diagnosed Date Class 1 obesity due to exces s calories with serious comorbidity and body mass index (BMI) of 33.0 to 33.9 in adult 09/17/2024 Assessment & Plan (09/17/2024 2:42 PM EDT): Extensive counseling about healthy diet and exercise done today, patient today expresses her interest in being started on medication for weight loss, I let her know this medication side effects could exacerbate her underlying abdominal pain nausea and vomiting Epigastric pain 06/12/2024 PTSD (post-traumatic stress disorder) 04/02/2024 Mild persistent asthma without complication 03/17 Severe episode of recurrent major depressive disorder, with psychotic features 04/12/2023 Assessment & Plan (09/17/2024 2:41 PM EDT): It seems that patient is now stable with current medication regimen, I advised not to miss her appointment tomorrow with her psychiatrist and therapist Assessment & Plan (11/28/2023 7:35 PM EDT): -advised continuation of prescribed psych medication -advised follow-up with psych provider and therapist -advised to reach out to crisis with increased depression/ SI -reminded of upcoming appointment with PCP Assessment & Plan (07/24/2023 8:26 AM EST): Continue with current services. Connected to [facility] for therapy and psychiatry Recommendation of crisis [...] follow up with me next week during [facility] visit, use coping skills including those practiced today, contact [facility] or go in person to reengage in services. I provided Kymberly with my information, in case she needs additional support. Panic disorder 04/12/2023 Assessment & Plan (11/28/2023 7:28 PM EDT): -medication refill provided per patient request DAVE (generalized anxiety disorder) 04/12/2023 Nausea and vomiting 07/05/2022 Assessment & Plan (09/17/2024 2:39 PM EDT): I advise patient to avoid NSAIDs, spicy and acid food, I advise to eat at the same time every day, I advise to elevate the head of the bed and take medications as prescribe Cysts of both ovaries 07/05/2022 Encounters Date Type Department Care Team Description 10/21/2024 Orders Only GENERIC EXTERNAL DATA DEPARTMENT Provider, Generic External Data 10/14/2024 Patient Outreach [facility] [address] [place] [id number] Adrianne Becerril MD Care Coordination (C3CM- initial assessment/enrollment ) 10/13/2024 Refill [facility] [address] [place] [address] Roxanne Lee FNP 10/13/2024 Refill [facility] [address] [place] [phone] Nino Del Rosario MD Bilateral hand swelling 10/13/2024 Refill [facility] [address] [place] [phone] Adrianne Becerril MD DAVE (generalized anxiety disorder) 10/13/2024 Refill [facility] [address] [place] [phone] Nathan Arrington MD 10/13/2024 Refill [facility] [address] [place] [phone] Kristie Bañuelos MD Severe episode of recurrent major depressive disorder, with psychotic features ([facility]/HCC) 10/13/2024 Patient Outreach [facility] [address] [place] [id number] Adrianne Becerril MD Care Coordination 10/07/2024 Refill [facility] [address] [place] [phone] Adrianne Becerril MD Mild persistent asthma with acute exacerbation 10/07/2024 Patient Outreach [address] [address] Adrianne Becerril MD Care Coordination 10/02/2024 10:00 AM EDT Office Visit [facility] [address] [place] [phone] Shantanu, Petrona, OD Hypermetropia, bilateral (Primary Dx) 10/02/2024 Patient Outreach [facility] [address] [place] [phone] Adrianne Becerril MD 09/24/2024 Patient Outreach [address] [address] Adrianne Becerril MD Care Coordination (C3 -[facility] Dedra Chan telephone call outreach ) 09/22/2024 Patient Outreach [address] [address] Adrianne Becerril MD 09/17/2024 2:00 PM EDT Office Visit [address] [address] Kristie Bañuelos MD Nausea and vomiting, unspecified vomiting type (Primary Dx); Severe episode of recurrent major depressive disorder, with psychotic features (CMS/HCC); Dietary counseling; Exercise counseling; Class 1 obesity due to excess calories with serious comorbidity and body mass index (BMI) of 33.0 to 33.9 in adult 09/17/2024 Travel 09/17/2024 Patient Outreach [address] [address] Adrianne Becerril MD 09/17/2024 Patient Outreach [address] [address] Adrianne Becerril MD Care Coordination (C3 -[facility] Chan telephone call outreach) 09/15/[address] [address] Brenda Hernandez, PharmD Transportation 09/10/2024 Patient Outreach [address] [address] Adrianne Becerril MD Care Coordination 09/10/2024 Patient Outreach [address] [address] Adrianne Becerril MD 09/08/2024 Patient Outreach [address] [address] Adrianne Becerril MD 09/08/2024 Patient Outreach [address] [address] Adrianne Becerril MD Transition Of Care (Tcm) (HDF- Scheduled (direct )) 09/01/2024 Patient Outreach [address] [address] Adrianne Becerril MD 09/01/2024 Patient Outreach [address] [address] Adrianne Becerril MD 09/01/2024 Patient Outreach [address] [address] Adrianne Becerril MD Care Coordination (C3CM- chart review) 09/01/2024 Patient Outreach [address] [address] Adrianne Becerril MD Care Coordination (CM Program Identification) 08/31/2024 Orders Only GENERIC EXTERNAL DATA DEPARTMENT Provider, Generic External Data 08/28/2024 Population Health Risk Score [facility] (C3) Department [address] [id number] Provider, Population Health Generic 08/21/[address] [address] Adrianne Becerril MD No Show 07/29/2024 3:30 PM EST Office Visit [facility] [address] [place] [address] TarJosefa rodriguez, OD Hypermetropia, bilateral (Primary Dx); Dry eyes, bilateral 07/29/2024 Travel 07/27/[address] [address] Kamila Perez RN 07/24/[address] [address] [facility] [place] Results from Last 3 Months Immunizations Name Administration [...] Passive Smoke Exposure: Past Smokeless Tobacco: Never Tobacco Cessation:Counseling Given: Not [...] Sign Reading Time Taken Comments Blood Pressure 138/77 09/17/2024 1:37 PM EDT Pulse 98 09/17/2024 1:37 PM EDT Temperature 36.1 ??C (97 ??F) 09/17/2024 1:37 PM EDT Respiratory Rate 17 09/17/2024 1:37 PM EDT Oxygen Saturation 98% 09/17/2024 2:16 PM EDT Inhaled Oxygen Concentration - - Weight 103 kg (227 lb) 09/17/2024 1:37 PM EDT Height 175.3 cm (5' 9 ) 09/17/2024 1:37 PM EDT Body Mass Index 33.52 09/17/2024 1:37 PM EDT Plan of Treatment Health Maintenance Due Date Last Done Comments Family Planning (PISQ) 2001 DTaP/Tdap/Td Vaccines (1 - Tdap) 2005 Hepatitis B Vaccines (1 of 3 - 19+ 3-dose series) 2005 Pneumococcal Vaccine: Pediatrics (0 to 5 Years) and At-Risk Patients (6 to 49) Years) (1 of 2 - PCV) 2005 COVID-19 Vaccine (2023-2 5 season) 2024 08/29/2021, 11/11/2020, 10/13/2020 Pap Smear 09/11/2024 09/11/2021 Diabetes: Hemoglobin A1C 06/26/2025 025, 09/05/2021 Alcohol/Substance Use Screening 09/17/2025 09/17/2024 Depression Screening 09/17/2025 09/17/2024, 09/17/2024 Tobacco Screening 09/17/2025 09/17/2024 SDOH Screening 10/07/2025 10/07/2024 Cervical Cancer Screening 09/11/2026 HPV/Cotest 09/11/2026 09/11/2021 Lipid Panel 07/27/2027 07/27/2022, 09/05/2021 Zoster Vaccines (1 of 2) 2036 RSV Patients and Patients Aged 60 years or older (1 - 1-dose 75+ series) 2061 Hepatitis C Screening Completed 09/05/2021 HIV Screening Completed 07/27/2022, 09/05/2021 Influenza Vaccine Completed 09/08/2024, 08/06/2023, 06/25/2023 HIB Vaccines Aged Out No longer eligi [...] W CHEST Routine 10/21/2024 9:07 AM EDT DRUG MONITOR, PANEL 1, SCREEN, URINE Routine 10/21/2024 9:01 AM EDT URINALYSIS, COMPLETE, WITH REFLEX TO CULTURE Routine 10/21/2024 9:01 AM EDT COMPREHENSIVE METABOLIC PANEL Routine 10/21/2024 8:45 AM EDT CBC WITH AUTO DIFFERENTIAL Routine 10/21/2024 8:[address] ABDOMEN PELVIS W CONTRAST Routine 08/31/2024 1:19 PM EDT HCG, QL, URINE Routine 08/31/2024 7:58 AM EDT DRUG MONITOR, PANEL 1, SCREEN, URINE Routine 08/31/2024 7:58 AM EDT ACETAMINOPHEN LEVEL Routine 08/31/2024 7 :58 AM EDT SALICYLATE Routine 08/31/2024 7:58 AM EDT URINALYSIS, COMPLETE, WITH REFLEX TO CULTURE Routine 08/31/2024 7:58 AM EDT CBC WITH AUTO DIFFERENTIAL Routine 08/31/2024 7:58 AM EDT SARS COV2/INFLUENZA A/B AND RSV RNA QL NAAT Routine 08/31/2024 7:58 AM EDT COMPREHENSIVE METABOLIC PANEL Routine 08/31/2024 7:57 AM EDT HEMOGLOBIN A1C Routine 06/26/2024 12:44 PM EST [...] Recently Relevant to Health Maintenance Results * XR Ribs 3 Views Left w/ Chest (10/21/2024 9:07 AM EDT) Anatomical Region Laterality Modality Radiographic Danyell ging 10/21/2024 9:07 AM EDT Narrative 10/21/2024 9:59 AM EDT ? [facility] ?[address] ?[place] [address] ?XRay Report ? Signed ? Patient: Manan Kumar,Kymberly ?MR#: MM ?? [id number] ? : 1985 ?Acct:[id number] ? Age/Sex: 38 / F ?ADM Date: 10/21/24 ? Loc: HO.ED ? Attending Dr: ? Ordering Physician: Allyson Ferrara ?? Date of Service: 10/21/24 ?? Procedure(s): XR ribs LT min 3V w CXR1V ?? Accession Number(s): [id number] ? cc: Allyson Ferrara; Adrianne Becerril ? [...] DD/ 0907 ? TD/TT: 10/21/24 0940 ? Software Program Manager: ? Procedure Note Jamarcus Flanagan - 10/21/[address] [address] XRay Report Signed Patient: Kymberly MelgarMR#: [id number] : 1985Acct:[id number] Age/Sex: 38 / FADM Date: 10/21/24 Loc: HO.ED Attending Dr: Ordering Physician: Allyson Ferrara Date of Service: 10/21/24 Procedure(s): XR ribs LT min 3V w CXR1V Accession Number(s): [id number] cc: Allyson Ferrara; Adrianne Becerril EXAMINATION: XR [...] Andres MD in OV> 10/21/24 0956 DD/ 0907 TD/TT: 10/21/24 0940 Software Program Manager: [facility] External Provider IMG XR PROCEDURES Final Result * (ABNORMAL) Urinalysis, Complete, with Reflex to Culture (10/21/2024 9:01 AM EDT) Only the most recent of2 resultswithin the time period is included. Color Urine RED [facility] Appearance Urine Cloudy [facility] PH 6.5 5.0 - 9.0 [facility] Glucose Urine UA 100(A) Negative mg/dL [facility] Urine Blood Large (3+)(A) Negative [facility] Specific [place] - Urine 1.020 1.005 - 1.025 [facility] Urine Protein 300 (3+)(A) Neg-Trace mg/dL [facility] Urine Ketones 15 Negative mg/dL [facility] Nitrite Urine Positive(A ) Negative [facility] Leukocyte Esterase Urine Small (1+)(A) Negative [facility] RBC Urine >20(A) 0 - 2 /HPF [facility] Urine WBC >50(A) 0 - 5 /HPF [facility] Urine Squamous Epithelial Cell 6-10 0 - 2 /HPF [facility] Urine Bacteria 4+ None Seen [facility] Hyaline Casts, Urine 0-2 0 - 2 /LPF [facility] 10/21/2024 9:01 AM EDT 10/21/2024 9:05 AM EDT Narrative [facility] - 10/21/2024 9:16 AM EDT [id number], [employer] us Generic External Data Provider LAB URINE ORDERAB LES Final Result [facility] [address] [place] [address] [phone] * (ABNORMAL) Drug Monitoring, Panel 1, Screen, Urine (10/21/2024 9:01 AM EDT) Only the most recent of2 resultswithin the time period is included. Opiate Screen Urine Not Detected Not Detect [facility] Comment:Opiate cut-off is 30 0 ng/mL.Positive results are unconfirmed and should not be used fornon-medical purposes. Barbiturates, Urine Not Detected Not Detect [facility] Comment:Barbiturate cut-off is 200 ng/mL.Positive results are unconfirmed and should not be used fornon-medical purposes. Phencyclidine Screen Urine Not Detected Not Detect [facility] Comment:Phencyclidine cut-of f is 25 ng/mL.Positive results are unconfirmed and should not be used fornon-medical purposes. Amphetamine Screen Urine Not Detected Not Detect [facility] Comment:Amphetamine cut-off is 1000 ng/mL.Positive results are unconfirmed and should not be used fornon-medical purposes. Benzodiazepines Screen Urine Not Detected Not Detect [facility] Comment:Benzodiazepine cut-o ff is 200 ng/mL.Positive results are unconfirmed and should not be used fornon-medical purposes. Cocaine Screen Urine Not Detected Not Detect [facility] Comment:Cocaine cut-off is 3 00 ng/mL.Positive results are unconfirmed and should not be used fornon-medical purposes. Cannabinoid Screen Urine POSITIVE(A) Not Detect [facility] Comment:Cannabinoid cut-off is 50 ng/mL.Positive results are unconfirmed and should not be used fornon-medical purposes. Methadone Screen, Urine Not Detected Not Detect ng/mL [facility] Comment:Methadone cut-off is 300 ng/mL.Positive results are unconfirmed and should not be used fornon-medical purposes. FENTANYL URINE Not Detected Not Detect [facility] Comment:Fentanyl cut-off is 1 ng/mL.Positive results are unconfirmed and should not be used fornon-medical purposes. Oxycodone Urine Screen Not Detected Not Detect ng/mL [facility] Comment:Oxycodone cut-off is 100 ng/mL.Positive results are unconfirmed and should not be used fornon-medical purposes. Buprenorphine Screen Not Detected Not Detect ng/mL [facility] Comment:Buprenorphine cut-of f is 5 ng/mL.Positive results are unconfirmed and should not be used fornon-medical purposes. 10/21/2024 9:01 AM EDT 10/21/2024 9:24 AM EDT us Generic External Data Provider LAB URINE ORDERAB LES Final Result [facility] [address] [place] [phone] * (ABNORMAL) CBC auto differential (10/21/2024 8:45 AM EDT) Only the most recent of2 resultswithin the time period is included. White Blood Count 11.9(H) 4.8 - 10.8 X10*3/uL [facility] Red Blood Count 5.30 4.20 - 5.50 X10*6/uL [facility] Hemoglobin 12.1 12.0 - 16.0 g/dl [facility] Hematocrit 36.9(L) 37.0 - 47.0 % [facility] Mean Corpuscular Volume 69.6(L) 80.0 - 98.0 fL [facility] Mean Corpuscular Hemoglobin 22.8(L) 27.0 - 33.0 pg [facility] Mean Corpuscular HGB Conc 32.8 31.0 - 35.0 g/dl [facility] Red Cell Distribution Width 17.1(H) 11.0 - 16.0 % [facility] Platelet Count 479(H) 160 - 400 X10*3/uL [facility] Mean Platelet Volume 9.4 9.4 - 12.3 fL [facility] Neutrophils Percent Auto 76.4(H) 45 - 73 % [facility] Imm Gran Pct Auto 0.4 0.0 - 0.4 % [facility] Lymphocytes Percent Auto 18.5(L) 20 - 40 % [facility] Monocytes Percent Auto 4.0 2 - 11 % [facility] Eosinophils Percent Auto 0.4 0 - 4 % [facility] Basophils Percent Auto 0.3 0 - 2 % [facility] NRBC Pct Auto 0.0 0.0 - 0.2 /100WBC [facility] Neutrophils Absolute Auto 9.1(H) 2.0 - 8.3 x10*3/uL [facility] Imm Gran Abs Auto 0.05(H) 0.00 - 0.03 X10*3/uL [facility] Lymphocytes Absolute Auto 2.2 1.2 - 4.9 X10*3/uL [facility] Monocytes Absolute Auto 0.5 0.1 - 1.2 X10*3/uL [facility] Eosinophils Absolute Auto 0.1 0.0 - 0.4 X10*3/uL [facility] Basophils Absolute Auto 0.0 0.0 - 0.2 X10*3/uL [facility] NRBC Abs Auto 0.000 0.0 - 0.012 X10*3/uL [facility] 10/21/2024 8:45 AM EDT 10/21/2024 8:50 AM EDT us Generic External Data Provider LAB BLOOD ORDERAB LES Final Result [facility] [address] [place] [address] [phone] * (ABNORMAL) Comprehensive Metabolic Panel (10/21/2024 8:45 AM EDT) Only the most recent of2 resultswithin the time period is included. Sodium 140 135 - 145 mmol/L [facility] Potassium 4.4 3.3 - 5.1 mmol/L [facility] Chloride 108 96 - 108 mmol/L [facility] Carbon Dioxide 23 22 - 29 mmol/L [facility] Anion Gap 13 12 - 20 [facility] Urea Nitrogen (BUN) 14 9 - 16 mg/dL [facility] Creatinine, Serum 0.81 0.5 - 1.4 mg/dL [facility] Creatinine Clr Calc Pharmacy 118.7 [facility] Comment:Provided height and weight: 175.26 cm,98.4 kg.eGFR (calculated from the MDRD study equation) and eCrCl(calculated from the Cockcroft-Gault equation) are based ondifferent parameters and may not yield comparable results.If eCrCl result is absurd, please check patient'sheight/weight. Estimated Glomerular Filt Rate >60 [facility] Comment:Chronic Kidney Disea se: Estimated GFR < 60 mL/min/1.57w0Degatg Kidney Disease: Estimated GFR < 15 mL/min/1.73m2 Glucose 100 60 - 115 mg/dL [facility] Calcium 9.3 8.4 - 10.2 mg/dL [facility] Bilirubin, Total 0.6 0.0 - 1.0 mg/dL [facility] Aspartate Amino Transferase 22 5 - 31 U/L [facility] Alanine Aminotransferase 25 0 - 31 U/L [facility] Total Protein 8.7(H) 6.5 - 8.0 g/dL [facility] Albumin Level 4.4 3.5 - 5.0 g/dL [facility] Alkaline Phosphatase 101 39 - 117 U/L [facility] 10/21/2024 8:45 AM EDT 10/21/2024 8:50 AM EDT us Generic External Data Provider LAB BLOOD ORDERAB LES Final Result [facility] [address] [place] [address] [phone] * CT Abdomen Pelvis w/ Contrast (08/31/2024 1:19 PM EDT) Anatomical Region Laterality Modality Body, Pelvis, Abdomen Computed T omography 08/31/2024 1:19 PM EDT Narrative 08/31/2024 1:51 PM EDT ? [facility] ?[address] ?[place] [phone] ? CT Scan Report ? Signed ? Patient: Kymberly Melgar ?MR#: MM ?? [id number] ? : 1985 ?Acct:[id number] ? Age/Sex: 38 / F ?ADM Date: 08/31/24 ? Loc: HO.ED ? Attending Dr: ? Ordering Physician: Catherine Vitale MD ?? Date of Service: 08/31/24 ?? Procedure(s): CT abdomen pelvis w IV con ?? Accession Number(s): [id number] ? cc: Adrianne Becerril; Catherine Vitale MD ? Report Number: ?? [id number]: Total DLP = ??760.00 mGy-cm ?? EXAMINATION: ?? CT ABDOMEN AND PELVIS WITH CONTRAST ? CLINICAL INFORMATION: ?? Abdominal pain. ? COMPARISON: ?? August 23, 2023. ? TECHNIQUE: ?? Multidetector volumetric images were obtained from the superior aspect ?? of the liver through the pubic symphysis following administration 85 mL ?? of Omnipaque 350 intravenous contrast. Sagittal and coronal reformatted ?? images were obtained on the technologist's workstation. ? Oral contrast: No ? This CT examination was performed using dose optimization techniques as ?? appropriate, variously including the following: ?? *Automated exposure control ?? *Adjustment of mA and/or kV according to patient size (this includes ?? techniques or standardized protocols for targeted exams where dose is ?? matched to indication/reason for exam; i.e. extremities or head) ?? *Use of iterative reconstruction technique. ?? DLP: 760 mGy centimeter. ? FINDINGS: ?? LUNG BASES: 1 mm calcified pulmonary nodule, right lung base likely ?? granuloma. ? LIVER, GALLBLADDER, AND BILIARY TREE: Liver measures 15 cm. Decreased ?? enhancement pattern adjacent to the falciform ligament related to focal ?? fatty infiltration. There is a less than 9 mm irregular hypodensity in ?? the periphery of the right hepatic lobe. Portal veins, hepatic veins ?? and intrahepatic portion of the IVC are patent. ? No intrahepatic biliary ductal dilatation. No pericholecystic fluid ?? collection or gallbladder wall thickening. Common bile duct measures 3 ?? mm. ? PANCREAS: No focal lesion. No peripancreatic fluid collection. No main ?? pancreatic ductal dilatation. ? SPLEEN: 10 cm. No focal lesion. ? ADRENAL GLANDS: No nodular lesions. Mild soft tissue fullness, left ?? adrenal gland. ? KIDNEYS AND URETERS: No hydronephrosis. No gross nephrolithiasis. No ?? gross renal mass. Normal enhancement pattern of the renal parenchyma. ? BLADDER: Fluid-filled. ? GASTROINTESTINAL TRACT: Status post appendectomy. ?? Nonspecific gas and fluid-filled mildly prominent distal small bowel ?? loops. No intestinal obstruction pattern. No intestinal wall ?? thickening. Collapsed appearance of the left hemicolon, splenic colonic ?? flexure, and proximal transverse colon. ?? No ascites. ?? No pneumoperitoneum. ?? No pneumatosis intestinalis.. ? ABDOMINAL WALL: There is metallic piercing in the umbilical's. ?? Diastases in the periumbilical region. No gross hernia. ? LYMPH NODES: No lymphadenopathy, mesenteric or retroperitoneal. ? VASCULAR: No aneurysm or dissection. ? PELVIC VISCERA: No gross masses. ? OSSEOUS STRUCTURES: No acute fracture. Probable bony island in the ?? posterior iliac bones, right acetabulum and greater trochanter right ?? femur. Facet joint hypertrophy at L4-5 and L5-S1. Sclerosis and ?? sacroiliac joints.. 1 mm retrolisthesis L4-5. ? CT/CT abdomen pelvis w IV con ?? IMPRESSION: ?? Consider mild enterocolitis in the correct clinical settings. ?? Subcentimeter hypodensity right hepatic lobe. ?? Spondylosis L4-5 and L5-S1. ? Fleischner guidelines were followed. ? Electronically signed by: ??Kali Lowery MD ??08/31/2024 01:48 PM ?? EDT RP ? Dictated By: ?Kali Gallardo MD ? Signed By: ?<Electronically signed by Kali Ramirez MD in OV> ? 08/31/24 1348 ? DD/ 1319 ? TD/TT: 08/31/24 1335 ? Software Program Manager: ? Procedure Note Jamarcus Flanagan - 08/31/[address] [place] [address] [address] Scan Report Signed Patient: Kymberly MelgarMR#: [id number] : 1985Acct:[id number] Age/Sex: 38 / FADM Date: 08/31/24 Loc: HO.ED Attending Dr: Ordering Physician: Catherine Vitale MD Date of Service: 08/31/24 Procedure(s): CT abdomen pelvis w IV con Accession Number(s): [id number] cc: Adrianne Becerril; Catherine Vitale MD Report Number: [id number]: Total DLP = 760.00 mGy-cm EXAMINATION: CT ABDOMEN AND PELVIS WITH CONTRAST CLINICAL INFORMATION: Abdominal pain. COMPARISON: August 23, 2023. TECHNIQUE: Multidetector volumetric images were obtained from the superior aspect of the liver through the pubic symphysis following administration 85 mL of Omnipaque 350 intravenous contrast. Sagittal and coronal reformatted images were obtained on the technologist's workstation. Oral contrast: No This CT examination was performed using dose optimization techniques as appropriate, variously including the following: *Automated exposure control *Adjustment of mA and/or kV according to patient size (this includes techniques or standardized protocols for targeted exams where dose is matched to indication/reason for exam; i.e. extremities or head) *Use of iterative reconstruction technique. DLP: 760 mGy centimeter. FINDINGS: LUNG BASES: 1 mm calcified pulmonary nodule, right lung base likely granuloma. LIVER, GALLBLADDER, AND BILIARY TREE: Liver measures 15 cm. Decreased enhancement pattern adjacent to the falciform ligament related to focal fatty infiltration. There is a less than 9 mm irregular hypodensity in the periphery of the right hepatic lobe. Portal veins, hepatic veins and intrahepatic portion of the IVC are patent. No intrahepatic biliary ductal dilatation. No pericholecystic fluid collection or gallbladder wall thickening. Common bile duct measures 3 mm. PANCREAS: No focal lesion. No peripancreatic fluid collection. No main pancreatic ductal dilatation. SPLEEN: 10 cm. No focal lesion. ADRENAL GLANDS: No nodular lesions. Mild soft tissue fullness, left adrenal gland. KIDNEYS AND URETERS: No hydronephrosis. No gross nephrolithiasis. No gross renal mass. Normal enhancement pattern of the renal parenchyma. BLADDER: Fluid-filled. GASTROINTESTINAL TRACT: Status post appendectomy. Nonspecific gas and fluid-filled mildly prominent distal small bowel loops. No intestinal obstruction pattern. No intestinal wall thickening. Collapsed appearance of the left hemicolon, splenic colonic flexure, and proximal transverse colon. No ascites. No pneumoperitoneum. No pneumatosis intestinalis.. ABDOMINAL WALL: There is metallic piercing in the umbilical's. Diastases in the periumbilical region. No gross hernia. LYMPH NODES: No lymphadenopathy, mesenteric or retroperitoneal. VASCULAR: No aneurysm or dissection. PELVIC VISCERA: No gross masses. OSSEOUS STRUCTURES: No acute fracture. Probable bony island in the posterior iliac bones, right acetabulum and greater trochanter right femur. Facet joint hypertrophy at L4-5 and L5-S1. Sclerosis and sacroiliac joints.. 1 mm retrolisthesis L4-5. CT/CT abdomen pelvis w IV con IMPRESSION: Consider mild enterocolitis in the correct clinical settings. Subcentimeter hypodensity right hepatic lobe. Spondylosis L4-5 and L5-S1. Fleischner guidelines were followed. Electronically signed by: Kali Lowery MD 08/31/2024 01:48 PM EDT Dictated By: Kali Gallardo MD Signed By: <Electronically signed by Kali Ramirez MDin OV> 08/31/24 1348 DD/ 1319 TD/TT: 08/31/24 1335 Software Program Manager: [facility] External Provider IMG CT PROCEDURES Final Result * SARS-CoV-2 RNA, Influenza A/B, and RSV RNA, Ql NAAT (08/31/2024 7:58 AM EDT) Influenza A PCR NEGATIVE Negative [facility] Influenza B PCR NEGATIVE Negative [facility] Resp Syncy Virus RNA Qual PCR NEGATIVE Negative [facility] SARS COV2 PCR NEGATIVE Negative [facility] Comment:All test results mus t be correlated with clinical findings.Negative results do not preclude SARS-CoV2, influenza Avirus, influenza B virus and/or RSV infectionand should not be used as the sole basis for treatment orother patient management decisions. Negative results must becombined with clinical observations, patient history, andepidemiological information.This test has not been evaluated for monitoring treatment ofinfection.This test has been authorized by the FDA under an EmergencyUse Authorization (EUA) for use by authorized laboratories.Testing performed on the [employer] GeneXpert utilizingreal-time RT-PCR.All SARS CoV2 and positive influenza A/B results arereported to [facility]. 08/31/2024 7:58 AM EDT 08/31/2024 8:02 AM EDT Generic External Data Provider LAB MICROBIOLOGY - GENERAL ORDERABLES Final Result [facility] [address] [place] [phone] * HCG, Qualitative, Urine (08/31/2024 7:58 AM EDT) Urine NEGATIVE NEGATIVE [facility] Comment:This test was develo ped to detect early . Falsenegative results may occur after the 5th - 7th week ofpregnancy when using this test method. If clinicallyindicated, consider a serum hCG. 08/31/2024 7:58 AM EDT 08/31/2024 12:17 PM EDT us Generic External Data Provider LAB URINE ORDERAB LES Final Result Performing Organization Address [facility] Co de Phone Number [facility] [address] [place] [phone] * Acetaminophen level (08/31/2024 7:58 AM EDT) Acetaminophen LAB <3 <30 mcg/mL [facility] 08/31/2024 7:58 AM EDT 08/31/2024 8:02 AM EDT Generic External Data Provider LAB BLOOD ORDERAB LES Final Result Performing Organization Address [facility] Co de Phone Number [facility] [address] [place] [phone] * (ABNORMAL) Salicylate (08/31/2024 7:58 AM EDT) Salicylate <5.0(L) 15 - 30 mg/dL [facility] 08/31/2024 7:58 AM EDT 08/31/2024 8:02 AM EDT Generic External Data Provider LAB BLOOD ORDERAB LES Final Result Performing Organization Address [facility] Co de Phone Number [facility] [address] [place] [phone] * Hemoglobin A1c (06/26/2024 12:44 PM EST) Hemoglobin A1c 5.8 <6.0 % [facility] Comment:Hemoglobin A1C Refer ence Range Adults: 4.8 - 6.0 % Non diabetic: < 6.0 % Goal: < 7.0 %Additional Action Suggested: > 8.0 %Note: Hemoglobin A1c results are invalid for patients with abnormal amounts of HbF. Blood transfusions may impact the HbA1c concentration in the patient sample. Estimated Average Glucose 120 mg/dL [facility] Comment:eAG = Estimated ave rage glucose which is %A1C expressed asaverage glucose, using the formula of the R8U-GpqcepsHfmzaux Glucose study (ADAG), Diabetes Care, Vol.31,#8,2007 Blood Venous blood specimen / Unknown 06/26/2024 12:44 PM EST 06/26/2024 4:04 PM EST us Adrianne Becerril MD LAB BLOOD ORDERABLES Final Res ult Performing Organization Address City/[facility]/ZIP Co de Phone Number [facility] [address] [place] [phone] * HIV-1 RNA, Quantitative, Real-Time PCR with Reflex to Genotype (RTI, PI, Integrase) (07/27/2022 12:01 PM EST) Pathologist [facility] HIV 1 RNA, QN PCR NOT DETECTED copies/mL [facility], HIV 1 RNA, QN PCR NOT DETECTED Log copies/mL [facility], Comment: REFERENCE RANGE: NOT DETECTED copies/mL ?NOT DETECTED ??Log copies/mL This test was performed using Real-Time Polymerase Chain Reaction. Reportable range is 20 to 10,000,000 copies/mL (1.30-7.00 Log copies/mL). 07/27/2022 12:0 1 PM EST 07/27/2022 12:01 PM EST Narrative [facility] - 07/31/2022 2:16 AM EST FASTING:YES FASTING: YES us Roxanne SALAZAR LAB BLOOD ORDERABLES Final Resu lt [facility] [address], [place] [address] [facility], [address] [facility] [place] [address] * (ABNORMAL) Lipid Panel, Standard (07/27/2022 12:01 PM EST) Cholesterol, Total 121 <200 mg/dL [facility] HDL Cholesterol 41(L) > OR = 50 mg/dL [facility] Triglycerides 50 <150 mg/dL [facility] LDL Cholesterol 68 mg/dL (calc) [facility] Comment: Reference range: <100 Desirable range <100 mg/dL for primary prevention; ?? <70 mg/dL for patients with CHD or diabetic patients with > or = 2 CHD risk factors. LDL-C is now calculated using the Miryam calculation, which is a validated novel method providing better accuracy than the Friedewald equation in the estimation of LDL-C. Anshu SS et al. YVES. 2013;310(19): 0337-8784 (http://education.[employer]/faq/UQK509) Chol/HDLC Ratio 3.0 <5.0 (calc) [facility] Non-HDL Cholesterol 80 <130 mg/dL (calc) [facility] Comment: For patients with diabetes plus 1 major ASCVD risk factor, treating to a non-HDL-C goal of <100 mg/dL (LDL-C of <70 mg/dL) is considered a therapeutic option. Blood Venous blood specimen / Unknown 07/27/2022 12:01 PM EST 07/27/2022 12:01 PM EST Narrative [facility] - 07/31/2022 2:16 AM EST FASTING:YES FASTING: YES Roxanne Lee BLOCKER [employer]ING LAB BLOOD ORDERABLES Final Resu lt [facility] [address] [facility], [place] [address] [facility] [address] [facility], ([address]) [place] [address] * THINPREP TIS PAP AND HPV mRNA E6/E7 WITH REFLEX TO HPV 16,18/45 (09/11/2021 9:58 AM EDT) Clinical Information: None given [facility] COMMENT SEE COMMENT [facility]OUNDAT[facility] ON [...] has been evaluated with computer assisted technology. [facility] Livestock Yard Attendant: SEE COMMENT [facility] Comment: CMG, CT(ASCP) CT screening location: [address] ??[phone] HPV nRNA E6/E7 Not Detected Not Detected [facility] Comment: Methodology: It Project Coordinator-Mediated Amplification This assay detects E6/E7 viral messenger RNA (mRNA) from 14 high-risk HPV types (16,18,31,33,35,39,45,51,52,56,58,59,66,68). ? The analytical performance characteristics of this assay have been determined by [facility]. The modifications have not been cleared or approved by the FDA. This assay has been validated pursuant to the CLIA regulations and is used for clinical purposes. ?? For additional information, please refer to http://education.[employer].com.Magnetecs/faq/JSQ103q9 (This link if provided for information/ educational purposes only.) Interpretation/Re sult: Negative for intraepithelial lesion or malignancy. [facility] LMP: NONE [facility] Prev. BX: NONE GIVEN [facility] N LAB SYSTEM Prev. PAP: NONE GIVEN [facility]OUND[facility] ON LAB SYSTEM SOURCE: None given [facility] Statement Of Adequacy: SEE COMMENT [facility] Comment: Satisfactory for evaluation. Endocervical/transformation zone component absent. Age and/or menstrual status not provided 09/11/2021 9:58 AM EDT Nataly Herndon CNM LAB PATHOLOGY ORDERABLES Final Result Performing Organization Address [facility] Co de Phone Number [facility] [address] [place] [address], * HEPATITIS C AB W/REFL TO HCV RNA, QN, PCR (09/05/2021 2:03 PM EDT) HEPATITIS C ANTIBODY NON-REACT OBIE NON-REACT OBIE [facility] INDEX 0.02 <1.00 [facility] Comment: ?? HCV antibody was non-reactive. There is no laboratory ?? evidence of HCV infection. ?? In most cases, no further action is required. However, if recent HCV exposure is suspected, a test for HCV RNA (test code 70399) is suggested. ?? For additional information please refer to http://education.Sourcebits/faq/OGK36d3 (This link is being provided for informational/ educational purposes only.) ?? 09/05/2021 2:03 PM EDT us Denise Wharton MD HISTORICAL/NON ORDERABLE LAB S Final Result Performing Organization Address [facility] Co de Phone Number [facility] [address] from Last 3 Months or Most Recently Relevant to Health Maintenance Insurance [employer] C3 HSN PARTIAL Care Teams Postmaster Relationship Specialty Start Date End Date Adrianne Becerril MD [address] [place] [phone] PCP - General Family Medicine 02/14/24 Angelica Merrill Educational Administration TeacherHearing Care Practitioner 09/12/23
[2024-10-21 12:38] VITALS: BP 100/58; PULSE 68; RESP 14; TEMP 36.2; O2SAT 97
[2024-10-21] MEDS: Ondansetron ODT 4 MG TAB.RAPDIS TRANSLINGU (14:09)
[2024-10-21 14:26] VITALS: BP 185/96; PULSE 66; RESP 14; TEMP 36.8; O2SAT 99
[2024-10-21] MEDS: Omeprazole 20 MG CAPSULE.DR PO (16:22)
[2024-10-21] MEDS: QUEtiapine Fumarate 50 MG TABLET PO (16:22)
--- NOTE | 2024-10-21 16:39 | PHA.MEDREC ---
Addendum entered by Shalom Sauer 10/21/24 18:04: reviewed Original Note: Pharmacy Consult ? Medication Reconciliation Pharmacy has completed the medication reconciliation. Spoke with nursing down in [facility] and she had gone over the med rec with the patient who was very pleasant the nurse stated. I spoke with the patient and she was very nice and able to verbally tell me what she was suppose to be taking at this time. Patient had confirmed she is still taking Benztropine, Capsaicin Cream, Clonazepam, Fluticasone Propionate, Nicotine Patches and Gum, Ondansetron and Dermacerin Cream; which originally was on the list of her meds but the nurse had taken them off and I added those back on. The pt stated she has not taken any medications in 1 month due to running out and her Dr not getting back to the pharmacy to refill them; I called and spoke with [facility] and they stated all the pt's medications are still active with them and they had filled a bunch of medications last month but the pt never got them and they got returned to stock 10/09-10/11.
[2024-10-21] MEDS: hydrOXYzine HCL 50 MG TABLET 100 MG PO (17:30)
[2024-10-21 19:55] VITALS: BP 103/64; PULSE 64; RESP 18; TEMP 36.3; O2SAT 97
[2024-10-21 20:19] VITALS: BP 103/64
[2024-10-21] MEDS: Prazosin HCL 5 MG CAPSULE PO (20:19)
[2024-10-21] MEDS: Gabapentin 100 MG CAPSULE PO (20:20)
[2024-10-21] MEDS: traZODone HCL 50 MG TABLET 250 MG PO (20:20)
[2024-10-21] MEDS: Fluticasone Propionate 250 MCG BLST.W.DEV 1 PUFF INHALE (20:20)
[2024-10-21] MEDS: Docusate Sodium 100 MG CAPSULE PO (20:20)
[2024-10-21] MEDS: OLANZapine 10 MG TABLET 30 MG PO (20:20)
[2024-10-22] MEDS: Omeprazole 20 MG CAPSULE.DR PO ×2 (05:26→16:54)
[2024-10-22 05:51] VITALS: BP 115/62; PULSE 65; RESP 16; TEMP 36.5; O2SAT 99
[2024-10-22] MEDS: Fluticasone Propionate 250 MCG BLST.W.DEV 1 PUFF INHALE ×2 (08:15→22:23)
[2024-10-22] MEDS: Gabapentin 100 MG CAPSULE PO ×3 (08:16→20:30)
[2024-10-22] MEDS: polyethylene glycoL 3350 17 GM POWD.PACK PO (08:16)
[2024-10-22] MEDS: Nitrofurantoin Monohyd/M-Cryst 100 MG CAPSULE PO ×2 (08:16→22:23)
[2024-10-22] MEDS: Docusate Sodium 100 MG CAPSULE PO ×2 (08:16→20:30)
[2024-10-22] MEDS: QUEtiapine Fumarate 50 MG TABLET PO ×2 (08:18→17:57)
[2024-10-22] MEDS: hydrOXYzine HCL 50 MG TABLET 100 MG PO ×2 (08:18→20:30)
[2024-10-22] MEDS: Sertraline HCL 100 MG TABLET 200 MG PO (08:23)
[2024-10-22] MEDS: Ibuprofen 600 MG TABLET PO (08:24)
[2024-10-22 12:21] VITALS: BP 113/64; PULSE 73; RESP 18; TEMP 36; O2SAT 98
--- NOTE | 2024-10-22 13:45 | MHC.CLN ---
CONSULT PT REPORTS WT LOSS UPON ADMISSION ASSESSMENT CURRENT WT 216# (10/21/24) PREVIOUS 214.5# (11/11/23) PT WITH 1.5# WT GAIN X 1 YEAR, NO SIGNIFICANT CHANGES NOTED PT IS ALSO OBESE FOR HT WITH BMI 32 AND WT LOSS WOULD BE BENEFICIAL REGULAR DIET WITH ALLERGY TO [facility] UNREMARKABLE PT IS OF VERY LOW NUTRITION RISK AT THIS TIME CONTINUE CURRENT CARE PLAN
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
[2024-10-22] MEDS: clonazePAM 1 MG TABLET 2 MG PO (14:09)
[2024-10-22] MEDS: Acetaminophen 325 MG TABLET 650 MG PO (14:09)
--- NOTE | 2024-10-22 14:35 | PC.ADMIT ---
Addendum entered by Jumana Coats RN 10/22/24 16:35: Kymberly reports she has been off her medications x 1 month due to her prescriber not answering her phone calls or refill requests from the pharmacy. She reports this may have contributed to her having increased depression and anxiety. Original Note: Kymberly was admitted to from [facility] on a CV for treatment of Unspecified Depressive D/O and Unspecified Psychosis. She reports precipitant to admission includes her ex telling her that she has to leave the apartment by 11/14/24. She states she has been having to stay in her room in the apartment while her ex is home because he does not want to see her face. He is currently in [place], which has caused her an increase in anxiety because she is constantly reminded that she has to leave, which led her to not sleep for 4 days and constant panic attacks. She reports the point that made her come to the hospital was when she was in the car, seeing shadows and hearing voices telling her to jump out of the car. She reports that she is hearing multiple voices at the same time and they are commanding in nature. She currently denies SI/HI and reports being able to come to staff if these thoughts occur. She reports feeling safe on the unit. Her mood is sad and her affect is congruent with her mood. Her thought process is clear and linear. Her focus and eye contact is good. She reports only using marijuanna and her tox screen is positive. She reports being on her period currently with cramps. She currently has an UTI and is on Macrobid (Stop date 10/28/24) which she reports is helpful. Skin check completed by DARRYL and Estefani Mccoy RN which was unremarkable. She was placed on 15 minute checks for safety.?
[2024-10-22] MEDS: Ibuprofen 400 MG TABLET PO (16:54)
[2024-10-22 20:00] VITALS: BP 114/60; PULSE 66; RESP 18; TEMP 36.1; O2SAT 96
[2024-10-22] MEDS: traZODone HCL 50 MG TABLET 250 MG PO (20:29)
[2024-10-22] MEDS: Prazosin HCL 5 MG CAPSULE PO (20:29)
[2024-10-22] MEDS: OLANZapine 10 MG TABLET 30 MG PO (20:30)
[2024-10-22] MEDS: Benztropine Mesylate 0.5 MG TABLET PO (20:30)
[2024-10-23] MEDS: QUEtiapine Fumarate 50 MG TABLET PO ×2 (05:45→12:43)
[2024-10-23] MEDS: Omeprazole 20 MG CAPSULE.DR PO ×2 (05:45→15:43)
[2024-10-23 08:00] VITALS: BP 105/55; PULSE 72; RESP 14; TEMP 36.5; O2SAT 94
[2024-10-23 08:22] LABS: Estimated Average Glucose 108 mg/dL; Hemoglobin A1C 112.0165 umol/L; Hemoglobin A1c % 5.4 % (<6.0)
[2024-10-23] MEDS: Sertraline HCL 100 MG TABLET 200 MG PO (08:22)
[2024-10-23] MEDS: Gabapentin 100 MG CAPSULE PO ×3 (08:23→22:04)
[2024-10-23] MEDS: Docusate Sodium 100 MG CAPSULE PO ×2 (08:23→22:04)
[2024-10-23] MEDS: Benztropine Mesylate 0.5 MG TABLET PO ×2 (08:23→22:05)
[2024-10-23] MEDS: Nitrofurantoin Monohyd/M-Cryst 100 MG CAPSULE PO ×2 (08:23→22:05)
[2024-10-23] MEDS: polyethylene glycoL 3350 17 GM POWD.PACK PO (08:24)
[2024-10-23] MEDS: hydrOXYzine HCL 50 MG TABLET 100 MG PO ×2 (08:29→22:05)
[2024-10-23] MEDS: Nicotine 14 MG PATCH.TD24 TRANSDERMA (08:29)
[2024-10-23] MEDS: Ibuprofen 400 MG TABLET PO (08:29)
[2024-10-23 08:30] LABS: Alanine Aminotransferase 24 U/L (0-31); Albumin Level 4.3 g/dL (3.5-5.0); Alkaline Phosphatase 103 U/L (39-117); Anion Gap 12 (12-20); Aspartate Amino Transferase 23 U/L (5-31); Bilirubin Total 0.5 mg/dL (0.0-1.0); Blood Urea Nitrogen 15 mg/dL (9-16); Calcium 9.3 mg/dL (8.4-10.2); Carbon Dioxide 23 mmol/L (22-29); Chloride 107 mmol/L (96-108); Cholesterol 203 mg/dL (<200); Creatinine Clr Calc Pharmacy 114.7; Estimated Glomerular Filt Rate > 60; Glucose Random 96 mg/dL (60-115); HDL Cholesterol 26 mg/dL (>40); LDL Cholesterol Calculated 137 mg/dL (<100); Potassium 3.5 mmol/L (3.3-5.1); Sodium 138 mmol/L (135-145); Total Protein 8.3 g/dL (6.5-8.0); Triglycerides 203 mg/dL (<150)
[2024-10-23] MEDS: Fluticasone Propionate 250 MCG BLST.W.DEV 1 PUFF INHALE ×2 (08:30→22:07)
--- NOTE | 2024-10-23 08:49 | P.PNPSI_ITS ---
Subjective Subjective Date of Service: 10/23/24 Reason For Visit: SI Subjective Notes: Conditional Voluntary Interim History: Active on unit, social with peers. attending groups. Patient continues to report feeling depressed; pt stated, I don't have my kids or anywhere to live . Pt reports she has [employer] paperwork at her apartment and plans to complete application when she is discharged. denies SI/HI/AH. She continues to report visual hallucinations of shadows . Medication Compliance: Yes Side effects from medications: No Attending Groups: Yes Mental Status Exam Mental Status Exam Narrative: Pt is alert and oriented; behavior is cooperative and calm; dressed in casual attire; mood is described as depressed ; eye contact appropriate; Speech is normal rate, volume and not pressured; thought process is organized and goal directed; Thought content is on tx; denies SI/HI/AH; Patient reports visual hallucinations. Diagnostics Vital Signs (24Hr): Vital Signs - 24 hr 10/22/24 12:21 10/22/24 20:00 10/23/24 08:00 Temperature 96.8 F 97 F 97.7 F Pulse Rate 73 66 72 Respiratory Rate 18 18 14 Blood Pressure 113/64 114/60 105/55 L Pulse Oximetry 98 96 94 Oxygen Delivery Method Room Air Room Air Room Air BMI result Body Mass Index 32.0 Labs 10/21/24 08:45 10/23/24 07:50 Labs: Laboratory Results - last 48 hr 10/21/24 10/21/24 10/23/24 08:45 09:01 07:50 WBC 11.9 H RBC 5.30 Hgb 12.1 Hct 36.9 L MCV 69.6 L MCH 22.8 L MCHC 32.8 RDW 17.1 H Plt Count 479 H MPV 9.4 Immature Gran % (Auto) 0.4 Neut % (Auto) 76.4 H Lymph % (Auto) 18.5 L [place] % (Auto) 4.0 Eos % (Auto) 0.4 Baso % (Auto) 0.3 Lymph # (Auto) 2.2 [place] # (Auto) 0.5 Eos # (Auto) 0.1 Baso # (Auto) 0.0 Abs Immat Gran (auto) 0.05 H Absolute Neuts (auto) 9.1 H Absolute Nucleated RBC 0.000 Nucleated RBC % (auto) 0.0 Sodium 140 138 Potassium 4.4 3.5 D Chloride 108 107 Carbon Dioxide 23 23 Anion Gap 13 12 BUN 14 15 Creatinine 0.81 0.83 Estim Creat Clear Calc 118.7 114.7 Estimated GFR > 60 > 60 Random Glucose 100 96 Estimat Average Glucose 108 Hemoglobin A1c % 5.4 Calcium 9.3 9.3 Total Bilirubin 0.6 0.5 AST 22 23 ALT 25 24 Alkaline Phosphatase 101 103 Total Protein 8.7 H 8.3 H Albumin 4.4 4.3 Triglycerides 203 H Cholesterol 203 H LDL Cholesterol, Calc 137 H HDL Cholesterol 26 L Urine Color RED Urine Appearance Cloudy Urine pH 6.5 Ur Specific [place] 1.020 Urine Protein 300 (3+) H Urine Glucose (UA) 100 H Urine Ketones 15 Urine Blood Large (3+) H Urine Nitrite Positive H Ur Leukocyte Esterase Small (1+) H Urine RBC >20 H Urine WBC >50 H Ur Squamous Epith Cells 6-10 Urine Bacteria 4+ Hyaline Casts 0-2 Urine Opiates Screen Not Detected Ur Buprenorphine Scrn Not Detected Ur Oxycodone Screen Not Detected Urine Methadone Screen Not Detected Urine Fentanyl Screen Not Detected Ur Barbiturates Screen Not Detected Ur Phencyclidine Scrn Not Detected Ur Amphetamines Screen Not Detected U Benzodiazepines Scrn Not Detected Urine Cocaine Screen Not Detected U Marijuana (THC) Screen POSITIVE H Imaging Radiology Impressions: ITS Impressions Ribs X-Ray 10/21/24 09:07 IMPRESSION: No acute cardiopulmonary abnormality. No evidence of fracture of the left ribs. Electronically signed by: Tavares Andres MD 10/21/2024 09:56 AM EDT RP Medications Medications Current Medications Acetaminophen (Acetaminophen 325 Mg Tablet) 650 mg PO Q6H PRN PRN Reason: Headache/Pain, Scale 1-10 Last Admin: 10/22/24 14:09 Dose: 650 mg Al Hydroxide/Mg Hydroxide (Magnesium Hydrox/Alum Hydrox 30 Ml Oral.Susp) 30 ml PO Q6H PRN PRN Reason: Heartburn/Nausea Albuterol Sulfate (Albuterol Sulfate 90 Mcg 8 Gm Inhaler) 1 puff INHALE RQ4H PRN PRN Reason: Wheezing Benztropine Mesylate (Benztropine Mesylate 0.5 Mg Tablet) 0.5 mg PO BID SERENA Last Admin: 10/23/24 08:23 Dose: 0.5 mg Clonazepam (Clonazepam 1 Mg Tablet) 2 mg PO DAILY PRN PRN Reason: anxiety Last Admin: 10/22/24 14:09 Dose: 2 mg Docusate Sodium (Docusate Sodium 100 Mg Capsule) 100 mg PO BID [facility] Last Admin: 10/23/24 08:23 Dose: 100 mg Fluticasone Propionate (Fluticasone Propionate 250 Mcg Blst.W.Dev) 1 puff INHALE RBID [facility] Last Admin: 10/23/24 08:30 Dose: 1 puff Gabapentin (Gabapentin 100 Mg Capsule) 100 mg PO TID [facility] Last Admin: 10/23/24 08:23 Dose: 100 mg Hydroxyzine HCl (Hydroxyzine Hcl 50 Mg Tablet) 100 mg PO TID PRN PRN Reason: anxiety Last Admin: 10/23/24 08:29 Dose: 100 mg Ibuprofen (Ibuprofen 400 Mg Tablet) 400 mg PO Q6H PRN PRN Reason: Pain, Moderate(Pain Scale 4-6) Last Admin: 10/23/24 08:29 Dose: 400 mg Magnesium Hydroxide (Milk Of Magnesia 30 Ml Oral.Susp) 30 ml PO DAILY PRN PRN Reason: Constipation Multi-Ingred Cream/Lotion/Oil/Oint (Mineral Oil/Petrolatum,White 106 Gm Tube) 1 appl TOPICAL BID PRN; Protocol PRN Reason: Dry Skin Nicotine (Nicotine 14 Mg Patch.Td24) 14 mg TRANSDERMA DAILY PRN PRN Reason: Nicotine Cravings Last Admin: 10/23/24 08:29 Dose: 14 mg Nicotine Polacrilex (Nicotine Polacrilex 2 Mg Gum) 2 mg BUCCAL Q2H PRN PRN Reason: Nicotine Cravings Nitrofurantoin Macrocrystals (Nitrofurantoin Monohyd/M-Cryst 100 Mg Capsule) 100 mg PO BID [facility] Stop: 10/28/24 09:44 Last Admin: 10/23/24 08:23 Dose: 100 mg Olanzapine (Olanzapine 10 Mg Tablet) 30 mg PO BEDTIME [facility] Last Admin: 10/22/24 20:30 Dose: 30 mg Omeprazole (Omeprazole 20 Mg Capsule.Dr) 20 mg PO BID@0630,1630 [facility] Last Admin: 10/23/24 05:45 Dose: 20 mg Ondansetron HCl (Ondansetron Odt 8 Mg Tab.Rapdis) 8 mg TRANSLINGU Q12H PRN PRN Reason: nausea/vomiting Polyethylene Glycol (Polyethylene Glycol 3350 17 Gm Powd.Pack) 17 gm PO DAILY SERENA Last Admin: 10/23/24 08:24 Dose: 17 gm Prazosin HCl (Prazosin Hcl 5 Mg Capsule) 5 mg PO BEDTIME SERENA; Protocol Last Admin: 10/22/24 20:29 Dose: 5 mg Quetiapine Fumarate (Quetiapine Fumarate 50 Mg Tablet) 50 mg PO TID PRN PRN Reason: panic attack Last Admin: 10/23/24 05:45 Dose: 50 mg Sertraline HCl (Sertraline Hcl 100 Mg Tablet) 200 mg PO DAILY SERENA Last Admin: 10/23/24 08:22 Dose: 200 mg Trazodone HCl (Trazodone Hcl 50 Mg Tablet) 250 mg PO BEDTIME SERENA Last Admin: 10/22/24 20:29 Dose: 250 mg Allergies Allergies Allergy/AdvReac Type Severity Reaction Status Date / Time almond Allergy Severe Anaphylaxis Verified 10/21/24 08:33 Penicillins Allergy Severe Anaphylaxis Verified 10/21/24 08:33 shrimp Allergy Severe Anaphylaxis Verified 10/21/24 08:33 peanuts Allergy Severe Anaphylaxis Uncoded 08/31/24 07:22 Assessment & Plan Assessment & Plan (1) Major depression with psychotic features: Status: Acute Code(s): F32.3 - Major depressive disorder, single episode, severe with psychotic features (2) PTSD (post-traumatic stress disorder): Status: Acute Code(s): F43.10 - Post-traumatic stress disorder, unspecified Plan Patient is a 39-year-old female with history of MDD, PTSD and cocaine use disorder who self presented to [facility] due to worsening depression, anxiety, auditory and visual hallucinations and suicidal ideation with a plan to leap from a building or from a motor vehicle secondary to not having access to her medications for approximately 1 month. Plan: CV 15 minute safety checks Continue home medications Obtain collateral Encourage groups Discharge planning 10/23: Active on unit, social with peers. attending groups. Patient continues to report feeling depressed; pt stated, I don't have my kids or anywhere to live . Pt reports she has [employer] paperwork at her apartment and plans to complete application when she is discharged. denies SI/HI/AH. She continues to report visual hallucinations of shadows . Continue current tx plan. Patient educated on: diagnosis and medication risk/benefits Reason for continued inpatient stay Substantial Risk for: med/psych decompensation Time Spent With Patient Time: Total time managing care of this patient today _20___ minutes.
[2024-10-23] MEDS: Nicotine Polacrilex 2 MG GUM BUCCAL (09:33)
[2024-10-23] MEDS: Acetaminophen 325 MG TABLET 650 MG PO (12:08)
[2024-10-23] MEDS: Ondansetron ODT 8 MG TAB.RAPDIS TRANSLINGU (12:08)
[2024-10-23] MEDS: Milk of Magnesia 30 ML ORAL.SUSP PO (15:43)
[2024-10-23 19:46] VITALS: BP 115/58; PULSE 75; RESP 16; TEMP 36.9; O2SAT 97
[2024-10-23] MEDS: TRAZODONE HCL 250 MG PO (22:04)
[2024-10-23 22:05] VITALS: BP 133/69
[2024-10-23] MEDS: Prazosin HCL 5 MG CAPSULE PO (22:05)
[2024-10-23] MEDS: OLANZapine 10 MG TABLET 30 MG PO (22:05)
[2024-10-23] MEDS: clonazePAM 1 MG TABLET 2 MG PO (22:14)
[2024-10-24] MEDS: Omeprazole 20 MG CAPSULE.DR PO ×2 (06:19→16:51)
[2024-10-24] MEDS: QUEtiapine Fumarate 50 MG TABLET PO (06:58)
[2024-10-24] MEDS: Milk of Magnesia 30 ML ORAL.SUSP PO (06:59)
[2024-10-24 08:00] VITALS: BP 106/57; PULSE 95; RESP 16; TEMP 36.4; O2SAT 98
[2024-10-24] MEDS: polyethylene glycoL 3350 17 GM POWD.PACK PO (08:27)
[2024-10-24] MEDS: Fluticasone Propionate 250 MCG BLST.W.DEV 1 PUFF INHALE ×2 (08:27→21:18)
[2024-10-24] MEDS: Docusate Sodium 100 MG CAPSULE PO ×2 (08:28→21:14)
[2024-10-24] MEDS: Sertraline HCL 100 MG TABLET 200 MG PO (08:28)
[2024-10-24] MEDS: Gabapentin 100 MG CAPSULE PO ×3 (08:28→21:15)
[2024-10-24] MEDS: Benztropine Mesylate 0.5 MG TABLET PO ×2 (08:28→21:15)
[2024-10-24] MEDS: Nitrofurantoin Monohyd/M-Cryst 100 MG CAPSULE PO ×2 (08:28→21:15)
[2024-10-24] MEDS: Acetaminophen 325 MG TABLET 650 MG PO (08:59)
[2024-10-24] MEDS: Ibuprofen 400 MG TABLET PO (08:59)
[2024-10-24] MEDS: hydrOXYzine HCL 50 MG TABLET 100 MG PO ×2 (11:25→21:15)
--- NOTE | 2024-10-24 11:51 | P.PNPSI_ITS ---
Subjective Subjective Date of Service: 10/24/24 Reason For Visit: SI Subjective Notes: Conditional Voluntary Interim History: Patient was seen and discussed in rounds today. Records and plans were reviewed. She continues to have auditory hallucinations. She states that she had discussed increasing the Seroquel with her provider but that was not put in place. I could not find a reference to that but I will increase it for now. She denies any side effects. She does have some constipation for which she is going to use a 10 mg Dulcolax tablet and if that is ineffective we will use a suppository which has been effective for her in the past. No active SI currently but has had plans recently. Mental Status Exam Mental Status Exam Narrative: In today's visit she is alert, oriented and pleasant. Normal speech. Good eye contact. Appropriate affect. No acute signs of psychosis but admits to auditory and visual hallucinations. No active SI/HI. Cognitively is grossly intact. Judgment is intact. She moves all limbs. No gait abnormalities Diagnostics Vital Signs (24Hr): Vital Signs - 24 hr 10/23/24 19:46 10/23/24 22:05 10/24/24 08:00 Temperature 98.4 F 97.6 F Pulse Rate 75 95 Respiratory Rate 16 16 Blood Pressure 115/58 L 133/69 106/57 L Pulse Oximetry 97 98 Oxygen Delivery Method Room Air Room Air BMI result Body Mass Index 32.0 Labs 10/21/24 08:45 10/23/24 07:50 Labs: Laboratory Results - last 48 hr 10/23/24 07:50 Sodium 138 Potassium 3.5 D Chloride 107 Carbon Dioxide 23 Anion Gap 12 BUN 15 Creatinine 0.83 Estim Creat Clear Calc 114.7 Estimated GFR > 60 Random Glucose 96 Estimat Average Glucose 108 Hemoglobin A1c % 5.4 Calcium 9.3 Total Bilirubin 0.5 AST 23 ALT 24 Alkaline Phosphatase 103 Total Protein 8.3 H Albumin 4.3 Triglycerides 203 H Cholesterol 203 H LDL Cholesterol, Calc 137 H HDL Cholesterol 26 L Imaging Radiology Impressions: ITS Impressions Ribs X-Ray 10/21/24 09:07 IMPRESSION: No acute cardiopulmonary abnormality. No evidence of fracture of the left ribs. Electronically signed by: Tavares Andres MD 10/21/2024 09:56 AM EDT Medications Medications Current Medications Acetaminophen (Acetaminophen 325 Mg Tablet) 650 mg PO Q6H PRN PRN Reason: Headache/Pain, Scale 1-10 Last Admin: 10/24/24 08:59 Dose: 650 mg Al Hydroxide/Mg Hydroxide (Magnesium Hydrox/Alum Hydrox 30 Ml Oral.Susp) 30 ml PO Q6H PRN PRN Reason: Heartburn/Nausea Albuterol Sulfate (Albuterol Sulfate 90 Mcg 8 Gm Inhaler) 1 puff INHALE RQ4H PRN PRN Reason: Wheezing Benztropine Mesylate (Benztropine Mesylate 0.5 Mg Tablet) 0.5 mg PO BID [facility] Last Admin: 10/24/24 08:28 Dose: 0.5 mg Clonazepam (Clonazepam 1 Mg Tablet) 2 mg PO DAILY PRN PRN Reason: anxiety Last Admin: 10/23/24 22:14 Dose: 2 mg Docusate Sodium (Docusate Sodium 100 Mg Capsule) 100 mg PO BID [facility] Last Admin: 10/24/24 08:28 Dose: 100 mg Fluticasone Propionate (Fluticasone Propionate 250 Mcg Blst.W.Dev) 1 puff INHALE RBID [facility] Last Admin: 10/24/24 08:27 Dose: 1 puff Gabapentin (Gabapentin 100 Mg Capsule) 100 mg PO TID [facility] Last Admin: 10/24/24 08:28 Dose: 100 mg Hydroxyzine HCl (Hydroxyzine Hcl 50 Mg Tablet) 100 mg PO TID PRN PRN Reason: anxiety Last Admin: 10/24/24 11:25 Dose: 100 mg Ibuprofen (Ibuprofen 400 Mg Tablet) 400 mg PO Q6H PRN PRN Reason: Pain, Moderate(Pain Scale 4-6) Last Admin: 10/24/24 08:59 Dose: 400 mg Magnesium Hydroxide (Milk Of Magnesia 30 Ml Oral.Susp) 30 ml PO DAILY PRN PRN Reason: Constipation Last Admin: 10/24/24 06:59 Dose: 30 ml Multi-Ingred Cream/Lotion/Oil/Oint (Mineral Oil/Petrolatum,White 106 Gm Tube) 1 appl TOPICAL BID PRN; Protocol PRN Reason: Dry Skin Nicotine (Nicotine 14 Mg Patch.Td24) 14 mg TRANSDERMA DAILY PRN PRN Reason: Nicotine Cravings Last Admin: 10/23/24 08:29 Dose: 14 mg Nicotine Polacrilex (Nicotine Polacrilex 2 Mg Gum) 2 mg BUCCAL Q2H PRN PRN Reason: Nicotine Cravings Last Admin: 10/23/24 09:33 Dose: 2 mg Nitrofurantoin Macrocrystals (Nitrofurantoin Monohyd/M-Cryst 100 Mg Capsule) 100 mg PO BID [facility] Stop: 10/28/24 09:44 Last Admin: 10/24/24 08:28 Dose: 100 mg Olanzapine (Olanzapine 10 Mg Tablet) 30 mg PO BEDTIME [facility] Last Admin: 10/23/24 22:05 Dose: 30 mg Omeprazole (Omeprazole 20 Mg Capsule.Dr) 20 mg PO BID@0630,1630 [facility] Last Admin: 10/24/24 06:19 Dose: 20 mg Ondansetron HCl (Ondansetron Odt 8 Mg Tab.Rapdis) 8 mg TRANSLINGU Q12H PRN PRN Reason: nausea/vomiting Last Admin: 10/23/24 12:08 Dose: 8 mg Polyethylene Glycol (Polyethylene Glycol 3350 17 Gm Powd.Pack) 17 gm PO DAILY [facility] Last Admin: 10/24/24 08:27 Dose: 17 gm Prazosin HCl (Prazosin Hcl 5 Mg Capsule) 5 mg PO BEDTIME [facility]; Protocol Last Admin: 10/23/24 22:05 Dose: 5 mg Quetiapine Fumarate (Quetiapine Fumarate 50 Mg Tablet) 50 mg PO TID PRN PRN Reason: panic attack Last Admin: 10/24/24 06:58 Dose: 50 mg Sertraline HCl (Sertraline Hcl 100 Mg Tablet) 200 mg PO DAILY [facility] Last Admin: 10/24/24 08:28 Dose: 200 mg Trazodone HCl 200 mg/ (Trazodone HCl 50 mg) 250 mg PO BEDTIME [facility] Last Admin: 10/23/24 22:04 Dose: 250 mg Allergies Allergies Allergy/AdvReac Type Severity Reaction Status Date / Time almond Allergy Severe Anaphylaxis Verified 10/21/24 08:33 Penicillins Allergy Severe Anaphylaxis Verified 10/21/24 08:33 shrimp Allergy Severe Anaphylaxis Verified 10/21/24 08:33 peanuts Allergy Severe Anaphylaxis Uncoded 08/31/24 07:22 Assessment & Plan Assessment & Plan (1) Major depression with psychotic features: Status: Acute Code(s): F32.3 - Major depressive disorder, single episode, severe with psychotic features (2) PTSD (post-traumatic stress disorder): Status: Acute Code(s): F43.10 - Post-traumatic stress disorder, unspecified Plan Patient is a 39-year-old female with history of MDD, PTSD and cocaine use disorder who self presented to [facility] due to worsening depression, anxiety, auditory and visual hallucinations and suicidal ideation with a plan to leap from a building or from a motor vehicle secondary to not having access to her medications for approximately 1 month. Plan: CV 15 minute safety checks Continue home medications Obtain collateral Encourage groups Discharge planning 10/23: Active on unit, social with peers. attending groups. Patient continues to report feeling depressed; pt stated, I don't have my kids or anywhere to live . Pt reports she has [employer] paperwork at her apartment and plans to complete application when she is discharged. denies SI/HI/AH. She continues to report visual hallucinations of shadows . Continue current tx plan. 10/24: Continue current regimen and plans. Increase Seroquel to 100 mg t.i.d. p.r.n.. Reason for continued inpatient stay Substantial Risk for: med/psych decompensation Time Spent With Patient Time: Total time managing care of this patient today ____ minutes.
[2024-10-24] MEDS: bisacodyL 10 MG SUPP.RECT PR (13:21)
[2024-10-24] MEDS: Mineral OiL enema 133 ML ENEMA PR (15:36)
[2024-10-24] MEDS: Lactulose 20 GM/30 ML SOLUTION 40 GM PO (18:03)
[2024-10-24] MEDS: QUEtiapine Fumarate 100 MG TABLET PO (18:41)
[2024-10-24 20:28] VITALS: BP 124/72; PULSE 80; RESP 16; TEMP 36.8; O2SAT 96
[2024-10-24] MEDS: clonazePAM 1 MG TABLET 2 MG PO (21:14)
[2024-10-24] MEDS: TRAZODONE HCL 250 MG PO (21:15)
[2024-10-24] MEDS: Prazosin HCL 5 MG CAPSULE PO (21:15)
[2024-10-24] MEDS: OLANZapine 10 MG TABLET 30 MG PO (21:15)
[2024-10-25] MEDS: Omeprazole 20 MG CAPSULE.DR PO ×2 (05:32→17:02)
[2024-10-25] MEDS: Lactulose 20 GM/30 ML SOLUTION 40 GM PO (05:35)
[2024-10-25] MEDS: Acetaminophen 325 MG TABLET 650 MG PO ×2 (06:31→21:01)
[2024-10-25] MEDS: QUEtiapine Fumarate 100 MG TABLET PO ×2 (06:31→17:03)
[2024-10-25] MEDS: Ibuprofen 400 MG TABLET PO (06:32)
[2024-10-25 07:51] VITALS: BP 107/56; PULSE 76; RESP 16; TEMP 36.5; O2SAT 96
[2024-10-25] MEDS: Fluticasone Propionate 250 MCG BLST.W.DEV 1 PUFF INHALE ×2 (08:19→21:04)
[2024-10-25] MEDS: polyethylene glycoL 3350 17 GM POWD.PACK PO (08:19)
[2024-10-25] MEDS: Sertraline HCL 100 MG TABLET 200 MG PO (08:20)
[2024-10-25] MEDS: Benztropine Mesylate 0.5 MG TABLET PO ×2 (08:20→21:04)
[2024-10-25] MEDS: Docusate Sodium 100 MG CAPSULE PO ×2 (08:20→21:04)
[2024-10-25] MEDS: Nitrofurantoin Monohyd/M-Cryst 100 MG CAPSULE PO ×2 (08:20→21:13)
[2024-10-25] MEDS: Gabapentin 100 MG CAPSULE PO ×3 (08:21→20:59)
[2024-10-25] MEDS: Nicotine 14 MG PATCH.TD24 TRANSDERMA (08:24)
--- NOTE | 2024-10-25 09:08 | P.PNPSI_ITS ---
Subjective Subjective Date of Service: 10/25/24 Reason For Visit: SI Subjective Notes: Conditional Voluntary Interim History: Patient was seen and discussed in rounds today. Records and plans were reviewed. She had a difficult day yesterday, having a lot of auditory and visual hallucinations, increased anxiety. She was also severely constipated and finally today she was able to have a good bowel movement. She is requesting to increase her Klonopin which I changed to 1 mg b.i.d. p.r.n. from 2 mg daily p.r.n.. She has been using her other PRNs for symptoms of psychosis with moderate effect. No SI. Sleeping disturbed by nightmares. She is already on prazosin. Review of Systems Review of Systems Yes all other systems are reviewed and are negative Mental Status Exam Mental Status Exam Narrative: In today's visit she is alert, oriented and pleasant. Normal speech. Good eye contact. Appropriate affect. No acute signs of psychosis but admits to auditory and visual hallucinations. No active SI/HI. Cognitively is grossly intact. Judgment is intact. She moves all limbs. No gait abnormalities Diagnostics Vital Signs (24Hr): Vital Signs - 24 hr 10/24/24 20:28 10/25/24 07:51 Temperature 98.2 F 97.7 F Pulse Rate 80 76 Respiratory Rate 16 16 Blood Pressure 124/72 107/56 L Pulse Oximetry 96 96 Oxygen Delivery Method Room Air Room Air BMI result Body Mass Index 32.0 Labs 10/21/24 08:45 10/23/24 07:50 Imaging Radiology Impressions: ITS Impressions Ribs X-Ray 10/21/24 09:07 IMPRESSION: No acute cardiopulmonary abnormality. No evidence of fracture of the left ribs. Electronically signed by: Tavares Andres MD 10/21/2024 09:56 AM EDT RP Medications Medications Current Medications Acetaminophen (Acetaminophen 325 Mg Tablet) 650 mg PO Q6H PRN PRN Reason: Headache/Pain, Scale 1-10 Last Admin: 10/25/24 06:31 Dose: 650 mg Al Hydroxide/Mg Hydroxide (Magnesium Hydrox/Alum Hydrox 30 Ml Oral.Susp) 30 ml PO Q6H PRN PRN Reason: Heartburn/Nausea Albuterol Sulfate (Albuterol Sulfate 90 Mcg 8 Gm Inhaler) 1 puff INHALE RQ4H PRN PRN Reason: Wheezing Benztropine Mesylate (Benztropine Mesylate 0.5 Mg Tablet) 0.5 mg PO BID [facility] Last Admin: 10/25/24 08:20 Dose: 0.5 mg Clonazepam (Clonazepam 1 Mg Tablet) 1 mg PO BID PRN PRN Reason: anxiety Docusate Sodium (Docusate Sodium 100 Mg Capsule) 100 mg PO BID [facility] Last Admin: 10/25/24 08:20 Dose: 100 mg Fluticasone Propionate (Fluticasone Propionate 250 Mcg Blst.W.Dev) 1 puff INHALE RBID [facility] Last Admin: 10/25/24 08:19 Dose: 1 puff Gabapentin (Gabapentin 100 Mg Capsule) 100 mg PO TID [facility] Last Admin: 10/25/24 08:21 Dose: 100 mg Hydroxyzine HCl (Hydroxyzine Hcl 50 Mg Tablet) 100 mg PO TID PRN PRN Reason: anxiety Last Admin: 10/24/24 21:15 Dose: 100 mg Ibuprofen (Ibuprofen 400 Mg Tablet) 400 mg PO Q6H PRN PRN Reason: Pain, Moderate(Pain Scale 4-6) Last Admin: 10/25/24 06:32 Dose: 400 mg Lactulose (Lactulose 20 Gm/30 Ml Solution) 40 gm PO DAILY PRN PRN Reason: Constipation Last Admin: 10/25/24 05:35 Dose: 40 gm Magnesium Hydroxide (Milk Of Magnesia 30 Ml Oral.Susp) 30 ml PO DAILY PRN PRN Reason: Constipation Last Admin: 10/24/24 06:59 Dose: 30 ml Multi-Ingred Cream/Lotion/Oil/Oint (Mineral Oil/Petrolatum,White 106 Gm Tube) 1 appl TOPICAL BID PRN; Protocol PRN Reason: Dry Skin Nicotine (Nicotine 14 Mg Patch.Td24) 14 mg TRANSDERMA DAILY PRN PRN Reason: Nicotine Cravings Last Admin: 10/25/24 08:24 Dose: 14 mg Nicotine Polacrilex (Nicotine Polacrilex 2 Mg Gum) 2 mg BUCCAL Q2H PRN PRN Reason: Nicotine Cravings Last Admin: 10/23/24 09:33 Dose: 2 mg Nitrofurantoin Macrocrystals (Nitrofurantoin Monohyd/M-Cryst 100 Mg Capsule) 100 mg PO BID [facility] Stop: 10/28/24 09:44 Last Admin: 10/25/24 08:20 Dose: 100 mg Olanzapine (Olanzapine 10 Mg Tablet) 30 mg PO BEDTIME [facility] Last Admin: 10/24/24 21:15 Dose: 30 mg Omeprazole (Omeprazole 20 Mg Capsule.Dr) 20 mg PO BID@0630,1630 [facility] Last Admin: 10/25/24 05:32 Dose: 20 mg Ondansetron HCl (Ondansetron Odt 8 Mg Tab.Rapdis) 8 mg TRANSLINGU Q12H PRN PRN Reason: nausea/vomiting Last Admin: 10/23/24 12:08 Dose: 8 mg Polyethylene Glycol (Polyethylene Glycol 3350 17 Gm Powd.Pack) 17 gm PO DAILY [facility] Last Admin: 10/25/24 08:19 Dose: 17 gm Prazosin HCl (Prazosin Hcl 5 Mg Capsule) 5 mg PO BEDTIME [facility]; Protocol Last Admin: 10/24/24 21:15 Dose: 5 mg Quetiapine Fumarate (Quetiapine Fumarate 100 Mg Tablet) 100 mg PO TID PRN PRN Reason: panic attack Last Admin: 10/25/24 06:31 Dose: 100 mg Sertraline HCl (Sertraline Hcl 100 Mg Tablet) 200 mg PO DAILY [facility] Last Admin: 10/25/24 08:20 Dose: 200 mg Trazodone HCl 200 mg/ (Trazodone HCl 50 mg) 250 mg PO BEDTIME [facility] Last Admin: 10/24/24 21:15 Dose: 250 mg Allergies Allergies Allergy/AdvReac Type Severity Reaction Status Date / Time almond Allergy Severe Anaphylaxis Verified 10/21/24 08:33 Penicillins Allergy Severe Anaphylaxis Verified 10/21/24 08:33 shrimp Allergy Severe Anaphylaxis Verified 10/21/24 08:33 peanuts Allergy Severe Anaphylaxis Uncoded 08/31/24 07:22 Assessment & Plan Assessment & Plan (1) Major depression with psychotic features: Status: Acute Code(s): F32.3 - Major depressive disorder, single episode, severe with psychotic features (2) PTSD (post-traumatic stress disorder): Status: Acute Code(s): F43.10 - Post-traumatic stress disorder, unspecified Plan Patient is a 39-year-old female with history of MDD, PTSD and cocaine use disorder who self presented to [facility] due to worsening depression, anxiety, auditory and visual hallucinations and suicidal ideation with a plan to leap from a building or from a motor vehicle secondary to not having access to her medications for approximately 1 month. Plan: CV 15 minute safety checks Continue home medications Obtain collateral Encourage groups Discharge planning 10/23: Active on unit, social with peers. attending groups. Patient continues to report feeling depressed; pt stated, I don't have my kids or anywhere to live . Pt reports she has [employer] paperwork at her apartment and plans to complete application when she is discharged. denies SI/HI/AH. She continues to report visual hallucinations of shadows . Continue current tx plan. 10/24: Continue current regimen and plans. Increase Seroquel to 100 mg t.i.d. p.r.n.. 10/25: Continue current regimen and plans. Change Klonopin to 1 mg b.i.d. p.r.n. Guardian/Caregiver educated on: medication risk/benefits Reason for continued inpatient stay Substantial Risk for: med/psych decompensation Time Spent With Patient Time: Total time managing care of this patient today ____ minutes.
[2024-10-25] MEDS: Fluticasone Propionate Nasal 16 GM SPRAY 1 SPRAY NOSTRIL-B (11:04)
[2024-10-25] MEDS: hydrOXYzine HCL 50 MG TABLET 100 MG PO (11:05)
[2024-10-25] MEDS: clonazePAM 1 MG TABLET PO (12:13)
[2024-10-25] MEDS: traMADoL HCL 50 MG TABLET PO ×2 (13:31→21:03)
[2024-10-25 20:00] VITALS: BP 116/83; PULSE 105; RESP 16; TEMP 36.6; O2SAT 97
[2024-10-25] MEDS: TRAZODONE HCL 250 MG PO (20:58)
[2024-10-25 21:00] VITALS: BP 116/83
[2024-10-25] MEDS: Prazosin HCL 5 MG CAPSULE PO (21:00)
[2024-10-25] MEDS: OLANZapine 10 MG TABLET 30 MG PO (21:02)
[2024-10-26] MEDS: hydrOXYzine HCL 50 MG TABLET 100 MG PO ×2 (03:11→12:54)
[2024-10-26] MEDS: QUEtiapine Fumarate 100 MG TABLET PO ×3 (03:11→21:07)
[2024-10-26] MEDS: Omeprazole 20 MG CAPSULE.DR PO ×2 (06:02→16:32)
[2024-10-26] MEDS: clonazePAM 1 MG TABLET PO ×2 (06:36→20:37)
[2024-10-26 07:30] VITALS: BP 118/71; PULSE 93; RESP 14; TEMP 36.7; O2SAT 99
[2024-10-26] MEDS: Sertraline HCL 100 MG TABLET 200 MG PO (08:29)
[2024-10-26] MEDS: Fluticasone Propionate 250 MCG BLST.W.DEV 1 PUFF INHALE ×2 (08:29→21:07)
[2024-10-26] MEDS: Fluticasone Propionate Nasal 16 GM SPRAY 1 SPRAY NOSTRIL-B (08:29)
[2024-10-26] MEDS: Gabapentin 100 MG CAPSULE PO ×3 (08:29→20:38)
[2024-10-26] MEDS: Benztropine Mesylate 0.5 MG TABLET PO ×2 (08:29→20:39)
[2024-10-26] MEDS: Nitrofurantoin Monohyd/M-Cryst 100 MG CAPSULE PO ×2 (08:29→20:39)
[2024-10-26] MEDS: Docusate Sodium 100 MG CAPSULE PO ×2 (08:29→20:39)
[2024-10-26] MEDS: Nicotine 14 MG PATCH.TD24 TRANSDERMA (08:40)
[2024-10-26] MEDS: Nicotine Polacrilex 2 MG GUM BUCCAL (08:41)
[2024-10-26] MEDS: polyethylene glycoL 3350 17 GM POWD.PACK PO (08:44)
[2024-10-26] MEDS: traMADoL HCL 50 MG TABLET PO ×2 (08:49→15:22)
--- NOTE | 2024-10-26 10:17 | P.PNPSI_ITS ---
Subjective Subjective Date of Service: 10/26/24 Reason For Visit: SI Subjective Notes: Conditional Voluntary Interim History: Active on unit, social with peers. attending groups. Patient reports feeling better but continues with some anxiety d/t living situation. Continues to report auditory hallucinations but states they are less. denies SI/HI/VH. per nursing, slept 7 hours. Plan to discharge this week if continues to improve; pt aware. Medication Compliance: Yes Side effects from medications: No Attending Groups: Yes Mental Status Exam Mental Status Exam Narrative: Pt is alert and oriented; behavior is cooperative and calm; dressed in casual attire; mood is described as anxious ; eye contact appropriate; Speech is normal rate, volume nd not pressured; thought process is organized; Thought content is on tx; denies SI/HI/VH. +AH, are less than admission. Diagnostics Vital Signs (24Hr): Vital Signs - 24 hr 10/25/24 20:00 10/25/24 21:00 10/26/24 07:30 Temperature 97.8 F 98.0 F Pulse Rate 105 H 93 Respiratory Rate 16 14 Blood Pressure 116/83 116/83 118/71 Pulse Oximetry 97 99 Oxygen Delivery Method Room Air Room Air BMI result Body Mass Index 32.0 Labs 10/21/24 08:45 10/23/24 07:50 Imaging Radiology Impressions: ITS Impressions Ribs X-Ray 10/21/24 09:07 IMPRESSION: No acute cardiopulmonary abnormality. No evidence of fracture of the left ribs. Electronically signed by: Tavares Andres MD 10/21/2024 09:56 AM EDT RP Medications Medications Current Medications Acetaminophen (Acetaminophen 325 Mg Tablet) 650 mg PO Q6H PRN PRN Reason: Headache/Pain, Scale 1-10 Last Admin: 10/25/24 21:01 Dose: 650 mg Al Hydroxide/Mg Hydroxide (Magnesium Hydrox/Alum Hydrox 30 Ml Oral.Susp) 30 ml PO Q6H PRN PRN Reason: Heartburn/Nausea Albuterol Sulfate (Albuterol Sulfate 90 Mcg 8 Gm Inhaler) 1 puff INHALE RQ4H PRN PRN Reason: Wheezing Benztropine Mesylate (Benztropine Mesylate 0.5 Mg Tablet) 0.5 mg PO BID [facility] Last Admin: 10/26/24 08:29 Dose: 0.5 mg Clonazepam (Clonazepam 1 Mg Tablet) 1 mg PO BID PRN PRN Reason: anxiety Last Admin: 10/26/24 06:36 Dose: 1 mg Docusate Sodium (Docusate Sodium 100 Mg Capsule) 100 mg PO BID [facility] Last Admin: 10/26/24 08:29 Dose: 100 mg Fluticasone Propionate (Fluticasone Propionate 250 Mcg Blst.W.Dev) 1 puff INHALE RBID [facility] Last Admin: 10/26/24 08:29 Dose: 1 puff Fluticasone Propionate (Fluticasone Propionate Nasal 16 Gm Reserve) 1 spray NOSTRIL-B DAILY [facility] Last Admin: 10/26/24 08:29 Dose: 1 spray Gabapentin (Gabapentin 100 Mg Capsule) 100 mg PO TID [facility] Last Admin: 10/26/24 08:29 Dose: 100 mg Hydroxyzine HCl (Hydroxyzine Hcl 50 Mg Tablet) 100 mg PO TID PRN PRN Reason: anxiety Last Admin: 10/26/24 03:11 Dose: 100 mg Lactulose (Lactulose 20 Gm/30 Ml Solution) 40 gm PO DAILY PRN PRN Reason: Constipation Last Admin: 10/25/24 05:35 Dose: 40 gm Magnesium Hydroxide (Milk Of Magnesia 30 Ml Oral.Susp) 30 ml PO DAILY PRN PRN Reason: Constipation Last Admin: 10/24/24 06:59 Dose: 30 ml Multi-Ingred Cream/Lotion/Oil/Oint (Mineral Oil/Petrolatum,White 106 Gm Tube) 1 appl TOPICAL BID PRN; Protocol PRN Reason: Dry Skin Nicotine (Nicotine 14 Mg Patch.Td24) 14 mg TRANSDERMA DAILY PRN PRN Reason: Nicotine Cravings Last Admin: 10/26/24 08:40 Dose: 14 mg Nicotine Polacrilex (Nicotine Polacrilex 2 Mg Gum) 2 mg BUCCAL Q2H PRN PRN Reason: Nicotine Cravings Last Admin: 10/26/24 08:41 Dose: 2 mg Nitrofurantoin Macrocrystals (Nitrofurantoin Monohyd/M-Cryst 100 Mg Capsule) 100 mg PO BID [facility] Stop: 10/28/24 09:44 Last Admin: 10/26/24 08:29 Dose: 100 mg Olanzapine (Olanzapine 10 Mg Tablet) 30 mg PO BEDTIME [facility] Last Admin: 10/25/24 21:02 Dose: 30 mg Omeprazole (Omeprazole 20 Mg Capsule.Dr) 20 mg PO BID@0630,1630 [facility] Last Admin: 10/26/24 06:02 Dose: 20 mg Ondansetron HCl (Ondansetron Odt 8 Mg Tab.Rapdis) 8 mg TRANSLINGU Q12H PRN PRN Reason: nausea/vomiting Last Admin: 10/23/24 12:08 Dose: 8 mg Polyethylene Glycol (Polyethylene Glycol 3350 17 Gm Powd.Pack) 17 gm PO DAILY [facility] Last Admin: 10/26/24 08:44 Dose: 17 gm Prazosin HCl (Prazosin Hcl 5 Mg Capsule) 5 mg PO BEDTIME [facility]; Protocol Last Admin: 10/25/24 21:00 Dose: 5 mg Quetiapine Fumarate (Quetiapine Fumarate 100 Mg Tablet) 100 mg PO TID PRN PRN Reason: panic attack Last Admin: 10/26/24 08:42 Dose: 100 mg Sertraline HCl (Sertraline Hcl 100 Mg Tablet) 200 mg PO DAILY [facility] Last Admin: 10/26/24 08:29 Dose: 200 mg Tramadol HCl (Tramadol Hcl 50 Mg Tablet) 50 mg PO Q6H PRN PRN Reason: Pain, Moderate(Pain Scale 4-6) Last Admin: 10/26/24 08:49 Dose: 50 mg Trazodone HCl 200 mg/ (Trazodone HCl 50 mg) 250 mg PO BEDTIME [facility] Last Admin: 10/25/24 20:58 Dose: 250 mg Allergies Allergies Allergy/AdvReac Type Severity Reaction Status Date / Time almond Allergy Severe Anaphylaxis Verified 10/21/24 08:33 Penicillins Allergy Severe Anaphylaxis Verified 10/21/24 08:33 shrimp Allergy Severe Anaphylaxis Verified 10/21/24 08:33 peanuts Allergy Severe Anaphylaxis Uncoded 08/31/24 07:22 Assessment & Plan Assessment & Plan (1) Major depression with psychotic features: Status: Acute Code(s): F32.3 - Major depressive disorder, single episode, severe with psychotic features (2) PTSD (post-traumatic stress disorder): Status: Acute Code(s): F43.10 - Post-traumatic stress disorder, unspecified Plan Patient is a 39-year-old female with history of MDD, PTSD and cocaine use disorder who self presented to [facility] due to worsening depression, anxiety, auditory and visual hallucinations and suicidal ideation with a plan to leap from a building or from a motor vehicle secondary to not having access to her medications for approximately 1 month. Plan: CV 15 minute safety checks Continue home medications Obtain collateral Encourage groups Discharge planning 10/23: Active on unit, social with peers. attending groups. Patient continues to report feeling depressed; pt stated, I don't have my kids or anywhere to live . Pt reports she has [employer] paperwork at her apartment and plans to complete application when she is discharged. denies SI/HI/AH. She continues to report visual hallucinations of shadows . Continue current tx plan. 10/24: Continue current regimen and plans. Increase Seroquel to 100 mg t.i.d. p.r.n.. 10/25: Continue current regimen and plans. Change Klonopin to 1 mg b.i.d. p.r.n. 10/26: Active on unit, social with peers. attending groups. Patient reports feeling better but continues with some anxiety d/t living situation. Continues to report auditory hallucinations but states they are less. denies SI/HI/VH. per nursing, slept 7 hours. Plan to discharge this week if continues to improve; pt aware. Patient educated on: diagnosis, medication risk/benefits and therapeutic strategies Reason for continued inpatient stay Substantial Risk for: med/psych decompensation Time Spent With Patient Time: Total time managing care of this patient today __20__ minutes.
[2024-10-26 20:00] VITALS: BP 117/61; PULSE 73; RESP 16; TEMP 37.2; O2SAT 98
[2024-10-26] MEDS: Prazosin HCL 5 MG CAPSULE PO (20:36)
[2024-10-26] MEDS: TRAZODONE HCL 250 MG PO (20:38)
[2024-10-26] MEDS: OLANZapine 10 MG TABLET 30 MG PO (20:38)
[2024-10-27] MEDS: Omeprazole 20 MG CAPSULE.DR PO ×2 (06:36→16:21)
[2024-10-27] MEDS: Nicotine 14 MG PATCH.TD24 TRANSDERMA (06:57)
[2024-10-27 07:05] VITALS: BP 118/67; PULSE 104; RESP 16; TEMP 36.3; O2SAT 96
[2024-10-27] MEDS: polyethylene glycoL 3350 17 GM POWD.PACK PO (08:36)
[2024-10-27] MEDS: Benztropine Mesylate 0.5 MG TABLET PO ×2 (08:37→21:10)
[2024-10-27] MEDS: Sertraline HCL 100 MG TABLET 200 MG PO (08:37)
[2024-10-27] MEDS: Gabapentin 100 MG CAPSULE PO ×3 (08:37→21:10)
[2024-10-27] MEDS: Nitrofurantoin Monohyd/M-Cryst 100 MG CAPSULE PO ×2 (08:37→21:17)
[2024-10-27] MEDS: Docusate Sodium 100 MG CAPSULE PO ×2 (08:37→21:10)
[2024-10-27] MEDS: Fluticasone Propionate Nasal 16 GM SPRAY 1 SPRAY NOSTRIL-B (09:09)
[2024-10-27] MEDS: Fluticasone Propionate 250 MCG BLST.W.DEV 1 PUFF INHALE ×2 (09:09→21:17)
[2024-10-27] MEDS: traMADoL HCL 50 MG TABLET PO (09:09)
--- NOTE | 2024-10-27 09:14 | HO.PSYCHPN ---
Subjective Subjective Date of Service: 10/27/24 Reason For Visit: SI Subjective Notes: Conditional Voluntary Interim History: Active on unit, social with peers. attending groups. Patient reports feeling good today; states auditory hallucinations are less. pt stated, I'm trying to not pay attention to the voices . denies SI/HI/VH. Pt reports she plans on returning home and going to [employer] to see if someone can help her fill out application. Pt plans on following up with her outpatient providers. Medication Compliance: Yes Side effects from medications: No Attending Groups: Yes Mental Status Exam Mental Status Exam Narrative: Pt is alert and oriented; behavior is cooperative and calm; dressed in casual attire; mood is described as good ; eye contact appropriate; Speech is normal rate, volume and not pressured; thought process is organized, future oriented; Thought content is on discharge; denies SI/HI/VH. pt reports auditory hallucinations are less . Diagnostics Vital Signs (24Hr): Vital Signs - 24 hr 10/26/24 20:00 10/27/24 07:05 Temperature 98.9 F 97.3 F Pulse Rate 73 104 H Respiratory Rate 16 16 Blood Pressure 117/61 118/67 Pulse Oximetry 98 96 Oxygen Delivery Method Room Air Room Air BMI result Body Mass Index 32.0 Labs 10/21/24 08:45 10/23/24 07:50 Imaging Radiology Impressions: ITS Impressions Ribs X-Ray 10/21/24 09:07 IMPRESSION: No acute cardiopulmonary abnormality. No evidence of fracture of the left ribs. Electronically signed by: Tavares Andres MD 10/21/2024 09:56 AM EDT Medications Medications Current Medications Acetaminophen (Acetaminophen 325 Mg Tablet) 650 mg PO Q6H PRN PRN Reason: Headache/Pain, Scale 1-10 Last Admin: 10/25/24 21:01 Dose: 650 mg Al Hydroxide/Mg Hydroxide (Magnesium Hydrox/Alum Hydrox 30 Ml Oral.Susp) 30 ml PO Q6H PRN PRN Reason: Heartburn/Nausea Albuterol Sulfate (Albuterol Sulfate 90 Mcg 8 Gm Inhaler) 1 puff INHALE RQ4H PRN PRN Reason: Wheezing Benztropine Mesylate (Benztropine Mesylate 0.5 Mg Tablet) 0.5 mg PO BID [facility] Last Admin: 10/27/24 08:37 Dose: 0.5 mg Clonazepam (Clonazepam 1 Mg Tablet) 1 mg PO BID PRN PRN Reason: anxiety Last Admin: 10/26/24 20:37 Dose: 1 mg Docusate Sodium (Docusate Sodium 100 Mg Capsule) 100 mg PO BID [facility] Last Admin: 10/27/24 08:37 Dose: 100 mg Fluticasone Propionate (Fluticasone Propionate 250 Mcg Blst.W.Dev) 1 puff INHALE RBID [facility] Last Admin: 10/27/24 09:09 Dose: 1 puff Fluticasone Propionate (Fluticasone Propionate Nasal 16 Gm [place]) 1 spray NOSTRIL-B DAILY [facility] Last Admin: 10/27/24 09:09 Dose: 1 spray Gabapentin (Gabapentin 100 Mg Capsule) 100 mg PO TID [facility] Last Admin: 10/27/24 08:37 Dose: 100 mg Hydroxyzine HCl (Hydroxyzine Hcl 50 Mg Tablet) 100 mg PO TID PRN PRN Reason: anxiety Last Admin: 10/26/24 12:54 Dose: 100 mg Lactulose (Lactulose 20 Gm/30 Ml Solution) 40 gm PO DAILY PRN PRN Reason: Constipation Last Admin: 10/25/24 05:35 Dose: 40 gm Magnesium Hydroxide (Milk Of Magnesia 30 Ml Oral.Susp) 30 ml PO DAILY PRN PRN Reason: Constipation Last Admin: 10/24/24 06:59 Dose: 30 ml Multi-Ingred Cream/Lotion/Oil/Oint (Mineral Oil/Petrolatum,White 106 Gm Tube) 1 appl TOPICAL BID PRN; Protocol PRN Reason: Dry Skin Nicotine (Nicotine 14 Mg Patch.Td24) 14 mg TRANSDERMA DAILY PRN PRN Reason: Nicotine Cravings Last Admin: 10/27/24 06:57 Dose: 14 mg Nicotine Polacrilex (Nicotine Polacrilex 2 Mg Gum) 2 mg BUCCAL Q2H PRN PRN Reason: Nicotine Cravings Last Admin: 10/26/24 08:41 Dose: 2 mg Nitrofurantoin Macrocrystals (Nitrofurantoin Monohyd/M-Cryst 100 Mg Capsule) 100 mg PO BID [facility] Stop: 10/28/24 09:44 Last Admin: 10/27/24 08:37 Dose: 100 mg Olanzapine (Olanzapine 10 Mg Tablet) 30 mg PO BEDTIME [facility] Last Admin: 10/26/24 20:38 Dose: 30 mg Omeprazole (Omeprazole 20 Mg Capsule.Dr) 20 mg PO BID@0630,1630 [facility] Last Admin: 10/27/24 06:36 Dose: 20 mg Ondansetron HCl (Ondansetron Odt 8 Mg Tab.Rapdis) 8 mg TRANSLINGU Q12H PRN PRN Reason: nausea/vomiting Last Admin: 10/23/24 12:08 Dose: 8 mg Polyethylene Glycol (Polyethylene Glycol 3350 17 Gm Powd.Pack) 17 gm PO DAILY [facility] Last Admin: 10/27/24 08:36 Dose: 17 gm Prazosin HCl (Prazosin Hcl 5 Mg Capsule) 5 mg PO BEDTIME [facility]; Protocol Last Admin: 10/26/24 20:36 Dose: 5 mg Quetiapine Fumarate (Quetiapine Fumarate 100 Mg Tablet) 100 mg PO TID PRN PRN Reason: panic attack Last Admin: 10/26/24 21:07 Dose: 100 mg Sertraline HCl (Sertraline Hcl 100 Mg Tablet) 200 mg PO DAILY [facility] Last Admin: 10/27/24 08:37 Dose: 200 mg Tramadol HCl (Tramadol Hcl 50 Mg Tablet) 50 mg PO Q6H PRN PRN Reason: Pain, Moderate(Pain Scale 4-6) Last Admin: 10/27/24 09:09 Dose: 50 mg Trazodone HCl 200 mg/ (Trazodone HCl 50 mg) 250 mg PO BEDTIME [facility] Last Admin: 10/26/24 20:38 Dose: 250 mg Allergies Allergies Allergy/AdvReac Type Severity Reaction Status Date / Time almond Allergy Severe Anaphylaxis Verified 10/21/24 08:33 Penicillins Allergy Severe Anaphylaxis Verified 10/21/24 08:33 shrimp Allergy Severe Anaphylaxis Verified 10/21/24 08:33 peanuts Allergy Severe Anaphylaxis Uncoded 08/31/24 07:22 Assessment & Plan Assessment & Plan (1) Major depression with psychotic features: Status: Acute Code(s): F32.3 - Major depressive disorder, single episode, severe with psychotic features (2) PTSD (post-traumatic stress disorder): Status: Acute Code(s): F43.10 - Post-traumatic stress disorder, unspecified Plan Patient is a 39-year-old female with history of MDD, PTSD and cocaine use disorder who self presented to [facility] due to worsening depression, anxiety, auditory and visual hallucinations and suicidal ideation with a plan to leap from a building or from a motor vehicle secondary to not having access to her medications for approximately 1 month. Plan: CV 15 minute safety checks Continue home medications Obtain collateral Encourage groups Discharge planning 10/23: Active on unit, social with peers. attending groups. Patient continues to report feeling depressed; pt stated, I don't have my kids or anywhere to live . Pt reports she has [employer] paperwork at her apartment and plans to complete application when she is discharged. denies SI/HI/AH. She continues to report visual hallucinations of shadows . Continue current tx plan. 10/24: Continue current regimen and plans. Increase Seroquel to 100 mg t.i.d. p.r.n.. 10/25: Continue current regimen and plans. Change Klonopin to 1 mg b.i.d. p.r.n. 10/26: Active on unit, social with peers. attending groups. Patient reports feeling better but continues with some anxiety d/t living situation. Continues to report auditory hallucinations but states they are less. denies SI/HI/VH. per nursing, slept 7 hours. Plan to discharge this week if continues to improve; pt aware. 10/27: Active on unit, social with peers. attending groups. Patient reports feeling good today; states auditory hallucinations are less. pt stated, I'm trying to not pay attention to the voices . denies SI/HI/VH. Pt reports she plans on returning home and going to [employer] to see if someone can help her fill out application. Pt plans on following up with her outpatient providers. Patient educated on: diagnosis, medication risk/benefits and therapeutic strategies Reason for continued inpatient stay Substantial Risk for: stable for discharge Time Spent With Patient Time: Total time managing care of this patient today _20___ minutes.
[2024-10-27] MEDS: QUEtiapine Fumarate 100 MG TABLET PO (11:04)
[2024-10-27] MEDS: clonazePAM 1 MG TABLET PO ×2 (12:49→21:17)
[2024-10-27] MEDS: hydrOXYzine HCL 50 MG TABLET 100 MG PO (12:49)
[2024-10-27] MEDS: Lactulose 20 GM/30 ML SOLUTION 40 GM PO (12:49)
[2024-10-27] MEDS: Nicotine Polacrilex 2 MG GUM BUCCAL (16:21)
[2024-10-27 19:25] VITALS: BP 130/63; PULSE 81; RESP 17; TEMP 36.4; O2SAT 93
[2024-10-27] MEDS: TRAZODONE HCL 250 MG PO (21:09)
[2024-10-27] MEDS: OLANZapine 10 MG TABLET 30 MG PO (21:10)
[2024-10-27 21:18] VITALS: BP 120/67
[2024-10-27] MEDS: Prazosin HCL 5 MG CAPSULE PO (21:18)
[2024-10-28] MEDS: Omeprazole 20 MG CAPSULE.DR PO (06:05)
[2024-10-28] MEDS: clonazePAM 1 MG TABLET PO (07:56)
[2024-10-28] MEDS: Naloxone HCl Nasal TAKE HOME 4 MG SPRAY 8 MG NOSTRILALT (07:57)
[2024-10-28] MEDS: Fluticasone Propionate 250 MCG BLST.W.DEV 1 PUFF INHALE (07:57)
[2024-10-28] MEDS: Benztropine Mesylate 0.5 MG TABLET PO (07:59)
[2024-10-28] MEDS: Sertraline HCL 100 MG TABLET 200 MG PO (07:59)
[2024-10-28] MEDS: Docusate Sodium 100 MG CAPSULE PO (07:59)
[2024-10-28] MEDS: Gabapentin 100 MG CAPSULE PO (07:59)
[2024-10-28 08:00] VITALS: BP 116/65; PULSE 81; RESP 17; TEMP 36.9; O2SAT 96
[2024-10-28] MEDS: Nitrofurantoin Monohyd/M-Cryst 100 MG CAPSULE PO (08:00)
[2024-10-28] MEDS: polyethylene glycoL 3350 17 GM POWD.PACK PO (08:00)
[2024-10-28] MEDS: traMADoL HCL 50 MG TABLET PO (08:04)
[2024-10-28] MEDS: Fluticasone Propionate Nasal 16 GM SPRAY 1 SPRAY NOSTRIL-B (08:05)
[2024-10-28] MEDS: Lactulose 20 GM/30 ML SOLUTION 40 GM PO (08:22)
[2024-10-28] MEDS: Nicotine Polacrilex 2 MG GUM BUCCAL (08:36)
[2024-10-28] MEDS: Nicotine 14 MG PATCH.TD24 TRANSDERMA (08:36)
--- NOTE | 2024-10-28 09:15 | HO.PSYCHPN ---
Subjective Subjective Reason For Visit: SI Diagnostics Vital Signs (24Hr): Vital Signs - 24 hr 10/27/24 19:25 10/27/24 21:18 10/28/24 08:00 Temperature 97.6 F 98.5 F Pulse Rate 81 81 Respiratory Rate 17 17 Blood Pressure 130/63 120/67 116/65 Pulse Oximetry 93 96 Oxygen Delivery Method Room Air Room Air BMI result Body Mass Index 32.0 Labs 10/21/24 08:45 10/23/24 07:50 Imaging Radiology Impressions: ITS Impressions Ribs X-Ray 10/21/24 09:07 IMPRESSION: No acute cardiopulmonary abnormality. No evidence of fracture of the left ribs. Electronically signed by: Tavares Andres MD 10/21/2024 09:56 AM EDT RP Medications Medications Current Medications Acetaminophen (Acetaminophen 325 Mg Tablet) 650 mg PO Q6H PRN PRN Reason: Headache/Pain, Scale 1-10 Last Admin: 10/25/24 21:01 Dose: 650 mg Al Hydroxide/Mg Hydroxide (Magnesium Hydrox/Alum Hydrox 30 Ml Oral.Susp) 30 ml PO Q6H PRN PRN Reason: Heartburn/Nausea Albuterol Sulfate (Albuterol Sulfate 90 Mcg 8 Gm Inhaler) 1 puff INHALE RQ4H PRN PRN Reason: Wheezing Benztropine Mesylate (Benztropine Mesylate 0.5 Mg Tablet) 0.5 mg PO BID [facility] Last Admin: 10/28/24 07:59 Dose: 0.5 mg Clonazepam (Clonazepam 1 Mg Tablet) 1 mg PO BID PRN PRN Reason: anxiety Last Admin: 10/28/24 07:56 Dose: 1 mg Docusate Sodium (Docusate Sodium 100 Mg Capsule) 100 mg PO BID [facility] Last Admin: 10/28/24 07:59 Dose: 100 mg Fluticasone Propionate (Fluticasone Propionate 250 Mcg Blst.W.Dev) 1 puff INHALE RBID [facility] Last Admin: 10/28/24 07:57 Dose: 1 puff Fluticasone Propionate (Fluticasone Propionate Nasal 16 Gm [place]) 1 spray NOSTRIL-B DAILY [facility] Last Admin: 10/28/24 08:05 Dose: 1 spray Gabapentin (Gabapentin 100 Mg Capsule) 100 mg PO TID [facility] Last Admin: 10/28/24 07:59 Dose: 100 mg Hydroxyzine HCl (Hydroxyzine Hcl 50 Mg Tablet) 100 mg PO TID PRN PRN Reason: anxiety Last Admin: 10/27/24 12:49 Dose: 100 mg Lactulose (Lactulose 20 Gm/30 Ml Solution) 40 gm PO DAILY PRN PRN Reason: Constipation Last Admin: 10/28/24 08:22 Dose: 40 gm Magnesium Hydroxide (Milk Of Magnesia 30 Ml Oral.Susp) 30 ml PO DAILY PRN PRN Reason: Constipation Last Admin: 10/24/24 06:59 Dose: 30 ml Multi-Ingred Cream/Lotion/Oil/Oint (Mineral Oil/Petrolatum,White 106 Gm Tube) 1 appl TOPICAL BID PRN; Protocol PRN Reason: Dry Skin Nicotine (Nicotine 14 Mg Patch.Td24) 14 mg TRANSDERMA DAILY PRN PRN Reason: Nicotine Cravings Last Admin: 10/28/24 08:36 Dose: 14 mg Nicotine Polacrilex (Nicotine Polacrilex 2 Mg Gum) 2 mg BUCCAL Q2H PRN PRN Reason: Nicotine Cravings Last Admin: 10/28/24 08:36 Dose: 2 mg Nitrofurantoin Macrocrystals (Nitrofurantoin Monohyd/M-Cryst 100 Mg Capsule) 100 mg PO BID [facility] Stop: 10/28/24 09:44 Last Admin: 10/28/24 08:00 Dose: 100 mg Olanzapine (Olanzapine 10 Mg Tablet) 30 mg PO BEDTIME [facility] Last Admin: 10/27/24 21:10 Dose: 30 mg Omeprazole (Omeprazole 20 Mg Capsule.Dr) 20 mg PO BID@0630,1630 [facility] Last Admin: 10/28/24 06:05 Dose: 20 mg Ondansetron HCl (Ondansetron Odt 8 Mg Tab.Rapdis) 8 mg TRANSLINGU Q12H PRN PRN Reason: nausea/vomiting Last Admin: 10/23/24 12:08 Dose: 8 mg Polyethylene Glycol (Polyethylene Glycol 3350 17 Gm Powd.Pack) 17 gm PO DAILY [facility] Last Admin: 10/28/24 08:00 Dose: 17 gm Prazosin HCl (Prazosin Hcl 5 Mg Capsule) 5 mg PO BEDTIME [facility]; Protocol Last Admin: 10/27/24 21:18 Dose: 5 mg Quetiapine Fumarate (Quetiapine Fumarate 100 Mg Tablet) 100 mg PO TID PRN PRN Reason: panic attack Last Admin: 10/27/24 11:04 Dose: 100 mg Sertraline HCl (Sertraline Hcl 100 Mg Tablet) 200 mg PO DAILY [facility] Last Admin: 10/28/24 07:59 Dose: 200 mg Tramadol HCl (Tramadol Hcl 50 Mg Tablet) 50 mg PO Q6H PRN PRN Reason: Pain, Moderate(Pain Scale 4-6) Last Admin: 10/28/24 08:04 Dose: 50 mg Trazodone HCl 200 mg/ (Trazodone HCl 50 mg) 250 mg PO BEDTIME [facility] Last Admin: 10/27/24 21:09 Dose: 250 mg Allergies Allergies Allergy/AdvReac Type Severity Reaction Status Date / Time almond Allergy Severe Anaphylaxis Verified 10/21/24 08:33 Penicillins Allergy Severe Anaphylaxis Verified 10/21/24 08:33 shrimp Allergy Severe Anaphylaxis Verified 10/21/24 08:33 peanuts Allergy Severe Anaphylaxis Uncoded 08/31/24 07:22 Assessment & Plan Assessment & Plan (1) Major depression with psychotic features: Status: Acute Code(s): F32.3 - Major depressive disorder, single episode, severe with psychotic features (2) PTSD (post-traumatic stress disorder): Status: Acute Code(s): F43.10 - Post-traumatic stress disorder, unspecified Plan Patient is a 39-year-old female with history of MDD, PTSD and cocaine use disorder who self presented to [facility] due to worsening depression, anxiety, auditory and visual hallucinations and suicidal ideation with a plan to leap from a building or from a motor vehicle secondary to not having access to her medications for approximately 1 month. Plan: CV 15 minute safety checks Continue home medications Obtain collateral Encourage groups Discharge planning 10/23: Active on unit, social with peers. attending groups. Patient continues to report feeling depressed; pt stated, I don't have my kids or anywhere to live . Pt reports she has [employer] paperwork at her apartment and plans to complete application when she is discharged. denies SI/HI/AH. She continues to report visual hallucinations of shadows . Continue current tx plan. 10/24: Continue current regimen and plans. Increase Seroquel to 100 mg t.i.d. p.r.n.. 10/25: Continue current regimen and plans. Change Klonopin to 1 mg b.i.d. p.r.n. 10/26: Active on unit, social with peers. attending groups. Patient reports feeling better but continues with some anxiety d/t living situation. Continues to report auditory hallucinations but states they are less. denies SI/HI/VH. per nursing, slept 7 hours. Plan to discharge this week if continues to improve; pt aware. 10/27: Active on unit, social with peers. attending groups. Patient reports feeling good today; states auditory hallucinations are less. pt stated, I'm trying to not pay attention to the voices . denies SI/HI/VH. Pt reports she plans on returning home and [facility] to see if someone can help her fill out application. Pt plans on following up with her outpatient providers. Time Spent With Patient Time: Total time managing care of this patient today ____ minutes.
--- NOTE | 2024-10-28 09:18 | P.DS_ITS ---
DS: Providers Provider Date of Service: 10/28/24 Date of admission: 10/22/24 11:56 Date of discharge: 10/28/24 Primary care physician: Adrianne Becerril MD Admitting clinician: Olamide Alex Attending physician on admission: Darwin Vidal Attending physician on discharge: Darwin Vidal Discharging clinician: Olamide Alex DS: Diagnosis Discharge Diagnosis (1) Major depression with psychotic features: Status: Acute (2) PTSD (post-traumatic stress disorder): Status: Acute DS: Medications Discharge Medications Home Medications: Home Medications ?Medication ?Instructions ?Recorded ?Confirmed fluticasone furoate 200 1 inh inhalation DAILY 10/21/24 10/21/24 mcg/actuation blister powder for inhalation (Arnuity Ellipta) fluticasone propionate 50 1 spray intranasal BID PRN Allergy 10/21/24 10/21/24 mcg/actuation nasal Symptoms spray,suspension nicotine (polacrilex) 2 mg gum 2 mg PO Q2H PRN Nicotine Cravings 10/21/24 10/21/24 nicotine 14 mg/24 hr daily 1 patch topical DAILY PRN Nicotine 10/21/24 10/21/24 transdermal patch Cravings ondansetron HCl 4 mg tablet 8 mg PO Q12H PRN nausea/vomiting 10/21/24 10/21/24 Previous Rx's ?Medication ?Instructions ?Recorded albuterol sulfate 90 mcg/actuation 1 puff inhalation RQ4H PRN 09/10/24 aerosol inhaler (Ventolin HFA) Wheezing 30 days #1 inhaler docusate sodium 100 mg capsule 100 mg PO BID 30 days #60 caps 09/10/24 omeprazole 20 mg capsule,delayed 20 mg PO BID@0630,1630 30 days #60 09/10/24 release caps polyethylene glycol 3350 17 gram 17 g PO DAILY 30 days #30 ea 09/10/24 oral powder packet benztropine 0.5 mg tablet 0.5 mg PO BID 14 days #28 tabs 10/27/24 clonazepam 2 mg tablet 2 mg PO DAILY PRN anxiety 14 days 10/27/24 #14 tabs gabapentin 100 mg capsule 100 mg PO TID depressive disorder 10/27/24 14 days #42 caps hydroxyzine pamoate 100 mg capsule 100 mg PO TID PRN anxiety 14 days 05/13/25 #42 caps olanzapine 10 mg tablet 30 mg (3 x 10 mg) PO BEDTIME 14 10/27/24 days #42 tabs prazosin 5 mg capsule 5 mg PO BEDTIME 14 days #14 caps 10/27/24 quetiapine 100 mg tablet 100 mg PO TID PRN panic attack 14 10/27/24 days #42 tabs sertraline 100 mg tablet 200 mg (2 x 100 mg) PO DAILY 14 10/27/24 days #28 tabs trazodone 100 mg tablet 250 mg (2.5 x 100 mg) PO BEDTIME 10/27/24 14 days #35 tabs Mental Status Exam Mental Status Exam Narrative: Pt is alert and oriented; behavior is cooperative and calm; dressed in casual attire; mood is described as good ; eye contact appropriate; Speech is normal rate, volume and not pressured; thought process is organized, future oriented; Thought content is on discharge; denies SI/HI/VH. pt reports auditory hallucinations are less . Data Data Completed and Pending Completed studies during hospitalization [Text1]: 10/21/24 10/23/24 09:01 07:50 Sodium 138 Potassium 3.5 D Chloride 107 Carbon Dioxide 23 Anion Gap 12 BUN 15 Creatinine 0.83 Estim Creat Clear Calc 114.7 Estimated GFR > 60 Random Glucose 96 Estimat Average Glucose 108 Hemoglobin A1c % 5.4 Calcium 9.3 Total Bilirubin 0.5 AST 23 ALT 24 Alkaline Phosphatase 103 Total Protein 8.3 H Albumin 4.3 Triglycerides 203 H Cholesterol 203 H LDL Cholesterol, Calc 137 H HDL Cholesterol 26 L Urine Color RED Urine Appearance Cloudy Urine pH 6.5 Ur Specific [place] 1.020 Urine Protein 300 (3+) H Urine Glucose (UA) 100 H Urine Ketones 15 Urine Blood Large (3+) H Urine Nitrite Positive H Ur Leukocyte Esterase Small (1+) H Urine RBC >20 H Urine WBC >50 H Ur Squamous Epith Cells 6-10 Urine Bacteria 4+ Hyaline Casts 0-2 Urine Opiates Screen Not Detected Ur Buprenorphine Scrn Not Detected Ur Oxycodone Screen Not Detected Urine Methadone Screen Not Detected Urine Fentanyl Screen Not Detected Ur Barbiturates Screen Not Detected Ur Phencyclidine Scrn Not Detected Ur Amphetamines Screen Not Detected U Benzodiazepines Scrn Not Detected Urine Cocaine Screen Not Detected U Marijuana (THC) Screen POSITIVE H 10/21/24 Unknown Urine clean catch - Clean Catch Midstream Urine Culture - Final Imaging Diagnostic Imaging Impressions Ribs X-Ray 10/21/24 09:07 IMPRESSION: No acute cardiopulmonary abnormality. No evidence of fracture of the left ribs. Electronically signed by: Tavares Andres MD 10/21/2024 09:56 AM EDT DS: Summary Hospital Course Hospital Course: Patient is a 39-year-old female with history of MDD, PTSD and cocaine use disorder who self presented to [facility] due to worsening depression, anxiety, auditory and visual hallucinations and suicidal ideation with a plan to leap f rom a building or from a motor vehicle secondary to not having access to her medications for approximately 1 month. Per crisis report, patient reports being off her medication for approximately 1 month. History of multiple inpatient psychiatric hospitalizations. Patient reports being off her medications, not being able to see her children and housing in securities are precipitants for this admission. Patient reports that she made several calls to her psychiatrist's office looking for refills but they were never sent. She reports hearing multiple voices her is throughout the day, causing sleep disruptions at night. Visual hallucinations of shadows moving. She reports poor sleep and appetite. Patient reports suicidal ideation with a plan to leap from a building or moving vehicle. Patient was discharged from on 09/10/2024. During admission assessment, patient presents alert and oriented x3. Calm and cooperative. Patient reports feeling anxious and depressed; patient stated, I ran out of my meds for a month. My doctor never did my refills. Now I am feeling depressed and crying a lot. It's my birthday today. My boyfriend told me to get out by the end of the month . Patient reports having auditory hallucinations telling her that she would be better off . She reports visual hallucinations of shadows . denies HI. Patient reports smoking marijuana daily, denies any other substance use. Utox positive for marijuana. Patient stated, I want to be restarted on my medications and maybe go to a group home . Plan: CV 15 minute safety checks Continue home medications Obtain collateral Encourage groups Discharge planning Active on unit, social with peers. attending groups. Patient continues to report feeling depressed; pt stated, I don't have my kids or anywhere to live . Pt reports she has [employer] paperwork at her apartment and plans to complete application when she is discharged. denies SI/HI/AH. She continues to report visual hallucinations of shadows . Continue current tx plan. Increase Seroquel to 100 mg t.i.d. p.r.n.. Change Klonopin to 1 mg b.i.d. p.r.n. Active on unit, social with peers. attending groups. Patient reports feeling better but continues with some anxiety d/t living situation. Continues to report auditory hallucinations but states they are less. denies SI/HI/VH. per nursing, slept 7 hours. Plan to discharge this week if continues to improve; pt aware. Active on unit, social with peers. attending groups. Patient reports feeling good today; states auditory hallucinations are less. pt stated, I'm trying to not pay attention to the voices . denies SI/HI/VH. Pt reports she plans on returning home and going to [employer] to see if someone can help her fill out application. Pt plans on following up with her outpatient providers. Status at Discharge Cognitive/behavioral status at discharge: Patient has insight and demonstrates good judgment in terms of wanting to pursue treatment. Patient has a safety plan that includes presenting to the closest ER or calling 911 if feeling unsafe. Functional status at discharge: independent ambulation Overall status at discharge: patient is back to baseline Time Spent with Patient Time attestation: Total time managing care of this patient today _20___ minutes. Time spent: Less than 30 minutes Discharge Plan Discharge Anticipated Discharge Date/Time: 10/28/24 11:00 Patient Disposition: Home, Self-Care Discharge Diagnosis: MDD with psychotic features, PTSD Referrals: Cande Chilel (Psychiatry) [Other] - 11/12/24 1:30 pm (TELEHEALTH APPOINTMENT) Reno Rodriguez (Therapy) [Other] - 10/30/24 1:00 pm (TELEHEALTH APPOINTMENT) Adrianne Becerril MD [Primary Care Provider] - 11/03/24 10:15 am (10-28-24 Your follow up appt has been scheduled with Dr. Marquez on 11-03-24 @ 10:15am) Discharge Medications: New quetiapine 100 mg Tablet 100 mg PO TID PRN (Reason: panic attack) 14 Days Qty: 42 0RF Continued Arnuity Ellipta 200 mcg/actuation blister with device 1 inh INHALATION DAILY nicotine 14 mg/24 hr patch 24 hour 1 patch topical DAILY PRN (Reason: Nicotine Cravings) nicotine (polacrilex) 2 mg gum 2 mg PO Q2H PRN (Reason: Nicotine Cravings) ondansetron HCl 4 mg tablet 8 mg PO Q12H PRN (Reason: nausea/vomiting) fluticasone propionate 50 mcg/actuation spray,suspension 1 spray intranasal BID PRN (Reason: Allergy Symptoms) hydroxyzine pamoate 100 mg capsule 100 mg PO TID PRN (Reason: anxiety) 14 Days Qty: 42 0RF benztropine 0.5 mg tablet 0.5 mg PO BID 14 Days Qty: 28 0RF sertraline 100 mg tablet 200 mg PO DAILY 14 Days Qty: 28 0RF olanzapine 10 mg Tablet 30 mg PO BEDTIME 14 Days Qty: 42 0RF prazosin 5 mg Capsule 5 mg PO BEDTIME 14 Days Qty: 14 0RF Protocol: Hold for SBP< HOLD for SBP < : 90 trazodone 100 mg Tablet 250 mg PO BEDTIME 14 Days Qty: 35 0RF clonazepam 2 mg tablet 2 mg PO DAILY PRN (Reason: anxiety) 14 Days Qty: 14 0RF gabapentin 100 mg capsule 100 mg PO TID 14 Days Qty: 42 0RF docusate sodium 100 mg Capsule 100 mg PO BID 30 Days Qty: 60 0RF albuterol sulfate [Ventolin HFA] 90 mcg/actuation Hfa Aerosol Inhaler 1 puff inhalation RQ4H PRN (Reason: Wheezing) 30 Days Qty: 1 0RF polyethylene glycol 3350 17 gram Powder In Packet 17 g PO DAILY 30 Days Qty: 30 0RF omeprazole 20 mg Capsule,Delayed Release(Dr/Ec) 20 mg PO BID@0630,1630 30 Days Qty: 60 0RF Discontinued Midol Complete 500-60-15 mg Tablet 2 tab PO Q4H PRN (Reason: Period Cramps) Rx Instructions: DNExceed 4 doses/24h capsaicin 0.025 % cream 1 appl topical QID PRN (Reason: pain) Dermacerin Cream 1 appl TOPICAL BID PRN (Reason: Dry Skin) quetiapine 50 mg tablet 50 mg PO TID PRN (Reason: panic attack) 30 Days Qty: 90 0RF Discharge Orders: Discharge Order (Routine); Ordered 10/28/24 Ordered By: Olamide Alex Diet: Regular diet Activity on Discharge: As tolerated Stand Alone Forms: Patient Portal Discharge page, Community Support Print Language: Burundian Care Plan Goals: Maintain mood and safe behaviors Take medications as prescribed Continue to pursue sobriety Practice coping skills Continue with outpatient providers and reach out to them as needed Health Concerns: Mood stability and behaviors Sobriety Plan of Treatment: Follow up with your PCP, psychiatric provider and other outpatient providers regarding above concerns Take medications as prescribed Assessment: Patient has insight and demonstrates good judgment in terms of wanting to pursue treatment. Patient has a safety plan that includes presenting to the closest ER or calling 911 if feeling unsafe. Discharge Date/Time: 10/28/24 10:30
== END 2024-10-28 10:30 | disposition home or self-care (01) | DRG 751 ==
LOC: HO.ED 15:04 → HO.PADLT16 10-22 11:57
PROVIDERS: Admitting Provider Registered Nurse; Emergency Provider Emergency Medicine; PCP General Practice; Responsible Provider Registered Nurse; Visit Provider Psychiatry & Neurology Psychiatry
DX: F32.3 Major depressive disorder, single episode, severe with psychotic features (principal); R45.851 Suicidal ideations; F43.10 Post-traumatic stress disorder, unspecified; F17.210 Nicotine dependence, cigarettes, uncomplicated; Z71.6 Tobacco abuse counseling; Z79.899 Other long term (current) drug therapy
CPT/HCPCS: 36415; 71101; 80053; 80061; 80307; 81001; 83036; 85025; 87086; 93005; 99285; S9485

== ENCOUNTER → 2024-10-21 08:35 | Outpatient (BNV) | payer MEDICAID, SELFPAY | PROVIDERS: Emergency Provider Emergency Medicine; PCP General Practice; Visit Provider Internal Medicine | DX: R94.31 Abnormal electrocardiogram [ECG] [EKG] (principal); Z13.6 Encounter for screening for cardiovascular disorders | CPT/HCPCS: 93010 ==

== ENCOUNTER → 2024-10-21 09:07 | Outpatient (BNV) | payer MEDICAID, SELFPAY | PROVIDERS: PCP General Practice; Visit Provider Radiology Diagnostic Radiology | DX: R07.81 Pleurodynia (principal) | CPT/HCPCS: 71101 ==

== ENCOUNTER → 2024-10-22 11:56 | Outpatient (BNV) | payer OTHER, SELFPAY | PROVIDERS: Admitting Provider Registered Nurse; Emergency Provider Emergency Medicine; PCP General Practice; Responsible Provider Registered Nurse; Visit Provider Psychiatry & Neurology Psychiatry | DX: F32.3 Major depressive disorder, single episode, severe with psychotic features (principal); F43.11 Post-traumatic stress disorder, acute | CPT/HCPCS: 99231; 99232; 99233 ==

== ENCOUNTER 2024-11-16 05:33 | Emergency (ER) | payer MEDICAID, SELFPAY ==
--- NOTE | ~2024-11-16 | CT_ITS ---
EXAMINATION: CT ABDOMEN PELVIS WITHOUT IV CONTRAST HISTORY: epigastric pain COMPARISON: Comparison is made with the prior examination dated 08/31/2024. TECHNIQUE: CT scan of the abdomen and pelvis was performed without contrast using standard departmental protocol. Coronal and sagittal reformatted images were generated and reviewed. Oral contrast material was not administered at the request of the referring physician. This CT exam was performed with one or more of the following dose reduction techniques: automated exposure control, adjustment of the mA and/or kV according to patient size, use of iterative reconstruction technique. DLP: 687 mGy-cm FINDINGS: LOWER CHEST: The visualized lung bases are clear. There is no pleural effusion. CARDIOVASCULATURE: The heart is normal in size. There is no pericardial effusion. LIVER: The liver is normal in size and contour, but demonstrates decreased attenuation, consistent with steatosis. The liver has an unremarkable unenhanced appearance. GALLBLADDER / BILE DUCTS: The gallbladder is unremarkable. There is no intra or extrahepatic biliary ductal dilatation. SPLEEN: The spleen is normal in size and has an unremarkable unenhanced appearance. PANCREAS: The pancreas has an unremarkable unenhanced appearance. ADRENAL GLANDS: Unremarkable. KIDNEYS/RETROPERITONEUM: No renal calculi are identified. There is no hydronephrosis. LYMPH NODES: No retroperitoneal lymphadenopathy is identified in the abdomen or pelvis. VASCULATURE: The abdominal aorta is normal in caliber. MESENTERY/PERITONEUM: No free fluid. No masses. There is no free intraperitoneal gas. STOMACH: The stomach is unremarkable. SMALL BOWEL: The small bowel is normal in caliber. COLON: The colon is unremarkable. APPENDIX: The appendix is surgically absent. URINARY BLADDER/PELVIC ORGANS: The urinary bladder is collapsed, limiting evaluation. The uterus and ovaries have an unremarkable unenhanced appearance. BONES / SOFT TISSUES: No suspicious bony or soft tissue abnormalities. CT/CT abdomen pelvis wo IV con IMPRESSION: Hepatic steatosis. Otherwise unremarkable unenhanced CT of the abdomen and pelvis. Electronically signed by: Tavares Andres MD 11/16/2024 11:57 AM EDT
[2024-11-16 05:35] VITALS: BP 148/85; PULSE 97; RESP 24; TEMP 36.6; O2SAT 98; BMI 34.0
--- NOTE | 2024-11-16 05:59 | ED_ITS ---
HPI - Psych General Chief Complaint: Psychiatric Symptoms Stated Complaint: Crisis Time Seen by Provider: 11/16/24 05:59 Source: patient Mode of arrival: EMS Limitations: no limitations History of Present Illness ED Provider: HPI Narrative: Patient's history of bipolar disorder, anxiety, PTSD recently kicked out from her place by her BF as she was using cocaine 3 months ago, felt suicidal as she does not have any family in this area wanted to jump off the 4th floor of the building has not taken her medication for last 4 days Related Data Previous Rx's ?Medication ?Instructions ?Recorded benztropine 0.5 mg tablet 0.5 mg PO BID 14 days #28 tabs 10/27/24 clonazepam 2 mg tablet 2 mg PO DAILY PRN anxiety 14 days 10/27/24 #14 tabs gabapentin 100 mg capsule 100 mg PO TID depressive disorder 10/27/24 14 days #42 caps hydroxyzine pamoate 100 mg capsule 100 mg PO TID PRN anxiety 14 days 10/27/24 #42 caps olanzapine 10 mg tablet 30 mg (3 x 10 mg) PO BEDTIME 14 10/27/24 days #42 tabs prazosin 5 mg capsule 5 mg PO BEDTIME 14 days #14 caps 10/27/24 quetiapine 100 mg tablet 100 mg PO TID PRN panic attack 14 10/27/24 days #42 tabs sertraline 100 mg tablet 200 mg (2 x 100 mg) PO DAILY 14 10/27/24 days #28 tabs trazodone 100 mg tablet 250 mg (2.5 x 100 mg) PO BEDTIME 10/27/24 14 days #35 tabs Allergies Allergy/AdvReac Type Severity Reaction Status Date / Time almond Allergy Severe Anaphylaxis Verified 11/16/24 05:36 Penicillins Allergy Severe Anaphylaxis Verified 11/16/24 05:36 shrimp Allergy Severe Anaphylaxis Verified 11/16/24 05:36 peanuts Allergy Severe Anaphylaxis Uncoded 11/16/24 05:36 Review of Systems 2 Review of Systems: Yes all other systems are reviewed and are negative PMFSH Past Medical History Medical History Auditory hallucination UTI (urinary tract infection) Suicidal ideation Urinary tract infection Suicidal ideation Substance abuse Bipolar disorder Anxiety Depression Anxiety and depression Nausea & vomiting History of irregular heartbeat Acute posttraumatic stress disorder UTI (urinary tract infection) Asthma exacerbation Surgical History History of surgery Hx of section Social History Social History Household Members: Other Household Members Other:: Ex Housing: Other Housing Other:: Patient must be out of house by 11/14/24 Do you presently have visiting nurse or other home services: No Alcohol intake: former Patient Tobacco Use Status: Current everyday Tobacco user Tobacco use type: Cigarette Cigarette Packs Per Day: 0.25 Cigarettes Per Day: 5.0 Years Smoked: 23 e-Cigarette/Vaping Use: Currently Using Second Hand Smoke Exposure: Yes Substance Use Type: Marijuana service: No Sexual orientation: Straight/Heterosexual Physical Exam 2 Vital Signs: Vital Signs: Last Vital Signs Temp 98.8 F 11/17/24 12:56 Pulse 95 11/17/24 12:56 Resp 16 11/17/24 12:56 BP 120/72 11/17/24 12:56 Pulse Ox 97 11/17/24 12:56 O2 Del Method Room Air 11/17/24 12:56 BMI result Body Mass Index 34.0 Appearance: Alert. Oriented X3. No acute distress. Anxious Eyes: PERRLA, No Nystagmus ENT: Pharynx normal. Oral Mucosa moist Neck: Normal inspection. Neck supple. CVS: Normal heart rate and rhythm. Pulses normal. Respiratory: No respiratory distress. Equal air entry bilateral, no wheezing/rales/rhonchi Abdomen: Soft and nontender. Bowel sounds are present, no mass palpable, no CVA tenderness Skin: Skin warm and dry. Normal skin color. Normal skin turgor. Extremities: No lower extremity edema. No calf tenderness psych; feel depressed and suicidal with no plan at this time no hallucination or delusion Neuro: Oriented X 3. No motor deficit. No sensory deficit.No cerebellar signs , cranial nerves II-XII intact Course Reevaluation(s) Reevaluation #1: Time: 06:24 Date: 11/17/24 Provider: Brian Duarte MD Patient in physician observation for psychiatric evaluation.? patient has been in the emergency department for 24 hours. No acute events reported overnight. No current complaints. VS.? patient was evaluated by the care team and has been accepted at [facility] respite this morning at 09:45 hours. Will continue to monitor. Reevaluation #2: Time: 10:22 Date: 11/17/24 Provider: Brian Duarte MD Physician observation ended at 10:22 hours. Patient has been cleared for discharge by the CARE team and has been accepted at a respite. Medications Administered Discontinued Medications Generic Name Dose Route Start Last Admin Trade Name Freq PRN Reason Stop Dose Admin Al Hydroxide/Mg Hydroxide 30 ml 11/16/24 09:57 11/16/24 10:08 Magnesium Hydrox/Alum Hydrox 30 Ml Oral.Susp PO 11/16/24 09:58 30 ml ONCE ONE Administration Benztropine Mesylate 0.5 mg 11/16/24 12:15 11/17/24 08:21 Benztropine Mesylate 0.5 Mg Tablet PO 0.5 mg BID SERENA Administration Gabapentin 100 mg 11/16/24 15:00 11/17/24 08:56 Gabapentin 100 Mg Capsule PO 100 mg TID SERENA Administration Lorazepam 1 mg 11/16/24 06:09 11/16/24 06:17 Lorazepam 1 Mg Tablet PO 11/16/24 06:10 1 mg ONCE ONE Administration Olanzapine 30 mg 11/16/24 21:00 11/16/24 21:51 Olanzapine 10 Mg Tablet PO 30 mg BEDTIME SERENA Administration Ondansetron HCl 4 mg 11/16/24 06:41 11/16/24 06:44 Ondansetron Odt 4 Mg Tab.Rapdis TRANSLINGU 11/16/24 06:42 4 mg ONCE ONE Administration Prazosin HCl 5 mg 11/16/24 21:00 11/16/24 21:51 Prazosin Hcl 5 Mg Capsule PO 5 mg BEDTIME SERENA Administration Protocol Quetiapine Fumarate 100 mg 11/16/24 12:13 11/16/24 12:36 Quetiapine Fumarate 100 Mg Tablet PO 100 mg TID PRN Administration panic attack Sertraline HCl 200 mg 11/17/24 09:00 11/17/24 08:20 Sertraline Hcl 100 Mg Tablet PO 200 mg DAILY SERENA Administration Trazodone HCl 250 mg 11/16/24 21:00 11/16/24 21:51 Trazodone Hcl 50 Mg Tablet PO 250 mg BEDTIME SERENA Administration Medical Decision Making Medical Decision Making MDM Narrative: Patient's depression PTSD anxiety with a history of substance abuse feeling increased depressed and suicidal after been kicked out from her house on 11/14 will get care team involved Lab Data MDM Lab Attestation statement: I reviewed the patient's lab results. 11/16/24 05:57 11/16/24 05:57 Labs: Lab Results 11/16/24 11/16/24 Range/Units 05:57 09:15 WBC 17.7 H (4.8-10.8) X10*3/uL RBC 5.70 H (4.20-5.50) X10*6/uL Hgb 13.0 (12.0-16.0) g/dl Hct 40.5 (37.0-47.0) % MCV 71.1 L (80.0-98.0) fL MCH 22.8 L (27.0-33.0) pg MCHC 32.1 (31.0-35.0) g/dl RDW 18.9 H (11.0-16.0) % Plt Count 520 H (160-400) X10*3/uL MPV 9.4 (9.4-12.3) fL Immature Gran % (Auto) 0.6 H (0.0-0.4) % Neut % (Auto) 84.1 H (45-73) % Lymph % (Auto) 11.6 L (20-40) % [place] % (Auto) 3.2 (2-11) % Eos % (Auto) 0.2 (0-4) % Baso % (Auto) 0.3 (0-2) % Lymph # (Auto) 2.1 (1.2-4.9) X10*3/uL [place] # (Auto) 0.6 (0.1-1.2) X10*3/uL Eos # (Auto) 0.0 (0.0-0.4) X10*3/uL Baso # (Auto) 0.1 (0.0-0.2) X10*3/uL Abs Immat Gran (auto) 0.10 H (0.00-0.03) X10*3/uL Absolute Neuts (auto) 14.9 H (2.0-8.3) x10*3/uL Absolute Nucleated RBC 0.000 (0.0-0.012) X10*3/uL Nucleated RBC % (auto) 0.0 (0.0-0.2) /100WBC Sodium 141 (135-145) mmol/L Potassium 3.7 (3.3-5.1) mmol/L Chloride 107 (96-108) mmol/L Carbon Dioxide 20 L (22-29) mmol/L Anion Gap 18 (12-20) BUN 14 (9-16) mg/dL Creatinine 0.92 (0.5-1.4) mg/dL Estim Creat Clear Calc 106.6 Estimated GFR > 60 Random Glucose 116 H (60-115) mg/dL Calcium 9.7 (8.4-10.2) mg/dL Total Bilirubin 0.9 (0.0-1.0) mg/dL Direct Bilirubin 0.2 (0.0-0.5) mg/dL AST 27 (5-31) U/L ALT 27 (0-31) U/L Alkaline Phosphatase 105 (39-117) U/L Total Protein 9.2 H (6.5-8.0) g/dL Albumin 5.0 (3.5-5.0) g/dL Lipase 14 (8-78) U/L Urine Test NEGATIVE (NEGATIVE) Salicylates < 5.0 L (15-30) mg/dL Urine Opiates Screen Not Detected (Not Detect) Ur Buprenorphine Scrn Not Detected (Not Detect) ng/mL Ur Oxycodone Screen Not Detected (Not Detect) ng/mL Urine Methadone Screen Not Detected (Not Detect) ng/mL Urine Fentanyl Screen Not Detected (Not Detect) Acetaminophen < 3 (<30) mcg/mL Ur Barbiturates Screen Not Detected (Not Detect) Ur Phencyclidine Scrn Not Detected (Not Detect) Ur Amphetamines Screen Not Detected (Not Detect) U Benzodiazepines Scrn Not Detected (Not Detect) Urine Cocaine Screen Not Detected (Not Detect) U Marijuana (THC) Screen POSITIVE H (Not Detect) Ethyl Alcohol < 10 mg/dL Discharge Plan Discharge Clinical Impression: Depression with suicidal ideation, Cocaine abuse, Anxiety Patient Disposition: Xfer Other Transfer Details: respite Instructions: Polysubstance Use Disorder (ED), Anxiety (ED) Prescriptions: No Action quetiapine 100 mg Tablet 100 mg PO TID PRN (Reason: panic attack) 14 Days Qty: 42 0RF hydroxyzine pamoate 100 mg capsule 100 mg PO TID PRN (Reason: anxiety) 14 Days Qty: 42 0RF benztropine 0.5 mg tablet 0.5 mg PO BID 14 Days Qty: 28 0RF sertraline 100 mg tablet 200 mg PO DAILY 14 Days Qty: 28 0RF olanzapine 10 mg Tablet 30 mg PO BEDTIME 14 Days Qty: 42 0RF prazosin 5 mg Capsule 5 mg PO BEDTIME 14 Days Qty: 14 0RF Protocol: Hold for SBP< HOLD for SBP < : 90 trazodone 100 mg Tablet 250 mg PO BEDTIME 14 Days Qty: 35 0RF clonazepam 2 mg tablet 2 mg PO DAILY PRN (Reason: anxiety) 14 Days Qty: 14 0RF gabapentin 100 mg capsule 100 mg PO TID 14 Days Qty: 42 0RF Referrals: Adrianne Becerril MD [Primary Care Provider] - (Please follow-up as per crisis) Interventions: Z[place]ala-Suicide Risk Severity Scale Last Done: 11/16/24 06:03 ED Discharge Assessment Last Done: 11/17/24 12:56 Discharge Date/Time: 11/17/24 12:58 Print Language: Tamazight
--- NOTE | 2024-11-16 05:59 | PC.NURSE ---
Addendum entered by Tejas Neville RPh 11/16/24 12:25: MED REC CHECKED BY [facility] Original Note: supplemental questions for bh8. reports asthma for medical issues no other inpt presentations for this issue, gets meds from [facility] pharmacy, kicked out of house by BF neighbor saw patient planning on jumping from 4th floor and brought patient here last inpt here 2 weeks ago. contracts for safety here wants help reports hearing [facility] enccouraging self harm.
[2024-11-16 06:02] LABS: Basophils Absolute Auto 0.1 X10*3/uL (0.0-0.2); Basophils Percent Auto 0.3 % (0-2); Eosinophils Percent Auto 0.2 % (0-4); Hematocrit 40.5 % (37.0-47.0); Imm Gran Pct Auto 0.6 % (0.0-0.4); Lymphocytes Absolute Auto 2.1 X10*3/uL (1.2-4.9); Lymphocytes Percent Auto 11.6 % (20-40); MANUAL DIFF FLAG NO; Mean Corpuscular HGB Conc 32.1 g/dl (31.0-35.0); Mean Corpuscular Hemoglobin 22.8 pg (27.0-33.0); Mean Corpuscular Volume 71.1 fL (80.0-98.0); Mean Platelet Volume 9.4 fL (9.4-12.3); Monocytes Absolute Auto 0.6 X10*3/uL (0.1-1.2); Monocytes Percent Auto 3.2 % (2-11); Neutrophils Absolute Auto 14.9 x10*3/uL (2.0-8.3); Neutrophils Percent Auto 84.1 % (45-73); Platelet Count 520 X10*3/uL (160-400); Red Cell Distribution Width 18.9 % (11.0-16.0); White Blood Count 17.7 X10*3/uL (4.8-10.8)
[2024-11-16] MEDS: LORazepam 1 MG TABLET PO (06:17)
[2024-11-16 06:22] LABS: Acetaminophen LAB < 3 mcg/mL (<30); Salicylate < 5.0 mg/dL (15-30)
[2024-11-16 06:37] LABS: Alanine Aminotransferase 27 U/L (0-31); Alkaline Phosphatase 105 U/L (39-117); Anion Gap 18 (12-20); Aspartate Amino Transferase 27 U/L (5-31); Bilirubin Total 0.9 mg/dL (0.0-1.0); Blood Urea Nitrogen 14 mg/dL (9-16); Calcium 9.7 mg/dL (8.4-10.2); Carbon Dioxide 20 mmol/L (22-29); Chloride 107 mmol/L (96-108); Creatinine Clr Calc Pharmacy 106.6; Estimated Glomerular Filt Rate > 60; Ethanol < 10 mg/dL; Glucose Random 116 mg/dL (60-115); Potassium 3.7 mmol/L (3.3-5.1); Sodium 141 mmol/L (135-145); Total Protein 9.2 g/dL (6.5-8.0)
[2024-11-16] MEDS: Ondansetron ODT 4 MG TAB.RAPDIS TRANSLINGU (06:44)
--- NOTE | 2024-11-16 08:02 | PC.NURSE ---
Assumed care of patient at 0645, patient appears to be in no apparent distress this am, sleeping, respirations even and unlabored. Continue plan of care for medical clearance and CARE team emiliana
--- NOTE | 2024-11-16 09:04 | PC.NURSE ---
Patient reporting diffuse abdominal pain, unknown etiology, denies diarrhea and constipation. Pt endorses throwing up twice this am. DR. Vitale made aware at 0902, no new orders at this time
[2024-11-16 09:36] LABS: Amphetamine Screen Urine Not Detected (Not Detect); Barbiturates, Urine Not Detected (Not Detect); Benzodiazepines Screen Urine Not Detected (Not Detect); Buprenorphine Scr Not Detected (Not Detect); Cannabinoid Screen Urine POSITIVE (Not Detect); Cocaine Screen Urine Not Detected (Not Detect); Fentanyl, urine Not Detected (Not Detect); Methadone Screen, Urine Not Detected (Not Detect); Opiate Screen Urine Not Detected (Not Detect); Oxycodone Screen Urine Not Detected (Not Detect); Phencyclidine Screen Urine Not Detected (Not Detect)
[2024-11-16] MEDS: Magnesium Hydrox/Alum Hydrox 30 ML ORAL.SUSP PO (10:08)
[2024-11-16 10:18] LABS: UPreg QC Valid YES; Urine Pregnancy NEGATIVE (NEGATIVE)
[2024-11-16 10:31] LABS: Bilirubin Direct 0.2 mg/dL (0.0-0.5); Lipase 14 U/L (8-78)
[2024-11-16] MEDS: QUEtiapine Fumarate 100 MG TABLET PO (12:36)
[2024-11-16] MEDS: Benztropine Mesylate 0.5 MG TABLET PO ×2 (12:36→21:51)
--- NOTE | 2024-11-16 14:33 | MHC.CARE ---
Patient evaluated by the CARE Team, recommended disposition is ACCS, referral sent to [facility] and is under review. ED provider Dr. Vitale updated
[2024-11-16] MEDS: Gabapentin 100 MG CAPSULE PO ×2 (15:11→21:51)
--- NOTE | 2024-11-16 17:13 | MHC.CARE ---
Accepted to [facility] for 9:[address] Vitale sent 1 week of medication refills to [facility] which patient will bring with her.
--- NOTE | 2024-11-16 20:35 | PC.NURSE ---
ASSUMED CARE OF PT AT APPROXIMATELY 1845. PT HAS BEEN RESTING COMFORTABLY. NO APPARENT DISTRESS AT THIS TIME. PT WILL BE TRANSFERRED TO RESPITE TOMORROW PER CARE TEAM.
[2024-11-16] MEDS: Prazosin HCL 5 MG CAPSULE PO (21:51)
[2024-11-16] MEDS: traZODone HCL 50 MG TABLET 250 MG PO (21:51)
[2024-11-16] MEDS: OLANZapine 10 MG TABLET 30 MG PO (21:51)
[2024-11-17 06:32] VITALS: BP 120/72; PULSE 95; RESP 16; TEMP 37.1; O2SAT 97
[2024-11-17] MEDS: Sertraline HCL 100 MG TABLET 200 MG PO (08:20)
[2024-11-17] MEDS: Benztropine Mesylate 0.5 MG TABLET PO (08:21)
--- NOTE | 2024-11-17 08:44 | MHC.EDTECH ---
Patient requesting toiletries for shower. This tech provided all toiletries and fresh change of clothes. Patient ambulated to bathroom with steady gait. All current needs met.
[2024-11-17] MEDS: Gabapentin 100 MG CAPSULE PO (08:56)
--- NOTE | 2024-11-17 09:14 | PC.NURSE ---
Addendum entered by Francoise Salter RN 11/17/24 09:16: Patient is a 39 yo female with a history of bipolar disorder, anxiety, PTSD recently kicked out from her place by her BF as she was using cocaine 3 months ago, felt suicidal as she does not have any family in this area wanted to jump off the 4th floor of the building has not taken her medication for last 4 days. Patient alert and oriented but anxious regarding the transition. Cooperative with care. Respirations even and non-labored. Pending transfer. Original Note: Accepted to [facility] for 9:45 today
--- NOTE | 2024-11-17 11:04 | PHA.MEDREC ---
Addendum entered by Tejas Neville RPh 11/17/24 11:29: MED REC CHECKED BY [facility] Original Note: Pharmacy Consult ? Medication Reconciliation Pharmacy has reviewed the medication reconciliation done by nursing. Claims match med list.
--- NOTE | 2024-11-17 11:20 | MHC.CARE ---
New intake time 1:30 at [facility] in [place], will send patient via LYFT when her medications are ready.
[2024-11-17 12:56] VITALS: BP 120/72; PULSE 95; RESP 16; TEMP 37.1; O2SAT 97
== END 2024-11-17 12:58 | disposition other institution (70) ==
PROVIDERS: Emergency Medicine Emergency Medical Services; Emergency Provider Internal Medicine; PCP General Practice
DX: F33.1 Major depressive disorder, recurrent, moderate (principal); R45.851 Suicidal ideations; F14.10 Cocaine abuse, uncomplicated; F41.9 Anxiety disorder, unspecified; R10.2 Pelvic and perineal pain; Z51.81 Encounter for therapeutic drug level monitoring; Z79.899 Other long term (current) drug therapy
CPT/HCPCS: 36415; 74176; 80053; 80143; 80179; 80307; 81025; 82248; 83690; 85025; 99285; S9485

== ENCOUNTER → 2024-11-16 09:58 | Outpatient (BNV) | payer MEDICAID, SELFPAY | PROVIDERS: Emergency Provider Internal Medicine; PCP General Practice; Visit Provider Radiology Diagnostic Radiology | DX: K76.0 Fatty (change of) liver, not elsewhere classified (principal) | CPT/HCPCS: 74176 ==

== ENCOUNTER 2025-01-14 07:02 | Inpatient (IN) | payer OTHER, SELFPAY ==
[2025-01-14 07:14] VITALS: BP 130/84; PULSE 67; O2SAT 99
[2025-01-14 07:15] VITALS: BP 119/74; PULSE 63; RESP 18; TEMP 36.6; O2SAT 98; BMI 35.4
--- OUTSIDE RECORDS SUMMARY | 2025-01-14 07:48 | XMS_ITS | Patient Health Record ---
Author Organization [facility] Address [address] [place] [phone] Care Team Providers Care Sales Clerk Supervisor Name Role Phone NO, PCP Primary Care Provider [phone] [facility], Nursing Unavailable [phone] [facility], [facility] Unavailable [phone] Reason For Referral No Information Encounters Encounter Location Date Provider Diagnosis [address] [id number] 12/07/[address] [facility] Plan Of Treatment Next Appt Details Provider Name:Nursing [facility], 02/05/2025 01:30:00 PM, [address] [place] [address], [phone], Insurance Providers Payer Name Payer Address Payer Phone Subscriber Number Group Number Insured Name Patient Relationship to Insured Coverage Start Date Coverage End Date [place] Medicaid C3 [address] [place], [place] [id number] Kymberly Melgar Self - patient is the insured
--- OUTSIDE RECORDS SUMMARY | 2025-01-14 07:48 | XMS_ITS | Encounter Summary ---
Author Organization [facility] Address [address] [place] [address] [address] [place] [address] Care Team Providers Care Riprap Placing Supervisor Name Role Phone Adrianne Becerril MD Primary Care Provider [phone] Reason for Visit * Reason Onset Date Comments Med Refill 11/23/2024 Encounter Details Date Type Department Care Team ([facility] st Contact Info) Description 11/23/2024 Refill [facility] [address] [place] [address] Kristie Bañuelos MD [address] [place] [address] Severe episode of recurrent major depressive disorder, [...] as of this encounter Plan of Treatment Upcoming Encounters Date Type Department Care Team (Late st Contact Info) Description 02/02/2025 11:15 AM EDT Office Visit [facility] [address] [place] [address] Nataly Herndon CNM [address] [place] [address] documented as of this encounter Visit Diagnoses Diagnosis Severe episode of recurrent major depressive disorder, with psychotic features (CMS/HCC) documented in this encounter Additional Health Concerns Assessment Noted Time PHQ-9 Depression Total Score: 0 09/18/19 25 1:38 PM EDT documented as of this encounter Care Teams Riprap Placing Supervisor Relationship Specialty Start Date End Date Adrianne Becerril MD [address] [place] [id number] PCP - General Family Medicine 02/14/24 Angelica Merrill WaiterMonkey Breeder 09/12/23 documented as of this encounter
--- OUTSIDE RECORDS SUMMARY | 2025-01-14 07:48 | XMS_ITS | Patient Health Record ---
Author Organization [facility] Address [address] [place] [address] Care Team Providers Care [employer] Officer Name Role Phone CAROLYN KAUR M.D. Primary Care Provider Arnulfo Draper Jr Unavailable Allergies Allergen (clinical drug ingredient) Drug/Non Drug Allergy documented on EMR Reaction Allergy Type Onset Date Status Penicillin Unknown Drug Allergy Active almond allergenic extract [place] (Diagnostic) Unknown Drug Allergy Active Reason For Referral No Information Medications Medication SIG (Take, Route, Fr equency, Duration) Notes Start Date End Date Status Omeprazole 20 MG 1 Orally b.i.d. for 30 day(s) 09/09/2023 Active clonazePAM 0.5 MG TAKE 1 TABLET BY EMILY TH ONCE DAILY NEEDED DIRECTED Oral for 30 Active EPINEPHrine 0.3 MG/0.3ML INJECT INTRAMUS CULARLY DIRECTED ON PACKAGE AND GO TO EMERGENCY ROOM Injection for 1 Active OLANZapine 10 MG TAKE 1 TABLET BY EMILY TH TWICE DAILY Oral for 90 Active Prazosin HCl 1 MG TAKE 3 CAPSULES BY M OUTH EVERY DAY Oral for 30 Active Benztropine Mesylate 0.5 MG TAKE 1 TABLET BY MOUTH TWICE DAILY Oral for 90 Active Haloperidol 5 MG TAKE 1 TABLET BY EMILY TH TWICE DAILY Oral for 30 Active metFORMIN HCl 500 MG TAKE 1 TABLET BY MO UTH AT BEDTIME Oral for 30 Active traZODone [...] 50 MG TAKE 3 TABLETS BY M OUTH EVERY DAY Oral for 30 Active Omeprazole [...] Problem Status W/U Status Risk Notes Problem 61600407 Epigastric pain (R10.13) Active confirmed Problem Gastroesophageal reflux disease (K21.9) Active confirmed Problem 7243316 Hematemesis with nausea (K92.0) Active confirmed Problem 59332114 Nausea and vomit ing, unspecified vomiting type (R11.2) Active confirmed Plan Of Treatment Pending Test Test Name Order Date CELIAC PANEL #10 11/06/2023 Future Test Test Name Order Date UPPER GI ENDOSCOPY 09/09/2023 Insurance Providers Payer Name Payer Address Payer Phone Subscriber Number Group Number Insured Name Patient Relationship to Insured Coverage Start Date Coverage End Date MEDICAID OF [employer] [facility] [address] [place] [phone] [id number] ALISE YANES Self - patient is the insured Medical (General) History Medical History History ICD Code Asthma Anxiety/depression Panic attacks Substance abuse Surgical History Surgery Date(Month/Year) section and ovary surgery Hospitalization History Reason Date(Month/Year) 13 days in the hospital for a panic merle ck last week
[2025-01-14 07:55] LABS: MANUAL DIFF FLAG NO
[2025-01-14 07:58] LABS: Hematocrit 32.4 % (37.0-47.0); Hemoglobin 10.7 g/dl (12.0-16.0); Imm Gran Abs Auto 0.06 X10*3/uL (0.00-0.03); Imm Gran Pct Auto 0.5 % (0.0-0.4); Lymphocytes Absolute Auto 1.9 X10*3/uL (1.2-4.9); Mean Corpuscular HGB Conc 33.0 g/dl (31.0-35.0); Mean Corpuscular Hemoglobin 23.4 pg (27.0-33.0); Mean Corpuscular Volume 70.9 fL (80.0-98.0); NRBC Abs Auto 0.000 X10*3/uL (0.0-0.012); NRBC Pct Auto 0.0 /100WBC (0.0-0.2); Platelet Count 475 X10*3/uL (160-400); Red Blood Count 4.57 X10*6/uL (4.20-5.50); White Blood Count 11.6 X10*3/uL (4.8-10.8)
[2025-01-14 07:59] LABS: Appearance Urine Cloudy; Glucose Urine UA Negative (Negative); PH 6.0 (5.0-9.0); Specific Gravity - Urine >= 1.030 (1.005-1.025); UMIC TRIGGER UACC YES
[2025-01-14 08:01] LABS: UPreg QC Valid YES
--- NOTE | 2025-01-14 08:03 | MHC.EDTECH ---
Patient has bruising to inside of left arm, states had norplant planted 5 days ago. RN aware
--- NOTE | 2025-01-14 08:04 | MHC.EDTECH ---
Patient arrives to pod with 6 hair ties in hair. This tech removed all ties and had patient shake out hair, one hairtie provided back to patient.
[2025-01-14 08:08] LABS: Cannabinoid Screen Urine POSITIVE (Not Detect)
[2025-01-14 08:12] LABS: UACC Culture Trigger YES
[2025-01-14 08:15] VITALS: BP 119/71; PULSE 84; RESP 14; TEMP 36.4; O2SAT 97
--- NOTE | 2025-01-14 08:15 | ED_ITS ---
HPI - General Adult General Chief complaint: Psychiatric Symptoms Stated complaint: SI with a plan, dizzy, n/v Time Seen by Provider: 01/14/25 08:10 Source: patient and EMS Mode of arrival: EMS Limitations: no limitations History of Present Illness ED Provider: Allyson Ferrara PA-C HPI narrative: Patient is a 39 year old assigned female at with a history of PTSD, bipolar disorder, anxiety, DAVE, and substance use / abuse presenting to the emergency department today with suicidal ideation. Patient states that she is having thoughts of killing herself by jumping in front of a train. Patient denies any dizziness, lightheadedness, abdominal pain, nausea, vomiting, fever, chills, blurry vision, double vision, loss of vision, chest pain, difficulty breathing, shortness of breath, back pain, night sweats, pain with urination, increased urinary frequency, increased urinary urgency, blood in her urine or stool, syncope or a near syncopal episode, recent trauma or falls, bowel incontinence, bladder incontinence, or any other complaints at this time. Relieving factors: none Exacerbating factors: none Associated symptoms: denies other symptoms Treatments prior to arrival: none Related Data Home Medications ?Medication ?Instructions ?Recorded ?Confirmed fluticasone furoate 200 1 inh inhalation DAILY 01/1401/14/25 mcg/actuation blister powder for inhalation (Arnuity Ellipta) metformin 500 mg tablet 500 mg PO BEDTIME 01/14/25 0 01/14/25 ondansetron HCl 4 mg tablet 8 mg PO Q12H PRN nausea/vo miting 01/14/25 01/14/25 quetiapine 100 mg tablet 100 mg PO TID PRN anxiety 01/14/25 sertraline 100 mg tablet 200 mg PO DAILY 01/14/25 trazodone 100 mg tablet 250 mg PO BEDTIME 01/14/25 0 01/14/25 Previous Rx's ?Medication ?Instructions ?Recorded benztropine 0.5 mg tablet 0.5 mg PO BID 14 days #28 ta bs 10/27/24 clonazepam 2 mg tablet 2 mg PO DAILY PRN anxiety 14 days 10/27/24 #14 tabs gabapentin 100 mg capsule 100 mg PO TID depressive dis order 10/27/24 14 days #42 caps hydroxyzine pamoate 100 mg capsule 100 mg PO TID PRN a nxiety 14 days 10/27/24 #42 caps olanzapine 10 mg tablet 30 mg (3 x 10 mg) PO BEDTIME 14 10/27/24 days #42 tabs Allergies Allergy/AdvReac Type Severity Reaction Status Date / Time almond Allergy Severe Anaphylaxis Verified 01/14/25 07:18 Penicillins Allergy Severe Anaphylaxis Verified 01/14/25 07:18 shrimp Allergy Severe Anaphylaxis Verified 01/14/25 07:18 peanuts Allergy Severe Anaphylaxis Uncoded 01/14/25 07:18 Review of Systems 2 Constitutional: Constitutional: Reports no additional constitutional complaints, Denies chills, Denies fever(s) and Denies night sweats Eyes: Eyes: Reports no additional eye complaints, Denies blurry vision, Denies change in vision, Denies diplopia, Denies eye discharge, Denies loss of vision and Denies eye pain ENT: Denies dizziness Cardiovascular: Cardiovascular: Reports no additional cardiovascular complaints, Denies chest pain, Denies lightheadedness, Denies Loss of Consciousness and Denies dyspnea Respiratory: Respiratory: Reports no additional respiratory complaints and Denies dyspnea Gastrointestinal: Gastrointestinal: Reports no additional gastrointestinal complaints, Denies abdominal pain, Denies melena, Denies hematochezia, Denies change in bowel habits and Denies change in stool character Genitourinary: Genitourinary: Denies hematuria, Denies urinary frequency, Denies dysuria, Denies urinary incontinence, Denies urinary hesitancy and Denies urinary urgency Musculoskeletal: Musculoskeletal: Reports no additional musculoskeletal complaints, Denies numbness and Denies tingling Neurologic: Denies dizziness, Denies loss of vision, Denies numbness and Denies tingling Psychiatric: Psychiatric: Reports depression, Denies homicidal ideation and Reports suicidal ideation Endocrine: Endocrine: Reports no additional endocrine complaints Hematologic/Lymphatic: Hematologic/Lymphatic: Reports no additional hematologic/lymphatic complaints Allergic/Immunologic: Allergic/Immunologic: Reports no additional allergic/immunologic complaints PMFSH Past Medical History Attestation statement: The following information was validated with the patient. Source: old records reviewed and nursing notes reviewed Medical History Auditory hallucination UTI (urinary tract infection) Suicidal ideation Urinary tract infection Suicidal ideation Substance abuse Bipolar disorder Anxiety Depression Anxiety and depression Nausea & vomiting History of irregular heartbeat Acute posttraumatic stress disorder UTI (urinary tract infection) Asthma exacerbation Surgical History History of surgery Hx of section Social History Social History Household Members: Other Household Members Other:: Ex Housing: Other Housing Other:: Patient must be out of house by 11/14/24 Do you presently have visiting nurse or other home services: No Alcohol intake: former Patient Tobacco Use Status: Current everyday Tobacco user Tobacco use type: Cigarette Cigarette Packs Per Day: 0.25 Cigarettes Per Day: 5.0 Years Smoked: 23 Smoked in Last 30 Days: No e-Cigarette/Vaping Use: Currently Using Second Hand Smoke Exposure: Yes Use of substances other than those prescribed or required for medical reasons: No Substance Use Type: Marijuana Advance Directives: No Advance Directives Information Provided: Yes service: No Sexual orientation: Straight/Heterosexual Physical Exam ED Vital Signs: Vital Signs - 24 hr 01/14/25 07:15 01/14/25 08:15 Temperature 97.8 F 97.5 F Pulse Rate 63 84 Respiratory Rate 18 14 Blood Pressure 119/74 119/71 Pulse Oximetry 98 97 Oxygen Delivery Method Room Air Room Air BMI result Body Mass Index 35.4 Const General: cooperative, no acute distress, alert and awake Nutritional Appearance: well nourished Orientation/consciousness: patient oriented x3 HENMT Head: Yes normal to inspection and Yes atraumatic Ears: hearing grossly normal bilaterally and external ears normal General nose exam: Normal external nose present, no nasal discharge noted and no epistaxis Face and sinus: Yes normal facial exam, No abrasion and No laceration Mouth: Normal oral and palatal mucosa present, no drooling and no muffled voice Eyes General: appearance normal, both eyes and all related structures Periorbital: periorbital findings normal Eyelids: Yes eyelids normal Conjunctivae: conjunctivae normal Pupils: Equal, round and reactive pupils present EOM: EOMs intact bilaterally Neck Neck: Yes normal visual inspection, Yes full ROM and Yes no lymphadenopathy Resp Effort & Inspection: normal respiratory effort and able to speak in complete sentences Neuro General: patient oriented x3, moves all extremities and CN's II-XI intact bilaterally Cranial nerves: Yes Equal, round and reactive pupils present Cognition (Neuro): normal cognition Extrem General: Yes normal to inspection, Yes full ROM and Yes capillary refill normal Psych Appearance: grossly normal Mental Status: mental status grossly normal Affect: Sad affect present Attitude: Guarded attititude/behavior present Thought content: Suicidality present Medications Administered Discontinued Medications Generic Name Dose Route Start Last Admin Trade Name Serena PRN Reason Stop Dose Admin Ondansetron HCl 4 mg 01/14/25 10:47 01/14/25 12:02 Ondansetron Odt 4 Mg Tab.Rapdis TRANSLINGU 01/14/25 10:48 4 mg ONCE ONE Administration Medical Decision Making Medical Decision Making MDM Narrative: Patient is a 39 year old assigned female at with a history of PTSD, bipolar disorder, anxiety, DAVE, and substance use / abuse presenting to the emergency department today with suicidal ideation. Patient's physical exam was as noted in the physical exam portion of this note. Patient's blood work was unremarkable. Patient's urine showed a possible UTI however - the patient has no UTI symptoms. Patient states that she was nauseous but this is how her anxiety presents - per the patient. Reviewing her previous cultures, her last UA which appeared similar to this one had NO GROWTH. Will await culture before initiating treatment. Patient's EKG was unremarkable. CARE team met with the patient and recommended inpatient level of psychiatric care. Patient admitted to our psychiatric unit. I explained my physical exam findings as well as all test results to the patient. I answered all questions asked by the patient. Patient verbalized agreement and understanding with this treatment plan and admission to out psychiatric unit. Note: I attempted to clarify the patient's diabetic status and she stated I am told by my doctor to check my sugar and take Metformin at night but I am NOT a diabetic . Admitting provider made aware that patient's medicine, including Metformin, was continued however, the patient is on a regular diet. Differential Diagnosis Differential Diagnoses: The differential diagnosis associated with the presentation includes SI Depression Admission/Observation Consideration of admission/observation: Escalation of care including admission/observation considered Patient admitted to the psychiatric unit. Consult Healthcare Provider Management of the patient was discussed with: Behavioral Health Provider (spoke with the CARE team as noted in the MDM Rationale portion of this note. ) Lab Data [facility] Lab Attestation statement: I reviewed the patient's lab results. My interpretation of these results are in the MDM Rationale portion of this note. 01/14/25 07:49 01/14/25 07:49 Labs: Lab Results 01/14/25 Range/Units 07:49 WBC 11.6 H (4.8-10.8) X10*3/uL RBC 4.57 (4.20-5.50) X10*6/uL Hgb 10.7 L (12.0-16.0) g/dl Hct 32.4 L (37.0-47.0) % MCV 70.9 L (80.0-98.0) fL MCH 23.4 L (27.0-33.0) pg MCHC 33.0 (31.0-35.0) g/dl RDW 17.2 H (11.0-16.0) % Plt Count 475 H (160-400) X10*3/uL MPV 9.5 (9.4-12.3) fL Immature Gran % (Auto) 0.5 H (0.0-0.4) % Neut % (Auto) 78.2 H (45-73) % Lymph % (Auto) 16.6 L (20-40) % [place]bour % (Auto) 4.3 (2-11) % Eos % (Auto) 0.1 (0-4) % Baso % (Auto) 0.3 (0-2) % Lymph # (Auto) 1.9 (1.2-4.9) X10*3/uL Barbour # (Auto) 0.5 (0.1-1.2) X10*3/uL Eos # (Auto) 0.0 (0.0-0.4) X10*3/uL Baso # (Auto) 0.0 (0.0-0.2) X10*3/uL Abs Immat Gran (auto) 0.06 H (0.00-0.03) X10*3/uL Absolute Neuts (auto) 9.1 H (2.0-8.3) x10*3/uL Absolute Nucleated RBC 0.000 (0.0-0.012) X10*3/uL Nucleated RBC % (auto) 0.0 (0.0-0.2) /100WBC Sodium 140 (135-145) mmol/L Potassium 3.9 (3.3-5.1) mmol/L Chloride 108 (96-108) mmol/L Carbon Dioxide 22 (22-29) mmol/L Anion Gap 14 (12-20) BUN 14 (9-16) mg/dL Creatinine 0.92 (0.5-1.4) mg/dL Estim Creat Clear Calc 109.0 Estimated GFR > 60 Random Glucose 104 (60-115) mg/dL Calcium 9.3 (8.4-10.2) mg/dL Total Bilirubin 0.9 (0.0-1.0) mg/dL AST 33 H (5-31) U/L ALT 30 (0-31) U/L Alkaline Phosphatase 80 (39-117) U/L Total Protein 8.6 H (6.5-8.0) g/dL Albumin 4.5 (3.5-5.0) g/dL Urine Color Dark Yellow Urine Appearance Cloudy Urine pH 6.0 (5.0-9.0) Ur Specific [place] >= 1.030 H (1.005-1.025) Urine Protein 30 (1+) H (Neg-Trace) mg/dL Urine Glucose (UA) Negative (Negative) mg/dL Urine Ketones 40 (Negative) mg/dL Urine Blood Small (1+) H (Negative) Urine Nitrite Negative (Negative) Ur Leukocyte Esterase Small (1+) H (Negative) Urine RBC 3-5 H (0-2) /HPF Urine WBC 6-10 H (0-5) /HPF Ur Squamous Epith Cells >20 (0-2) /HPF Urine Bacteria 4+ (None Seen) Hyaline Casts 0-2 (0-2) /LPF Urine Test NEGATIVE (NEGATIVE) Salicylates < 5.0 L (15-30) mg/dL Urine Opiates Screen Not Detected (Not Detect) Ur Buprenorphine Scrn Not Detected (Not Detect) ng/mL Ur Oxycodone Screen Not Detected (Not Detect) ng/mL Urine Methadone Screen Not Detected (Not Detect) ng/mL Urine Fentanyl Screen POSITIVE H (Not Detect) Acetaminophen < 3 (<30) mcg/mL Ur Barbiturates Screen Not Detected (Not Detect) Ur Phencyclidine Scrn Not Detected (Not Detect) Ur Amphetamines Screen POSITIVE H (Not Detect) U Benzodiazepines Scrn Not Detected (Not Detect) Urine Cocaine Screen Not Detected (Not Detect) U Marijuana (THC) Screen POSITIVE H (Not Detect) Ethyl Alcohol < 10 mg/dL Independent Interpretation I performed an independent interpretation of an: EKG Interpretation: I independently interpreted this EKG and am in agreement with the below findings: Vent. Rate: 66 BPM Atrial Rate: 66 BPM P-R Int: 112 ms QRS Dur: 78 ms QT Int: 416 ms P-R-T Axes: -2 59 46 degrees QTcB Int: 436 ms Normal sinus rhythm Normal ECG When compared with ECG of 21-Oct-2024 08:37, Nonspecific T wave abnormality, improved in Anterior leads DD/ 1113 Radiology Impression Discussion of test interpretation with radiology: I have reviewed the radiologist's reading. Independent Historian Clinical information obtained from an independent historian. History obtained from or confirmed by: EMS (EMS provided additional history and confirmed the history provided by the patient. ) Critical Care Time Critical Care Time Critical Care Time: Yes Total Critical Care Time: 32 Attestation: I spent 32 minutes of Critical Care Time with this patient. This does not include time spent on separately reported billable procedures. Discharge Plan Discharge Clinical Impression: Suicidal ideation Patient Disposition: Admitted As Inpatient
[2025-01-14 08:18] LABS: Acetaminophen LAB < 3 mcg/mL (<30); Alanine Aminotransferase 30 U/L (0-31); Albumin Level 4.5 g/dL (3.5-5.0); Alkaline Phosphatase 80 U/L (39-117); Anion Gap 14 (12-20); Aspartate Amino Transferase 33 U/L (5-31); Blood Urea Nitrogen 14 mg/dL (9-16); Calcium 9.3 mg/dL (8.4-10.2); Carbon Dioxide 22 mmol/L (22-29); Chloride 108 mmol/L (96-108); Creatinine Clr Calc Pharmacy 109.0; Estimated Glomerular Filt Rate > 60; Potassium 3.9 mmol/L (3.3-5.1); Salicylate < 5.0 mg/dL (15-30); Sodium 140 mmol/L (135-145); Total Protein 8.6 g/dL (6.5-8.0)
--- NOTE | 2025-01-14 10:47 | ECG_ITS ---
Test Reason : r/o prolonged qt Blood Pressure : */* mmHG Vent. Rate : 66 BPM Atrial Rate : 66 BPM P-R Int : 112 ms QRS Dur : 78 ms QT Int : 416 ms P-R-T Axes : -2 59 46 degrees QTcB Int : 436 ms Normal sinus rhythm Normal ECG When compared with ECG of 21-Oct-2024 08:37, Nonspecific T wave abnormality, improved in Anterior leads Referred By: Allyson Ferrara Electronically Signed By: PRINCESS ORLANDO MD
--- NOTE | 2025-01-14 11:10 | PC.NURSE ---
med rec completed using claim history , patients home medication patient brought to ED with her, and patient report of home medications
--- NOTE | 2025-01-14 12:05 | PHA.MEDREC ---
Pharmacy Consult ? Medication Reconciliation Pharmacy has reviewed the medication reconciliation completed by nursing. Confirmed trazodone dosing was 250mg at bedtime.
--- NOTE | 2025-01-14 13:26 | MHC.CARE ---
Patient evaluated by the CARE Team, disposition inpatient psychiatric treatment. ED provider, JULIO Corona
[2025-01-14 14:29] VITALS: BP 127/69; PULSE 81; RESP 16; TEMP 36.2; O2SAT 99
[2025-01-14 14:36] VITALS: BMI 31.7
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
[2025-01-14] MEDS: Magnesium Hydrox/Alum Hydrox 30 ML ORAL.SUSP PO (16:00)
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
[2025-01-14 20:00] VITALS: BP 119/60; PULSE 61; RESP 16; TEMP 37; O2SAT 98
[2025-01-14 22:04] LABS: Glucose, Whole Blood 86 mg/dL (60-115)
[2025-01-15 07:31] VITALS: BP 132/63; PULSE 78; RESP 16; TEMP 36.8; O2SAT 96
[2025-01-15 08:43] LABS: Hemoglobin A1C 108.3677 umol/L; Total Hemoglobin (HGBA1C) 3001.8277 umol/L
[2025-01-15 08:51] LABS: Alanine Aminotransferase 32 U/L (0-31); Albumin Level 4.7 g/dL (3.5-5.0); Alkaline Phosphatase 84 U/L (39-117); Anion Gap 15 (12-20); Aspartate Amino Transferase 25 U/L (5-31); Blood Urea Nitrogen 15 mg/dL (9-16); Calcium 9.2 mg/dL (8.4-10.2); Carbon Dioxide 23 mmol/L (22-29); Chloride 106 mmol/L (96-108); Cholesterol 286 mg/dL (<200); Creatinine Clr Calc Pharmacy 101.9; Estimated Glomerular Filt Rate > 60; HDL Cholesterol 25 mg/dL (>40); Potassium 3.3 mmol/L (3.3-5.1); Sodium 141 mmol/L (135-145); Total Protein 8.8 g/dL (6.5-8.0); Triglycerides 184 mg/dL (<150)
--- NOTE | 2025-01-15 10:19 | HO.PSYCHPN ---
Subjective Subjective Date of Service: 01/15/25 Reason For Visit: crisis Subjective Notes: Conditional Voluntary Interim History: Active on unit. social with peers. attending groups. Pt reports feeling tired but anxious today. Feels she may be getting a cold. Ordered COVID test. denies SI/HI/VH/AH. Continue current tx plan. Medication Compliance: Yes Side effects from medications: No Attending Groups: Yes Mental Status Exam Mental Status Exam Narrative: Pt is alert and oriented; behavior is cooperative and calm; dressed in casual attire; mood is described as anxious ; eye contact appropriate; Speech is normal rate, volume and not pressured; thought process is organized; Thought content is on tx; denies SI/HI/VH/AH. Diagnostics Vital Signs (24Hr): Vital Signs - 24 hr 01/14/25 14:29 01/14/25 20:00 01/15/25 07:31 Temperature 97.1 F 98.6 F 98.2 F Pulse Rate 81 61 78 Respiratory Rate 16 16 16 Blood Pressure 127/69 119/60 132/63 Pulse Oximetry 99 98 96 Oxygen Delivery Method Room Air Room Air Room Air BMI result Body Mass Index 31.7 Labs 01/14/25 07:49 01/15/25 08:11 Labs: Laboratory Results - last 48 hr 01/14/25 01/14/25 01/15/25 07:49 21:59 08:11 WBC 11.6 H RBC 4.57 Hgb 10.7 L Hct 32.4 L MCV 70.9 L MCH 23.4 L MCHC 33.0 RDW 17.2 H Plt Count 475 H MPV 9.5 Immature Gran % (Auto) 0.5 H Neut % (Auto) 78.2 H Lymph % (Auto) 16.6 L [place] % (Auto) 4.3 Eos % (Auto) 0.1 Baso % (Auto) 0.3 Lymph # (Auto) 1.9 [place] # (Auto) 0.5 Eos # (Auto) 0.0 Baso # (Auto) 0.0 Abs Immat Gran (auto) 0.06 H Absolute Neuts (auto) 9.1 H Absolute Nucleated RBC 0.000 Nucleated RBC % (auto) 0.0 Sodium 140 141 Potassium 3.9 3.3 Chloride 108 106 Carbon Dioxide 22 23 Anion Gap 14 15 BUN 14 15 Creatinine 0.92 0.93 Estim Creat Clear Calc 109.0 101.9 Estimated GFR > 60 > 60 POC Glucose 86 Random Glucose 104 100 Estimat Average Glucose 111 Hemoglobin A1c % 5.5 Calcium 9.3 9.2 Total Bilirubin 0.9 0.8 AST 33 H 25 ALT 30 32 H Alkaline Phosphatase 80 84 Total Protein 8.6 H 8.8 H Albumin 4.5 4.7 Triglycerides 184 H Cholesterol 286 H LDL Cholesterol, Calc 225 H HDL Cholesterol 25 L Urine Color Dark Yellow Urine Appearance Cloudy Urine pH 6.0 Ur Specific [place] >= 1.030 H Urine Protein 30 (1+) H Urine Glucose (UA) Negative Urine Ketones 40 Urine Blood Small (1+) H Urine Nitrite Negative Ur Leukocyte Esterase Small (1+) H Urine RBC 3-5 H Urine WBC 6-10 H Ur Squamous Epith Cells >20 Urine Bacteria 4+ Hyaline Casts 0-2 Urine Test NEGATIVE Salicylates < 5.0 L Urine Opiates Screen Not Detected Ur Buprenorphine Scrn Not Detected Ur Oxycodone Screen Not Detected Urine Methadone Screen Not Detected Urine Fentanyl Screen POSITIVE H Acetaminophen < 3 Ur Barbiturates Screen Not Detected Ur Phencyclidine Scrn Not Detected Ur Amphetamines Screen POSITIVE H U Benzodiazepines Scrn Not Detected Urine Cocaine Screen Not Detected U Marijuana (THC) Screen POSITIVE H Ethyl Alcohol < 10 Medications Medications Current Medications Acetaminophen (Acetaminophen 325 Mg Tablet) 650 mg PO Q6H PRN PRN Reason: Headache/Pain, Scale 1-10 Al Hydroxide/Mg Hydroxide (Magnesium Hydrox/Alum Hydrox 30 Ml Oral.Susp) 30 ml PO Q6H PRN PRN Reason: Heartburn/Nausea Last Admin: 01/14/25 16:00 Dose: 30 ml Benztropine Mesylate (Benztropine Mesylate 0.5 Mg Tablet) 0.5 mg PO BID [facility] Last Admin: 01/15/25 09:00 Dose: 0.5 mg Clonazepam (Clonazepam 1 Mg Tablet) 2 mg PO DAILY PRN PRN Reason: Anxiety Fluticasone Propionate (Fluticasone Propionate 250 Mcg Blst.W.Dev) 1 puff INHALE RBID [facility] Gabapentin (Gabapentin 100 Mg Capsule) 100 mg PO TID [facility] Last Admin: 01/15/25 09:00 Dose: 100 mg Hydroxyzine HCl (Hydroxyzine Hcl 50 Mg Tablet) 100 mg PO TID PRN PRN Reason: Anxiety Magnesium Hydroxide (Milk Of Magnesia 30 Ml Oral.Susp) 30 ml PO DAILY PRN PRN Reason: Constipation Metformin HCl (Metformin Hcl 500 Mg Tablet) 500 mg PO BEDTIME [facility] Last Admin: 01/14/25 20:45 Dose: 500 mg Nicotine (Nicotine 21 Mg Patch.Td24) 21 mg TRANSDERMA DAILY [facility] Nicotine Polacrilex (Nicotine Polacrilex 2 Mg Gum) 4 mg BUCCAL Q2H PRN PRN Reason: Nicotine Cravings Olanzapine (Olanzapine 10 Mg Tablet) 30 mg PO BEDTIME [facility] Last Admin: 01/14/25 20:45 Dose: 30 mg Omeprazole (Omeprazole 20 Mg Capsule.Dr) 20 mg PO BID@0630,1630 [facility] Last Admin: 01/15/25 06:05 Dose: 20 mg Ondansetron HCl (Ondansetron Odt 8 Mg Tab.Rapdis) 8 mg TRANSLINGU Q12H PRN PRN Reason: nausea/vomiting Last Admin: 01/15/25 07:22 Dose: 8 mg Prazosin HCl (Prazosin Hcl 1 Mg Capsule) 4 mg PO BEDTIME [facility]; Protocol Last Admin: 01/14/25 20:45 Dose: 4 mg Quetiapine Fumarate (Quetiapine Fumarate 100 Mg Tablet) 100 mg PO TID PRN PRN Reason: Anxiety Last Admin: 01/15/25 09:00 Dose: 100 mg Sertraline HCl (Sertraline Hcl 100 Mg Tablet) 200 mg PO DAILY [facility] Last Admin: 01/15/25 09:00 Dose: 200 mg Trazodone HCl (Trazodone Hcl 50 Mg Tablet) 250 mg PO BEDTIME [facility] Last Admin: 01/14/25 20:44 Dose: 250 mg Allergies Allergies Allergy/AdvReac Type Severity Reaction Status Date / Time almond Allergy Severe Anaphylaxis Verified 01/14/25 07:18 Penicillins Allergy Severe Anaphylaxis Verified 01/14/25 07:18 shrimp Allergy Severe Anaphylaxis Verified 01/14/25 07:18 peanuts Allergy Severe Anaphylaxis Uncoded 01/14/25 07:18 Assessment & Plan Assessment & Plan (1) Major depression with psychotic features: Status: Acute Code(s): F32.3 - Major depressive disorder, single episode, severe with psychotic features (2) DAVE (generalized anxiety disorder): Status: Acute Code(s): F41.1 - Generalized anxiety disorder (3) PTSD (post-traumatic stress disorder): Status: Acute Code(s): F43.10 - Post-traumatic stress disorder, unspecified (4) Polysubstance abuse: Status: Acute Code(s): F19.10 - Other psychoactive substance abuse, uncomplicated Plan Patient is a 39-year-old female with history of MDD, PTSD and cocaine use disorder who presented to [facility] via ambulance due to suicidal ideation secondary to increased depression and anxiety. Plan: CV 15 minute safety checks Continue home medications obtain collateral encourage groups discharge planning 01/15: Active on unit. social with peers. attending groups. Pt reports feeling tired but anxious today. Feels she may be getting a cold. Ordered COVID test. denies SI/HI/VH/AH. Continue current tx plan. Patient educated on: diagnosis, medication risk/benefits and therapeutic strategies Reason for continued inpatient stay Substantial Risk for: med/psych decompensation Time Spent With Patient Time: Total time managing care of this patient today _20___ minutes.
[2025-01-15] MEDS: Throat Lozenge, Medicated LOZENGE 1 LOZENGE MUCOUS MEM ×2 (11:44→21:04)
[2025-01-15] MEDS: Nicotine 21 MG PATCH.TD24 TRANSDERMA (11:46)
--- NOTE | 2025-01-15 11:47 | PC.NURSE ---
[employer] form was offered and declined from the pt.
[2025-01-15 13:51] LABS: Resp Syncy Virus RNA Qual PCR NEGATIVE (Negative); SARS COV2 PCR INHOUSE NEGATIVE (Negative)
[2025-01-15 20:19] VITALS: BP 124/66; PULSE 77; TEMP 36.7; O2SAT 98
[2025-01-15 20:39] LABS: Glucose, Whole Blood 110 mg/dL (60-115)
[2025-01-15] MEDS: TRAZODONE HCL 250 MG PO (21:12)
[2025-01-16] MEDS: Throat Lozenge, Medicated LOZENGE 1 LOZENGE MUCOUS MEM ×3 (07:00→21:19)
[2025-01-16 07:43] LABS: Glucose, Whole Blood 99 mg/dL (60-115)
[2025-01-16 07:44] VITALS: BP 138/76; PULSE 117; RESP 16; TEMP 36.3; O2SAT 98
[2025-01-16] MEDS: Nicotine 21 MG PATCH.TD24 TRANSDERMA (11:50)
[2025-01-16 20:28] VITALS: BP 131/63; PULSE 84; RESP 16; TEMP 36.8; O2SAT 97
[2025-01-16 21:10] LABS: Glucose, Whole Blood 99 mg/dL (60-115)
[2025-01-16] MEDS: TRAZODONE HCL 250 MG PO (21:22)
--- NOTE | 2025-01-16 23:00 | P.PNPSI_ITS ---
Subjective Subjective Date of Service: 01/16/25 Reason For Visit: crisis Subjective Notes: Conditional Voluntary Healthcare Proxy: No Guardianship: No Medical Problems Affecting Mental Status: No Interim History: Medical record and nursing notes reviewed; case discussed during rounds with team/nursing staff, and met with patient for supportive therapy/psychoeducation, as well as medication management. Slept for 7 hours, was medication compliant, poor anxious and depressed due to missing her daughter who is in [place]. Her phone was broken and since then she was not able to contact her daughter who is 14 years old. She is homeless, and can not take her here. Reports some nauseous from control on her lap which placed not long ago. Reports Zofran was helpful, feeling much better today no panic. She reports tingling feeling on her left to last fingers with nursing. However she did not address it with this provider. She question if she can have clonazepam when she talks to her daughter as she was given 4 times a month to calm herself down when she talks to her daughter. Chart reviewed, Emilee is available. Reports hearing voices and seeing shadows at night. No command in nature. Feeling physically sick . She is visible, social appropriately with peers and staff. No behavior issues Medication Compliance: Yes Side effects from medications: No Attending Groups: Yes Review of Systems Acute medical concerns: No Medical Review of Systems: unchanged Review of Systems Review of Systems Constitutional: Denies fatigue and Denies fever(s) Cardiovascular: Denies chest pain and Denies dyspnea Respiratory: Denies dyspnea Gastrointestinal: Denies abdominal pain Psychiatric: denies suicidal ideation Endocrine: Denies fatigue Yes all other systems are reviewed and are negative Mental Status Exam Mental Status Exam Narrative: Pt is alert and oriented; behavior is cooperative and calm; dressed in casual attire; mood is described as much better ; no panic attack , eye contact appropriate; Speech is normal rate, volume and not pressured; thought process is organized; Thought content is on tx; denies SI/HI/. Report hearing someone calling me and seeing shadow in the evening. Diagnostics Vital Signs (24Hr): Vital Signs - 24 hr 01/16/25 07:44 01/16/25 20:28 Temperature 97.3 F 98.2 F Pulse Rate 117 H 84 Respiratory Rate 16 16 Blood Pressure 138/76 131/63 Pulse Oximetry 98 97 Oxygen Delivery Method Room Air Room Air BMI result Body Mass Index 31.7 Labs 01/14/25 07:49 01/15/25 08:11 Labs: Laboratory Results - last 48 hr 01/15/25 01/15/25 01/15/25 08:11 13:04 20:34 Sodium 141 Potassium 3.3 Chloride 106 Carbon Dioxide 23 Anion Gap 15 BUN 15 Creatinine 0.93 Estim Creat Clear Calc 101.9 Estimated GFR > 60 POC Glucose 110 Random Glucose 100 Estimat Average Glucose 111 Hemoglobin A1c % 5.5 Calcium 9.2 Total Bilirubin 0.8 AST 25 ALT 32 H Alkaline Phosphatase 84 Total Protein 8.8 H Albumin 4.7 Triglycerides 184 H Cholesterol 286 H LDL Cholesterol, Calc 225 H HDL Cholesterol 25 L Influenza Type A (PCR) NEGATIVE Influenza Type B (PCR) NEGATIVE RSV RNA Qual (PCR) NEGATIVE SARS-CoV-2 RNA (RT-PCR) NEGATIVE 01/16/25 01/16/25 07:34 21:03 Sodium Potassium Chloride Carbon Dioxide Anion Gap BUN Creatinine Estim Creat Clear Calc Estimated GFR POC Glucose 99 99 Random Glucose Estimat Average Glucose Hemoglobin A1c % Calcium Total Bilirubin AST ALT Alkaline Phosphatase Total Protein Albumin Triglycerides Cholesterol LDL Cholesterol, Calc HDL Cholesterol Influenza Type A (PCR) Influenza Type B (PCR) RSV RNA Qual (PCR) SARS-CoV-2 RNA (RT-PCR) Medications Medications Current Medications Acetaminophen (Acetaminophen 325 Mg Tablet) 650 mg PO Q6H PRN PRN Reason: Headache/Pain, Scale 1-10 Al Hydroxide/Mg Hydroxide (Magnesium Hydrox/Alum Hydrox 30 Ml Oral.Susp) 30 ml PO Q6H PRN PRN Reason: Heartburn/Nausea Last Admin: 01/14/25 16:00 Dose: 30 ml Benzocaine (Throat Lozenge, Medicated Lozenge) 1 lozenge MUCOUS MEM Q2H PRN PRN Reason: Sore Throat Last Admin: 01/16/25 21:19 Dose: 1 lozenge Benztropine Mesylate (Benztropine Mesylate 0.5 Mg Tablet) 0.5 mg PO BID [facility] Last Admin: 01/16/25 21:20 Dose: 0.5 mg Clonazepam (Clonazepam 1 Mg Tablet) 2 mg PO DAILY PRN PRN Reason: Anxiety Fluticasone Propionate (Fluticasone Propionate 250 Mcg Blst.W.Dev) 1 puff INHALE RBID SERENA Gabapentin (Gabapentin 100 Mg Capsule) 100 mg PO TID [facility] Last Admin: 01/16/25 21:20 Dose: 100 mg Hydroxyzine HCl (Hydroxyzine Hcl 50 Mg Tablet) 100 mg PO TID PRN PRN Reason: Anxiety Last Admin: 01/16/25 21:21 Dose: 100 mg Magnesium Hydroxide (Milk Of Magnesia 30 Ml Oral.Susp) 30 ml PO DAILY PRN PRN Reason: Constipation Metformin HCl (Metformin Hcl 500 Mg Tablet) 500 mg PO BEDTIME [facility] Last Admin: 01/16/25 21:20 Dose: 500 mg Nicotine (Nicotine 21 Mg Patch.Td24) 21 mg TRANSDERMA DAILY [facility] Last Admin: 01/16/25 11:50 Dose: 21 mg Nicotine Polacrilex (Nicotine Polacrilex 2 Mg Gum) 4 mg BUCCAL Q2H PRN PRN Reason: Nicotine Cravings Olanzapine (Olanzapine 10 Mg Tablet) 30 mg PO BEDTIME [facility] Last Admin: 01/16/25 21:21 Dose: 30 mg Omeprazole (Omeprazole 20 Mg Capsule.Dr) 20 mg PO BID@0630,1630 [facility] Last Admin: 01/16/25 15:58 Dose: 20 mg Ondansetron HCl (Ondansetron Odt 8 Mg Tab.Rapdis) 8 mg TRANSLINGU Q12H PRN PRN Reason: nausea/vomiting Last Admin: 01/15/25 07:22 Dose: 8 mg Prazosin HCl (Prazosin Hcl 1 Mg Capsule) 4 mg PO BEDTIME [facility]; Protocol Last Admin: 01/16/25 21:19 Dose: 4 mg Quetiapine Fumarate (Quetiapine Fumarate 100 Mg Tablet) 100 mg PO TID PRN PRN Reason: Anxiety Last Admin: 01/16/25 21:20 Dose: 100 mg Sertraline HCl (Sertraline Hcl 100 Mg Tablet) 200 mg PO DAILY [facility] Last Admin: 01/16/25 08:39 Dose: 200 mg Trazodone HCl 200 mg/ (Trazodone HCl 50 mg) 250 mg PO BEDTIME [facility] Last Admin: 01/16/25 21:22 Dose: 250 mg Allergies Allergies Allergy/AdvReac Type Severity Reaction Status Date / Time almond Allergy Severe Anaphylaxis Verified 01/14/25 07:18 Penicillins Allergy Severe Anaphylaxis Verified 01/14/25 07:18 shrimp Allergy Severe Anaphylaxis Verified 01/14/25 07:18 peanuts Allergy Severe Anaphylaxis Uncoded 01/14/25 07:18 Assessment & Plan Assessment & Plan (1) Major depression with psychotic features: Status: Acute Code(s): F32.3 - Major depressive disorder, single episode, severe with psychotic features (2) DAVE (generalized anxiety disorder): Status: Acute Code(s): F41.1 - Generalized anxiety disorder (3) PTSD (post-traumatic stress disorder): Status: Acute Code(s): F43.10 - Post-traumatic stress disorder, unspecified (4) Polysubstance abuse: Status: Acute Code(s): F19.10 - Other psychoactive substance abuse, uncomplicated Plan Patient is a 39-year-old female with history of MDD, PTSD and cocaine use disorder who presented to [facility] via ambulance due to suicidal ideation secondary to increased depression and anxiety. Plan: CV 15 minute safety checks Continue home medications obtain collateral encourage groups discharge planning 01/15: Active on unit. social with peers. attending groups. Pt reports feeling tired but anxious today. Feels she may be getting a cold. Ordered COVID test. denies SI/HI/VH/AH. Continue current tx plan. 01/16/25: Slept for 7 hours, was medication compliant, poor anxious and depressed due to missing her daughter who is in [place]. Her phone was broken and since then she was not able to contact her daughter who is 14 years old. She is homeless, and can not take her here. Reports some nauseous from control on her lap which placed not long ago. Reports Zofran was helpful, feeling much better today no panic. She reports tingling feeling on her left to last fingers with nursing. However she did not address it with this provider. She question if she can have clonazepam when she talks to her daughter as she was given 4 times a month to calm herself down when she talks to her daughter. Chart reviewed, Klonopin is available. Reports hearing voices and seeing shadows at night. No command in nature. Feeling physically sick . She is visible, social appropriately with peers and staff. No behavior issues Patient educated on: diagnosis, medication risk/benefits, substance abuse and therapeutic strategies Informed Consent: understands Reason for continued inpatient stay Substantial Risk for: med/psych decompensation Time Spent With Patient Time: Total time managing care of this patient today ____ minutes.
[2025-01-17] MEDS: Throat Lozenge, Medicated LOZENGE 1 LOZENGE MUCOUS MEM (06:31)
[2025-01-17 07:54] LABS: Glucose, Whole Blood 100 mg/dL (60-115)
[2025-01-17 08:00] VITALS: BP 123/80; PULSE 100; RESP 18; TEMP 36.9; O2SAT 97
[2025-01-17] MEDS: Nicotine 21 MG PATCH.TD24 TRANSDERMA (08:17)
[2025-01-17 19:25] VITALS: BP 119/78; PULSE 86; RESP 16; TEMP 36.8; O2SAT 100
[2025-01-17 21:13] VITALS: BP 119/78
[2025-01-17] MEDS: TRAZODONE HCL 250 MG PO (21:13)
--- NOTE | 2025-01-17 21:27 | P.PNPSI_ITS ---
Subjective Subjective Date of Service: 01/17/25 Reason For Visit: crisis Subjective Notes: Conditional Voluntary Healthcare Proxy: No Guardianship: No Medical Problems Affecting Mental Status: No Interim History: Medical record and nursing notes reviewed; case discussed during rounds with team/nursing staff, and met with patient for supportive therapy/psychoeducation, as well as medication management. Patient slept well, was medication compliant. Denies side effects. Reports nightmare/flashback. Reports feeling sad and down today. Also reports back pain and incontinence sometimes and can not make it fast enough to the bathroom and this is her 3th time lately. Deny voices or shadow Denies other safety concerns. Visible, social appropriately, and attended groups. Appeared to be sad/depressed. She is worry about that she have to be discharged on Saturday. She is receptive to the plan of having prazosin increased. Remind patient that she has Klonopin as needed. We will start the Flexeril for back pain/spasm. Medication Compliance: Yes Side effects from medications: No Attending Groups: Yes Review of Systems Acute medical concerns: No Medical Review of Systems: unchanged Review of Systems Review of Systems Constitutional: Denies fatigue and Denies fever(s) Cardiovascular: Denies chest pain and Denies dyspnea Respiratory: Denies dyspnea Gastrointestinal: Denies abdominal pain Psychiatric: denies suicidal ideation Endocrine: Denies fatigue Yes all other systems are reviewed and are negative Mental Status Exam Mental Status Exam Narrative: Pt is alert and oriented; behavior is cooperative and calm; dressed in casual attire; mood is described as sad and feeling down ,, eye contact appropriate; Speech is normal rate, volume and not pressured; thought process is organized; Thought content is on tx; denies SI/HI/AVH but report nightmare Diagnostics Vital Signs (24Hr): Vital Signs - 24 hr 01/17/25 08:00 Temperature 98.4 F Pulse Rate 100 Respiratory Rate 18 Blood Pressure 123/80 Pulse Oximetry 97 Oxygen Delivery Method Room Air BMI result Body Mass Index 31.7 Labs 01/14/25 07:49 01/15/25 08:11 Labs: Laboratory Results - last 48 hr 01/16/25 01/16/25 01/17/25 07:34 21:03 07:50 POC Glucose 99 99 100 Medications Medications Current Medications Acetaminophen (Acetaminophen 325 Mg Tablet) 650 mg PO Q6H PRN PRN Reason: Headache/Pain, Scale 1-10 Last Admin: 01/17/25 11:45 Dose: 650 mg Al Hydroxide/Mg Hydroxide (Magnesium Hydrox/Alum Hydrox 30 Ml Oral.Susp) 30 ml PO Q6H PRN PRN Reason: Heartburn/Nausea Last Admin: 01/14/25 16:00 Dose: 30 ml Benzocaine (Throat Lozenge, Medicated Lozenge) 1 lozenge MUCOUS MEM Q2H PRN PRN Reason: Sore Throat Last Admin: 01/17/25 06:31 Dose: 1 lozenge Benztropine Mesylate (Benztropine Mesylate 0.5 Mg Tablet) 0.5 mg PO BID [facility] Last Admin: 01/17/25 08:17 Dose: 0.5 mg Clonazepam (Clonazepam 1 Mg Tablet) 2 mg PO DAILY PRN PRN Reason: Anxiety Last Admin: 01/17/25 13:02 Dose: 2 mg Cyclobenzaprine HCl (Cyclobenzaprine Hcl 5 Mg Tablet) 5 mg PO TID PRN PRN Reason: Muscle Spasm Last Admin: 01/17/25 16:11 Dose: 5 mg Fluticasone Propionate (Fluticasone Propionate 250 Mcg Blst.W.Dev) 1 puff INHALE ID [facility] Gabapentin (Gabapentin 100 Mg Capsule) 100 mg PO TID [facility] Last Admin: 01/17/25 15:10 Dose: 100 mg Hydroxyzine HCl (Hydroxyzine Hcl 50 Mg Tablet) 100 mg PO TID PRN PRN Reason: Anxiety Last Admin: 01/16/25 21:21 Dose: 100 mg Magnesium Hydroxide (Milk Of Magnesia 30 Ml Oral.Susp) 30 ml PO DAILY PRN PRN Reason: Constipation Metformin HCl (Metformin Hcl 500 Mg Tablet) 500 mg PO BEDTIME [facility] Last Admin: 01/16/25 21:20 Dose: 500 mg Nicotine (Nicotine 21 Mg Patch.Td24) 21 mg TRANSDERMA DAILY [facility] Last Admin: 01/17/25 08:17 Dose: 21 mg Nicotine Polacrilex (Nicotine Polacrilex 2 Mg Gum) 4 mg BUCCAL Q2H PRN PRN Reason: Nicotine Cravings Olanzapine (Olanzapine 10 Mg Tablet) 30 mg PO BEDTIME [facility] Last Admin: 01/16/25 21:21 Dose: 30 mg Omeprazole (Omeprazole 20 Mg Capsule.Dr) 20 mg PO BID@0630,1630 [facility] Last Admin: 01/17/25 16:12 Dose: 20 mg Ondansetron HCl (Ondansetron Odt 8 Mg Tab.Rapdis) 8 mg TRANSLINGU Q12H PRN PRN Reason: nausea/vomiting Last Admin: 01/15/25 07:22 Dose: 8 mg Prazosin HCl (Prazosin Hcl 5 Mg Capsule) 5 mg PO BEDTIME [facility]; Protocol Quetiapine Fumarate (Quetiapine Fumarate 100 Mg Tablet) 100 mg PO TID PRN PRN Reason: Anxiety Last Admin: 01/17/25 08:29 Dose: 100 mg Sertraline HCl (Sertraline Hcl 100 Mg Tablet) 200 mg PO DAILY [facility] Last Admin: 01/17/25 08:16 Dose: 200 mg Trazodone HCl 200 mg/ (Trazodone HCl 50 mg) 250 mg PO BEDTIME [facility] Last Admin: 01/16/25 21:22 Dose: 250 mg Allergies Allergies Allergy/AdvReac Type Severity Reaction Status Date / Time almond Allergy Severe Anaphylaxis Verified 01/14/25 07:18 Penicillins Allergy Severe Anaphylaxis Verified 01/14/25 07:18 shrimp Allergy Severe Anaphylaxis Verified 01/14/25 07:18 peanuts Allergy Severe Anaphylaxis Uncoded 01/14/25 07:18 Assessment & Plan Assessment & Plan (1) Major depression with psychotic features: Status: Acute Code(s): F32.3 - Major depressive disorder, single episode, severe with psychotic features (2) DAVE (generalized anxiety disorder): Status: Acute Code(s): F41.1 - Generalized anxiety disorder (3) PTSD (post-traumatic stress disorder): Status: Acute Code(s): F43.10 - Post-traumatic stress disorder, unspecified (4) Polysubstance abuse: Status: Acute Code(s): F19.10 - Other psychoactive substance abuse, uncomplicated Plan Patient is a 39-year-old female with history of MDD, PTSD and cocaine use disorder who presented to [facility] via ambulance due to suicidal ideation secondary to increased depression and anxiety. Plan: CV 15 minute safety checks Continue home medications obtain collateral encourage groups discharge planning 01/15: Active on unit. social with peers. attending groups. Pt reports feeling tired but anxious today. Feels she may be getting a cold. Ordered COVID test. denies SI/HI/VH/AH. Continue current tx plan. 01/16/25: Slept for 7 hours, was medication compliant, poor anxious and depressed due to missing her daughter who is in [place]. Her phone was broken and since then she was not able to contact her daughter who is 14 years old. She is homeless, and can not take her here. Reports some nauseous from control on her lap which placed not long ago. Reports Zofran was helpful, feeling much better today no panic. She reports tingling feeling on her left to last fingers with nursing. However she did not address it with this provider. She question if she can have clonazepam when she talks to her daughter as she was given 4 times a month to calm herself down when she talks to her daughter. Chart reviewed, Klonopin is available. Reports hearing voices and seeing shadows at night. No command in nature. Feeling physically sick . She is visible, social appropriately with peers and staff. No behavior issues. 01/17/25: Patient slept well, was medication compliant. Denies side effects. Reports nightmare/flashback. Reports feeling sad and down today. Also reports back pain and incontinence sometimes and can not make it fast enough to the bathroom and this is her 3th time lately. Deny voices or shadow Denies other safety concerns. Visible, social appropriately, and attended groups. Appeared to be sad/depressed. She is worry about that she have to be discharged on Saturday. She is receptive to the plan of having prazosin increased. Remind patient that she has Klonopin as needed. We will start the Flexeril for back pain/spasm. Increase prazosin up to 5 mg at bedtime for nightmare. Started Flexeril 5 mg t.i.d. p.r.n. for muscle spasm. Patient educated on: diagnosis, medication risk/benefits and therapeutic strategies Informed Consent: understands Reason for continued inpatient stay Substantial Risk for: med/psych decompensation Time Spent With Patient Time: Total time managing care of this patient today ____ minutes.
[2025-01-17 21:44] LABS: Glucose, Whole Blood 106 mg/dL (60-115)
[2025-01-18 07:50] LABS: Glucose, Whole Blood 109 mg/dL (60-115)
[2025-01-18 08:00] VITALS: BP 138/88; PULSE 105; RESP 18; TEMP 36.5; O2SAT 99
[2025-01-18] MEDS: Nicotine 21 MG PATCH.TD24 TRANSDERMA (08:07)
[2025-01-18] MEDS: Throat Lozenge, Medicated LOZENGE 1 LOZENGE MUCOUS MEM (08:27)
--- NOTE | 2025-01-18 10:26 | HO.PSYCHPN ---
Subjective Subjective Date of Service: 01/18/25 Reason For Visit: crisis Subjective Notes: Conditional Voluntary Interim History: Active on unit. social with peers. attending groups. Pt reports feeling better than admission. denies SI/HI/VH/AH. Pt reports she plans on [facility] and following up with outpatient providers. plan to discharge tomorrow; pt aware. Medication Compliance: Yes Side effects from medications: No Attending Groups: Yes Mental Status Exam Mental Status Exam Narrative: Pt is alert and oriented; behavior is cooperative and calm; dressed in casual attire; mood is described as good ; eye contact appropriate; Speech is normal rate, volume and not pressured; thought process is organized; Thought content is on discharge; denies SI/HI/VH/AH. Diagnostics Vital Signs (24Hr): Vital Signs - 24 hr 01/17/25 19:25 01/17/25 21:13 01/18/25 08:00 Temperature 98.2 F 97.7 F Pulse Rate 86 105 H Respiratory Rate 16 18 Blood Pressure 119/78 119/78 138/88 Pulse Oximetry 100 99 Oxygen Delivery Method Room Air Room Air BMI result Body Mass Index 31.7 Labs 01/14/25 07:49 01/15/25 08:11 Labs: Laboratory Results - last 48 hr 01/16/25 01/17/25 01/17/25 21:03 07:50 21:38 POC Glucose 99 100 106 01/18/25 07:39 POC Glucose 109 Medications Medications Current Medications Acetaminophen (Acetaminophen 325 Mg Tablet) 650 mg PO Q6H PRN PRN Reason: Headache/Pain, Scale 1-10 Last Admin: 01/17/25 11:45 Dose: 650 mg Al Hydroxide/Mg Hydroxide (Magnesium Hydrox/Alum Hydrox 30 Ml Oral.Susp) 30 ml PO Q6H PRN PRN Reason: Heartburn/Nausea Last Admin: 01/14/25 16:00 Dose: 30 ml Benzocaine (Throat Lozenge, Medicated Lozenge) 1 lozenge MUCOUS MEM Q2H PRN PRN Reason: Sore Throat Last Admin: 01/18/25 08:27 Dose: 1 lozenge Benztropine Mesylate (Benztropine Mesylate 0.5 Mg Tablet) 0.5 mg PO BID SERENA Last Admin: 01/18/25 08:07 Dose: 0.5 mg Clonazepam (Clonazepam 1 Mg Tablet) 2 mg PO DAILY PRN PRN Reason: Anxiety Last Admin: 01/17/25 13:02 Dose: 2 mg Cyclobenzaprine HCl (Cyclobenzaprine Hcl 5 Mg Tablet) 5 mg PO TID PRN PRN Reason: Muscle Spasm Last Admin: 01/18/25 08:27 Dose: 5 mg Fluticasone Propionate (Fluticasone Propionate 250 Mcg Blst.W.Dev) 1 puff INHALE RBID SERENA Gabapentin (Gabapentin 100 Mg Capsule) 100 mg PO TID [facility] Last Admin: 01/18/25 08:07 Dose: 100 mg Hydroxyzine HCl (Hydroxyzine Hcl 50 Mg Tablet) 100 mg PO TID PRN PRN Reason: Anxiety Last Admin: 01/17/25 21:25 Dose: 100 mg Magnesium Hydroxide (Milk Of Magnesia 30 Ml Oral.Susp) 30 ml PO DAILY PRN PRN Reason: Constipation Metformin HCl (Metformin Hcl 500 Mg Tablet) 500 mg PO BEDTIME [facility] Last Admin: 01/17/25 21:13 Dose: 500 mg Nicotine (Nicotine 21 Mg Patch.Td24) 21 mg TRANSDERMA DAILY [facility] Last Admin: 01/18/25 08:07 Dose: 21 mg Nicotine Polacrilex (Nicotine Polacrilex 2 Mg Gum) 4 mg BUCCAL Q2H PRN PRN Reason: Nicotine Cravings Olanzapine (Olanzapine 10 Mg Tablet) 30 mg PO BEDTIME [facility] Last Admin: 01/17/25 21:14 Dose: 30 mg Omeprazole (Omeprazole 20 Mg Capsule.Dr) 20 mg PO BID@0630,1630 [facility] Last Admin: 01/18/25 06:56 Dose: 20 mg Ondansetron HCl (Ondansetron Odt 8 Mg Tab.Rapdis) 8 mg TRANSLINGU Q12H PRN PRN Reason: nausea/vomiting Last Admin: 01/18/25 09:39 Dose: 8 mg Prazosin HCl (Prazosin Hcl 5 Mg Capsule) 5 mg PO BEDTIME [facility]; Protocol Last Admin: 01/17/25 21:13 Dose: 5 mg Quetiapine Fumarate (Quetiapine Fumarate 100 Mg Tablet) 100 mg PO TID PRN PRN Reason: Anxiety Last Admin: 01/18/25 08:27 Dose: 100 mg Sertraline HCl (Sertraline Hcl 100 Mg Tablet) 200 mg PO DAILY [facility] Last Admin: 01/18/25 08:06 Dose: 200 mg Trazodone HCl 200 mg/ (Trazodone HCl 50 mg) 250 mg PO BEDTIME SERENA Last Admin: 01/17/25 21:13 Dose: 250 mg Allergies Allergies Allergy/AdvReac Type Severity Reaction Status Date / Time almond Allergy Severe Anaphylaxis Verified 01/14/25 07:18 Penicillins Allergy Severe Anaphylaxis Verified 01/14/25 07:18 shrimp Allergy Severe Anaphylaxis Verified 01/14/25 07:18 peanuts Allergy Severe Anaphylaxis Uncoded 01/14/25 07:18 Assessment & Plan Assessment & Plan (1) Major depression with psychotic features: Status: Acute Code(s): F32.3 - Major depressive disorder, single episode, severe with psychotic features (2) DAVE (generalized anxiety disorder): Status: Acute Code(s): F41.1 - Generalized anxiety disorder (3) PTSD (post-traumatic stress disorder): Status: Acute Code(s): F43.10 - Post-traumatic stress disorder, unspecified (4) Polysubstance abuse: Status: Acute Code(s): F19.10 - Other psychoactive substance abuse, uncomplicated Plan Patient is a 39-year-old female with history of MDD, PTSD and cocaine use disorder who presented [place] [facility] [place] due to suicidal ideation secondary to increased depression and anxiety. Plan: CV 15 minute safety checks Continue home medications obtain collateral encourage groups discharge planning 01/15: Active on unit. social with peers. attending groups. Pt reports feeling tired but anxious today. Feels she may be getting a cold. Ordered COVID test. denies SI/HI/VH/AH. Continue current tx plan. 01/16/25: Slept for 7 hours, was medication compliant, poor anxious and depressed due to missing her daughter who is in [place]. Her phone was broken and since then she was not able to contact her daughter who is 14 years old. She is homeless, and can not take her here. Reports some nauseous from control on her lap which placed not long ago. Reports Zofran was helpful, feeling much better today no panic. She reports tingling feeling on her left to last fingers with nursing. However she did not address it with this provider. She question if she can have clonazepam when she talks to her daughter as she was given 4 times a month to calm herself down when she talks to her daughter. Chart reviewed, [place] is available. Reports hearing voices and seeing shadows at night. No command in nature. Feeling physically sick . She is visible, social appropriately with peers and staff. No behavior issues. 01/17/25: Patient slept well, was medication compliant. Denies side effects. Reports nightmare/flashback. Reports feeling sad and down today. Also reports back pain and incontinence sometimes and can not make it fast enough to the bathroom and this is her 3th time lately. Deny voices or shadow Denies other safety concerns. Visible, social appropriately, and attended groups. Appeared to be sad/depressed. She is worry about that she have to be discharged on Saturday. She is receptive to the plan of having prazosin increased. Remind patient that she has Klonopin as needed. We will start the Flexeril for back pain/spasm. Increase prazosin up to 5 mg at bedtime for nightmare. Started Flexeril 5 mg t.i.d. p.r.n. for muscle spasm. 01/18: Active on unit. social with peers. attending groups. Pt reports feeling better than admission. denies SI/HI/VH/AH. Pt reports she plans on returning to [facility] and following up with outpatient providers. plan to discharge tomorrow; pt aware. Patient educated on: diagnosis and medication risk/benefits Reason for continued inpatient stay Substantial Risk for: stable for discharge Time Spent With Patient Time: Total time managing care of this patient today _20___ minutes.
[2025-01-18 20:00] VITALS: BP 119/59; PULSE 100; RESP 18; TEMP 37.1; O2SAT 99
[2025-01-18] MEDS: TRAZODONE HCL 250 MG PO (20:23)
[2025-01-19 07:46] LABS: Glucose, Whole Blood 113 mg/dL (60-115)
[2025-01-19 07:52] VITALS: BP 128/71; PULSE 94; RESP 16; TEMP 36.8; O2SAT 97
[2025-01-19] MEDS: Nicotine 21 MG PATCH.TD24 TRANSDERMA (08:27)
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
[2025-01-19] MEDS: Naloxone HCl Nasal TAKE HOME 4 MG SPRAY 8 MG NOSTRILALT (10:07)
== END 2025-01-19 10:40 | disposition home or self-care (01) | DRG 751 ==
LOC: HO.ED 13:29 → HO.PADLT16 13:31
PROVIDERS: Admitting Provider Registered Nurse; Emergency Provider Emergency Medicine; Responsible Provider Registered Nurse; Visit Provider Psychiatry & Neurology Psychiatry
DX: F32.3 Major depressive disorder, single episode, severe with psychotic features (principal); F14.10 Cocaine abuse, uncomplicated; F17.210 Nicotine dependence, cigarettes, uncomplicated; Z71.6 Tobacco abuse counseling; F41.1 Generalized anxiety disorder; F43.10 Post-traumatic stress disorder, unspecified; F19.10 Other psychoactive substance abuse, uncomplicated; Z59.01 Sheltered homelessness; Z20.822 Contact with and (suspected) exposure to COVID-19; Z79.51 Long term (current) use of inhaled steroids; Z79.84 Long term (current) use of oral hypoglycemic drugs; Z79.899 Other long term (current) drug therapy
CPT/HCPCS: 36415; 80053; 80061; 80143; 80179; 80307; 81001; 81025; 82947; 83036; 85025; 87086; 87637; 93005; 99285; S9485

== ENCOUNTER → 2025-01-14 10:47 | Outpatient (BNV) | payer MEDICAID, SELFPAY | PROVIDERS: Admitting Provider Registered Nurse; Emergency Provider Emergency Medicine; Visit Provider Internal Medicine Cardiovascular Disease | DX: Z13.6 Encounter for screening for cardiovascular disorders (principal) | CPT/HCPCS: 93010 ==

== ENCOUNTER → 2025-01-14 12:40 | Outpatient (BNV) | payer OTHER, SELFPAY | PROVIDERS: Admitting Provider Registered Nurse; Emergency Provider Emergency Medicine; Responsible Provider Registered Nurse; Visit Provider Registered Nurse | DX: F32.3 Major depressive disorder, single episode, severe with psychotic features (principal); F19.10 Other psychoactive substance abuse, uncomplicated; F41.1 Generalized anxiety disorder; F43.11 Post-traumatic stress disorder, acute | CPT/HCPCS: 99231; 99232; 99233 ==

== ENCOUNTER 2025-04-14 15:33 | Inpatient (IN) | payer OTHER, SELFPAY ==
[2025-04-14] VITALS (8 sets, daily range): BP systolic 105–124; BP diastolic 53–62; PULSE 72–84; RESP 14–18; TEMP 36.3–36.6; O2SAT 95–99; BMI 30.4
--- NOTE | 2025-04-14 16:15 | PC.NURSE ---
Kymberly presents to the ER today reporting suicidal ideation with a plan to walk into traffic, she also endorses command auditory hallucinations telling her to walk into traffic. Patient is calm and cooperative, offering no complaints to this RN at this time. pt is aware of plan of care for CARE team emiliana
[2025-04-14 16:46] LABS: MANUAL DIFF FLAG NO
[2025-04-14 16:48] LABS: Hematocrit 35.7 % (37.0-47.0); Hemoglobin 11.3 g/dl (12.0-16.0); Imm Gran Abs Auto 0.05 X10*3/uL (0.00-0.03); Imm Gran Pct Auto 0.4 % (0.0-0.4); Lymphocytes Absolute Auto 3.4 X10*3/uL (1.2-4.9); Mean Corpuscular HGB Conc 31.7 g/dl (31.0-35.0); Mean Corpuscular Hemoglobin 23.7 pg (27.0-33.0); Mean Corpuscular Volume 74.8 fL (80.0-98.0); NRBC Abs Auto 0.000 X10*3/uL (0.0-0.012); NRBC Pct Auto 0.0 /100WBC (0.0-0.2); Platelet Count 378 X10*3/uL (160-400); Red Blood Count 4.77 X10*6/uL (4.20-5.50); White Blood Count 11.5 X10*3/uL (4.8-10.8)
[2025-04-14 16:51] LABS: Appearance Urine Cloudy; Glucose Urine UA Negative (Negative); PH 7.0 (5.0-9.0); Specific Gravity - Urine 1.025 (1.005-1.025); UMIC TRIGGER UACC YES
[2025-04-14 16:53] LABS: UPreg QC Valid YES
[2025-04-14 16:58] LABS: Cannabinoid Screen Urine POSITIVE (Not Detect)
[2025-04-14 17:01] LABS: Alanine Aminotransferase 31 U/L (0-31); Albumin Level 4.3 g/dL (3.5-5.0); Alkaline Phosphatase 84 U/L (39-117); Anion Gap 10 (12-20); Aspartate Amino Transferase 22 U/L (5-31); Blood Urea Nitrogen 13 mg/dL (9-16); Calcium 9.0 mg/dL (8.4-10.2); Carbon Dioxide 26 mmol/L (22-29); Chloride 108 mmol/L (96-108); Creatinine Clr Calc Pharmacy 102.1; Estimated Glomerular Filt Rate > 60; Potassium 3.7 mmol/L (3.3-5.1); Sodium 140 mmol/L (135-145); Total Protein 7.4 g/dL (6.5-8.0)
[2025-04-14 17:05] LABS: UACC Culture Trigger YES
--- NOTE | 2025-04-14 17:56 | ED_ITS ---
HPI - Psych General Chief Complaint: Psychiatric Symptoms Stated Complaint: coming homeless retirement, sec 12, SI with plan Time Seen by Provider: 04/14/25 16:46 Source: patient and RN notes reviewed Mode of arrival: ambulatory Limitations: no limitations History of Present Illness ED Provider: Tiesha Jimenez PA-C HPI Narrative: This is a 39-year-old female who presents emergency department with concerns of suicidal ideation. Patient reports that she has had increased stressors surrounding her family as well as the homeless retirement. She states that over the last 3-4 days she has had more thoughts of harming herself, and has thoughts of ending her life with a plan to walk into traffic. She also reports that she has been hearing voices commanding her to harm herself. She also states that she has been seeing shadows in the homeless retirement, states that the shower was follow her and make her feel as though she is not safe. She does report some urinary frequency and dysuria - this occurred several days ago, states that her symptoms have improved. She denies any fevers, chills, chest pain, shortness for breath, abdominal pain, nausea, vomiting or diarrhea. Denies any alcohol or drug use. No other complaints or concerns at this time. MD complaint: suicidal ideation, feels depressed and hallucinations Onset (ago): day(s) Duration: constant History of same: Yes Relieving factors: none Exacerbating factors: none Associated psychiatric symptoms: depression, suicidal ideation, auditory hallucinations and visual hallucinations Associated symptoms: denies other symptoms Treatments prior to arrival: none If self harm: admits thoughts of self harm and has plan Details of plan: Walk-in front of traffic Related Data Home Medications ?Medication ?Instructions ?Recorded ?Confirmed clonidine HCl 0.1 mg tablet 0.1 mg PO BID anxiety 03/1804/14/25 docusate sodium 100 mg capsule 100 mg PO BID 04/14/25 04/14/25 prazosin 2 mg capsule 6 mg PO BEDTIME nightmares 1 04/14/25 Previous Rx's ?Medication ?Instructions ?Recorded benztropine 0.5 mg tablet 0.5 mg PO BID 30 days #60 ta bs 01/18/25 fluticasone furoate 200 1 inh inhalation DAILY 30 da ys #30 01/18/25 mcg/actuation blister powder for ea inhalation (Arnuity Ellipta) gabapentin 100 mg capsule 100 mg PO TID depressive dis order 01/18/25 7 days #21 caps metformin 500 mg tablet 500 mg PO BEDTIME 30 days #3 0 tabs 01/18/25 olanzapine 10 mg tablet 30 mg (3 x 10 mg) PO BEDTIME 30 01/18/25 days #90 tabs omeprazole 20 mg capsule,delayed 20 mg PO BID@0630,163 0 30 days #60 01/18/25 release caps quetiapine 100 mg tablet 100 mg PO TID PRN anxiety 30 days 01/18/25 #90 tabs sertraline 100 mg tablet 200 mg (2 x 100 mg) PO DAILY 30 01/18/25 days #60 tabs trazodone 100 mg tablet 250 mg (2.5 x 100 mg) PO BED TIME 01/18/25 30 days #75 tabs hydroxyzine HCl 50 mg tablet 100 mg (2 x 50 mg) PO BID PRN 04/19/25 Anxiety 14 days #56 tabs prazosin 1 mg capsule 7 mg (7 x 1 mg) PO BEDTIME # 0 caps 04/19/25 Allergies Allergy/AdvReac Type Severity Reaction Status Date / Time almond Allergy Severe Anaphylaxis Verified 04/14/25 15:45 Penicillins Allergy Severe Anaphylaxis Verified 04/14/25 15:45 shrimp Allergy Severe Anaphylaxis Verified 04/14/25 15:45 peanuts Allergy Severe Anaphylaxis Uncoded 04/14/25 15:45 Review of Systems 2 Review of Systems: Constitutional : No Fever, No Chills ENT/Mouth : No sore throat, No Rhinorrhea Eyes: No Eye Pain, No Swelling, No Redness Cardiovascular : No Chest Pain, No SOB Respiratory : No Cough, No Sputum Gastrointestinal : No Nausea, No Vomiting, No Diarrhea, No abdominal Pain Genitourinary : + Dysuria, No Hematuria Musculoskeletal : No joint pain, No Myalgias, No Joint Swelling Skin : No Skin Lesions Neuro : No Weakness, No Numbness, No Headache All other systems reviewed and are negative Yes all other systems are reviewed and are negative Constitutional: Constitutional: Reports as per [facility] Past Medical History Medical History Suicidal ideation Auditory hallucination UTI (urinary tract infection) Suicidal ideation Urinary tract infection Suicidal ideation Substance abuse Bipolar disorder Anxiety Depression Anxiety and depression Nausea & vomiting History of irregular heartbeat Acute posttraumatic stress disorder UTI (urinary tract infection) Asthma exacerbation Surgical History History of surgery Hx of section Social History Social History Household Members: Other Household Members Other:: 32 women in retirement Housing: Other Housing Other:: retirement Do you presently have visiting nurse or other home services: No Alcohol intake: current Alcohol intake frequency: does not drink Patient Tobacco Use Status: Current everyday Tobacco user Tobacco use type: Cigarette Cigarette Packs Per Day: 0.25 Cigarettes Per Day: 1 Years Smoked: 25 e-Cigarette/Vaping Use: Currently Using Second Hand Smoke Exposure: Yes Substance Use Type: Marijuana service: No Sexual orientation: Straight/Heterosexual Physical Exam 2 Vital Signs: Vital Signs: Last Vital Signs Temp 98.1 F 04/20/25 08:34 Pulse 84 04/20/25 08:34 Resp 16 04/20/25 08:34 BP 139/86 04/20/25 08:34 Pulse Ox 99 04/20/25 08:34 O2 Del Method Room Air 04/20/25 08:34 BMI result Body Mass Index 30.4 Const: General: cooperative, comfortable and no acute distress O rientation/consciousness: patient oriented x3 Limitations: no limitations HEENT: Head: Yes normal to inspection, Yes normocephalic and Yes atraumatic Ears: hearing grossly normal bilaterally General nose exam: Normal external nose present Face and sinus: Yes normal facial exam Mouth: Normal oral and palatal mucosa present, oropharynx normal and moist mucous membranes Throat: Yes posterior oropharynx normal Eyes: General: appearance normal, both eyes and all related structures E yelids: Yes eyelids normal Conjunctivae: conjunctivae normal Sclerae: s clerae normal Pupils: Equal, round and reactive pupils present EOM: EOMs intact bilaterally Neck: Neck: Yes normal visual inspection, Yes full ROM and Yes no lymphadenopathy Lymphatic: no lymphadenopathy noted Chest: Chest palpation & inspection: normal inspection of the chest Resp: Effort & Inspection: normal respiratory effort and able to speak in complete sentences Auscultation: clear to auscultation bilaterally, no crackles, no rales, no rhonchi and no wheezes Cardio: Rate: regular rate Rhythm: regular rhythm Heart sounds: S1 normal heart sound present and S2 normal heart sound present GI: Inspection: Yes normal to inspection Skin: General skin exam: no rashes or lesions noted Trauma: no lacerations or abrasions Wounds: no wounds Neuro: General: patient oriented x3 and moves all extremities Cranial nerves: Yes Equal, round and reactive pupils present Extrem: General: Yes normal to inspection Right upper extremity: normal to inspection Left upper extremity: normal to inspection Right lower extremity: normal to inspection Left lower extremity: normal to inspection Course Reevaluation(s) Reevaluation #1: Time: 06:50 Date: 04/15/25 Provider: Marcos Perez MD Patient in physician observation for psychiatric evaluation.? No acute events reported overnight. No current complaints. VS stable.? Patient is in bed search status/pending CARE team evaluation. Will continue to monitor. Time: 14:55 Date: 04/15/25 Provider: Brian Duarte MD Physician observation ended at 14:55 hours.[place] [facility] [place] Medications Administered Discontinued Medications Generic Name Dose Route Start Last Admin Trade Name Freq PRN Reason Stop Dose Admin Acetaminophen 650 mg 04/15/25 14:57 04/19/25 05:50 Acetaminophen 325 Mg Tablet PO 650 mg Q6H PRN Administration Headache/Pain, Scale 1-10 Al Hydroxide/Mg Hydroxide 30 ml 04/15/25 14:57 04/17/25 17:19 Magnesium Hydrox/Alum Hydrox 30 Ml Oral.Susp PO 30 ml Q6H PRN Administration Heartburn/Nausea Benztropine Mesylate 0.5 mg 04/14/25 21:00 04/20/25 08:37 Benztropine Mesylate 0.5 Mg Tablet PO 0.5 mg BID SERENA Administration Clonidine HCl 0.1 mg 04/14/25 21:00 04/20/25 08:35 Clonidine Hcl 0.1 Mg Tablet PO 0.1 mg BID SERENA Administration Protocol Cyproheptadine HCl 4 mg 04/17/25 21:00 04/19/25 20:53 Cyproheptadine Hcl 4 Mg Tablet PO 4 mg BEDTIME SERENA Administration Docusate Sodium 100 mg 04/14/25 21:00 04/20/25 08:36 Docusate Sodium 100 Mg Capsule PO 100 mg BID SERENA Administration Fluticasone Propionate 1 puff 04/14/25 20:00 04/20/25 08:35 Fluticasone Propionate 250 Mcg Blst.W.Dev INHALE 1 puff RBID SERENA Administration Gabapentin 100 mg 04/14/25 21:00 04/20/25 08:36 Gabapentin 100 Mg Capsule PO 100 mg TID SERENA Administration Hydroxyzine HCl 100 mg 04/14/25 17:48 04/17/25 11:19 Hydroxyzine Hcl 50 Mg Tablet PO 100 mg TID PRN Administration Anxiety Hydroxyzine HCl 100 mg 04/17/25 14:51 04/19/25 09:00 Hydroxyzine Hcl 50 Mg Tablet PO 100 mg BID PRN Administration Anxiety Influenza Virus Vaccine 0.5 ml 04/15/25 16:26 04/15/25 20:43 Flu Vacc [id number](6mo Up)/Pf 0.5 Ml Syringe IM 04/15/25 16:27 0.5 ml .ONCE ONE Administration Lidocaine 1 patch 04/18/25 10:00 04/20/25 08:40 Lidocaine 4 % Patch Adh..Patch TRANSDERMA 1 patch DAILY SERENA Administration Protocol Magnesium Hydroxide 30 ml 04/15/25 14:57 04/17/25 20:51 Milk Of Magnesia 30 Ml Oral.Susp PO 30 ml DAILY PRN Administration Constipation Metformin HCl 500 mg 04/14/25 21:00 04/19/25 20:56 Metformin Hcl 500 Mg Tablet PO 500 mg BEDTIME SERENA Administration Naloxone HCl 8 mg 04/20/25 08:00 04/20/25 09:34 Naloxone Hcl Nasal Take Home 4 Mg [place] NOSTRILALT 04/20/25 08:01 8 mg ONCE ONE Administration Nicotine 21 mg 04/16/25 09:00 04/20/25 08:38 Nicotine 21 Mg Patch.Td24 TRANSDERMA 21 mg DAILY SERENA Administration Nitrofurantoin Macrocrystals 100 mg 04/14/25 21:00 04/18/25 20:20 Nitrofurantoin Monohyd/M-Cryst 100 Mg Capsule PO 04/18/25 23:59 100 mg BID SERENA Administration Olanzapine 30 mg 04/14/25 21:00 04/19/25 20:54 Olanzapine 10 Mg Tablet PO 30 mg BEDTIME SERENA Administration Omeprazole 20 mg 04/15/25 06:30 04/20/25 05:35 Omeprazole 20 Mg Capsule.Dr PO 20 mg BID@0630,1630 SERENA Administration Prazosin HCl 5 mg/ Prazosin 6 mg 04/14/25 21:00 04/15/25 20:40 HCl 1 mg PO 6 mg BEDTIME SERENA Administration Prazosin HCl 7 mg 04/16/25 21:00 04/19/25 20:53 Prazosin Hcl 1 Mg Capsule PO 7 mg BEDTIME SERENA Administration Quetiapine Fumarate 100 mg 04/14/25 17:48 04/20/25 09:33 Quetiapine Fumarate 100 Mg Tablet PO 100 mg TID PRN Administration Anxiety Saliva Substitute 1 spray 04/18/25 15:54 04/19/25 06:55 Dry Mouth [place] 60 Ml [place] MUCOUS MEM 1 spray Q2H PRN Administration dry mouth Sertraline HCl 200 mg 04/15/25 09:00 04/20/25 08:35 Sertraline Hcl 100 Mg Tablet PO 200 mg DAILY SERENA Administration Tizanidine HCl 4 mg 04/16/25 12:35 04/19/25 05:50 Tizanidine Hcl 4 Mg Tablet PO 4 mg TID PRN Administration Back spasm Trazodone HCl 250 mg 04/14/25 21:00 04/19/25 20:53 Trazodone Hcl 100 Mg Tablet PO 250 mg BEDTIME SERENA Administration Medical Decision Making Medical Decision Making MDM Narrative: This is a 39-year-old female who presents emergency department with concerns of suicidal ideation with plan to walk in front of traffic. On arrival, patient well-appearing, appears to be under no acute distress. Patient has a history of auditory or visual hallucinations. Patient with positive nitrites, and trace leuk esterases, could be attributed to a slight urinary tract infection therefore we will start on antibiotics. She reports that she had some dysuria several days ago however this has improved. Labs were obtained prior to my evaluation, she has slight leukocytosis 11.5, H&H revealing a microcytic anemia with an H&H of 11.3/35.7. Chemistry revealing no significant electrolyte derangement. U tox positive for amphetamines and marijuana. Patient was seen by the care team, recommending psychiatric bed search. Patient will be placed in physician observation. 6:03 PM 04/14/2025 (Tiesha Jimenez PA-C): Observation initiated pending psychiatric bed search. Differential Diagnosis Differential Diagnoses: The differential diagnosis associated with the presentation includes Suicidal ideation, homicidal ideation, depression, anxiety Admission/Observation Consideration of admission/observation: Escalation of care including admission/observation considered Lab Data [facility] Lab Attestation statement: I reviewed the patient's lab results. See MDM 04/14/25 16:40 04/16/25 07:42 Labs: Lab Results 04/14/25 04/14/25 04/14/25 Range/Units 16:39 16:40 21:04 WBC 11.5 H (4.8-10.8) X10*3/uL RBC 4.77 (4.20-5.50) X10*6/uL Hgb 11.3 L (12.0-16.0) g/dl Hct 35.7 L (37.0-47.0) % MCV 74.8 L (80.0-98.0) fL MCH 23.7 L (27.0-33.0) pg MCHC 31.7 (31.0-35.0) g/dl RDW 15.9 (11.0-16.0) % Plt Count 378 (160-400) X10*3/uL MPV 9.7 (9.4-12.3) fL Immature Gran % (Auto) 0.4 (0.0-0.4) % Neut % (Auto) 61.9 (45-73) % Lymph % (Auto) 29.1 (20-40) % [place] % (Auto) 5.4 (2-11) % Eos % (Auto) 2.9 (0-4) % Baso % (Auto) 0.3 (0-2) % Lymph # (Auto) 3.4 (1.2-4.9) X10*3/uL [place] # (Auto) 0.6 (0.1-1.2) X10*3/uL Eos # (Auto) 0.3 (0.0-0.4) X10*3/uL Baso # (Auto) 0.0 (0.0-0.2) X10*3/uL Abs Immat Gran (auto) 0.05 H (0.00-0.03) X10*3/uL Absolute Neuts (auto) 7.1 (2.0-8.3) x10*3/uL Absolute Nucleated RBC 0.000 (0.0-0.012) X10*3/uL Nucleated RBC % (auto) 0.0 (0.0-0.2) /100WBC Sodium 140 (135-145) mmol/L Potassium 3.7 (3.3-5.1) mmol/L Chloride 108 (96-108) mmol/L Carbon Dioxide 26 (22-29) mmol/L Anion Gap 10 L (12-20) BUN 13 (9-16) mg/dL Creatinine 0.88 (0.5-1.4) mg/dL Estim Creat Clear Calc 102.1 Estimated GFR > 60 POC Glucose 102 (60-115) mg/dL Random Glucose 101 (60-115) mg/dL Calcium 9.0 (8.4-10.2) mg/dL Total Bilirubin 0.3 (0.0-1.0) mg/dL AST 22 (5-31) U/L ALT 31 (0-31) U/L Alkaline Phosphatase 84 (39-117) U/L Total Protein 7.4 (6.5-8.0) g/dL Albumin 4.3 (3.5-5.0) g/dL Urine Color Yellow Urine Appearance Cloudy Urine pH 7.0 (5.0-9.0) Ur Specific [place] 1.025 (1.005-1.025) Urine Protein Trace (Neg-Trace) mg/dL Urine Glucose (UA) Negative (Negative) mg/dL Urine Ketones Negative (Negative) mg/dL Urine Blood Negative (Negative) Urine Nitrite Positive H (Negative) Ur Leukocyte Esterase Trace H (Negative) Urine RBC 0-2 (0-2) /HPF Urine WBC 0-5 (0-5) /HPF Ur Squamous Epith Cells 11-20 (0-2) /HPF Urine Bacteria 4+ (None Seen) Hyaline Casts 0-2 (0-2) /LPF Urine Test NEGATIVE (NEGATIVE) Urine Opiates Screen Not Detected (Not Detect) Ur Buprenorphine Scrn Not Detected (Not Detect) ng/mL Ur Oxycodone Screen Not Detected (Not Detect) ng/mL Urine Methadone Screen Not Detected (Not Detect) ng/mL Urine Fentanyl Screen Not Detected (Not Detect) Ur Barbiturates Screen Not Detected (Not Detect) Ur Phencyclidine Scrn Not Detected (Not Detect) Ur Amphetamines Screen POSITIVE H (Not Detect) U Benzodiazepines Scrn Not Detected (Not Detect) Urine Cocaine Screen Not Detected (Not Detect) U Marijuana (THC) Screen POSITIVE H (Not Detect) Ethyl Alcohol < 10 mg/dL Radiology Impression Discussion of test interpretation with radiology: I have reviewed the radiologist's reading. External Record Review External record reviewed: Inpatient record, Office record, Outpatient record, Prior outpatient labs, Prior outpatient radiology, Primary care record and Outside ED record Discharge Plan Discharge Clinical Impression: Suicidal ideation, UTI (urinary tract infection) Patient Disposition: Admitted As Inpatient Interventions: Admission Worksheet (ED) Last Done: 04/15/25 14:55 Discharge Date/Time: 04/15/25 14:57
--- NOTE | 2025-04-14 18:22 | MHC.CARE ---
Pt meets criteria for an IPLOC admission. Section 12a in chart for safety.
[2025-04-14 21:08] LABS: Glucose, Whole Blood 102 mg/dL (60-115)
[2025-04-14] MEDS: Prazosin HCL 5 MG, Prazosin HCL 1 MG 6 MG PO (21:56)
--- NOTE | 2025-04-15 | ECG_ITS ---
Test Reason : rule out prolonged QTC Blood Pressure : */* mmHG Vent. Rate : 66 BPM Atrial Rate : 66 BPM P-R Int : 130 ms QRS Dur : 72 ms QT Int : 384 ms P-R-T Axes : 33 49 37 degrees QTcB Int : 402 ms Normal sinus rhythm Low voltage QRS Borderline ECG When compared with ECG of 14-Jan-2025 11:13, No significant change was found Referred By: Tiesha Jimenez Electronically Signed By: CRISTHIAN LANDAVERDE
[2025-04-15 06:08] VITALS: BP 109/62; PULSE 64; RESP 16; TEMP 37.2; O2SAT 96
--- NOTE | 2025-04-15 07:28 | PC.NURSE ---
Assumed care of patient at 0645, patient appears to be in no apparent distress this am, calm and cooperative, offering no complaints to this RN. Continue plan of care for IPLOC
[2025-04-15] MEDS: Fluticasone Propionate 250 MCG BLST.W.DEV 1 PUFF INHALE ×2 (09:03→22:29)
[2025-04-15 14:58] VITALS: BP 127/79; PULSE 107; RESP 17; TEMP 36.6; O2SAT 98
[2025-04-15 14:59] VITALS: BMI 32.6
--- NOTE | 2025-04-15 18:30 | PC.ADMIT ---
Patient was admitted from the ED POD on a CV for tx of PTSD, Anxiety D/O and Unspecified Depressive Disorder. Patient presented to the ED with SI with a plan to walk into traffic r/t recent life stressors, along with c/o AH. Upon admission assessment, patient is pleasant and cooperative, A&Ox4 with linear thought process. She denies any current SI but did endorse command AH prior to admission telling her to kill herself , along with VH of shadows. Patient reports her sleep and appetite have been poor due to outside stressors (issues with the father of her child and dealing with a friend who has been self harming ). Patient reports she has been compliant with her medication, but states her Trazadone has not been effective lately with aiding in her sleep. Tox was positive for marijuana, pt denies all other substance use. Skin check unremarkable and pt placed on 15 minute checks. I just want to be able to get some sleep and get my appetite back .
[2025-04-15 20:00] VITALS: BP 119/56; PULSE 70; RESP 16; TEMP 37.3; O2SAT 97
[2025-04-15] MEDS: Prazosin HCL 5 MG, Prazosin HCL 1 MG 6 MG PO (20:40)
[2025-04-15] MEDS: Flu Vacc TS2025-26(6mo up)/PF 0.5 ML SYRINGE IM (20:43)
--- NOTE | 2025-04-15 20:54 | PHA.MEDREC ---
Pharmacy Consult ? Medication Reconciliation Pharmacy has reviewed the medication reconciliation done by nursing. claims match med list.
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
[2025-04-16 07:35] VITALS: BP 97/53; PULSE 89; RESP 16; TEMP 36.6; O2SAT 96
[2025-04-16] MEDS: Nicotine 21 MG PATCH.TD24 TRANSDERMA (08:08)
[2025-04-16 08:22] LABS: Alanine Aminotransferase 32 U/L (0-31); Albumin Level 4.7 g/dL (3.5-5.0); Alkaline Phosphatase 109 U/L (39-117); Anion Gap 13 (12-20); Aspartate Amino Transferase 27 U/L (5-31); Blood Urea Nitrogen 13 mg/dL (9-16); Calcium 9.4 mg/dL (8.4-10.2); Carbon Dioxide 24 mmol/L (22-29); Chloride 107 mmol/L (96-108); Cholesterol 248 mg/dL (<200); Creatinine Clr Calc Pharmacy 98.9; Estimated Glomerular Filt Rate > 60; HDL Cholesterol 30 mg/dL (>40); Potassium 4.0 mmol/L (3.3-5.1); Sodium 140 mmol/L (135-145); Total Protein 8.2 g/dL (6.5-8.0); Triglycerides 231 mg/dL (<150)
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
[2025-04-16] MEDS: Fluticasone Propionate 250 MCG BLST.W.DEV 1 PUFF INHALE ×2 (08:25→20:56)
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
[2025-04-16] MEDS: Magnesium Hydrox/Alum Hydrox 30 ML ORAL.SUSP PO (12:30)
[2025-04-16 20:00] VITALS: BP 97/53; PULSE 76; RESP 20; TEMP 36.8; O2SAT 99
[2025-04-17 07:10] VITALS: BP 120/78; PULSE 97; RESP 16; TEMP 36.6; O2SAT 99
[2025-04-17] MEDS: Fluticasone Propionate 250 MCG BLST.W.DEV 1 PUFF INHALE ×2 (08:45→20:46)
[2025-04-17] MEDS: Nicotine 21 MG PATCH.TD24 TRANSDERMA (08:46)
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
[2025-04-17] MEDS: Magnesium Hydrox/Alum Hydrox 30 ML ORAL.SUSP PO (17:19)
[2025-04-17 20:00] VITALS: BP 109/53; PULSE 70; RESP 18; TEMP 36.6; O2SAT 94
[2025-04-17 20:47] VITALS: BP 109/53
[2025-04-17 20:48] VITALS: BP 109/53
[2025-04-17] MEDS: Milk of Magnesia 30 ML ORAL.SUSP PO (20:51)
[2025-04-18] MEDS: Nicotine 21 MG PATCH.TD24 TRANSDERMA (06:26)
--- NOTE | 2025-04-18 06:28 | PC.NURSE ---
requested and given nicotine patch at this time
[2025-04-18 08:00] VITALS: BP 123/79; PULSE 90; RESP 20; TEMP 36.7; O2SAT 98
--- NOTE | 2025-04-18 08:56 | P.PNPSI_ITS ---
Subjective Subjective Date of Service: 04/18/25 Reason For Visit: crisis Interim History: Chart reviewed, case discussed w/ nursing staff Pt had poor sleep last night 2/2 her roommate who was up all night. She denies any nightmares last night w/ the addition of cyproheptadine Endorses poor appetite but states it's a chronic issue and has improved since her admission. Took Maalox yesterday w/ good effect in reducing heart burn c/o chronic lower back pain. asked for adjustment in her pain med c/o dysuria. On antibiotics for UTI Asks to increase meds for insomnia/anxiety. Reports hearing AH but she isn't bothered by them and tells them to go away'. Reports seeing shadows She would like to be d/c'd on Saturday, plans to return to the skilled nursing [facility]: Appearance: Grooming/hygiene wnl. Good eye contact. Sitting in interview room watching TV Attitude:Cooperative Speech: Fluent and wnl in regard to volume, tone, prosody Motor activity: Calm and without any tics, tremors or dyskinesias. Mood: as noted above Affect: calm, fairly bright Thought process: goal directed Thought content: as noted above. Perception: Does not appear to respond to internal stimuli Insight/judgment: fair Medication Compliance: Yes Diagnostics Vital Signs (24Hr): Vital Signs - 24 hr 04/17/25 20:00 04/17/25 20:47 04/17/25 20:48 Temperature 98 F Pulse Rate 70 Respiratory Rate 18 Blood Pressure 109/53 L 109/53 L 109/53 L Pulse Oximetry 94 Oxygen Delivery Method Room Air BMI result Body Mass Index 32.6 Labs 04/14/25 16:40 04/16/25 07:42 Medications Medications Current Medications Acetaminophen (Acetaminophen 325 Mg Tablet) 650 mg PO Q6H PRN PRN Reason: Headache/Pain, Scale 1-10 Al Hydroxide/Mg Hydroxide (Magnesium Hydrox/Alum Hydrox 30 Ml Oral.Susp) 30 ml PO Q6H PRN PRN Reason: Heartburn/Nausea Last Admin: 04/17/25 17:19 Dose: 30 ml Benztropine Mesylate (Benztropine Mesylate 0.5 Mg Tablet) 0.5 mg PO BID [facility] Last Admin: 04/17/25 20:50 Dose: 0.5 mg Calcium Carbonate (Calcium Carbonate 750 Mg Tab.Chew) 750 mg PO Q4H PRN PRN Reason: Heartburn Clonidine HCl (Clonidine Hcl 0.1 Mg Tablet) 0.1 mg PO BID [facility]; Protocol Last Admin: 04/17/25 20:48 Dose: 0.1 mg Cyproheptadine HCl (Cyproheptadine Hcl 4 Mg Tablet) 4 mg PO BEDTIME [facility] Last Admin: 04/17/25 20:48 Dose: 4 mg Docusate Sodium (Docusate Sodium 100 Mg Capsule) 100 mg PO BID [facility] Last Admin: 04/17/25 20:48 Dose: 100 mg Fluticasone Propionate (Fluticasone Propionate 250 Mcg Blst.W.Dev) 1 puff INHALE RBID [facility] Last Admin: 04/17/25 20:46 Dose: 1 puff Gabapentin (Gabapentin 100 Mg Capsule) 100 mg PO TID [facility] Last Admin: 04/17/25 20:51 Dose: 100 mg Hydroxyzine HCl (Hydroxyzine Hcl 50 Mg Tablet) 100 mg PO BID PRN PRN Reason: Anxiety Magnesium Hydroxide (Milk Of Magnesia 30 Ml Oral.Susp) 30 ml PO DAILY PRN PRN Reason: Constipation Last Admin: 04/17/25 20:51 Dose: 30 ml Metformin HCl (Metformin Hcl 500 Mg Tablet) 500 mg PO BEDTIME [facility] Last Admin: 04/17/25 20:49 Dose: 500 mg Nicotine (Nicotine 21 Mg Patch.Td24) 21 mg TRANSDERMA DAILY [facility] Last Admin: 04/18/25 06:26 Dose: 21 mg Nicotine Polacrilex (Nicotine Polacrilex 2 Mg Gum) 4 mg BUCCAL Q2H PRN PRN Reason: Nicotine Cravings Nitrofurantoin Macrocrystals (Nitrofurantoin Monohyd/M-Cryst 100 Mg Capsule) 100 mg PO BID [facility] Stop: 04/18/25 23:59 Last Admin: 04/17/25 20:48 Dose: 100 mg Olanzapine (Olanzapine 10 Mg Tablet) 30 mg PO BEDTIME [facility] Last Admin: 04/17/25 21:18 Dose: 30 mg Omeprazole (Omeprazole 20 Mg Capsule.Dr) 20 mg PO BID@0630,1630 [facility] Last Admin: 04/18/25 05:58 Dose: 20 mg Prazosin HCl (Prazosin Hcl 1 Mg Capsule) 7 mg PO BEDTIME [facility] Last Admin: 04/17/25 20:47 Dose: 7 mg Quetiapine Fumarate (Quetiapine Fumarate 100 Mg Tablet) 100 mg PO TID PRN PRN Reason: Anxiety Last Admin: 04/17/25 12:43 Dose: 100 mg Sertraline HCl (Sertraline Hcl 100 Mg Tablet) 200 mg PO DAILY [facility] Last Admin: 04/17/25 08:45 Dose: 200 mg Tizanidine HCl (Tizanidine Hcl 4 Mg Tablet) 4 mg PO TID PRN PRN Reason: Back spasm Last Admin: 04/17/25 05:41 Dose: 4 mg Trazodone HCl (Trazodone Hcl 100 Mg Tablet) 250 mg PO BEDTIME [facility] Last Admin: 04/17/25 20:49 Dose: 250 mg Allergies Allergies Allergy/AdvReac Type Severity Reaction Status Date / Time almond Allergy Severe Anaphylaxis Verified 04/14/25 15:45 Penicillins Allergy Severe Anaphylaxis Verified 04/14/25 15:45 shrimp Allergy Severe Anaphylaxis Verified 04/14/25 15:45 peanuts Allergy Severe Anaphylaxis Uncoded 04/14/25 15:45 Assessment & Plan Assessment & Plan (1) UTI (urinary tract infection): Status: Acute Code(s): N39.0 - Urinary tract infection, site not specified (2) Cocaine use disorder: Status: Acute Code(s): F14.10 - Cocaine abuse, uncomplicated (3) Cannabis abuse: Status: Acute Code(s): F12.10 - Cannabis abuse, uncomplicated (4) PTSD (post-traumatic stress disorder): Status: Acute Code(s): F43.10 - Post-traumatic stress disorder, unspecified (5) Major depression with psychotic features: Status: Acute Code(s): F32.3 - Major depressive disorder, single episode, severe with psychotic features Plan HPI: Patient is a 39 year old, single, Bilingual speaking, female with hx of with history of MDD, PTSD and cocaine use disorder who presented to the ED via ambulance after patient was assessed by [facility] in the community. Patient reported suicidal ideation with a plan to walk into traffic, as well as experiencing auditory and visual hallucinations Formulation/clinical reasoning: increasing depression and anxiety, SI with plan to jump walk into traffic and +AH telling her to run. Poor sleep and poor appetite d/t staying at homeless skilled nursing. Increasing PTSD -nightmare symptoms of being raped and that current medication is not helpful. Patient could be safe in restrictive environment, benefits for medication management, and refer patient back to outpatient psychiatric services for aftercare Hospital course: 04/15/25: Continue with home meds. Jeffor for possile side effecs and effectivenss Encourage group participation. Monitor for SI and AVH. Currently has passive SI without plan/intent. +AH telling me to run but no plan to run. Plan Patient on 15 minute checks for safety. Admitted to [facility]. CV. Work with treatment team to do collateral. Possible back to skilled nursing/respite patient is on ABT for UTI: last dose will be on 04/18/25. Utox +AMP and THC, only report using THC. 04/16: Pt is agreeable w/ plan to titrate prazosin to 7 mg qhs to target nightmares/hyperarousal sx in setting of PTSD. Will otherwise conitnue current tx plan 04/17: Pt agreeable w/ plan to start cyproheptadine 4 mg qhs off-label for tx of nightmares. Reduced prn hydroxyzine from 100 mg tid to 100 mg bid to reduce anticholinergic load with addition of cyproheptadine. 04/18: Pt denies SI. Endorses AH/VH but denies significant distress from them and denies CAH. She requested multiple med changes but was accepting of plan to continue current psychotropic med regimen. Ordered lidocaine patch for LBP and pyridium prn for bladder pain/dysuria. Pt would like to be d/c'd on Saturday back to skilled nursing Reason for continued inpatient stay Substantial Risk for: med/psych decompensation Time Spent With Patient Time: Total time managing care of this patient today ____ minutes.
[2025-04-18 08:58] VITALS: BP 123/79
[2025-04-18] MEDS: Fluticasone Propionate 250 MCG BLST.W.DEV 1 PUFF INHALE ×2 (09:02→20:23)
[2025-04-18] MEDS: Lidocaine 4 % Patch ADH..PATCH 1 PATCH TRANSDERMA (11:00)
[2025-04-18 20:00] VITALS: BP 112/56; PULSE 72; RESP 16; TEMP 36.7; O2SAT 100
[2025-04-19] MEDS: Fluticasone Propionate 250 MCG BLST.W.DEV 1 PUFF INHALE ×2 (05:51→20:52)
--- NOTE | 2025-04-19 06:48 | PC.NURSE ---
Kymberly reported some shortness of breath in the AM. Patient given her scheduled inhaler for 0800 early per nursing evaluation of need.
[2025-04-19] MEDS: Nicotine 21 MG PATCH.TD24 TRANSDERMA (06:55)
[2025-04-19] MEDS: Dry Mouth Spray 60 ML SPRAY 1 SPRAY MUCOUS MEM (06:55)
[2025-04-19 07:43] VITALS: BP 107/58; PULSE 70; RESP 16; TEMP 36.7; O2SAT 99
[2025-04-19 08:49] VITALS: BP 107/58
[2025-04-19] MEDS: Lidocaine 4 % Patch ADH..PATCH 1 PATCH TRANSDERMA (09:00)
--- NOTE | 2025-04-19 10:37 | HO.PSYCHPN ---
Subjective Subjective Date of Service: 04/19/25 Reason For Visit: crisis Subjective Notes: Conditional Voluntary Interim History: Active on unit. social with peers. attending groups. Patient reports feeling better and happy today; pt stated, I want to leave tomorrow. I'm feeling better and I slept like a baby last night . denies SI/HI/VH. She continues to report auditory hallucinations but states they are less . Patient reports she plans on following up with her outpatient providers. Medication Compliance: Yes Side effects from medications: No Attending Groups: Yes Mental Status Exam Mental Status Exam Narrative: Pt is alert and oriented; behavior is cooperative, friendly and calm; dressed in casual attire; mood is described as good ; eye contact appropriate; Speech is normal rate, volume and not pressured; thought process is organized; Thought content is on discharge; denies SI/HI/VH. +AH, pt reports they are less . Diagnostics Vital Signs (24Hr): Vital Signs - 24 hr 04/18/25 20:00 04/19/25 07:43 04/19/25 08:49 Temperature 98.1 F 98.1 F Pulse Rate 72 70 Respiratory Rate 16 16 Blood Pressure 112/56 L 107/58 L 107/58 L Pulse Oximetry 100 99 Oxygen Delivery Method Room Air Room Air BMI result Body Mass Index 32.6 Labs 04/14/25 16:40 04/16/25 07:42 Medications Medications Current Medications Acetaminophen (Acetaminophen 325 Mg Tablet) 650 mg PO Q6H PRN PRN Reason: Headache/Pain, Scale 1-10 Last Admin: 04/19/25 05:50 Dose: 650 mg Al Hydroxide/Mg Hydroxide (Magnesium Hydrox/Alum Hydrox 30 Ml Oral.Susp) 30 ml PO Q6H PRN PRN Reason: Heartburn/Nausea Last Admin: 04/17/25 17:19 Dose: 30 ml Benztropine Mesylate (Benztropine Mesylate 0.5 Mg Tablet) 0.5 mg PO BID [facility] Last Admin: 04/19/25 08:50 Dose: 0.5 mg Calcium Carbonate (Calcium Carbonate 750 Mg Tab.Chew) 750 mg PO Q4H PRN PRN Reason: Heartburn Clonidine HCl (Clonidine Hcl 0.1 Mg Tablet) 0.1 mg PO BID [facility]; Protocol Last Admin: 04/19/25 08:49 Dose: 0.1 mg Cyproheptadine HCl (Cyproheptadine Hcl 4 Mg Tablet) 4 mg PO BEDTIME [facility] Last Admin: 04/18/25 20:21 Dose: 4 mg Docusate Sodium (Docusate Sodium 100 Mg Capsule) 100 mg PO BID [facility] Last Admin: 04/19/25 08:50 Dose: 100 mg Fluticasone Propionate (Fluticasone Propionate 250 Mcg Blst.W.Dev) 1 puff INHALE RBID [facility] Last Admin: 04/19/25 05:51 Dose: 1 puff Gabapentin (Gabapentin 100 Mg Capsule) 100 mg PO TID [facility] Last Admin: 04/19/25 08:50 Dose: 100 mg Hydroxyzine HCl (Hydroxyzine Hcl 50 Mg Tablet) 100 mg PO BID PRN PRN Reason: Anxiety Last Admin: 04/19/25 09:00 Dose: 100 mg Lidocaine (Lidocaine 4 % Patch Adh..Patch) 1 patch TRANSDERMA DAILY [facility]; Protocol Last Admin: 04/19/25 09:00 Dose: 1 patch Magnesium Hydroxide (Milk Of Magnesia 30 Ml Oral.Susp) 30 ml PO DAILY PRN PRN Reason: Constipation Last Admin: 04/17/25 20:51 Dose: 30 ml Metformin HCl (Metformin Hcl 500 Mg Tablet) 500 mg PO BEDTIME [facility] Last Admin: 04/18/25 20:20 Dose: 500 mg Nicotine (Nicotine 21 Mg Patch.Td24) 21 mg TRANSDERMA DAILY [facility] Last Admin: 04/19/25 06:55 Dose: 21 mg Nicotine Polacrilex (Nicotine Polacrilex 2 Mg Gum) 4 mg BUCCAL Q2H PRN PRN Reason: Nicotine Cravings Olanzapine (Olanzapine 10 Mg Tablet) 30 mg PO BEDTIME [facility] Last Admin: 04/18/25 20:19 Dose: 30 mg Omeprazole (Omeprazole 20 Mg Capsule.Dr) 20 mg PO BID@0630,1630 [facility] Last Admin: 04/19/25 05:50 Dose: 20 mg Phenazopyridine HCl (Phenazopyridine Hcl 200 Mg Tablet) 200 mg PO TID PRN PRN Reason: dysuria and/or bladder pain Stop: 04/20/25 09:55 Prazosin HCl (Prazosin Hcl 1 Mg Capsule) 7 mg PO BEDTIME [facility] Last Admin: 04/18/25 20:21 Dose: 7 mg Quetiapine Fumarate (Quetiapine Fumarate 100 Mg Tablet) 100 mg PO TID PRN PRN Reason: Anxiety Last Admin: 04/19/25 09:00 Dose: 100 mg Saliva Substitute (Dry Mouth Nelson 60 Ml Nelson) 1 spray MUCOUS MEM Q2H PRN PRN Reason: dry mouth Last Admin: 04/19/25 06:55 Dose: 1 spray Sertraline HCl (Sertraline Hcl 100 Mg Tablet) 200 mg PO DAILY [facility] Last Admin: 04/19/25 08:49 Dose: 200 mg Tizanidine HCl (Tizanidine Hcl 4 Mg Tablet) 4 mg PO TID PRN PRN Reason: Back spasm Last Admin: 04/19/25 05:50 Dose: 4 mg Trazodone HCl (Trazodone Hcl 100 Mg Tablet) 250 mg PO BEDTIME [facility] Last Admin: 04/18/25 20:17 Dose: 250 mg Allergies Allergies Allergy/AdvReac Type Severity Reaction Status Date / Time almond Allergy Severe Anaphylaxis Verified 04/14/25 15:45 Penicillins Allergy Severe Anaphylaxis Verified 04/14/25 15:45 shrimp Allergy Severe Anaphylaxis Verified 04/14/25 15:45 peanuts Allergy Severe Anaphylaxis Uncoded 04/14/25 15:45 Assessment & Plan Assessment & Plan (1) Major depression with psychotic features: Status: Acute Code(s): F32.3 - Major depressive disorder, single episode, severe with psychotic features (2) PTSD (post-traumatic stress disorder): Status: Acute Code(s): F43.10 - Post-traumatic stress disorder, unspecified (3) Cocaine use disorder: Status: Acute Code(s): F14.10 - Cocaine abuse, uncomplicated (4) Cannabis abuse: Status: Acute Code(s): F12.10 - Cannabis abuse, uncomplicated Plan Patient is a 39 year old, single, Bilingual speaking, female with hx of with history of MDD, PTSD and cocaine use disorder who presented to the ED via ambulance after patient was assessed by [facility] in the community. Patient reported suicidal ideation with a plan to walk into traffic, as well as experiencing auditory and visual hallucinations Formulation/clinical reasoning: increasing depression and anxiety, SI with plan to jump walk into traffic and + telling her to run. Poor sleep and poor appetite [facility]/t [facility]. Increasing PTSD -nightmare symptoms of being raped and that current medication is not helpful. Patient could be safe in restrictive environment, benefits for medication management, and refer patient back to outpatient psychiatric services for aftercare Plan: Patient on 15 minute checks for safety. Admitted to [facility]. CV. Work with treatment team to do collateral. Possible back to [facility]resp[facility] patient is on ABT for UTI: last dose will be on 04/18/25. Utox +AMP and THC, only report using THC. 04/15:Continue with home meds. Montor for possile side effecs and effectivenss Encourage group participation. Monitor for SI and AVH. Currently has passive SI without plan/intent. +AH telling me to run but no plan to run. 04/16: Pt is agreeable w/ plan to titrate prazosin to 7 mg qhs to target nightmares/hyperarousal sx in setting of PTSD. Will otherwise conitnue current tx plan 04/17: Pt agreeable w/ plan to start cyproheptadine 4 mg qhs off-label for tx of nightmares. Reduced prn hydroxyzine from 100 mg tid to 100 mg bid to reduce anticholinergic load with addition of cyproheptadine. 04/18: Pt denies SI. Endorses AH/VH but denies significant distress from them and denies CAH. She requested multiple med changes but was accepting of plan to continue current psychotropic med regimen. Ordered lidocaine patch for LBP and pyridium prn for bladder pain/dysuria. Pt would like to be d[facility]c'd [facility] 04/19: Active on unit. social with peers. attending groups. Patient reports feeling better and happy today; pt stated, I want to leave tomorrow. I'm feeling better and I slept like a baby last night . denies SI/HI/VH. She continues to report auditory hallucinations but states they are less . Patient reports she plans on following up with her outpatient providers. Patient educated on: diagnosis and medication risk/benefits Reason for continued inpatient stay Substantial Risk for: stable for discharge Time Spent With Patient Time: Total time managing care of this patient today __20__ minutes.
[2025-04-19 20:00] VITALS: BP 107/56; PULSE 76; RESP 16; TEMP 37.3; O2SAT 98
[2025-04-19 20:53] VITALS: BP 107/56
[2025-04-19 20:54] VITALS: BP 107/56
[2025-04-20 08:34] VITALS: BP 139/86; PULSE 84; RESP 16; TEMP 36.7; O2SAT 99
[2025-04-20] MEDS: Fluticasone Propionate 250 MCG BLST.W.DEV 1 PUFF INHALE (08:35)
[2025-04-20] MEDS: Nicotine 21 MG PATCH.TD24 TRANSDERMA (08:38)
[2025-04-20] MEDS: Lidocaine 4 % Patch ADH..PATCH 1 PATCH TRANSDERMA (08:40)
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
[2025-04-20] MEDS: Naloxone HCl Nasal TAKE HOME 4 MG SPRAY 8 MG NOSTRILALT (09:34)
== END 2025-04-20 10:35 | disposition home or self-care (01) | DRG 751 ==
LOC: HO.ED 17:51 → HO.PADLT16 04-15 14:16
PROVIDERS: Admitting Provider Registered Nurse; Emergency Provider Emergency Medicine Emergency Medical Services; Responsible Provider Registered Nurse; Visit Provider Psychiatry & Neurology Psychiatry
DX: F32.3 Major depressive disorder, single episode, severe with psychotic features (principal); R45.851 Suicidal ideations; E11.9 Type 2 diabetes mellitus without complications; F12.10 Cannabis abuse, uncomplicated; F17.210 Nicotine dependence, cigarettes, uncomplicated; J45.909 Unspecified asthma, uncomplicated; Z71.6 Tobacco abuse counseling; F43.10 Post-traumatic stress disorder, unspecified; F14.10 Cocaine abuse, uncomplicated; G89.29 Other chronic pain; M54.9 Dorsalgia, unspecified; F19.10 Other psychoactive substance abuse, uncomplicated; N39.0 Urinary tract infection, site not specified; Z23 Encounter for immunization; Z59.01 Sheltered homelessness; Z79.51 Long term (current) use of inhaled steroids; Z79.84 Long term (current) use of oral hypoglycemic drugs; Z79.899 Other long term (current) drug therapy
CPT/HCPCS: 36415; 80053; 80061; 80307; 81001; 81025; 82947; 83036; 85025; 87086; 87088; 87186; 90656; 93005; 99285; S9485

== ENCOUNTER → 2025-04-15 09:42 | Outpatient (BNV) | payer MEDICAID, SELFPAY | PROVIDERS: Admitting Provider Registered Nurse; Emergency Provider Emergency Medicine Emergency Medical Services; Responsible Provider Registered Nurse; Visit Provider Internal Medicine | DX: Z13.6 Encounter for screening for cardiovascular disorders (principal) | CPT/HCPCS: 93010 ==

== ENCOUNTER → 2025-04-15 14:13 | Outpatient (BNV) | payer MEDICAID, SELFPAY | PROVIDERS: Admitting Provider Registered Nurse; Emergency Provider Emergency Medicine Emergency Medical Services; Responsible Provider Registered Nurse; Visit Provider Nurse Practitioner Family | DX: J45.909 Unspecified asthma, uncomplicated (principal) | CPT/HCPCS: 99221 ==

== ENCOUNTER → 2025-04-15 14:13 | Outpatient (BNV) | payer OTHER, SELFPAY | PROVIDERS: Admitting Provider Registered Nurse; Emergency Provider Emergency Medicine Emergency Medical Services; Responsible Provider Registered Nurse; Visit Provider Psychiatry & Neurology Psychiatry | DX: F32.3 Major depressive disorder, single episode, severe with psychotic features (principal); F14.10 Cocaine abuse, uncomplicated; F12.10 Cannabis abuse, uncomplicated; F43.11 Post-traumatic stress disorder, acute | CPT/HCPCS: 99231; 99232 ==